=== PATIENT | female | born 1950 | race Caucasian/White ===

== ENCOUNTER 2019-09-30 08:51 | Outpatient (CLI) | payer MEDICARE, SELFPAY ==
--- NOTE | ~2019-09-30 | MM_ITS ---
EXAMINATION: MM screening [place] BI w ramses HISTORY: Screening mammogram TECHNIQUE: Craniocaudal and mediolateral oblique 3-D tomosynthesis images were obtained and synthetic 2-D images were generated. CAD analysis was submitted and interpreted. COMPARISON: No prior mammogram is available for comparison at this institution. BREAST PARENCHYMAL COMPOSITION: There are scattered areas of fibroglandular density. FINDINGS: RIGHT BREAST: There is focal asymmetry in the upper outer quadrant of the right breast. LEFT BREAST: There is no evidence of suspicious mass, calcification, or architectural distortion to s uggest malignancy. There has been no significant interval change. IMPRESSION: 1. Focal asymmetry in the upper outer quadrant of the right breast which may represent the patient's baseline however no comparison is currently available. 2. Recommend routine screening mammography in one year. BI-RADS Category 0: Incomplete: Needs comparison with prior mammograms. Reviewed, dictated and finalized at location A. WORKER IMPRESSION: 1. Focal asymmetry in the upper outer quadrant of the right breast which may re present the patient's baseline however no comparison is currently available. 2. Recommend routine screening mammography in one year. BI-RADS Category 0: Incomplete: Needs comparison with prior mammograms.
--- NOTE | ~2019-09-30 | DEXA_ITS ---
Bone Density Report Name: Ani Ortiz Age: 69 Sex: Female Ethnicity: White Date of : 1950 Indication: postmenopausal; hysterectomy; Referring Provider: HARPER, LUIS Study: Bone densitometry was performed. Exam Date: September 30, 2019 Accession number: [id number] Bone Density: Region BMD T-score Z-score Classification AP Spine (L1-L4) 1.003 -0.4 1.5 Normal Femoral Neck (Left) 0.643 -1.9 -0.2 Osteopenia Total Hip (Left) 0.837 -0.9 0.5 Normal Total Hip Bilateral Avg 0.804 -1.1 0.3 Osteopenia Femoral Neck (Right) 0.616 -2.1 -0.4 Osteopenia Total Hip (Right) 0.770 -1.4 0.0 Osteopenia World Health Organization criteria for BMD impression classify patients as: Normal (T-score at or above -1.0), Osteopenia (T-score between -1.0 and -2.5), or Osteoporosis (T-score at or below -2.5). 10-year Fracture Risk: FRAX not reported because: Treated for osteoporosis Clinical Information Provided by Patient: Is being treated for osteoporosis Has used the following medications: Fosamax (i.e. alendronate) Has the following medical conditions: Hysterectomy Patient maximum height was 62 Menopause Age: 52 Drinks caffeinated beverages Onset of menses at age 13 Number of children 3 Impression: The patient has low bone mass, based on the Right Femoral Neck T-score. Discussion: It is important to ask patients whether they are taking their medications and to encourage continued and appropriate compliance with their osteoporosis therapies to reduce fracture risk. It is also important to review their risk factors and encourage appropriate calcium and vitamin D intakes, exercise, fall prevention and other lifestyle measures. Follow-Up: Consider a repeat BMD and Vertebral Fracture Assessment (VFA) exam in 2 years or sooner if medically necessary, to reassess this patient's status. Reported by: [facility] on 09/30/2019 9:39:00 AM. Reviewed, dictated and finalized at location ARadha ELIZONDO
== END 2019-09-30 08:52 | disposition home or self-care (01) ==
LOC: ANHIMG 09:02
PROVIDERS: PCP Physician Assistant; Visit Provider Physician Assistant
DX: Z12.31 Encounter for screening mammogram for malignant neoplasm of breast (principal); M85.80 Other specified disorders of bone density and structure, unspecified site; M85.852 Other specified disorders of bone density and structure, left thigh; M85.851 Other specified disorders of bone density and structure, right thigh
CPT/HCPCS: 77063; 77067; 77080

== ENCOUNTER 2020-01-09 07:38 | Outpatient (CLI) | payer MEDICARE, SELFPAY ==
--- NOTE | ~2020-01-09 | CT_ITS ---
EXAMINATION: CT lung screening EXAM DATE: 01/09/2020 08:03 INDICATION: Personal history of nicotine dependence. TECHNIQUE: Spiral low dose CT of the chest without contrast. Axial, coronal and sagittal images were reviewed. The dose-length product (DLP) for this examination was 61.35 mGy-cm. The exposure was ta ilored according to patient size (auto mA exposure control), and iterative reconstruction (ASIR) was used as additional dose reduction technique. There is no prior study for comparison. FINDINGS: Pleural-based right minor fissure 3 mm lobe nodule. There is 2 mm left upper lobe nodule. Mild emphysema and hyperinflation. There is mild bronchiectasis. Tracheobronchial tree is patent. There is no mediastinal, hilar or axillary lymphadenopathy. There are no pleural or pericardial eff usions. There is no pneumothorax. Heart normal in size. There is moderate to severe coronary ar terial calcification, arterial sclerosis. There is left nephrolithiasis. Cholecystectomy clips. There is small sliding gastroesophageal hiatal hernia. There is thoracic spondylosis without osteoblastic or osteolytic lesions identified. IMPRESSION: 1. Lung-RADS category 2S, benign appearance or behavior (<1% chance of malignancy); recommend continu ed LDCT screening in 1 year. 2. Moderate to severe coronary artery calcifications. Consider follow-up nonemergent cardiology evalu ation if not recently evaluated. Reviewed, dictated and finalized at location B. RVISOR OF OPERATIONS IMPRESSION: 1. Lung-RADS category 2S, benign appearance or behavior (<1% chance of malignan cy); recommend continued LDCT screening in 1 year. 2. Moderate to severe coronary artery calcifications. Consider follow-up noneme rgent cardiology evaluation if not recently evaluated.
== END 2020-01-09 07:39 | disposition home or self-care (01) ==
LOC: ANHIMG 07:45
PROVIDERS: PCP Physician Assistant; Visit Provider Physician Assistant
DX: Z12.2 Encounter for screening for malignant neoplasm of respiratory organs (principal); Z87.891 Personal history of nicotine dependence; I25.10 Atherosclerotic heart disease of native coronary artery without angina pectoris
CPT/HCPCS: G0297

== ENCOUNTER 2020-12-10 11:13 | Outpatient (CLI) | payer MEDICARE, SELFPAY ==
[2020-12-10 12:24] LABS: Alanine Aminotransferase 19 U/L (4-35); Albumin Level 4.1 g/dL (3.5-5.1); Alkaline Phosphatase 88 U/L (38-126); Anion Gap 7 mmol/L (8-16); Aspartate Amino Transferase 24 U/L (14-36); Bilirubin,Total 0.5 mg/dL (0.2-1.3); Blood Urea Nitrogen 16 mg/dL (7-17); Calcium 9.6 mg/dL (8.4-10.2); Carbon Dioxide 28 mmol/L (22-30); Chloride 107 mmol/L (98-107); Cholesterol 126 mg/dL (0-200); Estimated Glomerular Filt Rate 49; Glucose 97 mg/dL (65-105); HDL Direct 43 mg/dL; Potassium 4.2 mmol/L (3.4-5.0); Sodium 142 mmol/L (137-145); Triglycerides 86 mg/dL (<150)
[2020-12-10 12:34] LABS: LDL Cholesterol Direct 62 mg/dL
== END 2020-12-10 11:14 | disposition home or self-care (01) ==
PROVIDERS: PCP Physician Assistant; Visit Provider Internal Medicine Cardiovascular Disease
DX: I25.10 Atherosclerotic heart disease of native coronary artery without angina pectoris (principal); E78.2 Mixed hyperlipidemia
CPT/HCPCS: 36415; 80053; 80061

== ENCOUNTER 2021-01-20 07:54 | Outpatient (CLI) | payer MEDICARE, SELFPAY ==
--- NOTE | ~2021-01-20 | CT_ITS ---
EXAMINATION: CT lung screening EXAM DATE: 01/20/2021 08:23 INDICATION: Former smoker [id number]. TECHNIQUE: Spiral low dose CT of the chest without contrast. Axial, coronal and sagittal images were reviewed. The dose-length product (DLP) for this examination was 61.99 mGy-cm. The exposure was ta ilored according to patient size (auto mA exposure control), and iterative reconstruction (ASIR) was used as additional dose reduction technique. Comparison is made to prior examination from 01/09/2020. FINDINGS: Pleural-based right minor fissure 3 mm lobe nodule unchanged. There is 2 mm left upper lob e nodule unchanged. Mild emphysema and hyperinflation. There is mild bronchiectasis. Tracheobronchia l tree is patent. There is no mediastinal, hilar or axillary lymphadenopathy. There are no pleura l or pericardial effusions. There is no pneumothorax. Heart normal in size, with thin endocardial fat along the septal wall consistent with prior infarctio n. Cardiology consult was recommended on prior study if patient had not been recently evaluated. The re is moderate to severe coronary arterial calcification, arterial sclerosis unchanged. There is an aberrant right subclavian artery, a normal congenital variant. Large is exophytic left renal fluid density lesion measuring 4.4 cm incompletely imaged, statisticall y most likely cyst. There is left nephrolithiasis. Cholecystectomy clips. There is small sliding tana roesophageal hiatal hernia. There is mild thoracic spondylosis without osteoblastic or osteolytic le sions identified. There is no significant interval change. IMPRESSION: Lung-RADS category 2, benign appearance or behavior (<1% chance of malignancy); recommend continued LDCT screening in 1 year. Reviewed, dictated and finalized at location B. 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
== END 2021-01-20 07:55 | disposition home or self-care (01) ==
LOC: ANHIMG 07:58
PROVIDERS: PCP Physician Assistant; Visit Provider Physician Assistant
DX: Z87.891 Personal history of nicotine dependence (principal)
CPT/HCPCS: 71271

== ENCOUNTER → 2022-02-08 11:37 | Outpatient (CLI) | payer MEDICARE, SELFPAY ==
--- NOTE | ~2022-02-08 | XR_ITS ---
XR chest 2V DATE: 02/08/2022 11:50 INDICATION: Cough for one week TECHNIQUE: 2 views COMPARISON: 01/20/2021 CT lung screening FINDINGS: Normal heart size. Aortic calcification. No hilar or mediastinal enlargement. No pulmonary infiltrate or consolidation, pleural effusion or pulmonary vascular congestion or pneumo thorax. Diffuse osteopenia. Mild scoliosis of the thoracic spine. IMPRESSION: No active cardiopulmonary disease Reviewed, dictated and finalized at location A.
== END ==
PROVIDERS: PCP Physician Assistant; Visit Provider Physician Assistant
DX: R05.9 Cough, unspecified (principal)
CPT/HCPCS: 71046

== ENCOUNTER 2022-03-13 14:33 | Outpatient (CLI) | payer MEDICARE, SELFPAY ==
--- NOTE | ~2022-03-13 | DEXA_ITS ---
Bone Density Report Name: ZOË RAI Age: 71 Sex: Female Ethnicity: White Date of : 1950 Indication: postmenopausal; screening for osteoporosis; asthma or emphysema; hysterectomy; Referring Provider: HARPERLUIS Study: Bone densitometry was performed. Exam Date: March 13, 2022 Accession number: [id number] Bone Density: Region BMD T-score Z-score Classification AP Spine(L1-L4) 0.961 -0.8 1.3 Normal Femoral Neck (Left) 0.652 -1.8 0.0 Osteopenia Total Hip (Left) 0.815 -1.0 0.5 Normal Femoral Neck (Right) 0.628 -2.0 -0.2 Osteopenia Total Hip (Right) 0.742 -1.6 -0.1 Osteopenia Total Hip Mean 0.778 -1.3 0.2 Osteopenia World Health Organization criteria for BMD impression classify patients as: Normal (T-score at or above -1.0), Osteopenia (T-score between -1.0 and -2.5), or Osteoporosis (T-score at or below -2.5). 10-year Fracture Risk: FRAX not reported because: Treated for osteoporosis Clinical Information Provided by Patient: Is being treated for osteoporosis Has used the following medications: Vitamin D Has the following medical conditions: Asthma or Emphysema, Hysterectomy Patient maximum height was 62 Menopause Age: 44 Drinks caffeinated beverages Onset of menses at age 12 Number of children 3 Impression: The patient has low bone mass, based on the Right Femoral Neck T-score. Discussion: It is important to ask patients whether they are taking their medications and to encourage continued and appropriate compliance with their osteoporosis therapies to reduce fracture risk. It is also important to review their risk factors and encourage appropriate calcium and vitamin D intakes, exercise, fall prevention and other lifestyle measures. Follow-Up: Consider a repeat BMD and Vertebral Fracture Assessment (VFA) exam in 2 years or sooner if medically necessary, to reassess this patient's status. Reported by: CINDY on 03/13/2022 2:58:00 PM. Reviewed, dictated and finalized at location ARadha ELIZONDO
--- NOTE | ~2022-03-13 | MM_ITS ---
EXAMINATION: MM screening [place] w ramses HISTORY: Screening mammogram TECHNIQUE: Craniocaudal and mediolateral oblique 3-D tomosynthesis images were obtained and synthetic 2-D images were generated. CAD analysis was submitted and interpreted. COMPARISON: Outside 11/20/2016, 09/30/2019 bilateral screening mammogram examinations BREAST PARENCHYMAL COMPOSITION: There are scattered areas of fibroglandular density. FINDINGS: There is no evidence of suspicious mass, calcification, or architectural distortion to sugg est malignancy in either breast. There has been no suspicious interval change. IMPRESSION: 1. No mammographic evidence of malignancy. 2. Recommend routine screening mammography in one year. BI-RADS Category 1: Negative Reviewed, dictated and finalized at location A.
--- NOTE | ~2022-03-13 | CT_ITS ---
EXAMINATION: CT lung screening DATE: 03/13/2022 15:35 INDICATION: Personal history of nicotine dependence, prior smoker with 30 pack year history TECHNIQUE: Computed tomography (CT) of the chest was performed without intravenous contrast. The dose -length product (DLP) was 67.12 mGy-cm. Automated exposure control and iterative reconstruction techn [employer] were employed. COMPARISON: 01/20/2021 FINDINGS: There is a stable 2 mm nodule in the left upper lobe. No new pulmonary nodule is identified . The lungs are free of focal airspace opacities. There is mild atelectasis. There is no pleural effu nahum or pneumothorax. No pathologically enlarged thoracic lymph nodes are identified. The heart size is normal. 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 There is calcified coronary artery atherosclerosis. Subendocardial fat deposition in the heart suggests prior myocardial infarct ion. There is a small sliding hiatal hernia. The gallbladder is surgically absent. There is a partial ly imaged 4.5 cm cyst of the left kidney. An 8 mm nonobstructing stone is present in the upper pole o f the left kidney. IMPRESSION: 1. Lung-RADS category 2: Benign appearance or behavior. Continue annual screening with noncontrast lo w-dose chest CT in 12 months. Reviewed, dictated and finalized at location A. IMPRESSION: 1. Lung-RADS category 2: Benign appearance or behavior. Continue annual screeni ng with noncontrast low-dose chest CT in 12 months.
== END 2022-03-13 14:34 | disposition home or self-care (01) ==
PROVIDERS: PCP Physician Assistant; Visit Provider Physician Assistant
DX: Z12.31 Encounter for screening mammogram for malignant neoplasm of breast (principal); Z12.2 Encounter for screening for malignant neoplasm of respiratory organs; Z87.891 Personal history of nicotine dependence; Z78.0 Asymptomatic menopausal state; M85.852 Other specified disorders of bone density and structure, left thigh; M85.851 Other specified disorders of bone density and structure, right thigh
CPT/HCPCS: 71271; 77063; 77067; 77080

== ENCOUNTER 2022-04-08 16:41 | Observation (INO) | payer MEDICARE, SELFPAY ==
[2022-04-08] VITALS (13 sets, daily range): BP systolic 143–170; BP diastolic 69–81; PULSE 80–88; RESP 11–18; TEMP 36.4–36.5; O2SAT 90–99; BMI 27.1
--- NOTE | ~2022-04-08 | XR_ITS ---
EXAMINATION: XR chest 1V portable 04/08/2022 18:00 INDICATION: Dyspnea. PROCEDURE: AP portable chest COMPARISON: 02/08/2022 FINDINGS: The lungs are clear. Shallow inspiration with crowding of the pulmonary vessels. The cardio mediastinal silhouette is within normal limits. There are no pleural effusions. There is no pneumot horax suspected. IMPRESSION: 1: NO ACUTE CARDIOPULMONARY DISEASE. Reviewed, dictated and finalized at location A.
--- NOTE | ~2022-04-08 | CT_ITS ---
EXAMINATION: CT abdomen pelvis wo con DATE: 04/08/2022 17:11 INDICATION: Left flank pain and hematuria for 2 days. History of kidney stones. TECHNIQUE: Computed tomography (CT) of the abdomen and pelvis was performed without intravenous contr ast. The dose-length product was 358.73 mGy-cm. Automated exposure control and iterative reconstructi on technique were employed. COMPARISON: No prior studies for comparison. FINDINGS: Heart size normal. No significant pleural or pericardial effusion. Small hiatal hernia. Mil d atherosclerosis. No evidence for lymphadenopathy. Status post cholecystectomy. The liver, spleen, pancreas, adrenal glands are unremarkable. There are right renal cysts. There are left renal stones. There is moderate left hydroureteronephrosis secondar y to an obstructing distal left ureteral stone measuring 7 mm, image 134. There are left renal cysts. Nonobstructive bowel gas pattern. Normal appendix. Status post hysterectomy. No free air or free flui d. IMPRESSION: 1. Obstructing distal left ureteral stone in the pelvis measuring 7 mm with moderate resultant hydrou reteronephrosis. 2: Nonobstructing left nephrolithiasis. Reviewed, dictated and finalized at location A. IMPRESSION: 1. Obstructing distal left ureteral stone in the pelvis measuring 7 mm with mod erate resultant hydroureteronephrosis. 2: Nonobstructing left nephrolithiasis.
--- NOTE | ~2022-04-08 | XR_ITS ---
XR abdomen/kub 1V 04/08/2022 18:25 Indication: Left renal and ureteral stones Procedure: KUB Comparison: CT dated 04/08/2022 Findings: r there is a 10 x 5 mm left renal stone overlying the upper pole of the left kidney. There is a 7 mm distal left ureteral stone overlying the left sacrum. There are pelvic phleboliths. Bowel g as pattern nonobstructive. Moderate lumbar spondylosis. Impression: 1: Left renal and distal ureteral stones are radiopaque and identified by KUB. Reviewed, dictated and finalized at location A. Impression: 1: Left renal and distal ureteral stones are radiopaque and identified by KUB.
--- NOTE | ~2022-04-08 | XR_ITS ---
XR retrograde pyelo w/stent LT DATE: 04/09/2022 09:14 INDICATION: 7 mm obstructing distal left ureteral calculus TECHNIQUE: 119.4 seconds fluoroscopy time 1.23 mGym2 Multiple spot C-arm images during left retrograde pyelogram and left internal urinary stent placement COMPARISON: 04/08/2022 CT abdomen pelvis FINDINGS: Engineering Consultant radiograph reveals the calcified obstructing calculus of the left ureter anterior to the lower aspect of the left sacroiliac joint. There is prominent hydroureteronephrosis proximal to t his level. There is subsequent placement of a left internal urinary stent, proximal pigtail overlying the left r enal pelvis, the distal pigtail overlying the left side of the base of the urinary bladder. IMPRESSION: Obstructing distal left ureteral calculus with hydroureteronephrosis. Left internal urina ry stent placement Please refer to urology procedure report. Reviewed, dictated and finalized at Location [facility]. Reviewed, dictated and finalized at location A. IMPRESSION: Obstructing distal left ureteral calculus with hydroureteronephrosi s. Left internal urinary stent placement Please refer to urology procedure report.
--- NOTE | 2022-04-08 16:59 | ED.GENADULT ---
HPI - General Adult General Chief complaint: Urogenital-Female Stated complaint: blood in urine Time Seen by Provider: 04/08/22 16:48 History of Present Illness HPI narrative: 72-year-old female with history of kidney stones presents here with some blood she noticed in her urine this morning, along with pain that went from her left back to the left lower quadrant, it is tender to touch, she states it feels like her kidney stones which she last had about 12 years ago. Minimal nausea, has not taken anything yet. No vomiting or diarrhea. No dysuria. No fevers or chills Related Data Home Medications Medication Instructions Recorded Confirmed albuterol sulfate 90 mcg/actuation inh inhalation PRN Dyspnea 04/08/22 aerosol inhaler bupropion HCl 300 mg 24 hr tablet, 300 tablet PO DAILY 04/08/22 extended release buspirone 15 mg tablet 15 tablet TID 04/08/22 clonazepam 1 mg tablet 1 tablet PRN Anxiety 04/08/22 fluoxetine 20 mg capsule 20 cap DAILY 04/08/22 fluoxetine 40 mg capsule 40 cap DAILY 04/08/22 rosuvastatin 40 mg tablet 40 tablet DAILY 04/08/22 zolpidem 10 mg tablet 10 tablet HS 04/08/22 Allergies Allergy/AdvReac Type Severity Reaction Status Date / Time cephalexin [From Keflex] Allergy Rash Verified 04/08/22 16:42 erythromycin base Allergy Unknown Verified 04/08/22 16:59 Penicillins Allergy Unknown Verified 04/08/22 16:42 Tetracyclines Allergy Rash Verified 04/08/22 16:42 Review of Systems Review of Systems: CONST: No fever. HEENT: No sore throat C/V: No chest pain RESP: No cough GI: Reports abdominal pain, nausea : No dysuria. M/S: No joint pain. SKIN: No rash. NEURO: [No headache or focal numbness or weakness] PSYCH: [No depression] [facility] Past Medical History Medical History Kidney stones Surgical History Surgical History (Updated 04/08/22 @ 17:03 by Laverne Ugarte MD) H/O: hysterectomy Exam Narrative: EXAMINATION OF ORGAN SYSTEMS/BODY AREAS: Constitutional: Vital signs per nursing GENERAL: Appears slightly uncomfortable in bed HEAD: Normal with no signs of head trauma. EYES: EOMI, conjunctiva normal ENT: Hearing grossly intact LUNGS: Nonlabored breathing. HEART: [Regular rate and rhythm] ABD: [Soft], [tender to palpation] left lower quadrant, CVAT EXT: Normal range of motion SKIN: [No rashes or lesions.] NEURO: [Alert and oriented x 3. No gross focal sensory or strength deficits.] PSYCH: Normal affect Course Vital Signs Vital signs: Vital Signs Temperature 97.7 F 04/08/22 16:44 Pulse Rate 80 04/08/22 16:44 Respiratory Rate 16 04/08/22 16:44 Blood Pressure 170/75 H 04/08/22 16:44 Pulse Oximetry 98 04/08/22 16:44 Temperature 97.7 F 04/08/22 16:44 Pulse Rate 86 04/08/22 18:31 Respiratory Rate 15 04/08/22 18:31 Blood Pressure 143/69 H 04/08/22 18:31 Pulse Oximetry 93 04/08/22 18:31 Medical Decision Making [facility] Narrative Medical decision making narrative: 72-year-old female presenting with left lower quadrant pain, vital signs stable, exam shows tenderness to left lower quadrant and left flank, differential detailed below, CT does show left ureteral stone that is obstructing, 7 mm, patient did require multiple IV medications for pain and still not very well under control, I do therefore feel was necessary to admit her for inpatient therapy, case discussed with urologist will likely take her to the OR in the morning, case discussed with hospitalist was excepting. At this time, patient started saying that she was having some chest pain, midsternal, nonradiating, never had history of heart problems in the past, stat EKG ordered and reviewed by myself, no STEMI, troponin and chest x-ray are ordered and unremarkable. Differential Diagnosis Differential Diagnosis: UTI/pyelonephritis, diverticulitis, gastroenteritis, nephrolithiasis Vital Signs Vital Signs: Vital Signs Tem
[2022-04-08] MEDS: SODIUM CHLORIDE 0.9% IV 1,000 ML 999 ML IV CONT (17:17)
[2022-04-08] MEDS: ONDANSETRON INJ 4 MG/2 ML VIAL IV PUSH ×2 (17:17→20:52)
[2022-04-08] MEDS: MORPHINE SULFATE (*CRX) 4 MG/ML INJ IV PUSH (17:17)
[2022-04-08 17:24] LABS: Basophils Absolute Auto 0.1 K/mm3 (0.0-0.1); Basophils Percent Auto 0.6 % (0.2-1.2); Eosinophils Absolute Auto 0.2 K/mm3 (0-0.3); Hematocrit 41.4 % (37.0-47.0); Hemoglobin 13.1 g/dL (12.0-15.0); Immature Granulocyte Absolute 0.04 K/mm3 (0.00-0.031); Immature Granulocyte Percent A 0.5 % (0-0.5); Lymphocytes Absolute Auto 1.58 K/mm3 (0.9-3.2); Lymphocytes Percent Auto 18.2 % (18.3-44.2); Mean Corpuscular HGB Conc 31.6 g/dl (32-36); Mean Corpuscular Hemoglobin 29.7 pg (26-34); Mean Corpuscular Volume 93.9 fl (80-100); Mean Platelet Volume 10.6 fl (7.4-10.4); Monocytes Absolute Auto 0.8 K/mm3 (0.1-0.6); Monocytes Percent Auto 8.7 % (2.6-8.5); Neutrophils Absolute Auto 6.1 K/mm3 (1.3-6.7); Platelet Count Result 231 k/mm3 (150-375); Red Blood Count 4.41 M/mm3 (4.2-5.4); Red Cell Distribution Width 12.6 % (11.5-14.5); White Blood Count 8.7 K/mm3 (4.5-10.0)
[2022-04-08 17:27] LABS: Add Urine Microscopic? YES; Appearance Urine Slightly Cloudy (Clear); Bilirubin Urine Negative (Negative); Blood Urine 3+ (Negative); Color Urine Red (Yellow); Glucose Urine UA Negative (Negative); Ketones Urine Negative (Negative); Leukocyte Esterase Ur Trace LEU/UL (Negative); Nitrate Urine Negative (Negative); Protein Urine 2+ mg/dL (Negative); Specific Grav Ur >= 1.030 (1.001-1.035); Urobilinogen Urine 0.2 mg/dL (<2.0)
[2022-04-08 17:35] LABS: Calcium Oxalate Crystals Urine Present /hpf; RBC Urine >75 /hpf (0-2); WBC Urine 0-3 /hpf
--- NOTE | 2022-04-08 17:45 | ECG_ITS ---
Measurements Intervals [place] Rate: 80 P: 64 WI: 175 QRS: 49 QRSD: 96 T: 40 QT: 393 QTc: 455 Interpretive Statements SINUS RHYTHM BASELINE WANDER- V6 NORMAL ECG Electronically Signed On 04-09-2022 15:11:35 CDT by Vicente Espino D.O.
[2022-04-08 17:51] LABS: Alanine Aminotransferase 19 U/L (6-35); Albumin Level 3.5 g/dL (3.5-5.1); Alkaline Phosphatase 86 U/L (38-126); Anion Gap 7 mmol/L (8-16); Aspartate Amino Transferase 23 U/L (14-36); Bilirubin,Total 0.2 mg/dL (0.2-1.3); Blood Urea Nitrogen 12 mg/dL (7-17); Calcium 8.3 mg/dL (8.4-10.2); Carbon Dioxide 23 mmol/L (22-30); Chloride 112 mmol/L (98-107); Estimated CRCL calculation 35 ml/min; Estimated Glomerular Filt Rate 44; Glucose 103 mg/dL (65-110); Lipase 48 U/L (23-300); Potassium 3.7 mmol/L (3.4-5.0); Sodium 142 mmol/L (137-145)
[2022-04-08] MEDS: HYDROmorphone HCL INJ (*CRX) 1 MG/ML SYR IV PUSH (17:59)
--- NOTE | 2022-04-08 18:08 | WPDANESEPP ---
Anes - Eval Pre Procedure Date/Time: 04/08/22 18:08 Pre Op Diagnosis: L Ureteral Stone Patient Data Age: 72 Gender: F Height: 1.57 m Weight: 68 kg Last Vital Signs Temp 36.5 C 04/08/22 16:44 Pulse 80 04/08/22 16:44 Resp 16 04/08/22 16:44 BP 170/75 H 04/08/22 16:44 Pulse Ox 98 04/08/22 16:44 Allergies Allergy/AdvReac Type Severity Reaction Status Date / Time cephalexin [From Keflex] Allergy Rash Verified 04/08/22 16:42 erythromycin base Allergy Unknown Verified 04/08/22 16:59 Penicillins Allergy Unknown Verified 04/08/22 16:42 Tetracyclines Allergy Rash Verified 04/08/22 16:42 Home Medications Medication Instructions Recorded Confirmed Type albuterol sulfate 90 mcg/actuation 2 puff inhalation Q4-5H PRN Dyspnea 04/08/22 04/08/22 History aerosol inhaler bupropion HCl 300 mg 24 hr tablet, 300 tablet PO DAILY 04/08/22 04/08/22 History extended release buspirone 15 mg tablet 15 mg TID PRN Anxiety 04/08/22 04/08/22 History clonazepam 1 mg tablet 1 tablet BID PRN Anxiety 04/08/22 04/08/22 History fluoxetine 20 mg capsule 20 cap DAILY 04/08/22 04/08/22 History fluoxetine 40 mg capsule 40 cap DAILY 04/08/22 04/08/22 History rosuvastatin 40 mg tablet 40 tablet DAILY 04/08/22 04/08/22 History zolpidem 10 mg tablet 10 tablet HS 04/08/22 04/08/22 History Laboratory Tests 04/08/22 04/08/22 04/08/22 17:18 17:18 17:32 WBC 8.7 K/mm3 K/mm3 (4.5-10.0) RBC 4.41 M/mm3 M/mm3 (4.2-5.4) Hgb 13.1 g/dL g/dL (12.0-15.0) Hct 41.4 % % (37.0-47.0) MCV 93.9 fl fl (80-100) MCH 29.7 pg pg (26-34) MCHC 31.6 g/dl L g/dl (32-36) RDW 12.6 % % (11.5-14.5) Plt Count 231 k/mm3 k/mm3 (150-375) MPV 10.6 fl H fl (7.4-10.4) Immature Gran % (Auto) 0.5 % % (0-0.5) Neut % (Auto) 70.0 % % (45.5-73.1) Lymph % (Auto) 18.2 % L % (18.3-44.2) [place] % (Auto) 8.7 % H % (2.6-8.5) Eos % (Auto) 2.0 % % (0-4.4) Baso % (Auto) 0.6 % % (0.2-1.2) Lymph # (Auto) 1.58 K/mm3 K/mm3 (0.9-3.2) [place] # (Auto) 0.8 K/mm3 H K/mm3 (0.1-0.6) Eos # (Auto) 0.2 K/mm3 K/mm3 (0-0.3) Baso # (Auto) 0.1 K/mm3 K/mm3 (0.0-0.1) Abs Immat Gran (auto) 0.04 K/mm3 H K/mm3 (0.00-0.031) Absolute Neuts (auto) 6.1 K/mm3 K/mm3 (1.3-6.7) Absolute Nucleated RBC 0.0 K/mm3 K/mm3 (0.0-0.012) Nucleated RBC % 0.0 % % (0.0-0.2) Sodium 142 mmol/L mmol/L (137-145) Potassium 3.7 mmol/L mmol/L (3.4-5.0) Chloride 112 mmol/L H mmol/L (98-107) Carbon Dioxide 23 mmol/L mmol/L (22-30) Anion Gap 7 mmol/L L mmol/L (8-16) BUN 12 mg/dL mg/dL (7-17) Creatinine 1.20 mg/dL H mg/dL (0.7-1.0) Estim Creat Clear Calc 35 ml/min ml/min Estimated GFR 44 L (59 - ) Glucose 103 mg/dL mg/dL (65-110) Calcium 8.3 mg/dL L mg/dL (8.4-10.2) Total Bilirubin 0.2 mg/dL mg/dL (0.2-1.3) AST 23 U/L U/L (14-36) ALT 19 U/L U/L (6-35) Alkaline Phosphatase 86 U/L U/L (38-126) Total Protein 6.0 g/dL L g/dL (6.3-8.2) Albumin 3.5 g/dL g/dL (3.5-5.1) Lipase 48 U/L U/L (23-300) Urine Color Red H (Yellow) Urine Appearance Slightly cloudy (Clear) Urine pH 6.0 (5.0-9.0) Ur Specific [place] >= 1.030 (1.001-1.035) Urine Protein 2+ mg/dL H mg/dL (Negative) Urine Glucose (UA) Negative mg/dL mg/dL (Negative) Urine Ketones Negative mg/dL mg/dL (Negative) Ur Blood (Man) 3+ H (Negative) Urine Nitrate Negative (Negative) Urine Bilirubin Negative (Negative) Urine Urobilinogen 0.2 mg/dL mg/dL (<2.0) Leukocyte E
[2022-04-08 18:35] LABS: Troponin I < 0.012 ng/mL (0.000-0.034)
--- NOTE | 2022-04-08 20:06 | PM.IMHP ---
H&P: HPI History of Present Illness Date/Time: 04/08/22 20:06 Chief Complaint: hematuria and flank pain Narrative: 72-year-old female with past medical history significant for kidney stones is presenting with hematuria and flank plain concerning for another kidney stone. She stated that she 1st noted the blood in her urine this morning and the pain started in her left flank and radiated down to the left lower quadrant and was tender to palpation. She states it feels like a kidney stone she had about 12 years ago. She did have a little bit of associated nausea, no emesis or diarrhea. No fevers or chills. In the ER, she was noted to be afebrile vital signs were stable. CT stone protocol did show a left ureteral stone with obstructing hydronephrosis that was about 7 mm in diameter. She was given multiple doses of IV pain medication with associated IV fluids. Urology was consulted and will evaluate. While in the ER, she did have an episode of chest pain that was mid substernal and did not radiate, EKG was nonacute and troponin was negative. Chest x-ray also ordered was not acute. CBC was stable BMP showed a creatinine of 1.2 but was otherwise within normal limits. Baseline creatinine is unknown, but in 2020 her creatinine is 1.1. Urinalysis was positive for blood but no signs of infection. Review of Systems Review of Systems: Twelve point review of systems was reviewed and is negative except as noted in the HPI [facility] Past Medical History Medical History Kidney stones Surgical History Surgical History H/O: hysterectomy Family History Family History (Updated 04/08/22 @ 21:07 by Jorge Wells RN) Mother Hypercholesteremia Father Glioblastoma Social History Social History Years smoked: 40 Smoking status: Former smoker Alcohol intake: current Drinks per week: 1 Substance use: never Spiritual care concerns: No Meds Home Medications and Allergies Home Medications Medication Instructions Recorded Confirmed Type albuterol sulfate 90 mcg/actuation 2 puff inhalation Q4-5H PRN Dyspnea 04/08/22 04/08/22 History aerosol inhaler bupropion HCl 300 mg 24 hr tablet, 300 tablet PO DAILY 04/08/22 04/08/22 History extended release buspirone 15 mg tablet 15 mg TID PRN Anxiety 04/08/22 04/08/22 History clonazepam 1 mg tablet 1 tablet BID PRN Anxiety 04/08/22 04/08/22 History fluoxetine 20 mg capsule 20 cap DAILY 04/08/22 04/08/22 History fluoxetine 40 mg capsule 40 cap DAILY 04/08/22 04/08/22 History rosuvastatin 40 mg tablet 40 tablet DAILY 04/08/22 04/08/22 History zolpidem 10 mg tablet 10 tablet HS 04/08/22 04/08/22 History Allergies Allergy/AdvReac Type Severity Reaction Status Date / Time cephalexin [From Dhingana] Allergy Rash Verified 04/08/22 16:42 erythromycin base Allergy Unknown Verified 04/08/22 16:59 Penicillins Allergy Unknown Verified 04/08/22 16:42 Tetracyclines Allergy Rash Verified 04/08/22 16:42 Vital Signs Vital Signs - 24 hr 04/08/22 16:44 04/08/22 17:46 04/08/22 17:47 Temperature 97.7 F Pulse Rate 80 82 84 Respiratory Rate 16 14 16 Blood Pressure 170/75 H 170/81 H Pulse Oximetry 98 94 96 Oxygen Flow Rate 04/08/22 18:00 04/08/22 18:01 04/08/22 18:15 Temperature Pulse Rate 81 80 81 Respiratory Rate 11 L 12 15 Blood Pressure 156/71 H Pulse Oximetry 91 90 94 Oxygen Flow Rate 04/08/22 18:16 04/08/22 18:30 04/08/22 18:31 Temperature Pulse Rate 83 86 86 Respiratory Rate 17 17 15 Blood Pressure 158/72 H 143/69 H Pulse Oximetry 94 95 93 Oxygen Flow Rate 04/08/22 18:52 04/08/22 18:32 04/08/22 19:10 Temperature Pulse Rate 86 86 Respiratory Rate 13 16 Blood Pressure 146/69 H Pulse Oximetry 98 90 99 Oxygen Flow Rate 2 Exam Narrative: General: P
--- NOTE | 2022-04-08 20:20 | ADMGEN ---
This patient, Ani Ortiz, was admitted to Medical Room 244-. Patient/family oriented to hospital policies and general routines including ID bracelet, bed and alarms, visiting hours, pain management, procedures, bathroom and other care routines, personal items, smoking policy, room service/diet, and visiting hours. Information on how to activate the Rapid Response Team has been discussed. Patient/Family are encouraged to report perceived risks to care and to ask questions if they do not understand what they are told or what they should do.
[2022-04-08] MEDS: SODIUM CHLORIDE 0.9% IV 1,000 ML 125 ML IV CONT (20:52)
[2022-04-08] MEDS: CIPROFLOXACIN 400 MG/D5W 200ML 200 ML 200 MG IVPB (20:52)
[2022-04-08] MEDS: KETOROLAC 30 MG/ML VIAL (*BKC) IM (21:17)
[2022-04-08 21:27] LABS: Troponin I 0.024 ng/mL (0.000-0.034)
[2022-04-08] MEDS: ZOLPIDEM TARTRATE (*CRX) 5 MG TABLET 10 MG PO (22:45)
[2022-04-09] VITALS (19 sets, daily range): BP systolic 101–131; BP diastolic 47–59; PULSE 65–83; RESP 12–17; TEMP 36.1–37.2; O2SAT 95–100
[2022-04-09 00:50] LABS: Troponin I 0.077 ng/mL (0.000-0.034)
[2022-04-09] MEDS: KETOROLAC 30 MG/ML VIAL (*BKC) IV PUSH ×2 (03:19→19:41)
[2022-04-09 03:39] LABS: Troponin I 0.076 ng/mL (0.000-0.034)
[2022-04-09] MEDS: SODIUM CHLORIDE 0.9% IV 1,000 ML 125 ML IV CONT (05:38)
[2022-04-09 07:21] LABS: Anion Gap 3 mmol/L (8-16); Blood Urea Nitrogen 15 mg/dL (7-17); Calcium 8.1 mg/dL (8.4-10.2); Carbon Dioxide 25 mmol/L (22-30); Chloride 111 mmol/L (98-107); Estimated CRCL calculation 35 ml/min; Estimated Glomerular Filt Rate 44; Glucose 106 mg/dL (65-110); Potassium 4.5 mmol/L (3.4-5.0); Sodium 139 mmol/L (137-145)
--- NOTE | 2022-04-09 08:18 | WPDURCON ---
Assessment and Plan Assessment and plan (1) Flank pain, acute: Code(s): R10.9 - Unspecified abdominal pain Status: Acute (2) Calculus, ureteral: Code(s): N20.1 - Calculus of ureter Status: Acute Plan 72-year-old female with a left 7mm obstructing ureteral stone. Patient also with nonobstructing left renal stone 10mm. -I discussed options of medical expulsive therapy, ureteral stenting, ureteroscopy, ESWL with patient. She has elected proceed with cystoscopy and left ureteral stent insertion today with possible attempt for left ureteroscopy laser lithotripsy and stone extraction if the scope was easily advanced to the level of the stone. She understands the risks benefits and alternatives. She agrees to proceed with procedure today. She understands we will delay treatment of her nonobstructing renal stone to a later date. Patient time to ask questions and agrees to proceed Urology Consult Note HPI Date Seen: 04/09/22 Requesting Physician: Sarahi Stahl PA-C Primary Care Provider: Gabi Victoria, LUIS ARMANDO Consult Narrative Narrative: Ani Ortiz is a 72 year old female who presented to the ER last night with left-sided flank pain and hematuria. She was found to have a 7mm mid ureteral stone. The patient has a history kidney stone x1 having passed spontaneously 15 years ago. She currently denies fevers, chills, nausea vomiting. She continues to have left-sided flank pain. [facility] Past Medical History Medical History (Updated 04/09/22 @ 07:56 by Dion Augustine DO) Anxiety CAD (coronary artery disease) COPD (chronic obstructive pulmonary disease) Depression Kidney stones Surgical History Surgical History H/O: hysterectomy Family History Family History (Updated 04/08/22 @ 21:07 by Jorge Wells RN) Mother Hypercholesteremia Father Glioblastoma Social History Social History Years smoked: 40 Smoking status: Former smoker Alcohol intake: current Drinks per week: 1 Substance use: never Spiritual care concerns: No Meds Home Medications and Allergies Home Medications Medication Instructions Recorded Confirmed Type albuterol sulfate 90 mcg/actuation 2 puff inhalation Q4-5H PRN Dyspnea 04/08/22 04/08/22 History aerosol inhaler bupropion HCl 300 mg 24 hr tablet, 300 tablet PO DAILY 04/08/22 04/08/22 History extended release buspirone 15 mg tablet 15 mg TID PRN Anxiety 04/08/22 04/08/22 History clonazepam 1 mg tablet 1 tablet BID PRN Anxiety 04/08/22 04/08/22 History fluoxetine 20 mg capsule 20 cap DAILY 04/08/22 04/08/22 History fluoxetine 40 mg capsule 40 cap DAILY 04/08/22 04/08/22 History rosuvastatin 40 mg tablet 40 tablet DAILY 04/08/22 04/08/22 History zolpidem 10 mg tablet 10 tablet HS 04/08/22 04/08/22 History Allergies Allergy/AdvReac Type Severity Reaction Status Date / Time cephalexin [From Táximo] Allergy Rash Verified 04/08/22 16:42 erythromycin base Allergy Unknown Verified 04/08/22 16:59 Penicillins Allergy Unknown Verified 04/08/22 16:42 Tetracyclines Allergy Rash Verified 04/08/22 16:42 Vital Signs Vital Signs - 24 hr 04/08/22 16:44 04/08/22 17:46 04/08/22 17:47 Temperature 36.5 C Pulse Rate 80 82 84 Respiratory Rate 16 14 16 Blood Pressure 170/75 H 170/81 H Pulse Oximetry 98 94 96 Oxygen Delivery Oxygen Flow Rate 04/08/22 18:00 04/08/22 18:01 04/08/22 18:15 Temperature Pulse Rate 81 80 81 Respiratory Rate 11 L 12 15 Blood Pressure 156/71 H Pulse Oximetry 91 90 94 Oxygen Delivery Oxygen Flow Rate 04/08/22 18:16 04/08/22 18:30 04/08/22 18:31 Temperature Pulse Rate 83 86 86 Respiratory Rate 17 17 15 Blood Pressure 158/72 H 143/69 H Pulse Oximetry 94 95 93 Oxygen Delivery Oxygen Flow Rate 04/08/22 18:52 04/08/22 18:32 04/08/22 19:10
--- NOTE | 2022-04-09 08:22 | WPDHPUPDATE1 ---
History and Physical Update Update Date/Time: 04/09/22 08:22 History and Physical has been reviewed, including an updated exam of the patient. There are NO changes in the patient's condition. Risks, benefits, and alternatives have been discussed and questions answered. Patient agrees to proceed with procedure.
--- NOTE | 2022-04-09 08:24 | P.PNAN_ITS ---
Anes - Eval Final PreProcedure Day of Procedure 04/09/22 08:24 Patient weight: overweight Heart: regular rate and rhythm Lungs: clear to auscultation Airway: Mallampati scale class II Neurological: alert and oriented Last oral intake: >/= 8 hours ASA classification: III Emergent: no Anesthetic plan: proceed Anesthesia type and monitoring: general LMA and standard monitoring Results Review: All pre-operative results and documents have been reviewed as part of the pre- operative evaluation. Informed Consent: The patient's anesthetic plan and its attendant risks and benefits were discussed with the patient/family/POA. Questions were solicited and answers provided to the satisfaction of the patient/family/POA.
--- NOTE | 2022-04-09 08:26 | WPDANESEPP ---
Anes - Eval Pre Procedure Procedure: Operation Date: 04/09/22 09:00 Proposed Procedures p Cysto, RPG, Stone Ext, Stent Placement - Melani Fregoso MD Date/Time: 04/09/22 08:26 Pre Op Diagnosis: L Ureteral Stone Patient Data Age: 72 Gender: F Height: 1.57 m Weight: 67.4 kg Last Vital Signs Temp 36.6 C 04/09/22 04:01 Pulse 81 04/09/22 04:01 Resp 17 04/09/22 04:01 BP 109/57 L 04/09/22 04:01 Pulse Ox 97 04/09/22 04:01 O2 Del Method Room Air 04/08/22 21:00 O2 Flow Rate 2 04/08/22 18:52 Allergies Allergy/AdvReac Type Severity Reaction Status Date / Time cephalexin [From Keflex] Allergy Rash Verified 04/08/22 16:42 erythromycin base Allergy Unknown Verified 04/08/22 16:59 Penicillins Allergy Unknown Verified 04/08/22 16:42 Tetracyclines Allergy Rash Verified 04/08/22 16:42 Home Medications Medication Instructions Recorded Confirmed Type albuterol sulfate 90 mcg/actuation 2 puff inhalation Q4-5H PRN Dyspnea 04/08/22 04/08/22 History aerosol inhaler bupropion HCl 300 mg 24 hr tablet, 300 tablet PO DAILY 04/08/22 04/08/22 History extended release buspirone 15 mg tablet 15 mg TID PRN Anxiety 04/08/22 04/08/22 History clonazepam 1 mg tablet 1 tablet BID PRN Anxiety 04/08/22 04/08/22 History fluoxetine 20 mg capsule 20 cap DAILY 04/08/22 04/08/22 History fluoxetine 40 mg capsule 40 cap DAILY 04/08/22 04/08/22 History rosuvastatin 40 mg tablet 40 tablet DAILY 04/08/22 04/08/22 History zolpidem 10 mg tablet 10 tablet HS 04/08/22 04/08/22 History Laboratory Tests 04/08/22 04/08/22 04/08/22 17:18 17:18 17:31 WBC 8.7 K/mm3 K/mm3 (4.5-10.0) RBC 4.41 M/mm3 M/mm3 (4.2-5.4) Hgb 13.1 g/dL g/dL (12.0-15.0) Hct 41.4 % % (37.0-47.0) MCV 93.9 fl fl (80-100) MCH 29.7 pg pg (26-34) MCHC 31.6 g/dl L g/dl (32-36) RDW 12.6 % % (11.5-14.5) Plt Count 231 k/mm3 k/mm3 (150-375) MPV 10.6 fl H fl (7.4-10.4) Immature Gran % (Auto) 0.5 % % (0-0.5) Neut % (Auto) 70.0 % % (45.5-73.1) Lymph % (Auto) 18.2 % L % (18.3-44.2) Starr % (Auto) 8.7 % H % (2.6-8.5) Eos % (Auto) 2.0 % % (0-4.4) Baso % (Auto) 0.6 % % (0.2-1.2) Lymph # (Auto) 1.58 K/mm3 K/mm3 (0.9-3.2) Starr # (Auto) 0.8 K/mm3 H K/mm3 (0.1-0.6) Eos # (Auto) 0.2 K/mm3 K/mm3 (0-0.3) Baso # (Auto) 0.1 K/mm3 K/mm3 (0.0-0.1) Abs Immat Gran (auto) 0.04 K/mm3 H K/mm3 (0.00-0.031) Absolute Neuts (auto) 6.1 K/mm3 K/mm3 (1.3-6.7) Absolute Nucleated RBC 0.0 K/mm3 K/mm3 (0.0-0.012) Nucleated RBC % 0.0 % % (0.0-0.2) Sodium Potassium Chloride Carbon Dioxide Anion Gap BUN Creatinine Estim Creat Clear Calc Estimated GFR Glucose Calcium Total Bilirubin AST ALT Alkaline Phosphatase Troponin I < 0.012 ng/mL ng/mL (0.000-0.034) Total Protein Albumin Lipase Urine Color Red H (Yellow) Urine Appearance Slightly cloudy (Clear) Urine pH 6.0 (5.0-9.0) Ur Specific [place] >= 1.030 (1.001-1.035) Urine Protein 2+ mg/dL H mg/dL (Negative) Urine Glucose (UA) Negative mg/dL mg/dL (Negative) Urine Ketones Negative mg/dL mg/dL (Negative) Ur Blood (Man) 3+ H (Negative) Urine Nitrate Negative (Negative) Urine Bilirubin Negative (Negative) Urine Urobilinogen 0.2 mg/dL mg/dL (<2.0) Leukocyte Esterase Rfl Trace JAYANT/UL H JAYANT/UL (Negative) Urine RBC >75 /hpf H /hpf (0-2) Urine WBC 0-3 /hpf /hpf Calcium O
[2022-04-09 08:34] LABS: Hematocrit 35.2 % (37.0-47.0); Hemoglobin 10.9 g/dL (12.0-15.0); Mean Platelet Volume 10.6 fl (7.4-10.4); Platelet Count Result 193 k/mm3 (150-375); Red Blood Count 3.63 M/mm3 (4.2-5.4); Red Cell Distribution Width 12.5 % (11.5-14.5); White Blood Count 8.2 K/mm3 (4.5-10.0)
[2022-04-09] MEDS: LIDOCAINE HCL 2% GEL UROJET 10 ML PKG MUCOUS MEM (09:00)
[2022-04-09] MEDS: CIPROFLOXACIN 400 MG/D5W 200ML 200 ML 200 MG IVPB ×2 (09:07→20:58)
--- NOTE | 2022-04-09 09:11 | W.PM.PROC2 ---
Procedure Note - Detailed Date of Procedure 04/09/22 Pre-op Diagnosis L Ureteral Stone Post-op Diagnosis Same Procedure Performed Cystoscopy, left retrograde pyelogram, left ureteral stent insertion Surgeon Melani Fregoso MD Indications Obstructing 7mm ureteral stone Findings 7mm obstructing ureteral stone 10mm left renal stone Moderate left hydronephrosis Description of Procedure Informed consent was obtained. Patient was taken the operating. She was given preoperative IV antibiotics. She was induced with MAC anesthesia. She was prepped in the dorsal lithotomy position. Uro jet was instilled. We then inserted a 22 F cystoscope through the urethra into the bladder inspected bladder revealed there to be blood in the bladder however no mucosal abnormalities. The patient had bilateral orthotopic ureteral orifices. We did cannulate left ureteral orifice the wire did not easily pass beyond the level of the stone in the mid ureter. We then performed retrograde pyelogram that revealed moderate hydronephrosis above the level of the stone we were able this point to then pass the wire beyond the level of the stone and over the wire passed a 6 F variable length stent with a curl in the renal pelvis and curl in the bladder. Patient was then awakened taken recovery room stable condition Urine Output 300 Complications No immediate complications Condition Stable Disposition PACU
[2022-04-09] MEDS: LACTATED RINGERS 1,000 ML 30 ML IV CONT (09:17)
--- NOTE | 2022-04-09 11:05 | PM.CNCAR ---
Assessment and Plan Assessment and plan (1) Elevated troponin I level: Code(s): R77.8 - Other specified abnormalities of plasma proteins Status: Acute Assessment and Plan: Self-limited episode of chest pressure in the setting of severe abdominal pain related to obstructing ureteral calculus with significant BP elevation occurring at rest lasting no more than 5-10 minutes with subsequent mild troponin elevation without acute ischemic EKG changes. Most likely type 2 infarct, however, given evidence of significant coronary arterial calcification on CT and wrist fractures including dyslipidemia and history of tobacco abuse ischemic evaluation is warranted. Discussed at length. If patient has recurrent chest pain ischemic evaluation prior to discharge or of significant further troponin elevation discussed invasive versus noninvasive evaluation. Particularly given postoperative status prefer to pursue noninvasive evaluation as she would as well unless she develops recurrent symptoms concerning for unstable angina. She has been equivocal advised to notify us immediately should she have recurrent chest pain. She verbalized understanding and agrees. - Aspirin 81 mg daily - Continue statin therapy. - 2D echocardiogram in a.m. to assess for wall motion abnormalities, LV size and function valve pathology pulmonary pressures. - DVT prophylaxis - Repeat troponin for trend Will hold off on systemic anticoagulation unless significant further troponin elevation and a recurrent chest pain if okay with Urology. -further recommendations to follow based on troponin, symptoms and echocardiogram. (2) Chest pain at rest: Code(s): R07.9 - Chest pain, unspecified Status: Acute Assessment and Plan: As above. Monitor closely over recurrence. (3) Coronary artery calcification seen on CT scan: Code(s): I25.10 - Atherosclerotic heart disease of [place] coronary artery without angina pectoris Status: Acute Assessment and Plan: As above. Suggestive coronary artery disease luminal obstruction severity unknown. Previously patient has been completely asymptomatic without any limitations or exertional chest pain prior to admission. And medical therapy. (4) Mixed hyperlipidemia: Code(s): E78.2 - Mixed hyperlipidemia Status: Acute Assessment and Plan: Continue rosuvastatin goal LDL less than 70. (5) History of tobacco abuse: Code(s): Z87.891 - Personal history of nicotine dependence Status: Acute Assessment and Plan: Patient remains smoke-free. Encouraged to continue in this manner. (6) Calculus, ureteral: Code(s): N20.1 - Calculus of ureter Status: Acute Assessment and Plan: Per Urology. Doing well and asymptomatic status post cystoscopy and left ureteral stent insertion with moderate hydronephrosis above the level of the stone on the left. History of Present Illness History of Present Illness Consult date/time: Date of service: 04/09/22 11:05 Cardiology consultation at the request of Sarahi Stahl of the [facility] service for opinion regarding elevated troponin and chest pain Requesting physician: Sarahi Stahl PA-C Reason For Visit: L Ureteral Stone Narrative: Patient is a pleasant 72-year-old female followed by Dr. Lee as an outpatient for incidentally noted coronary artery calcification on CT chest, mixed hyperlipidemia, history of tobacco abuse, anxiety/depression who was in her usual state of health where she developed severe left flank pain and blood in her urine morning presentation. Patient indicated this felt similar to kidney stone she had many years ago. She admitted to some nausea but no emesis, diaphoresis, fevers, chills. While the emergency department lying supine in bed she developed mild chest pressure without radiation which lasted no more than 5-10 minutes resolving spontaneously. EKG was obtained without isch
[2022-04-09] MEDS: ROSUVASTATIN 10 MG TABLET 40 MG BY MOUTH (11:55)
[2022-04-09] MEDS: buPROPion HCL XL (24 HR) 150 MG TABCR 300 MG PO (11:55)
[2022-04-09] MEDS: FLUoxetine HCL 20 MG CAPSULE 60 MG BY MOUTH (11:55)
[2022-04-09 12:13] LABS: Troponin I 0.034 ng/mL (0.000-0.034)
[2022-04-09] MEDS: ASPIRIN 81 MG ENTERIC TABLET PO (13:43)
--- NOTE | 2022-04-09 13:57 | PM.IMPN ---
Progress Note: A&P Assessment and Plan (1) Calculus, ureteral: Code(s): N20.1 - Calculus of ureter Status: Acute Assessment and Plan: CT abdomen/pelvis showed obstructing distal left ureteral stone measuring 7 mm with moderate hydroureteronephrosis Status post cystoscopy, left retrograde pyelogram, left ureteral stent insertion Appreciate urology consultation Continue Flomax Continue ciprofloxacin Analgesics available as needed (2) Chest pain at rest: Code(s): R07.9 - Chest pain, unspecified Status: Acute Assessment and Plan: 04/08/2022 patient had episode of midsternal chest pain Troponin negative initially with increase to 0.77 and downward trend to 0.034 EKG with no acute changes CXR with no acute findings Chest pain resolved Appreciate cardiology consultation Started on aspirin 81 mg daily. Continue statin Echocardiogram pending (3) Elevated troponin I level: Code(s): R77.8 - Other specified abnormalities of plasma proteins Status: Acute Assessment and Plan: See above (4) Elevated serum creatinine: Code(s): R79.89 - Other specified abnormal findings of blood chemistry Status: Acute Assessment and Plan: Creatinine 1.2 are presentation Previous labs from 1 year ago showed creatinine 1.1. Unclear if this is patient's baseline or related to hydronephrosis Monitor renal function Subjective Date/time seen: 04/09/22 13:57 Interval history: Date of service: 04/09/2022 Ani Ortiz is a 72-year-old female with a history of CAD, COPD, anxiety, depression, and kidney stones who is seen in follow-up for left ureteral stone. She is feeling well at this time. Tolerated stent placement without difficulty. No pain at this time. No issues urinating. Reports good urinary flow. No dysuria or hematuria. No back or flank pain. No nausea or vomiting. No dizziness or lightheadedness. She has no chest pain today. No palpitations. No shortness of breath or cough. Tolerating her diet. Review of Systems Review of Systems: All systems reviewed & are unremarkable except as noted in HPI and below Exam Narrative: General: Thin well-appearing 72-year-old female, sitting up in bed, comfortable, NARD Neuro: awake, alert and oriented x4, speech clear, no focal neuro deficits noted HEENMT: normocephalic, atraumatic, EOMI, sclerae anicteric Respiratory: clear to auscultation bilaterally, nonlabored breathing Cardio: regular rate, regular rhythm with S1-S2 Abdomen: nondistended, normoactive bowel sounds, soft, nontender to palpation : mildly tender to palpation in left suprapubic region, no CVA tenderness Extremities: no edema, erythema, or tenderness to palpation, DP pulses 2+ bilaterally Skin: no rashes or lesions, warm and dry Psych: appropriate mood and affect, judgment and insight intact Objective Data Vital Signs Vital Signs: Vital Signs - 24 hr 04/08/22 16:44 04/08/22 17:46 04/08/22 17:47 Temperature 97.7 F Pulse Rate 80 82 84 Respiratory Rate 16 14 16 Blood Pressure 170/75 H 170/81 H Pulse Oximetry 98 94 96 Oxygen Delivery Oxygen Flow Rate 04/08/22 18:00 04/08/22 18:01 04/08/22 18:15 Temperature Pulse Rate 81 80 81 Respiratory Rate 11 L 12 15 Blood Pressure 156/71 H Pulse Oximetry 91 90 94 Oxygen Delivery Oxygen Flow Rate 04/08/22 18:16 04/08/22 18:30 04/08/22 18:31 Temperature Pulse Rate 83 86 86 Respiratory Rate 17 17 15 Blood Pressure 158/72 H 143/69 H Pulse Oximetry 94 95 93 Oxygen Delivery Oxygen Flow Rate 04/08/22 18:52 04/08/22 18:32 04/08/22 19:10 Temperature Pulse Rate 86 86 Respiratory Rate 13 16 Blood Pressure 146/69 H Pulse Oximetry 98 90 99 Oxygen Delivery Oxygen Flow Rate 2 04/08/22 20:35 04/08/22 21:00 04/09/22 01:23 Temperature 97.6 F Pulse Rate 88 83 Respiratory Rate 18 Blood Pressure 165/80 H Pulse
[2022-04-09] MEDS: ZOLPIDEM TARTRATE (*CRX) 5 MG TABLET 10 MG BY MOUTH (20:58)
[2022-04-10] VITALS (9 sets, daily range): BP systolic 109–137; BP diastolic 48–65; PULSE 65–84; RESP 16–18; TEMP 36.6–37.3; O2SAT 96–97
--- NOTE | 2022-04-10 | ECHO_ITS ---
Patient Info Name: Ani Ortiz Age: 72 years : 1950 Gender: Female Ht: 62 in Wt: 143 lbs BSA: 1.70 m2 HR: 81 bpm BP: 113 / 48 mmHg Heart Rhythm: Sinus Rhythm Technical Quality: Good Exam Date: 04/10/2022 8:25 AM Exam Location: [facility] Patient Status: Outpatient Admit Date: 04/08/2022 Staff Ordering Physician: Sarahi Stahl PA-C Museum Registrar: Justyna Livingston RDCS Attending Provider: Sarahi Stahl PA-C Referring Physician: Favio MEJIA; Exam Type: CA echo doppler color flow Study Info Indications R07.9 - Chest pain, unspecified Complete two-dimensional, color flow and Doppler transthoracic echocardiogram is performed. Summary 1. Complete two-dimensional, color flow and Doppler transthoracic echocardiogram is performed. 2. Left ventricular chamber dimension is normal. 3. Left ventricular systolic function is normal, estimated at 65-70%. 4. There is mildly increased left ventricular wall thickness. 5. The left ventricular diastolic function is grade I diastolic dysfunction. 6. There is mild mitral valve regurgitation. 7. There is trace tricuspid valve regurgitation. 8. No pulmonary hypertension, estimated pulmonary arterial systolic pressure is 34 mmHg. Left Ventricle Left ventricular chamber dimension is normal. Left ventricular systolic function is normal, estimated at 65-70%. There is mildly increased left ventricular wall thickness. The left ventricular diastolic function is grade I diastolic dysfunction. Right Ventricle Right ventricular chamber dimension is normal. Right ventricular systolic function is normal. Left Atria Left atrial chamber dimension is normal. Right Atria Right atrial chamber dimension is normal. Aortic Valve The aortic valve is not well visualized. There is no aortic valve stenosis. There is no aortic valve regurgitation. Pulmonic Valve The pulmonic valve is not well visualized. Mitral Valve The mitral valve has normal leaflets. There is mild mitral valve regurgitation. The mitral valve annulus is mildly calcified. Tricuspid Valve The tricuspid valve leaflets are normal. There is trace tricuspid valve regurgitation. No pulmonary hypertension, estimated pulmonary arterial systolic pressure is 34 mmHg. Pericardium/Pleural The pericardium appears normal. There is no pericardial effusion. Inferior Vena Cava Normal inferior vena cava with <50% collapse upon inspiration consistent with elevated right atrial pressure, 10 mmHg. Aorta The aortic root size at the sinus of Valsalva is normal. There is mild aortic atherosclerosis. Left Ventricular Outflow Tract Name Value Normal LVOT 2D LVOT Diameter 2.0 cm LVOT Doppler LVOT Peak Gradient 3 mmHg LVOT Mean Gradient 2 mmHg LVOT VTI 21 cm LVOT VTI/AV VTI Ratio 0.9 LVOT Stroke Volume 70 ml LVOT CO 13.5 l/min LVOT CI 8.1 l/min/m2 Pulmoni
[2022-04-10 05:03] LABS: Hematocrit 33.6 % (37.0-47.0); Hemoglobin 10.5 g/dL (12.0-15.0); Mean Corpuscular HGB Conc 31.3 g/dl (32-36); Mean Platelet Volume 10.4 fl (7.4-10.4); Platelet Count Result 170 k/mm3 (150-375); Red Cell Distribution Width 12.7 % (11.5-14.5); White Blood Count 5.3 K/mm3 (4.5-10.0)
[2022-04-10 05:13] LABS: Anion Gap 3 mmol/L (8-16); Blood Urea Nitrogen 11 mg/dL (7-17); Calcium 8.3 mg/dL (8.4-10.2); Carbon Dioxide 27 mmol/L (22-30); Chloride 113 mmol/L (98-107); Estimated CRCL calculation 38 ml/min; Estimated Glomerular Filt Rate 49; Glucose 91 mg/dL (65-110); Potassium 3.8 mmol/L (3.4-5.0); Sodium 143 mmol/L (137-145)
[2022-04-10] MEDS: buPROPion HCL XL (24 HR) 150 MG TABCR 300 MG PO (09:00)
[2022-04-10] MEDS: CIPROFLOXACIN 400 MG/D5W 200ML 200 ML 200 MG IVPB (09:00)
[2022-04-10] MEDS: ROSUVASTATIN 10 MG TABLET 40 MG BY MOUTH (09:01)
[2022-04-10] MEDS: ASPIRIN 81 MG ENTERIC TABLET PO (09:02)
[2022-04-10] MEDS: TAMSULOSIN HCL 0.4 MG CAPSULE PO (09:02)
[2022-04-10] MEDS: FLUoxetine HCL 20 MG CAPSULE 60 MG BY MOUTH (09:02)
[2022-04-10] MEDS: ONDANSETRON INJ 4 MG/2 ML VIAL IV PUSH (11:54)
--- NOTE | 2022-04-10 13:35 | PM.PNCARD ---
Progress Note: A&P Assessment and Plan (1) Elevated troponin I level: Code(s): R77.8 - Other specified abnormalities of plasma proteins Status: Acute Assessment and Plan: Self-limited episode of chest pressure in the setting of severe abdominal pain related to obstructing ureteral calculus with significant BP elevation occurring at rest lasting no more than 5-10 minutes with subsequent mild troponin elevation without acute ischemic EKG changes. Most likely type 2 infarct, however, given evidence of significant coronary arterial calcification on CT and wrist fractures including dyslipidemia and history of tobacco abuse ischemic evaluation is warranted. - Aspirin 81 mg daily - Continue statin therapy. - 2D echocardiogram personally reviewed no wall motion abnormalities, normal LV systolic function. - DVT prophylaxis -advise follow-up with Dr. Lee in 2-4 weeks. Set pt up for TM nuclear stress test or stress echo for further evaluation in our office as outpatient. Patient stable for discharge home today per hospitalist service. Discussed with patient at length. All questions answered to her satisfaction. She is in agreement with the plan of care. (2) Chest pain at rest: Code(s): R07.9 - Chest pain, unspecified Status: Acute Assessment and Plan: No recurrence. (3) Coronary artery calcification seen on CT scan: Code(s): I25.10 - Atherosclerotic heart disease of [place] coronary artery without angina pectoris Status: Acute Assessment and Plan: As above. Suggestive coronary artery disease luminal obstruction severity unknown. Previously patient has been completely asymptomatic without any limitations or exertional chest pain prior to admission. And medical therapy. (4) Mixed hyperlipidemia: Code(s): E78.2 - Mixed hyperlipidemia Status: Acute Assessment and Plan: Continue rosuvastatin goal LDL less than 70. (5) History of tobacco abuse: Code(s): Z87.891 - Personal history of nicotine dependence Status: Acute Assessment and Plan: Patient remains smoke-free. Encouraged to continue in this manner. (6) Calculus, ureteral: Code(s): N20.1 - Calculus of ureter Status: Acute Assessment and Plan: Per Urology. Doing well and asymptomatic status post cystoscopy and left ureteral stent insertion with moderate hydronephrosis above the level of the stone on the left. Subjective Date/time seen: Date of service: 04/10/22 13:35 Follow-up for elevated troponin chest pain Patient feels very well. Ambulating without any difficulty. No recurrent chest pain, shortness of breath, dizziness or palpitations. Telemetry unremarkable. 2D echo obtained this morning. Review of Systems Review of Systems: All systems reviewed & are unremarkable except as noted in HPI and below Constitutional: Constitutional: Reports as per HPI and Reports no additional constitutional complaints Eyes: Eyes: Reports as per HPI and Reports no additional eye complaints ENT: Reports system reviewed and no additional complaints, except as documented and Reports as per HPI Cardiovascular: Cardiovascular: Reports as per HPI and Reports no additional cardiovascular complaints Respiratory: Respiratory: Reports as per HPI and Reports no additional respiratory complaints Gastrointestinal: Gastrointestinal: Reports as per HPI and Reports no additional gastrointestinal complaints Genitourinary: Genitourinary: Reports as per HPI Musculoskeletal: Musculoskeletal: Reports no additional musculoskeletal complaints and Reports as per HPI Integumentary/Breasts: Skin/Breast: Reports system reviewed and no additional complaints, except as docu and Reports as per HPI Neurologic: Reports system reviewed and no additional complaints, except as documented and Reports as per HPI Psychiatric: Psychiatric: Reports no additional psychiatric complaints and Reports as per HPI End
--- NOTE | 2022-04-10 13:48 | WPDUROPN2 ---
Progress Note: A&P Assessment and Plan (1) Calculus, ureteral: Code(s): N20.1 - Calculus of ureter Status: Acute (2) Elevated troponin I level: Code(s): R77.8 - Other specified abnormalities of plasma proteins Status: Acute Plan 72-year-old female with a left 7mm obstructing ureteral stone.? Patient also with nonobstructing left renal stone 10mm. s/p Left ureteral stent insertion April 09, 2022 - stopped Flomax. Started oxybutynin 5mg p.o. t.i.d. as needed for bladder spasm - okay to be discharged home from Urology perspective, when cleared by Cardiology & hospitalist service - plan outpatient definitive stone management. Likely proceed with left ureteroscopy in the next 1 to 2 weeks Subjective Subjective Date/Time Seen: 04/10/22 13:48 No overnight events. Patient feeling well. She does have some stent irritation Exam Narrative: awake, alert, oriented. Breathing unlabored. Abdomen soft. Objective Data Vital Signs Vital Signs: Vital Signs - 24 hr 04/09/22 17:53 04/09/22 16:00 04/09/22 19:24 Temperature 36.1 C L 36.1 C L Pulse Rate 70 73 72 Respiratory Rate 16 17 Blood Pressure 101/48 L 131/54 L Pulse Oximetry 96 95 Oxygen Delivery 04/09/22 23:54 04/09/22 20:00 04/10/22 00:00 Temperature 37.2 C Pulse Rate 70 71 68 Respiratory Rate 16 Blood Pressure 107/50 L Pulse Oximetry 95 Oxygen Delivery 04/10/22 03:52 04/10/22 04:00 04/10/22 09:02 Temperature 36.6 C Pulse Rate 65 65 Respiratory Rate 17 18 Blood Pressure 113/48 L Pulse Oximetry 97 97 Oxygen Delivery Room Air 04/10/22 09:40 04/10/22 08:00 04/10/22 10:49 Temperature 37.3 C Pulse Rate 74 72 Respiratory Rate 16 Blood Pressure 137/65 Pulse Oximetry 97 96 Oxygen Delivery Room Air 04/10/22 12:01 Temperature Pulse Rate 84 Respiratory Rate Blood Pressure Pulse Oximetry Oxygen Delivery Intake/Output Intake/Output: Intake & Output 04/07/22 04/08/22 04/09/22 04/10/22 23:59 23:59 23:59 23:59 Intake Total 1200 2680 840 Output Total 100 2700 600 Balance 1100 -20 240 Meds/Results Medications: Active Medications Generic Name Dose Route Start Last Admin Trade Name Freq PRN Reason Stop Dose Admin Albuterol 2 puff 04/08/22 21:40 Albuterol Sulfate (*Sp) Aerosol 1 Puff INHALATION Q4H PRN Dyspnea Aspirin 81 mg 04/09/22 09:00 04/10/22 09:02 Aspirin 81 Mg Enteric Tablet PO 81 mg QAM JANELLE Administration Bupropion HCl 300 mg 04/09/22 09:00 04/10/22 09:00 Bupropion Hcl Xl (24 Hr) 150 Mg Tabcr PO 300 mg DAILY JANELLE Administration Buspirone HCl 15 mg 04/08/22 21:40 Buspirone Hcl 5 Mg Tablet BY MOUTH TID PRN Anxiety Clonazepam 1 mg 04/08/22 21:40 Clonazepam (*Crx) 0.5 Mg Tablet BY MOUTH BID PRN Anxiety Fluoxetine HCl 60 mg 04/09/22 09:00 04/10/22 09:02 Fluoxetine Hcl 20 Mg Capsule BY MOUTH 60 mg DAILY JANELLE Administration Ciprofloxacin/Dextrose 200 mls @ 200 mls/hr 04/08/22 21:00 04/10/22 10:00 Cipro 400 Mg/D5w 200 Ml IVPB Infused Q12H JANELLE Infusion Ketorolac Tromethamine 30 mg 04/08/22 22:35 04/09/22 19:41 Ketorolac 30 Mg/Ml Vial (*Bkc) IV PUSH 30 mg Q6H PRN Administration Pain Rated 4-6 Ondansetron HCl 4 mg 04/08/22 18:47 04/10/22 11:54 Ondansetron Inj 4 Mg/2 Ml Vial IV PUSH 4 mg Q4H PRN Administration Nausea Perflutren Lipid Microsphere 0 ml 04/09/22 07:04 Perflutren Lipid Microspheres 1.5 Ml Vial Diluted To 10 Ml Total Volume IV PUSH ONCE PRN adequate visualization Protocol Rosuvastatin Calcium 40 mg 04/09/22 09:00 04/10/22 09:01 Rosuvastatin 10 Mg Tablet BY MOUTH 40 mg DAILY JANELLE Administration Tamsulosin HCl 0.4 mg 04/09/22 09:00 04/10/22 09:02 Tamsulosin Hcl 0.4 Mg Capsule PO 0.4 mg QAM JANELLE Administration Zolpidem Tartrate 10 mg 04/09/22 21:00 04/09/22 20:58 Zolpidem Tartrat
--- NOTE | 2022-04-10 14:27 | PM.DS ---
DS: Admitting Diagnosis Discharge Date 04/10/2022 Admitting Diagnosis Left ureteral stone DS: Discharge Diagnosis Discharge Diagnosis (1) Calculus, ureteral: Code(s): N20.1 - Calculus of ureter Status: Acute Assessment and Plan: CT abdomen/pelvis showed obstructing distal left ureteral stone measuring 7 mm with moderate hydroureteronephrosis Managed by Urology Status post cystoscopy, left retrograde pyelogram, left ureteral stent insertion on 04/09/[address] Fregoos Oxybutynin as needed for bladder spasm No indication for antibiotics Follow-up as an outpatient for definitive stone management (2) Chest pain at rest: Code(s): R07.9 - Chest pain, unspecified Status: Acute Assessment and Plan: 04/08/2022 patient had episode of nonradiating midsternal chest pain lasting 5-10 minutes Troponin negative initially with increase to 0.77 and downward trend to 0.034 EKG with no acute changes CXR with no acute findings Echo with normal systolic function, no wall motion abnormalities Chest pain resolved She was seen in consultation by Cardiology Initiate aspirin 81 mg daily Follow-up with Dr. Lee for stress test (3) Elevated troponin I level: Code(s): R77.8 - Other specified abnormalities of plasma proteins Status: Acute Assessment and Plan: See above (4) Elevated serum creatinine: Code(s): R79.89 - Other specified abnormal findings of blood chemistry Status: Acute Assessment and Plan: Creatinine 1.2 are presentation Previous labs from 1 year ago showed creatinine 1.1. Renal function remained consistent with baseline DS: Summary Hospital Course Hospital Course: Date of admission: 04/08/2022 Date of discharge: 04/10/2022 Ani Ortiz is a 72-year-old female with a history of CAD, COPD, anxiety, depression, and kidney stones presented to the emergency department on hematuria and left lower quadrant and back pain. While in the ED, she had an episode midsternal nonradiating chest pain lasting 5-10 minutes. Initial workup revealed troponin <0.012 and evidence of obstructing distal left ureteral stone. She was admitted to the hospitalist service for further evaluation management was seen in consultation by Urology and Cardiology. Please see above for further details. Chest pain resolved. Patient tolerated stent placement and subsequently urinary symptoms and pain resolved. She was feeling back to her usual state of health and was eager for discharge home. Given overall improvement, she was determined to no longer require inpatient care. Discussed case with Cardiology and Urology and all in agreement with plans for discharge. She will schedule outpatient follow-up. Discussed with the patient worrisome signs and symptoms for which to return and she was educated on her medications. She was discharged in hemodynamically stable condition on 04/10/2022. Status at Discharge Functional status at discharge: independent ambulation Overall status at discharge: patient is back to baseline Time Spent with Patient Time attestation: Total time spent providing and/or coordinating discharge services: 40 minutes Time spent: Greater than 30 minutes Exam Narrative: General: Thin well-appearing 72-year-old female, sitting up in bed, comfortable, NARD Neuro: awake, alert and oriented x4, speech clear, no focal neuro deficits noted HEENMT: normocephalic, atraumatic, EOMI, sclerae anicteric Respiratory: clear to auscultation bilaterally, nonlabored breathing Cardio: regular rate, regular rhythm with S1-S2 Abdomen: nondistended, normoactive bowel sounds, soft, nontender to palpation : no CVA tenderness Extremities: no edema, erythema, or tenderness to palpation, DP pulses 2+ bilaterally Skin: no rashes or lesions, warm and dry Psych: appropriate mood and affect, judgment and insight intact DS: Data Data Completed and Pen
== END 2022-04-10 15:10 | disposition home or self-care (01) ==
LOC: ANHED 18:53 → ANH2MED 19:23
PROVIDERS: Internal Medicine Cardiovascular Disease; Physician Assistant; Student in an Organized Health Care Education/Training Program; Urology; Admitting Provider Family Medicine; Emergency Provider Emergency Medicine; PCP Physician Assistant; Visit Provider Internal Medicine
PROC: (CPT 52352; principal; 2022-04-09 09:00)
DX: N13.2 Hydronephrosis with renal and ureteral calculous obstruction (principal); R07.9 Chest pain, unspecified; R77.8 Other specified abnormalities of plasma proteins; R79.89 Other specified abnormal findings of blood chemistry; I25.10 Atherosclerotic heart disease of native coronary artery without angina pectoris; E78.2 Mixed hyperlipidemia; J44.9 Chronic obstructive pulmonary disease, unspecified; F41.8 Other specified anxiety disorders; Z79.51 Long term (current) use of inhaled steroids; Z87.891 Personal history of nicotine dependence
CPT/HCPCS: 52332; 36415; 71045; 74018; 74176; 74420; 80048; 80053; 81001; 83690; 84484; 85025; 85027; 93005; 93306; 96361; 96365; 96366; 96372; 96374; 96375; 96376; 99285; A9270; C1769; C1887; C2617; G0378; J0131; J0744; J1170; J1885; J2270; J2405; J2704; J7030; J7120; Q9966

== ENCOUNTER 2022-04-14 02:04 | Day surgery (SDC) | payer MEDICARE, SELFPAY ==
--- NOTE | 2022-04-11 15:36 | PC.NURSE ---
Report to the Outpatient Waiting Room, entrance under the green pavilion located off [facility], at time 0930 on date _04/14/22 . OR Time: _1130 . - You and your visitor will be asked a series of questions to screen for COVID 19 for your protection. - Only one visitor is allowed at this time. - The patient visitor is requested to leave or wait in car when not with patient. - A mask is required within the hospital. Patients may have clear liquids (water, carbonated beverages, clear teas, apple juice) until 3 hours prior to surgery with a maximum of 20 ounces. - No food from midnight until time of surgery - Infants may have breast milk until 4 hours before surgery, infant formula 6 hours prior to surgery. - Children will be allowed to drink immediately following surgery. If applicable, please bring a bottle or sippy cup to assist with drinking. Juice, water, soda, and popsicles are readily available. For infants on formula, please bring formula the day of surgery. Pacifiers are allowed. Take the following medications with a SIP of water the morning of surgery: __BUPROPION,FLUOXETINE Medications to discontinue per physician ASPIRIN PER DR HOBBS, ALL VITAMINS AND SUPPLEMENTS 3 DAYS PRE OP Date to take last dose 04/10/22 Please no make-up, nail israeli, hairspray, perfume, deodorant, or body powder the day of surgery. No jewelry (including any body piercings) or valuables the day of surgery, leave them at home. Please take a shower or bath the night before, or the morning of, surgery with an antibacterial soap. Wear comfortable, loose fitting clothing. Children are encouraged to wear pajamas. - Jewelry must be removed prior to entering the operating room. Rings and piercings that are not removed may be cut off. - The hospital will not accept responsibility for valuables. - Please leave all valuables, including medications, at home the day of surgery. If you are going home after surgery, a licensed production truck driver must drive you home. - NO public transportation without another adult. - We recommend that an adult stay with you for 24 hours following discharge. - We also recommend that you do not drive, make important decision, drink alcoholic beverages, or take any drugs that were not prescribed by your health care provider for at least 24 hours after your discharge time. For Pediatric surgeries, we recommend two adults accompany the child home (only one inside the building at this time). Follow any additional instructions given to you from your surgeon. If you or anyone in your household have experienced Covid symptoms in the past week, please notify your surgeon or the nurse liaison at the phone number below for possible testing. Telephone instructions given to _PATIENT and asked if any additional questions and then verbalized understanding. Patient advised to call surgeon office or pre surgery nurse liaison [phone] if any additional questions.
[2022-04-11 15:43] VITALS: BMI 26.5
--- NOTE | 2022-04-13 10:31 | PM.HPGS ---
History of Present Illness History of Present Illness Consent: Risks, benefits, and alternatives have been discussed and questions answered. Patient agrees to proceed with procedure. Chief complaint: left ureteral stone Narrative: Ani Ortiz is a 72 year old female recently admitted with a painful obstructing left mid ureteral calculus. In addition she has a 9-10 mm left renal calculus. Dr. Lemus attempted ureteroscopy with ureteral stone extraction but was unable to reach the level of this stone. He placed ureteral stent and she returns now for definitive intervention for both her ureteral and renal calculus. She is aware the risk including, but not limited to, adverse cardiopulmonary events, ureteral injury, residual stone fragments that may require additional procedures, perinephric hematoma and need a replace her ureteral stent Review of Systems Cardiovascular: Cardiovascular: Denies chest pain, Denies lightheadedness, Denies palpitations and Denies dyspnea Respiratory: Respiratory: Denies dyspnea Gastrointestinal: Gastrointestinal: Denies diarrhea, Denies nausea and Denies vomiting Genitourinary: Genitourinary: Denies hematuria and Denies dysuria Endocrine: Endocrine: Denies palpitations [facility] Past Medical History Medical History Anxiety CAD (coronary artery disease) COPD (chronic obstructive pulmonary disease) Depression Kidney stones Surgical History Surgical History H/O: hysterectomy Family History Family History Mother Hypercholesteremia Father Glioblastoma Social History Social History Smoking packs per day: 0.5 Smoking cigarettes per day: 10.0 Years smoked: 15 Smoking pack-years: 7.50 Smoking status: Former smoker Tobacco type: cigarettes Smoking end date: 11/12/18 Alcohol intake: current Drinks per week: 1 Substance use: never Living arrangements: with family Spiritual care concerns: No Meds Home Medications and Allergies Home Medications Medication Instructions Recorded Confirmed Type albuterol sulfate 90 mcg/actuation 2 puff inhalation Q4-5H PRN Dyspnea 04/08/22 04/11/22 History aerosol inhaler bupropion HCl 300 mg 24 hr tablet, 300 tablet PO DAILY 04/08/22 04/11/22 History extended release buspirone 15 mg tablet 15 mg PO TID PRN Anxiety 04/08/22 04/11/22 History clonazepam 1 mg tablet 1 tablet PO BID PRN Anxiety 04/08/22 04/11/22 History fluoxetine 20 mg capsule 20 cap PO DAILY 04/08/22 04/11/22 History fluoxetine 40 mg capsule 40 cap PO DAILY 04/08/22 04/11/22 History rosuvastatin 40 mg tablet 40 tablet PO DAILY 04/08/22 04/11/22 History zolpidem 10 mg tablet 10 tablet PO HS 04/08/22 04/11/22 History aspirin 81 mg tablet,delayed 81 mg PO QAM #30 tabs 04/10/22 04/11/22 Rx release oxybutynin chloride 5 mg tablet 5 mg PO TID PRN bladder irritation 04/10/22 04/11/22 Rx #20 tabs Allergies Allergy/AdvReac Type Severity Reaction Status Date / Time cephalexin [From Keflex] Allergy Rash Verified 04/11/22 15:18 erythromycin base Allergy Rash Verified 04/11/22 15:19 Penicillins Allergy TONGUE Verified 04/11/22 15:18 SWELLING Tetracyclines Allergy Rash Verified 04/11/22 15:18 Exam Const: General: no acute distress Resp: Effort & Inspection: normal respiratory effort GI: Inspection: non-distended GI Palp: No abdominal tenderness and No Guarding due to palpation present (GI) Auscultation: normal bowel sounds Assessment and Plan Assessment and plan (1) Left ureteral calculus: Code(s): N20.1 - Calculus of ureter Status: Acute (2) Left renal stone: Code(s): N20.0 - Calculus of kidney Status: Acute Assessment and Plan: cystoscopy with left ureteroscopy, la
--- NOTE | ~2022-04-14 | XR_ITS ---
EXAMINATION: XR abdomen/kub 1V DATE: 04/14/2022 09:21 INDICATION: Left ureteral stone. TECHNIQUE: A supine view of the abdomen on 2 radiographs was obtained. COMPARISON: CT abdomen and pelvis 04/08/2022 FINDINGS: There are no dilated loops of bowel. There are phleboliths in the pelvis. Surgical clips in the right upper quadrant are likely from cholecystectomy. There is an 11 mm stone in left kidney. Th ere is a left internal ureteral stent in expected position. There is a 7 mm stone in distal left uret er. IMPRESSION: 1. 7 mm stone in distal left ureter with left internal ureteral stent in expected position. 2. 11 mm left kidney stone. Reviewed, dictated and finalized at location A. IMPRESSION: 1. 7 mm stone in distal left ureter with left internal ureteral stent in expect ed position. 2. 11 mm left kidney stone.
--- NOTE | 2022-04-14 06:19 | WPDHPUPDATE1 ---
History and Physical Update Update Date/Time: 04/14/22 06:19 History and Physical has been reviewed, including an updated exam of the patient. There are NO changes in the patient's condition. Risks, benefits, and alternatives have been discussed and questions answered. Patient agrees to proceed with procedure.
[2022-04-14 09:29] VITALS: BP 134/62; PULSE 73; RESP 20; TEMP 36.2; O2SAT 99
--- NOTE | 2022-04-14 10:13 | P.PNAN_ITS ---
Anes - Eval Final PreProcedure Day of Procedure 04/14/22 10:13 Patient weight: overweight Heart: regular rate and rhythm Lungs: clear to auscultation Airway: Mallampati scale class II Neurological: alert and oriented Last oral intake: >/= 8 hours ASA classification: III Emergent: no Anesthetic plan: proceed Anesthesia type and monitoring: general LMA and standard monitoring Results Review: All pre-operative results and documents have been reviewed as part of the pre- operative evaluation. Informed Consent: The patient's anesthetic plan and its attendant risks and benefits were discussed with the patient/family/POA. Questions were solicited and answers provided to the satisfaction of the patient/family/POA.
[2022-04-14] MEDS: LACTATED RINGERS 1,000 ML 30 ML IV CONT ×2 (10:20→12:56)
[2022-04-14] MEDS: levoFLOXacin 500 MG/D5W 100 ML 500 MG/100 ML BAG 100 MG IVPB (11:34)
--- NOTE | 2022-04-14 12:19 | W.PM.PROC2 ---
Procedure Note - Detailed Date of Procedure 04/14/22 Pre-op Diagnosis Left ureteral and renal calculi Post-op Diagnosis Same Procedure Performed Cystoscopy, left ureteral stent removal, left ureteroscopy with laser lithotripsy and stone extraction, left ureteral stent placement, left ESWL Surgeon Philip Naylor MD Description of Procedure patient is brought the op sure she has prepped draped in routine sterile fashion while in a frog-leg position after the uneventful induction of a general anesthetic. Nineteen F rigid cystoscope was placed in her bladder in the indwelling stent is brought to the external urethral meatus. 0.035 in glidewire was advanced left renal pelvis. Ureteroscopy was undertaken with a short tapered semi-rigid ureteral scope. She has a large irregularly shaped stone in her left mid ureter that will be too large for extraction without laser lithotripsy. Using the 273 holmium laser micron I fractured the stone into multiple small pieces using a dusting mode. Any sizable fragments were extracted with a 1.9 F disposable stone basket. A 4.8 F 28 cm ureteral stent was reposition with proximal coil in renal pelvis and distal coil in the bladder. The patient was repositioned in the supine position and extra corporal shockwave lithotripsy was undertaken using the [place]ier a holmium Lithotripter at a power setting of 4. Two thousand five hundred shocks were delivered. Patient tolerated these procedures well was taken recovery room in good condition Estimated Blood Loss 0 Drains Yes Packing No Pathology Yes Complications No immediate complications
[2022-04-14] MEDS: KETOROLAC 30 MG/ML VIAL (*BKC) IV PUSH (12:46)
[2022-04-14 13:00] VITALS: BP 110/55; PULSE 85; RESP 11; TEMP 36.1; O2SAT 95
[2022-04-14 13:19] VITALS: BP 136/58; PULSE 81; RESP 22; O2SAT 98
[2022-04-14 13:35] VITALS: BP 112/63; PULSE 83; RESP 22; O2SAT 92
[2022-04-14 13:43] VITALS: BP 114/68; PULSE 81; RESP 20
[2022-04-14 14:15] VITALS: BP 127/65; PULSE 80; RESP 20
== END 2022-04-14 14:32 | disposition home or self-care (01) ==
PROVIDERS: PCP Physician Assistant; Visit Provider Urology
PROC: (CPT 52352; principal; 2022-04-14 11:30)
PROC: (CPT 50590; 2022-04-14 11:30)
DX: N20.2 Calculus of kidney with calculus of ureter (principal); I25.10 Atherosclerotic heart disease of native coronary artery without angina pectoris; J44.9 Chronic obstructive pulmonary disease, unspecified; F41.8 Other specified anxiety disorders; Z87.891 Personal history of nicotine dependence; Z79.51 Long term (current) use of inhaled steroids; Z79.82 Long term (current) use of aspirin
CPT/HCPCS: 50590; 52332; 74018; 82365; 88300; C1758; C1769; C1887; C2617; J1100; J1885; J1956; J2370; J2405; J2704; J3010; J7120

== ENCOUNTER 2022-04-19 11:38 | Outpatient (CLI) | payer MEDICARE, SELFPAY ==
--- NOTE | ~2022-04-19 | XR_ITS ---
XR abdomen/kub 1V 04/19/2022 11:57 Indication: Left ureteral stone Procedure: KUB Comparison: 04/14/2022 Findings: Left internal ureteral stent in expected position. There are multiple distal left ureteral stones proximal to the expected location of the UVJ. No calcifications are seen overlying the kidneys to suggest renal stones. There are cholecystectomy clips. Moderate colonic fecal loading. Impression: 1: Distal left ureteral stones with left internal ureteral stent in expected position. Reviewed, dictated and finalized at location B. Impression: 1: Distal left ureteral stones with left internal ureteral stent in expected po sition.
== END 2022-04-19 11:39 | disposition home or self-care (01) ==
PROVIDERS: PCP Physician Assistant; Visit Provider Urology
DX: N20.1 Calculus of ureter (principal); Z96.0 Presence of urogenital implants
CPT/HCPCS: 74018

== ENCOUNTER 2022-05-23 13:14 | Outpatient (CLI) | payer MEDICARE, SELFPAY ==
--- NOTE | ~2022-05-23 | XR_ITS ---
XR abdomen/kub 1V 05/23/2022 13:43 Indication: Renal stones Procedure: KUB Comparison: 04/19/2022 Findings: Bowel gas pattern is nonobstructive. There are cholecystectomy clips. There are pelvic phle boliths. The kidneys are obscured by bowel content limiting evaluation for renal stones. Moderate lum bar spondylosis. No acute osseous abnormality. Impression: 1: No acute abdominal abnormality. Reviewed, dictated and finalized at location A. Impression: 1: No acute abdominal abnormality.
== END 2022-05-23 13:15 | disposition home or self-care (01) ==
PROVIDERS: PCP Physician Assistant; Visit Provider Urology
DX: N20.1 Calculus of ureter (principal)
CPT/HCPCS: 74018

== ENCOUNTER 2022-09-05 01:00 | Outpatient (NON) | payer MEDICARE, SELFPAY | END 2022-09-05 01:01 | disposition home or self-care (01) | PROVIDERS: PCP Physician Assistant; Visit Provider Nurse Practitioner | DX: L82.1 Other seborrheic keratosis (principal) | CPT/HCPCS: 88305 ==

== ENCOUNTER 2023-03-05 15:21 | Outpatient (CLI) | payer MEDICARE, SELFPAY ==
--- NOTE | ~2023-03-05 | XR_ITS ---
EXAMINATION: XR abdomen/kub 1V INDICATION: Calcium kidney stone TECHNIQUE: Supine views of the abdomen were obtained on 2 radiographs. COMPARISON: 05/23/[address] of the same date FINDINGS: There are phleboliths of the pelvis. A new 2 mm calcification is seen in the left pelvis at the expected location of the ureterovesicular junction corresponding to the stone identified on the comparison CT. The bowel gas pattern is normal. A moderate volume of colonic stool is present. There is mild osteoarthritis of the hips. Cholecystectomy clips are noted. IMPRESSION: 1. 2 mm stone at the expected location of the left ureterovesicular junction corresponding to the sto ne seen on CT. Reviewed, dictated and finalized at location L. IMPRESSION: 1. 2 mm stone at the expected location of the left ureterovesicular junction co rresponding to the stone seen on CT.
--- NOTE | ~2023-03-05 | CT_ITS ---
EXAMINATION: CT abdomen pelvis wo con DATE: 03/05/2023 15:49 INDICATION: Calcium kidney stone. TECHNIQUE: Computed tomography (CT) of the abdomen and pelvis was performed without intravenous contr ast. Automated exposure control and iterative reconstruction technique were employed. The dose-length product was 195.82 mGy-cm. COMPARISON: CT abdomen and pelvis 04/08/2022 FINDINGS: The visualized portions of the lung bases demonstrate mild atelectasis. No pleural effusion . The heart size is normal. There are coronary artery calcifications. No pericardial effusion. There is a small sliding hiatal hernia. The liver is normal. There are are changes of cholecystectomy. The spleen, pancreas, and adrenal glands are normal. There are cysts in the kidneys measuring up to 4.9 c m on the left. There is a 3 mm stone at left ureterovesicular junction. There is diverticulosis of th e colon without evidence of diverticulitis. The appendix is normal. There are no pathologically enlar ged lymph nodes. There is no free intraperitoneal fluid. There is calcified atherosclerosis of the ao rta and many of the other arteries. There is mild thoracic and lumbar spondylosis. IMPRESSION: 1. 3 mm stone at left ureterovesicular junction. No hydronephrosis. Reviewed, dictated and finalized at location A.
== END 2023-03-05 15:22 | disposition home or self-care (01) ==
PROVIDERS: PCP Physician Assistant; Visit Provider Urology
DX: N20.1 Calculus of ureter (principal)
CPT/HCPCS: 74018; 74176

== ENCOUNTER 2023-04-20 13:10 | Outpatient (CLI) | payer MEDICARE, SELFPAY ==
--- NOTE | ~2023-04-20 | CT_ITS ---
EXAMINATION: CT lung screening DATE: 04/20/2023 13:40 INDICATION: Personal history nicotine dependence, prior smoker with greater than 40 pack year history TECHNIQUE: Computed tomography (CT) of the chest was performed without intravenous contrast. The dose -length product (DLP) was 72.02 mGy-cm. Automated exposure control and iterative reconstruction techn [employer] were employed. COMPARISON: 03/13/2022 FINDINGS: There is a stable 2 mm nodule of the right upper lobe. The lungs are free of no focal airsp chuy opacities. No pleural effusion or pneumothorax. There is mild dependent atelectasis. A small slid ing hiatal hernia is noted. No pathologically enlarged thoracic lymph nodes are identified. The heart size is normal. There is calcified coronary artery atherosclerosis. Subendocardial fat deposition in the heart suggests prior myocardial infarction. The gallbladder is surgically absent. Cysts of the p artially imaged kidneys measure up to 4.5 cm on the left. IMPRESSION: 1. Lung-RADS category 2: Benign appearance or behavior. Continue annual screening with noncontrast lo w-dose chest CT in 12 months. Reviewed, dictated and finalized at location F. IMPRESSION: 1. Lung-RADS category 2: Benign appearance or behavior. Continue annual screeni ng with noncontrast low-dose chest CT in 12 months.
== END 2023-04-20 13:11 | disposition home or self-care (01) ==
PROVIDERS: PCP Physician Assistant; Visit Provider Physician Assistant
DX: Z12.2 Encounter for screening for malignant neoplasm of respiratory organs (principal); Z87.891 Personal history of nicotine dependence
CPT/HCPCS: 71271

== ENCOUNTER 2023-05-10 11:03 | Outpatient (NON) | payer MEDICARE, SELFPAY | END 2023-05-10 11:04 | disposition home or self-care (01) | LOC: ANHLAB 05-11 11:05 | PROVIDERS: PCP Physician Assistant; Visit Provider Nurse Practitioner | DX: L72.0 Epidermal cyst (principal) | CPT/HCPCS: 88305 ==

== ENCOUNTER 2023-06-18 13:01 | Outpatient (CLI) | payer MEDICARE, SELFPAY ==
--- NOTE | ~2023-06-18 | CT_ITS ---
Non-contrast CT scan of the Abdomen and Pelvis Clinical indication: Left ureteral stone Technique: 2.5 mm axial scans were obtained through the abdomen and pelvis without intravenous or or al contrast. Dose reduction technique was used on this scan by utilizing automated exposure control a nd iterative reconstruction technique. The dose-length product (DLP) was 179.64 mGy-cm. COMPARISON: 03/05/2023 Findings: Images through the lung bases reveal no abnormalities. There is a 2 mm stone at the right UVJ. No hydronephrosis. No other renal or ureteral stones seen. The liver, spleen, pancreas, and adrenals appear normal. Cholecystectomy clips are present. There are atherosclerotic calcifications of the aorta. There is no evidence of bowel obstruction. Images through the pelvis were performed. There is no evidence of ascites or lymphadenopathy. No adne xal mass seen. No ascites. Impression: 2 mm right UVJ stone. No hydronephrosis. Reviewed, dictated and finalized at [facility]. Impression: 2 mm right UVJ stone. No hydronephrosis.
== END 2023-06-18 13:02 | disposition home or self-care (01) ==
PROVIDERS: PCP Physician Assistant; Visit Provider Urology
DX: N20.1 Calculus of ureter (principal)
CPT/HCPCS: 74176

== ENCOUNTER 2023-06-28 08:54 | Outpatient (CLI) | payer MEDICARE, SELFPAY ==
--- NOTE | ~2023-06-28 | MM_ITS ---
EXAMINATION: MM screening [facility] BI w ramses HISTORY: Screening TECHNIQUE: Craniocaudal and mediolateral oblique 3-D tomosynthesis images were obtained and synthetic 2-D images were generated. CAD analysis was submitted and interpreted. COMPARISON: Comparison to multiple prior studies sequentially, with oldest reviewed study dated 07/2017. BREAST PARENCHYMAL COMPOSITION: There are scattered areas of fibroglandular density. FINDINGS: There is no evidence of suspicious mass, calcification, or architectural distortion to sugg est malignancy in either breast. There has been no suspicious interval change. IMPRESSION: 1. No mammographic evidence of malignancy. 2. Recommend routine screening mammography in one year. BI-RADS Category 1: Negative Reviewed, dictated and finalized at location A.
== END 2023-06-28 08:55 | disposition home or self-care (01) ==
PROVIDERS: PCP Physician Assistant; Visit Provider Physician Assistant
DX: Z12.31 Encounter for screening mammogram for malignant neoplasm of breast (principal)
CPT/HCPCS: 77063; 77067

== ENCOUNTER 2023-08-21 12:52 | Outpatient (CLI) | payer MEDICARE, SELFPAY ==
--- NOTE | ~2023-08-21 | XR_ITS ---
XR abdomen/kub 1V 08/21/2023 13:17 INDICATION: Left ureteral stone TECHNIQUE: KUB COMPARISON: Comparison to multiple prior studies sequentially, with oldest reviewed study dated 04/14. FINDINGS: Bowel gas pattern is normal. There is no evidence of free air, mass, organomegaly, ascites or obstruction. There are pelvic phleboliths. No definite renal stones. Moderate lumbar spondylosis. The bones appear intact. IMPRESSION: 1: No acute abdominal abnormality identified. Reviewed, dictated and finalized at location L.
--- NOTE | ~2023-08-21 | CT_ITS ---
Non-contrast CT scan of the Abdomen and Pelvis Clinical indication: Left ureteral stone Technique: 2.5 mm axial scans were obtained through the abdomen and pelvis without intravenous or or al contrast. Dose reduction technique was used on this scan by utilizing automated exposure control a nd iterative reconstruction technique. The dose-length product (DLP) was 207.80 mGy-cm. COMPARISON: 06/18/2023 Findings: Images through the lung bases reveal no abnormalities. There is no evidence of renal or ureteral calculi. The kidneys and the ureters are nondilated. The liver, spleen, pancreas, and adrenals appear normal. Cholecystectomy clips are present. There are atherosclerotic calcifications of the aorta. There is no evidence of bowel obstruction. Images through the pelvis were performed. There is no evidence of ascites or lymphadenopathy. Urinary bladder unremarkable. No adnexal mass seen. Impression: No renal, ureteral, or bladder stone seen. No significant abnormality identified. Reviewed, dictated and finalized at [facility]. Impression: No renal, ureteral, or bladder stone seen. No significant abnormality melo rodriguez
== END 2023-08-21 12:53 | disposition home or self-care (01) ==
PROVIDERS: PCP Physician Assistant; Visit Provider Internal Medicine Gastroenterology
DX: N20.1 Calculus of ureter (principal)
CPT/HCPCS: 74018; 74176

== ENCOUNTER 2023-11-30 07:24 | Emergency (ER) | payer MEDICARE, SELFPAY ==
[2023-11-30] VITALS (16 sets, daily range): BP systolic 134–138; BP diastolic 62–74; PULSE 68–85; RESP 9–32; TEMP 36.7; O2SAT 92–100
--- NOTE | ~2023-11-30 | CT_ITS ---
EXAMINATION: CT abdomen pelvis w con DATE: 11/30/2023 10:30 INDICATION: Right lower quadrant abdominal pain. TECHNIQUE: Computed tomography (CT) of the abdomen and pelvis was performed with 100 mL Omnipaque 350 intravenous contrast. Automated exposure control and iterative reconstruction technique were employe d. The dose-length product was 378.77 mGy-cm. COMPARISON: CT abdomen and pelvis 08/21/2023 FINDINGS: The visualized portions of the lung bases demonstrate mild atelectasis. No pleural effusion . The heart size is normal. There are coronary artery calcifications. No pericardial effusion. There is a small sliding hiatal hernia. There is a 6 mm cyst in the liver. There are changes of cholecystec farhat. The spleen, pancreas, and adrenal glands are normal. There are cysts in the kidneys measuring u p to 4.8 cm on the right. There is a delayed right-sided contrast nephrogram. There is mild right hyd ronephrosis and hydroureter. There is a 4 mm stone at right ureterovesicular junction. There is diver ticulosis of the colon without evidence of diverticulitis. There are no dilated loops of bowel. The a ppendix is normal. There is a left inguinal hernia containing fat. There is calcified atherosclerosis of the aorta and many of the other arteries. There is mild thoracic and lumbar spondylosis. IMPRESSION: 1. 4 mm stone at right ureterovesicular junction with mild right hydronephrosis and hydroureter. Reviewed, dictated and finalized at location E. R [employer]
[2023-11-30 07:51] LABS: Basophils Absolute Auto 0.1 K/mm3 (0.0-0.1); Basophils Percent Auto 0.7 % (0.2-1.2); Eosinophils Absolute Auto 0.2 K/mm3 (0-0.3); Eosinophils Percent Auto 2.2 % (0-4.4); Hemoglobin 13.8 g/dL (12.0-15.0); Immature Granulocyte Absolute 0.03 K/mm3 (0.00-0.031); Immature Granulocyte Percent A 0.4 % (0-0.5); Lymphocytes Absolute Auto 2.18 K/mm3 (0.9-3.2); Lymphocytes Percent Auto 30.5 % (18.3-44.2); Mean Corpuscular HGB Conc 31.4 g/dl (32-36); Mean Corpuscular Hemoglobin 30.6 pg (26-34); Mean Corpuscular Volume 97.6 fl (80-100); Mean Platelet Volume 10.3 fl (7.4-10.4); Monocytes Absolute Auto 0.7 K/mm3 (0.1-0.6); Monocytes Percent Auto 9.8 % (2.6-8.5); Neutrophils Percent Auto 56.4 % (45.5-73.1); Platelet Count Result 246 k/mm3 (150-375); Red Blood Count 4.51 M/mm3 (4.2-5.4); Red Cell Distribution Width 13.2 % (11.5-14.5); White Blood Count 7.1 K/mm3 (4.5-10.0)
[2023-11-30] MEDS: SODIUM CHLORIDE 0.9% IV 1,000 ML 999 ML IV CONT (07:55)
[2023-11-30] MEDS: KETOROLAC 15 MG/ML VIAL (*BKC) IV PUSH (07:55)
[2023-11-30 08:01] LABS: Alanine Aminotransferase 28 U/L (6-35); Albumin Level 4.3 g/dL (3.5-5.1); Alkaline Phosphatase 92 U/L (38-126); Anion Gap 8 mmol/L (8-16); Aspartate Amino Transferase 29 U/L (14-36); Bilirubin,Total 0.7 mg/dL (0.2-1.3); Blood Urea Nitrogen 16 mg/dL (7-17); Calcium 9.6 mg/dL (8.4-10.2); Carbon Dioxide 27 mmol/L (22-30); Chloride 104 mmol/L (98-107); Estimated CRCL calculation 30 ml/min; Estimated Glomerular Filt Rate 44; Glucose 90 mg/dL (65-110); Potassium 4.3 mmol/L (3.4-5.0); Sodium 139 mmol/L (137-145)
--- NOTE | 2023-11-30 08:13 | ED.FEMALEGU ---
HPI - Female Genitourinary General Chief complaint: Urogenital-Female Stated complaint: kidney stone Time Seen by Provider: 11/30/23 07:52 History of Present Illness HPI Narrative: Patient is a 73-year-old female who presents to the emergency department this morning complaining of suprapubic abdominal pain and right lower quadrant abdominal pain. Patient states she does have a history of kidney stones and has passed many stones in the past and admits that this feels similar to her previous stones since she normally feels her kidney pain right mid to right lower quadrant pain. Patient denies any additional symptoms including chest pain, shortness of breath, nausea, vomiting, dysuria, hematuria, constipation, diarrhea, melena, hematochezia, fevers or chills. Patient also denies any headaches, dizziness, lightheadedness, blurry visions, focal weakness, numbness and or tingling. There are no other modifying, alleviating, or precipitating factors at this time. Related Data Home Medications Medication Instructions Recorded Confirmed albuterol sulfate 90 mcg/actuation 2 puff inhalation Q4-5H PRN Dyspnea 04/08/22 04/14/22 aerosol inhaler bupropion HCl 300 mg 24 hr tablet, 300 tablet PO DAILY 04/08/22 04/14/22 extended release buspirone 15 mg tablet 15 mg PO TID PRN Anxiety 04/08/22 04/14/22 clonazepam 1 mg tablet 1 tablet PO BID PRN Anxiety 04/08/22 04/11/22 fluoxetine 20 mg capsule 20 cap PO DAILY 04/08/22 04/14/22 fluoxetine 40 mg capsule 40 cap PO DAILY 04/08/22 04/14/22 rosuvastatin 40 mg tablet 40 tablet PO DAILY 04/08/22 04/14/22 zolpidem 10 mg tablet 10 tablet PO HS 04/08/22 04/14/22 Allergies Allergy/AdvReac Type Severity Reaction Status Date / Time Penicillins Allergy Severe TONGUE Verified 11/30/23 07:37 SWELLING shellfish derived AdvReac Severe Headache Verified 11/30/23 07:37 cephalexin [From Keflex] AdvReac Mild Rash Verified 11/30/23 07:37 erythromycin base AdvReac Mild Rash Verified 11/30/23 07:37 Tetracyclines AdvReac Mild Rash Verified 11/30/23 07:37 Review of Systems Review of Systems: All systems are reviewed and are negative unless stated otherwise in the HPI. [facility] Past Medical History Medical History Anxiety CAD (coronary artery disease) COPD (chronic obstructive pulmonary disease) Depression Kidney stones Overweight Surgical History Surgical History H/O: hysterectomy Family History Family History Mother Hypercholesteremia Father Glioblastoma Social History Social History Smoking packs per day: 0.5 Smoking cigarettes per day: 10.0 Years smoked: 15 Smoking pack-years: 7.50 Smoking status: Former smoker Tobacco type: cigarettes Smoking end date: 11/12/18 Alcohol intake: current Drinks per week: 1 Substance use: never Living arrangements: with family Spiritual care concerns: No Exam Narrative: General: Alert, awake, afebrile, in no acute distress. HEENT: PERRL, no rhinorrhea, no post nasal drip, oropharynx clear. Neck: Trachea midline, no JVD, no lymphadenopathy. Cardiovascular: Regular rate and rhythm, no murmurs, rubs or gallops, no peripheral edema. Respiratory: Clear to auscultation bilaterally, no tachypnea, no wheezing, no rhonchi, no rubs, no respiratory distress. Abdomen: Soft, tenderness to palpation over the suprapubic region and right lower quadrant, nondistended, no rebound, no guarding, no peritoneal signs. Musculoskeletal: No joint swelling or deformity, normal muscle tone. Skin: No rashes or petechia, no signs of infection. Psychiatric: Alert and oriented, normal behavior and judgment for situation. Neurological: Alert and oriented to person, place, and time. Follows all commands. No focal deficits, speech is clear and
[2023-11-30] MEDS: ONDANSETRON INJ 4 MG/2 ML VIAL IV PUSH (08:36)
[2023-11-30] MEDS: MORPHINE SULFATE (*CRX) 4 MG/ML INJ IV PUSH (08:37)
[2023-11-30 11:26] LABS: Appearance Urine Clear (Clear); Bacteria Urine None Seen /hpf; Bilirubin Urine Negative (Negative); Blood Urine 3+ (Negative); Color Urine Yellow (Yellow); Glucose Urine UA Negative (Negative); Ketones Urine Trace mg/dL (Negative); Leukocyte Esterase Ur Negative LEU/UL (Negative); Mucus Urine Present /lpf; Nitrate Urine Negative (Negative); Protein Urine 1+ mg/dL (Negative); RBC Urine 21-50 /hpf (0-2); Squamous Epithelial Cell Urine None seen /hpf (Few); WBC Urine 0-5 /hpf; pH Urine 5.5 (5.0-9.0)
[2023-11-30 11:27] LABS: Specific Grav Ur 1.046 (1.001-1.035)
[2023-11-30 11:28] LABS: Add Urine Microscopic? YES
== END 2023-11-30 12:07 | disposition home or self-care (01) ==
PROVIDERS: Emergency Provider Emergency Medicine; PCP Physician Assistant
DX: N13.2 Hydronephrosis with renal and ureteral calculous obstruction (principal); R31.9 Hematuria, unspecified; I25.10 Atherosclerotic heart disease of native coronary artery without angina pectoris; J44.9 Chronic obstructive pulmonary disease, unspecified; E66.3 Overweight; Z68.24 Body mass index [BMI] 24.0-24.9, adult; F32.A Depression, unspecified; F41.9 Anxiety disorder, unspecified; Z87.442 Personal history of urinary calculi; Z87.891 Personal history of nicotine dependence; Z90.710 Acquired absence of both cervix and uterus
CPT/HCPCS: 36415; 74177; 80053; 81001; 85025; 96361; 96374; 96375; 99284; J1885; J2270; J2405; J7030; Q9967

== ENCOUNTER 2024-03-24 15:02 | Outpatient (CLI) | payer MEDICARE, SELFPAY ==
--- NOTE | ~2024-03-24 | CT_ITS ---
EXAMINATION: CT abdomen pelvis wo con DATE: 03/24/2024 15:25 INDICATION: RT FLANK PAIN TECHNIQUE: Computed tomography (CT) of the abdomen and pelvis was performed without intravenous contr ast. Automated exposure control and iterative reconstruction technique were employed. The dose-length product was 355.50 mGy-cm. COMPARISON: 11/30/2023. FINDINGS: Lower thorax: Mild dependent atelectasis. Small air cyst in the left lower lobe. Heavy coronary arter y calcification. Liver: Normal. Biliary/Gallbladder: Gallbladder is absent. No bile duct dilation. Pancreas: Fatty infiltration. Spleen: Normal. Adrenals:No mass. Kidneys: No suspicious mass, obstructing stone, or hydronephrosis. Tiny subcentimeter hemorrhagic/pro teinaceous cyst in the right upper pole. Bilateral simple renal cysts measuring up to 5.1 cm on the l eft. GI tract: Small hiatal hernia. Colonic submucosal fat as can be seen with chronic IBD, obesity, chemo therapy treatment, and celiac disease. No small or large bowel dilation. Normal appendix. Diverticulo sis without diverticulitis. Mesentery/Peritoneum: No ascites, mass, or free air. Retroperitoneum: No mass. Atherosclerotic abdominal aortic and/or arterial calcifications. Pelvis: Normal urinary bladder. Absent uterus. Bilateral ovaries not confidently visualized. Soft Tissues: Soft tissues and body wall unremarkable. Small uncomplicated fat-containing left wilfred l hernia. Bones: No acute osseous finding. IMPRESSION: No acute abdominopelvic process detected. Reviewed, dictated and finalized at location K.
== END 2024-03-24 15:03 | disposition home or self-care (01) ==
PROVIDERS: PCP Physician Assistant; Visit Provider Physician Assistant
DX: R10.9 Unspecified abdominal pain (principal)
CPT/HCPCS: 74176

== ENCOUNTER 2024-04-10 08:16 | Emergency (ER) | payer MEDICARE, SELFPAY ==
--- NOTE | ~2024-04-10 | XR_ITS ---
EXAMINATION: XR ankle LT min 3V DATE: 04/10/2024 09:03 INDICATION: Left ankle injury. TECHNIQUE: 4 views of left ankle were obtained. COMPARISON: None. FINDINGS: Bone alignment is normal. No fracture. Joint spaces are normal. There are enthesophytes at the posterior and plantar aspects of calcaneal tuberosity. Ankle soft tissue swelling is noted. IMPRESSION: 1. No fracture. Reviewed, dictated and finalized at location A. IMPRESSION: 1. No fracture.
[2024-04-10 08:21] VITALS: BP 131/64; PULSE 88; RESP 18; TEMP 36.2; O2SAT 96
--- NOTE | 2024-04-10 09:51 | ED.LOWEXIN ---
HPI - Extremity Injury (Lower) General Chief Complaint: Extremity Injury, Lower Stated Complaint: Ankle injury Time Seen by Provider: 04/10/24 09:13 Source: patient Mode of arrival: ambulatory Limitations: no limitations History of Present Illness HPI Narrative: This is a 74 year old female that presents to the ER for left ankle pain after an injury playing pickleball yesterday. Reports twisting of the ankle. Reports pain especially in the lateral aspect of the ankle. Reports bruising and swelling to the area. Denies decreased range of motion or numbness. Related Data Home Medications Medication Instructions Recorded Confirmed albuterol sulfate 90 mcg/actuation 2 puff inhalation Q4-5H PRN Dyspnea 04/08/22 04/14/22 aerosol inhaler bupropion HCl 300 mg 24 hr tablet, 300 tablet PO DAILY 04/08/22 04/14/22 extended release buspirone 15 mg tablet 15 mg PO TID PRN Anxiety 04/08/22 04/14/22 clonazepam 1 mg tablet 1 tablet PO BID PRN Anxiety 04/08/22 04/11/22 fluoxetine 20 mg capsule 20 cap PO DAILY 04/08/22 04/14/22 fluoxetine 40 mg capsule 40 cap PO DAILY 04/08/22 04/14/22 rosuvastatin 40 mg tablet 40 tablet PO DAILY 04/08/22 04/14/22 zolpidem 10 mg tablet 10 tablet PO HS 04/08/22 04/14/22 Allergies Allergy/AdvReac Type Severity Reaction Status Date / Time Penicillins Allergy Severe TONGUE Verified 04/10/24 08:27 SWELLING shellfish derived AdvReac Severe Headache Verified 04/10/24 08:27 cephalexin [From Keflex] AdvReac Mild Rash Verified 04/10/24 08:27 erythromycin base AdvReac Mild Rash Verified 04/10/24 08:27 Tetracyclines AdvReac Mild Rash Verified 04/10/24 08:27 Review of Systems Review of Systems: CONSTITUTIONAL: Denies fever MUSCULOSKELETAL: Reports joint pain, and myalgia. NEUROLOGIC: Denies numbness All systems reviewed & are unremarkable except as noted in HPI and below PMFSH Past Medical History Medical History Anxiety CAD (coronary artery disease) COPD (chronic obstructive pulmonary disease) Depression Kidney stones Overweight Surgical History Surgical History H/O: hysterectomy Family History Family History Mother Hypercholesteremia Father Glioblastoma Social History Social History Smoking packs per day: 0.5 Smoking cigarettes per day: 10.0 Years smoked: 15 Smoking pack-years: 7.50 Smoking status: Former smoker Tobacco type: cigarettes Smoking end date: 11/12/18 Alcohol intake: current Drinks per week: 1 Substance use: never Living arrangements: with family Spiritual care concerns: No Exam Narrative: GENERAL: Well-appearing, well-nourished, and in no acute distress. HEAD: Normocephalic, atraumatic. EYES: EOMI. EXTREMITIES: Normal range of motion. No obvious deformity. Bruising and swelling to the lateral malleoli. Normal DP pulse. Normal sensation SKIN: Warm, dry, no rash. NEURO: No focal deficits. Alert and oriented x3. PSYCH: Normal mood and affect Course Course Emergency Course: patient updated on workup and agrees with plan of care Vital Signs Vital signs: Vital Signs Temperature 97.2 F L 04/10/24 08:21 Pulse Rate 88 04/10/24 08:21 Respiratory Rate 18 04/10/24 08:21 Blood Pressure 131/64 04/10/24 08:21 Pulse Oximetry 96 04/10/24 08:21 Oxygen Delivery Room Air 04/10/24 08:21 Temperature 97.2 F L 04/10/24 08:21 Pulse Rate 88 04/10/24 08:21 Respiratory Rate 18 04/10/24 08:21 Blood Pressure 131/64 04/10/24 08:21 Pulse Oximetry 96 04/10/24 08:21 Oxygen Delivery Room Air 04/10/24 08:21 Procedures Orthopedic Splinting/Casting Injury #1: Splinting/Casting Date: 04/10/24 Splinting/Casting Time: 09:55 Side: left Lower Extremity Injury L
[2024-04-10] MEDS: HYDROcodone/acetaminophen (*CRX) 5-325 MG TABLET 1 TAB PO (09:55)
== END 2024-04-10 10:07 | disposition home or self-care (01) ==
LOC: ANHED 10:06
PROVIDERS: Emergency Provider Physician Assistant; PCP Physician Assistant
DX: S93.402A Sprain of unspecified ligament of left ankle, initial encounter (principal); I25.10 Atherosclerotic heart disease of native coronary artery without angina pectoris; J44.9 Chronic obstructive pulmonary disease, unspecified; E66.3 Overweight; Z68.26 Body mass index [BMI] 26.0-26.9, adult; F32.A Depression, unspecified; F41.9 Anxiety disorder, unspecified; Z87.891 Personal history of nicotine dependence; Z87.442 Personal history of urinary calculi; X50.9XXA Other and unspecified overexertion or strenuous movements or postures, initial encounter; Y93.79 Activity, other specified sports and athletics
CPT/HCPCS: 73610; 99283; A9270

== ENCOUNTER 2024-07-28 13:43 | Outpatient (CLI) | payer MEDICARE, SELFPAY ==
--- NOTE | ~2024-07-28 | DEXA_ITS ---
Bone Density Report Name: ZOË RAI Age: 74 Sex: Female Ethnicity: White Date of : 1950 Indication: osteopenia; asthma or emphysema; hysterectomy; Referring Provider: HARPERLUIS Study: Bone densitometry was performed. Exam Date: July 28, 2024 Accession number: [id number] Bone Density: Region BMD T-score Z-score Classification AP Spine(L1-L4) 0.979 -0.6 1.6 Normal Femoral Neck (Left) 0.619 -2.1 -0.1 Osteopenia Total Hip (Left) 0.784 -1.3 0.3 Osteopenia Femoral Neck (Right) 0.591 -2.3 -0.4 Osteopenia Total Hip (Right) 0.732 -1.7 -0.1 Osteopenia Total Hip Mean 0.758 -1.5 0.1 Osteopenia World Health Organization criteria for BMD impression classify patients as: Normal (T-score at or above -1.0), Osteopenia (T-score between -1.0 and -2.5), or Osteoporosis (T-score at or below -2.5). 10-year Fracture Risk(1): Major Osteoporotic Fracture 14% Hip Fracture 3.4% Reported Risk Factors: [place] (), Neck BMD=0.591, BMI=26.1 (1) FRAX(R) Version 3.08. Fracture probability calculated for an untreated patient. Fracture probability may be lower if the patient has received treatment. Previous Exams: Region Exam Age BMD T-score BMD Change BMD Change Date g/cm2 vs Baseline vs Previous AP Spine (L1-L4) 07/28/2024 74 0.979 -0.6 0.018 (1.9%) 0.018 (1.9%) 03/13/2022 71 0.961 -0.8 Total Hip(Left) 07/28/2024 74 0.784 -1.3 -0.031 (-3.8%) -0.031 (-3.8%) 03/13/2022 71 0.815 -1.0 Total Hip(Right) 07/28/2024 74 0.732 -1.7 -0.010 (-1.3%) -0.010 (-1.3%) 03/13/2022 71 0.742 -1.6 *Denotes significance at 95% confidence level, LSC for AP Spine = 0.022 g/cm2, LSC for Total Hip = 0.027 g/cm2 Clinical Information Provided by Patient: Has used the following medications: Vitamin D Has the following medical conditions: Asthma or Emphysema, Hysterectomy, stage 3a kidney disease Patient maximum height was 62.0 Menopause Age: 44 Drinks caffeinated beverages Onset of menses at age 15 Impression: The patient has low bone mass, based on the Right Femoral Neck T-score. The patient has an estimated ten-year risk of hip fracture of 3.4% and an estimated ten-year risk of major fracture of 14%, based on the WHO FRAX algorithm. The BMD for the Total Hip(Left) decreased, changing by -3.8% since the last DXA exam. Discussion: BONE DENSITY IS LOW AT ONE OR MORE SKELETAL SITES. THE PATIENT'S BMD A
--- NOTE | ~2024-07-28 | MM_ITS ---
EXAMINATION: MM screening [facility] BI w ramses HISTORY: Screening mammogram TECHNIQUE: Craniocaudal and mediolateral oblique 3-D tomosynthesis images were obtained and synthetic 2-D images were generated. CAD analysis was submitted and interpreted. COMPARISON: 06/28/2023, 03/13/2022, 09/30/2019 BREAST PARENCHYMAL COMPOSITION:Not Dense. There are scattered areas of fibroglandular density. FINDINGS: No suspicious mass, calcification, or architectural distortion are identified in either greg ast to suggest malignancy. There has been no suspicious interval change. IMPRESSION: No mammographic evidence of malignancy. Recommend routine screening mammography in one year. BI-RADS Category 1: Negative Reviewed, dictated and finalized at location .
== END 2024-07-28 13:44 | disposition home or self-care (01) ==
LOC: ANHIMG 13:45
PROVIDERS: PCP Physician Assistant; Visit Provider Physician Assistant
DX: Z12.31 Encounter for screening mammogram for malignant neoplasm of breast (principal); Z78.0 Asymptomatic menopausal state; M85.852 Other specified disorders of bone density and structure, left thigh; M85.851 Other specified disorders of bone density and structure, right thigh
CPT/HCPCS: 77063; 77067; 77080

== ENCOUNTER 2024-11-01 10:26 | Outpatient (CLI) | payer MEDICARE, SELFPAY ==
--- NOTE | ~2024-11-01 | CT_ITS ---
EXAMINATION:CT lung screening DATE: 11/01/2024 10:55 INDICATION: Personal history of nicotine dependence. 20 pack year history. TECHNIQUE: Computed tomography (CT) of the chest was performed without intravenous contrast. Automate d exposure control and iterative reconstruction technique were employed. The dose-length product (DLP ) was 63.92 mGy-cm. COMPARISON: Chest CT 04/20/2023 FINDINGS: The lungs demonstrate mild atelectasis. There is mild emphysema. There is a 2 mm nodule in left upper lobe. No pleural effusion. The heart size is normal. There are coronary artery calcificati ons. No pericardial effusion. There is an aberrant right subclavian artery. There is a small sliding hiatal hernia. There are changes of cholecystectomy. There are cysts in left kidney measuring up to 4 .7 cm. There is mild thoracic spondylosis. IMPRESSION: 1. Lung-RADS category 2: Benign appearance or behavior. Continue annual screening with noncontrast lo w-dose chest CT in 12 months. Reviewed, dictated and finalized at location A. EXAMINER IMPRESSION: 1. Lung-RADS category 2: Benign appearance or behavior. Continue annual screeni ng with noncontrast low-dose chest CT in 12 months.
--- OUTSIDE RECORDS SUMMARY | 2024-11-08 13:57 | XMS_ITS | Encounter Summary ---
Author Organization [facility] Address [address] [place] [address]. [place], [place] [id number] [place] [id number] Care Team Providers Care Car Racer Name Role Phone None, Provider Primary Care Provider Vladimira ble Encounter Details Date Type Department Care Team (Late st Contact Info) Description 05/04/2020 Orders Only [facility]is[facility] - [facility] [address] [facility] [facility], [address] [place] [id number] Carrie Patterson RN Social History Tobacco Use Types Packs/Day Years Used Date Smoking Tobacco: Never Assessed Comments Unknown Sex and Gender Information Value Date Recorded Sex Assigned at Not on file Legal Sex Female 9:39 AM CDT Gender Identity Not on file Sexual Orientation Not on file documented as of this encounter Plan of Treatment Not on file documented as of this encounter Visit Diagnoses Not on filedocumented in this encounter Care Teams Car Racer Relationship Specialty Start Date End Date None, ProviderMD PCP - General 03/28/17 05/06/20 documented as of this encounter
--- OUTSIDE RECORDS SUMMARY | 2024-11-08 13:57 | XMS_ITS | Encounter Summary ---
Author Organization [facility] Address [address] [place] [address]. [place] [address] [place] [address] Care Team Providers Care Rfid Engineer Name Role Phone None, Provider MD Primary Care Provider Unavaila ble Reason for Visit * Reason Comments Thumb Pain Bilateral for 1+ yea rs no previous treatment * Consultation/Treatment (Routine) - Closed Specialty Diagnoses / Procedures Referred By Hiram chance Referred To Contact HAND SURGERY / ORTHOPAEDICS Diagnoses Pain in thumb joint with movement patient has no imaging or X rays Pain in Thumbs joints--- Procedures NEW PATIENT Bunny Savage MD [address] [place] [address] Phone: tel: fax: Bunny Savage MD [address] [place] [address] Phone: tel: fax: Referral ID Status Reason Start Date Expiration Date Visits Re quested Visits Authorized [id number] Closed 05/05/2020 05/06/2021 100 100 Encounter Details Date Type Department Care Team (Latest Contact Info) Description 05/05/2020 10:00 AM CDT Office Visit [facility] Multispecialty Care - [facility] [address] [place] [id number] Bunny Savage MD [address] [place] [address] Thumb Pain (Bilateral for 1+ years no previous treatment) Social History Tobacco Use Types Packs/Day Years Used Date Smoking Tobacco: Never Assessed Comments Unknown Sex and Gender Information Value Date Recorded Sex Assigned at Not on file Legal Sex Female 9:39 AM CDT Gender Identity Not on file Sexual Orientation Not on file COVID-19 Exposure Response Date Recorded In the last month, have you been in contact with someone who was confirmed or suspected to have Coronavirus / COVID-19? No / Unsure 05/05/2020 9:38 AM CDT documented as of this encounter Last Filed Vital Signs Vital Sign Reading Time Taken Comments Blood Pressure 115/68 05/05/2020 10:43 AM CDT Pulse 74 05/05/2020 10:43 AM CDT Temperature - - Respiratory Rate - - Oxygen Saturation 97% 05/05/2020 10:43 AM CDT Inhaled Oxygen Concentration - - Weight 63 kg (138 lb 14.4 oz) 05/05/2020 10:43 A M CDT Height - - Body Mass Index - - documented in this encounter Progress Notes * Bunny Savage MD - 05/05/2020 10:00 AM CDT Images from the original note were not included. OFFICE VISIT SUBJECTIVE Reason for Visit: Thumb Pain (Bilateral for 1+ years no previous treatment) History of Present Illness: 70-year-old right-hand dominant female presents for evaluation of pain along base of thumb. Complaining of 1 year years history of gradually worsening symptom localized mainly along base of the left thumb and along Bilateral thumb MCP joints. Patient describes a constant aching sensation or awareness 2/10 of the left thumb base that turns into more severe sharp pain with activities of ADLs that involve pinch or litigation attorney, such as opening jars or bottles. Patient has symptoms daily and rates her condition overall as moderate. Patient rates the interference that symptoms impose on ADLs as modertae. She also complains of associated weakness of the litigation attorney. Previous treatments: NSAID's, activity modification. No history of trauma. No other complaints or acute events to report. Past medical history, past social history, past surgical history and past family history were all completely reviewed and stated as follows Review of Systems: Review of Systems Constitutional: Negative. HENT: Negative. Eyes: Negative. Respiratory: Negative. Cardiovascular: Negative. Gastrointestinal: Negative. Genitourinary: Negative. Musculoskeletal: Positive for joint pain. Skin: Negative. Neurological: Negative. Endo/Heme/Allergies: Negative. Psychiatric/Behavioral: Negative. History: History reviewed. No pertinent past medical history. History reviewed. No pertinent surgical history. No family history on file. Social History Tobacco Use ??? Smoking status: Not on file Substance Use Topics ??? Alcohol use: Not on file ??? Drug use: Not on file Medications and Allergies: Current Outpatient Medications: ??? buPROPion XL 300 MG 24 hr tablet, Take 300 mg by mouth every morning., Disp: , Rfl: ??? clonazePAM 1 MG tablet, TK 1 T PO NIGHTLY PRF ANXIETY, Disp: , Rfl: ??? DULoxetine 60 MG capsule, Take 60 mg by mouth daily., Disp: , Rfl: ??? FLUoxetine 40 MG capsule, , Disp: , Rfl: ??? rosuvastatin 20 MG tablet, , Disp: , Rfl: ??? valACYclovir 1 g tablet, , Disp: , Rfl: ??? zolpidem 10 MG tablet, Take 10 mg by mouth nightly as needed., Disp: , Rfl: Current Facility-Administered Medications: ??? dexamethasone (DECADRON) injection 4 mg, 4 mg, Intramuscular, Once, Bunny Savage MD ??? dexamethasone (DECADRON) injection 4 mg, 4 mg, Intramuscular, Once, Bunny Savage MD Allergies Allergen Reactions ??? Cephalexin Unknown ??? Erythromycin Unknown ??? Penicillin V Unknown ??? Shellfish Allergy Unknown OBJECTIVE Vital Signs: Filed Vitals: 05/05/20 1043 BP: 115/68 Pulse: 74 SpO2: 97% Weight: 63 kg (138 lb 14.4 oz) There is no height or weight on file to calculate BMI. Physical Exam: Physical Exam Constitutional: She is oriented to person, place, and time. She appears well- developed and well-nourished. HENT: Head: Normocephalic. Eyes: EOM are normal. Lymph nodes: No palpable lymphadenopathy involving bilateral upper extremities. Cardiovascular: Intact distal pulses. Pulmonary/Chest: Effort normal. No respiratory distress. Neurological: She is alert and oriented to person, place, and time. Psychiatric: She has a normal mood and affect. Upper Extremity Exam: Right Upper Extremity Upper Arm : no tenderness, no swelling, no masses, no deformities Elbow : Inspection/Palpation: no tenderness, no swelling, no erythema, no induration, no bruising. All muscle compartments soft, no joint effusion present, no deformities noted, no masses present, no arthritic changes. Negative lateral/medial epicondylitis provocation test Range of Motion: Active and Passive ROM within functional range for age/activity level Strength: flexion and extension 5/5 Stability: no joint instability on provocative testing Tests/Signs: Tinel's and compression sign negative over cubital tunnel Forearm: no tenderness to palpation, no swelling, no forearm deformities noted, no masses present Wrist: Inspection/Palpation: no tenderness, no swelling, no erythema, no induration, no bruising. All muscle compartments soft, no joint effusion present, no deformities noted, no masses present, no arthritic changes, no crepitus noted in wrist/carpus Range of Motion: Active and Passive ROM within functional range for age/activity level Strength: flexion and extension and lateral deviation 5/5 Stability: no joint instability on provocative testing Tests/Signs: Tinel's and compression sign negative over carpal tunnel, Justin test negative Hand : Inspection/Palpation: Significant local tenderness on thumb MCPJ associated with + painful lateral stress test. no tenderness, no swelling, no erythema, no induration, no bruising. All muscle compartments soft, no joint effusion present, no deformities noted, no masses present, no arthritic changes. No crepitus hand/fingers on ROM testing, no deformities of hand or fingers Range of Motion: Active and passive ROM within functional range for age/activity level Strength: all muscles 5/5 Stability: no joint instability on provocative testing Sensation: hand neuro-vascular exam intact Muscle Tone: tone normal Muscle Bulk: muscle bulk normal Skin: no skin lesions or discoloration Vascular Exam: normal capillary refill, radial artery pulse 2, ulnar artery pulse 2, normal finger capillary refill Left Upper Extremity Upper Arm : no tenderness, no swelling, no masses, no deformities Elbow : Inspection/Palpation: no tenderness, no swelling, no erythema, no induration, no bruising. All muscle compartments soft, no joint effusion present, no deformities noted, no masses present, no arthritic changes. Negative lateral/medial epicondylitis provocation test Range of Motion: Active and Passive ROM within functional range for age/activity level Strength: flexion and extension 5/5 Stability: no joint instability on provocative testing Tests/Signs: Tinel's and compression sign negative over cubital tunnel Forearm: no tenderness to palpation, no swelling, no forearm deformities noted, no masses present Wrist: Inspection/Palpation: no tenderness, no swelling, no erythema, no induration, no bruising. All muscle compartments soft, no joint effusion present, no deformities noted, no masses present, no arthritic changes, no crepitus noted in wrist/carpus Range of Motion: Active and Passive ROM within functional range for age/activity level Strength: flexion and extension and lateral deviation 5/5 Stability: no joint instability on provocative testing Tests/Signs: Tinel's and compression sign negative over carpal tunnel, Justin test negative Hand : Inspection/Palpation: Significant local tenderness on thumb MCPJ and CMCJ associated with + painfullateral stress test of MCPJ and + grind test on thumb CMC. no tenderness, no swelling, no erythema,no induration, no bruising. All muscle compartments soft, no joint effusion present, no deformitiesnoted, no masses present, no arthritic changes. No crepitus hand/fingers on ROM testing, no deformities of hand or fingers Range of Motion: Active and passive ROM within functional range for age/activity level Strength: all muscles 5/5 Stability: no joint instability on provocative testing Sensation: hand neuro-vascular exam intact Muscle Tone: tone normal Muscle Bulk: muscle bulk normal Skin: no skin lesions or discoloration Vascular Exam: normal capillary refill, radial artery pulse 2, ulnar artery pulse 2, normal finger capillary refill Recent Imaging: X-ray review: Alignment within normal limits, No gross deformities, no soft tissue abnormalities, lesions or gas.No bony tumors or lesions. No acute fracture, mild diffuse arthritic changes. ASSESSMENT Ani was seen today for thumb pain. Diagnoses and all orders for this visit: Arthritis of left hand - dexamethasone (DECADRON) injection 4 mg - DRAIN/INJECT SMALL JOINT/BURSA Arthritis of right hand - dexamethasone (DECADRON) injection 4 mg - DRAIN/INJECT SMALL JOINT/BURSA Arthritis of carpometacarpal (CMC) joint of left thumb PLAN Treatment/Counselling: Etiology, pathophysiology and natural history of thumb CMC and MCPJ Osteoarthritis was discussed with the patient. including detail explanation of relevant anatomy. Treatment desicions based on severity of symptoms, chronicity, response to initial management, patient's coomorbidities, activity level, wishes etc were also explained. Treatment options from doing nothing, splints, therapy, anti-inflammatories by mouth, steroids by mouth or injection, PRP/BMC injections, OT, arthroscopic interposition arthroplasty, trapezium removal with LRTI, fusion, joint replacements, were all discussed with the patient including risks, benefits and indications. Surgical risks including but not limited to, infection, bleeding, injury to surrounding structures,cicatrix, pain recurrence, joint stiffness, persistent pain, chronic swelling, need of further surgery, were all discussed. Post operative rehab was also explained in detail. Patient voices her understanding and wishes to proceed with steroid injections to bilateral thumb MCPJ. Procedure: RIGHT THUMB MCPJ STEROID INJECTION PROCEDURE NOTE: The risks, benefits and indications of steroid injections including but not limitedto infection, bleeding, injury to underlying neurovascular structures, hematoma, seroma, skin pigment discoloration, weakening of surrounding soft tissues, incomplete relief, and eventual need for more definitive surgical intervention were explained to the patient. Due to significant narrowing of joint space imaging diagnosis is indicated to allow accurate and atraumatic needle placement, avoiding regional osteophytes and neurovascular structures The patient was in full understanding and wishedto proceed with steroid injection at this time: , DETAILS: -U/S GUIDED STEROID INJECTION RIGHT THUMB FINGER MCPJOINT , Following sterile precautions, after prepping the site, Ultrasound probe was placed on thumb base site of injection to localize joint space, and guide needle placement for accurate atraumatic procedure. Patient finger was placedunder gentle manual traction to help open articular space, and Under constant US image guide, 25g ne edle was advanced intra-articularly in atraumatic fashion. 1 cc of lidocaine and 1 cc of dexamethasone were injected at the site with sterile precautions uneventfully. The patient tolerated the procedure well. . The injection site was covered with a Band-Aid. The patient was informed that they may experience more discomfort in the 24-48 hours following steroid injection after which symptoms of pain and discomfort should begin to resolve. LEFT THUMB MCPJ STEROID INJECTION PROCEDURE NOTE: The risks, benefits and indications of steroid injections including but not limitedto infection, bleeding, injury to underlying neurovascular structures, hematoma, seroma, skin pigment discoloration, weakening of surrounding soft tissues, incomplete relief, and eventual need for more definitive surgical intervention were explained to the patient. Due to significant narrowing of joint space imaging diagnosis is indicated to allow accurate and atraumatic needle placement, avoiding regional osteophytes and neurovascular structures The patient was in full understanding and wishedto proceed with steroid injection at this time: , DETAILS: -U/S GUIDED STEROID INJECTION LEFT THUMB FINGER MCPJOINT , Following sterile precautions, after prepping the site, Ultrasound probe was placed on thumb base site of injection to localize joint space, and guide needle placement for accurate atraumatic procedure. Patient finger was placed under gentle manual traction to help open articular space, and Under constant US image guide, 25g needle was advanced intra-articularly in atraumatic fashion. 1 cc of lidocaine and 1 cc of dexamethasone were injected at the site with sterile precautions uneventfully. The patient tolerated the procedure well. . The injection site was covered with a Band-Aid. The patient was informed that they may experience more discomfort in the 24-48 hours following steroid injection after which symptoms of pain and discomfort should begin to resolve. BUNNY SAVAGE MD 05/05/2020 Cc. No primary care provider on file. Self Referral documented in this encounter Plan of Treatment Scheduled Orders Name Type Priority Associated Diagnoses Orde r Schedule DRAIN/INJECT SMALL JOINT/BURSA Procedures Routine Arthritis of left hand Ordered: 05/05/2020 DRAIN/INJECT SMALL JOINT/BURSA Procedures Routine Arthritis of right hand Ordered: 05/05/2020 documented as of this encounter Visit Diagnoses Diagnosis Arthritis of left hand- Primary Unspecified arthropathy, hand Arthritis of right hand Unspecified arthropathy, hand Arthritis of carpometacarpal (CMC) joint of left thumb documented in this encounter Care Teams Rfid Engineer Relationship Specialty Start Date End Date None, Provider, PCP - General 03/28/17 05/06/20 documented as of this encounter
--- OUTSIDE RECORDS SUMMARY | 2024-11-08 13:57 | XMS_ITS | Encounter Summary ---
Author Organization [facility] Address [address] [place] [address]. [place], [place] [id number] [place] [address] Care Team Providers Care Can Sorter Name Role Phone None, Provider Primary Care Provider Unavaila ble Encounter Details Date Type Department Care Team (Latest Contact Info) Description 05/05/2020 Travel Social History Tobacco Use Types Packs/Day Years [...] AM CDT documented as of this encounter Plan of Treatment Not on file documented as of this encounter Visit Diagnoses Not on filedocumented in this encounter Care Teams Can Sorter Relationship Specialty Start Date End Date None, Provider, PCP - General 03/28/17 05/06/20 documented as of this encounter
--- OUTSIDE RECORDS SUMMARY | 2024-11-08 13:57 | XMS_ITS | Encounter Summary ---
Author Organization [facility] Address [address] [place] [address]. [place] [address] [place] [address] Care Team Providers Care Party Plan Dealer Name Role Phone None, Provider MD Primary Care Provider Unavaila ble Reason for Visit * Reason Onset Date Comments Error 05/07/2020 Encounter Details Date Type Department Care Team (Late st Contact Info) Description 05/07/2020 Telephone [facility] Medical [facility] Multispecialty Care - [facility] [address], [address] [place] [phone] Adrian Rolon MD [address] [place] [address] Error Social History Tobacco Use Types Packs/Day Years [...] AM CDT documented as of this encounter Progress Notes * Sasha March - 05/07/2020 3:23 PM CDT Encounter opened in error. documented in this encounter Plan of Treatment Not on file documented as of this encounter Visit Diagnoses Diagnosis ERRONEOUS ENCOUNTER--DISREGARD- Primary documented in this encounter Care Teams Party Plan Dealer Relationship Specialty Start Date End Date None, Provider, PCP - General 05/07/20 05/26/20 documented as of this encounter
--- OUTSIDE RECORDS SUMMARY | 2024-11-08 13:57 | XMS_ITS | Encounter Summary ---
Author Organization [facility] Address [address] [place] [address]. [place] [address] [place] [address] Care Team Providers Care Field Operations Coordinator Name Role Phone None, Provider Primary Care Provider Unavaila ble Reason for Visit * Reason Onset Date Comments Appointment Request 01/13/2020 Encounter Details Date Type Department Care Team (Late st Contact Info) Description 01/13/2020 Telephone [facility] Multispecialty Care - [facility] [address] [facility], [address] [place] [phone] Bunny Marin MD [address] [place] [address] Appointment Request Social History Tobacco Use Types Packs/Day Years Used Date Smoking Tobacco: Never Assessed Comments Unknown Sex and Gender Information Value Date Recorded Sex Assigned at Not on file Legal Sex Female 9:39 AM CDT Gender Identity Not on file Sexual Orientation Not on file documented as of this encounter Progress Notes * Shea Mcleod - 01/14/2020 2:34 PM CST Patient schedule CAL LIAISON * Agnieszka Mcarthur MA - 01/14/2020 10:[address] Marin ok to schedule 1st avail placed for scheduling CAL LIAISON CAL LIAISON * Sasha March - 01/13/2020 3:02 PM CST Pt said she had her pcp, dr viri thompson at [facility] refer her to for pain in her thumb joints. She has not had imaging, injections or prior surgery. She said her daughter works ([employer]) with dr. marin [place] and he told her to mention that when she called and we would get her set. I offered to get her set with gustavo or but she only wants to see dr. marin so she asked if you could call her about when we could get her in for an apt. I asked her to call pcp again to have her info refaxed to us as I did not see anything in here for her yet. She said she has medicare parta&b and a secondary ins. CAL LIAISON documented in this encounter Plan of Treatment Not on file documented as of this encounter Visit Diagnoses Not on filedocumented in this encounter Care Teams Field Operations Coordinator Relationship Specialty Start Date End Date None, Provider, PCP - General 03/28/17 05/06/20 documented as of this encounter
--- OUTSIDE RECORDS SUMMARY | 2024-11-08 13:57 | XMS_ITS | Encounter Summary ---
Author Organization [facility] Address [address] [place] [address]. [place], [place] [id number] [place] [address] Care Team Providers Care Tug Boat Engineer Name Role Phone Gbai Victoria Primary Care Provider [phone] Encounter Details Date Type Department Care Team (Latest Contact Info) Description 05/27/2020 Travel Social History Tobacco Use Types Packs/Day [...] have Coronavirus / COVID-19? No / Unsure 05/27/2020 1:24 PM CDT documented as of this encounter Plan of Treatment Not on file documented as of this encounter Visit Diagnoses Not on filedocumented in this encounter Care Teams Tug Boat Engineer Relationship Specialty Start Date End Date Gabi Victoria PA [address] [place] [address] [address] [place] [address] PCP - General PHYSICIAN DIVERSITY MANAGER 05/27/20 documented as of this encounter
--- OUTSIDE RECORDS SUMMARY | 2024-11-08 13:57 | XMS_ITS | Encounter Summary ---
Author Organization [facility] Address [address] [place] [address]. [place], [place] [address] [place] [address] Care Team Providers Care Curb Attendant Name Role Phone None, Provider Primary Care Provider Vladimira ble Encounter Details Date Type Department Care Team (Late st Contact Info) Description 05/05/2020 Orders Only [facility] Medical Group Multispecialty Care - [facility] [address] [facility], [address] [place] [phone] Carrie Patterson RN Social History Tobacco Use [...] on filedocumented in this encounter Care Teams Curb Attendant Relationship Specialty Start Date End Date None, ProviderMD PCP - General 03/28/17 05/06/20 documented as of this encounter
--- OUTSIDE RECORDS SUMMARY | 2024-11-08 13:57 | XMS_ITS | Encounter Summary ---
Author Organization [facility] Address [address] [place] [address]. [place] [address] [place] [address] Care Team Providers Care Hog Grader Name Role Phone Gabi [place] Primary Care Provider [phone] Reason for Visit * Reason Comments Thumb Pain Dylan after injections 05/05/20. Has braces * Consultation/Treatment (Routine) - Closed Specialty Diagnoses / Procedures Referred By Hiram t Referred To Contact HAND SURGERY / ORTHOPAEDICS Diagnoses Pain in thumb joint with movement patient has no imaging or X rays Pain in Thumbs joints--- Procedures NEW PATIENT Bunny Savage MD [address] [facility] [address] Phone: tel: fax: Bunny Savage MD [address] [place] [address] Phone: tel: fax: Referral ID Status Reason Start Date Expiration Date Visits Re quested Visits Authorized [id number] Closed 05/05/2020 05/06/2021 100 100 Encounter Details Date Type Department Care Team (Latest Contact Info) Description 05/27/2020 1:40 PM CDT Office Visit [facility] Mult[facility]pecialty Care - [facility] [address] [facility] [place] [address] Bunny Savage MD [address] [place], [place] [id number] Thumb Pain (Dylan after injections 05/05/20. Has braces) Social History Tobacco Use Types Packs/Day Years [...] PM CDT documented as of this encounter Last Filed Vital Signs Vital Sign Reading Time Taken Comments Blood Pressure 122/56 05/27/2020 2:10 PM CDT Pulse 75 05/27/2020 2:10 PM CDT Temperature - - Respiratory Rate - - Oxygen Saturation 97% 05/27/2020 2:10 PM CDT Inhaled Oxygen Concentration - - Weight 64.1 kg (141 lb 6.4 oz) 05/27/2020 2:10 P M CDT Height - - Body Mass Index - - documented in this encounter Progress Notes * Bunny Savage MD - 05/27/2020 1:40 PM CDT Images from the original note were not included. OFFICE VISIT SUBJECTIVE Reason for Visit: Thumb Pain (Dylan after injections 05/05/20. Has braces) History of Present Illness: Ani Ortiz is a 70-year-old right hand dominant female with clinical diagnosis of arthritic pain along bilateral thumbs MCPJ and left thumb CMCJ, returns for follow up evaluation after undergoing steroid injection on bilateral thumb MCPJ, for reassessment and further treatment recommendations. Patient has no new complaints or acute events to report. Describes no significant changes in activity level. Regarding symptoms, patient reports significant improvement. On her right thumb pain however minimal to no improvement of left thumb pain with ongoing symptoms at MCP and CMC joints. Patient would like to discuss further treatment for her left thumb pain All questions regarding diagnosis and treatment were answered to patient's satisfaction 70-year-old right-hand dominant female presents for evaluation [...] activities of ADLs that involve pinch or window shade estimator, such as opening jars or bottles. Patient has symptoms daily and rates her condition overall as moderate. Patient rates the interference that symptoms impose on ADLs as modertae. She also complains of associated weakness of the window shade estimator. Previous treatments: NSAID's, activity modification. No history [...] Neurological: Negative. Endo/Heme/Allergies: Negative. Psychiatric/Behavioral: Negative. History: No past medical history on file. No past surgical history on file. No family history on file. Social History [...] Allergy Unknown OBJECTIVE Vital Signs: Filed Vitals: 05/27/20 1410 BP: 122/56 Pulse: 75 SpO2: 97% Weight: 64.1 kg (141 lb 6.4 oz) There is no height or weight [...] Justin test negative Hand : Inspection/Palpation: Significant improvement in prior local tenderness on thumb MCPJ associated with + painful lateral stress test. no tenderness, no swelling, no erythema, no induration, no bruising. All muscle compartments soft, no joint effusion present, no deformities noted, no masses present,no arthritic changes. No crepitus hand/fingers on ROM [...] all orders for this visit: Arthritis of carpometacarpal (CMC) joint of left thumb - DRAIN/INJECT SMALL JOINT/BURSA - dexamethasone (DECADRON) injection 4 mg - OXR MINI CHARLEEN GUIDANCE; Future Arthritis of left hand - OXR MINI CHARLEEN GUIDANCE; Future - DRAIN/INJECT SMALL JOINT/BURSA - dexamethasone (DECADRON) injection 4 mg PLAN Treatment/Counselling: Etiology, pathophysiology and natural history [...] steroid injections to bilateral thumb MCPJ. Procedure: FLUOROSCOPIC GUIDED STEROID INJECTION RIGHT THUMB CMC JOINT: The risks, benefits and indications ofsteroid injections including but not limited to infection, bleeding, injury to underlying neurovascular structures, hematoma, seroma, skin pigment discoloration, weakening of surrounding soft tissues, incomplete relief, and eventual need for more definitive surgical intervention were explained to th e patient. Indications: Due to significant narrowing of joint space imaging guide is indicated to allow accurate and atraumatic needle placement, avoiding regional osteophytes and neurovascular structures The patient was in full understanding and wished to proceed with steroid injection at this time. DETAILS: Following sterile precautions, after prepping the site, fluoroscopy image was placed on thumb base site of injection to localize articular space, and guide needle placement for accurate atraumatic procedure. Patient thumb was placed under, gentle manual traction to help open articular space, and Under constant image guide, 25g needle was advanced intra-articularly in atraumatic fashion avoiding osteophytes. 1 cc of lidocaine and 1 cc [...] to resolve. LEFT THUMB MCPJ STEROID INJECTION ??PROCEDURE NOTE: The risks, benefits and indications of steroid injections including but not limited to infection, bleeding, injury to underlying neurovascular structures, hematoma, seroma, skin pigment discoloration, weakening of surrounding soft tissues, incomplete relief, and eventual need for more definitive surgical intervention were explained to the patient. Due to significant narrowing ofjoint space imaging guide is indicated to allow accurate and atraumatic needle placement, avoiding regional osteophytes and neurovascular structures The patient was in full understanding and wished to proceed with steroid injection at this time: , DETAILS: -FLUOROSCOPIC GUIDED STEROID INJECTION LEFT THUMB FINGER MCPJOINT , Following sterile precautions, after prepping the site, fluoroscopic image was placed on thumb site of injection to localize joint space, and guide needle placement for accurate atraumatic procedure. Patient finger was placed under gentle manual traction to help open articular space, and Under constant fluoroscopic image guide, 25g needle was advanced intra-articularly in atraumatic fashion. 1 ccof lidocaine and 1 cc of dexamethasone were injected at the site with sterile precautions uneventfully. The patient tolerated the procedure well. . The injection site was covered with a Band-Aid. Thepatient was informed that they may experience more discomfort in the 24-48 hours following steroid injection after which symptoms of pain and discomfort should begin to resolve. BUNNY SAVAGE MD 05/27/2020 Cc. LUIS ARMANDO STEPHENS Provider MD [place] documented in this encounter Plan of Treatment Scheduled Orders Name Type Priority Associated Diagnoses Orde r Schedule DRAIN/INJECT SMALL JOINT/BURSA Procedures Routine Arthritis of carpometacarpal (CMC) joint of left thumb Ordered: 05/27/2020 DRAIN/INJECT SMALL JOINT/BURSA Procedures Routine Arthritis of left hand Ordered: 05/27/2020 documented as of this encounter Results * OXR MINI CHARLEEN GUIDANCE (05/27/2020 2:58 PM CDT) Anatomical Region Laterality Modality Undefined Fluoroscopy 05/27/2020 3:49 PM CDT Narrative 05/27/2020 3:49 PM CDT This report does not contain a radiologist's interpretation. Please review associated procedure and/or operative report. Procedure Note , Generic Conversion, MD - 05/27/2020 This report does not contain a radiologist's interpretation. Please review associated procedure and/or operative report. us Bunny Savage MD FLUOROSCOPY Final Result documented in this encounter Visit Diagnoses Diagnosis Arthritis of carpometacarpal (CMC) joint of left thumb- Primary Arthritis of left hand Unspecified arthropathy, hand documented in this encounter Care Teams Hog Grader Relationship Specialty Start Date End Date Gabi [place] PA [address] [facility] [address] [place] [address] PCP - General PHYSICIAN ELECTRICAL AND RADIO MECHANIC 05/27/20 documented as of this encounter
--- OUTSIDE RECORDS SUMMARY | 2024-11-08 13:57 | XMS_ITS | Clinical Summary ---
Author Organization [facility] Address [address] [place] [address]. [place], [place] [address] [place] [address] Care Team Providers Care Crude Unit Operator Name Role Phone Gabi [place] Primary Care Provider [phone] Allergies Active Allergy Reactions Criticality Noted Date Comments Cephalexin Unknown 02/19/2019 Erythromycin Unknown 02/19/2019 Penicillin V Unknown 02/19/2019 Shellfish Allergy Unknown 02/19/2019 Medications buPROPion XL 300 MG 24 hr tablet Take 300 mg by mouth every morning. 12/06/2019 Active clonazePAM 1 MG tablet TK 1 T PO NIGHTLY PRF ANXIETY 01/05/2020 Active DULoxetine 60 MG capsule Take 60 mg by mouth daily. 12/06/2019 Active FLUoxetine 40 MG capsule 01/05/2020 Active rosuvastatin 20 MG tablet 02/22/2020 Active zolpidem 10 MG tablet Take 10 mg by mouth nightly as needed. 03/05/2020 Active valACYclovir 1 g tablet 12/31/2018 Active Hospital, Clinic, or Other Facility Administered Medication Ordered Dose Route Frequency Start Date End Date Status dexamethasone (DECADRON) injection 4 mgIndications:Arthritis of left hand 4 mg IM Once 05/05/2020 Active dexamethasone (DECADRON) injection 4 mgIndications:Arthritis of right hand 4 mg IM Once 05/05/2020 Active dexamethasone (DECADRON) injection 4 mgIndications:Arthritis of carpometacarpal (CMC) joint of left thumb 4 mg IM Once 05/27/2020 Active dexamethasone (DECADRON) injection 4 mgIndications:Arthritis of left hand 4 mg IM Once 05/27/2020 Active Active Problems Problem Noted Date Diagnosed Date Bilateral thumb pain 01/05/2020 Overview (05/05/2020): Last Assessment & Plan: This is a significant, separately identifiable problem that was evaluated and managed on the same day as the wellness exam Refer to Ortho hand for further evaluation. No NSAIDs due to renal function. Cigarette smoker 01/05/2020 Overview (05/05/2020): Last Assessment & Plan: Encouraged smoking cessation. Discussed 3 minutes. Reviewed options for assistance with cessation. Reviewed oil heaterman sequela associated with smoking. Pt declines assistance at this time but may contact the office at anytime for further help as they desire. Discussed with patient Lung Cancer screening options with the patient. Encouraged LowDose CT Patient is 69 yo. Is a current smoker or quit in the last 15 years. Has a 40+ years at 1ppd Is currently without any signs or symptoms of lung cancer. Is willing to consider curative lung surgery if needed. [id number] Medicare annual wellness visit, subsequent 01/05 Overview (05/05/2020): Last Assessment & Plan: Encouraged healthy lifestyle, good nutrition and exercise. Encouraged Calcium and Vitamin D and weight bearing exercise for bone health. Reviewed immunizations Reviewed age appropirate screenings. Documentation is on the chart Moderate episode of recurren t major depressive disorder ([facility]) 01/05/2020 Overview (05/05/2020): Last Assessment & Plan: This is a significant, separately identifiable problem that was evaluated and managed on the same day as the wellness exam Still has depression sxs. She feels like it stems from having to have her mother living with her. 4 years ago and although the fall is hard, she feels like she is doing ok regarding grief. Encouraged counseling or seeing the psychiatrist. She declined both. She states over the years she has felt best on the Prozac. Will stop the cymbalta and start Prozac one daily. Continue Wellbutrin and buspar. Using Klonipin prn if needs help with anxiety/sleep at night. Positive depression screening 01/05/2020 Overview (05/05/2020): Last Assessment & Plan: Known depression. See depression for treatment plan BMI 25.0-25.9,adult 10/20/2019 Overview (05/05/2020): Last Assessment & Plan: Weight/BMI is in healthy range. Continue healthy lifestyle to maintain. Osteopenia of left hip 10/20/2019 Overview (05/05/2020): Last Assessment & Plan: Encouraged Calcium, Vit D and Weight bearing exercise. Stop smoking. Recheck DXA in 09/2021 Cough 06/30/2019 Overview (05/05/2020): Last Assessment & Plan: Continue with otc/allergy meds and monitor. If continues thru fall may consider trial PPI Anxiety 02/19/2019 Overview (05/05/2020): Last Assessment & Plan: See depression Anxiety/fear better with the buspar Chronic kidney disease (CKD) , stage III (moderate) ([facility]) 02/19/2019 Overview (05/05/2020): Last Assessment & Plan: Avoid nephrotoxic drugs including NSAIDs. Monitor labs. Cold sore 02/19/2019 Overview (05/05/2020): Last Assessment & Plan: Valtrex prn History of colon polyps 02/19/2019 Overview (05/05/2020): Last Assessment & Plan: Followup colonoscopy ordered. Referral sent to Dr. Quintero. Mixed hyperlipidemia 02/19/2019 Overview (05/05/2020): Last Assessment & Plan: Encouraged patient to continue low fat/low chol diet. Continue exercise. Increase good fats in the diet. Monitor labs as needed. Continue crestor Other fatigue 02/19/2019 Overview (05/05/2020): Last Assessment & Plan: Probably multifactorial. Check labs and followup to re-evaluate Other insomnia 02/19/2019 Overview (05/05/2020): Last Assessment & Plan: Continue ambien prn Tremor 02/19/2019 Immunizations Name Administration Dates Next Due Fluad influenza vaccine, Carlos drivalent (aIIV4), Inactivated, adjuvanted, preservative free, 0.5 mL,IM use 08/19/2018,11/15/2017 Fluzone High Dose - >Age 65 (Prefilled Syringe) 08/07/2019 Influenza Adult (Generic) 08/12/2018 Pneumococcal (Pneumovax 23) 08/25/2019 Pneumococcal (Prevnar 13) 08/19/2018 Social History Tobacco Use Types Packs/Day Years Used Date Smoking Tobacco: Never Assessed Comments Unknown Sex and Gender Information Value Date Recorded Sex Assigned at Not on file Legal Sex Female 9:39 AM CDT Gender Identity Not on file Sexual Orientation Not on file Last Filed Vital Signs Vital Sign Reading Time Taken Comments Blood Pressure 122/56 05/27/2020 2:10 PM CDT Pulse 75 05/27/2020 2:10 PM CDT Temperature - - Respiratory Rate - - Oxygen Saturation 97% 05/27/2020 2:10 PM CDT Inhaled Oxygen Concentration - - Weight 64.1 kg (141 lb 6.4 oz) 05/27/2020 2:10 P M CDT Height - - Body Mass Index - - Plan of Treatment Health Maintenance Due Date Last Done Comments Colorectal Cancer Screening Colonoscopy (10 Years) 1952 Hepatitis C 1970 DTaP, Tdap and Td Vaccines (1 - Tdap) 1971 Mammogram Screening 1992 Zoster Vaccines (1 of 2) 2002 Annual Medicare Wellness Visit 2017 Dexa Scan (General) 2017 COVID-19 Vaccine ( - 2023- season) 2024 Influenza Adult (#1) 2024 08/07/2019, 08/19/2018, 08/12/2018, Additional history exists RSV Immunization or 60+ Years (1 - 1-dose 75+ series) 2027 Pneumococcal Vaccine: 65+ Years Completed 08/25/2019, 08/19/2018 Meningococcal Vaccine Aged Out No nidhi aleksander eligible based on patient's age to complete this topic RSV Immunizations Under 20 Months Aged Out No longer eligible based on patient's age to complete this topic Insurance GENERIC - COMMERCIAL [place] [place] [id number] Care Teams Crude Unit Operator Relationship Specialty Start Date End Date Gabi [place] PA [address] [place] [address] PCP - General PHYSICIAN PT SITTER 05/27/20
--- OUTSIDE RECORDS SUMMARY | 2024-11-08 13:57 | XMS_ITS | Encounter Summary ---
Author Organization [facility] Address [address] [place] [address]. [place] [address] [place] [address] Care Team Providers Care Yeast Washer Name Role Phone None, Provider Primary Care Provider Vladimira ble Encounter Details Date Type Department Care Team (Late st Contact Info) Description 05/05/2020 Orders Only [facility] Medical [facility] Multispecialty Care - [facility] [address] [facility], [address] [place] [id number] Bunny Savage MD [address] [place] [id number] Social History Tobacco Use Types Packs/Day Years [...] on file documented as of this encounter Results * OXR RT HAND M3V (05/05/2020 11:04 AM CDT) Anatomical Region Laterality Modality Radiographic Juanis ging Narrative 05/06/2020 10:57 AM CDT PROCEDURE: OXR LT HAND M3V VIEWS: 3 DATE: ??05/05/20 CLINICAL INDICATION: pain FINDINGS: X-ray review: Alignment within normal limits, No gross deformities, no soft tissue abnormalities, lesions or gas. No bony tumors or lesions. No acute fracture, mild diffuse arthritic changes. ?? IMPRESSION: X-ray review: Alignment within normal limits, No gross deformities, no soft tissue abnormalities, lesions or gas. No bony tumors or lesions. No acute fracture, mild diffuse arthritic changes. us Bunny Savage MD GENERAL IMAGING Final Result * OXR LT HAND M3V (05/05/2020 11:03 AM CDT) Anatomical Region Laterality Modality Radiographic Juanis ging Narrative 05/06/2020 10:57 AM CDT PROCEDURE: OXR LT HAND M3V VIEWS: 3 DATE: ??05/05/20 CLINICAL INDICATION: pain FINDINGS: X-ray review: Alignment within normal limits, No gross deformities, no soft tissue abnormalities, lesions or gas. No bony tumors or lesions. No acute fracture, mild diffuse arthritic changes. ?? IMPRESSION: X-ray review: Alignment within normal limits, No gross deformities, no soft tissue abnormalities, lesions or gas. No bony tumors or lesions. No acute fracture, mild diffuse arthritic changes. us Bunny Savage MD GENERAL IMAGING Final Result documented in this encounter Visit Diagnoses Diagnosis Bilateral thumb pain- Primary documented in this encounter Care Teams Yeast Washer Relationship Specialty Start Date End Date None, Provider, PCP - General 03/28/17 05/06/20 documented as of this encounter
--- OUTSIDE RECORDS SUMMARY | 2024-11-08 13:57 | XMS_ITS | Encounter Summary ---
Author Organization [facility] Address [address] [place] [address]. [place], [place] [address] [place] [address] Care Team Providers Care Procurement Coordinator Name Role Phone None, Provider Primary Care Provider Vladimira ble Encounter Details Date Type Department Care Team (Latest Contact Info) Description 05/28/2019 9:40 AM CDT - 05/28/2019 11:59 PM CDT Hospital Encounter [facility] [address] [facility] [address] [place] [address] Discharge Disposition: Home or Self Care (Routine Discharge) Social History Tobacco Use Types Packs/Day Years Used Date Smoking Tobacco: Never Assessed Comments Unknown Sex and Gender Information Value Date Recorded Sex Assigned at Not on file Legal Sex Female 9:39 AM CDT Gender Identity Not on file Sexual Orientation Not on file documented as of this encounter Medications at Time of Discharge Medication Sig Dispense Quantity Refills Last Filled Start D ate End Date valACYclovir 1 g tablet 12/31/2018 documented as of this encounter Plan of Treatment Not on file documented as of this encounter Procedures Procedure Name Priority Date/Time Associated Diagnosis Comments TISSUE EXAM BY PATHOLOGIST Routine 05/28/2019 12:00 AM CDT documented in this encounter Results * TISSUE EXAM BY PATHOLOGIST (05/28/2019 12:00 AM CDT) PATHOLOGY ?[facility] ? Department of Pathology ? [address] ? [place], [place] ??[address] ? [id number] ? Pathology Report ? Name: ISIDORO, ANI ? Specimen #: [id number] Age: 5 1950 (Age: 69) ?Location: [facility] Sex: F ? Procedure Date: 05/28/2019 Hospital #: [id number] ? Date Received: 05/29/2019 Date Reported: 05/30/2019 Provider: AB MON Gross Description: The specimen is received in formalin labeled with the patient's name (Ani Ortiz), (1950), and #1 rectal polyp. ??The specimen consists of two pink-mckeon, soft, polypoid tissue fragments, each measuring 0.3 cm in greatest dimension. ??The specimen is entirely submitted intact in one cassette. Microscopic Description: Deeper levels are examined and no adenomatous change is seen. FINAL PATHOLOGIC DIAGNOSIS: RECTAL POLYP, BIOPSY: ? HYPERPLASTIC POLYP ?? NERY MORELOS ??Pathologist /05/30/2019 Electronicall y Signed Out ? [facility] 05/28/2019 05/29/2019 9:5 2 AM CDT Comment:POLYP, RECTAL us Ab Mon MD PATHOLOGY/CYTOLOGY ORDERABL ES Final Result [facility] [address] [place] [address], [place] [phone] documented in this encounter Visit Diagnoses Not on filedocumented in this encounter Care Teams Procurement Coordinator Relationship Specialty Start Date End Date None, Provider, PCP - General 03/28/17 05/06/20 documented as of this encounter
--- OUTSIDE RECORDS SUMMARY | 2024-11-08 13:58 | XMS_ITS | Encounter Summary ---
Author Organization [facility] Healthcare Address [address] [place] [address] Care Team Providers Care Open Hearth Door Liner Name Role Phone Gabi Victoria Primary Care Provider [phone]- [phone] Reason for Referral * Diagnostic Imaging (Routine) - Authorized Specialty Diagnoses / Procedures Referred By Contac t Referred To Contact Diagnoses Breast cancer screening by mammogram Procedures Screening Mammogram Bilateral W Damien Gabi Victoria PA [address] [facility] [address] [place] [address] Phone: tel: fax: External Order Referral ID Status Reason Start Date Expiration Date V isits Requested Visits Authorized [id number] Authorized 07/28/2024 08/27/2025 1 1 Encounter Details Date Type Department Care Team (Late st Contact Info) Description 07/28/2024 Orders Only [facility] Family Medicine [address] [place] [address] Gabi Victoria PA [address] [facility] [address] [place] [address] Breast cancer screening by mammogram (Primary Dx) Social History Tobacco Use Types Packs/Day Years Used Date Smoking Tobacco: Former Cigarettes 1 20 0 04/09/1997 - 04/09/2017 Vaping Smokeless Tobacco: Never Alcohol Use Standard Drinks/Week Comments Yes 0 (1 standard drink = 0.6 oz pur e alcohol) Rarely AUDIT-C Answer Date Recorded Q1: How often do you have a drink containing alc ohol? Monthly or less 03/03/2024 Q2: How many drinks containi ng alcohol do you have on a typical day when you are drinking? 1 or 2 03/03/2024 Q3: How often do you have si x or more drinks on one occasion? Never 03/03/2024 PHQ-2 Answer Date Recorded PHQ-2 Total Score 0 03/03/2024 Comments Unknown Sex and Gender Information Value Date Recorded Sex Assigned at Not on file Legal Sex Female 12:08 AM CLASS A LINEMAN Gender Identity Not on file Sexual Orientation Not on file Occupation Industry Job Start Date Job End Date Retired Not on file Not on file Not on file documented as of this encounter Progress Notes * Yeimi Cordoba LPN - 07/28/2024 1:20 PM CDT Order placed per patient request. documented in this encounter Miscellaneous Notes * Result Encounter Note - Gabi Victoria PA - 07/29/2024 4:14 PM CDT Let pt know her mammogram is normal and will plan to repeat in 1 year. documented in this encounter Plan of Treatment Not on file documented as of this encounter Procedures Procedure Name Priority Date/Time Associated Diagnosis Comments SCREENING MAMMOGRAM BILATERAL W DAMIEN Schedule Routine, Read Routine (OP Routine) 07/29/2024 3:15 PM CDT Breast cancer screening by mammogram documented in this encounter Results * Screening Mammogram Bilateral W Damien (07/29/2024 3:15 PM CDT) Anatomical Region Laterality Modality Breast Bilateral Mammography us Gabi DURÁN IMG MAMMO PROCEDURES Final Result documented in this encounter Visit Diagnoses Diagnosis Breast cancer screening by mammogram- Primary documented in this encounter Care Teams Open Hearth Door Liner Relationship Specialty Start Date End Date Gabi Victoria PA [address] [facility] [address] [place] [address] PCP - General Internal Medicine 02/19/19 documented as of this encounter
--- OUTSIDE RECORDS SUMMARY | 2024-11-08 13:58 | XMS_ITS | Encounter Summary ---
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 Gender Identity Not on file Sexual Orientation Not on file Occupation Industry Job Start Date Job End Date Retired Not on file Not on file Not on file documented as of this encounter Plan of Treatment Not on file documented as of this encounter Procedures Procedure Name Priority Date/Time Associated Diagnosis Comments SCAN - LABS 05/30/2024 9:19 PM CDT documented in this encounter Results * SCAN - LABS (05/30/2024 9:19 PM CDT) us Provider Scanning Final Result documented in this encounter Visit Diagnoses Not on filedocumented in this encounter Care Teams City Route Driver Relationship Specialty Start Date End Date Gabi Victoria PA [address] [place] [address] PCP - General Internal Medicine 02/19/19 documented as of this encounter
--- OUTSIDE RECORDS SUMMARY | 2024-11-08 13:58 | XMS_ITS | Encounter Summary ---
Author Organization [facility] Healthcare Address [address] [place] [address] Care Team Providers Care Sonar Subsystem Equipment Operator Name Role Phone Gabi Victoria Primary Care Provider +1- [phone] Reason for Referral * Procedure (Routine) - Authorized Specialty Diagnoses / Procedures Referred By Contaren t Referred To Contact Diagnoses Rotator cuff tear arthropathy, left Bilateral shoulder pain, unspecified chronicity Procedures Large Joint (Hip, Knee, Shoulder) Injection: bilateral glenohumeral Lawson Hassan MD [address] [place] [address] [address] [place] [address] Phone: tel: fax: [facility] Referral ID Status Reason Start Date Expiration Date V isits Requested Visits Authorized [id number] Authorized 09/18/2024 10/18/2025 1 1 ICAL RESEARCH TECHNICIAN Reason for Visit * Reason Comments Pain Injections Pain Injections Encounter Details Date Type Department Care Team (Late st Contact Info) Description 09/18/2024 11:15 AM CLINICAL RESEARCH TECHNICIAN Office Visit [facility] Orthopedics and Sports Medicine [address] [place] [address] [address] [place] [id number] Lawson Hassan MD [address] [place] [address] [address] [place] [id number] Rotator cuff tear arthropathy, left (Primary Dx); Bilateral shoulder pain, unspecified chronicity Social History Tobacco Use Types Packs/Day Years [...] PHQ-2 Answer Date Recorded PHQ-2 Total Score (If total score is 3 or more points, staff should administer the PHQ-9) 0 09/02/2024 Comments Unknown Sex and Gender Information Value Date Recorded Sex Assigned at Not on file Legal Sex Female 12:08 AM CLINICAL RESEARCH TECHNICIAN Gender Identity Not on file Sexual Orientation Not on file Occupation Industry Job Start Date Job End Date Retired Not on file Not on file Not on file documented as of this encounter Last Filed Vital Signs Vital Sign Reading Time Taken Comments Blood Pressure - - Pulse - - Temperature - - Respiratory Rate - - Oxygen Saturation - - Inhaled Oxygen Concentration - - Weight 64.9 kg (143 lb) 09/18/2024 11:43 AM CLINICAL RESEARCH TECHNICIAN Height 157.5 cm (5' 2 ) 09/18/2024 11:43 AM CLINICAL RESEARCH TECHNICIAN Body Mass Index 26.16 09/18/2024 11:43 AM CLINICAL RESEARCH TECHNICIAN documented in this encounter Progress Notes * Lawson Hassan MD - 09/18/2024 11:15 AM CSTAssociated Order(s): Large Joint (Hip, Knee, Shoulder) Injection: bilateral glenohumeral Post-Procedure Diagnose(s): Rotator cuff tear arthropathy, left; Bilateral shoulder pain, unspecified chronicity VISIT DATE: 09/18/2024 CHIEF COMPLAINT Pain and Injections of the Right Shoulder and Pain and Injections of the Left Shoulder HISTORY OF PRESENT ILLNESS History of Present Illness The patient presents with bilateral shoulder pain, seeking stronger treatment options. She reports that the pain is limiting her ability to enjoy playing pickleball, a sport she refuses to give up despite the discomfort. The patient also mentions a previous ankle injury, which she sustained while playing the sport. She continues to wear a brace on the ankle due to persistent issues with the tendons, despite the bones having healed. The patient also reports having osteopenia in her hip, which has improved with weight-bearing exercises such as pickleball. MEDICATIONS She has a current medication list which includes the following prescription(s): bupropion xl, buspirone, clonazepam, cyanocobalamin, fluticasone propionate, omeprazole, ondansetron odt, rosuvastatin,tamsulosin, trintellix, valacyclovir, vit d3-vit x-[id number]-xnnk, zolpidem, albuterol hfa, and aspirin. ALLERGIES She is allergic to cephalexin, cephalosporins, penicillin v potassium, shellfish, and erythromycin. SOCIAL HISTORY reports that she quit smoking about 7 years ago. Her smoking use included cigarettes and vaping. She started smoking about 27 years ago. She has a 20 pack-year smoking history. She has never used smokeless tobacco. She reports that she does not use drugs. Patient reports consuming alcoholic drinks monthly or less, with a daily consumption of drinks. Patient denies daily consumption of 6 or more alcoholic drinks at one occasion. PHYSICAL EXAM Physical Exam Skin intact over both shoulders There are no diagnoses linked to this encounter. ASSESSMENT 73 y.o. female with left shoulder rotator cuff tear arthropathy 2. Mild right shoulder osteoarthritis 3. Hx of left shoulder arthroscopic debridement with high grade chondral wear and likely infraspinatus tendon tear Assessment & Plan Shoulder Pain Patient reports pain in both shoulders, more severe in the right. Discussed limitations of treatment options for shoulder pain, with cortisone injections being the primary option. Patient is an active pickleball player. -Administered cortisone injections in both shoulders. -Advised patient that she should be able to resume playing pickleball tomorrow. Large Joint (Hip, Knee, Shoulder) Injection: bilateral glenohumeral Performed by: Lawson Hassan MD Authorized by: Lawson Hassan MD Large Joint Injection/Aspiration: Consent Given by: Patient Written consent obtained: Yes Supporting Documentation: Indications: Pain Procedure Details: Location: Shoulder Site: Bilateral glenohumeral Prep: patient was prepped using a clean technique Needle Size: 25 G Medications Right Large Joint Injection: 2 mL lidocaine 10 mg/mL (1 %); 40 mg triamcinolone 40 mg/mL Medications Left Large Joint Injection: 2 mL lidocaine 10 mg/mL (1 %); 40 mg triamcinolone 40 mg/mL Patient tolerance: Patient tolerated the procedure well with no immediate complications Lawson Hassan MD ICAL RESEARCH TECHNICIAN documented in this encounter Plan of Treatment Not on file documented as of this encounter Procedures Procedure Name Priority Date/Time Associated Diagnosis Comments IA ARTHROCENTESIS ASPIR&/INJ MAJOR JT/BURSA W/O US Routine 09/18/2024 11:15 AM CLINICAL RESEARCH TECHNICIAN Rotator cuff tear arthropathy, left Bilateral shoulder pain, unspecified chronicity documented in this encounter Results * IA ARTHROCENTESIS ASPIR&/INJ MAJOR JT/BURSA W/O US (09/18/2024 11:15 AM CLINICAL RESEARCH TECHNICIAN) Narrative Lawson Hassan MD - 09/18/2024 11:15 AM CLINICAL RESEARCH TECHNICIAN Lawson Hassan MD ? 09/18/2024 12:36 PM Large Joint (Hip, Knee, Shoulder) Injection: bilateral glenohumeral Performed by: Lawson Hassan MD Authorized by: Lawson Hassan MD ?? Large Joint Injection/Aspiration: ??Consent Given by: ??Patient ??Written consent obtained: Yes ?? Supporting Documentation: ??Indications: ??Pain Procedure Details: ??Location: ??Shoulder ??Site: ??Bilateral glenohumeral ??Prep: patient was prepped using a clean technique ?Needle Size: ??25 G ??Medications Right Large Joint Injection: ??2 mL lidocaine 10 mg/mL (1 %); 40 mg triamcinolone 40 mg/mL ??Medications Left ??Large Joint Injection: ??2 mL lidocaine 10 mg/mL (1 %); 40 mg triamcinolone 40 mg/mL ??Patient tolerance: ??Patient tolerated the procedure well with no immediate complications Lawson Hassan MD IN CLINIC/BEDSIDE ORDERABL ES Final Result documented in this encounter Visit Diagnoses Diagnosis Rotator cuff tear arthropathy, left- Primary Bilateral shoulder pain, unspecified chronicity documented in this encounter Administered Medications Inactive Administered Medications - up to 3 most recent administrations Medication Order MAR Action Action Date Dose Rate Site lidocaine (XYLOCAINE) 10 mg/mL (1 %) injection 2 mL 2 mL, One-Time Injection, Starting on Lucille 09/18/24 at 1115, For 1 dose, Indications: Administration of Local AnesthesiaIndications:Administrati on of Local Anesthesia Given 09/18/2024 11:15 AM CLINICAL RESEARCH TECHNICIAN 2 mL lidocaine (XYLOCAINE) 10 mg/mL (1 %) injection 2 mL 2 mL, One-Time Injection, Starting on Lucille 09/18/24 at 1115, For 1 dose, Indications: Administration of Local AnesthesiaIndications:Administrati on of Local Anesthesia Given 09/18/2024 11:15 AM CLINICAL RESEARCH TECHNICIAN 2 mL triamcinolone (KENALOG) 40 mg/mL injection 40 mg 40 mg, intra-articular, One-Time Injection, Starting on Lucille 09/18/24 at 1115, For 1 doseIndications:Rotator cuff tear arthropathy, left,Bilateral shoulder pain, unspecified chronicity Given 09/18/2024 11:15 AM CLINICAL RESEARCH TECHNICIAN 40 mg triamcinolone (KENALOG) 40 mg/mL injection 40 mg 40 mg, intra-articular, One-Time Injection, Starting on Lucille 09/18/24 at 1115, For 1 doseIndications:Rotator cuff tear arthropathy, left,Bilateral shoulder pain, unspecified chronicity Given 09/18/2024 11:15 AM CLINICAL RESEARCH TECHNICIAN 40 mg documented in this encounter Care Teams Sonar Subsystem Equipment Operator Relationship Specialty Start Date End Date Gabi Victoria PA [address] [address] PCP - General Internal Medicine 02/19/19 documented as of this encounter
--- OUTSIDE RECORDS SUMMARY | 2024-11-08 13:58 | XMS_ITS | Encounter Summary ---
Author Organization [facility] Address [address] [place] [address] Care Team Providers Care Manual Plate Filler Name Role Phone Gbai Victoria Primary Care Provider [phone]- [phone] Reason for Referral * Procedure (Routine) - Pending Review Specialty Diagnoses / Procedures Referred By Contac t Referred To Contact Diagnoses Localized osteoarthritis of hand, unspecified laterality Procedures Small Joint (Foot, Fingers, Toes) Injection: L index MCP Vianey Warren PA [address] [facility] [address] [place] [address] Phone: tel: fax: [facility] Referral ID Status Reason Start Date Expiration Date V isits Requested Visits Authorized [id number] Pending Review 01/24/2024 02/22/2025 1 1 * Procedure (Routine) - Pending Review Specialty Diagnoses / Procedures Referred By Contac t Referred To Contact Diagnoses Localized osteoarthritis of hand, unspecified laterality Procedures Small Joint (Foot, Fingers, Toes) Injection: R index MCP Vianey Warren PA [address] [facility] [address] [place] [id number] Phone: tel: fax: [facility] Referral ID Status Reason Start Date Expiration Date V isits Requested Visits Authorized [id number] Pending Review 01/24/2024 02/22/2025 1 1 * Procedure (Routine) - Pending Review Specialty Diagnoses / Procedures Referred By Contac t Referred To Contact Diagnoses Localized osteoarthritis of hand, unspecified laterality Procedures Small Joint (Foot, Fingers, Toes) Injection: R thumb MCP Vianey Warren PA [address] [place] [address] DR [address] [place], [place] [id number] Phone: tel: fax: [facility] Referral ID Status Reason Start Date Expiration Date V isits Requested Visits Authorized [id number] Pending Review 01/24/2024 02/22/2025 1 1 * Procedure (Routine) - Pending Review Specialty Diagnoses / Procedures Referred By Contac t Referred To Contact Diagnoses Localized osteoarthritis of hand, unspecified laterality Procedures Small Joint (Foot, Fingers, Toes) Injection: left thumb MCP Vianey Warren PA [address] [place] [address] [place] [address] Phone: tel: fax: [facility] Referral ID Status Reason Start Date Expiration Date V isits Requested Visits Authorized [id number] Pending Review 01/24/2024 02/22/2025 1 1 * Diagnostic Imaging (Routine) - Closed Specialty Diagnoses / Procedures Referred By Contac t Referred To Contact Diagnoses Bilateral hand pain Procedures XR Hand Left 3 or More Views Vianey Warren PA [address] [place] [address] [place] [address] Phone: tel: fax: [address] [phone] Referral ID Status Reason Start Date Expiration Date Visits Re quested Visits Authorized [id number] Closed 01/24/2024 02/22/2025 1 1 * Diagnostic Imaging (Routine) - Closed Specialty Diagnoses / Procedures Referred By Contac t Referred To Contact Diagnoses Bilateral hand pain Procedures XR Hand Right 3 or More Views Vianey Warren PA [address] [place] [address] [address] [place] [address] Phone: tel: fax: [facility] [address] [place] [address] Referral ID Status Reason Start Date Expiration Date Visits Re quested Visits Authorized [id number] Closed 01/24/2024 02/22/2025 1 1 Reason for Visit * Reason Comments Follow-up Follow-up Encounter Details Date Type Department Care Team (Late st Contact Info) Description 01/24/2024 10:00 AM CDT Office Visit [facility] Hand Surgery [address] [place] [address] [place] [phone] Vianey Warren PA [address] [place] [address] [address] [place] [phone] Bilateral hand pain (Primary Dx); Localized osteoarthritis of hand, unspecified laterality Social History Tobacco Use Types Packs/Day Years Used Date Smoking Tobacco: Former Cigarettes 1 20 0 04/09/1997 - 04/09/2017 Vaping Smokeless Tobacco: Never Alcohol Use Standard Drinks/Week Comments Yes 0 (1 standard drink = 0.6 oz pur e alcohol) Rarely AUDIT-C Answer Date Recorded Q1: How often do you have a drink containing alc ohol? Monthly or less 08/14/2023 Q2: How many drinks containi ng alcohol do you have on a typical day when you are drinking? 1 or 2 08/14/2023 Q3: How often do you have si x or more drinks on one occasion? Less than monthly 08/14/2023 PHQ-2 Answer Date Recorded PHQ-2 Total Score (If total score is 3 or more points, staff should administer the PHQ-9) 0 09/25/2023 Comments Unknown Sex and Gender Information Value Date Recorded Sex Assigned at Not on file Legal Sex Female 12:08 AM [employer]OR [employer]PER[employer]OR Gender Identity Not on file Sexual Orientation Not on file Occupation Industry Job Start Date Job End Date Retired Not on file Not on file Not on file documented as of this encounter Progress Notes * Vianey Warren PA - 01/24/2024 10:00 AM CDTAssociated Order(s): Small Joint (Foot, Fingers, Toes) Injection: left thumb MCP; Small Joint (Foot, Fingers, Toes) Injection: R thumb MCP; Small Joint (Foot, Fingers, Toes) Injection: R index MCP; Small Joint (Foot, Fingers, Toes) Injection: L index MCP Post-Procedure Diagnose(s): Localized osteoarthritis of hand, unspecified laterality Images from the original note were not included. Patient ID: Ani Ortiz is a 73 y.o. female. Visit Date: 01/24/2024 Chief Complaint: No chief complaint on file. HPI: Patient is a 73-year-old female presents today with bilateral hand pain. She has a history of bilateral thumb MCP and CMC osteoarthritis. She last received injections 4 months ago of bilateral thumb MCP and CMC joints. She states that over the last couple of weeks she has had recurrent pain to boththumb MCP joints, and bilateral index MCP joints. She denies recent injury. She is requesting repeat injections. Physical Exam: General: A&O x 3, NAD, Well appearing Eyes: EOMs intact. PERRL. Integument: skin is warm and dry. Neuro: CN II-XII grossly intact. Pt gait is stable, balance WNL. Sensation intact. Cardiovascular: 2+ capillary refill to all upper digits bilaterally. On examination of both upper extremities she has mild tenderness with palpation over bilateral thumb MCP joints, as well as bilateral index MCP joints. There is no tenderness over the A1 pulleys, no triggering is appreciated. She is nontender today over bilateral CMC joints. She is able to achieve full active composite flexion extension of both hands without difficulty. She is neurovascularly intact to tips of digits. X-rays/Imagin. Bilateral hand pain Assessment/Plan Diagnoses and all orders for this visit: Bilateral hand pain (Primary) - XR Hand Right 3 or More Views; Future - XR Hand Left 3 or More Views; Future Treatment / Plan: Patient presents with bilateral hand pain. She has a history of bilateral thumb osteoarthritis, no complaints of pain to both index MCP joints. I recommended that we get baseline x-rays of both handstoday. We also discussed treatment options to include [id number] analgesics and repeat corticosteroid injections. She would like to proceed with injections, which I have given her. She will follow up as needed, and I have asked her to call the office with any questions or concerns. Small Joint (Foot, Fingers, Toes) Injection: left thumb MCP Performed by: Vianey Warren PA Authorized by: Vianey Warren PA Small Joint Injection/Aspiration: Consent Given by: Patient Verbal consent obtained?: Yes Written consent obtained?: No Supporting Documentation: Indications: Pain Procedure Details: Location: Thumb Site: Left thumb MCP Prep: patient was prepped and draped in usual sterile fashion Needle Size: 27 G Approach: Dorsal Ultrasound guidance: No Medications: 1 mL lidocaine 10 mg/mL (1 %); 5 mg triamcinolone 40 mg/mL Patient tolerance: Patient tolerated the procedure well with no immediate complications Small Joint (Foot, Fingers, Toes) Injection: R thumb MCP Performed by: Vianey aWrren PA Authorized by: Vianey Warren PA Small Joint Injection/Aspiration: Consent Given by: Patient Verbal consent obtained?: Yes Written consent obtained?: No Supporting Documentation: Indications: Pain Procedure Details: Location: Thumb Site: R thumb MCP Prep: patient was prepped and draped in usual sterile fashion Needle Size: 27 G Approach: Dorsal Ultrasound guidance: No Medications: 1 mL lidocaine 10 mg/mL (1 %); 5 mg triamcinolone 40 mg/mL Patient tolerance: Patient tolerated the procedure well with no immediate complications Small Joint (Foot, Fingers, Toes) Injection: R index MCP Performed by: Vianey Warren PA Authorized by: Vianey Warren PA Small Joint Injection/Aspiration: Consent Given by: Patient Verbal consent obtained?: Yes Written consent obtained?: No Supporting Documentation: Indications: Pain Procedure Details: Location: Index finger Site: R index MCP Prep: patient was prepped and draped in usual sterile fashion Needle Size: 27 G Approach: Dorsal Ultrasound guidance: No Medications: 1 mL lidocaine 10 mg/mL (1 %); 5 mg triamcinolone 40 mg/mL Patient tolerance: Patient tolerated the procedure well with no immediate complications Small Joint (Foot, Fingers, Toes) Injection: L index MCP Performed by: Vianey Warren PA Authorized by: Vianey Warren PA Small Joint Injection/Aspiration: Consent Given by: Patient Verbal consent obtained?: Yes Written consent obtained?: No Supporting Documentation: Indications: Pain Procedure Details: Location: Index finger Site: L index MCP Prep: patient was prepped and draped in usual sterile fashion Needle Size: 27 G Approach: Dorsal Ultrasound guidance: No Medications: 1 mL lidocaine 10 mg/mL (1 %); 5 mg triamcinolone 40 mg/mL Patient tolerance: Patient tolerated the procedure well with no immediate complications LUIS ARMANDO Cintron documented in this encounter Plan of Treatment Not on file documented as of this encounter Procedures Procedure Name Priority Date/Time Associated Diagnosis Comments AR ARTHROCENTESIS ASPIR&/INJ SMALL JT/BURSA W/O US Routine 01/24/2024 10:00 AM CDT Localized osteoarthritis of hand, unspecified laterality AR ARTHROCENTESIS ASPIR&/INJ SMALL JT/BURSA W/O US Routine 01/24/2024 10:00 AM CDT Localized osteoarthritis of hand, unspecified laterality AR ARTHROCENTESIS ASPIR&/INJ SMALL JT/BURSA W/O US Routine 01/24/2024 10:00 AM CDT Localized osteoarthritis of hand, unspecified laterality AR ARTHROCENTESIS ASPIR&/INJ SMALL JT/BURSA W/O US Routine 01/24/2024 10:00 AM CDT Localized osteoarthritis of hand, unspecified laterality documented in this encounter Results * AR ARTHROCENTESIS ASPIR&/INJ SMALL JT/BURSA W/O US (01/24/2024 10:00 AM CDT) Narrative Vianey Warren PA - 01/24/2024 10:00 AM CDT Vianey Warren PA ? 01/24/2024 10:57 AM Small Joint (Foot, Fingers, Toes) Injection: L index MCP Performed by: Vianey Warren PA Authorized by: Vianey Warren PA ?? Small Joint Injection/Aspiration: ??Consent Given by: ??Patient ??Verbal consent obtained?: Yes ?Written consent obtained?: No ?? Supporting Documentation: ??Indications: ??Pain Procedure Details: ??Location: ??Index finger ??Site: ??L index MCP ??Prep: patient was prepped and draped in usual sterile fashion ?Needle Size: ??27 G ??Approach: ??Dorsal ??Ultrasound guidance: No ?Medications: ??1 mL lidocaine 10 mg/mL (1 %); 5 mg triamcinolone 40 mg/mL ??Patient tolerance: ??Patient tolerated the procedure well with no immediate complications us Vianey [facility]/BEDSIDE ORDERABLES F inal Result * AR ARTHROCENTESIS ASPIR&/INJ SMALL JT/BURSA W/O US (01/24/2024 10:00 AM CDT) Narrative Vianey Warren PA - 01/24/2024 10:00 AM CDT Vianey Warren PA ? 01/24/2024 10:57 AM Small Joint (Foot, Fingers, Toes) Injection: R index MCP Performed by: Vianey Warren PA Authorized by: Vianey Warren PA ?? Small Joint Injection/Aspiration: ??Consent Given by: ??Patient ??Verbal consent obtained?: Yes ?Written consent obtained?: No ?? Supporting Documentation: ??Indications: ??Pain Procedure Details: ??Location: ??Index finger ??Site: ??R index MCP ??Prep: patient was prepped and draped in usual sterile fashion ?Needle Size: ??27 G ??Approach: ??Dorsal ??Ultrasound guidance: No ?Medications: ??1 mL lidocaine 10 mg/mL (1 %); 5 mg triamcinolone 40 mg/mL ??Patient tolerance: ??Patient tolerated the procedure well with no immediate complications us Vianey [facility]/BEDSIDE ORDERABLES F inal Result * AR ARTHROCENTESIS ASPIR&/INJ SMALL JT/BURSA W/O US (01/24/2024 10:00 AM CDT) Narrative Vianey Warren PA - 01/24/2024 10:00 AM CDT Vianey Warren PA ? 01/24/2024 10:57 AM Small Joint (Foot, Fingers, Toes) Injection: R thumb MCP Performed by: Vianey Warren PA Authorized by: Vianey Warren PA ?? Small Joint Injection/Aspiration: ??Consent Given by: ??Patient ??Verbal consent obtained?: Yes ?Written consent obtained?: No ?? Supporting Documentation: ??Indications: ??Pain Procedure Details: ??Location: ??Thumb ??Site: ??R thumb MCP ??Prep: patient was prepped and draped in usual sterile fashion ?Needle Size: ??27 G ??Approach: ??Dorsal ??Ultrasound guidance: No ?Medications: ??1 mL lidocaine 10 mg/mL (1 %); 5 mg triamcinolone 40 mg/mL ??Patient tolerance: ??Patient tolerated the procedure well with no immediate complications us Vianey [facility]/BEDSIDE ORDERABLES F inal Result * AR ARTHROCENTESIS ASPIR&/INJ SMALL JT/BURSA W/O US (01/24/2024 10:00 AM CDT) Narrative Vianey Warren PA - 01/24/2024 10:00 AM CDT Vianey Warren PA ? 01/24/2024 10:57 AM Small Joint (Foot, Fingers, Toes) Injection: left thumb MCP Performed by: Vianey Warren PA Authorized by: Vianey Warren PA ?? Small Joint Injection/Aspiration: ??Consent Given by: ??Patient ??Verbal consent obtained?: Yes ?Written consent obtained?: No ?? Supporting Documentation: ??Indications: ??Pain Procedure Details: ??Location: ??Thumb ??Site: ??Left thumb MCP ??Prep: patient was prepped and draped in usual sterile fashion ?Needle Size: ??27 G ??Approach: ??Dorsal ??Ultrasound guidance: No ?Medications: ??1 mL lidocaine 10 mg/mL (1 %); 5 mg triamcinolone 40 mg/mL ??Patient tolerance: ??Patient tolerated the procedure well with no immediate complications us Vianey [facility]/BEDSIDE ORDERABLES F inal Result * XR Hand Left 3 or More Views (01/24/2024 9:58 AM CDT) Anatomical Region Laterality Modality Upper Extremities, Hand Left Computed Radiography 01/24/2024 8:55 PM CDT Narrative 01/24/2024 8:57 PM CDT EXAM DESCRIPTION: XR HAND LEFT 3 OR MORE VIEWS; XR HAND RIGHT 3 OR MORE VIEWS REASON FOR STUDY: Bilateral hand pain Increased general hand pain for 2 years, no injury ? FINDINGS: Three views submitted without comparison. Left hand: There are no erosions. ??There are no fractures. ??There is mild triscaphe and basal thumb joint osteoarthritis. ??There is polyarticular interphalangeal joint osteoarthritis. ??There is no dorsal wrist soft tissue swelling. Right hand: There are no erosions. ??There are no fractures. ??There is mild triscaphe and basal arthritis. ??There is polyarticular interphalangeal joint osteoarthritis. There is no dorsal wrist soft tissue swelling. IMPRESSION: No radiographic evidence of inflammatory arthritis. 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 THIS IS AN ELECTRONICALLY VERIFIED FINAL REPORT 01/24/2024 8:57 PM - Electronically signed by ??Miguel Mcfarland M.D. D: ??01/24/2024 8:57 PM T: Report ID: [id number] Reading Location: ??[id number] Procedure Note Miguel Mcfarland MD - 01/24/2024 EXAM DESCRIPTION: XR HAND LEFT 3 OR MORE VIEWS; XR HAND RIGHT 3 OR MORE VIEWS REASON FOR STUDY: Bilateral hand pain Increased general hand pain for 2 years, no injury FINDINGS: Three views submitted without comparison. Left hand: There are no erosions. There are no fractures. There is mild triscapheand basal thumb joint osteoarthritis. There is polyarticular interphalangeal joint osteoarthritis. There is no dorsal wrist soft tissue swelling. Right hand: There are no erosions. There are no fractures. There is mild triscapheand basal arthritis. There is polyarticular interphalangeal jointosteoarthritis. There is no dorsal wrist soft tissue swelling. IMPRESSION: No radiographic evidence of inflammatory arthritis. 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 THIS IS AN ELECTRONICALLY VERIFIED FINAL REPORT 01/24/2024 8:57 PM - Electronically signed by Miguel Mcfarland M.D. T: Report ID: [id number] Reading Location: [id number] Vianey [facility] IMG XR PROCEDURES Final Result * XR Hand Right 3 or More Views (01/24/2024 9:58 AM CDT) Anatomical Region Laterality Modality Upper Extremities, Hand Right Computed Radiography 01/24/2024 8:55 PM CDT Narrative 01/24/2024 8:57 PM CDT EXAM DESCRIPTION: XR HAND LEFT 3 OR MORE VIEWS; XR HAND RIGHT 3 OR MORE VIEWS REASON FOR STUDY: Bilateral hand pain Increased general hand pain for 2 years, no injury ? FINDINGS: Three views submitted without comparison. Left hand: There are no erosions. ??There are no fractures. ??There is mild triscaphe and basal thumb joint osteoarthritis. ??There is polyarticular interphalangeal joint osteoarthritis. ??There is no dorsal wrist soft tissue swelling. Right hand: There are no erosions. ??There are no fractures. ??There is mild triscaphe and basal arthritis. ??There is polyarticular interphalangeal joint osteoarthritis. There is no dorsal wrist soft tissue swelling. IMPRESSION: No radiographic evidence of inflammatory arthritis. 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 THIS IS AN ELECTRONICALLY VERIFIED FINAL REPORT 01/24/2024 8:57 PM - Electronically signed by ??Miguel Mcfarland M.D. D: ??01/24/2024 8:57 PM T: Report ID: [id number] Reading Location: ??[id number] Procedure Note Miguel Mcfarland MD - 01/24/2024 EXAM DESCRIPTION: XR HAND LEFT 3 OR MORE VIEWS; XR HAND RIGHT 3 OR MORE VIEWS REASON FOR STUDY: Bilateral hand pain Increased general hand pain for 2 years, no injury FINDINGS: Three views submitted without comparison. Left hand: There are no erosions. There are no fractures. There is mild triscapheand basal thumb joint osteoarthritis. There is polyarticular interphalangeal joint osteoarthritis. There is no dorsal wrist soft tissue swelling. Right hand: There are no erosions. There are no fractures. There is mild triscapheand basal arthritis. There is polyarticular interphalangeal jointosteoarthritis. There is no dorsal wrist soft tissue swelling. IMPRESSION: No radiographic evidence of inflammatory arthritis. 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 THIS IS AN ELECTRONICALLY VERIFIED FINAL REPORT 01/24/2024 8:57 PM - Electronically signed by Miguel Mcfarland M.D. T: Report ID: [id number] Reading Location: [place] [address] Vianey [facility] IMG XR PROCEDURES Final Result documented in this encounter Visit Diagnoses Diagnosis Bilateral hand pain- Primary Localized osteoarthritis of hand, unspecified laterality Bilateral hand pain documented in this encounter Administered Medications Inactive Administered Medications - up to 3 most recent administrations Medication Order MAR Action Action Date Dose Rate Site lidocaine (XYLOCAINE) 10 mg/mL (1 %) injection 1 mL 1 mL, One-Time Injection, Starting on Lucille 01/24/24 at 1000, For 1 dose, Indications: Administration of Local AnesthesiaIndications:Admin istration of Local Anesthesia Given 01/24/2024 10:00 AM CDT 1 mL lidocaine (XYLOCAINE) 10 mg/mL (1 %) injection 1 mL 1 mL, One-Time Injection, Starting on Luc[place] 01/24/24 at 1000, For 1 dose, Indications: Administration of Local AnesthesiaIndications:Admin istration of Local Anesthesia Given 01/24/2024 10:00 AM CDT 1 mL Right Thumb lidocaine (XYLOCAINE) 10 mg/mL (1 %) injection 1 mL 1 mL, One-Time Injection, Starting on Luc[place] 01/24/24 at 1000, For 1 dose, Indications: Administration of Local AnesthesiaIndications:Admin istration of Local Anesthesia Given 01/24/2024 10:00 AM CDT 1 mL Right Index Finger lidocaine (XYLOCAINE) 10 mg/mL (1 %) injection 1 mL 1 mL, One-Time Injection, Starting on Luc[place] 01/24/24 at 1000, For 1 dose, Indications: Administration of Local AnesthesiaIndications:Admin istration of Local Anesthesia Given 01/24/2024 10:00 AM CDT 1 mL Left Index Finger triamcinolone (KENALOG) 40 mg/mL injection 5 mg 5 mg, One-Time Injection, Starting on Luc[place] 01/24/24 at 1000, For 1 doseIndications:Localized osteoarthritis of hand, unspecified laterality Given 01/24/2024 10:00 AM CDT 5 mg triamcinolone (KENALOG) 40 mg/mL injection 5 mg 5 mg, One-Time Injection, Starting on Luc[place] 01/24/24 at 1000, For 1 doseIndications:Localized osteoarthritis of hand, unspecified laterality Given 01/24/2024 10:00 AM CDT 5 mg Right Thumb triamcinolone (KENALOG) 40 mg/mL injection 5 mg 5 mg, One-Time Injection, Starting on Luc[place] 01/24/24 at 1000, For 1 doseIndications:Localized osteoarthritis of hand, unspecified laterality Given 01/24/2024 10:00 AM CDT 5 mg Right Index Finger triamcinolone (KENALOG) 40 mg/mL injection 5 mg 5 mg, One-Time Injection, Starting on Luc[place] 01/24/24 at 1000, For 1 doseIndications:Localized osteoarthritis of hand, unspecified laterality Given 01/24/2024 10:00 AM CDT 5 mg Left Index Finger documented in this encounter Care Teams Manual Plate Filler Relationship Specialty Start Date End Date Gabi Victoria PA [address] [facility] [address] [place] [address] PCP - General Internal Medicine 02/19/19 documented as of this encounter
--- OUTSIDE RECORDS SUMMARY | 2024-11-08 13:58 | XMS_ITS | Encounter Summary ---
Author Organization [facility] Healthcare Address [address] [place] [address] Care Team Providers Care Cafe Cook Name Role Phone Gabi Victoria Primary Care Provider +1- [phone] Reason for Visit * Reason Comments Annual Exam Encounter Details Date Type Department Care Team ([facility] st Contact Info) Description 07/08/2024 10:30 AM CDT Office Visit [facility] Medical Group Cardiology [address] [place] [address] Gilda Beach NP [address] [place], [place] [id number] Coronary artery calcification seen on CT scan (Primary Dx); Mixed hyperlipidemia Social History Tobacco Use Types Packs/Day Years Used Date Smoking Tobacco: Former Cigarettes 1 20 0 04/09/1997 - 04/09/2017 Vaping Smokeless Tobacco: Never Tobacco Cessation:Counseling Given: Not Answered Alcohol Use Standard Drinks/Week Comments Yes 0 [...] on file Legal Sex Female 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 Gender Identity Not on file Sexual Orientation Not on file Occupation Industry Job Start Date Job End Date Retired Not on file Not on file Not on file documented as of this encounter Last Filed Vital Signs Vital Sign Reading Time Taken Comments Blood Pressure 120/62 07/08/2024 10:29 AM CDT Pulse 75 07/08/2024 10:29 AM CDT Temperature - - Respiratory Rate - - Oxygen Saturation 98% 07/08/2024 10:29 AM CDT Inhaled Oxygen Concentration - - Weight 64 kg (141 lb) 07/08/2024 10:29 AM CDT Height 157.5 cm (5' 2 ) 07/08/2024 10:29 AM CDT Body Mass Index 25.79 07/08/2024 10:29 AM CDT documented in this encounter Progress Notes * Gilda Beach NP - 07/08/2024 10:30 AM CDT Images from the original note were not included. [facility] Medical Group Cardiology [address] [place] [address] Date of Visit: 07/08/2024 Patient ID: Ani Ortiz 1950 Chief Complaint Patient presents with Annual Exam Ani Ortiz is a 74 y.o. female who is a former patient of Dr. Lee with coronary artery calcification coming to the office for annual follow-up. History of Present Illness: Ani Ortiz is a 74 y.o. female with coronary artery calcification. Patient has a history of smoking (now quit), depression, and anxiety. She began seeing Dr. Lee in 2020. 07/08/2024 office visit with ASSOCIATE MATERIAL HANDLER: She is here for annual follow-up and has no cardiac concerns. She has remained physically active, actually suffered an ankle injury 2 months ago while playing pickleball (hairline fracture, wore a boot). She denies any chest discomfort. 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 Quit in smoking in 2019. , 2 daughters 1 son. Lives with her mother and her Great PyrennPretty akhtar. Medical History: Past Medical History: Diagnosis Date Allergic rhinitis Anxiety COPD (chronic obstructive pulmonary disease) ([facility]) Coronary artery calcification Depression Suicide attempt 1969 a Emphysema of lung (HCC) Hyperlipidemia Kidney stones Mixed conductive and sensorineural hearing loss Past Surgical History: Procedure Laterality Date BLADDER SURGERY 1988 CATARACT EXTRACTION 2015 CHOLECYSTECTOMY 2015 COLONOSCOPY 2017 COSMETIC SURGERY 1978 HYSTERECTOMY 1982 RHINOPLASTY SHOULDER SURGERY Left 2015 TONSILLECTOMY 1971 Social History Tobacco Use Smoking Status Former Current packs/day: 0.00 Average packs/day: 1 pack/day for 20.0 years (20.0 ttl pk-yrs) Types: Cigarettes, Vaping Start date: 04/09/1997 Quit date: 04/09/2017 Years since quittin.2 Smokeless Tobacco Never Social History Tobacco Use Smoking status: Former Current packs/day: 0.00 Average packs/day: 1 pack/day for 20.0 years (20.0 ttl pk-yrs) Types: Cigarettes, Vaping Start date: 04/09/1997 Quit date: 04/09/2017 Years since quittin.2 Smokeless tobacco: Never Substance and Sexual Activity Drug use: Never Sexual activity: Not Currently Partners: Female control/protection: I.U.D. Alcohol Use: Not At Risk (03/03/2024) AUDIT-C Frequency of Alcohol Consumption: Monthly or less Average Number of Drinks: 1 or 2 Frequency of Binge Drinking: Never Family History Problem Relation Age of Onset Hyperlipidemia Mother Other (Cancer, gioblastoma) Father Cancer Father Review of Systems Constitutional: Negative for malaise/fatigue, weight gain and weight loss. Cardiovascular: Negative for chest pain, claudication, dyspnea on exertion, leg swelling, near-syncope, orthopnea, palpitations, paroxysmal nocturnal dyspnea and syncope. Respiratory: Negative for cough, shortness of breath and sleep disturbances due to breathing. Hematologic/Lymphatic: Negative for bleeding problem. Does not bruise/bleed easily. Neurological: Negative for dizziness and light-headedness. Vital Signs: BP 120/62 (BP Location: Left arm, Patient Position: Sitting) Pulse 75 Ht 157.5 cm (5' 2 ) Wt 64 kg (141 lb) SpO2 98% BMI 25.79 kg/m?? Physical Exam Constitutional: General: She is not in acute distress. Appearance: She is well-developed. HENT: Head: Normocephalic and atraumatic. Eyes: General: No scleral icterus. Conjunctiva/sclera: Conjunctivae normal. Neck: Vascular: No JVD. Trachea: No tracheal deviation. Cardiovascular: Rate and Rhythm: Normal rate and regular rhythm. Heart sounds: Normal heart sounds. No murmur heard. Pulmonary: Effort: Pulmonary effort is normal. No respiratory distress. Breath sounds: Normal breath sounds. Skin: General: Skin is warm and dry. Neurological: Mental Status: She is alert and oriented to person, place, and time. Psychiatric: Mood and Affect: Mood normal. Behavior: Behavior normal. Allergies Allergen Reactions Cephalexin Rash Cephalosporins Rash Penicillin V Potassium Rash Shellfish Unknown Erythromycin Vomiting Current Outpatient Medications: aspirin 81 mg chewable tablet, Take 1 tablet (81 mg total) by mouth daily, Disp: 30 tablet, Rfl: 11 buPROPion XL (WELLBUTRIN XL) 300 mg 24 hr tablet, TAKE 1 TABLET(300 MG) BY MOUTH EVERY MORNING, Disp: 90 tablet, Rfl: 1 busPIRone (BUSPAR) 15 mg tablet, TAKE 1 TABLET(15 MG) BY MOUTH THREE TIMES DAILY, Disp: 90 tablet, Rfl: 1 clonazePAM (KlonoPIN) 1 mg tablet, Take 1 tablet (1 mg total) by mouth every 8 (eight) hours as needed for anxiety, Disp: 30 tablet, Rfl: 0 cyanocobalamin (Vitamin B-12) 100 mcg tablet, Take 1 tablet (100 mcg total) by mouth daily, Disp: ,Rfl: fluticasone propionate (FLONASE) 50 mcg/actuation nasal spray, SHAKE LIQUID AND USE 2 SPRAYS IN EACH NOSTRIL DAILY, Disp: 48 g, Rfl: 1 omeprazole (PriLOSEC) 20 mg capsule, TAKE 1 CAPSULE BY MOUTH EVERY DAY DIRECTED, Disp: , Rfl: ondansetron ODT (ZOFRAN-ODT) 4 mg disintegrating tablet, DISSOLVE ONE TABLET BY MOUTH EVERY 8 HOURSAS NEEDED FOR NUASEA AND VOMITING, Disp: , Rfl: rosuvastatin (CRESTOR) 40 mg tablet, Take 1 tablet (40 mg total) by mouth daily, Disp: 90 tablet, Rfl: 3 tamsulosin (FLOMAX) 0.4 mg extended release capsule, TAKE 1 CAPSULE BY MOUTH DAILY. CONTINUE UNTIL STONE HAS PASSED, Disp: , Rfl: valACYclovir (VALTREX) 1 gram tablet, Take TWO tabs po at onset of cold sore. Take TWO tabs po 12 hours later., Disp: 20 tablet, Rfl: 0 vit D3-vit A-xzzcnjvrj-uvlg [id number] qiuy-dld-gn-mg tablet, Take 50 mcg by mouth, Disp: , Rfl: vortioxetine (TRINTELLIX) 20 mg tablet, Take 1 tablet (20 mg total) by mouth daily, Disp: 90 tablet, Rfl: 1 zolpidem (AMBIEN) 5 mg tablet, Take 1 tablet (5 mg total) by mouth nightly as needed for sleep, Disp: 90 tablet, Rfl: 0 albuterol HFA (ProAir HFA) 90 mcg/actuation inhaler, Inhale 2 puffs every 4 (four) hours as needed for wheezing or shortness of breath (Patient not taking: Reported on 07/08/2024), Disp: 8.5 g, Rfl: 0 Lab Results Component Value Date POTASSIUM 3.8 03/25/2024 BUNSER 18 03/25/2024 CREATININE 1.24 (H) 03/25/2024 CHOL 178 01/15/2024 TRIG 106 01/15/2024 LDL 92 01/15/2024 HDL 66 01/15/2024 Lab Results Component Value Date WBC 5.8 01/15/2024 HGB 14.3 01/15/2024 HCT 43.5 01/15/2024 MCV 95.4 01/15/2024 No results found for this or any previous visit (from the past 4 hour(s)). No results found for: POCCHOL , POCHDL , POCTRIG , POCLDL , POCNONHDL , POCCHLPL Assessment: Diagnoses and all orders for this visit: Coronary artery calcification seen on CT scan (Primary) Mixed hyperlipidemia Plan/Recommendations: She has coronary artery calcification and we are treating her for presumed coronary artery disease.Previous chest CT still showed a subendocardial fat deposit on the heart suggestive of a previous [place].. She remains physically active without symptoms concerning for angina. I reviewed signs/symptoms of angina with her so she would recognize this if it occurred. Lipids checked earlier this year weremore elevated than last year. I encouraged her continue her regular exercise, follow her healthy diet with a focus on minimizing saturated fat. Continue aspirin and rosuvastatin. No further cardiac testing is indicated at this time. We will transition her ongoing care to one ofour other cardiologists and plan for ongoing annual follow up. Call us sooner with questions or concerns. 07/08/2024 KENDRA Knutson- Nurse Practitioner with [facility] Card[facility] This note is dictated and transcribed using [employer] Direct Software. Diversified Crops Supervisor variancesmay occur. Despite proofreading, typographical errors may occur. documented in this encounter Plan of Treatment Not on file documented as of this encounter Visit Diagnoses Diagnosis Coronary artery calcification seen on CT scan- Primary Mixed hyperlipidemia documented in this encounter Care Teams Cafe Cook Relationship Specialty Start Date End Date Gabi Victoria PA [address] [address] PCP - General Internal Medicine 02/19/19 documented as of this encounter
--- OUTSIDE RECORDS SUMMARY | 2024-11-08 13:58 | XMS_ITS | Encounter Summary ---
Author Organization [facility] Healthcare Address [address] [place] [address] Care Team Providers Care Jet Pilot Name Role Phone Gabi Victoria Primary Care Provider +1- [phone] Reason for Visit * Reason Onset Date Comments Additional Services Or Orders 07/25/2024 Encounter Details Date Type Department Care Team (Late st Contact Info) Description 07/25/2024 Telephone [facility] Medical Group Family Medicine [address] [place] [address] Gabi Victoria PA 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 * Telephone Encounter - Nataly Pinon - 07/25/2024 1:20 PM CDT Additional Services or Orders Type of Service Requested:Testing Mammogram and Dexa Scan. Reason for Request (e.g. condition/symptom, date of COVID exposure if applicable): Both tests for Screening. Details Regarding Additional Services (e.g. type of home health, type of equipment, type of test, etc.): Radiology. Where will services be performed? (if outside of the practice, facility name, address, phone/fax offacility): [facility]. Additional Comments: Needs an ICD-10 Code. Trying to get a Medical Necessity done. Please order, SANDRA. Does message need to be routed? Yes-Action Needed documented in this encounter Plan of Treatment Not on file documented as of this encounter Visit Diagnoses Not on filedocumented in this encounter Care Teams Jet Pilot Relationship Specialty Start Date End Date Gabi Victoria PA [facility] [facility] [address] [place] [address] PCP - General Internal Medicine 02/19/19 documented as of this encounter
--- OUTSIDE RECORDS SUMMARY | 2024-11-08 13:58 | XMS_ITS | Encounter Summary ---
Author Organization [facility] Healthcare Address [address] [place] [address] Care Team Providers Care Campus Chaplain Name Role Phone Gabi Victoria Primary Care Provider +1- [phone] Reason for Visit * Reason Onset Date Comments Medical Question/Miscellaneous 10/29/2024 Encounter Details Date Type Department Care Team ([facility] st Contact Info) Description 10/29/2024 Telephone [facility] Medical Group Family Medicine [address] [place] [address] Gabi Victoria PA [address] [place] [id number] Medical Question/Miscellaneous Social History Tobacco Use Types Packs/Day Years [...] on file Legal Sex 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 ROOM FOUNDRY LABORER * Telephone Encounter - Kenyetta Gan MA - 10/30/2024 9:11 AM CST Call Back Caller???s Concern: Correct fax number in Contact information from this call, HOWEVER, Radha said a verbal might be a faster way to relay. Diagnosis code [id number] is what is needed for patient's CT scheduled at [facility] 12..24. Does message need to be routed? Yes-Action Needed ROOM FOUNDRY LABORER * Telephone Encounter - Yeimi Cordoba LPN - 10/29/2024 10:25 AM COREROOM FOUNDRY LABORER Attempted to call x 2. Faxed order over with the diagnosis code to the radiology dept at [phone]. ROOM FOUNDRY LABORER * Telephone Encounter - Pamela Orellana - 10/29/2024 9:34 AM CST Medical Question/Miscellaneous Caller???s Concern: [facility] needing diagnosis code for CT Lung Cancer Screening Does message need to be routed? Yes-Action Needed ROOM FOUNDRY LABORER documented in this encounter Plan of Treatment Not on file documented as of this encounter Visit Diagnoses Not on filedocumented in this encounter Care Teams Campus Chaplain Relationship Specialty Start Date End Date Gabi Victoria PA [address] [place] [address] PCP - General Internal Medicine 02/19/19 documented as of this encounter
--- OUTSIDE RECORDS SUMMARY | 2024-11-08 13:58 | XMS_ITS | Encounter Summary ---
Author Organization [facility] Healthcare Address [address] [place] [address] Care Team Providers Care Resident Director Name Role Phone Gabi Victoria Primary Care Provider +1- [phone] Reason for Visit * Reason Onset Date Comments Successful Phone Call 07/15/2024 Med adhere nce Encounter Details Date Type Department Care Team (Late st Contact Info) Description 07/15/2024 Telephone [facility] Accountable Care Organization [address] [place], [place] [id number] Rossi Frazier MA [address] [place] [address] Successful Phone Call (Med adherence) Social History Tobacco Use Types Packs/Day Years [...] on file Legal 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 According to this report, Rosuvastatin was last refilled on 04-16-24 for a 90 day supply. Goal is to have enough medicine so that 80% or more of the days are covered each year. Outreach: Successfully reached patient by phone. Patient stated she will be calling it in. Pt is about out. Education provided during this encounter: Request a refill at least 1 week before running out of medicine to allow the pharmacy time to obtain the medicine or notify you of any delays Recommendation(s): No interventions recommended at this time. documented in this encounter Plan of Treatment Not on file documented as of this encounter Visit Diagnoses Not on filedocumented in this encounter Care Teams Resident Director Relationship Specialty Start Date End Date Gabi Victoria PA [address] [address] PCP - General Internal Medicine 02/19/19 documented as of this encounter
--- OUTSIDE RECORDS SUMMARY | 2024-11-08 13:58 | XMS_ITS | Referral Summary ---
Author Organization [facility] [address] [place] [address] [place] [id number] Care Team Providers Care Program Director Name Role Phone Gabi Victoria Primary Care Provider [phone]- [phone] Encounters Date Type Department Care Team Description 10/29/[address] [place] [phone] Gaib Victoria PA Medical Question/Miscellaneous 09/25/2024 10:45 AM FURRIER DESIGNER Office Visit [facility] Hand Surgery [facility] [address] [place] [address] Vianey Warren PA Localized osteoarthritis of hand, unspecified laterality (Primary Dx) 09/18/2024 11:15 AM FURRIER DESIGNER Office Visit [facility] Orthopedics and Sports Medicine [facility] [address] [place] [address] Lawson Hassan MD Rotator cuff tear arthropathy, left (Primary Dx); Bilateral shoulder pain, unspecified chronicity 09/02/2024 9:00 AM CDT Office Visit [address] [place] [address] Gabi Victoria PA Medicare annual wellness visit, subsequent (Primary Dx); Snores; Former smoker; Moderate episode of recurrent major depressive disorder (HCC); Stage 3a chronic kidney disease (HCC); Need for influenza vaccination; Mixed hyperlipidemia; BMI 26.0-26.9,adult from Last 3 Months Allergies Active Allergy Reactions Criticality Noted Date Comments Cephalexin Rash Medium 02/19/2019 Cephalosporins Rash Medium 11/24/2020 Erythromycin Vomiting Low 02/19/2019 Penicillin V Potassium Rash Medium 02/19/2019 Shellfish Unknown 02/19/2019 Medications vit D3-vit G-hmwnolepy-lajd [phone] jswj-vok-dw-mg tablet Take 50 mcg by mouth Active aspirin 81 mg chewable tabletIndications :Coronary artery calcification seen on CT scan Take 1 tablet (81 mg total) by mouth daily 30 tablet 11 11/24/19 21 Active cyanocobalamin (Vitamin B-12) 100 mcg tabletIndications :Prevention of Vitamin B12 Deficiency Take 1 tablet (100 mcg total) by mouth daily Active fluticasone propionate (FLONASE) 50 mcg/actuation nasal spray SHAKE LIQUID AND USE 2 SPRAYS IN EACH NOSTRIL DAILY 48 g 1 02/01/20 22 Active tamsulosin (FLOMAX) 0.4 mg extended release capsule TAKE 1 CAPSULE BY MOUTH DAILY. CONTINUE UNTIL STONE HAS PASSED 08/22/20 23 Active ondansetron ODT (ZOFRAN-ODT) 4 mg disintegrating tablet DISSOLVE ONE TABLET BY MOUTH EVERY 8 HOURS NEEDED FOR NUASEA AND VOMITING 11/30/19 24 Active buPROPion XL (WELLBUTRIN XL) 300 mg 24 hr tabletIndications :Anxiety TAKE 1 TABLET(300 MG) BY MOUTH EVERY MORNING 90 tablet 1 05/30/20 24 Active omeprazole (PriLOSEC) 20 mg capsule TAKE 1 CAPSULE BY MOUTH EVERY DAY DIRECTED 05/28/20 24 Active valACYclovir (VALTREX) 1 gram tablet Take TWO tabs po at onset of cold sore. Take TWO tabs po 12 hours later. 20 tablet 07/28/20 24 Active Trintellix 20 mg tabletIndications :Moderate episode of recurrent major depressive disorder (HCC) TAKE 1 TABLET(20 MG) BY MOUTH DAILY 90 tablet 1 07/29/20 24 Active zolpidem (AMBIEN) 5 mg tabletIndications :Sleep-Onset Insomnia Take 1 tablet (5 mg total) by mouth nightly as needed for sleep 90 tablet 08/11/20 24 2023 Active albuterol HFA (ProAir HFA) 90 mcg/actuation inhaler Inhale 2 puffs every 4 (four) hours as needed for wheezing or shortness of breath 8.5 g 09/19/20 24 2024 Active clonazePAM (KlonoPIN) 1 mg tabletIndications :Anxiety Take 1 tablet (1 mg total) by mouth every 8 (eight) hours as needed for anxiety 30 tablet 10/16/20 24 2024 Active busPIRone (BUSPAR) 15 mg tabletIndications :Anxiety TAKE 1 TABLET(15 MG) BY MOUTH THREE TIMES DAILY 90 tablet 1 10/27/20 24 Active rosuvastatin (CRESTOR) 40 mg tabletIndications :Coronary artery calcification seen on CT scan,Mixed hyperlipidemia TAKE 1 TABLET(40 MG) BY MOUTH DAILY 100 tablet 1 11/01/20 24 Active rosuvastatin (CRESTOR) 40 mg tabletIndications :Coronary artery calcification seen on CT scan,Mixed hyperlipidemia Take 1 tablet (40 mg total) by mouth daily 90 tablet 3 09/25/20 23 2023 Discontinued busPIRone (BUSPAR) 15 mg tabletIndications :Anxiety TAKE 1 TABLET(15 MG) BY MOUTH THREE TIMES DAILY 90 tablet 1 09/01/20 24 2023 Discontinued clonazePAM (KlonoPIN) 1 mg tabletIndications :Anxiety Take 1 tablet (1 mg total) by mouth every 8 (eight) hours as needed for anxiety 30 tablet 09/19/20 24 2023 Discontinued(R eorder) Active Problems Patient Care Coordination No te Formatting of this note migh t be different from the original. CAD for BIC Problem Noted Date Diagnosed Date Snores 09/07/2024 Assessment & Plan (09/07/2024 10:49 PM CDT): This is a significant, separately identifiable problem that was evaluated and managed on the same day as the wellness exam Patient has had increased snoring daytime sleepiness and symptoms that may be related to sleep apnea. Recommend referral to sleep Medicine to further evaluate Medicare annual wellness visit, subsequent 09/07 Assessment & Plan (09/07/2024 10:49 PM CDT): Encouraged healthy lifestyle, good nutrition and exercise. Encouraged Calcium and Vitamin D and weight bearing exercise for bone health. Reviewed immunizations. Reviewed age appropirate screenings. Medicare Wellness Documentation is completed within the chart BMI 26.0-26.9,adult 09/02/2024 Assessment & Plan (09/02/2024 9:13 AM CDT): Weight/BMI is in healthy range. Continue healthy lifestyle to maintain. Need for influenza vaccination 09/02/2024 Assessment & Plan (09/07/2024 10:48 PM CDT): Flu vaccine updated in the office today Neck pain 03/08/2024 Assessment & Plan (03/08/2024 11:44 PM CDT): Patient with persistent neck pain and tension headaches. Recommend physical therapy. If symptoms persist encouraged follow-up to reassess Hyperglycemia 04/02/2023 Assessment & Plan (09/25/2023 12:59 PM FURRIER DESIGNER): Check labs Assessment & Plan (04/02/2023 2:21 PM CDT): Pre-diabetes/hyperglycemia is a precursor to Dm. Stressed importance of working on diet (decrease your simple sugars and one carbohydrate with each meal) and increase you exercise to achieve weight loss and this will help prevent you from progressing to diabetes. Menopause 07/19/2021 Assessment & Plan (07/19/2021 9:18 PM CDT): Check DXA RBBB 11/27/2020 Assessment & Plan (01/12/2021 9:51 PM FURRIER DESIGNER): Per Cardio note may monitor Former smoker 11/24/2020 Assessment & Plan (09/07/2024 10:48 PM CDT): Low-dose CT is due to repeat. Will place the order Assessment & Plan (04/02/2023 2:20 PM CDT): Due for low-dose CT. Order placed. Assessment & Plan (08/23/2022 8:34 PM CDT): Patient stop smoking in March of 2022. He continue to monitor low-dose CT annually or as indicated Assessment & Plan (02/24/2022 10:40 PM CDT): Patient is due for low-dose CT. Will place order for [facility] Assessment & Plan (07/18/2021 9:50 PM CDT): Continue to monitor annual LDCT. Next one due 12/2021 Assessment & Plan (01/12/2021 9:52 PM FURRIER DESIGNER): Due for repeat LDCT after 01/09/2021 Coronary artery calcification seen on CT scan Overview (01/12/2021): LDCT done 12/2019 showed moderate to severe amount of coronary calcifications. Referred to Cardio Dr. Hwang 11/2020 Crestor increased to 40mg to get LDL below 70 [id number] started Stress ECHO appears normal. Assessment & Plan (09/25/2023 12:59 PM FURRIER DESIGNER): LDCT done 12/2019 showed moderate to severe amount of coronary calcifications. Referred to Cardio Dr. Hwang 11/2020 Crestor increased to 40mg to get LDL below 70 [id number] started Stress ECHO appears normal. Assessment & Plan (08/26/2023 5:36 PM CDT): Referred to Cardio Dr. Hwang 11/2020 Crestor increased to 40mg to get LDL below 70 [id number] started Stress ECHO appears normal. Assessment & Plan (07/18/2021 9:47 PM CDT): Continue ASA and Crestor 40mg. Still follows with Dr. Hwang at least annually Assessment & Plan (01/12/2021 9:51 PM FURRIER DESIGNER): Referred to Cardio Dr. Hwang 11/2020 Crestor increased to 40mg to get LDL below 70 [id number] started Stress ECHO appears normal. Continue per Cardio Dr. Hwang Assessment & Plan (08/22/2020 10:43 PM CDT): LDCT done 12/2019 showed moderate to severe amount of coronary calcifications. Refer to Cardio for further evaluation. Moderate episode of recurrent major depressive d isorder 01/05/2020 Assessment & Plan (09/07/2024 10:48 PM CDT): Depression symptoms have been stable with the Trintellix and Wellbutrin XL 300 and BuSpar and Klonopin p.r.n. Assessment & Plan (03/08/2024 11:42 PM CDT): Symptoms are stable with Trintellix Wellbutrin BuSpar p.r.n. Klonopin Assessment & Plan (09/25/2023 12:58 PM FURRIER DESIGNER): Patient states symptoms are much more stable with Trintellix 10 and Wellbutrin XL 300. She tapered the Prozac without difficulty. Using Klonopin mostly HS for help with restless leg. She is happy with this combination will continue to monitor. Refills available at pharmacy. Assessment & Plan (08/26/2023 5:39 PM CDT): This is a significant, separately identifiable problem that was evaluated and managed on the same day as the wellness exam Patient's symptoms are still not well controlled. She quit the BuSpar she thinks it did not help much. She would like to stop the Prozac and try Trintellix. Reviewed risks benefits alternatives side effects and proper use. Provided the following taper schedule. Prozac 40mg x 7 days and then 20mg x 7 days then stop Trintellix 10mg one daily. Continue Wellbutrin XL 300 and then Klonopin HS as needed Assessment & Plan (04/02/2023 2:20 PM CDT): Continue Prozac 60 Wellbutrin BuSpar and Klonopin continue with counseling Assessment & Plan (08/23/2022 8:34 PM CDT): Patient has continued depression anxiety symptoms. Continue Prozac 60, Wellbutrin 300 and BuSpar and p.r.n. Klonopin. She feels like she is doing pretty well strongly encouraged her to continue counseling. Assessment & Plan (02/24/2022 10:40 PM CDT): Improving with the increased dose of the Prozac to 60 mg. Continue Wellbutrin, BuSpar and Klonopin p.r.n. Assessment & Plan (10/07/2021 9:52 PM FURRIER DESIGNER): Continue Prozac 60 mg. She is on Prozac 20+ Prozac 40 to make the 60. Assessment & Plan (07/19/2021 9:15 PM CDT): This is a significant, separately identifiable problem that was evaluated and managed on the same day as the wellness exam Increased depression sxs. No suicidal or homicidal thoughts. She alludes that she is still grieving her husbands . Encouraged counseling and provided names of counselors. Increase Prozac to 60mg (40mg plus 20mg tabs) Continue wellbutrin, buspar and klonipin sparingly. Followup 4-6 weeks to reassess. Assessment & Plan (01/12/2021 9:53 PM FURRIER DESIGNER): See anxiety Assessment & Plan (08/22/2020 10:47 PM CDT): Continue Prozac, wellbutrin, buspar and klonipin sparinginly Assessment & Plan (01/05/2020 11:18 AM FURRIER DESIGNER): This is a significant, separately identifiable problem [...] if needs help with anxiety/sleep at night. Osteopenia of left hip 10/20/2019 Assessment & Plan (08/23/2022 8:33 PM CDT): DEXA was stable. Has mild osteopenia of the left hip. Continue calcium in her diet, she has kidney stones, vitamin-D and exercise. Continue to monitor DEXA in 3 years Assessment & Plan (07/18/2021 9:48 PM CDT): Monitor dxa Assessment & Plan (01/12/2021 9:52 PM FURRIER DESIGNER): DXA due 09/2021 Calcium and vit d Assessment & Plan (01/05/2020 11:14 AM FURRIER DESIGNER): Encouraged Calcium, Vit D and Weight bearing exercise. Stop smoking. Recheck DXA in 09/2021 Assessment & Plan (10/20/2019 1:42 PM FURRIER DESIGNER): DXA 09/2019 at [place] Reviewed results with patient. Encouraged calcium, vit d and exercise. Recheck in 2 years. Cough 06/30/2019 Assessment & Plan (02/08/2022 8:01 PM CDT): Persistent cough. She has quite a bit a wheezing and rhonchi. Discussed going to the ER today but she prefers to try to work this up as an outpatient 1st. Will send her for a chest x-ray. Will go ahead and start Levaquin as well as albuterol q.4 hours p.r.n. and prednisone 60 mg q.a.m. x5 days. Discussed IM steroid and she is a little more hesitant. Advised to watch carefully and if she has progression of her symptoms has difficulty catching her breath has O2 sats are dropping below 92% (she has he has a O2 sat reader at home) then she is to go to the ER immediately for assistance. She verbalizes understanding agreement with the plan Assessment & Plan (08/25/2019 8:29 AM CDT): Continue with otc/allergy meds and monitor. If continues thru fall may consider trial PPI Assessment & Plan (06/30/2019 8:17 AM CDT): Her cough today seems related more so towards postnasal drainage. No signs of bronchitis. Recommend starting antihistamine, Flonase, Mucinex/perez Tussin at bedtime, and continue to monitor closely. Push fluids. If symptoms progress or turning a fever or increased shortness of breath she is to follow-up sooner. Mixed hyperlipidemia 02/19/2019 Assessment & Plan (09/07/2024 10:47 PM CDT): Encouraged patient to follow low fat/low chol diet like the Mediterranean diet. Increase good fats in the diet. Increase exercise. Monitor labs as needed. Continue Crestga 40 Assessment & Plan (03/08/2024 11:42 PM CDT): Encouraged patient to follow low fat/low chol diet like the Mediterranean diet. Increase good fats in the diet. Increase exercise. Monitor labs as needed. Continue Crestga 40 Assessment & Plan (09/25/2023 12:59 PM FURRIER DESIGNER): Encouraged patient to follow low fat/low chol diet like the Mediterranean diet. Increase good fats in the diet. Increase exercise. Monitor labs as needed. Continue Crestor 40 Assessment & Plan (08/26/2023 5:36 PM CDT): Encouraged patient to follow low fat/low chol diet like the Mediterranean diet. Increase good fats in the diet. Increase exercise. Monitor labs as needed. Continue Crestor 40 Assessment & Plan (04/02/2023 2:17 PM CDT): Encouraged patient to follow low fat/low chol diet like the Mediterranean diet. Increase good fats in the diet. Increase exercise. Monitor labs as needed. Continue Crestor Assessment & Plan (08/23/2022 8:32 PM CDT): Encouraged patient to follow low fat/low chol diet like the Mediterranean diet. Increase good fats in the diet. Increase exercise. Monitor labs as needed. Continue Crestor 40 Assessment & Plan (02/24/2022 10:39 PM CDT): Encouraged patient to follow low fat/low chol diet like the Mediterranean diet. Increase good fats in the diet. Increase exercise. Monitor labs as needed. Continue Crestor Assessment & Plan (10/07/2021 9:52 PM FURRIER DESIGNER): Encouraged patient to follow fat/low chol diet like the Mediterranean diet. Increase good fats in the diet. Increase exercise. Monitor labs as needed. Continue statin Assessment & Plan (07/18/2021 9:47 PM CDT): Encouraged patient to follow fat/low chol diet like the Mediterranean diet. Increase good fats in the diet. Increase exercise. Monitor labs as needed. Continue crestor Assessment & Plan (01/12/2021 9:52 PM FURRIER DESIGNER): Encouraged patient to follow fat/low chol diet like the Mediterranean diet. Increase good fats in the diet. Increase exercise. Monitor labs as needed. Continue crestor Assessment & Plan (08/22/2020 10:45 PM CDT): Encouraged patient to follow fat/low chol diet like the Mediterranean diet. Increase good fats in the diet. Increase exercise. Monitor labs as needed. Crestor daily Assessment & Plan (01/05/2020 11:14 AM FURRIER DESIGNER): Encouraged patient to continue low fat/low chol diet. Continue exercise. Increase good fats in the diet. Monitor labs as needed. Continue crestor Assessment & Plan (10/20/2019 1:42 PM FURRIER DESIGNER): Encouraged patient to continue low fat/low chol diet. Continue exercise. Increase good fats in the diet. Monitor labs as needed. Continue Crestor Anxiety 02/19/2019 Assessment & Plan (09/25/2023 12:58 PM FURRIER DESIGNER): Patient states symptoms are much more stable with Trintellix 10 and Wellbutrin XL 300. She tapered the Prozac without difficulty. Using Klonopin mostly HS for help with restless leg. She is happy with this combination will continue to monitor. Refills available at pharmacy. Follow-up in 3-4 months for wellness exam and follow-up depression anxiety symptoms Assessment & Plan (04/02/2023 2:19 PM CDT): Continue Prozac 60 Wellbutrin BuSpar and Klonopin continue with counseling Assessment & Plan (08/23/2022 8:32 PM CDT): Patient has continued depression anxiety symptoms. Continue Prozac 60, Wellbutrin 300 and BuSpar and p.r.n. Klonopin. She feels like she is doing pretty well strongly encouraged her to continue counseling. Assessment & Plan (02/24/2022 10:39 PM CDT): Patient responded today increased Prozac. Continue at 60 mg with the Wellbutrin BuSpar and Klonopin p.r.n. Assessment & Plan (01/12/2021 9:52 PM FURRIER DESIGNER): Continue Prozac, wellbutrin, buspar and klonipin sparingly Assessment & Plan (08/22/2020 10:45 PM CDT): See depression Assessment & Plan (01/05/2020 11:16 AM FURRIER DESIGNER): See depression Anxiety/fear better with the buspar Assessment & Plan (10/20/2019 1:42 PM FURRIER DESIGNER): Continue Cymbalta, Wellbutrin and Buspar. Has Klonipin, but she takes it for RLS/sleep. Assessment & Plan (08/25/2019 8:34 AM CDT): Continue Cymbalta, Wellbutrin and prn Klonipin. Increase Buspar to 15mg tid. Encouraged counseling. Call if needs assistance during this time. Assessment & Plan (06/30/2019 8:18 AM CDT): Stable with her current regimen of Cymbalta BuSpar Wellbutrin and Klonopin p.r.n. Assessment & Plan (04/09/2019 11:22 PM CDT): Improving. Continue the Cymbalta and Wellbutin. Increase the Bupsar to 10mg tid. Use Clonazepam only for acute panic. Call if increased sxs/problems. Assessment & Plan (02/23/2019 9:31 PM CDT): Continue the Cymbalta. She is to continue with the Clonazepam and use it bid with the expectation of a longer acting anxiety medication. Not instant. Will provide Buspar to use up to tid prn for increased anxiety effects. Reviewed risks, benefit, alternatives, side effects and proper use. Tremor 02/19/2019 History of colon polyps 02/19/2019 Assessment & Plan (04/02/2023 2:19 PM CDT): History of colon polyps. Due to repeat colonoscopy in May of 2024 Assessment & Plan (08/23/2022 8:33 PM CDT): Last colonoscopy in May of 2019 due to repeat 2023 Assessment & Plan (07/18/2021 9:48 PM CDT): 05/2019--->05/2024 Assessment & Plan (01/12/2021 9:53 PM FURRIER DESIGNER): Due to repeat colonoscopy 2023 Assessment & Plan (02/23/2019 9:32 PM CDT): Followup colonoscopy ordered. Referral sent to Dr. Quintero. Tra luo 02/19/2019 Assessment & Plan (01/05/2020 11:14 AM FURRIER DESIGNER): Valtrex prn Other insomnia 02/19/2019 Assessment & Plan (08/26/2023 5:36 PM CDT): Patient wants to continue with the Ambien. She states that is the only thing that helps. She is aware of the black box warnings related to her age Assessment & Plan (07/19/2021 9:17 PM CDT): Prefers ambien Assessment & Plan (01/12/2021 9:53 PM FURRIER DESIGNER): Continue Ambien. Patient is aware of the warning with her age and this medication. She desires to continue it. Assessment & Plan (01/05/2020 11:15 AM FURRIER DESIGNER): Continue ambmarcelle prn Assessment & Plan (10/20/2019 1:43 PM FURRIER DESIGNER): Continue Ambien Stage 3a chronic kidney disease 02/19/2019 Assessment & Plan (09/07/2024 10:47 PM CDT): Avoid nephrotoxic drugs including NSAIDs. Monitor labs. Assessment & Plan (03/08/2024 11:42 PM CDT): Avoid nephrotoxic drugs including NSAIDs. Monitor labs. Assessment & Plan (09/25/2023 12:59 PM FURRIER DESIGNER): Avoid nephrotoxic drugs including NSAIDs. Monitor labs. Assessment & Plan (08/26/2023 5:37 PM CDT): Avoid nephrotoxic drugs including NSAIDs. Monitor labs. Assessment & Plan (04/02/2023 2:19 PM CDT): Avoid nephrotoxic drugs including NSAIDs. Monitor labs. Assessment & Plan (08/23/2022 8:33 PM CDT): Avoid nephrotoxic drugs including NSAIDs. Monitor labs. Assessment & Plan (02/24/2022 10:40 PM CDT): Avoid nephrotoxic drugs including NSAIDs. Monitor labs. Assessment & Plan (07/18/2021 9:48 PM CDT): Avoid nephrotoxic drugs including NSAIDs. Monitor labs. Assessment & Plan (01/12/2021 9:51 PM FURRIER DESIGNER): Avoid nephrotoxic drugs including NSAIDs. Monitor labs. Assessment & Plan (01/05/2020 11:13 AM FURRIER DESIGNER): Avoid nephrotoxic drugs including NSAIDs. Monitor labs. Assessment & Plan (10/20/2019 1:41 PM FURRIER DESIGNER): Avoid nephrotoxic drugs including NSAIDs. Monitor labs. Assessment & Plan (08/25/2019 8:29 AM CDT): Avoid NSAIDs. Resolved Problems Problem Noted Date Diagnosed Date Resolved Date Annual physical exam 03/08/2024 024 Assessment & Plan (03/08/2024 11:44 PM CDT): Encouraged healthy lifestyle, good nutrition and exercise. Encouraged Calcium and Vitamin D and weight bearing exercise for bone health. Reviewed immunizations Reviewed age appropirate screenings. BMI 25.0-25.9,adult 09/25/2023 03/03/20 24 Assessment & Plan (09/25/2023 11:09 AM FURRIER DESIGNER): Weight/BMI is in healthy range. Continue healthy lifestyle to maintain. Need for immunization against influenza 08/26/2023 09/25/2023 Assessment & Plan (08/26/2023 5:38 PM CDT): Flu vaccine updated in the office today BMI 24.0-24.9, adult 08/14/2023 023 Assessment & Plan (08/14/2023 10:03 AM CDT): Weight/BMI is in healthy range. Continue healthy lifestyle to maintain. Weight/BMI is in healthy range. Continue healthy lifestyle to maintain. BMI 25.0-25.9,adult 04/02/2023 08/14/20 23 Assessment & Plan (04/02/2023 9:20 AM CDT): Weight/BMI is in healthy range. Continue healthy lifestyle to maintain. Fatigue 04/02/2023 09/07/2024 Assessment & Plan (03/08/2024 11:43 PM CDT): Probably multifactorial. Check labs and followup to re-evaluate Assessment & Plan (09/25/2023 12:59 PM FURRIER DESIGNER): Probably multifactorial. Check labs and followup to re-evaluate Assessment & Plan (04/02/2023 2:20 PM CDT): Probably multifactorial. Check labs and followup to re-evaluate Breast cancer screening by mammogram 04/02/2023 08/26/2023 Assessment & Plan (04/02/2023 2:21 PM CDT): Mammogram order provided Urinary tract infection with hematuria 02/27/2023 08/26/2023 Assessment & Plan (02/27/2023 7:54 AM CDT): Pt presents with dysuria. Urine dip completed. Send urine culture. Antibiotic to pharmacy. Reviewed bladder care. Dysuria 02/27/2023 08/26/2023 Assessment & Plan (02/27/2023 7:54 AM CDT): Pt presents with dysuria. Urine dip completed. Send urine culture. Antibiotic to pharmacy. Reviewed bladder care. Annual physical exam 08/23/2022 023 Assessment & Plan (08/26/2023 5:37 PM CDT): Encouraged healthy lifestyle, good nutrition and exercise. Encouraged Calcium and Vitamin D and weight bearing exercise for bone health. Reviewed immunizations Reviewed age appropirate screenings. Assessment & Plan (08/23/2022 8:34 PM CDT): Encouraged healthy lifestyle, good nutrition and exercise. Encouraged Calcium and Vitamin D and weight bearing exercise for bone health. Reviewed immunizations Reviewed age appropirate screenings. Flu vaccine need 08/23/2022 08/26/2023 Assessment & Plan (08/23/2022 8:34 PM CDT): Flu vaccine updated in the office BMI 26.0-26.9,adult 08/23/2022 04/02/20 23 Assessment & Plan (08/23/2022 8:34 PM CDT): Weight/BMI is in healthy range. Continue healthy lifestyle to maintain. BMI 25.0-25.9,adult 02/21/2022 08/23/20 Assessment & Plan (02/21/2022 11:34 AM CDT): Weight/BMI is in healthy range. Continue healthy lifestyle to maintain. BMI 26.0-26.9,adult 02/10/2022 02/22/20 Assessment & Plan (02/10/2022 9:24 AM CDT): Weight/BMI is in healthy range. Continue healthy lifestyle to maintain. Viral URI 01/30/2022 08/23/2022 Assessment & Plan (02/11/2022 9:36 PM CDT): Improving. Negative for pneumonia so probable viral versus other type of bacterial infection. Encouraged her to complete the Levaquin. Complete the Medrol Dosepak. Continue with the albuterol as needed. Tessalon Perles were sent for cough to use as needed. Call if symptoms worsen or do not completely resolve. Assessment & Plan (01/30/2022 11:04 AM CDT): Start antihistamine (Claritin OR Zyrtec), Mucinex 12hour and Steroid nasal spray (Flonase). Push fluids. Rest. Supportive care. If sxs worsen or don\'t improve, pt is to followup in the office. Fatigue 10/07/2021 02/24/2022 Assessment & Plan (10/07/2021 9:58 PM FURRIER DESIGNER): Probably multifactorial. Check labs and followup to re-evaluate Flu vaccine need 10/07/2021 02/24/2022 Assessment & Plan (10/07/2021 9:58 PM FURRIER DESIGNER): Flu vaccine updated in the office today BMI 26.0-26.9,adult 07/19/2021 02/11/20 Assessment & Plan (07/19/2021 9:12 AM CDT): Weight/BMI is in healthy range. Continue healthy lifestyle to maintain. Breast cancer screening by mammogram 07/19/2021 08/23/2022 Assessment & Plan (02/24/2022 10:40 PM CDT): Mammogram order provided Assessment & Plan (07/19/2021 9:18 PM CDT): Mammogram order provided Annual physical exam 07/18/2021 022 Assessment & Plan (07/19/2021 9:18 PM CDT): Encouraged healthy lifestyle, good nutrition and exercise. Encouraged Calcium and Vitamin D and weight bearing exercise for bone health. Reviewed immunizations Reviewed age appropirate screenings. BMI 25.0-25.9,adult 01/13/2021 07/19/20 21 Assessment & Plan (01/13/2021 9:21 AM FURRIER DESIGNER): Weight/BMI is in healthy range. Continue healthy lifestyle to maintain. Medicare annual wellness visit, subsequent 01/12/2021 08/23/2022 Assessment & Plan (02/24/2022 10:40 PM CDT): Encouraged healthy lifestyle, good nutrition and exercise. Encouraged Calcium and Vitamin D and weight bearing exercise for bone health. Reviewed immunizations. Reviewed age appropirate screenings. Medicare Wellness Documentation is completed within the chart Assessment & Plan (01/12/2021 9:53 PM FURRIER DESIGNER): Encouraged healthy lifestyle, good nutrition and exercise. Encouraged Calcium and Vitamin D and weight bearing exercise for bone health. Reviewed immunizations. Reviewed age appropirate screenings. Medicare Wellness Documentation is completed within the chart Positive depression screening 01/05/2020 05/31/2020 Assessment & Plan (01/05/2020 11:14 AM FURRIER DESIGNER): Known depression. See depression for treatment plan Medicare annual wellness visit, subsequent 01/05/2020 05/31/2020 Assessment & Plan (01/05/2020 11:15 AM FURRIER DESIGNER): Encouraged healthy lifestyle, good nutrition and exercise. Encouraged Calcium and Vitamin D and weight bearing exercise for bone health. Reviewed immunizations Reviewed age appropirate screenings. Documentation is on the chart Cigarette smoker 01/05/2020 11/24/2020 Assessment & Plan (08/22/2020 10:45 PM CDT): Encouraged smoking cessation. Discussed 3 minutes. Reviewed options for assistance with cessation. Reviewed terminal manager sequela associated with smoking. Pt declines assistance at this time but may contact the office at anytime for further help as they desire. Assessment & Plan (01/05/2020 8:23 AM FURRIER DESIGNER): Encouraged smoking cessation. Discussed 3 minutes. Reviewed options for assistance with cessation. Reviewed intermediate sequela associated with smoking. Pt declines assistance [...] consider curative lung surgery if needed. [id number] Bilateral thumb pain 01/05/2020 024 Assessment & Plan (01/05/2020 11:13 AM FURRIER DESIGNER): This is a significant, separately identifiable problem that was evaluated and managed on the same day as the wellness exam Refer to Ortho hand for further evaluation. No NSAIDs due to renal function. BMI 25.0-25.9,adult 10/20/2019 01/14/20 21 Assessment & Plan (08/22/2020 10:45 PM CDT): Weight/BMI is in healthy range. Continue healthy lifestyle to maintain. Assessment & Plan (01/05/2020 7:41 AM FURRIER DESIGNER): Weight/BMI is in healthy range. Continue healthy lifestyle to maintain. Assessment & Plan (10/20/2019 8:35 AM FURRIER DESIGNER): Weight/BMI is in healthy range. Continue healthy lifestyle to maintain. Need for 23-polyvalent pneum ococcal polysaccharide vaccine 08/25/2019 10/20/2019 Assessment & Plan (08/25/2019 8:34 AM CDT): Updated in office today BMI 24.0-24.9, adult 06/30/2019 024 Assessment & Plan (03/08/2024 11:43 PM CDT): Weight/BMI is in healthy range. Continue healthy lifestyle to maintain. Assessment & Plan (08/25/2019 7:55 AM CDT): Weight/BMI is in healthy range. Continue healthy lifestyle to maintain. Assessment & Plan (06/30/2019 7:47 AM CDT): Weight/BMI is in healthy range. Continue healthy lifestyle to maintain. PND (post-nasal drip) 06/30/20192019 BMI 23.0-23.9, adult 02/19/2019 019 Assessment & Plan (04/02/2019 8:19 AM CDT): Weight/BMI is in healthy range. Continue healthy lifestyle to maintain. Assessment & Plan (02/19/2019 3:29 PM CDT): BMI Follow-up includes: Discussed diet and exercising counseling. Other fatigue 02/19/2019 01/12/2021 Assessment & Plan (01/05/2020 11:15 AM FURRIER DESIGNER): Probably multifactorial. Check labs and followup to re-evaluate Assessment & Plan (10/20/2019 1:43 PM FURRIER DESIGNER): Check labs Elevated serum creatinine 02/19/2019 Immunizations Name Administration Dates Next Due COVID-19 mRNA ([id number]) 0.3 m L (30 mcg) vaccine (12 years and up) 08/19/2023 Influenza Virus Vaccine Trivalent Mdv 08/19/2018 ,11/15/2017 Influenza, Quad, Adjuvantate d, Intramuscular 08/19/2020 Influenza, Quadrivalent, Hig h Dose, Preservative Free, Intrr 08/14/2023,08/23/2022,08/23/2021,08/07 Influenza, Trivalent, Adjuva nted, Intramuscular 08/19/2018,11/15/2017 Influenza, Trivalent, High D ose, Split, Preservative Free, Intramuscular 09/02/2024,08/07/2019,08/12/2018 Influenza, Unspecified 12/13/2022(Deferr ed: Patient Refused),08/07/2019,08/12/2018 Pfizer SARS-CoV-2 Monovalent Vaccination (12+ Yrs) PURPLE 09/06/2021,02/01/2021,01/11/2021 Pfizer Sars-Cov-2 Bivalent V accination (12+ YRS) 10/15/2022 Pneumococcal Conjugate PCV 13 08/19/2018 Pneumococcal Polysaccharide PPV23 08/19/2020, RSV, Bivalent, Protein Subun it Rsvpref, Diluent (Abrysvo) 08/24/2023 Tdap 09/23/2020 ZOSTER Recombinant 11/22/2020,09/23/2020 Social History Tobacco Use Types Packs/Day Years [...] on file Legal Sex Female 12:08 AM FURRIER DESIGNER Gender Identity Not on file Sexual Orientation Not on file Occupation Industry Job Start Date Job End Date Retired Not on file Not on file Not on file Last Filed Vital Signs Vital Sign Reading Time Taken Comments Blood Pressure 120/72 09/02/2024 9:09 AM CDT Pulse 75 09/02/2024 9:09 AM CDT Temperature 36.6 ??C (97.9 ??F) 09/02/2024 9:09 AM CD T Respiratory Rate - - Oxygen Saturation 98% 09/02/2024 9:09 AM CDT Inhaled Oxygen Concentration - - Weight 64.9 kg (143 lb) 09/18/2024 11:43 AM FURRIER DESIGNER Height 157.5 cm (5' 2 ) 09/18/2024 11:43 AM FURRIER DESIGNER Body Mass Index 26.16 09/18/2024 11:43 AM FURRIER DESIGNER Plan of Treatment Not on file Procedures Procedure Name Priority Date/Time Associated Diagnosis Comments CT LUNG CANCER SCREENING Schedule Routine, Read Routine (OP Routine) 11/03/2024 2:19 PM FURRIER DESIGNER Former smoker WA ARTHROCENTESIS ASPIR&/INJ SMALL JT/BURSA W/O US Routine 09/25/2024 10:45 AM FURRIER DESIGNER Localized osteoarthritis of hand, unspecified laterality WA ARTHROCENTESIS ASPIR&/INJ SMALL JT/BURSA W/O US Routine 09/25/2024 10:45 AM FURRIER DESIGNER Localized osteoarthritis of hand, unspecified laterality WA ARTHROCENTESIS ASPIR&/INJ SMALL JT/BURSA W/O US Routine 09/25/2024 10:45 AM FURRIER DESIGNER Localized osteoarthritis of hand, unspecified laterality WA ARTHROCENTESIS ASPIR&/INJ SMALL JT/BURSA W/O US Routine 09/25/2024 10:45 AM FURRIER DESIGNER Localized osteoarthritis of hand, unspecified laterality WA ARTHROCENTESIS ASPIR&/INJ SMALL JT/BURSA W/O US Routine 09/25/2024 10:45 AM FURRIER DESIGNER Localized osteoarthritis of hand, unspecified laterality WA ARTHROCENTESIS ASPIR&/INJ MAJOR JT/BURSA W/O US Routine 09/18/2024 11:15 AM FURRIER DESIGNER Rotator cuff tear arthropathy, left Bilateral shoulder pain, unspecified chronicity DEXA AXIAL SKELETON BONE DENSITY 1 OR MORE SITES Schedule Routine, Read Routine (OP Routine) 07/30/2024 8:12 AM CDT Menopause SCREENING MAMMOGRAM BILATERAL W DAMIEN Schedule Routine, Read Routine (OP Routine) 07/29/2024 3:15 PM CDT Breast cancer screening by mammogram HM COLONOSCOPY Routine 06/02/2019 from Last 3 Months or Most Recently Relevant to Health Maintenance Results * CT Lung Cancer Screening (11/03/2024 2:19 PM FURRIER DESIGNER) Anatomical Region Laterality Modality Chest N/A Computed Tomogra phy us Gabi DURÁN IMG CT PROCEDURES Final Re sult * WA ARTHROCENTESIS ASPIR&/INJ SMALL JT/BURSA W/O US (09/25/2024 10:45 AM FURRIER DESIGNER) Narrative Vianey Warren PA - 09/25/2024 10:45 AM FURRIER DESIGNER Vianey Warren PA ? 09/29/2024 10:37 AM Small Joint (Foot, Fingers, Toes) Injection: [...] IN CLINIC/BEDSIDE ORDERABLES F inal Result * WA ARTHROCENTESIS ASPIR&/INJ SMALL JT/BURSA W/O US (09/25/2024 10:45 AM FURRIER DESIGNER) Narrative Vianey Warren PA - 09/25/2024 10:45 AM FURRIER DESIGNER Vianey Warren PA ? 09/29/2024 10:37 AM Small Joint (Foot, Fingers, Toes) Injection: [...] the procedure well with no immediate complications Vianey DURÁN IN CLINIC/BEDSIDE ORDERABLES F inal Result * WA ARTHROCENTESIS ASPIR&/INJ SMALL JT/BURSA W/O US (09/25/2024 10:45 AM FURRIER DESIGNER) Narrative Vianey Warren PA - 09/25/2024 10:45 AM FURRIER DESIGNER Vianey Warren PA ? 09/29/2024 10:37 AM Small Joint (Foot, Fingers, Toes) Injection: R thumb IP Performed by: Vianey Warren PA Authorized by: Vianey Warren PA ?? Small Joint Injection/Aspiration: ??Consent Given by: ??Patient ??Verbal consent obtained?: Yes ?Written consent obtained?: No ?? Supporting Documentation: ??Indications: ??Pain Procedure Details: ??Location: ??Thumb ??Site: ??R thumb IP ??Prep: patient was prepped and draped in usual sterile fashion ?Needle Size: ??27 G ??Approach: ??Dorsal ??Ultrasound guidance: No ?Medications: ??1 mL lidocaine 10 mg/mL (1 %); 5 mg triamcinolone 40 mg/mL ??Patient tolerance: ??Patient tolerated the procedure well with no immediate complications Vianey DURÁN IN CLINIC/BEDSIDE ORDERABLES F inal Result * WA ARTHROCENTESIS ASPIR&/INJ SMALL JT/BURSA W/O US (09/25/2024 10:45 AM FURRIER DESIGNER) Narrative Vianey Warren PA - 09/25/2024 10:45 AM FURRIER DESIGNER Vianey Warren PA ? 09/29/2024 10:37 AM Small Joint (Foot, Fingers, Toes) Injection: L thumb CMC Performed by: Vianey Warren PA Authorized by: Vianey Warren PA ?? Small Joint Injection/Aspiration: ??Consent Given by: ??Patient ??Verbal consent obtained?: Yes ?Written consent obtained?: No ?? Supporting Documentation: ??Indications: ??Pain Procedure Details: ??Location: ??Thumb ??Site: ??L thumb CMC ??Prep: patient was prepped and draped in usual sterile fashion ?Needle Size: ??27 G ??Approach: ??Dorsal ??Ultrasound guidance: No ?Medications: ??1 mL lidocaine 10 mg/mL (1 %); 10 mg triamcinolone 40 mg/mL ??Patient tolerance: ??Patient tolerated the procedure well with no immediate complications Vianey DURÁN IN CLINIC/BEDSIDE ORDERABLES F inal Result * WA ARTHROCENTESIS ASPIR&/INJ SMALL JT/BURSA W/O US (09/25/2024 10:45 AM FURRIER DESIGNER) Narrative Vianey Warren PA - 09/25/2024 10:45 AM FURRIER DESIGNER Vianey Warren PA ? 09/29/2024 10:37 AM Small Joint (Foot, Fingers, Toes) Injection: [...] ??1 mL lidocaine 10 mg/mL (1 %); 10 mg triamcinolone 40 mg/mL ??Patient tolerance: ??Patient tolerated the procedure well with no immediate complications us Vianey DURÁN IN CLINIC/BEDSIDE ORDERABLES F inal Result * WA ARTHROCENTESIS ASPIR&/INJ MAJOR JT/BURSA W/O US (09/18/2024 11:15 AM FURRIER DESIGNER) Narrative Lawson Hassan MD - 09/18/2024 11:15 AM FURRIER DESIGNER Lawson Hassan MD ? 09/18/2024 12:36 PM [...] procedure well with no immediate complications us Lawson Hassan MD IN CLINIC/BEDSIDE ORDERABL ES Final Result * (ABNORMAL) Dexa Axial Skeleton Bone Density 1 or 2 Site (07/30/2024 8:12 AM CDT) SCRIBED DXA T-SCORE -0.6 SCRIBED DXA Z-SCORE 1.6 SCRIBED DXA BMD 0.979 Anatomical Region Laterality Modality Body N/A Radiographic Juanis ging Gabi DURÁN IM DXA PROCEDURES Final R esult * Screening Mammogram Bilateral W Damine (07/29/2024 3:15 PM CDT) Anatomical Region Laterality Modality Breast Bilateral Mammography Gabi DUÁRN IMG MAMMO PROCEDURES Final Result * HM COLONOSCOPY (06/02/2019) HM Colonoscopy Abnormal Historical Provider MD HEALTH MAINTENANCE Final Result from Last 3 Months or Most Recently Relevant to Health Maintenance Insurance MEDICARE [employer] [facility] Address: [facility] [address] [place] [address] MEDICARE SOLUTIONS Care Teams Program Director Relationship Specialty Start Date End Date Gabi Victoria PA [address] [facility] [address] [place] [address] PCP - General Internal Medicine 02/19/19
--- OUTSIDE RECORDS SUMMARY | 2024-11-08 13:58 | XMS_ITS | Encounter Summary ---
Author Organization [facility] Healthcare Address [address] [place] [address] Care Team Providers Care Latcher Name Role Phone Gabi Victoria Primary Care Provider [phone]- [phone] Reason for Visit * Reason Comments Follow-up Follow-up Encounter Details Date Type Department Care Team ([facility] Contact Info) Description 11/22/2023 10:00 AM STATE FARM AGENT TEAM MEMBER Office Visit [facility] Medical Group Hand Surgery [address] [facility] [address] [place] [address] Vianey Warren PA [address] [place] [address] [address] [place] [address] Osteoarthritis of carpometacarpal (CMC) joint of right thumb, unspecified osteoarthritis type (Primary Dx) Social History Tobacco Use Types [...] on file Legal Sex Female 12:08 AM STATE FARM AGENT TEAM MEMBER Gender Identity Not on file Sexual Orientation Not on file Occupation Industry Job Start Date Job End Date Retired Not on file Not on file Not on file documented as of this encounter Progress Notes * Vianey Warren PA - 11/22/2023 10:00 AM CST Images from the original note were not included. Patient ID: Ani Ortiz is a 73 y.o. female. Visit Date: 11/22/2023 Chief Complaint: Chief Complaint Patient presents with Left Hand - Follow-up Right Hand - Follow-up HPI: Patient is a 73-year-old female presents today for scheduled follow-up. At her visit with me 4 weeks ago she had complained of pain to both thumbs. She received corticosteroid injection of bilateral thumb CMC and MCP joints. She reports that she has had significant improvement of her pain, and is very happy with results. Physical Exam: General: A&O x 3, NAD, Well appearing Eyes: EOMs intact. PERRL. Integument: skin is warm and dry. Neuro: CN II-XII grossly intact. Pt gait is stable, balance WNL. Sensation intact. Cardiovascular: 2+ capillary refill to all upper digits bilaterally. On examination of both upper extremities she is nontender over the thumb CMC and MCP joints. She isable to achieve full active composite flexion extension of both hands without difficulty. She is neurovascularly intact to tips of digits. X-rays/Imaging: No diagnosis found. Assessment/Plan There are no diagnoses linked to this encounter. Treatment / Plan: Patient is 4 weeks status post corticosteroid injections as described above. She needs no further scheduled follow-up, and will return as needed. I have asked her to call the office with any questions or concerns. Procedures LUIS ARMANDO Cintron E FARM AGENT TEAM MEMBER documented in this encounter Plan of Treatment Not on file documented as of this encounter Visit Diagnoses Diagnosis Osteoarthritis of carpometacarpal (CMC) joint of right thumb, unspecified osteoarthritis type- Primary documented in this encounter Care Teams Latcher Relationship Specialty Start Date End Date Gabi Victoria PA [address] [facility] [address] [place] [address] PCP - General Internal Medicine 02/19/19 documented as of this encounter
--- OUTSIDE RECORDS SUMMARY | 2024-11-08 13:58 | XMS_ITS | Encounter Summary ---
Author Organization [facility] Healthcare Address [address] [place] [address] Care Team Providers Care Roof Service Technician Name Role Phone Gabi Victoria Primary Care Provider [phone]- [phone] Encounter Details Date Type Department Care Team (Late st Contact Info) Description 04/10/2024 Telephone [facility] Medical Group Family Medicine [address] [place] [address] Gabi Victoria PA [address] [place] [address] Social History Tobacco Use Types Packs/Day Years [...] on file Legal Sex Female 12:08 AM CLOTHING EXAMINER Gender Identity Not on file Sexual Orientation Not on file Occupation Industry Job Start Date Job End Date Retired Not on file Not on file Not on file documented as of this encounter Miscellaneous Notes * Telephone Encounter - Yiemi Cordoba LPN - 04/11/2024 2:37 PM CDT Pt mycharted and stated she is doing better. Will contact office if she does not continue to improve * Telephone Encounter - Yeimi Cordoba LPN - 04/11/2024 10:45 AM CDT Called and LVM and sent mychart message. * Telephone Encounter - Lea Cheng - 04/10/2024 11:00 AM CDT Pt was seen at [facility] ER on 04/10/24 for: Extremity Injury (Lower) Andle injury See Attached Notes Staff will call to f/u with pt documented in this encounter Plan of Treatment Not on file documented as of this encounter Visit Diagnoses Not on filedocumented in this encounter Care Teams Roof Service Technician Relationship Specialty Start Date End Date Gabi Victoria PA [address] [facility] [address] [place] [address] PCP - General Internal Medicine 02/19/19 documented as of this encounter
--- OUTSIDE RECORDS SUMMARY | 2024-11-08 13:58 | XMS_ITS | Encounter Summary ---
Author Organization [facility] Healthcare Address [address] [place] [address] Care Team Providers Care Knife Blade Polisher Name Role Phone Gabi Victoria Primary Care Provider +1- [phone] Encounter Details Date Type Department Care Team (Late st Contact Info) Description 03/24/2024 Orders Only [facility] [address] [place] [address] Scanning, Provider Social History Tobacco Use Types [...] on file Legal Sex Female 12:08 AM LUMPIA WRAPPER MAKER Gender Identity Not on file Sexual Orientation Not on file Occupation Industry Job Start Date Job End Date Retired Not on file Not on file Not on file documented as of this encounter Plan of Treatment Not on file documented as of this encounter Procedures Procedure Name Priority Date/Time Associated Diagnosis Comments SCAN - RADIOLOGY/IMAGING 03/24/2024 documented in this encounter Results * SCAN - RADIOLOGY/IMAGING (03/24/2024) Anatomical Region Laterality Modality Other us Provider Scanning Final Result documented in this encounter Visit Diagnoses Not on filedocumented in this encounter Care Teams Knife Blade Polisher Relationship Specialty Start Date End Date Gabi Victoria PA [address] [facility] [address] [place] [address] PCP - General Internal Medicine 02/19/19 documented as of this encounter
--- OUTSIDE RECORDS SUMMARY | 2024-11-08 13:58 | XMS_ITS | Encounter Summary ---
Author Organization [facility] Address [address] [place] [address] Care Team Providers Care Women'S Soccer Coach Name Role Phone Gabi Victoria Primary Care Provider [phone] Reason for Referral * Diagnostic Imaging (Routine) - Closed Specialty Diagnoses / Procedures Referred By Hiram t Referred To Contact Diagnoses Bilateral shoulder pain, unspecified chronicity Procedures XR Shoulder Left 2 or More Views Lawson Hassan MD [address] [place] [address] [address] [place] [id number] Phone: tel: fax: [address] [phone] Referral ID Status Reason Start Date Expiration Date Visits Re quested Visits Authorized [id number] Closed 03/10/2024 04/09/2025 1 1 Reason for Visit * Diagnostic Imaging (Routine) - Closed Specialty Diagnoses / Procedures Referred By Hiram t Referred To Contact Diagnoses Bilateral shoulder pain, unspecified chronicity Procedures XR Shoulder Left 2 or More Views Lawson Hassan MD [address] [place] [address] [address] [place] [id number] Phone: tel: fax: [address] [phone] Referral ID Status Reason Start Date Expiration Date Visits Re quested Visits Authorized [id number] Closed 03/10/2024 04/09/2025 1 1 Encounter Details Date Type Department Care Team (Latest Contact Info) Description 03/13/2024 10:18 AM CDT - 03/13/2024 11:59 PM CDT Hospital Encounter [facility] [address] [place] [address] Bilateral shoulder pain, unspecified chronicity Discharge Disposition: Discharge to home or self care Social History Tobacco Use Types Packs/Day Years [...] on file 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 Gender Identity Not on file Sexual Orientation Not on file Occupation Industry Job Start Date Job End Date Retired Not on file Not on file Not on file documented as of this encounter Medications at Time of Discharge aspirin 81 mg chewable tabletIndications:Co ronary artery calcification seen on CT scan Take 1 tablet (81 mg total) by mouth daily 30 tablet 11 11/24/2020 cyanocobalamin (Vitamin B-12) 100 mcg tabletIndications:Pr evention of Vitamin B12 Deficiency Take 1 tablet (100 mcg total) by mouth daily fluticasone propionate (FLONASE) 50 mcg/actuation nasal spray SHAKE LIQUID AND USE 2 SPRAYS IN EACH NOSTRIL DAILY 48 g 1 01/31/2022 ondansetron ODT (ZOFRAN-ODT) 4 mg disintegrating tablet DISSOLVE ONE TABLET BY MOUTH EVERY 8 HOURS NEEDED FOR NUASEA AND VOMITING 11/30/2023 tamsulosin (FLOMAX) 0.4 mg extended release capsule TAKE 1 CAPSULE BY MOUTH DAILY. CONTINUE UNTIL STONE HAS PASSED 08/22/2023 vit D3-vit V-hbmrlojfk-wvkz [phone] nibq-dpe-ow-mg tablet Take 50 mcg by mouth albuterol HFA (ProAir HFA) 90 mcg/actuation inhaler Inhale 2 puffs every 4 (four) hours as needed for wheezing or shortness of breath 8.5 g 02/08/2022 4 buPROPion XL (WELLBUTRIN XL) 300 mg 24 hr tabletIndications:An xiety TAKE 1 TABLET(300 MG) BY MOUTH EVERY MORNING 90 tablet 1 12/03/2023 4 busPIRone (BUSPAR) 15 mg tabletIndications:Ge neralized Anxiety Disorder Take 1 tablet (15 mg total) by mouth 3 (three) times a day 90 tablet 1 02/28/2024 4 clonazePAM (KlonoPIN) 1 mg tabletIndications:An xiety Take 1 tablet (1 mg total) by mouth every 8 (eight) hours as needed for anxiety 30 tablet 03/05/2024 4 cranberry 400 mg capsule Take by mouth 4 rosuvastatin (CRESTOR) 40 mg tabletIndications:Co ronary artery calcification seen on CT scan,Mixed hyperlipidemia Take 1 tablet (40 mg total) by mouth daily 90 tablet 3 09/25/2023 4 valACYclovir (VALTREX) 1 gram tablet Take TWO tabs po at onset of cold sore. Take TWO tabs po 12 hours later. 20 tablet 02/13/2024 4 vortioxetine (TRINTELLIX) 20 mg tabletIndications:ma cyrus depressive disorder Take 1 tablet (20 mg total) by mouth daily 90 tablet 1 01/07/2024 4 zolpidem (AMBIEN) 5 mg tabletIndications:Sl eep-Onset Insomnia Take 1 tablet (5 mg total) by mouth nightly as needed for sleep 90 tablet 02/12/2024 4 documented as of this encounter Discharge Disposition Disposition Code Departure Means Destination Discharge to home or self care documented in this encounter Plan of Treatment Not on file documented as of this encounter Procedures Procedure Name Priority Date/Time Associated Diagnosis Comments XR SHOULDER RIGHT 2 OR MORE VIEWS Schedule Routine, Read Routine (OP Routine) 03/13/2024 10:32 AM CDT Bilateral shoulder pain, unspecified chronicity XR SHOULDER LEFT 2 OR MORE VIEWS Schedule Routine, Read Routine (OP Routine) 03/13/2024 10:32 AM CDT Bilateral shoulder pain, unspecified chronicity documented in this encounter Results * XR Shoulder Left 2 or More Views (03/13/2024 10:32 AM CDT) Anatomical Region Laterality Modality Upper Extremities, Shoulder Left Comp uted Radiography 03/13/2024 5:45 PM CDT Narrative 03/13/2024 5:47 PM CDT EXAM DESCRIPTION: XR SHOULDER RIGHT 2 OR MORE VIEWS; XR SHOULDER LEFT 2 OR MORE VIEWS REASON FOR STUDY: bilateral shoulder pain ?? Bilateral shoulder pain with ROM x 1 yr, L>R ? FINDINGS: Four views each shoulder submitted without comparison. Right shoulder: No acute fractures are identified. ??There is mild right glenohumeral and acromioclavicular joint osteoarthritis. ??Alignment is normal. Left shoulder: No acute fractures are identified. ??There is moderate glenohumeral and mild acromioclavicular joint osteoarthritis. ??There is superior subluxation of the humeral head with narrowing of the subacromial space. ??Arterial atherosclerosis is present. IMPRESSION: Mild right glenohumeral and acromioclavicular joint osteoarthritis. Moderate left glenohumeral and mild acromioclavicular joint osteoarthritis. Superior subluxation of the left humeral head with narrowing of the subacromial space, which can be associated with rotator cuff pathology. THIS IS AN ELECTRONICALLY VERIFIED FINAL REPORT 03/13/2024 5:47 PM - Electronically signed by ??Miguel Mcfarland M.D. D: ??03/13/2024 5:47 PM T: Report ID: [id number] Reading Location: ??[id number] Procedure Note Miguel Mcfarland MD - 03/13/2024 EXAM DESCRIPTION: XR SHOULDER RIGHT 2 OR MORE VIEWS; XR SHOULDER LEFT 2 OR MORE VIEWS REASON FOR STUDY: bilateral shoulder pain Bilateral shoulder pain with ROM x 1 yr, L>R FINDINGS: Four views each shoulder submitted without comparison. Right shoulder: No acute fractures are identified. There is mild right glenohumeral and acromioclavicular joint osteoarthritis. Alignment is normal. Left shoulder: No acute fractures are identified. There is moderate glenohumeral andmild acromioclavicular joint osteoarthritis. There is superior subluxation ofthe humeral head with narrowing of the subacromial space. Arterial atherosclerosis is present. IMPRESSION: Mild right glenohumeral and acromioclavicular joint osteoarthritis. Moderate left glenohumeral and mild acromioclavicular jointosteoarthritis. Superior subluxation of the left humeral head with narrowing of the subacromial space, which can be associated with rotator cuff pathology. THIS IS AN ELECTRONICALLY VERIFIED FINAL REPORT 03/13/2024 5:47 PM - Electronically signed by Miguel Mcfarland M.D. T: Report ID: [id number] Reading Location: [place] [address] Lawson Hassan MD IMG XR PROCEDURES Final Re sult * XR Shoulder Right 2 or More Views (03/13/2024 10:32 AM CDT) Anatomical Region Laterality Modality Upper Extremities, Shoulder Right Comp uted Radiography 03/13/2024 5:45 PM CDT Narrative 03/13/2024 5:47 PM CDT EXAM DESCRIPTION: XR SHOULDER RIGHT 2 OR MORE VIEWS; XR SHOULDER LEFT 2 OR MORE VIEWS REASON FOR STUDY: bilateral shoulder pain ?? Bilateral shoulder pain with ROM x 1 yr, L>R ? FINDINGS: Four views each shoulder submitted without comparison. Right shoulder: No acute fractures are identified. ??There is mild right glenohumeral and acromioclavicular joint osteoarthritis. ??Alignment is normal. Left shoulder: No acute fractures are identified. ??There is moderate glenohumeral and mild acromioclavicular joint osteoarthritis. ??There is superior subluxation of the humeral head with narrowing of the subacromial space. ??Arterial atherosclerosis is present. IMPRESSION: Mild right glenohumeral and acromioclavicular joint osteoarthritis. Moderate left glenohumeral and mild acromioclavicular joint osteoarthritis. Superior subluxation of the left humeral head with narrowing of the subacromial space, which can be associated with rotator cuff pathology. THIS IS AN ELECTRONICALLY VERIFIED FINAL REPORT 03/13/2024 5:47 PM - Electronically signed by ??Miguel Mcfarland M.D. D: ??03/13/2024 5:47 PM T: Report ID: [id number] Reading Location: ??[id number] Procedure Note Miguel Mcfarland MD - 03/13/2024 EXAM DESCRIPTION: XR SHOULDER RIGHT 2 OR MORE VIEWS; XR SHOULDER LEFT 2 OR MORE VIEWS REASON FOR STUDY: bilateral shoulder pain Bilateral shoulder pain with ROM x 1 yr, L>R FINDINGS: Four views each shoulder submitted without comparison. Right shoulder: No acute fractures are identified. There is mild right glenohumeral and acromioclavicular joint osteoarthritis. Alignment is normal. Left shoulder: No acute fractures are identified. There is moderate glenohumeral andmild acromioclavicular joint osteoarthritis. There is superior subluxation ofthe humeral head with narrowing of the subacromial space. Arterial atherosclerosis is present. IMPRESSION: Mild right glenohumeral and acromioclavicular joint osteoarthritis. Moderate left glenohumeral and mild acromioclavicular jointosteoarthritis. Superior subluxation of the left humeral head with narrowing of the subacromial space, which can be associated with rotator cuff pathology. THIS IS AN ELECTRONICALLY VERIFIED FINAL REPORT 03/13/2024 5:47 PM - Electronically signed by Miguel Mcfarland M.D. T: Report ID: [id number] Reading Location: [id number] Lawson Hassan MD IMG XR PROCEDURES Final Re sult documented in this encounter Visit Diagnoses Diagnosis Bilateral shoulder pain, unspecified chronicity documented in this encounter Care Teams Women'S Soccer Coach Relationship Specialty Start Date End Date Gabi Victoria PA [address] [place] [address] PCP - General Internal Medicine 02/19/19 documented as of this encounter
--- OUTSIDE RECORDS SUMMARY | 2024-11-08 13:58 | XMS_ITS | Encounter Summary ---
Author Organization [facility] Address [address] [place] [address] Care Team Providers Care Hydraulic Strainer Operator Name Role Phone Gabi Victoria Primary Care Provider [phone]- [phone] Reason for Referral * Procedure (Routine) - Authorized Specialty Diagnoses / Procedures Referred By Hiram t Referred To Contact Diagnoses Bilateral shoulder pain, unspecified chronicity Primary osteoarthritis of shoulders, bilateral Procedures Large Joint (Hip, Knee, Shoulder) Injection: bilateral glenohumeral Lawson Hassan MD [address] [place] [address] [address] WOR[address] [place] [address] Phone: tel: fax: [facility] Referral ID Status Reason Start Date Expiration Date V isits Requested Visits Authorized [id number] Authorized 03/13/2024 04/12/2025 1 1 * Diagnostic Imaging (Routine) - Closed Specialty Diagnoses / Procedures Referred By Hiram chance Referred To Contact Diagnoses Bilateral shoulder pain, unspecified chronicity Procedures XR Shoulder Left 2 or More Views Lawson Hassan MD [address] [place] [address] DR WORLEY [address] [place] [address] Phone: tel: fax: [address] [phone] Referral ID Status Reason Start Date Expiration Date Visits Re quested Visits Authorized [id number] Closed 03/10/2024 04/09/2025 1 1 Reason for Visit * Reason Comments Pain Pain Encounter Details Date Type Department Care Team (Late st Contact Info) Description 03/13/2024 10:30 AM CDT Office Visit [facility] Orthopedics and Sports Medicine [address] [place] [address] [address] [place] [phone] Lawson Hassan MD [address] [place] [address] [address] [place] [address] Rotator cuff tear arthropathy, left (Primary Dx); Bilateral shoulder pain, unspecified chronicity; Primary osteoarthritis of shoulders, bilateral; History of arthroscopy of left shoulder Social History Tobacco Use Types Packs/Day Years [...] on file 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 Visit Date: 03/13/2024 CHIEF COMPLAINT Pain of the Left Shoulder and Pain of the Right Shoulder HISTORY OF PRESENT ILLNESS Ani Ortiz is a 73 y.o. female who was seen today for consultation requested by LUIS ARMANDO Parker for her bilateral shoulders. Today patient reports chronic bilateral shoulder pain with her left worse than her right. This beenongoing for the past 6 months. Patient is severely limited with range of motion. She also has a lotof weakness in her arm, and often drops items with attempts to lift. Patient often hears popping noises in her left shoulder. For conservative measures, patient has tried physical therapy, and cortisone injections several years ago. Patient is not able to take any NSAIDS. For pain management she intermittently takes Tylenol. Of note, patient had a left shoulder arthroscopy surgery in 2013 in [place], that was successful. Patient moved into the area in 2017. PAST MEDICAL HISTORY She has a past medical history of Allergic rhinitis, Anxiety, COPD (chronic obstructive pulmonary disease) ([facility]), Coronary artery calcification, Depression, Emphysema of lung ([facility]), Hyperlipidemia, Kidney stones, and Mixed conductive and sensorineural hearing loss. PAST SURGICAL HISTORY She has a past surgical history that includes Colonoscopy (2016); Cataract extraction (2014); Shoulder surgery (Left, 2014); Tonsillectomy (1970); Cholecystectomy (2014); Hysterectomy (1981); Rhinoplasty; Cosmetic surgery (1977); and Bladder surgery (1987). MEDICATIONS She has a current medication list which includes the following prescription(s): bupropion xl, buspirone, clonazepam, cyanocobalamin, fluticasone propionate, ondansetron odt, rosuvastatin, tamsulosin,valacyclovir, vit d3-vit u-hlseyzacz-djlg, vortioxetine, zolpidem, albuterol hfa, aspirin, and cranberry. ALLERGIES She is allergic to cephalexin, cephalosporins, penicillin v potassium, shellfish, and erythromycin. SOCIAL HISTORY reports that she quit smoking about 6 years ago. Her smoking use included cigarettes and vaping. She started smoking about 26 years ago. She has a 20 pack-year smoking history. She has never used smokeless tobacco. She reports that she does not use drugs. Patient reports consuming alcoholic drinks monthly or less, with a daily consumption of drinks. Patient denies daily consumption of 6 or more alcoholic drinks at one occasion. FAMILY HISTORY family history includes Cancer in her father; Cancer, gioblastoma in her father; Hyperlipidemia in her mother. REVIEW OF SYSTEMS Constitutional: Negative for chills and fever. Respiratory: Negative for shortness of breath. PHYSICAL EXAM Alert and Oriented X 3. No apparent distress. Hearing is intact to spoken word. Respirations regular. Neck range of motion is full. Negative Spurlings sign. left shoulder: The arm is warm and well perfused. Healed arthroscopy portals. The patient???s skin is intact across the upper extremity. Forward elevation is to 140??. External rotation with the arm at the side is to 30??. Internal rotation is to L5. 4/5 strength in resisted external rotation with the arm at the side. 4+/5 strength with resisted thumbs-down abduction, quite painful. Sensation is intact to light touch in the distribution of the radial, ulnar, median, and axillary nerves. Belly press test is negative. Hyatt Impingement test is negative. Speeds test is painful. Perea's test is painful. Cross body abduction test reproduces posterior shoulder pain. right shoulder: The arm is warm and well perfused. The patient???s skin is intact across the upper extremity. Forward elevation is to 140??. External rotation with the arm at the side is to 45??. Internal rotation is to L5. 4+/5 strength in resisted external rotation with the arm at the side. 4+/5 strength with resisted thumbs-down abduction. Sensation is intact to light touch in the distributionof the radial, ulnar, median, and axillary nerves. Belly press test is negative. Large Joint (Hip, Knee, Shoulder) Injection: bilateral glenohumeral Performed by: Lawson Hassan MD Authorized by: Lawson Hassan MD Large Joint Injection/Aspiration: Consent Given by: Patient Site marked: the procedure site was marked Timeout: prior to procedure the correct patient, procedure, and site was verified Verbal consent obtained: Yes Written consent obtained: No Supporting Documentation: Indications: Pain Procedure Details: Location: Shoulder Site: Bilateral glenohumeral Prep: patient was prepped using a clean technique Needle Size: 22 G Ultrasound guided: No Medications Right Large Joint Injection: 40 mg triamcinolone 40 mg/mL; 2 mL lidocaine 10 mg/mL (1 %) Medications Left Large Joint Injection: 40 mg triamcinolone 40 mg/mL; 2 mL lidocaine 10 mg/mL (1 %) Patient tolerance: Patient tolerated the procedure well with no immediate complications IMAGING I personally reviewed and interpreted XRay images of the patient's right shoulder from in office today on 03/13/2024 . These show mild narrowing of the superior right glenohumeral joint space. The humeral head appears well centered. Acromial morphology is normal. Minimal degenerative changes the acrom ioclavicular joint space. I personally reviewed and interpreted XRay images of the patient's left shoulder from in office today on 03/13/2024 . These show mild superior elevation of the left humeral head. There is moderate narrowing of the superior glenohumeral joint space. Small inferior humeral head osteophyte. There appears to be superior elevation on the AP view. Acromial morphology is normal. Minimal degenerative changes of the acromioclavicular joint space. Diagnoses and all orders for this visit: Bilateral shoulder pain, unspecified chronicity (Primary) - XR Shoulder Left 2 or More Views; Future - XR Shoulder Right 2 or More Views; Future - Large Joint (Hip, Knee, Shoulder) Injection: bilateral glenohumeral Primary osteoarthritis of shoulders, bilateral - Large Joint (Hip, Knee, Shoulder) Injection: bilateral glenohumeral History of arthroscopy of left shoulder ASSESSMENT Ani Ortiz is a 73 y.o. female with left shoulder rotator cuff tear arthropathy 2. Mild right shoulder osteoarthritis 3. Hx of left shoulder arthroscopic debridement with high grade chondral wear and likely infraspinatus tendon tear PLAN We reviewed the patient's history, symptoms, exam findings, and imaging today. I discussed treatment options with the patient including physical therapy versus home exercises, cortisone injection, ortreatment with topical medications. If conservative measures fail, we could further discuss more invasive measures. The patient elected to proceed with a cortisone injection and home exercises. Ubaldo chance received a cortisone injection in her bilateral glenohumeral joints in office today. See report for details. We will also give patient a packet of physician directed home exercises. They were instructed to call immediately if any concerns or adverse reactions arise, or symptoms worsen. Follow up in 3 months. Scribe Attestation By signing my name below, I, Ally Almodovar, attest that this documentation has been prepared underthe direction and in the presence of Dr Lawson Hassan MD Electronically signed: Jules Ashby. Provider Attestation I, Dr. Lawson Hassan MD personally performed the services described in this documentation. All medical record entries made by the scribe were at my direction and in my presence. I have reviewedthe chart and agree that the record reflects my personal performance and is accurate and complete. Electronically Signed: Dr Lawson Hassan MD documented in this encounter Plan of Treatment Not on file documented as of this encounter Procedures Procedure Name Priority Date/Time Associated Diagnosis Comments [place] ARTHROCENTESIS ASPIR&/INJ MAJOR JT/BURSA W/O US Routine 03/13/2024 10:30 AM CDT Bilateral shoulder pain, unspecified chronicity Primary osteoarthritis of shoulders, bilateral documented in this encounter Results * XR Shoulder Right 2 or More [...] D: ??03/13/2024 5:47 PM T: Report ID: [id number] Reading Location: ??[id number] Procedure Note Miguel Mcfarland MD - 03/13/2024 [...] by Miguel Mcfarland M.D. T: Report ID: [id number] Reading Location: [id number] Lawson Hassan MD IMG XR PROCEDURES Final Re sult * XR Shoulder Left 2 or More [...] D: ??03/13/2024 5:47 PM T: Report ID: [id number] Reading Location: ??[id number] Procedure Note Miguel Mcfarland MD - 03/13/2024 [...] by Miguel Mcfarland M.D. T: Report ID: [id number] Reading Location: [place] [address] us Lawson Hassan MD IMG XR PROCEDURES Final Re sult * NV ARTHROCENTESIS ASPIR&/INJ MAJOR JT/BURSA W/O US (03/13/2024 10:30 AM CDT) Narrative Lawson Hassan MD - 03/13/2024 10:30 AM CDT Lawson Hassan MD ? 03/13/2024 12:34 PM Large Joint (Hip, Knee, Shoulder) Injection: bilateral glenohumeral Performed by: Lawson Hassan MD Authorized by: Lawson Hassan MD ?? Large Joint Injection/Aspiration: ??Consent Given by: ??Patient ??Site marked: the procedure site was marked ?Timeout: prior to procedure the correct patient, procedure, and site was verified ?Verbal consent obtained: Yes ?Written consent obtained: No ?? Supporting Documentation: ??Indications: ??Pain Procedure Details: ??Location: ??Shoulder ??Site: ??Bilateral glenohumeral ??Prep: patient was prepped using a clean technique ?Needle Size: ??22 G ??Ultrasound guided: No ?Medications Right Large Joint Injection: ??40 mg triamcinolone 40 mg/mL; 2 mL lidocaine 10 mg/mL (1 %) ??Medications Left ??Large Joint Injection: ??40 mg triamcinolone 40 mg/mL; 2 mL lidocaine 10 mg/mL (1 %) ??Patient tolerance: ??Patient tolerated the procedure well with no immediate complications Lawson Hassan MD IN CLINIC/BEDSIDE ORDERABL ES Final Result documented in this encounter Visit Diagnoses Diagnosis Rotator cuff tear arthropathy, left- Primary Bilateral shoulder pain, unspecified chronicity Primary osteoarthritis of shoulders, bilateral History of arthroscopy of left shoulder Bilateral shoulder pain, unspecified chronicity documented in this encounter Administered Medications Inactive Administered Medications - up to 3 most recent administrations Medication Order MAR Action Action Date Dose Rate Site lidocaine (XYLOCAINE) 10 mg/mL (1 %) injection 2 mL 2 mL, One-Time Injection, Starting on Lucille 03/13/24 at 1030, For 1 dose, Indications: Administration of Local AnesthesiaIndications:Administrati on of Local Anesthesia Given 03/13/2024 10:30 AM CDT 2 mL lidocaine (XYLOCAINE) 10 mg/mL (1 %) injection 2 mL 2 mL, One-Time Injection, Starting on Lucille 03/13/24 at 1030, For 1 dose, Indications: Administration of Local AnesthesiaIndications:Administrati on of Local Anesthesia Given 03/13/2024 10:30 AM CDT 2 mL triamcinolone (KENALOG) 40 mg/mL injection 40 mg 40 mg, intra-articular, One-Time Injection, Starting on Lucille 03/13/24 at 1030, For 1 doseIndications:Bilateral shoulder pain, unspecified chronicity,Primary osteoarthritis of shoulders, bilateral Given 03/13/2024 10:30 AM CDT 40 mg triamcinolone (KENALOG) 40 mg/mL injection 40 mg 40 mg, intra-articular, One-Time Injection, Starting on Lucille 03/13/24 at 1030, For 1 doseIndications:Bilateral shoulder pain, unspecified chronicity,Primary osteoarthritis of shoulders, bilateral Given 03/13/2024 10:30 AM CDT 40 mg documented in this encounter Care Teams Hydraulic Strainer Operator Relationship Specialty Start Date End Date Gabi Victoria PA [address] [facility] [address] [place] [address] PCP - General Internal Medicine 02/19/19 documented as of this encounter
--- OUTSIDE RECORDS SUMMARY | 2024-11-08 13:58 | XMS_ITS | Encounter Summary ---
Author Organization [facility] Address [address] [place] [address] Care Team Providers Care Office Workforce Planner Name Role Phone Gabi Victoria Primary Care Provider +1- [phone] Reason for Referral * Procedure (Routine) - Authorized Specialty Diagnoses / Procedures Referred By Contaren t Referred To Contact Diagnoses Rotator cuff tear arthropathy, left Procedures Large Joint (Hip, Knee, Shoulder) Injection: L glenohumeral Lawson Hassan MD [address] [place] [address] [address] WORLEY [address] [place] [address] Phone: tel: fax: [facility] Referral ID Status Reason Start Date Expiration Date V isits Requested Visits Authorized [id number] Authorized 06/17/2024 07/17/2025 1 1 Reason for Visit * Reason Comments Pain Injections Encounter Details Date Type Department Care Team (Late st Contact Info) Description 06/17/2024 10:30 AM CDT Office Visit [facility] Orthopedics and Sports Medicine [address] [place] [address] [place] [phone] Lawson Hassan MD [address] [place] [address] [address] Rotator cuff tear arthropathy, left (Primary Dx) Social History Tobacco Use Types [...] on file 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 Visit Date: 06/17/2024 Chief Complaint Bilateral shoulder pain HPI: Ani Ortiz is a 74 y.o. female. The patient reports her right shoulder is doing great. She has had some recurrence of her left shoulder pain. She would like an injection in her left shoulder. Physical Exam: The patient???s left shoulder is warm and well perfused. The skin is intact across the shoulder with no erythema. Diagnoses and all orders for this visit: Rotator cuff tear arthropathy, left (Primary) - Large Joint (Hip, Knee, Shoulder) Injection: L glenohumeral Assessment: Left shoulder rotator cuff tear arthropathy 2. Mild right shoulder osteoarthritis 3. Hx of left shoulder arthroscopic debridement with high grade chondral wear and likely infraspinatus tendon tear Plan: I discussed treatment with the patient and have recommended to proceed with a left shoulder cortisone injection. They wish to proceed. Large Joint (Hip, Knee, Shoulder) Injection: L glenohumeral Performed by: Lawson Hassan MD Authorized by: Lawson Hassan MD Large Joint Injection/Aspiration: Consent Given by: Patient Written consent obtained: Yes Supporting Documentation: Indications: Pain Procedure Details: Location: Shoulder Site: L glenohumeral Prep: patient was prepped using a clean technique (The skin was anesthetized with ethyl chloride spray prior to the injection.) Needle Size: 25 G Medications: 2 mL lidocaine 10 mg/mL (1 %); 40 mg triamcinolone 40 mg/mL Patient tolerance: Patient tolerated the procedure well with no immediate complications Lawson Hassan MD documented in this encounter Plan of Treatment Not on file documented as of this encounter Procedures Procedure Name Priority Date/Time Associated Diagnosis Comments CT ARTHROCENTESIS ASPIR&/INJ MAJOR JT/BURSA W/O US Routine 06/17/2024 10:30 AM CDT Rotator cuff tear arthropathy, left documented in this encounter Results * CT ARTHROCENTESIS ASPIR&/INJ MAJOR JT/BURSA W/O US (06/17/2024 10:30 AM CDT) Narrative Lawson Hassan MD - 06/17/2024 10:30 AM CDT Lawson Hassan MD ? 06/17/2024 11:53 AM Large Joint (Hip, Knee, Shoulder) Injection: L glenohumeral Performed by: Lawson Hassan MD Authorized by: Lawson Hassan MD ?? Large Joint Injection/Aspiration: ??Consent Given by: ??Patient ??Written consent obtained: Yes ?? Supporting Documentation: ??Indications: ??Pain Procedure Details: ??Location: ??Shoulder ??Site: ??L glenohumeral ??Prep: patient was prepped using a clean technique (The skin was anesthetized with ethyl chloride spray prior to the injection.) ?Needle Size: ??25 G ??Medications: ??2 mL lidocaine 10 mg/mL (1 %); 40 mg triamcinolone 40 mg/mL ??Patient tolerance: ??Patient tolerated the procedure well with no immediate complications us Lawson Hassan MD IN CLINIC/BEDSIDE ORDERABL ES Final Result documented in this encounter Visit Diagnoses Diagnosis Rotator cuff tear arthropathy, left- Primary documented in this encounter Administered Medications Inactive Administered Medications - up to 3 most recent administrations Medication Order MAR Action Action Date Dose Rate Site lidocaine (XYLOCAINE) 10 mg/mL (1 %) injection 2 mL 2 mL, One-Time Injection, Starting on Sun06/17/24 at 1030, For 1 dose, Indications: Administration of Local AnesthesiaIndications:Adminis tration of Local Anesthesia Given 06/17/2024 10:30 AM CDT 2 mL Left Shoulder triamcinolone (KENALOG) 40 mg/mL injection 40 mg 40 mg, intra-articular, One-Time Injection, Starting on Sun06/17/24 at 1030, For 1 doseIndications:Rotator cuff tear arthropathy, left Given 06/17/2024 10:30 AM CDT 40 mg Left Shoulder documented in this encounter Discontinued Medications Medication Sig Discontinue Reason Start Date End Da te cranberry 400 mg capsule Take by mouth 024 documented as of this encounter Historical Medications * This list may reflect changes made after this encounter. omeprazole (PriLOSEC) 20 mg capsule TAKE 1 CAPSULE BY MOUTH EVERY DAY DIRECTED 05/28/2024 added in this encounter Care Teams Office Workforce Planner Relationship Specialty Start Date End Date Gabi Victoria PA [address] [facility] [address] [place] [address] PCP - General Internal Medicine 02/19/19 documented as of this encounter
--- OUTSIDE RECORDS SUMMARY | 2024-11-08 13:58 | XMS_ITS | Clinical Summary ---
Author Organization [facility] [facility] Address [address] [place] [address] Care Team Providers Care Preschool Assistant Name Role Phone Gabi Victoria Primary Care Provider [phone]- [phone] Allergies Active Allergy Reactions Criticality Noted Date Comments Cephalexin Rash Medium 02/19/2019 Cephalosporins Rash Medium 11/24/2020 Erythromycin Vomiting Low 02/19/2019 Penicillin V Potassium Rash Medium 02/19/2019 Shellfish Unknown 02/19/2019 Medications vit D3-vit W-rnxelvmat-gyoo [id number] bzhz-auh-jd-mg tablet Take 50 mcg by mouth Active [...] BY MOUTH EVERY MORNING 90 tablet 1 07/19/20 24 Active omeprazole (PriLOSEC) 20 mg capsule [...] 04/02/2023 Assessment & Plan (09/25/2023 12:59 PM VOCATIONAL TECHNICAL EDUCATION DIRECTOR): Check labs Assessment & Plan (04/02/2023 2:21 [...] 11/27/2020 Assessment & Plan (01/12/2021 9:51 PM VOCATIONAL TECHNICAL EDUCATION DIRECTOR): Per Cardio note may monitor Former smoker [...] for low-dose CT. Will place order for [facility] Assessment & Plan (07/18/2021 9:50 PM CDT): Continue to monitor annual LDCT. Next one due 12/2021 Assessment & Plan (01/12/2021 9:52 PM VOCATIONAL TECHNICAL EDUCATION DIRECTOR): Due for repeat LDCT after 01/09/2021 Coronary artery calcification seen on CT scan Overview (01/12/2021): LDCT done 12/2019 showed moderate to severe amount of coronary calcifications. Referred to Cardio Dr. Hwang 11/2020 Crestor increased to 40mg to get LDL below 70 [id number] started Stress ECHO appears normal. Assessment & Plan (09/25/2023 12:59 PM VOCATIONAL TECHNICAL EDUCATION DIRECTOR): LDCT done 12/2019 showed moderate to severe amount of coronary calcifications. Referred to Cardio Dr. Hwang 11/2020 Crestor increased to 40mg to get LDL below 70 [id number] started Stress ECHO appears normal. Assessment & Plan (08/26/2023 5:36 PM CDT): Referred to Cardio Dr. Hwang 11/2020 Crestor increased to 40mg to get LDL below 70 [id number] started Stress ECHO appears normal. Assessment & Plan (07/18/2021 9:47 PM CDT): Continue ASA and Crestor 40mg. Still follows with Dr. Hwang at least annually Assessment & Plan (01/12/2021 9:51 PM VOCATIONAL TECHNICAL EDUCATION DIRECTOR): Referred to Cardio Dr. Hwang 11/2020 Crestor increased to 40mg to get LDL below 70 [id number] started Stress ECHO appears normal. Continue per [...] Klonopin Assessment & Plan (09/25/2023 12:58 PM VOCATIONAL TECHNICAL EDUCATION DIRECTOR): Patient states symptoms are much more stable [...] p.r.n. Assessment & Plan (10/07/2021 9:52 PM VOCATIONAL TECHNICAL EDUCATION DIRECTOR): Continue Prozac 60 mg. She is on [...] reassess. Assessment & Plan (01/12/2021 9:53 PM VOCATIONAL TECHNICAL EDUCATION DIRECTOR): See anxiety Assessment & Plan (08/22/2020 10:47 PM CDT): Continue Prozac, wellbutrin, buspar and klonipin sparinginly Assessment & Plan (01/05/2020 11:18 AM VOCATIONAL TECHNICAL EDUCATION DIRECTOR): This is a significant, separately identifiable problem [...] dxa Assessment & Plan (01/12/2021 9:52 PM VOCATIONAL TECHNICAL EDUCATION DIRECTOR): DXA due 09/2021 Calcium and vit d Assessment & Plan (01/05/2020 11:14 AM VOCATIONAL TECHNICAL EDUCATION DIRECTOR): Encouraged Calcium, Vit D and Weight bearing exercise. Stop smoking. Recheck DXA in 09/2021 Assessment & Plan (10/20/2019 1:42 PM VOCATIONAL TECHNICAL EDUCATION DIRECTOR): DXA 09/2019 at [facility] Reviewed results with patient. Encouraged calcium, vit [...] needed. Continue Crestor 40 Assessment & Plan (03/08/2024 11:42 PM CDT): Encouraged patient to follow low fat/low chol diet like the Mediterranean diet. Increase good fats in the diet. Increase exercise. Monitor labs as needed. Continue Crestor 40 Assessment & Plan (09/25/2023 12:59 PM VOCATIONAL TECHNICAL EDUCATION DIRECTOR): Encouraged patient to follow low fat/low chol [...] Crestor Assessment & Plan (10/07/2021 9:52 PM VOCATIONAL TECHNICAL EDUCATION DIRECTOR): Encouraged patient to follow fat/low chol diet like the Mediterranean diet. Increase good fats in the diet. Increase exercise. Monitor labs as needed. Continue statin Assessment & Plan (07/18/2021 9:47 PM CDT): Encouraged patient to follow fat/low chol diet like the Mediterranean diet. Increase good fats in the diet. Increase exercise. Monitor labs as needed. Continue crestor Assessment & Plan (01/12/2021 9:52 PM VOCATIONAL TECHNICAL EDUCATION DIRECTOR): Encouraged patient to follow fat/low chol diet like the Mediterranean diet. Increase good fats in the diet. Increase exercise. Monitor labs as needed. Continue crestor Assessment & Plan (08/22/2020 10:45 PM CDT): Encouraged patient to follow fat/low chol diet like the Mediterranean diet. Increase good fats in the diet. Increase exercise. Monitor labs as needed. Crestor daily Assessment & Plan (01/05/2020 11:14 AM VOCATIONAL TECHNICAL EDUCATION DIRECTOR): Encouraged patient to continue low fat/low chol diet. Continue exercise. Increase good fats in the diet. Monitor labs as needed. Continue crestor Assessment & Plan (10/20/2019 1:42 PM VOCATIONAL TECHNICAL EDUCATION DIRECTOR): Encouraged patient to continue low fat/low chol diet. Continue exercise. Increase good fats in the diet. Monitor labs as needed. Continue Crestor Anxiety 02/19/2019 Assessment & Plan (09/25/2023 12:58 PM VOCATIONAL TECHNICAL EDUCATION DIRECTOR): Patient states symptoms are much more stable [...] p.r.n. Assessment & Plan (01/12/2021 9:52 PM VOCATIONAL TECHNICAL EDUCATION DIRECTOR): Continue Prozac, wellbutrin, buspar and klonipin sparingly Assessment & Plan (08/22/2020 10:45 PM CDT): See depression Assessment & Plan (01/05/2020 11:16 AM VOCATIONAL TECHNICAL EDUCATION DIRECTOR): See depression Anxiety/fear better with the buspar Assessment & Plan (10/20/2019 1:42 PM VOCATIONAL TECHNICAL EDUCATION DIRECTOR): Continue Cymbalta, Wellbutrin and Buspar. Has Klonipin, [...] 05/2019--->05/2024 Assessment & Plan (01/12/2021 9:53 PM VOCATIONAL TECHNICAL EDUCATION DIRECTOR): Due to repeat colonoscopy 2023 Assessment & Plan (02/23/2019 9:32 PM CDT): Followup colonoscopy ordered. Referral sent to Dr. Quintero. Tra valerio 02/19/2019 Assessment & Plan (01/05/2020 11:14 AM VOCATIONAL TECHNICAL EDUCATION DIRECTOR): Valtrex prn Other insomnia 02/19/2019 Assessment & Plan (08/26/2023 5:36 PM CDT): Patient wants to continue with the Ambien. She states that is the only thing that helps. She is aware of the black box warnings related to her age Assessment & Plan (07/19/2021 9:17 PM CDT): Prefers ambien Assessment & Plan (01/12/2021 9:53 PM VOCATIONAL TECHNICAL EDUCATION DIRECTOR): Continue Ambien. Patient is aware of the warning with her age and this medication. She desires to continue it. Assessment & Plan (01/05/2020 11:15 AM VOCATIONAL TECHNICAL EDUCATION DIRECTOR): Continue ambien prn Assessment & Plan (10/20/2019 1:43 PM VOCATIONAL TECHNICAL EDUCATION DIRECTOR): Continue Ambien Stage 3a chronic kidney disease 02/19/2019 Assessment & Plan (09/07/2024 10:47 PM CDT): Avoid nephrotoxic drugs including NSAIDs. Monitor labs. Assessment & Plan (03/08/2024 11:42 PM CDT): Avoid nephrotoxic drugs including NSAIDs. Monitor labs. Assessment & Plan (09/25/2023 12:59 PM VOCATIONAL TECHNICAL EDUCATION DIRECTOR): Avoid nephrotoxic drugs including NSAIDs. Monitor labs. [...] labs. Assessment & Plan (01/12/2021 9:51 PM VOCATIONAL TECHNICAL EDUCATION DIRECTOR): Avoid nephrotoxic drugs including NSAIDs. Monitor labs. Assessment & Plan (01/05/2020 11:13 AM VOCATIONAL TECHNICAL EDUCATION DIRECTOR): Avoid nephrotoxic drugs including NSAIDs. Monitor labs. Assessment & Plan (10/20/2019 1:41 PM VOCATIONAL TECHNICAL EDUCATION DIRECTOR): Avoid nephrotoxic drugs including NSAIDs. Monitor labs. [...] 24 Assessment & Plan (09/25/2023 11:09 AM VOCATIONAL TECHNICAL EDUCATION DIRECTOR): Weight/BMI is in healthy range. Continue healthy [...] re-evaluate Assessment & Plan (09/25/2023 12:59 PM VOCATIONAL TECHNICAL EDUCATION DIRECTOR): Probably multifactorial. Check labs and followup to [...] 02/24/2022 Assessment & Plan (10/07/2021 9:58 PM VOCATIONAL TECHNICAL EDUCATION DIRECTOR): Probably multifactorial. Check labs and followup to re-evaluate Flu vaccine need 10/07/2021 02/24/2022 Assessment & Plan (10/07/2021 9:58 PM VOCATIONAL TECHNICAL EDUCATION DIRECTOR): Flu vaccine updated in the office today BMI 26.0-26.9,adult 07/19/2021 02/11/20 22 Assessment & Plan (07/19/2021 9:12 AM CDT): [...] 21 Assessment & Plan (01/13/2021 9:21 AM VOCATIONAL TECHNICAL EDUCATION DIRECTOR): Weight/BMI is in healthy range. Continue healthy lifestyle to maintain. Medicare annual wellness visit, subsequent 01/12/2021 08/23/2022 Assessment & Plan (02/24/2022 10:40 PM CDT): Encouraged healthy lifestyle, good nutrition and exercise. Encouraged Calcium and Vitamin D and weight bearing exercise for bone health. Reviewed immunizations. Reviewed age appropirate screenings. Medicare Wellness Documentation is completed within the chart Assessment & Plan (01/12/2021 9:53 PM VOCATIONAL TECHNICAL EDUCATION DIRECTOR): Encouraged healthy lifestyle, good nutrition and exercise. Encouraged Calcium and Vitamin D and weight bearing exercise for bone health. Reviewed immunizations. Reviewed age appropirate screenings. Medicare Wellness Documentation is completed within the chart Positive depression screening 01/05/2020 05/31/2020 Assessment & Plan (01/05/2020 11:14 AM VOCATIONAL TECHNICAL EDUCATION DIRECTOR): Known depression. See depression for treatment plan Medicare annual wellness visit, subsequent 01/05/2020 05/31/2020 Assessment & Plan (01/05/2020 11:15 AM VOCATIONAL TECHNICAL EDUCATION DIRECTOR): Encouraged healthy lifestyle, good nutrition and exercise. Encouraged Calcium and Vitamin D and weight bearing exercise for bone health. Reviewed immunizations Reviewed age appropirate screenings. Documentation is on the chart Cigarette smoker 01/05/2020 11/24/2020 Assessment & Plan (08/22/2020 10:45 PM CDT): Encouraged smoking cessation. Discussed 3 minutes. Reviewed options for assistance with cessation. Reviewed intermediate accountant sequela associated with smoking. Pt declines assistance at this time but may contact the office at anytime for further help as they desire. Assessment & Plan (01/05/2020 8:23 AM VOCATIONAL TECHNICAL EDUCATION DIRECTOR): Encouraged smoking cessation. Discussed 3 minutes. Reviewed options for assistance with cessation. Reviewed snf sequela associated with smoking. Pt declines assistance [...] 024 Assessment & Plan (01/05/2020 11:13 AM VOCATIONAL TECHNICAL EDUCATION DIRECTOR): This is a significant, separately identifiable problem that was evaluated and managed on the same day as the wellness exam Refer to Ortho hand for further evaluation. No NSAIDs due to renal function. BMI 25.0-25.9,adult 10/20/2019 01/14/20 21 Assessment & Plan (08/22/2020 10:45 PM CDT): Weight/BMI is in healthy range. Continue healthy lifestyle to maintain. Assessment & Plan (01/05/2020 7:41 AM VOCATIONAL TECHNICAL EDUCATION DIRECTOR): Weight/BMI is in healthy range. Continue healthy lifestyle to maintain. Assessment & Plan (10/20/2019 8:35 AM VOCATIONAL TECHNICAL EDUCATION DIRECTOR): Weight/BMI is in healthy range. Continue healthy [...] 01/12/2021 Assessment & Plan (01/05/2020 11:15 AM VOCATIONAL TECHNICAL EDUCATION DIRECTOR): Probably multifactorial. Check labs and followup to re-evaluate Assessment & Plan (10/20/2019 1:43 PM VOCATIONAL TECHNICAL EDUCATION DIRECTOR): Check labs Elevated serum creatinine 02/19/2019 Encounters Date Type Department Care Team Description 10/29/2024 Telephone [facility] Medicine [address] [place] [address] [address] [place] [address] Gabi Victoria PA Medical Question/Miscellaneous 09/25/2024 10:45 AM VOCATIONAL TECHNICAL EDUCATION DIRECTOR Office Visit [facility] Hand Surgery [address] [place] [address] [address] [place] [phone] Vianey Warren PA Localized osteoarthritis of hand, unspecified laterality (Primary Dx) 09/18/2024 11:15 AM VOCATIONAL TECHNICAL EDUCATION DIRECTOR Office Visit [facility] Orthopedics and Sports Medicine [address] [place] [address] [address] [place] [id number] Lawson Hassan MD Rotator cuff tear arthropathy, left (Primary Dx); Bilateral shoulder pain, unspecified chronicity 09/02/2024 9:00 AM CDT Office Visit [address] [place] [phone] Gabi Victoria PA Medicare annual wellness visit, subsequent (Primary Dx); Snores; Former smoker; Moderate episode of recurrent major depressive disorder (HCC); Stage 3a chronic kidney disease (HCC); Need for influenza vaccination; Mixed hyperlipidemia; BMI 26.0-26.9,adult from Last 3 Months Immunizations Name Administration Dates Next Due COVID-19 mRNA (Hyperpot) 0.3 m L (30 mcg) vaccine (12 [...] (Abrysvo) 08/24/2023 Tdap 09/23/2020 ZOSTER Recombinant 11/22/2020,09/23/2020 Surgical History Surgery Date Site/Laterality Comments COLONOSCOPY 11/12/2016 - 11/11/2017 CATARACT EXTRACTION 11/12/2014 - 11/11/2015 SHOULDER SURGERY 11/12/2014 - 11/11/2015 Left TONSILLECTOMY 11/12/1970 - 11/11/1971 CHOLECYSTECTOMY 11/12/2014 - 11/11/2015 HYSTERECTOMY 11/12/1981 - 11/11/1982 RHINOPLASTY COSMETIC SURGERY 11/12/1977 - 11/11/1978 BLADDER SURGERY 11/12/1987 - 11/11/1988 Medical History Medical History Date Comments Hyperlipidemia Allergic rhinitis Depression Suicide attempt 1969 a COPD (chronic obstructive pulmonary disease) (HC C) Kidney stones Coronary artery calcification Anxiety Emphysema of lung (HCC) Mixed conductive and sensorineural hearing loss Family History Medical History Relation Name Comments Cancer Father Pankaj furber Cancer, gioblastoma Father Pankaj furber Hyperlipidemia Mother Duke Relation Name Status Comments Father Pankaj cho (Age 56) Mother Duke Alive Social History Tobacco Use Types Packs/Day Years [...] on file Legal Sex Female 12:08 AM VOCATIONAL TECHNICAL EDUCATION DIRECTOR Gender Identity Not on file Sexual Orientation Not on file Occupation Industry Job Start Date Job End Date Retired Not on file Not on file Not on file Obstetrics History Last Filed Vital Signs Vital Sign Reading Time Taken Comments Blood Pressure 120/72 09/02/2024 9:09 AM CDT Pulse 75 09/02/2024 9:09 AM CDT Temperature 36.6 ??C (97.9 ??F) 09/02/2024 9:09 AM C DT Respiratory Rate - - Oxygen Saturation 98% 09/02/2024 9:09 AM CDT Inhaled Oxygen Concentration - - Weight 64.9 kg (143 lb) 09/18/2024 11:43 AM VOCATIONAL TECHNICAL EDUCATION DIRECTOR Height 157.5 cm (5' 2 ) 09/18/2024 11:43 AM VOCATIONAL TECHNICAL EDUCATION DIRECTOR Body Mass Index 26.16 09/18/2024 11:43 AM VOCATIONAL TECHNICAL EDUCATION DIRECTOR Plan of Treatment Health Maintenance Due Date Last Done Comments Hepatitis B Screening 1968 Colon Cancer Screening-Colonoscopy 06/02/2024 06/02/2019 Covid-19 Vaccine (2023-12 5 season) 2024 08/19/2023, 10/15/2022, 09/06/2021, Additional history exists Breast Cancer Screening-Mammogram 07/29/2025 07/29/2024, 06/28/2023, 03/13/2022, Additional history exists Depression Screening 09/02/2025 09/02/2024, 03/03/2024, 09/25/2023, Additional history exists Fall Risk Assessment 09/02/2025 09/02/2024, 03/03/2024, 08/14/2023, Additional history exists Well Visit 65+ 09/02/2025 09/02/2024, 02/11, 08/14/2023, Additional history exists Lung Cancer Screening 11/03/2025 11/03/2024 , 04/20/2023, 03/13/2022, Additional history exists Osteoporosis Screening-Bone Density Scan 07/30/2026 07/30/2024, 03/13/2022, 09/30/2019 DTaP/Tdap/Td Vaccine (2 - Td or Tdap) 09/23/2030 09/23/2020 Colon Cancer Screening-CT Colonography Discontinued 06/02/2019 Colon Cancer Screening-DNA Stool Discontinued 06/02/20 Colon Cancer Screening-FIT Discontinued 06/02/2019 Colon Cancer Screening-Sigmoidoscopy Discontinued 06/02/2019 Pneumococcal vaccine 65+ Completed 020, 08/25/2019, 08/19/2018 Zoster Vaccine Completed 11/22/2020, 09/23/2020 Hepatitis C Screening Completed 09/25/2023 Influenza Vaccine Completed 09/02/2024, , 08/23/2022, Additional history exists Procedures Procedure Name Priority Date/Time Associated Diagnosis Comments CT LUNG CANCER SCREENING Schedule Routine, Read Routine (OP Routine) 11/03/2024 2:19 PM VOCATIONAL TECHNICAL EDUCATION DIRECTOR Former smoker [place] ARTHROCENTESIS ASPIR&/INJ SMALL JT/BURSA W/O US Routine 09/25/2024 10:45 AM VOCATIONAL TECHNICAL EDUCATION DIRECTOR Localized osteoarthritis of hand, unspecified laterality [place] ARTHROCENTESIS ASPIR&/INJ SMALL JT/BURSA W/O US Routine 09/25/2024 10:45 AM VOCATIONAL TECHNICAL EDUCATION DIRECTOR Localized osteoarthritis of hand, unspecified laterality [place] ARTHROCENTESIS ASPIR&/INJ SMALL JT/BURSA W/O US Routine 09/25/2024 10:45 AM VOCATIONAL TECHNICAL EDUCATION DIRECTOR Localized osteoarthritis of hand, unspecified laterality [place] ARTHROCENTESIS ASPIR&/INJ SMALL JT/BURSA W/O US Routine 09/25/2024 10:45 AM VOCATIONAL TECHNICAL EDUCATION DIRECTOR Localized osteoarthritis of hand, unspecified laterality [place] ARTHROCENTESIS ASPIR&/INJ SMALL JT/BURSA W/O US Routine 09/25/2024 10:45 AM VOCATIONAL TECHNICAL EDUCATION DIRECTOR Localized osteoarthritis of hand, unspecified laterality [place] ARTHROCENTESIS ASPIR&/INJ MAJOR JT/BURSA W/O US Routine 09/18/2024 11:15 AM VOCATIONAL TECHNICAL EDUCATION DIRECTOR Rotator cuff tear arthropathy, left Bilateral shoulder pain, unspecified chronicity DEXA AXIAL SKELETON BONE DENSITY 1 OR MORE SITES Schedule Routine, Read Routine (OP Routine) 07/30/2024 8:12 AM CDT Menopause SCREENING MAMMOGRAM BILATERAL W GERARDO Schedule Routine, Read Routine (OP Routine) 07/29/2024 3:15 PM CDT Breast cancer screening by mammogram HM COLONOSCOPY Routine 06/02/2019 from Last 3 Months or Most Recently Relevant to Health Maintenance Results * CT Lung Cancer Screening (11/03/2024 2:19 PM VOCATIONAL TECHNICAL EDUCATION DIRECTOR) Anatomical Region Laterality Modality Chest N/A Computed Tomogra phy us Gabi DURÁN IMG CT PROCEDURES Final Re sult * [place] ARTHROCENTESIS ASPIR&/INJ SMALL JT/BURSA W/O US (09/25/2024 10:45 AM VOCATIONAL TECHNICAL EDUCATION DIRECTOR) Narrative Vianey Warren PA - 09/25/2024 10:45 AM VOCATIONAL TECHNICAL EDUCATION DIRECTOR Vianey Warren PA ? 09/29/2024 10:37 AM [...] IN CLINIC/BEDSIDE ORDERABLES F inal Result * [place] ARTHROCENTESIS ASPIR&/INJ SMALL JT/BURSA W/O US (09/25/2024 10:45 AM VOCATIONAL TECHNICAL EDUCATION DIRECTOR) Narrative Vianey Warren PA - 09/25/2024 10:45 AM VOCATIONAL TECHNICAL EDUCATION DIRECTOR Vianey Warren PA ? 09/29/2024 10:37 AM [...] IN CLINIC/BEDSIDE ORDERABLES F inal Result * [place] ARTHROCENTESIS ASPIR&/INJ SMALL JT/BURSA W/O US (09/25/2024 10:45 AM VOCATIONAL TECHNICAL EDUCATION DIRECTOR) Narrative Vianey Warren PA - 09/25/2024 10:45 AM VOCATIONAL TECHNICAL EDUCATION DIRECTOR Vianey aWrren PA ? 09/29/2024 10:37 AM Small Joint [...] IN CLINIC/BEDSIDE ORDERABLES F inal Result * [place] ARTHROCENTESIS ASPIR&/INJ SMALL JT/BURSA W/O US (09/25/2024 10:45 AM VOCATIONAL TECHNICAL EDUCATION DIRECTOR) Narrative Vianey Warren PA - 09/25/2024 10:45 AM VOCATIONAL TECHNICAL EDUCATION DIRECTOR Vianey Warren PA ? 09/29/2024 10:37 AM [...] IN CLINIC/BEDSIDE ORDERABLES F inal Result * [place] ARTHROCENTESIS ASPIR&/INJ SMALL JT/BURSA W/O US (09/25/2024 10:45 AM VOCATIONAL TECHNICAL EDUCATION DIRECTOR) Narrative Vianey Warren PA - 09/25/2024 10:45 AM VOCATIONAL TECHNICAL EDUCATION DIRECTOR Vianey Warren PA ? 09/29/2024 10:37 AM [...] IN CLINIC/BEDSIDE ORDERABLES F inal Result * [place] ARTHROCENTESIS ASPIR&/INJ MAJOR JT/BURSA W/O US (09/18/2024 11:15 AM VOCATIONAL TECHNICAL EDUCATION DIRECTOR) Narrative Lawson Hassan MD - 09/18/2024 11:15 AM VOCATIONAL TECHNICAL EDUCATION DIRECTOR Lawson Hassan MD ? 09/18/2024 12:36 PM [...] Body N/A Radiographic Juanis ging Gabi DURÁN IMG DXA PROCEDURES Final R esult * Screening Mammogram Bilateral W Gerardo (07/29/2024 3:15 PM CDT) Anatomical Region Laterality Modality Breast Bilateral Mammography Gabi DURÁN IMG MAMMO PROCEDURES Final Result * HM COLONOSCOPY (06/02/2019) HM Colonoscopy Abnormal Osito Kimble MD HEALTH MAINTENANCE Final Result from Last 3 Months or Most Recently Relevant to Health Maintenance Insurance MEDICARE SOLUTIONS MEDICARE SOLUTIONS Care Teams Preschool Assistant Relationship Specialty Start Date End Date Gabi Victoria PA [address] [id number] PCP - General Internal Medicine 02/19/19
--- OUTSIDE RECORDS SUMMARY | 2024-11-08 13:58 | XMS_ITS | Encounter Summary ---
Author Organization [facility] Address [address] [place] [address] Care Team Providers Care Ceramic Maker Demonstrator Name Role Phone Gabi Victoria Primary Care Provider [phone]- [phone] Reason for Referral * Diagnostic Imaging (Routine) - Closed Specialty Diagnoses / Procedures Referred By Contac t Referred To Contact Diagnoses Bilateral hand pain Procedures XR Hand Right 3 or More Views Vianey Warren PA [address] [place] [address] Phone: tel: fax: [address] [phone] Referral ID Status Reason Start Date Expiration Date Visits Re quested Visits Authorized [id number] Closed 01/24/2024 02/22/2025 1 1 * Diagnostic Imaging (Routine) - Closed Specialty Diagnoses / Procedures Referred By Contac t Referred To Contact Diagnoses Bilateral hand pain Procedures XR Hand Left 3 or More Views Vianey Warren PA [address] [place] [address] Phone: tel: fax: [address] [phone] Referral ID Status Reason Start Date Expiration Date Visits Re quested Visits Authorized [id number] Closed 01/24/2024 02/22/2025 1 1 Reason for Visit * Diagnostic Imaging (Routine) - Closed Specialty Diagnoses / Procedures Referred By Contac t Referred To Contact Diagnoses Bilateral hand pain Procedures XR Hand Left 3 or More Views Vianey Warren PA [address] [place] [address] Phone: tel: fax: [address] [phone] Referral ID Status Reason Start Date Expiration Date Visits Re quested Visits Authorized [id number] Closed 01/24/2024 02/22/2025 1 1 Encounter Details Date Type Department Care Team (Latest Contact Info) Description 01/24/2024 9:51 AM CDT - 01/24/2024 11:59 PM CDT Hospital Encounter [facility] Diag Imaging [address] [place] [id number] Bilateral hand pain Discharge Disposition: Discharge to home or self [...] on file 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 Gender Identity Not on file Sexual Orientation [...] UNTIL STONE HAS PASSED 08/22/2023 vit D3-vit U-xzexaeedv-umom [id number] fmvz-gad-ko-mg tablet Take 50 mcg by mouth albuterol HFA (ProAir HFA) 90 mcg/actuation inhaler Inhale 2 puffs every 4 (four) hours as needed for wheezing or shortness of breath 8.5 g 02/08/2022 4 benzonatate (TESSALON) 100 mg capsuleIndications:C ough Take 1 capsule (100 mg total) by mouth 3 (three) times a day as needed for cough 30 capsule 10/16/2023 4 buPROPion XL (WELLBUTRIN XL) 300 mg 24 hr tabletIndications:An xiety TAKE 1 TABLET(300 MG) BY MOUTH EVERY MORNING 90 tablet 1 12/03/2023 4 clonazePAM (KlonoPIN) 1 mg tabletIndications:An xiety Take 1 tablet (1 mg total) by mouth every 8 (eight) hours as needed for anxiety 30 tablet 01/22/2024 4 cranberry 400 mg capsule Take by mouth 4 rosuvastatin (CRESTOR) 40 mg tabletIndications:Co ronary artery calcification seen on CT scan,Mixed hyperlipidemia Take 1 tablet (40 mg total) by mouth daily 90 tablet 3 09/25/2023 4 valACYclovir (VALTREX) 1 gram tablet Take TWO tabs po at onset of cold sore. Take TWO tabs po 12 hours later. 20 tablet 02/26/2023 4 vortioxetine (TRINTELLIX) 20 mg tabletIndications:ma cyrus depressive disorder Take 1 tablet (20 mg total) by mouth daily 90 tablet 1 01/07/2024 4 zolpidem (AMBIEN) 5 mg tabletIndications:Sl eep-Onset Insomnia Take 1 tablet (5 mg total) by mouth nightly as needed for sleep 90 tablet 11/14/2023 4 documented as of this encounter Discharge Disposition Disposition Code Departure Means Destination Discharge to home or self care documented in this encounter Plan of Treatment Not on file documented as of this encounter Procedures Procedure Name Priority Date/Time Associated Diagnosis Comments XR HAND RIGHT 3 OR MORE VIEWS Schedule Routine, Read Routine (OP Routine) 01/24/2024 9:58 AM CDT Bilateral hand pain XR HAND LEFT 3 OR MORE VIEWS Schedule Routine, Read Routine (OP Routine) 01/24/2024 9:58 AM CDT Bilateral hand pain documented in this encounter Results * XR Hand Right 3 or More [...] D: ??01/24/2024 8:57 PM T: Report ID: [id number] Reading Location: ??[id number] Procedure Note Miguel Mcfarland MD - 01/24/2024 [...] by Miguel Mcfarland M.D. T: Report ID: [id number] Reading Location: [id number] Vianey [facility] IMG XR PROCEDURES Final Result * XR Hand Left 3 or [...] D: ??01/24/2024 8:57 PM T: Report ID: [id number] Reading Location: ??[id number] Procedure Note Miguel Mcfarland MD - 01/24/2024 [...] by Miguel Mcfarland M.D. T: Report ID: [id number] Reading Location: [id number] Vianey [facility] IMG XR PROCEDURES Final Result documented in this encounter Visit Diagnoses Diagnosis Bilateral hand pain documented in this encounter Care Teams Ceramic Maker Demonstrator Relationship Specialty Start Date End Date Gabi Victoria PA [address] [facility] [address] [place] [address] PCP - General Internal Medicine 02/19/19 documented as of this encounter
--- OUTSIDE RECORDS SUMMARY | 2024-11-08 13:58 | XMS_ITS | Encounter Summary ---
Author Organization [facility] Healthcare Address [address] [place] [address] Care Team Providers Care Rouge Presser Name Role Phone Gabi Victoria Primary Care Provider [phone]- [phone] Reason for Referral * Consultation (Routine) - Closed Specialty Diagnoses / Procedures Referred By Hiram t Referred To Contact Physical Therapy Diagnoses Neck pain Gabi Victoria PA [address] [place] [address] Phone: tel: fax: Unknown Place of Service fax: Referral ID Status Reason Start Date Expiration Date V isits Requested Visits Authorized [id number] Closed Specialty Services Required 03/03/2024 04/02/2025 24 24 Question Answer PTRFR PT Evaluate and Treat Therapy options discussed with patient? Yes Location provided for therapy services is: Patient requested/Patient preferred Please select the performing region: External Order [[id number]] # of visits: 24 Comments PT Eval and Treat 2-3 times/week for 4-6 weeks Dx: neck pain and tension LANDRY [facility] [place] Reason for Visit * Reason Comments Annual Exam Encounter Details Date Type Department Care Team ([facility] st Contact Info) Description 03/03/2024 10:30 AM CDT Office Visit [facility] Family Medicine [address] [place] [address] Gabi Victoria PA [address] [place] [address] Annual physical exam (Primary Dx); Mixed hyperlipidemia; Moderate episode of recurrent major depressive disorder (HCC); Stage 3a chronic kidney disease (HCC); Fatigue, unspecified type; Neck pain; BMI 24.0-24.9, adult Social History Tobacco Use Types Packs/Day Years [...] on file Legal Sex Female 12:08 AM [employer] Gender Identity Not on file Sexual Orientation Not on file Occupation Industry Job Start Date Job End Date Retired Not on file Not on file Not on file documented as of this encounter Last Filed Vital Signs Vital Sign Reading Time Taken Comments Blood Pressure 120/78 03/03/2024 10:22 AM CDT Pulse 81 03/03/2024 10:22 AM CDT Temperature 36.5 ??C (97.7 ??F) 03/03/2024 10:22 AM C DT Respiratory Rate - - Oxygen Saturation 96% 03/03/2024 10:22 AM CDT Inhaled Oxygen Concentration - - Weight 61.5 kg (135 lb 8 oz) 03/03/2024 10:22 AM CDT Height 157.5 cm (5' 2 ) 03/03/2024 10:22 AM CDT Body Mass Index 24.78 03/03/2024 10:22 AM CDT documented in this encounter Progress Notes * Gabi Victoria PA - 03/03/2024 10:30 AM CDT Images from the original note were not included. Subjective/Objective Patient ID: Ani Ortiz is a 73 y.o. female. Chief Complaint Annual Exam HPI Patient presents for [facility] exam and followup chronic concerns. Having re-occurring dreams about abadnodmement. Not currently doing counseling but willing to reconsider. Continue the Trintellix and the Wellbutrin XL 300 and Buspar prn Klonopin. Urology -- Dr. Fregoso Last one in november Kidney stones --- CT showed a 3mm stone -- Has flomax prn. LDCT ---Benign changes -- repeat 06/2024 Quit smoking 03/2022 Insomnia - Ambien Patient is aware of the warning related to this medication and her age but prefers to continue it despite the warnings. Moderate to severe amount of coronary calcifications noted on LDCT done 12/2019. Referred to Cardio and Dr. Hwang added: ASA 81 Crestor increased to 40mg daily Tension LANDRY and occasional allergy sxs. Is starting to notice she is waking up with a headache. Had a LANDRY every day for the last 2 weeks. Taking Tylenol as Can't take NSAIDs. Pneumonia vaccines - 13 and 23 are done Colonoscopy - 05/2019--->2023 DXA - 03/2022 STABLE -- Mamm - 06/2023 LDCT -06/2023 Shingrix x 2 done Tdap 2019 Review of Systems See [facility] Vitals: 03/03/24 1022 BP: 120/78 BP Location: Right arm Patient Position: Sitting Pulse: 81 Temp: 36.5 ??C (97.7 ??F) TempSrc: Oral SpO2: 96% Weight: 61.5 kg (135 lb 8 oz) Height: 157.5 cm (5' 2 ) Physical Exam Vitals and nursing note reviewed. Constitutional: Appearance: She is well-developed. HENT: Head: Normocephalic and atraumatic. Eyes: Comments: Pupils are equal Cardiovascular: Rate and Rhythm: Normal rate and regular rhythm. Heart sounds: No murmur heard. Pulmonary: Effort: Pulmonary effort is normal. Breath sounds: Normal breath sounds. Abdominal: Palpations: Abdomen is soft. Tenderness: There is no abdominal tenderness. Skin: General: Skin is warm and dry. Findings: No rash. Neurological: General: No focal deficit present. Mental Status: She is alert and oriented to person, place, and time. Assessment/Plan Diagnoses and all orders for this visit: Annual physical exam (Z00.00) (Primary) Assessment & Plan: Encouraged healthy lifestyle, good nutrition and exercise. Encouraged Calcium and Vitamin D and weight bearing exercise for bone health. Reviewed immunizations Reviewed age appropirate screenings. Mixed hyperlipidemia (E78.2) Assessment & Plan: Encouraged patient to follow low fat/low chol diet like the Mediterranean diet. Increase good fats in the diet. Increase exercise. Monitor labs as needed. Continue Crestor 40 Moderate episode of recurrent major depressive disorder (HCC) (F33.1) Assessment & Plan: Symptoms are stable with Trintellix Wellbutrin BuSpar p.r.n. Klonopin Stage 3a chronic kidney disease (HCC) (N18.31) Assessment & Plan: Avoid nephrotoxic drugs including NSAIDs. Monitor labs. Orders: - Albumin Creatinine Ratio, Urine; Future - Comprehensive metabolic panel; Future Fatigue, unspecified type (R53.83) Assessment & Plan: Probably multifactorial. Check labs and followup to re-evaluate Orders: - Vitamin B12; Future Neck pain (M54.2) Assessment & Plan: Patient with persistent neck pain and tension headaches. Recommend physical therapy. If symptoms persist encouraged follow-up to reassess Orders: - Ambulatory referral order to Physical Therapy -; Future BMI 24.0-24.9, adult (Z68.24) Assessment & Plan: Weight/BMI is in healthy range. Continue healthy lifestyle to maintain. *This note is dictated using [employer] voice recognition software, variances in spelling and vocabulary are possible and unintentional.* Gabi Victoria PA-C documented in this encounter Miscellaneous Notes * Assessment & Plan Note - Gabi Victoria PA - 03/08/2024 11:44 PM CDT Associated Problem(s): Annual physical exam (Resolved 09/07/2024) Encouraged healthy lifestyle, good nutrition and exercise. Encouraged Calcium and Vitamin D and weight bearing exercise for bone health. Reviewed immunizations Reviewed age appropirate screenings. * Assessment & Plan Note - Gabi Victoria PA - 03/08/2024 11:44 PM CDT Associated Problem(s): Neck pain Patient with persistent neck pain and tension headaches. Recommend physical therapy. If symptoms persist encouraged follow-up to reassess * Assessment & Plan Note - Gabi Victoria PA - 03/08/2024 11:43 PM CDT Associated Problem(s): Fatigue (Resolved 09/07/2024) Probably multifactorial. Check labs and followup to re-evaluate * Assessment & Plan Note - Gabi Victoria PA - 03/08/2024 11:43 PM CDT Associated Problem(s): BMI 24.0-24.9, adult (Resolved 09/02/2024) Weight/BMI is in healthy range. Continue healthy lifestyle to maintain. * Assessment & Plan Note - Gabi Victoria PA - 03/08/2024 11:42 PM CDT Associated Problem(s): Stage 3a chronic kidney disease (HCC) Avoid nephrotoxic drugs including NSAIDs. Monitor labs. * Assessment & Plan Note - Gabi Victoria PA - 03/08/2024 11:42 PM CDT Associated Problem(s): Mixed hyperlipidemia Encouraged patient to follow low fat/low chol diet like the Mediterranean diet. Increase good fats in the diet. Increase exercise. Monitor labs as needed. Continue Crestor 40 * Assessment & Plan Note - Gabi Victoria PA - 03/08/2024 11:42 PM CDT Associated Problem(s): Moderate episode of recurrent major depressive disorder (HCC) Symptoms are stable with Trintellix Wellbutrin BuSpar p.r.n. Klonopin documented in this encounter Plan of Treatment Scheduled Referrals Name Type Priority Associated Diagnoses Order Schedule Ambulatory referral order to Physical Therapy - Outpatient Referral Routine Neck pain Expected: 03/17/2024 (Approximate), Expires: 03/03/2025 documented as of this encounter Procedures Procedure Name Priority Date/Time Associated Diagnosis Comments ALBUMIN CREATININE RATIO, URINE Routine 03/25/2024 10:03 AM CDT Stage 3a chronic kidney disease (HCC) VITAMIN B12 Routine 03/25/2024 10:03 AM CDT Fatigue, unspecified type COMPREHENSIVE METABOLIC PANEL Routine 03/25/2024 10:03 AM CDT Stage 3a chronic kidney disease (HCC) documented in this encounter Results * (ABNORMAL) Comprehensive metabolic panel (03/25/2024 10:03 AM CDT) Glucose 127 65 - 139 mg/dL [facility] Comment: ? Non-fasting reference interval BUN 18 7 - 25 mg/dL [facility] Creatinine 1.24(H) 0.60 - 1.00 mg/dL [facility] eGFR 46(L) > OR = 60 mL/min/1.7 3m2 [facility] BUN/creat ratio 15 6 - 22 (calc) [facility] Sodium 142 135 - 146 mmol/L [facility] Potassium, pl 3.8 3.5 - 5.3 mmol/L [facility] Chloride 107 98 - 110 mmol/L [facility] CO2 27 20 - 32 mmol/L [facility] Calcium 9.2 8.6 - 10.4 mg/dL [facility] Protein, sr 5.9(L) 6.1 - 8.1 g/dL [facility] Albumin 4.0 3.6 - 5.1 g/dL [facility] GLOBULIN 1.9 1.9 - 3.7 g/dL (calc) [facility] Alb/glob ratio 2.1 1.0 - 2.5 (calc) [facility] Bilirubin, total 0.6 0.2 - 1.2 mg/dL [facility] Alk phos 81 37 - 153 U/L [facility] AST 15 10 - 35 U/L [facility] ALT (SGPT) 21 6 - 29 U/L [facility] Blood 03/25/2024 10:0 3 AM CDT 03/25/2024 10:05 AM CDT Narrative [facility] - 03/26/2024 4:46 PM CDT FASTING:NO FASTING: NO Gabi [facility] LAB BLOOD ORDERABLES Final Result [facility] [address] [place] [address] * Vitamin B12 (03/25/2024 10:03 AM CDT) Vitamin B12 1,068 200 - 1,100 pg/mL [facility] Blood 03/25/2024 10:0 3 AM CDT 03/25/2024 10:05 AM CDT Narrative [facility] - 03/26/2024 4:46 PM CDT FASTING:NO FASTING: NO Gabi [facility] LAB BLOOD ORDERABLES Final Result [facility] [address] [address] [phone] * Albumin Creatinine Ratio, Urine (03/25/2024 10:03 AM CDT) Creatinine, ur 178 20 - 275 mg/dL [facility] Microalbumin, ur 1.5 See Note: mg/dL [facility] Comment: Reference Range: Reference Range Not established Microalbumin/creat ratio 8 <30 mg/g creat [facility] Comment: The ADA defines abnormalities in albumin excretion as follows: Albuminuria Category ?Result (mg/g creatinine) Normal to Mildly increased ?? <30 Moderately increased ? 30-299 Severely increased ? > OR = 300 The ADA recommends that at least two of three specimens collected within a 3-6 month period be abnormal before considering a patient to be within a diagnostic category. Urine 03/25/2024 10:0 3 AM CDT 03/25/2024 10:05 AM CDT Narrative [facility] - 03/26/2024 4:46 PM CDT FASTING:NO FASTING: NO Gabi [facility] LAB URINE ORDERABLES Final Result [facility] [address] [place] [address] documented in this encounter Visit Diagnoses Diagnosis Annual physical exam- Primary Routine general medical examination at a health care facility Mixed hyperlipidemia Moderate episode of recurrent major depressive disorder (HCC) Stage 3a chronic kidney disease (HCC) Fatigue, unspecified type Neck pain Cervicalgia BMI 24.0-24.9, adult documented in this encounter Discontinued Medications Medication Sig Discontinue Reason Start Date End Da te benzonatate (TESSALON) 100 mg capsuleIndications:Cough Take 1 capsule (100 mg total) by mouth 3 (three) times a day as needed for cough 10/16/2023 03/03/2024 documented as of this encounter Historical Medications * This list may reflect changes made after this encounter. ondansetron ODT (ZOFRAN-ODT) 4 mg disintegrating tablet DISSOLVE ONE TABLET BY MOUTH EVERY 8 HOURS NEEDED FOR NUASEA AND VOMITING 11/30/2023 added in this encounter Care Teams Rouge Presser Relationship Specialty Start Date End Date Gabi Victoria PA [address] [address] PCP - General Internal Medicine 02/19/19 documented as of this encounter
--- OUTSIDE RECORDS SUMMARY | 2024-11-08 13:58 | XMS_ITS | Encounter Summary ---
Author Organization [facility] Address [address] [place] [address] Care Team Providers Care Video Manager Name Role Phone Gabi Victoria Primary Care Provider [phone] Reason for Referral * Procedure (Routine) - Authorized Specialty Diagnoses / Procedures Referred By Contac t Referred To Contact Diagnoses Localized osteoarthritis of hand, unspecified laterality Procedures Small Joint (Foot, Fingers, Toes) Injection: left thumb MCP Vianey Warren PA [address] [address] [place] [address] Phone: tel: fax: [facility] Referral ID Status Reason Start Date Expiration Date V isits Requested Visits Authorized [id number] Authorized 09/29/2024 10/29/2025 1 1 OR TELECOMMUNICATIONS ENGINEER * Procedure (Routine) - Authorized Specialty Diagnoses / Procedures Referred By Contac t Referred To Contact Diagnoses Localized osteoarthritis of hand, unspecified laterality Procedures Small Joint (Foot, Fingers, Toes) Injection: R thumb MCP Vianey Warren PA [address] [facility] [address] [address] [place] [address] [place] [address] Phone: tel: fax: [facility] Referral ID Status Reason Start Date Expiration Date V isits Requested Visits Authorized [id number] Authorized 09/29/2024 10/29/2025 1 1 OR TELECOMMUNICATIONS ENGINEER * Procedure (Routine) - Authorized Specialty Diagnoses / Procedures Referred By Contac t Referred To Contact Diagnoses Localized osteoarthritis of hand, unspecified laterality Procedures Small Joint (Foot, Fingers, Toes) Injection: R thumb IP Vianey Warren PA [address] [address] [place] [address] Phone: tel: fax: [facility] Referral ID Status Reason Start Date Expiration Date V isits Requested Visits Authorized [id number] Authorized 09/29/2024 10/29/2025 1 1 OR TELECOMMUNICATIONS ENGINEER * Procedure (Routine) - Authorized Specialty Diagnoses / Procedures Referred By Contac t Referred To Contact Diagnoses Localized osteoarthritis of hand, unspecified laterality Procedures Small Joint (Foot, Fingers, Toes) Injection: L thumb CMC Vianey Warren PA [facility] [facility] [address] [address] [place] [address] [place] [address] Phone: tel: fax: [facility] Referral ID Status Reason Start Date Expiration Date V isits Requested Visits Authorized [id number] Authorized 09/29/2024 10/29/2025 1 1 OR TELECOMMUNICATIONS ENGINEER * Procedure (Routine) - Authorized Specialty Diagnoses / Procedures Referred By Contac t Referred To Contact Diagnoses Localized osteoarthritis of hand, unspecified laterality Procedures Small Joint (Foot, Fingers, Toes) Injection: R thumb MCP Vianey Warren PA [address] [place] [address] [address] [place] [address] Phone: tel: fax: [facility] Referral ID Status Reason Start Date Expiration Date V isits Requested Visits Authorized [id number] Authorized 09/29/2024 10/29/2025 1 1 OR TELECOMMUNICATIONS ENGINEER Reason for Visit * Reason Comments Follow-up Injections Follow-up Injections Encounter Details Date Type Department Care Team (Late st Contact Info) Description 09/25/2024 10:45 AM SENIOR TELECOMMUNICATIONS ENGINEER Office Visit [facility] Hand Surgery [address] [facility] [address] [place] [id number] Vianey Warren, LUIS ARMANDO [address] [place] [address] [address] [place] [address] Localized osteoarthritis of hand, unspecified laterality (Primary Dx) Social History Tobacco Use Types [...] on file Legal Sex Female 12:08 AM SENIOR TELECOMMUNICATIONS ENGINEER Gender Identity Not on file Sexual Orientation Not on file Occupation Industry Job Start Date Job End Date Retired Not on file Not on file Not on file documented as of this encounter Progress Notes * Vianey Warren PA - 09/25/2024 10:45 AM CSTAssociated Order(s): Small Joint (Foot, Fingers, Toes) Injection: R thumb MCP; Small Joint (Foot, Fingers, Toes) Injection: L thumb CMC; Small Joint (Foot, Fingers, Toes) Injection: R thumb IP; SmallJoint (Foot, Fingers, Toes) Injection: R thumb MCP; Small Joint (Foot, Fingers, Toes) Injection: left thumb MCP Post-Procedure Diagnose(s): Localized osteoarthritis of hand, unspecified laterality Images from the original note were not included. Patient ID: Ani Ortiz is a 74 y.o. female. Visit Date: 09/25/2024 Chief Complaint: Chief Complaint Patient presents with ??? Left Hand - Follow-up, Injections ??? Right Hand - Follow-up, Injections HPI: Patient is a 74-year-old female presents today with bilateral hand pain. She has a history of bilateral thumb MCP and CMC osteoarthritis. She last received injections 05/22/2024 of bilateral thumb IP, MCP and CMC joints. She states that over the last couple of weeks she has had recurrent pain to both thumb MCP, CMC joints. She denies recent injury. She is [...] tenderness with palpation over bilateral thumb MCP and CMC joints. There is no tenderness over the A1 pulleys, no triggering is appreciated. She is able to achieve full active composite flexion extension of both hands without difficulty. She is n eurovascularly intact to tips of digits. X-rays/Imaging: No diagnosis found. Assessment/Plan There are no diagnoses linked to this encounter. Treatment / Plan: Patient presents with bilateral hand pain. She has a history of bilateral thumb osteoarthritis, no complaints of pain to both thumb MCP and CMC joints. She would like to proceed with injections, which I have given her. She will follow up as needed, and I have asked her to call the office with any questions or concerns. Small Joint (Foot, Fingers, Toes) Injection: R [...] 1 mL lidocaine 10 mg/mL (1 %); 10 mg triamcinolone 40 mg/mL Patient tolerance: Patient tolerated the procedure well with no immediate complications Small Joint (Foot, Fingers, Toes) Injection: L thumb CMC Performed by: Vianey Warren PA Authorized by: Vianey Warren PA Small Joint Injection/Aspiration: Consent Given by: Patient Verbal consent obtained?: Yes Written consent obtained?: No Supporting Documentation: Indications: Pain Procedure Details: Location: Thumb Site: L thumb CMC Prep: patient was prepped and draped in usual sterile fashion Needle Size: 27 G Approach: Dorsal Ultrasound guidance: No Medications: 1 mL lidocaine 10 mg/mL (1 %); 10 mg triamcinolone 40 mg/mL Patient tolerance: Patient tolerated the procedure well with no immediate complications Small Joint (Foot, Fingers, Toes) Injection: R thumb IP Performed by: Vianey Warren PA Authorized by: Vianey Warren PA Small Joint Injection/Aspiration: Consent Given by: Patient Verbal consent obtained?: Yes Written consent obtained?: No Supporting Documentation: Indications: Pain Procedure Details: Location: Thumb Site: R thumb IP Prep: patient was prepped and draped in [...] complications Small Joint (Foot, Fingers, Toes) Injection: left [...] with no immediate complications LUIS ARMANDO [place] OR TELECOMMUNICATIONS ENGINEER documented in this encounter Plan of Treatment Not on file documented as of this encounter Procedures Procedure Name Priority Date/Time Associated Diagnosis Comments [place] ARTHROCENTESIS ASPIR&/INJ SMALL JT/BURSA W/O US Routine 09/25/2024 10:45 AM SENIOR TELECOMMUNICATIONS ENGINEER Localized osteoarthritis of hand, unspecified laterality AZ ARTHROCENTESIS ASPIR&/INJ SMALL JT/BURSA W/O US Routine 09/25/2024 10:45 AM SENIOR TELECOMMUNICATIONS ENGINEER Localized osteoarthritis of hand, unspecified laterality AZ ARTHROCENTESIS ASPIR&/INJ SMALL JT/BURSA W/O US Routine 09/25/2024 10:45 AM SENIOR TELECOMMUNICATIONS ENGINEER Localized osteoarthritis of hand, unspecified laterality [place] ARTHROCENTESIS ASPIR&/INJ SMALL JT/BURSA W/O US Routine 09/25/2024 10:45 AM SENIOR TELECOMMUNICATIONS ENGINEER Localized osteoarthritis of hand, unspecified laterality AZ ARTHROCENTESIS ASPIR&/INJ SMALL JT/BURSA W/O US Routine 09/25/2024 10:45 AM SENIOR TELECOMMUNICATIONS ENGINEER Localized osteoarthritis of hand, unspecified laterality documented in this encounter Results * AZ ARTHROCENTESIS ASPIR&/INJ SMALL JT/BURSA W/O US (09/25/2024 10:45 AM SENIOR TELECOMMUNICATIONS ENGINEER) Narrative Vianey Warren PA - 09/25/2024 10:45 AM SENIOR TELECOMMUNICATIONS ENGINEER Vianey Warren PA ? 09/29/2024 10:37 AM [...] IN CLINIC/BEDSIDE ORDERABLES F inal Result * AZ ARTHROCENTESIS ASPIR&/INJ SMALL JT/BURSA W/O US (09/25/2024 10:45 AM SENIOR TELECOMMUNICATIONS ENGINEER) Narrative Vianey Warren PA - 09/25/2024 10:45 AM SENIOR TELECOMMUNICATIONS ENGINEER Vianey Warren PA ? 09/29/2024 10:37 AM [...] IN CLINIC/BEDSIDE ORDERABLES F inal Result * AZ ARTHROCENTESIS ASPIR&/INJ SMALL JT/BURSA W/O US (09/25/2024 10:45 AM SENIOR TELECOMMUNICATIONS ENGINEER) Narrative Vianey Warren PA - 09/25/2024 10:45 AM SENIOR TELECOMMUNICATIONS ENGINEER Vianey Warren PA ? 09/29/2024 10:37 AM [...] IN CLINIC/BEDSIDE ORDERABLES F inal Result * AZ ARTHROCENTESIS ASPIR&/INJ SMALL JT/BURSA W/O US (09/25/2024 10:45 AM SENIOR TELECOMMUNICATIONS ENGINEER) Narrative Vianey Warren PA - 09/25/2024 10:45 AM SENIOR TELECOMMUNICATIONS ENGINEER Vianey Warren PA ? 09/29/2024 10:37 AM [...] IN CLINIC/BEDSIDE ORDERABLES F inal Result * AZ ARTHROCENTESIS ASPIR&/INJ SMALL JT/BURSA W/O US (09/25/2024 10:45 AM SENIOR TELECOMMUNICATIONS ENGINEER) Narrative Vianey Warren PA - 09/25/2024 10:45 AM SENIOR TELECOMMUNICATIONS ENGINEER Vianey Warren PA ? 09/29/2024 10:37 AM [...] DURÁN IN CLINIC/BEDSIDE ORDERABLES F inal Result documented in this encounter Visit Diagnoses Diagnosis Localized osteoarthritis of hand, unspecified laterality- Primary documented in this encounter Administered Medications Inactive Administered Medications - up to 3 most recent administrations Medication Order MAR Action Action Date Dose Rate Site lidocaine (XYLOCAINE) 10 mg/mL (1 %) injection 1 mL 1 mL, One-Time Injection, Starting on Lucille 09/25/24 at 1045, For 1 dose, Indications: Administration of Local AnesthesiaIndications:Administ ration of Local Anesthesia Given 09/25/2024 10:45 AM SENIOR TELECOMMUNICATIONS ENGINEER 1 mL Right Thumb lidocaine (XYLOCAINE) 10 mg/mL (1 %) injection 1 mL 1 mL, One-Time Injection, Starting on Lucille 09/25/24 at 1045, For 1 dose, Indications: Administration of Local AnesthesiaIndications:Administ ration of Local Anesthesia Given 09/25/2024 10:45 AM SENIOR TELECOMMUNICATIONS ENGINEER 1 mL Left Thumb lidocaine (XYLOCAINE) 10 mg/mL (1 %) injection 1 mL 1 mL, One-Time Injection, Starting on Lucille 09/25/24 at 1045, For 1 dose, Indications: Administration of Local AnesthesiaIndications:Administ ration of Local Anesthesia Given 09/25/2024 10:45 AM SENIOR TELECOMMUNICATIONS ENGINEER 1 mL Right Thumb lidocaine (XYLOCAINE) 10 mg/mL (1 %) injection 1 mL 1 mL, One-Time Injection, Starting on Lucille 09/25/24 at 1045, For 1 dose, Indications: Administration of Local AnesthesiaIndications:Administ ration of Local Anesthesia Given 09/25/2024 10:45 AM SENIOR TELECOMMUNICATIONS ENGINEER 1 mL Right Thumb lidocaine (XYLOCAINE) 10 mg/mL (1 %) injection 1 mL 1 mL, One-Time Injection, Starting on Lucille 09/25/24 at 1045, For 1 dose, Indications: Administration of Local AnesthesiaIndications:Administ ration of Local Anesthesia Given 09/25/2024 10:45 AM SENIOR TELECOMMUNICATIONS ENGINEER 1 mL triamcinolone (KENALOG) 40 mg/mL injection 10 mg 10 mg, intra-articular, One-Time Injection, Starting on Lucille 09/25/24 at 1045, For 1 doseIndications:Localized osteoarthritis of hand, unspecified laterality Given 09/25/2024 10:45 AM SENIOR TELECOMMUNICATIONS ENGINEER 10 mg Right Thumb triamcinolone (KENALOG) 40 mg/mL injection 10 mg 10 mg, intra-articular, One-Time Injection, Starting on Lucille 09/25/24 at 1045, For 1 doseIndications:Localized osteoarthritis of hand, unspecified laterality Given 09/25/2024 10:45 AM SENIOR TELECOMMUNICATIONS ENGINEER 10 mg Left Thumb triamcinolone (KENALOG) 40 mg/mL injection 5 mg 5 mg, One-Time Injection, Starting on Lucille 09/25/24 at 1045, For 1 doseIndications:Localized osteoarthritis of hand, unspecified laterality Given 09/25/2024 10:45 AM SENIOR TELECOMMUNICATIONS ENGINEER 5 mg Right Thumb triamcinolone (KENALOG) 40 mg/mL injection 5 mg 5 mg, One-Time Injection, Starting on Lucille 09/25/24 at 1045, For 1 doseIndications:Localized osteoarthritis of hand, unspecified laterality Given 09/25/2024 10:45 AM SENIOR TELECOMMUNICATIONS ENGINEER 5 mg Right Thumb triamcinolone (KENALOG) 40 mg/mL injection 5 mg 5 mg, One-Time Injection, Starting on Lucille 09/25/24 at 1045, For 1 doseIndications:Localized osteoarthritis of hand, unspecified laterality Given 09/25/2024 10:45 AM SENIOR TELECOMMUNICATIONS ENGINEER 5 mg documented in this encounter Care Teams Video Manager Relationship Specialty Start Date End Date Gabi Victoria PA [address] [facility] [address] [place] [address] PCP - General Internal Medicine 02/19/19 documented as of this encounter
--- OUTSIDE RECORDS SUMMARY | 2024-11-08 13:58 | XMS_ITS | Encounter Summary ---
Author Organization [facility] Address [address] [place] [address] Care Team Providers Care Airbrush Artist Name Role Phone Gabi Victoria Primary Care Provider [phone]- [phone] Reason for Referral * MRI/CAT/PET Scan (Routine) - Authorized Specialty Diagnoses / Procedures Referred By Contac t Referred To Contact Diagnoses Former smoker Procedures CT Lung Cancer Screening Gabi Victoria PA [address] [address] Phone: tel: fax: [address] [phone] Phone: tel: Referral ID Status Reason Start Date Expiration Date V isits Requested Visits Authorized [id number] Authorized 09/02/2024 10/02/2025 1 1 * Consultation (Routine) - Closed Specialty Diagnoses / Procedures Referred By Contac t Referred To Contact Sleep Medicine Diagnoses Gabi Connelly PA [address] [facility] [address] [place] [address] Phone: tel: fax: [place] [address] [place] [address] Phone: tel: fax: Referral ID Status Reason Start Date Expiration Date V isits Requested Visits Authorized [id number] Closed Specialty Services Required 09/02/2024 10/02/2025 1 1 Question Answer Please select the performing region: [facility] [[id number]] Please select the performing department: [facility] MIKE [[id number]] To provider: GWENDOLYN CASH [[id number]] # of visits: 1 Comments Snores, dry mouth, leg cramps, wakes up gasping. Please evaluate for NITISH Reason for Visit * Reason Comments Medicare Wellness Patient is here for her annual medicare wellness. She would like to have several spots on her back and one on her right chest. Encounter Details Date Type Department Care Team (Late st Contact Info) Description 09/02/2024 9:00 AM CDT Office Visit [facility] [address] [facility] [address] [place] [phone] Gabi Victoria PA [address] [place] [address] [place] [phone] Medicare annual wellness visit, subsequent (Primary Dx); Snores; Former smoker; Moderate episode of recurrent major depressive disorder (HCC); Stage 3a chronic kidney disease (HCC); Need for influenza vaccination; Mixed hyperlipidemia; BMI 26.0-26.9,adult Social History Tobacco Use Types Packs/Day Years [...] on file 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 Jordan Avilez and Dr. Mei Alonso [facility] [address] [place] [address] [address] [address] [place] [address] Dr. Mert Napoles [address] [place] [address], [address], [place], [place] [phone] documented in this encounter Progress Notes * Gabi Victoria PA - 09/02/2024 9:00 AM CDT Images from the original note were not included. Annual Medicare Wellness Visit Ani Ortiz is a 74 y.o.female Chief Complaint: Medicare Wellness (Patient is here for her annual medicare wellness. She would like to have severalspots on her back and one on her right chest.) HPI: Patient presents for MWE and followup chronic concerns. Patient mentioned at her last visit she was having re-occurring dreams about abadnodmement. Encouraged counseling. Continue the Trintellix and the Wellbutrin XL 300 and Buspar prn Klonopin. Urology -- Dr. Fregoso Last one in november Kidney stones --- CT showed a 3mm stone -- Has flomax prn. LDCT ---Benign changes -- repeat 06/2024 Quit smoking 03/2022 Moderate to severe amount of coronary calcifications noted on LDCT done 12/2019. Referred to Cardio and Dr. Hwang added: ASA 81 Crestor increased to 40mg daily Tension LANDRY and occasional allergy sxs. Is starting to notice she is waking up with a headache. Had a LANDRY every day for the last 2 weeks. Taking Tylenol as Can't take NSAIDs. RC tear -- Dr. Hassan Injections RLS -- requip gave her a LANDRY Never tried gabapentin Using Klonipin 2-3 times a week after days she plays pickle ball as her symptoms are worse but still present every night and not addressed. Difficult falling asslep because her mined races Insomnia - Ambien Patient is aware of the warning related to this medication and her age but prefers to continue it despite the warnings. She will my chart in with infor on RLS as the cause for sleep issues. Snores and will gasp for air and wake herself up. Dry mouth in AM Wakes up with LANDRY in the AM Pneumonia vaccines - 13 and 23 are done Colonoscopy - 05/2024 -- polyps -->rep 2028 DXA - 03/2022 STABLE -- Mamm - 07/2024 LDCT -04/2023 so past due Shingrix x 2 done Tdap 2019 Review of Systems See HPI Recent Results (from the past 1008 hour(s)) Dexa Axial Skeleton Bone Density 1 or 2 Site Collection Time: 07/30/24 8:12 AM Result Value Ref Range SCRIBED DXA T-SCORE -0.6 SCRIBED DXA Z-SCORE 1.6 SCRIBED DXA BMD 0.979 Vitals: Vitals BP 120/72 (BP Location: Left arm, Patient Position: Sitting) Pulse 75 Temp 36.6 ??C (97.9 ??F) Ht 157.5 cm (5' 2 ) Wt 66 kg (145 lb 6.4 oz) SpO2 98% BMI 26.59 kg/m?? Body mass index is 26.59 kg/m??. Exam: Physical Exam Physical Exam Vitals and nursing note reviewed. [...] warm and dry. Findings: No rash. Neurological: Mental Status: She is alert and oriented to person, place, and time. Care Team Providers: Patient Care Team: Gabi Victoria PA as PCP - General (Internal Medicine) Primary Pharmacy/DME suppliers: [id number] [place], [place] - [address] [facility] [place] [phone] Problem List, Past Medical and Surgical History: Patient Active Problem List Diagnosis Mixed hyperlipidemia Anxiety Tremor History of colon polyps Cold sore Other insomnia Stage 3a chronic kidney disease (HCC) Cough Osteopenia of left hip Moderate episode of recurrent major depressive disorder (HCC) Coronary artery calcification seen on CT scan Former smoker RBBB Menopause Hyperglycemia Neck pain BMI 26.0-26.9,adult Need for influenza vaccination Snores Medicare annual wellness visit, subsequent Past Medical History: Diagnosis Date Allergic rhinitis Anxiety COPD (chronic obstructive pulmonary disease) (HCC) Coronary artery calcification Depression Suicide attempt 1969 a Emphysema of lung (HCC) Hyperlipidemia Kidney stones Mixed conductive and sensorineural hearing loss Past Surgical History: Procedure Laterality Date BLADDER SURGERY 1987 CATARACT EXTRACTION 2014 CHOLECYSTECTOMY 2014 COLONOSCOPY 2017 COSMETIC SURGERY 1978 HYSTERECTOMY 1982 RHINOPLASTY SHOULDER SURGERY Left 2015 TONSILLECTOMY 1971 Family History: Family History Problem Relation Age of Onset Hyperlipidemia Mother Other (Cancer, gioblastoma) Father Cancer Father Social History: Social History Tobacco Use Smoking status: Former Current packs/day: 0.00 Average packs/day: 1 pack/day for 20.0 years (20.0 ttl pk-yrs) Types: Cigarettes, Vaping Start date: 04/09/1997 Quit date: 04/09/2017 Years since quittin.4 Smokeless tobacco: Never Substance and Sexual Activity Drug use: Never Sexual activity: Not Currently Partners: Female control/protection: I.U.D. Alcohol Use: Not At Risk (03/03/2024) AUDIT-C Frequency of Alcohol Consumption: Monthly or less Average Number of Drinks: 1 or 2 Frequency of Binge Drinking: Never Allergies: Allergies Allergen Reactions Cephalexin Rash Cephalosporins Rash Penicillin V Potassium Rash Shellfish Unknown Erythromycin Vomiting Medications: Current Outpatient Medications: albuterol HFA (ProAir HFA) 90 mcg/actuation inhaler, Inhale 2 puffs every 4 (four) hours as needed for wheezing or shortness of breath, Disp: 8.5 g, Rfl: 0 aspirin 81 mg chewable tablet, Take 1 [...] UNTIL STONE HAS PASSED, Disp: , Rfl: Trintellix 20 mg tablet, TAKE 1 TABLET(20 MG) BY MOUTH DAILY, Disp: 90 tablet, Rfl: 1 valACYclovir (VALTREX) 1 gram tablet, Take TWO tabs po at onset of cold sore. Take TWO tabs po 12 hours later., Disp: 20 tablet, Rfl: 0 vit D3-vit F-sukmawuia-eoxg [id number] ojne-gkm-vz-mg tablet, Take 50 mcg by mouth, Disp: , Rfl: zolpidem (AMBIEN) 5 mg tablet, Take 1 tablet (5 mg total) by mouth nightly as needed for sleep, Disp: 90 tablet, Rfl: 0 Detection of Cognitive Impairment: The patient does not have cognitive impairment based on direct observation, discussion with patientor family, or review of medical records. Health Maintenance: Health Maintenance Topics with due status: Overdue Topic Date Due Hepatitis B Screening Never done Lung Cancer Screening 04/20/2024 Colon Cancer Screening-Colonoscopy 06/02/2024 Covid-19 Vaccine 07/13/2024 Health Maintenance Topics with due status: Not Due Topic Last Completion Date DTaP/Tdap/Td Vaccine 09/23/2020 Breast Cancer Screening-Mammogram 07/29/2024 Osteoporosis Screening-Bone Density Scan 07/30/2024 Fall Risk Assessment 09/02/2024 Depression Screening 09/02/2024 Well Visit 65+ 09/02/2024 Health Maintenance Topics with due status: Completed Topic Last Completion Date Pneumococcal vaccine 65+ 08/19/2020 Zoster Vaccine 11/22/2020 Hepatitis C Screening 09/25/2023 Influenza Vaccine 09/02/2024 Health Maintenance Topics with due status: Discontinued Topic Date Due Colon Cancer Screening-DNA Stool Discontinued Colon Cancer Screening-CT Colonography Discontinued Colon Cancer Screening-FIT Discontinued Colon Cancer Screening-Sigmoidoscopy Discontinued Counseling and Referral of Preventative Services: Lifestyle Recommendations Increase Physical Activity, Stop Using Tobacco, Reduce Weight, and Improve Diet Advanced Directive Durable Power of Access Clinician: Discussed Today Living Will: Discussed Today Medicare Health Risk Assessment Basic Information In general, would you say your health is: Good Do you have an advance directive, such as a living will or durable power of litigation attorney associate?: Yes Do you have to strain or struggle to hear/understand conversations?: No Over the last 2 weeks, how often have you been bothered by any of the following problems? Little Interest or Pleasure in Doing Things: Not at all Feeling Down, Depressed, or Hopeless: Not at all PHQ-2 Total Score (If total score is 3 or more points, staff should administer the PHQ-9): 0 In the past year, patient experienced: One or more falls in the last year: (!) Yes How many times?: 1 Was the patient injured in the fall?: Yes Do you feel unsteady when standing or walking?: No Do you worry about falling?: No Safety Do you have a working smoke detector in your home?: Yes Does your home have throw rugs, poor lighting, or a slippery bath tub/shower?: No Do you always fasten your seatbelt when you are in a vehicle?: Yes What is your typical mode of transportation: Car Physical Activity How many days a week do you usually exercise?: 1-3 days per week How intense is your typical exercise?: Moderate (like brisk walking) Nutrition How would you rate your appetite?: Excellent How would you describe the condition of your mouth and teeth/dentures?: Good On a typical day, how many servings of fruits and vegetables do you eat?: 2 On a typical day, how many servings of high fiber/whole-grain foods do you eat?: 2 On a typical day, how many servings of high fat/fried foods do you eat?: 0 Have you experienced any of the following problems currently or recently? Eating: No Depression Screen: PHQ Screening Over the last 2 weeks, how often have you been bothered by any of the following problems? Little Interest or Pleasure in Doing Things: Not at all Feeling Down, Depressed, or Hopeless: Not at all PHQ-2 Total Score (If total score is 3 or more points, staff should administer the PHQ-9): 0 Over the past 2 weeks, how often have you been bothered by any of the following problems? Little Interest or Pleasure in Doing Things: Not at all Feeling Down, Depressed, or Hopeless: Not at all PHQ-2 Total Score (If total score is 3 or more points, staff should administer the PHQ-9): 0 Assessment and Plan: Diagnoses and all orders for this visit: Medicare annual wellness visit, subsequent (Z00.00) (Primary) Assessment & Plan: Encouraged healthy lifestyle, good nutrition and exercise. Encouraged Calcium and Vitamin D and weight bearing exercise for bone health. Reviewed immunizations. Reviewed age appropirate screenings. Medicare Wellness Documentation is completed within the chart Snores (R06.83) Assessment & Plan: This is a significant, separately identifiable problem that was evaluated and managed on the same day as the wellness exam Patient has had increased snoring daytime sleepiness and symptoms that may be related to sleep apnea. Recommend referral to sleep Medicine to further evaluate Orders: - Ambulatory referral to Sleep Medicine; Future Former smoker (Z87.891) Assessment & Plan: Low-dose CT is due to repeat. Will place the order Orders: - CT Lung Cancer Screening; Future Moderate episode of recurrent major depressive disorder (HCC) (F33.1) Assessment & Plan: Depression symptoms have been stable with the Trintellix and Wellbutrin XL 300 and BuSpar and Klonopin p.r.n. Stage 3a chronic kidney disease (HCC) (N18.31) Assessment & Plan: Avoid nephrotoxic drugs including NSAIDs. Monitor labs. Need for influenza vaccination (Z23) Assessment & Plan: Flu vaccine updated in the office today Orders: - Flu Vaccine High Dose Tri PF 65y+ IM - Fluzone High Dose Mixed hyperlipidemia (E78.2) Assessment & Plan: Encouraged patient to follow low fat/low chol diet like the Mediterranean diet. Increase good fats in the diet. Increase exercise. Monitor labs as needed. Continue Crestor 40 BMI 26.0-26.9,adult (Z68.26) Assessment & Plan: Weight/BMI is in healthy range. Continue healthy lifestyle to maintain. Patient here for annual Medicare wellness visit and for review of complete medical problem list. All the elements of the plan were completed as outlined by CMS. A copy of the prevention plan was given to the patient. I reviewed Medicare Wellness Questionnaire (other physicians involved in care, depression screen, advanced directives), cognitive/memory, and functional assessment. I reviewed and updated the complete problem list, medication list, family history, and immunization records with the patient. I provided preventive counseling and early detection interventions to the patient through health maintenance update and summary of today's office visit. *This note is dictated using [employer] voice recognition software, variances in spelling and vocabulary are possible and unintentional.* Gabi Victoria PA-C documented in this encounter Miscellaneous Notes * Result Encounter Note - Gabi Victoria PA - 11/03/2024 2:32 PM CORRESPONDENCE ANALYST Let patient know the recent LDCT/lung cancer screening was ok. Plan to repeat in 1 year for routinescreening. ESPONDENCE ANALYST * Assessment & Plan Note - Gabi Victoria PA - 09/07/2024 10:49 PM CDT Associated Problem(s): Medicare annual wellness visit, subsequent Encouraged healthy lifestyle, good nutrition and exercise. Encouraged Calcium and Vitamin D and weight bearing exercise for bone health. Reviewed immunizations. Reviewed age appropirate screenings. Medicare Wellness Documentation is completed within the chart * Assessment & Plan Note - Gabi Victoria PA - 09/07/2024 10:49 PM CDT Associated Problem(s): Snores This is a significant, separately identifiable problem that was evaluated and managed on the same day as the wellness exam Patient has had increased snoring daytime sleepiness and symptoms that may be related to sleep apnea. Recommend referral to sleep Medicine to further evaluate * Assessment & Plan Note - Gabi Victoria PA - 09/07/2024 10:48 PM CDT Associated Problem(s): Need for influenza vaccination Flu vaccine updated in the office today * Assessment & Plan Note - Gabi Victoria PA - 09/07/2024 10:48 PM CDT Associated Problem(s): Former smoker Low-dose CT is due to repeat. Will place the order * Assessment & Plan Note - Gabi Victoria PA - 09/07/2024 10:48 PM CDT Associated Problem(s): Moderate episode of recurrent major depressive disorder (HCC) Depression symptoms have been stable with the Trintellix and Wellbutrin XL 300 and BuSpar and Klonopin p.r.n. * Assessment & Plan Note - Gabi Victoria PA - 09/07/2024 10:47 PM CDT Associated Problem(s): Stage 3a chronic kidney disease (HCC) Avoid nephrotoxic drugs including NSAIDs. Monitor labs. * Assessment & Plan Note - Gabi Victoria PA - 09/07/2024 10:47 PM CDT Associated Problem(s): Mixed hyperlipidemia Encouraged patient to follow low fat/low chol diet like the Mediterranean diet. Increase good fats in the diet. Increase exercise. Monitor labs as needed. Continue Crestor 40 * Assessment & Plan Note - Jacqui Marcus MA - 09/02/2024 9:13 AM CDT Associated Problem(s): BMI 26.0-26.9,adult Weight/BMI is in healthy range. Continue healthy lifestyle to maintain. documented in this encounter Plan of Treatment Scheduled Referrals Name Type Priority Associated Diagnoses Order Schedule Ambulatory referral to Sleep Medicine Outpatient Referral Routine Snores Expected: 09/16/2024 (Approximate), Expires: 09/02/2025 documented as of this encounter Procedures Procedure Name Priority Date/Time Associated Diagnosis Comments CT LUNG CANCER SCREENING Schedule Routine, Read Routine (OP Routine) 11/03/2024 2:19 PM CORRESPONDENCE ANALYST Former smoker documented in this encounter Results * CT Lung Cancer Screening (11/03/2024 2:19 PM CORRESPONDENCE ANALYST) Anatomical Region Laterality Modality Chest N/A Computed Tomogra phy Gabi DURÁN IMG CT PROCEDURES Final Re sult documented in this encounter Visit Diagnoses Diagnosis Medicare annual wellness visit, subsequent- Primary Snores Other dyspnea and respiratory abnormality Former smoker Personal history of tobacco use, presenting hazards to health Moderate episode of recurrent major depressive disorder (HCC) Stage 3a chronic kidney disease (HCC) Need for influenza vaccination Need for prophylactic vaccination and inoculation against influenza Mixed hyperlipidemia BMI 26.0-26.9,adult documented in this encounter Orders Immunization/Injection Count Last Ordered Date First Ordered Date FLU VACCINE HD TRI P F (65Y+) IM - FLUZONE HIGH DOSE 1 09/02/2024 documented in this encounter Care Teams Airbrush Artist Relationship Specialty Start Date End Date Gabi Victoria PA [address] [facility] [address] [place] [address] PCP - General Internal Medicine 02/19/19 documented as of this encounter
--- OUTSIDE RECORDS SUMMARY | 2024-11-08 13:58 | XMS_ITS | Encounter Summary ---
Author Organization [facility] Healthcare Address [address] [place] [address] Care Team Providers Care Outpatient Pharmacy Manager Name Role Phone Gabi Victoria Primary Care Provider [phone]- [phone] Reason for Visit * Reason Onset Date Comments Chart Review 10/03/2023 Med Adherence Encounter Details Date Type Department Care Team (Late st Contact Info) Description 10/03/2023 Telephone [facility] Accountable Care Organization [address] [place] [address] Nasreen Salgado [address] [place] [address] Chart Review (Med Adherence ) Social History Tobacco Use Types Packs/Day Years [...] on file 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 According to this report, Rosuvastatin was last refilled on 07/05/23 for a 90 day supply. Goal is to have enough medicine so that 80% or more of the days are covered each year. The patient was not contacted during this encounter. Filled on 09/25/23 ING AND FOLDING MACHINE OPERATOR documented in this encounter Plan of Treatment Not on file documented as of this encounter Visit Diagnoses Not on filedocumented in this encounter Care Teams Outpatient Pharmacy Manager Relationship Specialty Start Date End Date Gabi Victoria PA [address] [address] PCP - General Internal Medicine 02/19/19 documented as of this encounter
--- OUTSIDE RECORDS SUMMARY | 2024-11-08 13:58 | XMS_ITS | Encounter Summary ---
Author Organization [facility] Healthcare Address [address] [place] [address] Care Team Providers Care Field Broomer Name Role Phone Gabi Victoria Primary Care Provider +1- [phone] Reason for Referral * Diagnostic Imaging (Routine) - Closed Specialty Diagnoses / Procedures Referred By Contac t Referred To Contact Diagnoses Menopause Procedures Dexa Axial Skeleton Bone Density 1 or 2 Site Gabi Victoria PA [address] [place] [address] Phone: tel: fax: [facility] [address] [place] [phone] Phone: tel: fax: Referral ID Status Reason Start Date Expiration Date Visits Re quested Visits Authorized [id number] Closed 02/13/2024 2025 1 1 Encounter Details Date Type Department Care Team (Late st Contact Info) Description 02/13/2024 Orders Only [facility] Family Medicine [address] [place] [address] Gabi Victoria PA [address] [place] [address] Menopause (Primary Dx) Social History Tobacco Use Types [...] on file Legal 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 Gender Identity Not on file Sexual Orientation Not on file Occupation Industry Job Start Date Job End Date Retired Not on file Not on file Not on file documented as of this encounter Plan of Treatment Not on file documented as of this encounter Procedures Procedure Name Priority Date/Time Associated Diagnosis Comments DEXA AXIAL SKELETON BONE DENSITY 1 OR MORE SITES Schedule Routine, Read Routine (OP Routine) 07/30/2024 8:12 AM CDT Menopause documented in this encounter Results * (ABNORMAL) Dexa Axial Skeleton Bone Density 1 or 2 Site (07/30/2024 8:12 AM CDT) SCRIBED DXA T-SCORE -0.6 SCRIBED DXA Z-SCORE 1.6 SCRIBED DXA BMD 0.979 Anatomical Region Laterality Modality Body N/A Radiographic Juanis ging Gabi DURÁN IMG DXA PROCEDURES Final R esult documented in this encounter Visit Diagnoses Diagnosis Menopause- Primary Symptomatic menopausal or female climacteric states documented in this encounter Care Teams Field Broomer Relationship Specialty Start Date End Date Gabi Victoria PA [address] [facility] [address] [place] [address] PCP - General Internal Medicine 02/19/19 documented as of this encounter
--- OUTSIDE RECORDS SUMMARY | 2024-11-08 13:58 | XMS_ITS | Encounter Summary ---
Author Organization [facility] Address [address] [place] [address] Care Team Providers Care Boiler Tube Reamer Name Role Phone Gabi Victoria Primary Care Provider [phone]- [phone] Reason for Referral * Procedure (Routine) - Pending Review Specialty Diagnoses / Procedures Referred By Contac t Referred To Contact Diagnoses Localized osteoarthritis of hand, unspecified laterality Procedures Small Joint (Foot, Fingers, Toes) Injection: left thumb MCP Vianey Warren PA [address] [place] [address] Phone: tel: fax: [facility] Medical Group Referral ID Status Reason Start Date Expiration Date V isits Requested Visits Authorized [id number] Pending Review 05/23/2024 06/22/2025 1 1 * Procedure (Routine) - Pending Review Specialty Diagnoses / Procedures Referred By Contac t Referred To Contact Diagnoses Localized osteoarthritis of hand, unspecified laterality Procedures Small Joint (Foot, Fingers, Toes) Injection: R thumb MCP Vianey Warren PA [address] [place] [phone] Phone: tel: fax: [facility] Medical Group Referral ID Status Reason Start Date Expiration Date V isits Requested Visits Authorized [id number] Pending Review 05/23/2024 06/22/2025 1 1 * Procedure (Routine) - Pending Review Specialty Diagnoses / Procedures Referred By Contac t Referred To Contact Diagnoses Localized osteoarthritis of hand, unspecified laterality Procedures Small Joint (Foot, Fingers, Toes) Injection: R thumb IP Vianey Warren PA [address] [place] [address] Phone: tel: fax: [facility] Medical Group Referral ID Status Reason Start Date Expiration Date V isits Requested Visits Authorized [id number] Pending Review 05/23/2024 06/22/2025 1 1 * Procedure (Routine) - Pending Review Specialty Diagnoses / Procedures Referred By Contac t Referred To Contact Diagnoses Localized osteoarthritis of hand, unspecified laterality Procedures Small Joint (Foot, Fingers, Toes) Injection: L thumb IP Vianey Warren PA [facility] [place] [address] Phone: tel: fax: [facility] Referral ID Status Reason Start Date Expiration Date V isits Requested Visits Authorized [id number] Pending Review 05/23/2024 06/22/2025 1 1 * Procedure (Routine) - Pending Review Specialty Diagnoses / Procedures Referred By Contac t Referred To Contact Diagnoses Localized osteoarthritis of hand, unspecified laterality Procedures Small Joint (Foot, Fingers, Toes) Injection: L thumb CMC Vianey Warren PA [address] [place] [address] Phone: tel: fax: [facility] Medical [facility] Referral ID Status Reason Start Date Expiration Date V isits Requested Visits Authorized [id number] Pending Review 05/23/2024 06/22/2025 1 1 * Procedure (Routine) - Pending Review Specialty Diagnoses / Procedures Referred By Contac t Referred To Contact Diagnoses Localized osteoarthritis of hand, unspecified laterality Procedures Small Joint (Foot, Fingers, Toes) Injection: R thumb MCP Vianey Warren PA [address] [place] [address] [address] [place] [address] Phone: tel: fax: [facility] Medical Group Referral ID Status Reason Start Date Expiration Date V isits Requested Visits Authorized [id number] Pending Review 05/23/2024 06/22/2025 1 1 Reason for Visit * Reason Comments Follow-up Injections Follow-up Injections Encounter Details Date Type Department Care Team (Late st Contact Info) Description 05/22/2024 2:00 PM CDT Office Visit 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 Gender Identity Not on file Sexual Orientation Not on file Occupation Industry Job Start Date Job End Date Retired Not on file Not on file Not on file documented as of this encounter Progress Notes * Vianey Warren PA - 05/22/2024 2:00 PM CDTAssociated Order(s): Small Joint (Foot, Fingers, Toes) Injection: R thumb MCP; Small Joint (Foot, Fingers, Toes) Injection: L thumb CMC; Small Joint (Foot, Fingers, Toes) Injection: L thumb IP; SmallJoint (Foot, Fingers, Toes) Injection: R thumb IP; Small Joint (Foot, Fingers, Toes) Injection: R thumb MCP; Small Joint (Foot, Fingers, Toes) Injection: left thumb MCP Post-Procedure Diagnose(s): Localized osteoarthritis of hand, unspecified laterality Images from the original note were not included. Patient ID: Ani Ortiz is a 74 y.o. female. Visit Date: 05/22/2024 Chief Complaint: Chief Complaint Patient presents with ??? Left Hand - Follow-up, Injections ??? Right Hand - Follow-up, Injections HPI: Patient is a 74-year-old female presents today with bilateral hand pain. She has a history of bilateral thumb MCP and CMC osteoarthritis. She last received injections 01/24/2024 of bilateral thumb MCP and CMC joints. She states that over the last couple of weeks she has had recurrent pain to both thumb IP, MCP joints, and bilateral index MCP joints. [...] mild tenderness with palpation over bilateral thumb IP, MCP and CMC joints. There is no tenderness over the A1 pulleys, no triggering is appreciated.She is able to achieve full active composite flexion extension of both hands without difficulty. She is neurovascularly intact to tips of digits. X-rays/Imaging: No diagnosis found. Assessment/Plan There are no diagnoses linked to this encounter. Treatment / Plan: Patient presents with bilateral hand pain. She has a history of bilateral thumb osteoarthritis, no complaints of pain to both thumb IP, MCP and CMC joints. She would like [...] Joint (Foot, Fingers, Toes) Injection: L thumb IP Performed by: Vianey Warren PA Authorized by: Vianey Warren PA Small Joint Injection/Aspiration: Consent Given by: Patient Verbal consent obtained?: Yes Written consent obtained?: No Supporting Documentation: Indications: Pain Procedure Details: Location: Thumb Site: L thumb IP Prep: patient was prepped and [...] Procedure Name Priority Date/Time Associated Diagnosis Comments OH ARTHROCENTESIS ASPIR&/INJ SMALL JT/BURSA W/O US Routine 05/22/2024 2:00 PM CDT Localized osteoarthritis of hand, unspecified laterality OH ARTHROCENTESIS ASPIR&/INJ SMALL JT/BURSA W/O US Routine 05/22/2024 2:00 PM CDT Localized osteoarthritis of hand, unspecified laterality OH ARTHROCENTESIS ASPIR&/INJ SMALL JT/BURSA W/O US Routine 05/22/2024 2:00 PM CDT Localized osteoarthritis of hand, unspecified laterality OH ARTHROCENTESIS ASPIR&/INJ SMALL JT/BURSA W/O US Routine 05/22/2024 2:00 PM CDT Localized osteoarthritis of hand, unspecified laterality OH ARTHROCENTESIS ASPIR&/INJ SMALL JT/BURSA W/O US Routine 05/22/2024 2:00 PM CDT Localized osteoarthritis of hand, unspecified laterality OH ARTHROCENTESIS ASPIR&/INJ SMALL JT/BURSA W/O US Routine 05/22/2024 2:00 PM CDT Localized osteoarthritis of hand, unspecified laterality documented in this encounter Results * OH ARTHROCENTESIS ASPIR&/INJ SMALL JT/BURSA W/O US (05/22/2024 2:00 PM CDT) Narrative Vianey Warren PA - 05/22/2024 2:00 PM CDT Vianey Warren PA ? 05/23/2024 ??8:36 AM Small Joint (Foot, Fingers, Toes) Injection: [...] IN CLINIC/BEDSIDE ORDERABLES F inal Result * OH ARTHROCENTESIS ASPIR&/INJ SMALL JT/BURSA W/O US (05/22/2024 2:00 PM CDT) Narrative Vianey Warren PA - 05/22/2024 2:00 PM CDT Vianey Warren PA ? 05/23/2024 ??8:36 AM Small Joint (Foot, Fingers, Toes) Injection: [...] IN CLINIC/BEDSIDE ORDERABLES F inal Result * OH ARTHROCENTESIS ASPIR&/INJ SMALL JT/BURSA W/O US (05/22/2024 2:00 PM CDT) Narrative Vianey Warren PA - 05/22/2024 2:00 PM CDT Vianey Warren PA ? 05/23/2024 ??8:36 AM Small Joint (Foot, Fingers, Toes) Injection: [...] IN CLINIC/BEDSIDE ORDERABLES F inal Result * OH ARTHROCENTESIS ASPIR&/INJ SMALL JT/BURSA W/O US (05/22/2024 2:00 PM CDT) Narrative Vianey Warren PA - 05/22/2024 2:00 PM CDT Vianey Warren PA ? 05/23/2024 ??8:36 AM Small Joint (Foot, Fingers, Toes) Injection: L thumb IP Performed by: Vianey Warren PA Authorized by: Vianey Warren PA ?? Small Joint Injection/Aspiration: ??Consent Given by: ??Patient ??Verbal consent obtained?: Yes ?Written consent obtained?: No ?? Supporting Documentation: ??Indications: ??Pain Procedure Details: ??Location: ??Thumb ??Site: ??L thumb IP ??Prep: patient was prepped and draped in usual sterile fashion ?Needle Size: ??27 G ??Approach: ??Dorsal ??Ultrasound guidance: No ?Medications: ??1 mL lidocaine 10 mg/mL (1 %); 5 mg triamcinolone 40 mg/mL ??Patient tolerance: ??Patient tolerated the procedure well with no immediate complications us Vianey DURÁN IN CLINIC/BEDSIDE ORDERABLES F inal Result * OH ARTHROCENTESIS ASPIR&/INJ SMALL JT/BURSA W/O US (05/22/2024 2:00 PM CDT) Narrative Vianey Warren PA - 05/22/2024 2:00 PM CDT Vianey Warren PA ? 05/23/2024 ??8:36 AM Small Joint (Foot, Fingers, Toes) Injection: [...] IN CLINIC/BEDSIDE ORDERABLES F inal Result * OH ARTHROCENTESIS ASPIR&/INJ SMALL JT/BURSA W/O US (05/22/2024 2:00 PM CDT) Narrative Vianey Warren PA - 05/22/2024 2:00 PM CDT Vianey Warren PA ? 05/23/2024 ??8:36 AM Small Joint (Foot, Fingers, Toes) Injection: [...] 1 mL, One-Time Injection, Starting on Lucille 05/22/24 at 1400, For 1 dose, Indications: Administration of Local AnesthesiaIndications:Administ ration of Local Anesthesia Given 05/22/2024 2:00 PM CDT 1 mL Right Thumb lidocaine (XYLOCAINE) 10 mg/mL (1 %) injection 1 mL 1 mL, One-Time Injection, Starting on Lucille 05/22/24 at 1400, For 1 dose, Indications: Administration of Local AnesthesiaIndications:Administ ration of Local Anesthesia Given 05/22/2024 2:00 PM CDT 1 mL Left Thumb lidocaine (XYLOCAINE) 10 mg/mL (1 %) injection 1 mL 1 mL, One-Time Injection, Starting on Lucille 05/22/24 at 1400, For 1 dose, Indications: Administration of Local AnesthesiaIndications:Administ ration of Local Anesthesia Given 05/22/2024 2:00 PM CDT 1 mL Left Thumb lidocaine (XYLOCAINE) 10 mg/mL (1 %) injection 1 mL 1 mL, One-Time Injection, Starting on Lucille 05/22/24 at 1400, For 1 dose, Indications: Administration of Local AnesthesiaIndications:Administ ration of Local Anesthesia Given 05/22/2024 2:00 PM CDT 1 mL Right Thumb lidocaine (XYLOCAINE) 10 mg/mL (1 %) injection 1 mL 1 mL, One-Time Injection, Starting on Lucille 05/22/24 at 1400, For 1 dose, Indications: Administration of Local AnesthesiaIndications:Administ ration of Local Anesthesia Given 05/22/2024 2:00 PM CDT 1 mL Right Thumb lidocaine (XYLOCAINE) 10 mg/mL (1 %) injection 1 mL 1 mL, One-Time Injection, Starting on Lucille 05/22/24 at 1400, For 1 dose, Indications: Administration of Local AnesthesiaIndications:Administ ration of Local Anesthesia Given 05/22/2024 2:00 PM CDT 1 mL triamcinolone (KENALOG) 40 mg/mL injection 10 mg 10 mg, intra-articular, One-Time Injection, Starting on Lucille 05/22/24 at 1400, For 1 doseIndications:Localized osteoarthritis of hand, unspecified laterality Given 05/22/2024 2:00 PM CDT 10 mg Right Thumb triamcinolone (KENALOG) 40 mg/mL injection 10 mg 10 mg, intra-articular, One-Time Injection, Starting on Lucille 05/22/24 at 1400, For 1 doseIndications:Localized osteoarthritis of hand, unspecified laterality Given 05/22/2024 2:00 PM CDT 10 mg Left Thumb triamcinolone (KENALOG) 40 mg/mL injection 5 mg 5 mg, One-Time Injection, Starting on Lucille 05/22/24 at 1400, For 1 doseIndications:Localized osteoarthritis of hand, unspecified laterality Given 05/22/2024 2:00 PM CDT 5 mg Left Thumb triamcinolone (KENALOG) 40 mg/mL injection 5 mg 5 mg, One-Time Injection, Starting on Lucille 05/22/24 at 1400, For 1 doseIndications:Localized osteoarthritis of hand, unspecified laterality Given 05/22/2024 2:00 PM CDT 5 mg Right Thumb triamcinolone (KENALOG) 40 mg/mL injection 5 mg 5 mg, One-Time Injection, Starting on Lucille 05/22/24 at 1400, For 1 doseIndications:Localized osteoarthritis of hand, unspecified laterality Given 05/22/2024 2:00 PM CDT 5 mg Right Thumb triamcinolone (KENALOG) 40 mg/mL injection 5 mg 5 mg, One-Time Injection, Starting on Lucille 05/22/24 at 1400, For 1 doseIndications:Localized osteoarthritis of hand, unspecified laterality Given 05/22/2024 2:00 PM CDT 5 mg documented in this encounter Care Teams Boiler Tube Reamer Relationship Specialty Start Date End Date Gabi Victoria PA [address] [place] [address] PCP - General Internal Medicine 02/19/19 documented as of this encounter
--- OUTSIDE RECORDS SUMMARY | 2024-11-08 13:58 | XMS_ITS | Encounter Summary ---
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 Thanks. ER PNEUMATIC * Telephone Encounter - Yeimi Cordoba LPN - 12/03/2023 10:46 AM ROLLER PNEUMATIC Pt responded back in [employer] message that she is feeling better but has not passed stone yet. Pt isfollowing up with Dr. Fregoso ER PNEUMATIC * Telephone Encounter - Yeimi Cordoba LPN - 12/03/2023 8:29 AM ROLLER PNEUMATIC Sent [employer] message to check on the patient ER PNEUMATIC * Telephone Encounter - Yeimi Cordoba LPN - 11/30/2023 4:15 PM ROLLER PNEUMATIC Pt was seen at [facility] on 11/30/23 due to c/o suprapubic abdominal pain and right lower quadrantabdominal pain. Pt had CT of pelvis done which showed a kidney stone on right side. Pt was discharged with Hydrocodone-APAP 5-325mg PO Q HS PRN #10, Zofran PRN and Ibuprofen PRN. See attached notes. Will call patient and check on how she is doing early next week. ER PNEUMATIC documented in this encounter Plan of Treatment Not on file documented as of this encounter Visit Diagnoses Not on filedocumented in this encounter Care Teams Protection Chief Industrial Plant Relationship Specialty Start Date End Date Gabi Victoria PA [address] [place] [address] PCP - General Internal Medicine 02/19/19 documented as of this encounter
--- OUTSIDE RECORDS SUMMARY | 2024-11-08 13:58 | XMS_ITS | Encounter Summary ---
Author Organization [facility] Address [address] [place] [address] Care Team Providers Care Direct Care Counselor Name Role Phone Gabi Victoria Primary Care Provider [phone]- [phone] Reason for Referral * Procedure (Routine) - Pending Review Specialty Diagnoses / Procedures Referred By Contac t Referred To Contact Diagnoses Osteoarthritis of thumb, unspecified laterality Procedures Small Joint (Foot, Fingers, Toes) Injection: left thumb MCP Vianey Warren PA [address] [place] [address] [place] [address] Phone: tel: fax: [facility] Medical Group Referral ID Status Reason Start Date Expiration Date V isits Requested Visits Authorized [id number] Pending Review 10/18/2023 11/16/2024 1 1 ET WINDER * Procedure (Routine) - Pending Review Specialty Diagnoses / Procedures Referred By Contac t Referred To Contact Diagnoses Osteoarthritis of thumb, unspecified laterality Procedures Small Joint (Foot, Fingers, Toes) Injection: R thumb MCP Vianey Warren PA [address] [place] [address] [place] [id number] Phone: tel: fax: [facility] Medical Group Referral ID Status Reason Start Date Expiration Date V isits Requested Visits Authorized [id number] Pending Review 10/18/2023 11/16/2024 1 1 ET WINDER * Procedure (Routine) - Pending Review Specialty Diagnoses / Procedures Referred By Contac t Referred To Contact Diagnoses Osteoarthritis of thumb, unspecified laterality Procedures Small Joint (Foot, Fingers, Toes) Injection: L thumb CMC Vianey Warren PA [facility] [facility] [facility] [address] [place] [address] [place] [id number] Phone: tel: fax: [facility] Medical [facility] Referral ID Status Reason Start Date Expiration Date V isits Requested Visits Authorized [id number] Pending Review 10/18/2023 11/16/2024 1 1 ET WINDER * Procedure (Routine) - Pending Review Specialty Diagnoses / Procedures Referred By Hiram t Referred To Contact Diagnoses Osteoarthritis of thumb, unspecified laterality Procedures Small Joint (Foot, Fingers, Toes) Injection: R thumb CMC Vianey Warren PA [address] [place] [address] [address] [place] [phone] Phone: tel: fax: [facility] Referral ID Status Reason Start Date Expiration Date V isits Requested Visits Authorized [id number] Pending Review 10/18/2023 11/16/2024 1 1 ET WINDER Reason for Visit * Reason Comments Injections Injections Encounter Details Date Type Department Care Team (Late st Contact Info) Description 10/18/2023 10:15 AM CARPET WINDER Office Visit [facility] Medical Group Hand Surgery [address] [place] [address] [place] [phone] Vianey Warren PA [address] [place] [address] [address] Osteoarthritis of thumb, unspecified laterality (Primary Dx) Social History Tobacco [...] on file Legal Sex Female 12:08 AM CARPET WINDER Gender Identity Not on file Sexual Orientation Not on file Occupation Industry Job Start Date Job End Date Retired Not on file Not on file Not on file documented as of this encounter Progress Notes * Vianey Warren PA - 10/18/2023 10:15 AM CSTAssociated Order(s): Small Joint (Foot, Fingers, Toes) Injection: R thumb CMC; Small Joint (Foot, Fingers, Toes) Injection: L thumb CMC; Small Joint (Foot, Fingers, Toes) Injection: R thumb MCP; Small Joint (Foot, Fingers, Toes) Injection: left thumb MCP Post-Procedure Diagnose(s): Osteoarthritis of thumb, unspecified laterality Images from the original note were not included. Patient ID: Ani Ortiz is a 73 y.o. female. Visit Date: 10/18/2023 NEW PATIENT VISIT Chief Complaint: Chief Complaint Patient presents with ??? Left Hand - Injections ??? Right Hand - Injections HPI: Patient is a 73-year-old female who has been referred by Emiliana Hamilton NP for further evaluation of bilateral hand pain. She tells me that she has a history of bilateral thumb osteoarthritis, is been previously seen by another local hand surgeon. She reports that she has had corticosteroid injections of her thumb CMC and MCP joints in the past. The most recent of these injections was approximatel y 3 years ago. She reports that the injections resolved her pain until approximately 1 year ago. She reports that the pain has been increasing, and has difficulty doing activities such as gripping ortwisting. She has tried pmtj-[id number] analgesics. She has not tried splint wear. She denies recent injury. Denies numbness or tingling. Allergies: Cephalexin, Cephalosporins, Penicillin v potassium, Shellfish, and Erythromycin Past Medical History: Past Medical History: Diagnosis Date ??? Allergic rhinitis ??? Anxiety ??? COPD (chronic obstructive pulmonary disease) ([facility]) ??? Coronary artery calcification ??? Depression Suicide attempt 1969 a ??? Emphysema of lung (HCC) ??? Hyperlipidemia ??? Kidney stones ??? Mixed conductive and sensorineural hearing loss Past Surgical History: Past Surgical History: Procedure Laterality Date ??? BLADDER SURGERY 1987 ??? CATARACT EXTRACTION 2014 ??? CHOLECYSTECTOMY 2014 ??? COLONOSCOPY 2016 ??? COSMETIC SURGERY 1977 ??? HYSTERECTOMY 1981 ??? RHINOPLASTY ??? SHOULDER SURGERY Left 2014 ??? TONSILLECTOMY 1971 Social History: Social History Tobacco Use ??? Smoking status: Former Packs/day: 1.00 Years: 20.00 Additional pack years: 0.00 Total pack years: 20.00 Types: Cigarettes, Vaping Quit date: 04/09/2017 Years since quittin.5 ??? Smokeless tobacco: Never Substance and Sexual Activity ??? Drug use: Never ??? Sexual activity: Not Currently Partners: Female control/protection: I.U.D. Alcohol Use: Not At Risk (08/14/2023) AUDIT-C ??? Frequency of Alcohol Consumption: Monthly or less ??? Average Number of Drinks: 1 or 2 ??? Frequency of Binge Drinking: Less than monthly ROS: Constitutional: Negative for fever, weight loss. Respiratory: Negative for cough, sob or wheezing. Cardiac: negative for CP or palpitations. Gastrointestinal: Negative for abdominal pain, n/v/d. Neurological: Negative for speech difficulty, motor weakness. Hematological: Negative for bruising, bleeding. Lymph: negative for swollen glands Physical Exam: General: A&O x 3, NAD, Well appearing Eyes: EOMs intact. PERRL. Integument: skin is warm and dry. Neuro: CN II-XII grossly intact. Pt gait is stable, balance WNL. Sensation intact. Cardiovascular: 2+ capillary refill to all upper digits bilaterally. On examination of both upper extremity she does have mild enlargement noted to bilateral thumb MCP joints as well as bilateral index MCP joints. There is subluxation noted bilaterally of the 1st metacarpal at the CMC joint. She has mild tenderness with manipulation of both thumb CMC joints as well as both thumb MCP joints. She is able to achieve full active composite flexion extension of both hands without difficulty. She is neurovascularly intact to tips of digits. She can flex and extend at the wrist without difficulty. X-rays/Imaging: No diagnosis found. Treatment / Plan: Today I discussed the diagnosis of thumb osteoarthritis with the patient and its associated anatomy. We discussed treatment options to include [id number] analgesics, splint wear and corticosteroid injection. Patient would like to proceed with a corticosteroid injection, which I have given her. She will return for follow-up in 1 month and I have asked her to call the office with any questions or concerns. Small Joint (Foot, Fingers, Toes) Injection: R thumb CMC Performed by: Vianey Warren PA Authorized by: Vianey Warren PA Small Joint Injection/Aspiration: Consent Given by: Patient Verbal consent obtained?: Yes Written consent obtained?: No Supporting Documentation: Indications: Pain Procedure Details: Location: Thumb Site: R thumb CMC Prep: patient was prepped and [...] with no immediate complications LUIS ARMANDO Cintron ET WINDER documented in this encounter Plan of Treatment Not on file documented as of this encounter Procedures Procedure Name Priority Date/Time Associated Diagnosis Comments AK ARTHROCENTESIS ASPIR&/INJ SMALL JT/BURSA W/O US Routine 10/18/2023 10:15 AM CARPET WINDER Osteoarthritis of thumb, unspecified laterality AK ARTHROCENTESIS ASPIR&/INJ SMALL JT/BURSA W/O US Routine 10/18/2023 10:15 AM CARPET WINDER Osteoarthritis of thumb, unspecified laterality AK ARTHROCENTESIS ASPIR&/INJ SMALL JT/BURSA W/O US Routine 10/18/2023 10:15 AM CARPET WINDER Osteoarthritis of thumb, unspecified laterality AK ARTHROCENTESIS ASPIR&/INJ SMALL JT/BURSA W/O US Routine 10/18/2023 10:15 AM CARPET WINDER Osteoarthritis of thumb, unspecified laterality documented in this encounter Results * AK ARTHROCENTESIS ASPIR&/INJ SMALL JT/BURSA W/O US (10/18/2023 10:15 AM CARPET WINDER) Narrative Vianey Warren PA - 10/18/2023 10:15 AM Vianey Brown PA ? 10/18/2023 ??2:35 PM Small Joint (Foot, Fingers, Toes) Injection: left [...] IN CLINIC/BEDSIDE ORDERABLES F inal Result * AK ARTHROCENTESIS ASPIR&/INJ SMALL JT/BURSA W/O US (10/18/2023 10:15 AM CARPET WINDER) Narrative Vianey Warren PA - 10/18/2023 10:15 AM Vianey Brown PA ? 10/18/2023 ??2:35 PM Small Joint (Foot, Fingers, Toes) Injection: R [...] IN CLINIC/BEDSIDE ORDERABLES F inal Result * AK ARTHROCENTESIS ASPIR&/INJ SMALL JT/BURSA W/O US (10/18/2023 10:15 AM CARPET WINDER) Narrative Vianey Warren PA - 10/18/2023 10:15 AM CARPET WINDER Vianey Warren PA ? 10/18/2023 ??2:35 PM Small Joint (Foot, Fingers, Toes) Injection: L [...] IN CLINIC/BEDSIDE ORDERABLES F inal Result * AK ARTHROCENTESIS ASPIR&/INJ SMALL JT/BURSA W/O US (10/18/2023 10:15 AM CARPET WINDER) Narrative Vianey Warren PA - 10/18/2023 10:15 AM CARPET WINDER Vianey Warren PA ? 10/18/2023 ??2:35 PM Small Joint (Foot, Fingers, Toes) Injection: R thumb CMC Performed by: Vianey Warren PA Authorized by: Vianey Warren PA ?? Small Joint Injection/Aspiration: ??Consent Given by: ??Patient ??Verbal consent obtained?: Yes ?Written consent obtained?: No ?? Supporting Documentation: ??Indications: ??Pain Procedure Details: ??Location: ??Thumb ??Site: ??R thumb CMC ??Prep: patient was prepped and draped in usual sterile fashion ?Needle Size: ??27 G ??Approach: ??Dorsal ??Ultrasound guidance: No ?Medications: ??1 mL lidocaine 10 mg/mL (1 %); 10 mg triamcinolone 40 mg/mL ??Patient tolerance: ??Patient tolerated the procedure well with no immediate complications us Vianey DURÁN IN CLINIC/BEDSIDE ORDERABLES F inal Result documented in this encounter Visit Diagnoses Diagnosis Osteoarthritis of thumb, unspecified laterality- Primary documented in this encounter Administered Medications Inactive Administered Medications - up to 3 most recent administrations Medication Order MAR Action Action Date Dose Rate Site lidocaine (XYLOCAINE) 10 mg/mL (1 %) injection 1 mL 1 mL, One-Time Injection, Starting on Lucille 10/18/23 at 1015, For 1 dose, Indications: Administration of Local AnesthesiaIndications:Administ ration of Local Anesthesia Given 10/18/2023 10:15 AM CARPET WINDER 1 mL Right Thumb lidocaine (XYLOCAINE) 10 mg/mL (1 %) injection 1 mL 1 mL, One-Time Injection, Starting on Lucille 10/18/23 at 1015, For 1 dose, Indications: Administration of Local AnesthesiaIndications:Administ ration of Local Anesthesia Given 10/18/2023 10:15 AM CARPET WINDER 1 mL Left Thumb lidocaine (XYLOCAINE) 10 mg/mL (1 %) injection 1 mL 1 mL, One-Time Injection, Starting on Lucille 10/18/23 at 1015, For 1 dose, Indications: Administration of Local AnesthesiaIndications:Administ ration of Local Anesthesia Given 10/18/2023 10:15 AM CARPET WINDER 1 mL Right Thumb lidocaine (XYLOCAINE) 10 mg/mL (1 %) injection 1 mL 1 mL, One-Time Injection, Starting on Lucille 10/18/23 at 1015, For 1 dose, Indications: Administration of Local AnesthesiaIndications:Administ ration of Local Anesthesia Given 10/18/2023 10:15 AM CARPET WINDER 1 mL triamcinolone (KENALOG) 40 mg/mL injection 10 mg 10 mg, intra-articular, One-Time Injection, Starting on Lucille 10/18/23 at 1015, For 1 doseIndications:Osteoarthritis of thumb, unspecified laterality Given 10/18/2023 10:15 AM CARPET WINDER 10 mg Right Thumb triamcinolone (KENALOG) 40 mg/mL injection 10 mg 10 mg, intra-articular, One-Time Injection, Starting on Lucille 10/18/23 at 1015, For 1 doseIndications:Osteoarthritis of thumb, unspecified laterality Given 10/18/2023 10:15 AM CARPET WINDER 10 mg Left Thumb triamcinolone (KENALOG) 40 mg/mL injection 5 mg 5 mg, One-Time Injection, Starting on Lucille 10/18/23 at 1015, For 1 doseIndications:Osteoarthritis of thumb, unspecified laterality Given 10/18/2023 10:15 AM CARPET WINDER 5 mg Right Thumb triamcinolone (KENALOG) 40 mg/mL injection 5 mg 5 mg, One-Time Injection, Starting on Lucille 10/18/23 at 1015, For 1 doseIndications:Osteoarthritis of thumb, unspecified laterality Given 10/18/2023 10:15 AM CARPET WINDER 5 mg documented in this encounter Care Teams Direct Care Counselor Relationship Specialty Start Date End Date Gabi Victoria PA [address] [facility] [address] [place] [address] PCP - General Internal Medicine 02/19/19 documented as of this encounter
--- OUTSIDE RECORDS SUMMARY | 2024-11-08 13:59 | XMS_ITS | Encounter Summary ---
Author Organization [facility] Healthcare Address [address] [place] [address] Care Team Providers Care Archeologist Classical Name Role Phone Gabi Victoria Primary Care Provider +1- [phone] Reason for Visit * Reason Comments chroninc concerns Pt presents today fo r [facility] Wellness Visit. Pt reporting her prozac is not working. Stating that ship has sailed. Pt states she goes up to her room and just cries for no reason. Pt reporting blood pressures lately of 100/49. Pt states she has COPD & kidney disease and isnt sure if the low BP reading are due to her Dx. Encounter Details Date Type Department Care Team (Latest Contact Info) Description 08/14/2023 10:00 AM CDT Office Visit [facility] Medical Group Family Medicine [address] [facility] [address] [place] [phone] Gabi Victoria PA [address] [address] Annual physical exam (Primary Dx); Need for immunization against influenza; Moderate episode of recurrent major depressive disorder (HCC); Stage 3a chronic kidney disease (HCC); Mixed hyperlipidemia; Other insomnia; Coronary artery calcification seen on CT scan; BMI 24.0-24.9, adult Social History Tobacco Use Types Packs/Day Years Used Date Smoking Tobacco: Former Cigarettes Q uit: 04/09/2020 Vaping Smokeless Tobacco: Never Tobacco Cessation:Counseling Given: [...] more points, staff should administer the PHQ-9) 2 08/14/2023 Comments Unknown Sex and Gender Information Value Date Recorded Sex Assigned at Not on file Legal Sex Female 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 Gender Identity Not on file Sexual Orientation Not on file Occupation Industry Job Start Date Job End Date Retired Not on file Not on file Not on file documented as of this encounter Last Filed Vital Signs Vital Sign Reading Time Taken Comments Blood Pressure 106/68 08/14/2023 9:58 AM CDT Pulse 78 08/14/2023 9:58 AM CDT Temperature 36.6 ??C (97.8 ??F) 08/14/2023 9:58 AM CD T Respiratory Rate - - Oxygen Saturation 98% 08/14/2023 9:58 AM CDT Inhaled Oxygen Concentration - - Weight 61.6 kg (135 lb 14.4 oz) 08/14/2023 9:58 AM CDT Height 157.5 cm (5' 2.01 ) 08/14/2023 9:58 AM CD T Body Mass Index 24.85 08/14/2023 9:58 AM CDT documented in this encounter Ordered Prescriptions Prescription Sig Dispense Quantity Refills Last Filled Start Date End Date vortioxetine (TRINTELLIX) 10 mg tabletIndications: major depressive disorder Take 1 tablet (10 mg total) by mouth daily Taper Prozac as instructed. 90 tablet 08/16/2023 09/25/2023 documented in this encounter Progress Notes * Gabi Victoria PA - 08/14/2023 10:00 AM CDT Images from the original note were not included. Subjective/Objective Patient ID: Ani Ortiz is a 73 y.o. female. Chief Complaint chroninc concerns (Pt presents today for [facility] Wellness Visit. Pt reporting her prozac is not working. Stating that ship has sailed. Pt states she goes up to her room and just cries for no reason. Ptreporting blood pressures lately of 100/49. Pt states she has COPD & kidney disease and isnt sure if the low BP reading are due to her Dx. ) HPI Patient presents for [facility] exam and followup chronic concerns. Urology -- Dr. Fregoso Followup prn. Kidney stones --- CT showed a 3mm stone -- Has flomax prn. Depression - Feels like the meds are not working as well as it did. Feels like she can just constantly burst into tear. Not sleeping without Ambien 10mg Appetite is the same Patients is less/being tried. Prozac 60mg and WellbutrinXL 300,and klonipin hs Stable. Quit buspar as didn't think it did much. She is doing regular counseling LDCT ---Benign changes -- repeat 06/2024 Quit [...] daily Tension LANDRY and occasional allergy sxs. Responds to IBU -- Pneumonia vaccines - 13 and 23 are done Colonoscopy - 05/2019--->2023 DXA - 03/2022 STABLE -- Mamm - 06/2023 LDCT - 04/2023 Shingrix x 2 done Tdap 2019 Review of Systems See [facility] Vitals: 08/14/23 0958 BP: 106/68 BP Location: Left arm Patient Position: Sitting Pulse: 78 Temp: 36.6 ??C (97.8 ??F) SpO2: 98% Weight: 61.6 kg (135 lb 14.4 oz) Height: 157.5 cm (5' 2.01 ) Physical Exam Vitals and nursing note [...] health. Reviewed immunizations Reviewed age appropirate screenings. Need for immunization against influenza (Z23) Assessment & Plan: Flu vaccine updated in the office today Orders: - Flu Vaccine Quad High Dose PF 65Y+ IM - Fluzone High Dose Quad Moderate episode of recurrent major depressive disorder (HCC) (F33.1) Assessment & Plan: Patient's symptoms are still not well controlled. She quit the BuSpar she thinks it did not help much. She would like to stop the Prozac and try Trintellix. Provided the following taper schedule. Prozac 40mg x 7 days and then 20mg x 7 days then stop Trintellix 10mg one daily. Continue Wellbutrin XL 300 and then Klonopin HS as needed Stage 3a chronic kidney disease (HCC) (N18.31) Assessment & Plan: Avoid nephrotoxic drugs including NSAIDs. Monitor labs. Mixed hyperlipidemia (E78.2) Assessment & Plan: Encouraged patient to follow low fat/low chol diet like the Mediterranean diet. Increase good fats in the diet. Increase exercise. Monitor labs as needed. Continue Crestor 40 Other insomnia (G47.09) Assessment & Plan: Patient wants to continue with the Ambien. She states that is the only thing that helps. She is aware of the black box warnings related to her age Coronary artery calcification seen on CT scan (I25.10) Assessment & Plan: Referred to Cardio Dr. Hwang 11/2020 Crestor increased to 40mg to get LDL below 70 [id number] started Stress ECHO appears normal. BMI 24.0-24.9, adult (Z68.24) Assessment & Plan: Weight/BMI is in healthy range. Continue healthy lifestyle to maintain. Weight/BMI is in healthy range. Continue healthy lifestyle to maintain. Other orders - vortioxetine (TRINTELLIX) 10 mg tablet; Take 1 tablet (10 mg total) by mouth daily Taper Prozac as instructed. *This note is dictated using [employer] medical voice recognition software, variances in spelling and vocabulary are possible and unintentional.* Gabi Victoria PA-C Cosigned by Herrera Sidhu MD at 08/26/2023 10:08 PM CDT documented in this encounter Miscellaneous Notes * Assessment & Plan Note - Gabi Victoria PA - 08/26/2023 5:38 PM CDT Associated Problem(s): Need for immunization against influenza (Resolved 09/25/2023) Flu vaccine updated in the office today * Assessment & Plan Note - Gabi Victoria PA - 08/26/2023 5:37 PM CDT Associated Problem(s): Annual physical exam (Resolved 09/25/2023) Encouraged healthy lifestyle, good nutrition and exercise. Encouraged Calcium and Vitamin D and weight bearing exercise for bone health. Reviewed immunizations Reviewed age appropirate screenings. * Assessment & Plan Note - Gabi Victoria PA - 08/26/2023 5:37 PM CDT Associated Problem(s): Stage 3a chronic kidney disease (HCC) Avoid nephrotoxic drugs including NSAIDs. Monitor labs. * Assessment & Plan Note - Gabi Victoria PA - 08/26/2023 5:36 PM CDT Associated Problem(s): Mixed hyperlipidemia Encouraged patient to follow low fat/low chol diet like the Mediterranean diet. Increase good fats in the diet. Increase exercise. Monitor labs as needed. Continue Crestor 40 * Assessment & Plan Note - Gabi Victoria PA - 08/26/2023 5:36 PM CDT Associated Problem(s): Other insomnia Patient wants to continue with the Ambien. She states that is the only thing that helps. She is aware of the black box warnings related to her age * Assessment & Plan Note - Gabi Victoria PA - 08/26/2023 5:36 PM CDT Associated Problem(s): Coronary artery calcification seen on CT scan Referred to Cardio Dr. Hwang 11/2020 Crestor increased to 40mg to get LDL below 70 [id number] started Stress ECHO appears normal. * Assessment & Plan Note - Gabi Victoria PA - 08/14/2023 10:43 AM CDT Associated Problem(s): Moderate episode of recurrent major depressive disorder (HCC) This is a significant, separately identifiable problem [...] 300 and then Klonopin HS as needed * Assessment & Plan Note - Leonela Combs MA - 08/14/2023 10:03 AM CDT Associated Problem(s): BMI 24.0-24.9, adult (Resolved 09/25/2023) Weight/BMI is in healthy range. Continue healthy lifestyle to maintain. Weight/BMI is in healthy range. Continue healthy lifestyle to maintain. documented in this encounter Plan of Treatment Not on file documented as of this encounter Visit Diagnoses Diagnosis Annual physical exam- Primary Routine general medical examination at a health care facility Need for immunization against influenza Need for prophylactic vaccination and inoculation against influenza Moderate episode of recurrent major depressive disorder (HCC) Stage 3a chronic kidney disease (HCC) Mixed hyperlipidemia Other insomnia Coronary artery calcification seen on CT scan BMI 24.0-24.9, adult documented in this encounter Discontinued Medications Medication Sig Discontinue Reason Start Date End Da te busPIRone (BUSPAR) 15 mg tabletIndications:Anxiety TAKE 1 TABLET(15 MG) BY MOUTH THREE TIMES DAILY 03/07/2023 08/14/2023 FLUoxetine (PROzac) 20 mg capsule TAKE 1 CAPSULE(20 MG) BY MOUTH DAILY 06/06/2023 08/16/2023 FLUoxetine (PROzac) 40 mg capsule TAKE 1 CAPSULE(40 MG) BY MOUTH DAILY 03/07/2023 08/16/2023 documented as of this encounter Orders Immunization/Injection Count Last Ordered Date First Ordered Date FLU VACCINE HIGH DOSE QUAD P F 65Y+ IM - FLUZONE HIGH DOS 1 08/14/2023 documented in this encounter Care Teams Archeologist Classical Relationship Specialty Start Date End Date Gabi Victoria PA [address] [facility] [address] [place] [address] PCP - General Internal Medicine 02/19/19 documented as of this encounter
--- OUTSIDE RECORDS SUMMARY | 2024-11-08 13:59 | XMS_ITS | Encounter Summary ---
Author Organization [facility] Healthcare Address [address] [place] [id number] Care Team Providers Care Surgical Orderly Name Role Phone Gabi Victoria Primary Care Provider [phone] Reason for Visit * Reason Comments Follow-up Patient is here for a f/u on her Trintellix. Encounter Details Date Type Department Care Team (Latest Contact Info) Description 09/25/2023 11:00 AM SLOT MACHINE KEY PERSON Office Visit [facility] Medical Group Family Medicine [address] [facility] [address] [place] [phone] Gabi Victoria PA [address] [facility] [address] [place] [phone] Coronary artery calcification seen on CT scan (Primary Dx); Mixed hyperlipidemia; Hyperglycemia; Stage 3a chronic kidney disease (HCC); Fatigue, unspecified type; Moderate episode of recurrent major depressive disorder (HCC); Anxiety; BMI 25.0-25.9,adult Social History Tobacco Use Types Packs/Day Years [...] on file Legal Sex Female 12:08 AM SLOT MACHINE KEY PERSON Gender Identity Not on file Sexual Orientation Not on file Occupation Industry Job Start Date Job End Date Retired Not on file Not on file Not on file documented as of this encounter Last Filed Vital Signs Vital Sign Reading Time Taken Comments Blood Pressure 118/76 09/25/2023 11:04 AM SLOT MACHINE KEY PERSON Pulse 55 09/25/2023 11:04 AM SLOT MACHINE KEY PERSON Temperature 37.1 ??C (98.7 ??F) 09/25/2023 11:[address] Respiratory Rate - - Oxygen Saturation 97% 09/25/2023 11:04 AM SLOT MACHINE KEY PERSON Inhaled Oxygen Concentration - - Weight 62.2 kg (137 lb 1.6 oz) 09/25/2023 11:04 AM SLOT MACHINE KEY PERSON Height 157.5 cm (5' 2 ) 09/25/2023 11:04 AM SLOT MACHINE KEY PERSON Body Mass Index 25.08 09/25/2023 11:04 AM SLOT MACHINE KEY PERSON documented in this encounter Ordered Prescriptions Prescription Sig Dispense Quantity Refills Last Filled Start Date End Date rosuvastatin (CRESTOR) 40 mg tabletIndications:Co ronary artery calcification seen on CT scan,Mixed hyperlipidemia Take 1 tablet (40 mg total) by mouth daily 90 tablet 3 09/25/2023 4 vortioxetine (TRINTELLIX) 10 mg tabletIndications:ma cyrus depressive disorder Take 1 tablet (10 mg total) by mouth daily 90 tablet 09/25/2023 4 documented in this encounter Progress Notes * Gabi Victoria PA - 09/25/2023 11:00 AM CST Images from the original note were not included. Subjective/Objective Patient ID: Ani Ortiz is a 73 y.o. female. Chief Complaint Follow-up (Patient is here for a f/u on her Trintellix.) HPI Patient presents to followup chronic concerns. At 08/14 appt transitioned off the Prozac to Trintellix 10mg Continued the Wellbutrin XL 300 and prn Klonopin. 09/03 -- positive COVID -- she is back to baseline. Review of Systems See HPI Vitals: 09/25/23 1104 BP: 118/76 BP Location: Left arm Patient Position: Sitting Pulse: 55 Temp: 37.1 ??C (98.7 ??F) SpO2: 97% Weight: 62.2 kg (137 lb 1.6 oz) Height: 157.5 cm (5' 2 ) [...] artery calcification seen on CT scan (I25.10) (Primary) Assessment & Plan: LDCT done 12/2019 showed moderate to severe amount of coronary calcifications. Referred to Cardio Dr. Hwang 11/2020 Crestor increased to 40mg to get LDL below 70 [id number] started Stress ECHO appears normal. Orders: - rosuvastatin (CRESTOR) 40 mg tablet; Take 1 tablet (40 mg total) by mouth daily Mixed hyperlipidemia (E78.2) Assessment & Plan: Encouraged patient to follow low fat/low chol diet like the Mediterranean diet. Increase good fats in the diet. Increase exercise. Monitor labs as needed. Continue Crestor 40 Orders: - rosuvastatin (CRESTOR) 40 mg tablet; Take 1 tablet (40 mg total) by mouth daily - Lipid panel; Future Hyperglycemia (R73.9) Assessment & Plan: Check labs Stage 3a chronic kidney disease (HCC) (N18.31) Assessment & Plan: Avoid nephrotoxic drugs including NSAIDs. Monitor labs. Orders: - Comprehensive metabolic panel; Future Fatigue, unspecified type (R53.83) Assessment & Plan: Probably multifactorial. Check labs and followup to re-evaluate Orders: - CBC with auto differential; Future - TSH; Future - Vitamin B12; Future Moderate episode of recurrent major depressive disorder (HCC) (F33.1) Assessment & Plan: Patient states symptoms are much more stable with Trintellix 10 and Wellbutrin XL 300. She tapered the Prozac without difficulty. Using Klonopin mostly HS for help with restless leg. She is happy with this combination will continue to monitor. Refills available at pharmacy. Anxiety (F41.9) Assessment & Plan: Patient states symptoms are much more stable with Trintellix 10 and Wellbutrin XL 300. She tapered the Prozac without difficulty. Using Klonopin mostly HS for help with restless leg. She is happy with this combination will continue to monitor. Refills available at pharmacy. Follow-up in 3-4 months for wellness exam and follow-up depression anxiety symptoms BMI 25.0-25.9,adult (Z68.25) Assessment & Plan: Weight/BMI is in healthy range. Continue healthy lifestyle to maintain. Other orders - vortioxetine (TRINTELLIX) 10 mg tablet; Take 1 tablet (10 mg total) by mouth daily *This note is dictated using Wurl voice recognition software, variances in spelling and vocabulary are possible and unintentional.* Gabi Victoria PA-C MACHINE KEY PERSON documented in this encounter Miscellaneous Notes * Result Encounter Note - Lea Cheng - 01/25/2024 9:25 AM CDT Letter with lab results sent. * Assessment & Plan Note - Gabi Victoria PA - 09/25/2023 12:59 PM SLOT MACHINE KEY PERSON Associated Problem(s): Hyperglycemia Check labs MACHINE KEY PERSON * Assessment & Plan Note - Gabi Victoria PA - 09/25/2023 12:59 PM SLOT MACHINE KEY PERSON Associated Problem(s): Fatigue (Resolved 09/07/2024) Probably multifactorial. Check labs and followup to re-evaluate MACHINE KEY PERSON * Assessment & Plan Note - Gabi Victoria PA - 09/25/2023 12:59 PM SLOT MACHINE KEY PERSON Associated Problem(s): Coronary artery calcification seen on CT scan LDCT done 12/2019 showed moderate to severe amount of coronary calcifications. Referred to Cardio Dr. Hwang 11/2020 Crestor increased to 40mg to get LDL below 70 [id number] started Stress ECHO appears normal. MACHINE KEY PERSON * Assessment & Plan Note - Gabi Victoria PA - 09/25/2023 12:59 PM SLOT MACHINE KEY PERSON Associated Problem(s): Stage 3a chronic kidney disease (HCC) Avoid nephrotoxic drugs including NSAIDs. Monitor labs. MACHINE KEY PERSON * Assessment & Plan Note - Gabi Victoria PA - 09/25/2023 12:59 PM SLOT MACHINE KEY PERSON Associated Problem(s): Mixed hyperlipidemia Encouraged patient to follow low fat/low chol diet like the Mediterranean diet. Increase good fats in the diet. Increase exercise. Monitor labs as needed. Continue Crestor 40 MACHINE KEY PERSON * Assessment & Plan Note - Gabi Victoria PA - 09/25/2023 12:58 PM SLOT MACHINE KEY PERSON Associated Problem(s): Moderate episode of recurrent major depressive disorder (HCC) Patient states symptoms are much more stable with Trintellix 10 and Wellbutrin XL 300. She tapered the Prozac without difficulty. Using Klonopin mostly HS for help with restless leg. She is happy with this combination will continue to monitor. Refills available at pharmacy. MACHINE KEY PERSON * Assessment & Plan Note - Gabi Victoria PA - 09/25/2023 12:58 PM SLOT MACHINE KEY PERSON Associated Problem(s): Anxiety Patient states symptoms are much more stable with Trintellix 10 and Wellbutrin XL 300. She tapered the Prozac without difficulty. Using Klonopin mostly HS for help with restless leg. She is happy with this combination will continue to monitor. Refills available at pharmacy. Follow-up in 3-4 months for wellness exam and follow-up depression anxiety symptoms MACHINE KEY PERSON * Assessment & Plan Note - Jacqui Marcus MA - 09/25/2023 11:09 AM SLOT MACHINE KEY PERSON Associated Problem(s): BMI 25.0-25.9,adult (Resolved 03/03/2024) Weight/BMI is in healthy range. Continue healthy lifestyle to maintain. MACHINE KEY PERSON documented in this encounter Plan of Treatment Not on file documented as of this encounter Procedures Procedure Name Priority Date/Time Associated Diagnosis Comments CBC WITH AUTO DIFFERENTIAL Routine 01/15/2024 9:03 AM SLOT MACHINE KEY PERSON Fatigue, unspecified type TSH Routine 01/15/2024 9:03 AM SLOT MACHINE KEY PERSON Fatigue, unspecified type VITAMIN B12 Routine 01/15/2024 9:03 AM SLOT MACHINE KEY PERSON Fatigue, unspecified type LIPID PANEL Routine 01/15/2024 9:03 AM SLOT MACHINE KEY PERSON Mixed hyperlipidemia COMPREHENSIVE METABOLIC PANEL Routine 01/15/2024 9:03 AM SLOT MACHINE KEY PERSON Stage 3a chronic kidney disease (HCC) documented in this encounter Results * (ABNORMAL) Vitamin B12 (01/15/2024 9:03 AM SLOT MACHINE KEY PERSON) Vitamin B12 >2000(H) 200 - 1100 pg/mL [facility] Blood 01/15/2024 9:03 AM SLOT MACHINE KEY PERSON 01/15/2024 9:03 AM SLOT MACHINE KEY PERSON Narrative [facility] - 01/16/2024 4:31 AM SLOT MACHINE KEY PERSON FASTING:YES FASTING: YES Gabi DURÁN LAB BLOOD ORDERABLES Final Result [email or web address] [address] [facility] [place] [address] * TSH (01/15/2024 9:03 AM SLOT MACHINE KEY PERSON) TSH 1.64 0.40 - 4.50 mIU/L [email or web address] Blood 01/15/2024 9:03 AM SLOT MACHINE KEY PERSON 01/15/2024 9:03 AM SLOT MACHINE KEY PERSON Narrative [facility] - 01/16/2024 4:31 AM SLOT MACHINE KEY PERSON FASTING:YES FASTING: YES Gabi DURÁN LAB BLOOD ORDERABLES Final Result [facility] [address] [place] [address] * Lipid panel (01/15/2024 9:03 AM SLOT MACHINE KEY PERSON) Cholesterol 178 <200 mg/dL [email or web address] HDL 66 > OR = 50 mg/dL [facility] Joseph Triglycerides 106 <150 mg/dL [facility] LDL 92 mg/dL (calc) [email or web address] Comment: Reference range: <100 Desirable range <100 mg/dL for primary prevention; ?? <70 mg/dL for patients with CHD or diabetic patients with > or = 2 CHD risk factors. LDL-C is now calculated using the Nazario calculation, which is a validated novel method providing better accuracy than the Friedewald equation in the estimation of LDL-C. Curt DAI et al. NESS. 2013;310(19): 5205-7556 (http://education.Llesiant.[employer]/faq/SJE765) Chol/HDL ratio 2.7 <5.0 (calc) [facility] Joseph Non-HDL, (LDL+VLDL) 112 <130 mg/dL (calc) [email or web address] Comment: For patients with diabetes plus 1 major ASCVD risk factor, treating to a non-HDL-C goal of <100 mg/dL (LDL-C of <70 mg/dL) is considered a therapeutic option. Blood 01/15/2024 9:03 AM SLOT MACHINE KEY PERSON 01/15/2024 9:03 AM SLOT MACHINE KEY PERSON Narrative [facility] - 01/16/2024 4:31 AM SLOT MACHINE KEY PERSON FASTING:YES FASTING: YES Gabi DURÁN LAB BLOOD ORDERABLES Final Result ALFREDO Alfredo [facility] [address] [place] [address] * (ABNORMAL) Comprehensive metabolic panel (01/15/2024 9:03 AM SLOT MACHINE KEY PERSON) Pathologist [facility] Glucose 84 65 - 99 mg/dL [facility] [employer] Joseph Comment: ? Fasting reference interval BUN 20 7 - 25 mg/dL [facility] [employer] robson Joseph Creatinine 1.22(H) 0.60 - 1.00 mg/dL [facility] [employer] Joseph eGFR 47(L) > OR = 60 mL/min/1.7 3m2 [facility] [employer] Joseph BUN/creat ratio 16 6 - 22 (calc) Alfredo [facility] Ruiz Sodium 141 135 - 146 mmol/L [email or web address] Joseph Potassium, pl 4.0 3.5 - 5.3 mmol/L [facility] Joseph Chloride 107 98 - 110 mmol/L [facility] CO2 27 20 - 32 mmol/L [facility] Joseph Calcium 9.6 8.6 - 10.4 mg/dL [facility] Joseph Protein, sr 6.6 6.1 - 8.1 g/dL [facility] Joseph Albumin 4.4 3.6 - 5.1 g/dL [facility] Joseph GLOBULIN 2.2 1.9 - 3.7 g/dL (calc) [email or web address] Joseph Alb/glob ratio 2.0 1.0 - 2.5 (calc) [facility] Joseph Bilirubin, total 0.4 0.2 - 1.2 mg/dL [facility] Alk phos 83 37 - 153 U/L [facility] AST 15 10 - 35 U/L [facility] ALT (SGPT) 14 6 - 29 U/L [facility] Blood 01/15/2024 9:03 AM SLOT MACHINE KEY PERSON 01/15/2024 9:03 AM SLOT MACHINE KEY PERSON Narrative [facility] - 01/16/2024 4:31 AM SLOT MACHINE KEY PERSON FASTING:YES FASTING: YES us Gabi DURÁN LAB BLOOD ORDERABLES Final Result [email or web address] [address] [place] [address] * CBC with auto differential (01/15/2024 9:03 AM SLOT MACHINE KEY PERSON) WBC 5.8 3.8 - 10.8 Thousand/u L [facility] RBC, POC 4.56 3.80 - 5.10 Million/uL [facility] Hgb 14.3 11.7 - 15.5 g/dL [facility] Hct 43.5 35.0 - 45.0 % [facility] MCV 95.4 80.0 - 100.0 fL [facility] MCH 31.4 27.0 - 33.0 pg [facility] MCHC 32.9 32.0 - 36.0 g/dL [facility] Rdw 11.8 11.0 - 15.0 % [facility] Platelets 237 140 - 400 Thousand/u L [facility] MPV 11.0 7.5 - 12.5 fL [facility] Neutrophils, abs 3,329 1,500 - 7,800 cells/uL [facility] Lymphocytes, abs 1,694 850 - 3,900 cells/uL [facility] Monocyte abs 615 200 - 950 cells/uL [facility] Eosinophils, abs 110 15 - 500 cells/uL [facility] Basophils, abs 52 0 - 200 cells/uL [facility] Neutrophils 57.4 % [facility] Lymphocyte pct 29.2 % [facility] Monocytes 10.6 % [facility] Eosinophils 1.9 % [facility] Basophils 0.9 % [facility] Blood 01/15/2024 9:03 AM SLOT MACHINE KEY PERSON 01/15/2024 9:03 AM SLOT MACHINE KEY PERSON Narrative [facility] - 01/16/2024 4:31 AM SLOT MACHINE KEY PERSON FASTING:YES FASTING: YES Gabi DURÁN LAB BLOOD ORDERABLES Final Result ALFREDO [facility] [address] [place] [address] documented in this encounter Visit Diagnoses Diagnosis Coronary artery calcification seen on CT scan- Primary Mixed hyperlipidemia Hyperglycemia Other abnormal glucose Stage 3a chronic kidney disease (HCC) Fatigue, unspecified type Moderate episode of recurrent major depressive disorder (HCC) Anxiety Anxiety state, unspecified BMI 25.0-25.9,adult documented in this encounter Discontinued Medications Medication Sig Discontinue Reason Start Date End Da te rosuvastatin (CRESTOR) 40 mg tabletIndications:Coronary artery calcification seen on CT scan,Mixed hyperlipidemia Take 1 tablet (40 mg total) by mouth daily Reorder 07/05/2023 09/25/2023 vortioxetine (TRINTELLIX) 10 mg tabletIndications:major depressive disorder Take 1 tablet (10 mg total) by mouth daily Taper Prozac as instructed. Reorder 08/16/2023 09/25/2023 documented as of this encounter Historical Medications * This list may reflect changes made after this encounter. tamsulosin (FLOMAX) 0.4 mg extended release capsule TAKE 1 CAPSULE BY MOUTH DAILY. CONTINUE UNTIL STONE HAS PASSED 08/22/2023 added in this encounter Care Teams Surgical Orderly Relationship Specialty Start Date End Date Gabi Victoria PA [address] [facility] [address] [place] [address] PCP - General Internal Medicine 02/19/19 documented as of this encounter
--- OUTSIDE RECORDS SUMMARY | 2024-11-08 13:59 | XMS_ITS | Encounter Summary ---
Author Organization [facility] Address [address] [place] [address] Care Team Providers Care Ground Surveillance Systems Operator Name Role Phone Gabi Victoria Primary Care Provider +1- [phone] Reason for Visit * Reason Comments Annual Exam Encounter Details Date Type Department Care Team (Late st Contact Info) Description 07/05/2023 9:30 AM CDT Office Visit [facility] Cardiology [address] [place] [address] Gilda Beach NP [address] [place] [address] Coronary artery calcification seen on CT scan; Mixed hyperlipidemia; Tingling in extremities Social History Tobacco Use Types Packs/Day Years Used Date Smoking Tobacco: Former Cigarettes Q uit: 04/09/2020 Vaping Smokeless Tobacco: Never Alcohol Use Standard Drinks/Week Comments Yes 0 (1 standard drink = 0.6 oz pur e alcohol) Rarely AUDIT-C Answer Date Recorded Q1: How often do you have a drink containing alc ohol? Monthly or less 04/02/2023 Q2: How many drinks containi ng alcohol do you have on a typical day when you are drinking? 1 or 2 04/02/2023 Q3: How often do you have si x or more drinks on one occasion? 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 Gender Identity Not on file Sexual Orientation Not on file Occupation Industry Job Start Date Job End Date Retired Not on file Not on file Not on file documented as of this encounter Last Filed Vital Signs Vital Sign Reading Time Taken Comments Blood Pressure 108/66 07/05/2023 9:42 AM CDT Pulse 77 07/05/2023 9:42 AM CDT Temperature - - Respiratory Rate - - Oxygen Saturation 97% 07/05/2023 9:42 AM CDT Inhaled Oxygen Concentration - - Weight 61.2 kg (135 lb) 07/05/2023 9:42 AM CDT Height 157.5 cm (5' 2 ) 07/05/2023 9:42 AM CDT Body Mass Index 24.69 07/05/2023 9:42 AM CDT documented in this encounter Ordered Prescriptions Prescription Sig Dispense Quantity Refills Last Filled Start Date End Date rosuvastatin (CRESTOR) 40 mg tabletIndications:Co ronary artery calcification seen on CT scan,Mixed hyperlipidemia Take 1 tablet (40 mg total) by mouth daily 90 tablet 3 07/05/2023 3 documented in this encounter Progress Notes * Gilda Beach NP - 07/05/2023 9:30 AM CDT Images from the original note were not included. [facility] Cardiology [address] [place] [address] Date of Visit: 07/05/2023 Patient ID: Ani Ortiz 1950 Chief Complaint Patient presents with Annual Exam Ani Ortiz is a 73 y.o. female who is an established patient of Dr. Lee with coronary artery calcification coming to the office for annual follow-up. History of Present Illness: Ani Ortiz is a 73 y.o. female with coronary artery calcification. Patient has a history of current smoking, depression, and anxiety. 11/24/2020 Initial Office Consultation with Rosa: Coronary artery calcification was incidentally noted on a chest CT scan. No h/o heart disease. Taking Crestor currently 20 mg daily for 20 years.Walks regularly outside, 10,000 steps/day in [facility]. No trouble walking up steps. No chest/arm/shoulder/back/neck pain/pressure/contriction. Resumed smoking 1979. Quit smoking 48 y.o. and started vapping, resumed smoking for a year recently. No HTN or DM. Added aspirin, increased rosuvastatin, ordered a stress echo. 02/25/2021 OV with DECORATING INSTRUCTOR C Baylee: She returns for follow-up after stress echo and labs. She had no perceived problems with the increased dose of rosuvastatin. She states aspirin hurts her stomach, she gets a burning sensation after taking it, it is tolerable when she takes a coated aspirin and takes it with food. She remain smoke-free at this point in time. She is bothered by snoring, sometimes wakes herself, has never been told by anyone that they have observed apnea, feels rested during the dayand does not need to take naps. 02/27/[address] Lee: Doing OK, but recent bronchitis tx'd w/ antibiotic stephaniemarina frey Has a chronic aggravating cough. Remains a nonsmoker. No chest pain, JEFFERY, dizziness, palpitations, or edema. Walks dog Pretty daily for 20 min. Left arm hurts sometimes but had rotator cuff surgery. Has heartburn when she lies down. Getting CT scan soon, March 13.. Eating healthy. Stress echo, CT scans reviewed. Recent CT scan 2020 showed a new cardiac finding. Lipids and labs reviewed. GFR 49 from 01/2022. 07/05/2023 OV with DECORATING INSTRUCTOR C Baylee: She is here for annual follow-up. She has no episodes of chest discomfort. She remains active swimming, doing weight training and walking her dog. She does get JEFFERY at the top of the stairs which was resolved quickly and she can not really say this is any worse than last year. Does occasionally she gets a tingling sensation in her calves when she is standing and she feels like her knees will give out in that she gets presyncopal. He is currently dealing with kidneystones. 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 Quit in smoking in 2019. , 2 daughters 1 son. Lives with her mother and her Great Pyrenngiovana Pretty. Records that I personally reviewed on the day of this visit include: (the interpretation is outlined in the HPI above) 02/28/[address] Uppstrom, subsequent telephone notes in [facility], 04/20/[address] report, 05/21/2023 lipid panel result. I have also reviewed: allergies, current medications, past family history, past medical history, past social history, past surgical history and problem list. Medical History: Past Medical History: Diagnosis Date [...] Social History Tobacco Use Smoking Status Former Packs/day: 0 Types: Cigarettes, Vaping Quit date: 04/09/2020 Years since quittin.2 Smokeless Tobacco Never Social History Tobacco Use Smoking status: Former Packs/day: 0 Types: Cigarettes, Vaping Quit date: 04/09/2020 Years since quittin.2 Smokeless tobacco: Never Substance and Sexual Activity Drug use: Never Sexual activity: Not Currently Partners: Female control/protection: I.U.D. Alcohol Use: Not At Risk (04/02/2023) AUDIT-C Frequency of Alcohol Consumption: Monthly or less Average Number of Drinks: 1 or 2 Frequency of Binge Drinking: Less than monthly Family History Problem Relation Age of Onset Hyperlipidemia Mother Other (Cancer, gioblastoma) Father Cancer Father Review of Systems Constitutional: Negative for malaise/fatigue, weight gain and weight loss. Cardiovascular: Positive for dyspnea on exertion. Negative for chest pain, claudication, leg swelling, near-syncope, orthopnea, palpitations, paroxysmal nocturnal dyspnea and syncope. Respiratory: Negative for cough, shortness of breath and sleep disturbances due to breathing. Hematologic/Lymphatic: Negative for bleeding problem. Does not bruise/bleed easily. Neurological: Negative for dizziness and light-headedness. Vital Signs: BP 108/66 (BP Location: Right arm, Patient Position: Sitting) Pulse 77 Ht 157.5 cm (5' 2 ) Wt61.2 kg (135 lb) SpO2 97% BMI 24.69 kg/m?? Physical Exam Constitutional: General: She is not in acute distress. Appearance: She is well-developed. HENT: Head: Normocephalic and atraumatic. Eyes: General: No scleral icterus. Conjunctiva/sclera: Conjunctivae normal. Neck: Vascular: No JVD. Trachea: No tracheal deviation. Cardiovascular: Rate and Rhythm: Normal rate and regular rhythm. Pulses: Dorsalis pedis pulses are 1+ on the right side and 1+ on the left side. Posterior tibial pulses are 1+ on the right side and 1+ on the left side. Heart sounds: Normal heart sounds. No murmur [...] Shellfish Unknown Erythromycin Vomiting Current Outpatient Medications: albuterol HFA (ProAir HFA) [...] MG) BY MOUTH THREE TIMES DAILY, Disp: 270 tablet,Rfl: 1 clonazePAM (KlonoPIN) 1 mg tablet, Take 1 tablet (1 mg total) by mouth every 8 (eight) hours as needed for anxiety, Disp: 30 tablet, Rfl: 0 cranberry 400 mg capsule, Take by mouth, Disp: , Rfl: cyanocobalamin (Vitamin B-12) 100 mcg tablet, Take 1 tablet (100 mcg total) by mouth daily, Disp: ,Rfl: FLUoxetine (PROzac) 20 mg capsule, TAKE 1 CAPSULE(20 MG) BY MOUTH DAILY, Disp: 90 capsule, Rfl: 1 FLUoxetine (PROzac) 40 mg capsule, TAKE 1 CAPSULE(40 MG) BY MOUTH DAILY, Disp: 90 capsule, Rfl: 2 fluticasone propionate (FLONASE) 50 mcg/actuation nasal spray, SHAKE LIQUID AND USE 2 SPRAYS IN EACH NOSTRIL DAILY, Disp: 48 g, Rfl: 1 valACYclovir (VALTREX) 1 gram tablet, Take TWO tabs po at onset of cold sore. Take TWO tabs po 12 hours later., Disp: 20 tablet, Rfl: 0 vit D3-vit R-qrrbingfx-wxud [id number] mffm-tjg-kt-mg tablet, Take 50 mcg by mouth, Disp: , Rfl: zolpidem (AMBIEN) 5 mg tablet, Take 1 tablet (5 mg total) by mouth nightly as needed for sleep, Disp: 90 tablet, Rfl: 0 rosuvastatin (CRESTOR) 40 mg tablet, Take 1 tablet (40 mg total) by mouth daily, Disp: 90 tablet, Rfl: 3 Lab Results Component Value Date POTASSIUM 4.4 05/21/2023 BUNSER 15 05/21/2023 CREATININE 1.28 (H) 05/21/2023 CHOL 134 05/21/2023 TRIG 96 05/21/2023 LDL 56 05/21/2023 HDL 60 05/21/2023 Lab Results Component Value Date WBC 5.4 05/21/2023 HGB 13.6 05/21/2023 HCT 41.4 05/21/2023 MCV 93.2 05/21/2023 No results found for this or any previous visit (from the past 4 hour(s)). No results found for: POCCHOL , POCHDL , POCTRIG , POCLDL , POCNONHDL , POCCHLPL Assessment: Diagnoses and all orders for this visit: Coronary artery calcification seen on CT scan - rosuvastatin (CRESTOR) 40 mg tablet; Take 1 tablet (40 mg total) by mouth daily Mixed hyperlipidemia - rosuvastatin (CRESTOR) 40 mg tablet; Take 1 tablet (40 mg total) by mouth daily Tingling in extremities Plan/Recommendations: She has coronary artery calcification and we are treating her for presumed coronary artery disease.Her annual chest CT still showed the subendocardial fat deposit on the heart suggestive of a previous FL and this is unchanged. She remains physically active without symptoms concerning for angina. Ireviewed signs/symptoms of angina with her so she would recognize this if it occurred and I told her when it is appropriate to call an ambulance and when it is appropriate to call the office. Lipids were checked last month and are controlled. I encouraged her continue her regular exercise and continue rosuvastatin. Continue aspirin 81 mg daily as well. She feels a tingling sensation intermittently in her calves when she is standing but she has other symptoms like this sound like it is orthostatic hypotension. On exam she has no findings suspicious for significant peripheral arterial disease. I advised her to avoid prolonged standing if possible and I also gave her tips on doing calf pumps or knee bends when she has to stand for longer periods of time. Return to the office to see Dr. Lee in 12 months. Call us sooner with questions or concerns. 07/05/2023 KENDRA Knutson- Nurse Practitioner with [facility] Cardiology This note is dictated and transcribed using [employer] Software. Electric Lineman variancesmay occur. Despite proofreading, typographical errors may occur. documented in this encounter Plan of Treatment Not on file documented as of this encounter Visit Diagnoses Diagnosis Coronary artery calcification seen on CT scan Mixed hyperlipidemia Tingling in extremities documented in this encounter Discontinued Medications Medication Sig Discontinue Reason Start Date End Da te rosuvastatin (CRESTOR) 40 mg tabletIndications:Coronary artery calcification seen on CT scan,Mixed hyperlipidemia TAKE 1 TABLET(40 MG) BY MOUTH DAILY Reorder 12/07/2022 07/05/2023 documented as of this encounter Care Teams Ground Surveillance Systems Operator Relationship Specialty Start Date End Date Gabi Victoria PA [address] [place] [address] PCP - General Internal Medicine 02/19/19 documented as of this encounter
--- OUTSIDE RECORDS SUMMARY | 2024-11-08 13:59 | XMS_ITS | Encounter Summary ---
Author Organization [facility] Address [address] [place] [address] Care Team Providers Care Community Coordinator Name Role Phone Gabi Victoria Primary Care Provider +1- [phone] Reason for Visit * Reason Onset Date Comments Test Results 06/08/2023 Encounter Details Date Type Department Care Team (Late st Contact Info) Description 06/08/2023 Telephone [facility] Family Medicine [address] [place] [address] Gabi Victoria PA [address] [place] [address] Test Results Social History Tobacco Use Types Packs/Day Years [...] on file 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 Yes Where were results relayed from in the chart? Labs Tab Caller's Callback #: [phone] Additional Questions/Comments: n/a Does message need to be routed?Yes-FYI Only documented in this encounter Plan of Treatment Not on file documented as of this encounter Visit Diagnoses Not on filedocumented in this encounter Care Teams Community Coordinator Relationship Specialty Start Date End Date Gabi Victoria PA [address] [facility] [address] [place] [address] PCP - General Internal Medicine 02/19/19 documented as of this encounter
--- OUTSIDE RECORDS SUMMARY | 2024-11-08 13:59 | XMS_ITS | Encounter Summary ---
Author Organization [facility] Address [address] [place] [address] Care Team Providers Care Diabetes Manager Name Role Phone Gabi Victoria Primary Care Provider +1- [phone] Encounter Details Date Type Department Care Team (Late st Contact Info) Description 06/18/2023 Orders Only [facility] Health Information Management [address] [place] [address] Scanning, Provider Social History Tobacco Use Types [...] on file Legal Sex Female 12:08 AM PAIN COORDINATOR Gender Identity Not on file Sexual Orientation Not on file Occupation Industry Job Start Date Job End Date Retired Not on file Not on file Not on file documented as of this encounter Plan of Treatment Not on file documented as of this encounter Procedures Procedure Name Priority Date/Time Associated Diagnosis Comments SCAN - RADIOLOGY/IMAGING 06/18/2023 documented in this encounter Results * SCAN - RADIOLOGY/IMAGING (06/18/2023) Anatomical Region Laterality Modality Other us Provider Scanning Final Result documented in this encounter Visit Diagnoses Not on filedocumented in this encounter Care Teams Diabetes Manager Relationship Specialty Start Date End Date Gabi Victoria PA [address] [place] [address] PCP - General Internal Medicine 02/19/19 documented as of this encounter
--- OUTSIDE RECORDS SUMMARY | 2024-11-08 13:59 | XMS_ITS | Encounter Summary ---
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 Gender Identity Not on file Sexual Orientation Not on file Occupation Industry Job Start Date Job End Date Retired Not on file Not on file Not on file documented as of this encounter Plan of Treatment Not on file documented as of this encounter Procedures Procedure Name Priority Date/Time Associated Diagnosis Comments SCAN - RADIOLOGY/IMAGING 08/21/2023 documented in this encounter Results * SCAN - RADIOLOGY/IMAGING (08/21/2023) Anatomical Region Laterality Modality Other us Provider Scanning Edited Result - Final documented in this encounter Visit Diagnoses Not on filedocumented in this encounter Care Teams Assistant Site Manager Relationship Specialty Start Date End Date Gabi Victoria PA [address] [facility] [address] [place] [address] PCP - General Internal Medicine 02/19/19 documented as of this encounter
--- OUTSIDE RECORDS SUMMARY | 2024-11-08 13:59 | XMS_ITS | Encounter Summary ---
Author Organization [facility] Healthcare Address [address] [place] [address] Care Team Providers Care Nuclear Power Plant Engineer Name Role Phone Gabi Victoria Primary Care Provider +1- [phone] Encounter Details Date Type Department Care Team ([facility] st Contact Info) Description 09/17/2023 Telephone [facility] Cardiology [address] [place] [address] Gilda Beach NP [address] [place], [place] [id number] Social History Tobacco Use Types Packs/Day Years [...] on file Legal Sex Female 12:08 AM HEALTH PLAN MANAGER Gender Identity Not on file Sexual Orientation Not on file Occupation Industry Job Start Date Job End Date Retired Not on file Not on file Not on file documented as of this encounter Miscellaneous Notes * Telephone Encounter - Gilda Beach NP - 09/17/2023 8:38 AM HEALTH PLAN MANAGER I agree with the recommendations you gave her and I don't have anything else to add. Thank you Beatriz. TH PLAN MANAGER * Telephone Encounter - Beatriz Combs RN - 09/17/2023 7:49 AM CST My chart message communication in case you would like to add anything Ani, I am sorry to hear you are not feeling well. Make sure you stay hydrated and get plenty of rest. I would also recommend letting your PCP know if you have not already done so. Beatriz RN, BSN ===View-only below this line=== ----- Message ----- From:Ani Ortiz Sent:09/17/2023 7:34 AM HEALTH PLAN MANAGER To:Gilda Beach Subject:Covid I have it TH PLAN MANAGER documented in this encounter Plan of Treatment Not on file documented as of this encounter Visit Diagnoses Not on filedocumented in this encounter Care Teams Nuclear Power Plant Engineer Relationship Specialty Start Date End Date Gabi Victoria PA [address] [place] [address] PCP - General Internal Medicine 02/19/19 documented as of this encounter
--- OUTSIDE RECORDS SUMMARY | 2024-11-08 13:59 | XMS_ITS | Encounter Summary ---
Author Organization [facility] Healthcare Address [address] [place] [address] Care Team Providers Care Rn Dialysis Name Role Phone Gabi Victoria Primary Care Provider +1- [phone] Reason for Visit * Reason Onset Date Comments Covid 09/17/2023 Encounter Details Date Type Department Care Team (Late st Contact Info) Description 09/17/[address] [facility] Family Medicine [address] [place] [address] Gabi Victoria PA [address] [place] [address] Social History Tobacco Use Types [...] on file Legal Sex Female 12:08 AM SECTION CHIEF Gender Identity Not on file Sexual Orientation Not on file Occupation Industry Job Start Date Job End Date Retired Not on file Not on file Not on file documented as of this encounter Miscellaneous Notes * Telephone Encounter - Gabi Victoria PA - 09/20/2023 1:50 PM SECTION CHIEF Noted. Thanks. ION CHIEF * Telephone Encounter - Yeimi Cordoba LPN - 09/20/2023 11:24 AM SECTION CHIEF Pt responded on mychart I???m doing better just feels like I have a really bad cold treating the symptoms l think the cough will hang on for a I have an appointment on Sunday I have no way of knowing if I am still contagious or not do you want me to reschedule that appointment . Educated pt that if she wears a mask then she is ok for her appt as it will be 10 days post start of symptoms. ION CHIEF * Telephone Encounter - Yeimi Cordoba LPN - 09/20/2023 10:57 AM SECTION CHIEF Called and LVM to check on pt and sent mychart message ION CHIEF * Telephone Encounter - Yeimi Cordoba LPN - 09/17/2023 11:40 AM SECTION CHIEF Called pt and checked on her. Pt stated the worst part of how she is feeling is the LANDRY. She has an as needed inhaler that she is utilizing and it is effective. Pt states she would just like the tessalon pearls to get the rest as she hasn't slept well in two days. Will check on pt in middle of the week. ION CHIEF * Telephone Encounter - Alberto Morris RN - 09/17/2023 10:37 AM SECTION CHIEF Patient with symptoms starting 09/15, Covid-19 positive on 09/16. Had severe headache yesterday that is no longer present today. Cough, mild chest pressure, reports she feels short of breath with activity but is relieved with rest, sp02 95%. Fever yesterday, no fever today. Sinus congestion present. Isolation duration discussed per CDC guidelines. Offered appt with [facility] to discuss covid treatment options-declines. Patient reports she does not feel sick enough to warrant antiviral drugs, hx stage 3 kidney disease, last GFR 45. Patient requesting tessalon perles be sent to pharmacy. Routed for any further recommendations/review as declines appt at this time. Patient to call if worsening. Reason for Disposition MILD difficulty breathing (e.g., minimal/no SOB at rest, SOB with walking, pulse <100) Protocols used: Coronavirus (COVID-19) Diagnosed or [id number] ION CHIEF * Telephone Encounter - Alberto Morris RN - 09/17/2023 10:26 AM SECTION CHIEF Regarding: covid positive, shortness of breath ----- Message from Melanie Painting MA sent at 09/17/2023 10:14 AM SECTION CHIEF ----- Symptom Based Call Chief Complaint(s): covid positive, shortness of breath Duration: symptoms since 09/15/23 What type of symptom(s) is the patient experiencing? Red Flag. Is the patient concerned they are experiencing a medical emergency requiring an ambulance? No Additional Comments: covid positive, shortness of breath, chest pain from cough, head/chest congestion, cough productive at times. Fever broke last night. Was at 100.6. tested positive today. Does message need to be routed? Yes-Action Needed ION CHIEF documented in this encounter Plan of Treatment Not on file documented as of this encounter Visit Diagnoses Not on filedocumented in this encounter Care Teams Rn Dialysis Relationship Specialty Start Date End Date Gabi Victoria PA [address] [facility] [address] [place] [address] PCP - General Internal Medicine 02/19/19 documented as of this encounter
--- OUTSIDE RECORDS SUMMARY | 2024-11-08 14:00 | XMS_ITS | Encounter Summary ---
Author Organization [facility] Address [address] [place] [address] Care Team Providers Care Mainspring Winder Name Role Phone Gabi Victroia Primary Care Provider +1- [phone] Encounter Details Date Type Department Care Team (Late st Contact Info) Description 09/05/2022 Orders Only [facility] Health Information Management [address] [place] [address] Scanning, Provider Social History Tobacco Use Types [...] on file Legal Sex Female 12:08 AM COP Gender Identity Not on file Sexual Orientation Not on file Occupation Industry Job Start Date Job End Date Retired Not on file Not on file Not on file documented as of this encounter Plan of Treatment Not on file documented as of this encounter Procedures Procedure Name Priority Date/Time Associated Diagnosis Comments SCAN - PATHOLOGY 09/05/2022 documented in this encounter Results * SCAN - PATHOLOGY (09/05/2022) us Provider Scanning Final Result documented in this encounter Visit Diagnoses Not on filedocumented in this encounter Care Teams Mainspring Winder Relationship Specialty Start Date End Date Gabi Victoria PA [address] [address] PCP - General Internal Medicine 02/19/19 documented as of this encounter
--- OUTSIDE RECORDS SUMMARY | 2024-11-08 14:00 | XMS_ITS | Encounter Summary ---
Author Organization [facility] Address [address] [place] [address] Care Team Providers Care Staff Assistant Name Role Phone Gabi Victoria Primary Care Provider +1- [phone] Reason for Visit * Reason Onset Date Comments Symptom Based Call 02/26/2023 Encounter Details Date Type Department Care Team ([facility] st Contact Info) Description 02/26/2023 Telephone [facility] Family Medicine [address] [place] [address] Gabi Victoria PA [address] [place] [address] Symptom Based Call Social History Tobacco Use Types Packs/Day Years Used Date Smoking Tobacco: Former Cigarettes Q uit: 04/09/2020 Vaping Smokeless Tobacco: Never Alcohol Use Standard Drinks/Week Comments Yes 0 (1 standard drink = 0.6 oz pur e alcohol) Rarely AUDIT-C Answer Date Recorded Q1: How often do you have a drink containing alc ohol? Monthly or less 08/23/2022 Q2: How many drinks containi ng alcohol do you have on a typical day when you are drinking? 1 or 2 08/23/2022 Q3: How often do you have si x or more drinks on one occasion? 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 Non-Emergent. Is this a new or reoccurring symptom(s)? New What have you tried to help your symptom(s)? no Why was appointment not scheduled? Requesting advice from clinical steam hand. Additional Comments: see patient message encounter from today regarding UTI. Patient dropped off urine specimen. Patient would like antibiotic sent to [facility]. Does message need to be routed?Yes-Action Needed documented in this encounter Plan of Treatment Not on file documented as of this encounter Visit Diagnoses Not on filedocumented in this encounter Care Teams Staff Assistant Relationship Specialty Start Date End Date Gabi Victoria PA [address] [place] [address] PCP - General Internal Medicine 02/19/19 documented as of this encounter
--- OUTSIDE RECORDS SUMMARY | 2024-11-08 14:00 | XMS_ITS | Encounter Summary ---
Author Organization [facility] Address [address] [place] [address] Care Team Providers Care Assisted Living Coordinator Name Role Phone Gabi Victoria Primary Care Provider +1- [phone] Reason for Referral * MRI/CAT/PET Scan (Routine) - Closed Specialty Diagnoses / Procedures Referred By Contac t Referred To Contact Diagnoses Former smoker Procedures CT Lung Cancer Screening Gabi Victoria PA [address] [address] Phone: tel: fax: Other External Hospital POS [address] [place] [address] Referral ID Status Reason Start Date Expiration Date Visits Re quested Visits Authorized [id number] Closed 02/24/2022 03/26/2023 1 1 Reason for Visit * Reason Comments Medicare Wellness Encounter Details Date Type Department Care Team (Late st Contact Info) Description 02/21/2022 10:45 AM CDT Office Visit [facility] Family Medicine [address] [place] [address] Gabi Victoria PA [address] [facility] [address] [place] [address] Medicare annual wellness visit, subsequent (Primary Dx); Anxiety; Former smoker; Mixed hyperlipidemia; Stage 3a chronic kidney disease (HCC); Moderate episode of recurrent major depressive disorder (HCC); Breast cancer screening by mammogram; BMI 25.0-25.9,adult Social History Tobacco Use Types Packs/Day Years Used Date Smoking Tobacco: Former Cigarettes Q uit: 04/09/2020 Vaping Smokeless Tobacco: Never Alcohol Use Standard Drinks/Week Comments Yes 0 (1 standard drink = 0.6 oz pur e alcohol) Rarely AUDIT-C Answer Date Recorded Q1: How often do you have a drink containing alc ohol? Monthly or less 02/21/2022 Q2: How many drinks containi ng alcohol do you have on a typical day when you are drinking? 1 or 2 02/21/2022 Q3: How often do you have si x or more drinks on one occasion? 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 Gender Identity Not on file Sexual Orientation Not on file Occupation Industry Job Start Date Job End Date Retired Not on file Not on file Not on file documented as of this encounter Last Filed Vital Signs Vital Sign Reading Time Taken Comments Blood Pressure 100/60 02/21/2022 11:33 AM CDT Pulse 67 02/21/2022 11:33 AM CDT Temperature 36.8 ??C (98.3 ??F) 02/21/2022 11:33 AM C DT Respiratory Rate - - Oxygen Saturation 95% 02/21/2022 11:33 AM CDT Inhaled Oxygen Concentration - - Weight 64.1 kg (141 lb 6.4 oz) 02/21/2022 11:33 AM CDT Height 157.5 cm (5' 2 ) 02/21/2022 11:33 AM CDT Body Mass Index 25.86 02/21/2022 11:33 AM CDT documented in this encounter Ordered Prescriptions Prescription Sig Dispense Quantity Refills Last Filled Start Date End Date clonazePAM (KlonoPIN) 1 mg tabletIndications: Anxiety Take 1 tablet (1 mg total) by mouth every 8 (eight) hours as needed for anxiety 30 tablet 02/23/2022 documented in this encounter Progress Notes * Gabi Victoria PA - 02/21/2022 10:45 AM CDT Images from the original note were not included. Subjective/Objective Patient ID: Ani Ortiz is a 71 y.o. female. Chief Complaint Medicare Wellness HPI Patient presents for MWE and followup chronic concerns. Depression - Prozac 60mg and Wellbutrn, buspar and klonipin. The increased dose did help. LDCT due to repeat after 01/20/2022 -- scheduled in the next month ?? Insomnia - Ambien Patient is aware of the warning related to this medication and her age but prefers to continue it despite the warnings. ?? Moderate to severe amount of coronary calcifications noted on LDCT done 12/2019. ??Referred to Cardio and Dr. Hwang added: ASA 81 Crestor increased to 40mg daily ?? Tension LANDRY and occasional allergy sxs. Responds to IBU -- ?? Pneumonia vaccines - UTD Colonoscopy - 05/2019--->2023 DXA - 09/2019-->09/2022 is scheduled Mamm - 09/2019 --- scheduled LDCT 01/20/2021 -->12/2021 FLU - UTD Review of Systems See HPI Vitals: 02/21/22 1133 BP: 100/60 BP Location: Left arm Patient Position: Sitting Pulse: 67 Temp: 36.8 ??C (98.3 ??F) TempSrc: Oral SpO2: 95% Weight: 64.1 kg (141 lb 6.4 oz) Height: 157.5 cm (5' 2 ) [...] Wellness Documentation is completed within the chart Anxiety (F41.9) Assessment & Plan: Patient responded today increased Prozac. Continue at 60 mg with the Wellbutrin BuSpar and Klonopinp.r.n. Orders: - clonazePAM (KlonoPIN) 1 mg tablet; Take 1 tablet (1 mg total) by mouth every 8 (eight) hours as needed for anxiety Former smoker (Z87.891) Assessment & Plan: Patient is due for low-dose CT. Will place order for [facility] Orders: - CT Lung Cancer Screening; Future Mixed hyperlipidemia (E78.2) Assessment & Plan: Encouraged patient to follow low fat/low chol diet like the Mediterranean diet. Increase good fats in the diet. Increase exercise. Monitor labs as needed. Continue Crestor Stage 3a chronic kidney disease (HCC) (N18.31) Assessment & Plan: Avoid nephrotoxic drugs including NSAIDs. Monitor labs. Moderate episode of recurrent major depressive disorder (HCC) (F33.1) Assessment & Plan: Improving with the increased dose of the Prozac to 60 mg. Continue Wellbutrin, BuSpar and Klonopin p.r.n. Breast cancer screening by mammogram (Z12.31) Assessment & Plan: Mammogram order provided BMI 25.0-25.9,adult (Z68.25) Assessment & Plan: Weight/BMI is in healthy range. Continue healthy lifestyle to maintain. MEDICARE ANNUAL WELLNESS VISIT Ani Ortiz Medicare Health Risk Assessment Basic Information In general, would you say your health is: Good Do you have an advance directive, such as a living will or durable power of insurance defense attorney?: Yes Do you have trouble hearing the television or radio when other do not?: Yes Do you have to strain or struggle to hear/understand conversations?: Yes Have you experienced any of the following problems currently or recently? Eating: No Grooming: No Bathing: No Walking: No Using the toilet: No Memory problems: No Difficulty speaking: No Have you experienced any of the following problems currently or recently? Laundry and/or housekeeping: No Handling Money: No Shopping: No Food preparation: No Transportation: No Taking and/or getting your own medications: No Problem List, Past Medical and Surgical History: Patient Active Problem List Diagnosis ??? Mixed hyperlipidemia ??? Anxiety ??? Tremor ??? History of colon polyps ??? Cold sore ??? Other insomnia ??? Chronic kidney disease (CKD), stage III (moderate) (HCC) ??? Cough ??? Osteopenia of left hip ??? Bilateral thumb pain ??? Moderate episode of recurrent major depressive disorder (HCC) ??? Coronary artery calcification seen on CT scan ??? Former smoker ??? RBBB ??? Medicare annual wellness visit, subsequent ??? Menopause ??? Breast cancer screening by mammogram ??? Viral URI ??? BMI 25.0-25.9,adult Past Medical History: Diagnosis Date ??? Allergic rhinitis ??? COPD (chronic obstructive pulmonary disease) (CMS/HCC) (HCC) ??? Coronary artery calcification ??? Depression Suicide attempt 1969 a ??? Hyperlipidemia ??? Kidney stones Past Surgical History: Procedure Laterality Date ??? CATARACT EXTRACTION 2014 ??? CHOLECYSTECTOMY 2014 ??? COLONOSCOPY 2016 ??? HYSTERECTOMY 1981 ??? RHINOPLASTY ??? SHOULDER SURGERY Left 2014 ??? TONSILLECTOMY 1971 Family History: Family History Problem Relation Age of Onset ??? Hyperlipidemia Mother ??? Other (Cancer, gioblastoma) Father Social History: Social History Socioeconomic History ??? Marital status: Spouse name: Not on file ??? Number of children: Not on file ??? Years of education: Not on file ??? Highest education level: Not on file Occupational History ??? Occupation: Retired Tobacco Use ??? Smoking status: Former Smoker Types: Cigarettes, Vaping Quit date: 04/09/2020 Years since quittin.8 ??? Smokeless tobacco: Never Used Substance and Sexual Activity ??? Alcohol use: Yes Comment: Rarely ??? Drug use: Never ??? Sexual activity: Not on file Other Topics Concern ??? Not on file Social History Narrative ??? Not on file Social Determinants of Health Financial Resource Strain: Not on file Food Insecurity: Not on file Transportation Needs: Not on file Physical Activity: Not on file Stress: Not on file Social Connections: Not on file Intimate Partner Violence: Not on file Housing Stability: Not on file Allergies: Allergies Allergen Reactions ??? Cephalexin Rash ??? Cephalosporins Rash ??? Penicillin V Potassium Rash ??? Shellfish Unknown ??? Erythromycin Vomiting Medications: Current Outpatient Medications: ??? albuterol HFA (ProAir HFA) 90 mcg/actuation inhaler, Inhale 2 puffs every 4 (four) hours as needed for wheezing or shortness of breath, Disp: 8.5 g, Rfl: 0 ??? aspirin 81 mg chewable tablet, Take 1 tablet (81 mg total) by mouth daily, Disp: 30 tablet, Rfl: 11 ??? benzonatate (TESSALON) 100 mg capsule, Take 1 capsule (100 mg total) by mouth 3 (three) times aday as needed for cough, Disp: 42 capsule, Rfl: 0 ??? buPROPion XL (WELLBUTRIN XL) 300 mg 24 hr tablet, TAKE 1 TABLET(300 MG) BY MOUTH EVERY MORNING,Disp: 90 tablet, Rfl: 1 ??? busPIRone (BUSPAR) 15 mg tablet, TAKE 1 TABLET(15 MG) BY MOUTH THREE TIMES DAILY, Disp: 270 tablet, Rfl: 1 ??? cranberry 400 mg capsule, Take by mouth, Disp: , Rfl: ??? cyanocobalamin (Vitamin B-12) 100 mcg tablet, Take 100 mcg by mouth daily, Disp: , Rfl: ??? FLUoxetine (PROzac) 20 mg capsule, TAKE 1 CAPSULE(20 MG) BY MOUTH DAILY, Disp: 90 capsule, Rfl:1 ??? FLUoxetine (PROzac) 40 mg capsule, Take 1 capsule (40 mg total) by mouth daily Patient is on 60mg so she will take 20mg plus 40mg, Disp: 90 capsule, Rfl: 2 ??? fluticasone propionate (FLONASE) 50 mcg/actuation nasal spray, SHAKE LIQUID AND USE 2 SPRAYS INEACH NOSTRIL DAILY, Disp: 48 g, Rfl: 1 ??? rosuvastatin (CRESTOR) 40 mg tablet, TAKE 1 TABLET(40 MG) BY MOUTH DAILY, Disp: 90 tablet, Rfl:0 ??? valACYclovir (VALTREX) 1 gram tablet, as needed , Disp: , Rfl: 1 ??? vit D3-vit G-dugfiqojj-wont [id number] [id number]-mg tablet, Take 50 mcg by mouth, Disp: ,Rfl: ??? zolpidem (AMBIEN) 10 mg tablet, TAKE 1 TABLET(10 MG) BY MOUTH EVERY NIGHT NEEDED FOR SLEEP, Disp: 90 tablet, Rfl: 0 ??? clonazePAM (KlonoPIN) 1 mg tablet, Take 1 tablet (1 mg total) by mouth every 8 (eight) hours asneeded for anxiety, Disp: 30 tablet, Rfl: 0 Depression Screen: PHQ Screening Over the last [...] points, staff should administer the PHQ-9): 0 Care Team Providers: Patient Care Team: Gabi Victoria PA as PCP - General (Internal Medicine) Primary Pharmacy/DME suppliers: [id number] [place], [place] - [address] [facility] [address] [facility] [id number] Detection of Cognitive Impairment: The patient does not have cognitive impairment based on direct observation, discussion with patientor family, or review of medical records. Health Maintenance: Health Maintenance Topics with due status: Overdue Topic Date Due Hepatitis C Screening Never done Breast Cancer Screening-Mammogram 09/30/2020 Covid-19 Vaccine 07/04/2021 Osteoporosis Screening-Bone Density Scan 09/30/2021 Lung Cancer Screening 01/20/2022 Health Maintenance Topics with due status: Not Due Topic Last Completion Date Colon Cancer Screening-Colonoscopy 06/02/2019 DTaP/Tdap/Td Vaccine 09/23/2020 Well Visit 65+ 07/19/2021 Fall Risk Assessment 02/21/2022 Depression Screening-PHQ 02/21/2022 Health Maintenance Topics with due status: Completed Topic Last Completion Date Pneumococcal vaccine 65+ 08/19/2020 Zoster Vaccines 09/23/2020 Influenza Vaccine 08/23/2021 Counseling and Referral of Preventative Services: Lifestyle Recommendations Increase Physical Activity, Stop Using Tobacco, Reduce Weight and ImproveDiet Advanced Directive Durable Power of Pocket Setter Lockstitch: Discussed Today Living Will: Discussed Today Patient here for annual Medicare wellness visit and for review of complete medical problem list. All the elements of the plan were completed as outlined by CMS. I reviewed Medicare Wellness Questionnaire (other physicians involved in care, depression screen, advanced directives), cognitive/memory, and functional assessment. I reviewed and updated the complete problem list, medication list, familyhistory, and immunization records with the patient. I provided preventive counseling and early detection interventions to the patient through health maintenance update and summary of today's office visit. *This note is dictated using [employer] medical voice recognition software, variances in spelling and vocabulary are possible and unintentional.* Gabi Victoria PA-C Cosigned by Herrera Sidhu MD at 02/25/2022 9:31 AM CDT documented in this encounter Miscellaneous Notes * Assessment & Plan Note - Gabi Victoria PA - 02/24/2022 10:40 PM CDT Associated Problem(s): Breast cancer screening by mammogram (Resolved 08/23/2022) Mammogram order provided * Assessment & Plan Note - Gabi Victoria PA - 02/24/2022 10:40 PM CDT Associated Problem(s): Medicare annual wellness visit, subsequent (Resolved 08/23/2022) Encouraged healthy lifestyle, good nutrition and exercise. Encouraged Calcium and Vitamin D and weight bearing exercise for bone health. Reviewed immunizations. Reviewed age appropirate screenings. Medicare Wellness Documentation is completed within the chart * Assessment & Plan Note - Gabi Victoria PA - 02/24/2022 10:40 PM CDT Associated Problem(s): Former smoker Patient is due for low-dose CT. Will place order for [facility] * Assessment & Plan Note - Gabi Victoria PA - 02/24/2022 10:40 PM CDT Associated Problem(s): Moderate episode of recurrent major depressive disorder (HCC) Improving with the increased dose of the Prozac to 60 mg. Continue Wellbutrin, BuSpar and Klonopinp.r.n. * Assessment & Plan Note - Gabi Victoria PA - 02/24/2022 10:39 PM CDT Associated Problem(s): Stage 3a chronic kidney disease (HCC) Avoid nephrotoxic drugs including NSAIDs. Monitor labs. * Assessment & Plan Note - Gabi Victoria PA - 02/24/2022 10:39 PM CDT Associated Problem(s): Anxiety Patient responded today increased Prozac. Continue at 60 mg with the Wellbutrin BuSpar and Klonopinp.r.n. * Assessment & Plan Note - Gabi Victoria PA - 02/24/2022 10:39 PM CDT Associated Problem(s): Mixed hyperlipidemia Encouraged patient to follow low fat/low chol diet like the Mediterranean diet. Increase good fats in the diet. Increase exercise. Monitor labs as needed. Continue Crestor * Assessment & Plan Note - Robi Castro MA - 02/21/2022 11:34 AM CDT Associated Problem(s): BMI 25.0-25.9,adult (Resolved 08/23/2022) Weight/BMI is in healthy range. Continue healthy lifestyle to maintain. documented in this encounter Plan of Treatment Not on file documented as of this encounter Results * CT Lung Cancer Screening (03/13/2022) Anatomical Region Laterality Modality Chest N/A Computed Tomogra phy us Gabi DURÁN IMG CT PROCEDURES Final Re sult documented in this encounter Visit Diagnoses Diagnosis Medicare annual wellness visit, subsequent- Primary Anxiety Anxiety state, unspecified Former smoker Personal history of tobacco use, presenting hazards to health Mixed hyperlipidemia Stage 3a chronic kidney disease (HCC) Moderate episode of recurrent major depressive disorder (HCC) Breast cancer screening by mammogram BMI 25.0-25.9,adult documented in this encounter Discontinued Medications Medication Sig Discontinue Reason Start Date End Da te clonazePAM (KlonoPIN) 1 mg tabletIndications:Anxiet y Take 1 tablet (1 mg total) by mouth every 8 (eight) hours as needed for anxiety Reorder 01/20/2022 02/21/2022 documented as of this encounter Care Teams Assisted Living Coordinator Relationship Specialty Start Date End Date Gabi Victoria PA [address] [facility] [address] [address] [place] [address] PCP - General Internal Medicine 02/19/19 documented as of this encounter
--- OUTSIDE RECORDS SUMMARY | 2024-11-08 14:00 | XMS_ITS | Encounter Summary ---
Author Organization 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 Gender Identity Not on file Sexual Orientation Not on file Occupation Industry Job Start Date Job End Date Retired Not on file Not on file Not on file documented as of this encounter Plan of Treatment Not on file documented as of this encounter Procedures Procedure Name Priority Date/Time Associated Diagnosis Comments SCAN - RADIOLOGY/IMAGING 05/23/2022 documented in this encounter Results * SCAN - RADIOLOGY/IMAGING (05/23/2022) Anatomical Region Laterality Modality Other us Provider Scanning Final Result documented in this encounter Visit Diagnoses Not on filedocumented in this encounter Care Teams Drier Relationship Specialty Start Date End Date Gabi Victoria PA [address] [place] [address] PCP - General Internal Medicine 02/19/19 documented as of this encounter
--- OUTSIDE RECORDS SUMMARY | 2024-11-08 14:00 | XMS_ITS | Encounter Summary ---
Author Organization [facility] Address [address] [place] [address] Care Team Providers Care Stretcher Drier Operator Name Role Phone Gabi Victoria Primary Care Provider +1- [phone] Reason for Visit * Reason Onset Date Comments Referral Request 04/16/2023 Encounter Details Date Type Department Care Team (Late st Contact Info) Description 04/16/2023 Telephone [facility] Family Medicine [address] [place] [address] Gabi Victoria PA [address] [place] [address] Referral Request Social History Tobacco Use Types Packs/Day [...] on file 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 Gender Identity Not on file Sexual Orientation Not on file Occupation Industry Job Start Date Job End Date Retired Not on file Not on file Not on file documented as of this encounter Miscellaneous Notes * Telephone Encounter - Yeimi Cordoba LPN - 04/16/2023 11:46 AM CDT Order printed and faxed * Telephone Encounter - Jocelynn Barahona - 04/16/2023 11:19 AM CDT Medical Question/Miscellaneous Caller???s Concern: Patient needs her CT Lung Cancer Screening ordered faxed to [facility] @ [phone] and their phone is [phone] Caller???s Call back #: [phone] Does message need to be routed? Yes-Action Needed documented in this encounter Plan of Treatment Not on file documented as of this encounter Visit Diagnoses Not on filedocumented in this encounter Care Teams Stretcher Drier Operator Relationship Specialty Start Date End Date Gabi Victoria PA [address] [facility] [address] [place] [address] PCP - General Internal Medicine 02/19/19 documented as of this encounter
--- OUTSIDE RECORDS SUMMARY | 2024-11-08 14:00 | XMS_ITS | Encounter Summary ---
Author Organization [facility] Address [address] [place] [address] Care Team Providers Care Reed Press Feeder Name Role Phone Gabi Victoria Primary Care Provider [phone]- [phone] Reason for Referral * Diagnostic Imaging (Routine) - Closed Specialty Diagnoses / Procedures Referred By Contac t Referred To Contact Procedures XR Abdomen Ap 1 Vw Osito Kimble MD [address] [place] [address] Phone: tel: Referral ID Status Reason Start Date Expiration Date Visits Re quested Visits Authorized [id number] Closed 04/14/2022 05/14/2023 1 1 Encounter Details Date Type Department Care Team (Late st Contact Info) Description 04/14/2022 Orders Only [facility] Family Medicine [address] [place] [address] Osito Kimble MD [address] [place] [address] Social History Tobacco Use Types Packs/Day Years [...] on file 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 Gender Identity Not on file Sexual Orientation Not on file Occupation Industry Job Start Date Job End Date Retired Not on file Not on file Not on file documented as of this encounter Plan of Treatment Not on file documented as of this encounter Procedures Procedure Name Priority Date/Time Associated Diagnosis Comments XR ABDOMEN AP 1 VIEW Schedule Routine, R ead Routine (OP Routine) 04/14/2022 documented in this encounter Results * XR Abdomen Ap 1 Vw (04/14/2022) Anatomical Region Laterality Modality Body, Abdomen N/A Radiographic Juanis ging Historical Provider MD TALBOT XR PROCEDURES Final R esult documented in this encounter Visit Diagnoses Not on filedocumented in this encounter Care Teams Reed Press Feeder Relationship Specialty Start Date End Date Gabi Victoria PA [address] [place] [address] PCP - General Internal Medicine 02/19/19 documented as of this encounter
--- OUTSIDE RECORDS SUMMARY | 2024-11-08 14:00 | XMS_ITS | Encounter Summary ---
Author Organization [facility] Address [address] [place] [address] Care Team Providers Care Flash Ranging Crewmember Name Role Phone Gabi Victoria Primary Care Provider +1- [phone] Encounter Details Date Type Department Care Team (Late st Contact Info) Description 01/30/2022 10:30 AM CDT Telemedicine [facility] Family Medicine [address] [place] [address] Gabi Victoria PA [address] [place] [address] Viral URI (Primary Dx) Social History Tobacco Use Types Packs/Day Years Used Date Smoking Tobacco: Former Cigarettes Q uit: 04/09/2020 Vaping Smokeless Tobacco: Never Alcohol Use Standard Drinks/Week Comments Yes 0 (1 standard drink = 0.6 oz pur e alcohol) Rarely AUDIT-C Answer Date Recorded Q1: How often do you have a drink containing alc ohol? Monthly or less 07/19/2021 Q2: How many drinks containi ng alcohol do you have on a typical day when you are drinking? 1 or 2 07/19/2021 Q3: How often do you have si x or more drinks on one occasion? 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 Subjective/Objective Patient ID: Ani Ortiz is a 71 y.o. female. Chief Complaint No chief complaint on file. This was a telemedicine visit with patient alone which took place via Telephone. During the visit, I was located in the [place] office and the patient was located at home in [place]. The patient visit started at 10:53a and ended at 11:04a. This reflects the time spent in medical discussion. The patient has been informed that the visit may not be secure and acknowledged the information. I have explained the option of participating in a telephone or video visit during the [facility] to the patient. After being given an opportunity to ask questions about and discuss this type of visit, the patient verbally consented to proceeding with the telephone/video visit.The patient understands that this service replaces an office visit and they may be billed and/or responsible for any applicable copayments. Cough This is a new problem. The current episode started yesterday. The problem has been rapidly worsening. The problem occurs every few minutes. The cough is productive of sputum. Associated symptoms include ear congestion, headaches, nasal congestion, postnasal drip, rhinorrhea, a sore throat, shortness of breath and wheezing. Pertinent negatives include no chest pain, chills, ear pain, fever, heartburn, hemoptysis, myalgias, sweats or weight loss. Nothing aggravates the symptoms. Risk factors for lung disease include smoking/tobacco exposure. 2-3 day history of cold sxs Stuffy nose/white/ thick No fever. Ears plugged Cough -- productive white. LANDRY No myalgia Using Mucinex DM Review of Systems Constitutional: Negative for chills, fever and weight loss. HENT: Positive for postnasal drip, rhinorrhea and sore throat. Negative for ear pain. Respiratory: Positive for cough, shortness of breath and wheezing. Negative for hemoptysis. Cardiovascular: Negative for chest pain. Gastrointestinal: Negative for heartburn. Musculoskeletal: Negative for myalgias. Neurological: Positive for headaches. See HPI There were no vitals filed for this visit. Physical Exam Neurological: Mental Status: She is alert and oriented to person, place, and time. Assessment/Plan Diagnoses and all orders for this visit: Viral URI (J06.9) (Primary) Assessment & Plan: Start antihistamine (Claritin OR Zyrtec), Mucinex 12hour and Steroid nasal spray (Flonase). Push fluids. Rest. Supportive care. If sxs worsen or don\'t improve, pt is to followup in the office. Other orders - fluticasone propionate (FLONASE) 50 mcg/actuation nasal spray; Administer 2 sprays into each nostril daily *This note is dictated using [employer] voice recognition software, variances in spelling and vocabulary are possible and unintentional.* Gabi Victoria PA-C documented in this encounter Miscellaneous Notes * Assessment & Plan Note - Gabi Victoria PA - 01/30/2022 11:03 AM CDT Associated Problem(s): Viral URI (Resolved 08/23/2022) Start antihistamine (Claritin OR Zyrtec), Mucinex 12hour and Steroid nasal spray (Flonase). Push fluids. Rest. Supportive care. If sxs worsen or don\'t improve, pt is to followup in the office. documented in this encounter Plan of Treatment Not on file documented as of this encounter Visit Diagnoses Diagnosis Viral URI- Primary Acute upper respiratory infections of unspecified site documented in this encounter Care Teams Flash Ranging Crewmember Relationship Specialty Start Date End Date Gabi Victoria PA [address] [place] [address] PCP - General Internal Medicine 02/19/19 documented as of this encounter
--- OUTSIDE RECORDS SUMMARY | 2024-11-08 14:00 | XMS_ITS | Encounter Summary ---
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 Gender Identity Not on file Sexual Orientation Not on file Occupation Industry Job Start Date Job End Date Retired Not on file Not on file Not on file documented as of this encounter Plan of Treatment Not on file documented as of this encounter Procedures Procedure Name Priority Date/Time Associated Diagnosis Comments SCAN - PATHOLOGY 05/11/2023 documented in this encounter Results * SCAN - PATHOLOGY (05/11/2023) us Provider Scanning Final Result documented in this encounter Visit Diagnoses Not on filedocumented in this encounter Care Teams Safety And Security Manager Relationship Specialty Start Date End Date Gabi Victoria PA [address] [place] [address] PCP - General Internal Medicine 02/19/19 documented as of this encounter
--- OUTSIDE RECORDS SUMMARY | 2024-11-08 14:00 | XMS_ITS | Encounter Summary ---
Author Organization [facility] Address [address] [facility] [address] [place] [id number] Care Team Providers Care Channel Partners Name Role Phone Gabi Victoria Primary Care Provider +1- [phone] Reason for Referral * Diagnostic Imaging (Routine) - Closed Specialty Diagnoses / Procedures Referred By Hiram chance Referred To Contact Diagnoses Breast cancer screening by mammogram Procedures Screening Mammogram Bilateral W Damien Gabi Victoria PA [address] [place] [id number] Phone: tel: fax: External Order Referral ID Status Reason Start Date Expiration Date Visits Re quested Visits Authorized [id number] Closed 04/02/2023 05/01/2024 1 1 * MRI/CAT/PET Scan (Routine) - Closed Specialty Diagnoses / Procedures Referred By Hiram chance Referred To Contact Diagnoses Former smoker Procedures CT Lung Cancer Screening Gabi Victoria PA [address] [place] [address] Phone: tel: fax: Unknown Place of Service fax: Referral ID Status Reason Start Date Expiration Date Visits Re quested Visits Authorized [id number] Closed 04/02/2023 05/01/2024 1 1 Reason for Visit * Reason Comments Chronic Concern Pt presents today fo r MWc Medicare Wellness Pt presents today fo r MWC. Encounter Details Date Type Department Care Team (Late st Contact Info) Description 04/02/2023 9:30 AM CDT Office Visit [facility] Family Medicine [address] [place] [address] Gabi Victoria PA [address] [place] [address] Medicare annual wellness visit, subsequent (Primary Dx); Mixed hyperlipidemia; Anxiety; History of colon polyps; Stage 3a chronic kidney disease (HCC); Moderate episode of recurrent major depressive disorder (HCC); Former smoker; Fatigue, unspecified type; Hyperglycemia; Breast cancer screening by mammogram; BMI 25.0-25.9,adult [...] on file 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 Gender Identity Not on file Sexual Orientation Not on file Occupation Industry Job Start Date Job End Date Retired Not on file Not on file Not on file documented as of this encounter Last Filed Vital Signs Vital Sign Reading Time Taken Comments Blood Pressure 118/66 04/02/2023 9:16 AM CDT Pulse 74 04/02/2023 9:16 AM CDT Temperature 36.6 ??C (97.9 ??F) 04/02/2023 9:16 AM CD T Respiratory Rate - - Oxygen Saturation 98% 04/02/2023 9:16 AM CDT Inhaled Oxygen Concentration - - Weight 62.1 kg (136 lb 14.4 oz) 04/02/2023 9:16 AM CDT Height 157.5 cm (5' 2.01 ) 04/02/2023 9:16 AM CD T Body Mass Index 25.03 04/02/2023 9:16 AM CDT documented in this encounter Progress Notes * Gabi Victoria PA - 04/02/2023 9:30 AM CDT Images from the original note were not included. Subjective/Objective Patient ID: Ani Ortiz is a 73 y.o. female. Chief Complaint Chronic Concern (Pt presents today for MWc) and Medicare Wellness (Pt presents today for MWC.) HPI Patient presents for MWE and followup chronic concerns. Urology -- Dr. Fregoso Followup prn. Kidney stones --- CT showed a 3mm stone -- Has flomax prn. Depression - Prozac 60mg and Wellbutrin, buspar and klonipin. Stable. She is doing regular counseling LDCT due to repeat after 03/13/2022 Benign changes -- repeat 03/2023 Quit smoking 03/2022 Insomnia - Ambien Patient [...] DXA - 03/2022 STABLE -- Mamm - 03/2022 Review of Systems See HPI Vitals: 04/02/23 0916 BP: 118/66 BP Location: Left arm Patient Position: Sitting Pulse: 74 Temp: 36.6 ??C (97.9 ??F) TempSrc: Oral SpO2: 98% Weight: 62.1 kg (136 lb 14.4 oz) Height: 157.5 cm (5' [...] Medicare annual wellness visit, subsequent (Z00.00) (Primary) Mixed hyperlipidemia (E78.2) Assessment & Plan: Encouraged patient to follow low fat/low chol diet like the Mediterranean diet. Increase good fats in the diet. Increase exercise. Monitor labs as needed. Continue Crestor Orders: - Comprehensive metabolic panel; Future - Lipid panel; Future Anxiety (F41.9) Assessment & Plan: Continue Prozac 60 Wellbutrin BuSpar and Klonopin continue with counseling History of colon polyps (Z86.010) Assessment & Plan: History of colon polyps. Due to repeat colonoscopy in May of 2024 Stage 3a chronic kidney disease (HCC) (N18.31) Assessment & Plan: Avoid nephrotoxic drugs including NSAIDs. Monitor labs. Moderate episode of recurrent major depressive disorder (HCC) (F33.1) Assessment & Plan: Continue Prozac 60 Wellbutrin BuSpar and Klonopin continue with counseling Former smoker (Z87.891) Assessment & Plan: Due for low-dose CT. Order placed. Orders: - CT Lung Cancer Screening; Future Fatigue, unspecified type (R53.83) Assessment & Plan: Probably multifactorial. Check labs and followup to re-evaluate Orders: - CBC with auto differential; Future - TSH; Future Hyperglycemia (R73.9) Assessment & Plan: Pre-diabetes/hyperglycemia is a precursor to Dm. Stressed importance of working on diet (decrease your simple sugars and one carbohydrate with each meal) and increase you exercise to achieve weight loss and this will help prevent you from progressing to diabetes. Orders: - Hemoglobin A1c; Future Breast cancer screening by mammogram (Z12.31) Assessment & Plan: Mammogram order provided Orders: - Screening Mammogram Bilateral W Damien; Future BMI 25.0-25.9,adult (Z68.25) Assessment & Plan: Weight/BMI [...] No Using the toilet: No Memory problems: Yes Difficulty speaking: No Pain: No Sexual Health: No Fatigue: No Have you experienced any of the following problems currently or recently? Laundry and/or housekeeping: No Handling Money: No Shopping: No Food preparation: No Transportation: No Taking and/or getting your own medications: No Do you use prescription drugs that are not prescribed for you?: No Problem List, Past Medical and Surgical History: Patient Active Problem List Diagnosis Mixed hyperlipidemia Anxiety Tremor History of colon polyps Cold sore Other insomnia Chronic kidney disease (CKD), stage III (moderate) (HCC) Cough Osteopenia of left hip Bilateral thumb pain Moderate episode of recurrent major depressive disorder (HCC) Coronary artery calcification seen on CT scan Former smoker RBBB Menopause Annual physical exam Flu vaccine need Urinary tract infection with hematuria Dysuria BMI 25.0-25.9,adult Fatigue Hyperglycemia Breast cancer screening by mammogram Past Medical History: Diagnosis Date Allergic rhinitis [...] Social History Tobacco Use Smoking status: Former Types: Cigarettes, Vaping Quit date: 04/09/2020 Years since quittin.9 Smokeless tobacco: Never Substance and Sexual Activity Drug use: Never Sexual activity: Not Currently control/protection: Post-menopausal Alcohol Use: Not At Risk (04/02/2023) AUDIT-C Frequency of Alcohol Consumption: Monthly or less Average Number of Drinks: 1 or 2 Frequency of Binge Drinking: Less than monthly Allergies: Allergies Allergen Reactions Cephalexin Rash Cephalosporins Rash Penicillin V Potassium Rash Shellfish Unknown Erythromycin Vomiting Medications: Current Outpatient Medications: buPROPion XL (WELLBUTRIN XL) 300 mg 24 [...] NOSTRIL DAILY, Disp: 48 g, Rfl: 1 rosuvastatin (CRESTOR) 40 mg tablet, TAKE 1 TABLET(40 MG) BY MOUTH DAILY, Disp: 90 tablet, Rfl: 1 valACYclovir (VALTREX) 1 gram tablet, Take TWO tabs po at onset of cold sore. Take TWO tabs po 12 hours later., Disp: 20 tablet, Rfl: 0 vit D3-vit J-ugybmhsls-yqii [phone] pcin-ada-ml-mg tablet, Take 50 mcg by mouth, Disp: , Rfl: zolpidem (AMBIEN) 10 mg tablet, Take 1 tablet (10 mg total) by mouth nightly as needed for sleep for sleep, Disp: 90 tablet, Rfl: 0 albuterol HFA (ProAir HFA) 90 mcg/actuation inhaler, Inhale 2 puffs every 4 (four) hours as needed for wheezing or shortness of breath, Disp: 8.5 g, Rfl: 0 aspirin 81 mg chewable tablet, Take 1 tablet (81 mg total) by mouth daily, Disp: 30 tablet, Rfl: 11 Depression Screen: PHQ Screening Over the past 2 weeks, how often [...] - General (Internal Medicine) Primary Pharmacy/DME suppliers: [id number] - [place], [place] - [address] [facility] [address] [facility] [address] Detection of Cognitive Impairment: The patient does not have cognitive impairment based on direct observation, discussion with patientor family, or review of medical records. Health Maintenance: Health Maintenance Topics with due status: Overdue Topic Date Due Hepatitis C Screening Never done Covid-19 Vaccine 03/29/2021 Lung Cancer Screening 03/13/2023 Health Maintenance Topics with due status: Due On Topic Date Due Breast Cancer Screening-Mammogram 03/13/2023 Health Maintenance Topics with due status: Not Due Topic Last Completion Date Colon Cancer Screening-Colonoscopy 06/02/2019 DTaP/Tdap/Td Vaccine 09/23/2020 Osteoporosis Screening-Bone Density Scan 03/13/2022 Well Visit 65+ 08/23/2022 Fall Risk Assessment 04/02/2023 Depression Screening-PHQ 04/02/2023 Health Maintenance Topics with due status: Completed Topic Last Completion Date Pneumococcal vaccine 65+ 08/19/2020 Zoster Vaccines 11/22/2020 Influenza Vaccine 08/23/2022 Health Maintenance Topics with due status: Discontinued Topic Date Due Colon Cancer Screening-DNA Stool Discontinued Colon Cancer Screening-CT Colonography Discontinued Colon Cancer Screening-FIT Discontinued Colon Cancer Screening-Sigmoidoscopy Discontinued Colon Cancer Screening-FOBT Discontinued Counseling and Referral of Preventative Services: Lifestyle Recommendations Increase Physical Activity, Stop Using Tobacco, Reduce Weight, and Improve Diet Advanced Directive Durable Power of Hydroelectric Plant Structural Engineer: Discussed Today Living Will: Discussed Today Patient [...] office visit. *This note is dictated using [employer] medical voice recognition software, variances in spelling and vocabulary are possible and unintentional.* Gabi Victoria PA-C documented in this encounter Miscellaneous Notes * Result Encounter Note - Gabi Victoria PA - 06/28/2023 4:35 PM CDT Let pt know her mammogram is normal and will plan to repeat in 1 year. * Result Encounter Note - Gabi Victoria PA - 04/23/2023 8:52 AM CDT Let patient know the recent LDCT/lung cancer screening was ok. Plan to repeat in 1 year for routinescreening. * Assessment & Plan Note - Gabi Victoria PA - 04/02/2023 2:21 PM CDT Associated Problem(s): Breast cancer screening by mammogram (Resolved 08/26/2023) Mammogram order provided * Assessment & Plan Note - Gabi Victoria PA - 04/02/2023 2:20 PM CDT Associated Problem(s): Hyperglycemia Pre-diabetes/hyperglycemia is a precursor to Dm. Stressed importance of working on diet (decrease your simple sugars and one carbohydrate with each meal) and increase you exercise to achieve weight loss and this will help prevent you from progressing to diabetes. * Assessment & Plan Note - Gabi Victoria PA - 04/02/2023 2:20 PM CDT Associated Problem(s): Fatigue (Resolved 09/07/2024) Probably multifactorial. Check labs and followup to re-evaluate * Assessment & Plan Note - Gabi Victoria PA - 04/02/2023 2:20 PM CDT Associated Problem(s): Former smoker Due for low-dose CT. Order placed. * Assessment & Plan Note - Gabi Victoria PA - 04/02/2023 2:20 PM CDT Associated Problem(s): Moderate episode of recurrent major depressive disorder (HCC) Continue Prozac 60 Wellbutrin BuSpar and Klonopin continue with counseling * Assessment & Plan Note - Gabi Victoria PA - 04/02/2023 2:19 PM CDT Associated Problem(s): Stage 3a chronic kidney disease (HCC) Avoid nephrotoxic drugs including NSAIDs. Monitor labs. * Assessment & Plan Note - Gabi Victoria PA - 04/02/2023 2:19 PM CDT Associated Problem(s): History of colon polyps History of colon polyps. Due to repeat colonoscopy in May of 2024 * Assessment & Plan Note - Gabi Victoria PA - 04/02/2023 2:17 PM CDT Associated Problem(s): Anxiety Continue Prozac 60 Wellbutrin BuSpar and Klonopin continue with counseling * Assessment & Plan Note - Gabi Victoria PA - 04/02/2023 2:17 PM CDT Associated Problem(s): Mixed hyperlipidemia Encouraged patient to follow low fat/low chol diet like the Mediterranean diet. Increase good fats in the diet. Increase exercise. Monitor labs as needed. Continue Crestor * Assessment & Plan Note - Leonela Combs MA - 04/02/2023 9:19 AM CDTAssociated Problem(s): BMI 25.0-25.9,adult (Resolved 08/14/2023) Weight/BMI is in healthy range. Continue healthy lifestyle to maintain. documented in this encounter Plan of Treatment Not on file documented as of this encounter Procedures Procedure Name Priority Date/Time Associated Diagnosis Comments SCREENING MAMMOGRAM BILATERAL W DAMIEN Schedule Routine, Read Routine (OP Routine) 06/28/2023 Breast cancer screening by mammogram CBC WITH AUTO DIFFERENTIAL Routine 05/21/2023 9:49 AM CDT Fatigue, unspecified type TSH Routine 05/21/2023 9:49 AM CDT Fatigue, unspecified type HEMOGLOBIN A1C Routine 05/21/2023 9:49 AM CDT Hyperglycemia LIPID PANEL Routine 05/21/2023 9:49 AM CDT Mixed hyperlipidemia COMPREHENSIVE METABOLIC PANEL Routine 05/21/2023 9:49 AM CDT Mixed hyperlipidemia CT LUNG CANCER SCREENING Schedule Routine, Read Routine (OP Routine) 04/20/2023 Former smoker documented in this encounter Results * Screening Mammogram Bilateral W Damien (06/28/2023) Anatomical Region Laterality Modality Breast Bilateral Mammography Gabi DURÁN IMG MAMMO PROCEDURES Final Result * TSH (05/21/2023 9:49 AM CDT) Pathologist [facility] TSH 1.95 0.40 - 4.50 mIU/L [facility] [employer] [facility] Blood 05/21/2023 9:49 AM CDT 05/21/2023 9:50 AM CDT Narrative [facility] - 05/22/2023 12:17 AM CDT FASTING:YES FASTING: YES Gabi DURÁN LAB BLOOD ORDERABLES Final Result [facility] [address] [place] [address] * Lipid panel (05/21/2023 9:49 AM CDT) Cholesterol 134 <200 mg/dL [facility] HDL 60 > OR = 50 mg/dL [facility] Triglycerides 96 <150 mg/dL [facility] LDL 56 mg/dL (calc) [facility] Comment: Reference range: <100 Desirable range <100 mg/dL for primary prevention; ?? <70 mg/dL for patients with CHD or diabetic patients with > or = 2 CHD risk factors. LDL-C is now calculated using the Nazario calculation, which is a validated novel method providing better accuracy than the Friedewald equation in the estimation of LDL-C. Curt DAI et al. NESS. 2013;310(19): 5464-8092 (http://education.Share Your Brain/faq/UFV594) Chol/HDL ratio 2.2 <5.0 (calc) [employer] robson Ruiz Non-HDL, (LDL+VLDL) 74 <130 mg/dL (calc) [employer] robson Ruiz Comment: For patients with diabetes plus 1 major ASCVD risk factor, treating to a non-HDL-C goal of <100 mg/dL (LDL-C of <70 mg/dL) is considered a therapeutic option. Blood 05/21/2023 9:49 AM CDT 05/21/2023 9:50 AM CDT Narrative [facility] - 05/22/2023 12:17 AM CDT FASTING:YES FASTING: YES Gabi DURÁN LAB BLOOD ORDERABLES Final Result Performing Organization Address [facility] Co de Phone Number [facility] [address] [place] [address] * Hemoglobin A1c (05/21/2023 9:49 AM CDT) Hgb A1C 5.3 <5.7 % of total Hgb [facility] Comment: For the purpose of screening for the presence of diabetes: <5.7% ? Consistent with the absence of diabetes 5.7-6.4% ?Consistent with increased risk for diabetes ?(prediabetes) > or =6.5% ??Consistent with diabetes This assay result is consistent with a decreased risk of diabetes. Currently, no consensus exists regarding use of hemoglobin A1c for diagnosis of diabetes in children. According to [place] Diabetes Association (ADA) guidelines, hemoglobin A1c <7.0% represents optimal control in non- diabetic patients. Different metrics may apply to specific patient populations. Standards of Medical Care in Diabetes(ADA). ?? Blood 05/21/2023 9:49 AM CDT 05/21/2023 9:50 AM CDT Narrative [facility] - 05/22/2023 12:17 AM CDT FASTING:YES FASTING: YES Gabi DURÁN LAB BLOOD ORDERABLES Final Result [facility]Michelle [facility] [address] [place] [address] * (ABNORMAL) Comprehensive metabolic panel (05/21/2023 9:49 AM CDT) Glucose 76 65 - 99 mg/dL [facility] Comment: ? Fasting reference interval BUN 15 7 - 25 mg/dL [facility] [employer] Creatinine 1.28(H) 0.60 - 1.00 mg/dL [facility] [employer] eGFR 45(L) > OR = 60 mL/min/1.7 3m2 [facility] [employer] Comment: The eGFR is based on the CKD-EPI 2020 equation. To calculate the new eGFR from a previous Creatinine or Cystatin C result, go to https://www.kidney.org/professionals/ kdoqi/gfr%5Fcalculator BUN/creat ratio 12 6 - 22 (calc) Alfredo [employer]Emile [facility] Sodium 138 135 - 146 mmol/L [facility] Potassium, pl 4.4 3.5 - 5.3 mmol/L [employer] robson Ruiz Chloride 104 98 - 110 mmol/L [employer] robson Ruiz CO2 27 20 - 32 mmol/L [employer] Calcium 9.4 8.6 - 10.4 mg/dL Alfred[facility] [employer] Protein, sr 6.4 6.1 - 8.1 g/dL Alfredo [employer]S robson Ruiz Albumin 4.4 3.6 - 5.1 g/dL [employer]son Ruiz GLOBULIN 2.0 1.9 - 3.7 g/dL (calc) [employer]son Ruiz Alb/glob ratio 2.2 1.0 - 2.5 (calc) [employer] Ruiz Bilirubin, total 0.4 0.2 - 1.2 mg/dL [employer] orbson Ruiz Alk phos 82 37 - 153 U/L [employer] AST 18 10 - 35 U/L [employer]Emile Ruiz ALT (SGPT) 19 6 - 29 U/L [employer] Blood 05/21/2023 9:49 AM CDT 05/21/2023 9:50 AM CDT Narrative [facility] - 05/22/2023 12:17 AM CDT FASTING:YES FASTING: YES Gabi DURÁN LAB BLOOD ORDERABLES Final Result [facility] [employer] [address] [place] [address] * CBC with auto differential (05/21/2023 9:49 AM CDT) WBC 5.4 3.8 - 10.8 Thousand/u L [employer] RBC, POC 4.44 3.80 - 5.10 Million/uL [employer] Hgb 13.6 11.7 - 15.5 g/dL [employer] Hct 41.4 35.0 - 45.0 % [employer] MCV 93.2 80.0 - 100.0 fL [employer] MCH 30.6 27.0 - 33.0 pg [employer] MCHC 32.9 32.0 - 36.0 g/dL [employer] Rdw 12.0 11.0 - 15.0 % [employer] Platelets 229 140 - 400 Thousand/u L [employer] MPV 12.2 7.5 - 12.5 fL [employer] Neutrophils, abs 3,024 1,500 - 7,800 cells/uL [employer] Lymphocytes, abs 1,674 850 - 3,900 cells/uL [employer] Monocyte abs 594 200 - 950 cells/uL [employer] Eosinophils, abs 70 15 - 500 cells/uL [employer] Basophils, abs 38 0 - 200 cells/uL [employer] Neutrophils 56 % [employer] Lymphocyte pct 31.0 % [employer] Monocytes 11.0 % [employer] Eosinophils 1.3 % [employer] Basophils 0.7 % [employer] Blood 05/21/2023 9:49 AM CDT 05/21/2023 9:50 AM CDT Narrative [facility] - 05/22/2023 12:17 AM CDT FASTING:YES FASTING: YES Gabi DURÁN LAB BLOOD ORDERABLES Final Result [facility] [address] [place] [address] * (ABNORMAL) CT Lung Cancer Screening (04/20/2023) Anatomical Region Laterality Modality Chest N/A Computed Tomogra phy 04/20/[address] PROCEDURES Edited R esult - Final documented in this encounter Visit Diagnoses Diagnosis Medicare annual wellness visit, subsequent- Primary Mixed hyperlipidemia Anxiety Anxiety state, unspecified History of colon polyps Stage 3a chronic kidney disease (HCC) Moderate episode of recurrent major depressive disorder (HCC) Former smoker Personal history of tobacco use, presenting hazards to health Fatigue, unspecified type Hyperglycemia Other abnormal glucose Breast cancer screening by mammogram BMI 25.0-25.9,adult documented in this encounter Care Teams Channel Partners Relationship Specialty Start Date End Date Gabi Victoria PA [address] [facility] [address] [place] [address] PCP - General Internal Medicine 02/19/19 documented as of this encounter
--- OUTSIDE RECORDS SUMMARY | 2024-11-08 14:00 | XMS_ITS | Encounter Summary ---
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 Gender Identity Not on file Sexual Orientation Not on file Occupation Industry Job Start Date Job End Date Retired Not on file Not on file Not on file documented as of this encounter Plan of Treatment Not on file documented as of this encounter Procedures Procedure Name Priority Date/Time Associated Diagnosis Comments SCAN - RADIOLOGY/IMAGING 04/09/2022 documented in this encounter Results * SCAN - RADIOLOGY/IMAGING (04/09/2022) Anatomical Region Laterality Modality Other us Provider Scanning Final Result documented in this encounter Visit Diagnoses Not on filedocumented in this encounter Care Teams Electric Motor Controls Assembler Relationship Specialty Start Date End Date Gabi Victoria PA [address] [place] [address] PCP - General Internal Medicine 02/19/19 documented as of this encounter
--- OUTSIDE RECORDS SUMMARY | 2024-11-08 14:00 | XMS_ITS | Encounter Summary ---
Author Organization [facility] Address [address] [place] [address] Care Team Providers Care Sales Representative Jewelry Name Role Phone Gabi Victoria Primary Care Provider [phone]- [phone] Encounter Details Date Type Department Care Team (Late st Contact Info) Description 04/10/2022 Orders Only [facility] Cardiology [address] [place] [address] Leonel Chawla MD [address] [facility] [address] [place] [address] Social History Tobacco Use Types Packs/Day Years [...] on file Legal Sex 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 Gender Identity Not on file Sexual Orientation Not on file Occupation Industry Job Start Date Job End Date Retired Not on file Not on file Not on file documented as of this encounter Plan of Treatment Not on file documented as of this encounter Procedures Procedure Name Priority Date/Time Associated Diagnosis Comments CARDIOLOGY DOCUMENT SCAN Routine 04/10/2022 documented in this encounter Results * Cardiology Document Scan (04/10/2022) Anatomical Region Laterality Modality Other Leonel Chawla MD [facility] CARDIAC SERVICES PROC EDURES Final Result documented in this encounter Visit Diagnoses Not on filedocumented in this encounter Care Teams Sales Representative Jewelry Relationship Specialty Start Date End Date Gabi Victoria PA [address] [facility] [address] [place] [address] PCP - General Internal Medicine 02/19/19 documented as of this encounter
--- OUTSIDE RECORDS SUMMARY | 2024-11-08 14:00 | XMS_ITS | Encounter Summary ---
Author Organization [facility] Address [address] [facility] [address] [place] [address] Care Team Providers Care Water Rights Specialist Name Role Phone Gabi Victoria Primary Care Provider [phone]- [phone] Reason for Visit * Reason Comments Annual Exam Flu Vaccine Encounter Details Date Type Department Care Team (Late st Contact Info) Description 08/23/2022 1:30 PM CDT Office Visit [facility] Family Medicine [address] [place] [address] Gabi Victoria PA [address] [place] [address] Annual physical exam (Primary Dx); Mixed hyperlipidemia; Anxiety; History of colon polyps; Stage 3a chronic kidney disease (HCC); Moderate episode of recurrent major depressive disorder (HCC); Flu vaccine need; Former smoker; Osteopenia of left hip; BMI 26.0-26.9,adult Social History Tobacco Use Types [...] on file 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 Gender Identity Not on file Sexual Orientation Not on file Occupation Industry Job Start Date Job End Date Retired Not on file Not on file Not on file documented as of this encounter Last Filed Vital Signs Vital Sign Reading Time Taken Comments Blood Pressure 148/82 08/23/2022 1:38 PM CDT Pulse 62 08/23/2022 1:38 PM CDT Temperature 36.8 ??C (98.3 ??F) 08/23/2022 1:38 PM CD T Respiratory Rate - - Oxygen Saturation 99% 08/23/2022 1:38 PM CDT Inhaled Oxygen Concentration - - Weight 64.9 kg (143 lb) 08/23/2022 1:38 PM CDT Height 157.5 cm (5' 2 ) 08/23/2022 1:38 PM CDT Body Mass Index 26.16 08/23/2022 1:38 PM CDT documented in this encounter Progress Notes * Gabi Victoria PA - 08/23/2022 1:30 PM CDT Images from the original note were not included. Subjective/Objective Patient ID: Ani Ortiz is a 72 y.o. female. Chief Complaint Annual Exam and Flu Vaccine HPI Patient presents for wellness exam and followup chronic concerns. Depression - Prozac 60mg and Wellbutrn, buspar and klonipin. Stable. She is doing regular counseling LDCT due to repeat after 03/13/2022 Benign changes -- repeat 1 year. Quit smoking 03/2022 Insomnia - Ambien Patient [...] 03/2022 Review of Systems See HPI Vitals: 08/23/22 1338 BP: 148/82 BP Location: Left arm Patient Position: Sitting Pulse: 62 Temp: 36.8 ??C (98.3 ??F) TempSrc: Oral SpO2: 99% Weight: 64.9 kg (143 lb) Height: 157.5 cm (5' 2 ) Physical [...] Monitor labs as needed. Continue Crestor 40 Anxiety (F41.9) Assessment & Plan: Patient has continued depression anxiety symptoms. Continue Prozac 60, Wellbutrin 300 and BuSpar and p.r.n. Klonopin. She feels like she is doing pretty well strongly encouraged her to continue counseling. History of colon polyps (Z86.010) Assessment & Plan: Last colonoscopy in May of 2019 due to repeat 2023 Stage 3a chronic kidney disease (HCC) (N18.31) Assessment & Plan: Avoid nephrotoxic drugs including NSAIDs. Monitor labs. Moderate episode of recurrent major depressive disorder (HCC) (F33.1) Assessment & Plan: Patient has continued depression anxiety symptoms. Continue Prozac 60, Wellbutrin 300 and BuSpar and p.r.n. Klonopin. She feels like she is doing pretty well strongly encouraged her to continue counseling. Flu vaccine need (Z23) Assessment & Plan: Flu vaccine updated in the office Orders: - Flu Vaccine Quad High Dose PF 65Y+ IM - Fluzone High Dose Quad Former smoker (Z87.891) Assessment & Plan: Patient stop smoking in March of 2022. He continue to monitor low-dose CT annually or as indicated Osteopenia of left hip (M85.852) Assessment & Plan: DEXA was stable. Has mild osteopenia of the left hip. Continue calcium in her diet, she has kidney stones, vitamin-D and exercise. Continue to monitor DEXA in 3 years BMI 26.0-26.9,adult (Z68.26) Assessment & Plan: Weight/BMI is in healthy range. Continue healthy lifestyle to maintain. *This note is dictated using [email or web address] voice recognition software, variances in spelling and vocabulary are possible and unintentional.* Gabi Victoria PA-C Cosigned by Herrera Sidhu MD at 08/24/2022 8:50 AM CDT documented in this encounter Miscellaneous Notes * Assessment & Plan Note - Gabi Victoria PA - 08/23/2022 8:34 PM CDT Associated Problem(s): BMI 26.0-26.9,adult (Resolved 04/02/2023) Weight/BMI is in healthy range. Continue healthy lifestyle to maintain. * Assessment & Plan Note - Gabi Victoria PA - 08/23/2022 8:34 PM CDT Associated Problem(s): Flu vaccine need (Resolved 08/26/2023) Flu vaccine updated in the office * Assessment & Plan Note - Gabi Victoria PA - 08/23/2022 8:34 PM CDT Associated Problem(s): Annual physical exam (Resolved 09/25/2023) Encouraged healthy lifestyle, good nutrition and exercise. Encouraged Calcium and Vitamin D and weight bearing exercise for bone health. Reviewed immunizations Reviewed age appropirate screenings. * Assessment & Plan Note - Gabi Victoria PA - 08/23/2022 8:34 PM CDT Associated Problem(s): Former smoker Patient stop smoking in March of 2022. He continue to monitor low-dose CT annually or as indicated * Assessment & Plan Note - Gabi Victoria PA - 08/23/2022 8:34 PM CDT Associated Problem(s): Moderate episode of recurrent major depressive disorder (HCC) Patient has continued depression anxiety symptoms. Continue Prozac 60, Wellbutrin 300 and BuSpar and p.r.n. Klonopin. She feels like she is doing pretty well strongly encouraged her to continue counseling. * Assessment & Plan Note - Gabi Victoria PA - 08/23/2022 8:33 PM CDT Associated Problem(s): Osteopenia of left hip DEXA was stable. Has mild osteopenia of the left hip. Continue calcium in her diet, she has kidney stones, vitamin-D and exercise. Continue to monitor DEXA in 3 years * Assessment & Plan Note - Gabi Victoria PA - 08/23/2022 8:33 PM CDT Associated Problem(s): Stage 3a chronic kidney disease (HCC) Avoid nephrotoxic drugs including NSAIDs. Monitor labs. * Assessment & Plan Note - Gabi Victoria PA - 08/23/2022 8:32 PM CDT Associated Problem(s): History of colon polyps Last colonoscopy in May of 2019 due to repeat 2023 * Assessment & Plan Note - Gabi Victoria PA - 08/23/2022 8:32 PM CDT Associated Problem(s): Anxiety Patient has continued depression anxiety symptoms. Continue Prozac 60, Wellbutrin 300 and BuSpar and p.r.n. Klonopin. She feels like she is doing pretty well strongly encouraged her to continue counseling. * Assessment & Plan Note - Gabi Victoria PA - 08/23/2022 8:32 PM CDT Associated Problem(s): Mixed hyperlipidemia Encouraged patient to follow low fat/low chol diet like the Mediterranean diet. Increase good fats in the diet. Increase exercise. Monitor labs as needed. Continue Crestor 40 documented in this encounter Plan of Treatment Not on file documented as of this encounter Visit Diagnoses Diagnosis Annual physical exam- Primary Routine general medical examination at a health care facility Mixed hyperlipidemia Anxiety Anxiety state, unspecified History of colon polyps Stage 3a chronic kidney disease (HCC) Moderate episode of recurrent major depressive disorder (HCC) Flu vaccine need Former smoker Personal history of tobacco use, presenting hazards to health Osteopenia of left hip BMI 26.0-26.9,adult documented in this encounter Orders Immunization/Injection Count Last Ordered Date First Ordered Date FLU VACCINE HIGH DOSE QUAD P F 65Y+ IM - FLUZONE HIGH DOS 1 08/23/2022 documented in this encounter Care Teams Water Rights Specialist Relationship Specialty Start Date End Date Gabi Victoria PA [address] [address] PCP - General Internal Medicine 02/19/19 documented as of this encounter
--- OUTSIDE RECORDS SUMMARY | 2024-11-08 14:00 | XMS_ITS | Encounter Summary ---
Author Organization [facility] Address [address] [place] [address] Care Team Providers Care Technical Account Executive Name Role Phone Gabi Victoria Primary Care Provider [phone]- [phone] Encounter Details Date Type Department Care Team (Late st Contact Info) Description 02/10/2022 9:00 AM CDT Office Visit [facility] Family Medicine [address] [place] [address] Gabi Victoria PA [address] [place] [address] Viral URI (Primary Dx); BMI 26.0-26.9,adult Social History Tobacco Use Types [...] on file 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 Gender Identity Not on file Sexual Orientation Not on file Occupation Industry Job Start Date Job End Date Retired Not on file Not on file Not on file documented as of this encounter Last Filed Vital Signs Vital Sign Reading Time Taken Comments Blood Pressure 120/80 02/10/2022 9:23 AM CDT Pulse 81 02/10/2022 9:23 AM CDT Temperature 37.1 ??C (98.7 ??F) 02/10/2022 9:23 AM CD T Respiratory Rate - - Oxygen Saturation 96% 02/10/2022 9:23 AM CDT Inhaled Oxygen Concentration - - Weight 65 kg (143 lb 3.2 oz) 02/10/2022 9:23 AM CDT Height 157.5 cm (5' 2 ) 02/10/2022 9:23 AM CDT Body Mass Index 26.19 02/10/2022 9:23 AM CDT documented in this encounter Ordered Prescriptions Prescription Sig Dispense Quantity Refills Last Filled Start Date End Date benzonatate (TESSALON) 100 mg capsuleIndications :Cough Take 1 capsule (100 mg total) by mouth 3 (three) times a day as needed for cough 42 capsule 02/10/2022 2 documented in this encounter Progress Notes * Gabi Victoria PA - 02/10/2022 9:00 AM CDT Images from the original note were not included. Subjective/Objective Patient ID: Ani Ortiz is a 71 y.o. female. Chief Complaint No chief complaint on file. Shortness of Breath This is a new problem. The current episode started yesterday. The problem occurs intermittently. The problem has been gradually improving. The average episode lasts 10 months. Associated symptoms include rhinorrhea and wheezing. Pertinent negatives include no abdominal pain, chest pain, claudication, coryza, ear pain, fever, headaches, hemoptysis, leg pain, leg swelling, neck pain, orthopnea, PND, rash, sore throat, sputum production, swollen glands, syncope or vomiting. The symptoms are aggravated by URIs. Patient presents to followup Respiratory infection. Was seen 02/08. And started on Medrol dose pack and Levaquin with Albuterol prn. Taking without difficulty Chest xray was negative for cardiopulm disease. Noting improvement. Breathing much easier. Tolerating the Levaquin and almost done with the Medrol Dosepak. Using albuterol just as needed. Review of Systems Constitutional: Negative for fever. HENT: Positive for rhinorrhea. Negative for ear pain and sore throat. Respiratory: Positive for shortness of breath and wheezing. Negative for hemoptysis and sputum production. Cardiovascular: Negative for chest pain, orthopnea, claudication, leg swelling, syncope and PND. Gastrointestinal: Negative for abdominal pain and vomiting. Musculoskeletal: Negative for neck pain. Skin: Negative for rash. Neurological: Negative for headaches. See HPI Vitals: 02/10/22 0923 BP: 120/80 BP Location: Left arm Patient Position: Sitting Pulse: 81 Temp: 37.1 ??C (98.7 ??F) TempSrc: Oral SpO2: 96% Weight: 65 kg (143 lb 3.2 oz) Height: 157.5 cm (5' 2 ) Physical Exam Constitutional: Appearance: Normal appearance. Pulmonary: Effort: Pulmonary effort is normal. Comments: Rare wheeze. Moving air without difficulty Neurological: Mental Status: She is alert. Assessment/Plan Diagnoses and all orders for this visit: Viral URI (J06.9) (Primary) Assessment & Plan: Improving. Negative for pneumonia so probable viral versus other type of bacterial infection. Encouraged her to complete the Levaquin. Complete the Medrol Dosepak. Continue with the albuterol as needed. Tessalon Perles were sent for cough to use as needed. Call if symptoms worsen or do not completely resolve. BMI 26.0-26.9,adult (Z68.26) Assessment & Plan: Weight/BMI is in healthy range. Continue healthy lifestyle to maintain. Other orders - benzonatate (TESSALON) 100 mg capsule; Take 1 capsule (100 mg total) by mouth 3 (three) times a day as needed for cough *This note is dictated using [employer] voice recognition software, variances in spelling and vocabulary are possible and unintentional.* Gabi Victoria PA-C documented in this encounter Miscellaneous Notes * Assessment & Plan Note - Gabi Victoria PA - 02/11/2022 9:34 PM CDT Associated Problem(s): Viral URI (Resolved 08/23/2022) Improving. Negative for pneumonia so probable viral versus other type of bacterial infection. Encouraged her to complete the Levaquin. Complete the Medrol Dosepak. Continue with the albuterol as needed. Tessalon Perles were sent for cough to use as needed. Call if symptoms worsen or do not completely resolve. * Assessment & Plan Note - Robi Castro MA - 02/10/2022 9:23 AM CDT Associated Problem(s): BMI 26.0-26.9,adult (Resolved 02/21/2022) Weight/BMI is in healthy range. Continue healthy lifestyle to maintain. documented in this encounter Plan of Treatment Not on file documented as of this encounter Visit Diagnoses Diagnosis Viral URI- Primary Acute upper respiratory infections of unspecified site BMI 26.0-26.9,adult documented in this encounter Care Teams Technical Account Executive Relationship Specialty Start Date End Date Gabi Victoria PA [address] [facility] [address] [place] [address] PCP - General Internal Medicine 02/19/19 documented as of this encounter
--- OUTSIDE RECORDS SUMMARY | 2024-11-08 14:00 | XMS_ITS | Encounter Summary ---
Author Organization [facility] Address [address] [place] [address] Care Team Providers Care Web Architect Name Role Phone Gabi Victoria Primary Care Provider [phone]- [phone] Reason for Visit * Reason Comments nurse visit Pt presents today fo r possible UTI. 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 Gender Identity Not on file Sexual Orientation Not on file Occupation Industry Job Start Date Job End Date Retired Not on file Not on file Not on file documented as of this encounter Ordered Prescriptions Prescription Sig Dispense Quantity Refills Last Filled Start Date End Date nitrofurantoin monohydrate (MACROBID) 100 mg capsuleIndications :Urinary tract infection with hematuria, site unspecified Take 1 capsule (100 mg total) by mouth 2 (two) times a day for 5 days 10 capsule 02/27/2023 3 documented in this encounter Progress Notes * Gabi Victoria PA - 02/26/2023 11:30 AM CDT Images from the original note were not included. Subjective/Objective Patient ID: Ani Ortiz is a 72 y.o. female. Chief Complaint nurse visit (Pt presents today for possible UTI. Pt is reporting spasms before, during and sometimes after urination) HPI Presents with urinary sxs. For nurse visit Review of Systems See HPI There were no vitals filed for this visit. Physical Exam Assessment/Plan Diagnoses and all orders for this visit: Dysuria (R30.0) (Primary) Assessment & Plan: Pt presents with dysuria. Urine dip completed. Send urine culture. Antibiotic to pharmacy. Reviewed bladder care. Orders: - POCT urinalysis dipstick - Urine culture Urine, clean voided; Future Urinary tract infection with hematuria, site unspecified (N39.0, R31.9) Assessment & Plan: Pt presents with dysuria. Urine dip completed. Send urine culture. Antibiotic to pharmacy. Reviewed bladder care. Orders: - nitrofurantoin monohydrate (MACROBID) 100 mg capsule; Take 1 capsule (100 mg total) by mouth 2 (two) times a day for 5 days *This note is dictated using [employer] medical voice recognition software, variances in spelling and vocabulary are possible and unintentional.* Gabi Victoria PA-C documented in this encounter Miscellaneous Notes * Assessment & Plan Note - Gbai Victoria PA - 02/27/2023 7:54 AM CDT Associated Problem(s): Dysuria (Resolved 08/26/2023) Pt presents with dysuria. Urine dip completed. Send urine culture. Antibiotic to pharmacy. Reviewed bladder care. * Assessment & Plan Note - Gabi Victoria PA - 02/27/2023 7:54 AM CDT Associated Problem(s): Urinary tract infection with hematuria (Resolved 08/26/2023) Pt presents with dysuria. Urine dip completed. Send urine culture. Antibiotic to pharmacy. Reviewed bladder care. documented in this encounter Plan of Treatment Not on file documented as of this encounter Procedures Procedure Name Priority Date/Time Associated Diagnosis Comments URINE CULTURE Routine 02/26/2023 12:06 PM CDT Dysuria POCT URINALYSIS DIPSTICK Routine 02/26/2023 11:53 AM CDT Dysuria documented in this encounter Results * Urine culture Urine, clean voided (02/26/2023 12:06 PM CDT) Urine culture [employer] Comment: ??CULTURE, URINE, ROUTINE ?Micro Number: ?[id number] ??Test Status: ? Final ??Specimen Source: ?? Urine ??Specimen Quality: ??Adequate ??Result: ?No Growth Urine, clean voided 02/26/2023 12:06 PM CDT 02/27/2023 12:42 AM CDT Gabi DUR[facility]N LAB MICROBIOLOGY - GENERAL ORDERABLES Final Result [facility] [address] [place] [address] * (ABNORMAL) POCT urinalysis dipstick (02/26/2023 11:53 AM CDT) Glucose, ur, POC Negative Negative MG/DL Bilirubin, ur, POC Moderate Negative, Small, Moderate, Large Ketones, ur, POC Negative Negative Specific [place], POC 1.010 1.005 - 1.030 Blood, ur, POC Moderate(A) Negative pH, ur, POC 6.0 5.0 - 8.0 Protein, ur, POC Negative Negative Urobilinogen, urine, POC 0.2 0.2 - 1.0 mg/dL Nitrite, ur, POC Negative Negative Leukocytes, ur, POC Negative Negative Lot Number [id number] Urine 02/26/2023 11:5 3 AM CDT Gabi DURÁN POINT OF CARE TEST ORDERAB LES Final Result documented in this encounter Visit Diagnoses Diagnosis Dysuria- Primary Urinary tract infection with hematuria, site unspecified documented in this encounter Care Teams Web Architect Relationship Specialty Start Date End Date Gabi Victoria PA [address] [facility] [address] [place] [address] PCP - General Internal Medicine 02/19/19 documented as of this encounter
--- OUTSIDE RECORDS SUMMARY | 2024-11-08 14:00 | XMS_ITS | Encounter Summary ---
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 Gender Identity Not on file Sexual Orientation Not on file Occupation Industry Job Start Date Job End Date Retired Not on file Not on file Not on file documented as of this encounter Plan of Treatment Not on file documented as of this encounter Procedures Procedure Name Priority Date/Time Associated Diagnosis Comments CARDIOLOGY DOCUMENT SCAN Routine 04/09/2022 documented in this encounter Results * Cardiology Document Scan (04/09/2022) Anatomical Region Laterality Modality Other Leonel Chawla MD CV CARDIAC SERVICES PROC EDURES Final Result documented in this encounter Visit Diagnoses Not on filedocumented in this encounter Care Teams Recreation Program Specialist Relationship Specialty Start Date End Date Gabi Victoria PA [address] [facility] [address] [place] [address] PCP - General Internal Medicine 02/19/19 documented as of this encounter
--- OUTSIDE RECORDS SUMMARY | 2024-11-08 14:00 | XMS_ITS | Encounter Summary ---
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 Gender Identity Not on file Sexual Orientation Not on file Occupation Industry Job Start Date Job End Date Retired Not on file Not on file Not on file documented as of this encounter Plan of Treatment Not on file documented as of this encounter Procedures Procedure Name Priority Date/Time Associated Diagnosis Comments SCAN - PATHOLOGY 04/14/2022 documented in this encounter Results * SCAN - PATHOLOGY (04/14/2022) us Provider Scanning Final Result documented in this encounter Visit Diagnoses Not on filedocumented in this encounter Care Teams Brake Lining Curer Relationship Specialty Start Date End Date Gabi Victoria PA [address] [place] [address] PCP - General Internal Medicine 02/19/19 documented as of this encounter
--- OUTSIDE RECORDS SUMMARY | 2024-11-08 14:00 | XMS_ITS | Encounter Summary ---
Author Organization 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 Gender Identity Not on file Sexual Orientation Not on file Occupation Industry Job Start Date Job End Date Retired Not on file Not on file Not on file documented as of this encounter Plan of Treatment Not on file documented as of this encounter Procedures Procedure Name Priority Date/Time Associated Diagnosis Comments SCAN - RADIOLOGY/IMAGING 03/05/2023 documented in this encounter Results * SCAN - RADIOLOGY/IMAGING (03/05/2023) Anatomical Region Laterality Modality Other us Provider Scanning Edited Result - Final documented in this encounter Visit Diagnoses Not on filedocumented in this encounter Care Teams Electric Power Machine Operator Relationship Specialty Start Date End Date Gabi Victoria PA [address] [facility] [address] [place] [address] PCP - General Internal Medicine 02/19/19 documented as of this encounter
--- OUTSIDE RECORDS SUMMARY | 2024-11-08 14:00 | XMS_ITS | Encounter Summary ---
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 Gender Identity Not on file Sexual Orientation Not on file Occupation Industry Job Start Date Job End Date Retired Not on file Not on file Not on file documented as of this encounter Plan of Treatment Not on file documented as of this encounter Procedures Procedure Name Priority Date/Time Associated Diagnosis Comments CT LUNG CANCER SCREENING Schedule Routine, Read Routine (OP Routine) 03/13/2022 Former smoker documented in this encounter Results * CT Lung Cancer Screening (03/13/2022) Anatomical Region Laterality Modality Chest N/A Computed Tomogra phy Gabi DURÁN IMG CT PROCEDURES Final Re sult documented in this encounter Visit Diagnoses Diagnosis Former smoker Personal history of tobacco use, presenting hazards to health documented in this encounter Care Teams Human Services Professional Relationship Specialty Start Date End Date Gabi Victoria PA [address] [facility] [place] [address] PCP - General Internal Medicine 02/19/19 documented as of this encounter
--- OUTSIDE RECORDS SUMMARY | 2024-11-08 14:00 | XMS_ITS | Encounter Summary ---
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 Gender Identity Not on file Sexual Orientation Not on file Occupation Industry Job Start Date Job End Date Retired Not on file Not on file Not on file documented as of this encounter Plan of Treatment Not on file documented as of this encounter Procedures Procedure Name Priority Date/Time Associated Diagnosis Comments SCAN - RADIOLOGY/IMAGING 04/19/2022 documented in this encounter Results * SCAN - RADIOLOGY/IMAGING (04/19/2022) Anatomical Region Laterality Modality Other us Provider Scanning Final Result documented in this encounter Visit Diagnoses Not on filedocumented in this encounter Care Teams Director Card Relationship Specialty Start Date End Date Gabi Victoria PA [address] [place] [address] PCP - General Internal Medicine 02/19/19 documented as of this encounter
--- OUTSIDE RECORDS SUMMARY | 2024-11-08 14:00 | XMS_ITS | Encounter Summary ---
Author Organization [facility] Address [address] [place] [address] Care Team Providers Care Investigations Consultant Name Role Phone Gabi Victoria Primary Care Provider +1- [phone] Reason for Visit * Reason Onset Date Comments [facility] in Home Health Assessment 07/14/2022 Encounter Details Date Type Department Care Team (Late st Contact Info) Description 07/14/2022 Telephone [facility] Accountable Care Organization [address] [place] [id number] Isabel Steiner MA [facility] in Home Health Assessment Social History Tobacco Use Types Packs/Day Years [...] on file 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 Gender Identity Not on file Sexual Orientation Not on file Occupation Industry Job Start Date Job End Date Retired Not on file Not on file Not on file documented as of this encounter Miscellaneous Notes * Telephone Encounter - Isabel Steiner MA - 07/14/2022 7:01 AM CDT Downloaded [facility] in Home Health Assessment, sent to PCP Isabel Steiner, Ice Cream Van Vendor, [facility] Accountable Care Organization/[facility] documented in this encounter Plan of Treatment Not on file documented as of this encounter Visit Diagnoses Not on filedocumented in this encounter Care Teams Investigations Consultant Relationship Specialty Start Date End Date Gabi Victoria PA [address] [address] PCP - General Internal Medicine 02/19/19 documented as of this encounter
--- OUTSIDE RECORDS SUMMARY | 2024-11-08 14:00 | XMS_ITS | Encounter Summary ---
Author Organization [facility] Address [address] [place] [address] Care Team Providers Care Manager Port Name Role Phone Gabi Victoria Primary Care Provider +1- [phone] Reason for Referral * Diagnostic Imaging (Routine) - Closed Specialty Diagnoses / Procedures Referred By Hiram t Referred To Contact Diagnoses Cough Procedures XR Chest Pa Lateral 2 Vw Gabi Victoria PA [address] [place] [address] Phone: tel: fax: Unknown Place of Service fax: Referral ID Status Reason Start Date Expiration Date Visits Re quested Visits Authorized [id number] Closed 02/08/2022 03/10/2023 1 1 Encounter Details Date Type Department Care Team (Late st Contact Info) Description 02/08/2022 10:45 AM CDT Office Visit [facility] Family Medicine [address] [place] [address] Gabi Victoria PA [address] [place] [address] Cough (Primary Dx) Social History Tobacco Use Types [...] on file 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 Gender Identity Not on file Sexual Orientation Not on file Occupation Industry Job Start Date Job End Date Retired Not on file Not on file Not on file documented as of this encounter Ordered Prescriptions Prescription Sig Dispense Quantity Refills Last Filled Start Date End Date albuterol HFA (ProAir HFA) 90 mcg/actuation inhaler Inhale 2 puffs every 4 (four) hours as needed for wheezing or shortness of breath 8.5 g 02/08/2022 4 predniSONE (DELTASONE) 20 mg tablet Take 3 tablets (60 mg) by mouth daily for 5 days 15 tablet 02/08/2022 2 levoFLOXacin (LEVAQUIN) 500 mg tablet Take 1 tablet (500 mg total) by mouth daily for 10 days 10 tablet 02/08/2022 2 documented in this encounter Progress Notes * Gabi Victoria PA - 02/08/2022 10:45 AM CDT Images from the original note were not included. Subjective/Objective Patient ID: Ani Ortiz is a 71 y.o. female. Chief Complaint No chief complaint on file. HPI Patient presents with difficulty breathing Last week treat viral URI/allergies. Encouraged Flonase Mucinex and antihistamine. She states her symptoms did get better but all of a sudden she started having more of a cough and wheezing. She called for of the [place] full in product that she states her provider many years ago use to give her own when she had some difficulty breathing. Advise we do not really use that product especially in people who do not have asthma and encouraged her to come in for a visit. -- She denies any history of asthma. She is not on any inhalers. She has a history of smoking and states I probably have COPD but I do not want to be on inhalers. Has not had a chest x-ray. COVID -x3 with booster Review of Systems See HPI There were no vitals filed for this visit. Physical Exam Vitals and nursing note reviewed. Constitutional: Appearance: She is well-developed. HENT: Head: Normocephalic and atraumatic. Eyes: Comments: Pupils are equal Cardiovascular: Rate and Rhythm: Normal rate and regular rhythm. Heart sounds: No murmur heard. Pulmonary: Effort: Pulmonary effort is normal. Breath sounds: Wheezing and rhonchi present. Abdominal: Palpations: Abdomen is soft. Tenderness: There is no abdominal tenderness. Skin: General: Skin is warm and dry. Findings: No rash. Neurological: Mental Status: She is alert and oriented to person, place, and time. Assessment/Plan Diagnoses and all orders for this visit: Cough (R05.9) (Primary) Assessment & Plan: Persistent cough. She has quite a bit [...] She verbalizes understanding agreement with the plan Orders: - XR Chest Pa Lateral 2 Vw; Future Other orders - levoFLOXacin (LEVAQUIN) 500 mg tablet; Take 1 tablet (500 mg total) by mouth daily for 10 days - predniSONE (DELTASONE) 20 mg tablet; Take 3 tablets (60 mg) by mouth daily for 5 days - albuterol HFA (ProAir HFA) 90 mcg/actuation inhaler; Inhale 2 puffs every 4 (four) hours as needed for wheezing or shortness of breath *This note is dictated using [employer] voice recognition software, variances in spelling and vocabulary are possible and unintentional.* Gabi Victoria PA-C documented in this encounter Miscellaneous Notes * Assessment & Plan Note - Gabi Victoria PA - 02/08/2022 7:57 PM CDT Associated Problem(s): Cough Persistent cough. She has quite a bit [...] She verbalizes understanding agreement with the plan documented in this encounter Plan of Treatment Not on file documented as of this encounter Procedures Procedure Name Priority Date/Time Associated Diagnosis Comments XR CHEST PA LATERAL 2 VIEWS Schedule Routine, Read Routine (OP Routine) 02/08/2022 Cough documented in this encounter Results * XR Chest Pa Lateral 2 Vw (02/08/2022) Anatomical Region Laterality Modality Body, Chest N/A Radiographic Juanis ging Gabi BALLESTEROSG XR PROCEDURES Final Re sult documented in this encounter Visit Diagnoses Diagnosis Cough- Primary documented in this encounter Care Teams Manager Port Relationship Specialty Start Date End Date Gabi Victoria PA [address] [place] [address] PCP - General Internal Medicine 02/19/19 documented as of this encounter
--- OUTSIDE RECORDS SUMMARY | 2024-11-08 14:00 | XMS_ITS | Encounter Summary ---
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 * Telephone Encounter - Jesenia Lee MD - 03/20/2022 3:08 PM CDT Called and spoke to radiologist Dr. Yip, who reviewed her images. She has had fatty infiltration of the right ventricle and, to a degree the septum, since the first CT scan in 2019. She also has fairly heavy coronary calcification (which we knew about and are treating). Almost always the fatty infiltration represents an old infarction. (Since it involves the right ventricle, he can not r/o an unusual disease which used to be called arrhythmogenic right ventricular dysplasia, now right ventricular cardiomyopathy. However, we have not seen anything c/w/ this disease.) She had a Stress Echo done a couple of years ago which looked nml, but with the stress Echos we don't look much at the right ventricle and if the septal problem is small we might not see much by stress Echo. I called pt and reviewed the above. The pt recalls that about 15 years ago she was hospitalized forCP, had neg trop and neg stress test; otherwise she can't recall any sx that could have been an MS.She is aware that she has CAD but heart muscle is strong, and we are working on keeping it that way. * Telephone Encounter - Cyndee Rose RN - 03/16/2022 9:24 AM CDT noted * Telephone Encounter - Jesenia Lee MD - 03/16/2022 9:12 AM CDT I'm going to call radiology and ask about this for more information. * Telephone Encounter - Cyndee Rose RN - 03/13/2022 4:29 PM CDT ----- Message from Ani Ortiz sent at 03/13/2022 4:01 PM CDT ----- Regarding: Lung CT Done today Will forward to [facility] as FYI documented in this encounter Plan of Treatment Not on file documented as of this encounter Visit Diagnoses Not on filedocumented in this encounter Care Teams Skidder Lever Operator Relationship Specialty Start Date End Date Gabi Victoria PA [address] [address] PCP - General Internal Medicine 02/19/19 documented as of this encounter
--- OUTSIDE RECORDS SUMMARY | 2024-11-08 14:00 | XMS_ITS | Encounter Summary ---
Author Organization [facility] Address [address] [place] [address] Care Team Providers Care Oil Dispenser Name Role Phone Gabi Victoria Primary Care Provider +1- [phone] Reason for Visit * Reason Onset Date Comments Test Results 02/28/2022 Encounter Details Date Type Department Care Team ([facility] st Contact Info) Description 02/28/2022 Telephone [facility] Cardiology [address] [facility] [address] [place] [address] Jesenia Lee MD [address] [place] [address] Test Results Social History Tobacco Use Types [...] on file 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 CT of the chest last year showed a cardiac abnormality, possibly an old [place]. Please reassure patient; tell her that her EKG today looks fine, no evidence of any old [place] by EKG or by her stress echo. Try not to worry about it, documented in this encounter Plan of Treatment Not on file documented as of this encounter Visit Diagnoses Not on filedocumented in this encounter Care Teams Oil Dispenser Relationship Specialty Start Date End Date Gabi Victoria PA [address] [facility] [address] [place] [address] PCP - General Internal Medicine 02/19/19 documented as of this encounter
--- OUTSIDE RECORDS SUMMARY | 2024-11-08 14:00 | XMS_ITS | Encounter Summary ---
Author Organization [facility] Address [address] [place] [address] Care Team Providers Care Government Professor Name Role Phone Gabi Victoria Primary Care Provider [phone]- [phone] Reason for Visit * Reason Comments Follow-up annual f/u on flores ry artery calcification Encounter Details Date Type Department Care Team (Latest Contact Info) Description 02/28/2022 1:00 PM CDT Office Visit [facility] Cardiology [address] [place] [address] Jesenia Lee MD [address] [place] [address] Coronary artery calcification seen on CT scan (Primary Dx); Mixed hyperlipidemia; Former smoker; RBBB Social History Tobacco Use Types Packs/Day Years [...] on file 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 Gender Identity Not on file Sexual Orientation Not on file Occupation Industry Job Start Date Job End Date Retired Not on file Not on file Not on file documented as of this encounter Last Filed Vital Signs Vital Sign Reading Time Taken Comments Blood Pressure 130/84 02/28/2022 12:58 PM CDT Pulse 76 02/28/2022 12:58 PM CDT Temperature - - Respiratory Rate - - Oxygen Saturation 97% 02/28/2022 12:58 PM CDT Inhaled Oxygen Concentration - - Weight 65.8 kg (145 lb) 02/28/2022 12:58 PM CDT Height 157.5 cm (5' 2 ) 02/28/2022 12:58 PM CDT Body Mass Index 26.52 02/28/2022 12:58 PM CDT documented in this encounter Progress Notes * Jesenia Lee MD - 02/28/2022 1:00 PM CDT [facility] Cardiology [facility] DATE OF VISIT: 02/28/2022 DATE: 1950 CHIEF COMPLAINT Chief Complaint Patient presents with ??? Follow-up annual f/u on coronary artery calcification Follow-up coronary artery calcification. ALEXI Ortiz is a 71 y.o. female with coronary artery calcification. Patient has a history of current smoking, depression, and anxiety. 11/24/2020 Initial Office Consultation with Rosa: Coronary artery calcification was incidentally noted on a chest CT scan. No h/o heart disease. Taking Crestor currently 20 mg daily for 20 years.Walks regularly outside, 10,000 steps/day in [facility]. No trouble walking up steps. No chest/arm/shoulder/back/neck pain/pressure/contriction. Resumed smoking 1979. Quit smoking 48 y.o. and started vapping, resumed smoking for a year recently. No HTN or DM. Added aspirin, increased rosuvastatin, ordered a stress echo. 02/25/2021 OV with PRODUCT MARKETING MANAGER C Baylee: She returns for follow-up after [...] have observed apnea, feels rested during the day and does not need to take naps. 02/27/2022 [...] and labs reviewed. GFR 49 from 01/2022. 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 Quit in smoking in 2018. , 2 daughters 1 son. Lives with her mother and her Great PyrennPretty akhtar. MEDICAL HISTORY Past Medical History: Diagnosis Date ??? Allergic rhinitis ??? Anxiety ??? COPD (chronic obstructive pulmonary disease) (CMS/HCC) (HCC) ??? Coronary artery calcification ??? Depression Suicide attempt 1968 a ??? Emphysema of lung (CMS/HCC) (HCC) ??? Hyperlipidemia ??? Kidney stones ??? Mixed conductive and sensorineural hearing loss Social History Tobacco Use ??? Smoking status: Former Smoker Types: Cigarettes, Vaping Quit date: 04/09/2020 Years since quittin.8 ??? Smokeless tobacco: Never Used Substance Use Topics ??? Alcohol use: Yes Comment: Rarely ??? Drug use: Never Family History Problem Relation Age of Onset ??? Hyperlipidemia Mother ??? Other (Cancer, gioblastoma) Father ??? Cancer Father MEDICATIONS Current Outpatient Medications: ??? albuterol HFA (ProAir [...] DAILY, Disp: 270 tablet, Rfl: 1 ??? clonazePAM (KlonoPIN) 1 mg tablet, Take 1 tablet (1 mg total) by mouth every 8 (eight) hours asneeded for anxiety, Disp: 30 tablet, Rfl: 0 ??? cranberry 400 mg capsule, Take by [...] Disp: , Rfl: 1 ??? vit D3-vit Q-ihhmmspje-zfkb [id number] lqiy-idy-pw-mg tablet, Take 50 mcg by mouth, Disp: ,Rfl: ??? zolpidem (AMBIEN) 10 mg tablet, TAKE 1 TABLET(10 MG) BY MOUTH EVERY NIGHT NEEDED FOR SLEEP, Disp: 90 tablet, Rfl: 0 ALLERGIES Allergies Allergen Reactions ??? Cephalexin Rash ??? Cephalosporins Rash ??? Penicillin V Potassium Rash ??? Shellfish Unknown ??? Erythromycin Vomiting REVIEW OF SYSTEMS Review of Systems Constitutional: Negative for malaise/fatigue. HENT: Negative for congestion. Eyes: Negative for visual disturbance. Cardiovascular: Negative for chest pain, dyspnea on exertion and syncope. Respiratory: Positive for cough (chronic), shortness of breath (resolved bronchitis) and wheezing (resolved). Hematologic/Lymphatic: Negative for bleeding problem. Musculoskeletal: Positive for joint pain and myalgias. Gastrointestinal: Positive for heartburn. Negative for abdominal pain. Genitourinary: Negative for hematuria. Neurological: Negative for dizziness. Psychiatric/Behavioral: Positive for depression (better after change in meds). PHYSICAL EXAM Blood pressure 130/84, pulse 76, height 157.5 cm (5' 2 ), weight 65.8 kg (145 lb), SpO2 97 %. Body mass index is 26.52 kg/m??. Physical Exam Constitutional: Appearance: Normal appearance. She is well-developed. Neck: Thyroid: No thyromegaly. Vascular: No carotid bruit. Cardiovascular: Rate and Rhythm: Normal rate and regular rhythm. Heart sounds: Normal heart sounds. No murmur heard. Pulmonary: Effort: Pulmonary effort is normal. No respiratory distress. Breath sounds: Normal breath sounds. Abdominal: General: There is no distension. Palpations: Abdomen is soft. Musculoskeletal: General: No swelling. Skin: General: Skin is warm and dry. Neurological: Mental Status: She is alert and oriented to person, place, and time. Psychiatric: Mood and Affect: Mood normal. Behavior: Behavior normal. LABS AND OTHER DIAGNOSTIC TESTS Lab Results Component Value Date WBC 5.8 01/03/2019 HGB 13.6 01/03/2019 HCT 40.3 01/03/2019 MCV 93.1 01/03/2019 Chemistry Component Value Date/Time SODIUM 141 01/11/2022 1009 POTASSIUM 4.1 01/11/2022 1009 CHLORIDE 107 01/11/2022 1009 CO2 26 01/11/2022 1009 BUNSER 16 01/11/2022 1009 CREATININE 1.14 (H) 01/11/2022 1009 GLUCOSE 76 01/11/2022 1009 Component Value Date/Time CALCIUM 9.5 01/11/2022 1009 ALKPHOS 87 01/11/2022 1009 AST 22 01/11/2022 1009 ALT 22 01/11/2022 1009 BILITOT 0.4 01/11/2022 1009 Lab Results Component Value Date CHOL 149 01/11/2022 CHOL 164 12/30/2019 CHOL 143 01/03/2019 Lab Results Component Value Date GLUCOSE 76 01/11/2022 CALCIUM 9.5 01/11/2022 SODIUM 141 01/11/2022 POTASSIUM 4.1 01/11/2022 CO2 26 01/11/2022 CHLORIDE 107 01/11/2022 BUNSER 16 01/11/2022 CREATININE 1.14 (H) 01/11/2022 Lab Results Component Value Date HDL 63 01/11/2022 HDL 48 (L) 12/30/2019 HDL 51 01/03/2019 LDL Date Value Ref Range Status 01/11/2022 69 mg/dL (calc) Final Comment: Reference range: <100 Desirable range <100 mg/dL for primary prevention; <70 mg/dL for patients with CHD or diabetic patients with > or = 2 CHD risk factors. LDL-C is now calculated using the Curt-Deshpande calculation, which is a validated novel method providing better accuracy than the Friedewald equation in the estimation of LDL-C. Curt SS et al. NESS. 2013;310(19): 0674-4008 (http://education.FLENS.Daily Dealy/faq/LST835) 12/30/2019 93 mg/dL (calc) Final Comment: Reference range: <100 Desirable range <100 mg/dL for primary prevention; <70 mg/dL for patients with CHD or diabetic patients with > or = 2 CHD risk factors. LDL-C is now calculated using the Curt-Deshpande calculation, which is a validated novel method providing better accuracy than the Friedewald equation in the estimation of LDL-C. Curt SS et al. NESS. 2013;310(19): 0493-2393 (http://education.FLENS.Daily Dealy/faq/IBV239) ] No results found for: LDLCALC Lab Results Component Value Date TRIG 90 01/11/2022 TRIG 133 12/30/2019 TRIG 94 01/03/2019 Lab Results Component Value Date CHOLHDL 2.4 01/11/2022 CHOLHDL 3.4 12/30/2019 No results found for: INR, PROTIME 12/30/2019 cholesterol 164, LDL 93 01/11/2022 total cholesterol 149, HDL 63, TG 90, LDL 69 11/2020 stress echo: Negative at 7.0 minutes 12/2019 CT scan: Moderate to severe coronary arterial calcification 01/20/[address]: Epicardial fat along the septal wall consistent with a prior infarction with moderate to severe coronary arterial calcification and an afferent right subclavian artery. ASSESSMENT Diagnoses and all orders for this visit: Coronary artery calcification seen on CT scan (Primary) - ECG 12 lead Mixed hyperlipidemia Former smoker RBBB Coronary artery calcification: 70-year-old female with incidentally noted coronary artery calcification. She is asymptomatic. Interestingly, the CT of her chest in January 2021 showed an abnormality consistent with an infarction which is a new finding. Patient cannot recall any time when she she had significant chest discomfort or prolonged heartburn that would account for any NV. May be a spuriousfinding. Has another CT scan scheduled for January 11. Hyperlipidemia: Now on rosuvastatin 40 mg a day and LDL cholesterol has improved. No history of hypertension and blood pressure is reasonable. No diabetes and remains a nonsmoker. RBBB: noted; usually a benign finding. Appears to be intermittent. PLAN/RECOMMENDATIONS Counseled pt re: CAD, signs and sx, tx. Continue aspirin and rosuvastatin. Checked an EKG for any signs of old infarction or change. EKG today shows NSR rate 67, left axis deviation but otherwise normal EKG, no evidence of any old NV. interestingly, there is no right bundlebranch block pattern on this EKG, rate somewhat slower than prior EKGs. Patient will call me when she gets her CT done in March and we will review Increase exercise Follow-up in 1 year, sooner if needed. Jesenia Lee MD, [facility] Cardiology Office: [phone] or [phone] Portions of the record may have been created with voice recognition VersionEye Fluency Direct Software.Monument Installer variances may occur. Despite proofreading, typographical errors may occur. Occasionalwrong-word or '[id number]' substitutions may have occurred due to the inherent limitations of voice recognition software. Read the chart carefully and recognize, using context, where substitutions have occurred. documented in this encounter Plan of Treatment Not on file documented as of this encounter Procedures Procedure Name Priority Date/Time Associated Diagnosis Comments ECG 12-LEAD Routine 02/28/2022 Coronary artery calcification seen on CT scan documented in this encounter Results * ECG 12 lead (02/28/2022) us Jesenia Lee MD ECG ORDERABLES Edited Resu lt - Final documented in this encounter Visit Diagnoses Diagnosis Coronary artery calcification seen on CT scan- Primary Mixed hyperlipidemia Former smoker Personal history of tobacco use, presenting hazards to health RBBB documented in this encounter Care Teams Government Professor Relationship Specialty Start Date End Date Gabi Victoria PA [address] [facility] [address] [place] [address] PCP - General Internal Medicine 02/19/19 documented as of this encounter
--- OUTSIDE RECORDS SUMMARY | 2024-11-08 14:00 | XMS_ITS | Encounter Summary ---
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 Gender Identity Not on file Sexual Orientation Not on file Occupation Industry Job Start Date Job End Date Retired Not on file Not on file Not on file documented as of this encounter Plan of Treatment Not on file documented as of this encounter Procedures Procedure Name Priority Date/Time Associated Diagnosis Comments SCAN - RADIOLOGY/IMAGING 04/08/2022 CARDIOLOGY DOCUMENT SCAN 04/08/2022 documented in this encounter Results * CARDIOLOGY DOCUMENT SCAN (04/08/2022) Anatomical Region Laterality Modality Other us Provider Scanning CV CARDIAC SERVICES PROCEDURES Final Result * SCAN - RADIOLOGY/IMAGING (04/08/2022) Anatomical Region Laterality Modality Other us Provider Scanning Edited Result - Final documented in this encounter Visit Diagnoses Not on filedocumented in this encounter Care Teams Engineering Equipment Operator Relationship Specialty Start Date End Date Gabi Victoria PA [address] [address] PCP - General Internal Medicine 02/19/19 documented as of this encounter
--- OUTSIDE RECORDS SUMMARY | 2024-11-08 14:01 | XMS_ITS | Encounter Summary ---
Author Organization [facility] Address [address] [place] [address] Care Team Providers Care Oil Gauger Name Role Phone Gabi Victoria Primary Care Provider [phone]- [phone] Encounter Details Date Type Department Care Team (Late st Contact Info) Description 02/16/2020 Telephone [facility] Family Medicine [address] [place] [address] Gabi Victoria PA [address] [place], [place] [id number] Social History Tobacco Use Types Packs/Day Years Used Date Smoking Tobacco: Every Day Smokeless Tobacco: Never Alcohol Use Standard Drinks/Week Comments Yes 0 (1 standard drink = 0.6 oz pur e alcohol) Rarely PHQ-2 Answer Date Recorded PHQ-2 Total Score (If total score is 3 or more points, staff should administer the PHQ-9) 6 01/05/2020 Comments Unknown Sex and Gender Information Value Date Recorded Sex Assigned at Not on file 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 Repeat in 1 year. documented in this encounter Plan of Treatment Not on file documented as of this encounter Visit Diagnoses Not on filedocumented in this encounter Care Teams Oil Gauger Relationship Specialty Start Date End Date Gabi Victroia PA [address] [facility] [address] [place] [address] PCP - General Internal Medicine 02/19/19 documented as of this encounter
--- OUTSIDE RECORDS SUMMARY | 2024-11-08 14:01 | XMS_ITS | Encounter Summary ---
Author Organization [facility] Address [address] [facility] [address] [place] [address] Care Team Providers Care Vertica Architect Name Role Phone Gabi Victoria Primary Care Provider +1- [phone] Reason for Referral * Diagnostic Imaging (Routine) - Closed Specialty Diagnoses / Procedures Referred By Contac t Referred To Contact Diagnoses Menopause Procedures Dexa Axial Skeleton Bone Density 1 or 2 Site Gabi Victoria PA [address] [place] [id number] Phone: tel: fax: Unknown Place of Service fax: Referral ID Status Reason Start Date Expiration Date Visits Re quested Visits Authorized [id number] Closed 07/19/2021 08/18/2022 1 1 * Diagnostic Imaging (Routine) - Closed Specialty Diagnoses / Procedures Referred By Contac t Referred To Contact Diagnoses Breast cancer screening by mammogram Procedures Screening Mammogram Bilateral W Damien Gabi Victoria PA [address] [place] [address] Phone: tel: fax: Unknown Place of Service fax: Referral ID Status Reason Start Date Expiration Date Visits Re quested Visits Authorized [id number] Closed 07/19/2021 08/18/2022 1 1 Reason for Visit * Reason Comments Follow-up Encounter Details Date Type Department Care Team (Latest Contact Info) Description 07/19/2021 9:00 AM CDT Office Visit [facility] Family Medicine [address] [place] [address] Gabi Victoria PA [address] [place] [address] Annual physical exam (Primary Dx); Coronary artery calcification seen on CT scan; Mixed hyperlipidemia; History of colon polyps; Stage 3a chronic kidney disease (HCC); Moderate episode of recurrent major depressive disorder (HCC); Osteopenia of left hip; Other insomnia; Former smoker; BMI 26.0-26.9,adult; Breast cancer screening by mammogram; Menopause Social History Tobacco Use Types Packs/Day Years [...] on file 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 Gender Identity Not on file Sexual Orientation Not on file Occupation Industry Job Start Date Job End Date Retired Not on file Not on file Not on file documented as of this encounter Last Filed Vital Signs Vital Sign Reading Time Taken Comments Blood Pressure 122/88 07/19/2021 9:09 AM CDT Pulse 78 07/19/2021 9:09 AM CDT Temperature 36.2 ??C (97.1 ??F) 07/19/2021 9:09 AM CD T Respiratory Rate - - Oxygen Saturation 96% 07/19/2021 9:09 AM CDT Inhaled Oxygen Concentration - - Weight 66.5 kg (146 lb 9.6 oz) 07/19/2021 9:09 A M CDT Height 157.5 cm (5' 2 ) 07/19/2021 9:09 AM CDT Body Mass Index 26.81 07/19/2021 9:09 AM CDT documented in this encounter Ordered Prescriptions Prescription Sig Dispense Quantity Refills Last Filled Start Date End Date FLUoxetine (PROzac) 40 mg capsule Take 1 capsule (40 mg total) by mouth daily Patient is on 60mg so she will take 20mg plus 40mg 90 capsule 2 07/19/2021 FLUoxetine (PROzac) 20 mg capsule Take 1 capsule (20 mg total) by mouth daily Patient is on 60mg so she will take 20mg plus 40mg 90 capsule 1 07/19/2021 documented in this encounter Progress Notes * Gabi Victoria PA - 07/19/2021 9:00 AM CDT Images from the original note were not included. Subjective/Objective Patient ID: Ani Ortiz is a 71 y.o. female. Chief Complaint Follow-up HPI Patient presents for [facility] wellness exam and followup chronic concerns. Depression - Prozac, wellbutrin, buspar and klonipin sparingly. She is feeling more depression -- tearful today. Feels sad about having chronic diseases. No suicidal or homicidal thoughts. Smoker - stopped a few months ago. Still wants a darek every day LDCT due to repeat after 01/20/2022 ?? Insomnia - Ambien Patient is aware [...] - UTD Colonoscopy - 05/2019--->2023 DXA - 09/2019-->09/2021 - osteopenia Mamm - 09/2019 --- ?past due LDCT 01/20/2021 -->12/2021 FLU - UTD COVID - Pfizer x 2 done Review of Systems Constitutional: Negative for fever. HENT: Negative for congestion. Respiratory: Negative for shortness of breath. Cardiovascular: Negative for chest pain. Gastrointestinal: Negative for constipation and diarrhea. Vitals: 07/19/21 0909 BP: 122/88 BP Location: Left arm Patient Position: Sitting Pulse: 78 Temp: 36.2 ??C (97.1 ??F) TempSrc: Oral SpO2: 96% Weight: 66.5 kg (146 lb 9.6 oz) Height: 157.5 cm (5' 2 ) [...] health. Reviewed immunizations Reviewed age appropirate screenings. Coronary artery calcification seen on CT scan (I25.10) Assessment & Plan: Continue ASA and Crestor 40mg. Still follows with Dr. Hwang at least annually Mixed hyperlipidemia (E78.2) Assessment & Plan: Encouraged patient to follow fat/low chol diet like the Mediterranean diet. Increase good fats inthe diet. Increase exercise. Monitor labs as needed. Continue crestor History of colon polyps (Z86.010) Assessment & Plan: 05/2019--->05/2024 Stage 3a chronic kidney disease (HCC) (N18.31) Assessment & Plan: Avoid nephrotoxic drugs including NSAIDs. Monitor labs. Moderate episode of recurrent major depressive disorder (HCC) (F33.1) Assessment & Plan: This is a significant, separately identifiable problem that was evaluated and managed on the same day as the wellness exam Increased depression sxs. No suicidal or homicidal thoughts. She alludes that she is still grieving her husbands . Encouraged counseling and provided namesof counselors. Increase Prozac to 60mg (40mg plus 20mg tabs) Continue wellbutrin, buspar and klonipin sparingly. Followup 4-6 weeks to reassess. Osteopenia of left hip (M85.852) Assessment & Plan: Monitor dxa Other insomnia (G47.09) Assessment & Plan: Prefers ambien Former smoker (Z87.891) Assessment & Plan: Continue to monitor annual LDCT. Next one due 12/2021 BMI 26.0-26.9,adult (Z68.26) Assessment & Plan: Weight/BMI is in healthy range. Continue healthy lifestyle to maintain. Breast cancer screening by mammogram (Z12.31) Assessment & Plan: Mammogram order provided Orders: - Screening Mammogram Bilateral W Damien; Future Menopause (Z78.0) Assessment & Plan: Check DXA Orders: - Dexa Axial Skeleton Bone Density 1 or 2 Site; Future Other orders - FLUoxetine (PROzac) 20 mg capsule; Take 1 capsule (20 mg total) by mouth daily Patient is on 60mgso she will take 20mg plus 40mg - FLUoxetine (PROzac) 40 mg capsule; Take 1 capsule (40 mg total) by mouth daily Patient is on 60mgso she will take 20mg plus 40mg VALENTINA Ku[facility] Cosigned by Herrera Sidhu MD at 07/20/2021 8:36 AM CDT documented in this encounter Miscellaneous Notes * Result Encounter Note - Gabi Victoria PA - 03/15/2022 3:01 PM CDT Let pt know her mammogram is normal and will plan to repeat in 1 year. * Assessment & Plan Note - Gaib Victoria PA - 07/19/2021 9:18 PM CDT Associated Problem(s): Menopause Check DXA * Assessment & Plan Note - Gabi Victoria PA - 07/19/2021 9:18 PM CDT Associated Problem(s): Breast cancer screening by mammogram (Resolved 08/23/2022) Mammogram order provided * Assessment & Plan Note - Gabi Victoria PA - 07/19/2021 9:17 PM CDT Associated Problem(s): Annual physical exam (Resolved 02/24/2022) Encouraged healthy lifestyle, good nutrition and exercise. Encouraged Calcium and Vitamin D and weight bearing exercise for bone health. Reviewed immunizations Reviewed age appropirate screenings. * Assessment & Plan Note - Robi Castro MA - 07/19/2021 9:12 AM CDT Associated Problem(s): BMI 26.0-26.9,adult (Resolved 02/10/2022) Weight/BMI is in healthy range. Continue healthy lifestyle to maintain. * Assessment & Plan Note - Gabi Victoria PA - 07/18/2021 9:49 PM CDT Associated Problem(s): Former smoker Continue to monitor annual LDCT. Next one due 12/2021 * Assessment & Plan Note - Gabi Victoria PA - 07/18/2021 9:49 PM CDT Associated Problem(s): Other insomnia Prefers ambien * Assessment & Plan Note - Gabi Victoria PA - 07/18/2021 9:48 PM CDT Associated Problem(s): Osteopenia of left hip Monitor dxa * Assessment & Plan Note - Gabi Victoria PA - 07/18/2021 9:48 PM CDT Associated Problem(s): Moderate episode of recurrent major depressive disorder (HCC) This is a significant, separately identifiable problem that was evaluated and managed on the same day as the wellness exam Increased depression sxs. No suicidal or homicidal thoughts. She alludes that she is still grieving her husbands . Encouraged counseling and provided namesof counselors. Increase Prozac to 60mg (40mg plus 20mg tabs) Continue wellbutrin, buspar and klonipin sparingly. Followup 4-6 weeks to reassess. * Assessment & Plan Note - Gabi Victoria PA - 07/18/2021 9:48 PM CDT Associated Problem(s): Stage 3a chronic kidney disease (HCC) Avoid nephrotoxic drugs including NSAIDs. Monitor labs. * Assessment & Plan Note - Gabi Victoria PA - 07/18/2021 9:48 PM CDT Associated Problem(s): History of colon polyps 05/2019--->05/2024 * Assessment & Plan Note - Gabi Victoria PA - 07/18/2021 9:47 PM CDT Associated Problem(s): Mixed hyperlipidemia Encouraged patient to follow fat/low chol diet like the Mediterranean diet. Increase good fats inthe diet. Increase exercise. Monitor labs as needed. Continue crestor * Assessment & Plan Note - Gabi Victoria PA - 07/18/2021 9:47 PM CDT Associated Problem(s): Coronary artery calcification seen on CT scan Continue ASA and Crestor 40mg. Still follows with Dr. Hwang at least annually documented in this encounter Plan of Treatment Not on file documented as of this encounter Procedures Procedure Name Priority Date/Time Associated Diagnosis Comments SCREENING MAMMOGRAM BILATERAL W DAMIEN Schedule Routine, Read Routine (OP Routine) 03/13/2022 Breast cancer screening by mammogram DEXA AXIAL SKELETON BONE DENSITY 1 OR MORE SITES Schedule Routine, Read Routine (OP Routine) 03/13/2022 Menopause documented in this encounter Results * Dexa Axial Skeleton Bone Density 1 or 2 Site (03/13/2022) Anatomical Region Laterality Modality Body N/A Radiographic Juanis ging us Gabi DURÁN IMG DXA PROCEDURES Final R esult * Screening Mammogram Bilateral W Damien (03/13/2022) Anatomical Region Laterality Modality Breast Bilateral Mammography us Gabi DURÁN IMG MAMMO PROCEDURES Final Result documented in this encounter Visit Diagnoses Diagnosis Annual physical exam- Primary Routine general medical examination at a health care facility Coronary artery calcification seen on CT scan Mixed hyperlipidemia History of colon polyps Stage 3a chronic kidney disease (HCC) Moderate episode of recurrent major depressive disorder (HCC) Osteopenia of left hip Other insomnia Former smoker Personal history of tobacco use, presenting hazards to health BMI 26.0-26.9,adult Breast cancer screening by mammogram Menopause Symptomatic menopausal or female climacteric states documented in this encounter Discontinued Medications Medication Sig Discontinue Reason Start Date End Da te FLUoxetine (PROzac) 40 mg capsule Take 1 capsule (40 mg total) by mouth daily STOP the Cymbalta. Do not take together Reorder 01/13/2021 07/19/2021 documented as of this encounter Care Teams Vertica Architect Relationship Specialty Start Date End Date Gabi Victoria PA [address] [facility] [address] [place] [address] PCP - General Internal Medicine 02/19/19 documented as of this encounter
--- OUTSIDE RECORDS SUMMARY | 2024-11-08 14:01 | XMS_ITS | Encounter Summary ---
Author Organization [facility] Address [address] [facility] [address] [place] [address] Care Team Providers Care Swine Genetics Researcher Name Role Phone Gabi Victoria Primary Care Provider +1- [phone] Reason for Visit * Reason Onset Date Comments Med Refill 02/28/2021 Encounter Details Date Type Department Care Team (Late st Contact Info) Description 02/28/2021 Telephone [facility] Family Medicine [address] [facility] [address] [place] [address] Gabi Victoria PA [address] [place] [address] Med Refill Social History Tobacco Use Types Packs/Day Years Used Date Smoking Tobacco: Former Cigarettes Q uit: 04/09/2020 Vaping Smokeless Tobacco: Never Alcohol Use Standard Drinks/Week Comments Yes 0 (1 standard drink = 0.6 oz pur e alcohol) Rarely AUDIT-C Answer Date Recorded Q1: How often do you have a drink containing alc ohol? 2-4 times a month 01/13/2021 Q2: How many drinks containi ng alcohol do you have on a typical day when you are drinking? 1 or 2 01/13/2021 Q3: How often do you have si x or more drinks on one occasion? 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 Patient had requested a refill for her Zolpidem 10 mg on 02/24/21. It was refused by VERONICA Paez due to being to early. The medication had been sent to the pharmacy on 01/13/21 for 90 day supply. Jeannine tried explaining this to the patient and the patient stated that she didn'tneed the refill in january and she did not pick it up Patient kept cutting off Jeannine as Jeannine was trying to explain to the patient that the pharmacy should have that rx on file. Patient stated that the pharmacy told her that they were waiting on pcp office. Called pharmacy and they had the rx on file and could have it filled by noon. Spoke with Judy at the pharmacy. Let patient know that it willbe ready by noon, patient voiced understanding documented in this encounter Plan of Treatment Not on file documented as of this encounter Visit Diagnoses Not on filedocumented in this encounter Care Teams Swine Genetics Researcher Relationship Specialty Start Date End Date Gabi Victoria PA [address] [facility] [address] [place] [address] PCP - General Internal Medicine 02/19/19 documented as of this encounter
--- OUTSIDE RECORDS SUMMARY | 2024-11-08 14:01 | XMS_ITS | Encounter Summary ---
Author Organization [facility] Address [address] [facility] [address] [place] [address] Care Team Providers Care Furniture Assembly Supervisor Name Role Phone Gabi Victoria Primary Care Provider +1- [phone] Encounter Details Date Type Department Care Team (Late st Contact Info) Description 06/02/2021 Orders Only [facility] Cardiology [address] [facility] [address] [address] [facility] [address] [place] [address] ProviderOsito MD [address] [place] [address] Social History Tobacco Use Types Packs/Day [...] on file 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 Gender Identity Not on file Sexual Orientation Not on file Occupation Industry Job Start Date Job End Date Retired Not on file Not on file Not on file documented as of this encounter Plan of Treatment Not on file documented as of this encounter Procedures Procedure Name Priority Date/Time Associated Diagnosis Comments LIPID PANEL Routine 12/10/2020 documented in this encounter Results * Lipid panel (12/10/2020) SCRIBED Cholesterol, Total 126 <200 EXTERNAL LAB SCRIBED HDL 43 >40 EXTERNAL LAB SCRIBED LDL 62 <100 EXTERNAL LAB SCRIBED Triglycerides 86 <150 EXTERNAL LAB Blood specimen (specimen) us Historical Provider LAB BLOOD ORDERABLES Edit ed Result - Final EXTERNAL LAB documented in this encounter Visit Diagnoses Not on filedocumented in this encounter Care Teams Furniture Assembly Supervisor Relationship Specialty Start Date End Date Gabi Victoria PA [address] [place] [address] PCP - General Internal Medicine 02/19/19 documented as of this encounter
--- OUTSIDE RECORDS SUMMARY | 2024-11-08 14:01 | XMS_ITS | Encounter Summary ---
Author Organization [facility] Address [address] [facility] [address] [place] [address] Care Team Providers Care Breeding Manager Name Role Phone Gabi Victoria Primary Care Provider +1- [phone] Reason for Referral * Consultation (Routine) - Closed Specialty Diagnoses / Procedures Referred By Hiram t Referred To Contact Cardiology Diagnoses Coronary artery calcification seen on CT scan Gabi Victoria PA [address] [facility] [address] [place] [address] Phone: tel: fax: Arcenio Sandoval MD [address] [place] [address] Phone: tel: fax: Referral ID Status Reason Start Date Expiration Date V isits Requested Visits Authorized [id number] Closed Specialty Services Required 12/06/2020 01/20/2021 1 1 Question Answer Please select the performing region: [facility] [[id number]] Please select the performing department: [facility] [[id number]] To provider: ARCENIO SANDOVAL [[id number]] # of visits: 1 Comments Incidental finding on LDCT lung screening---->severe coronary artery calcification. Reason for Visit * Reason Onset Date Comments referral for Nylon Machine Operator 06/21/2020 Encounter Details Date Type Department Care Team (Late st Contact Info) Description 06/21/2020 Telephone [facility] Medical [facility] Family Medicine [address] [facility] [address] [place] [address] Gabi Victoria PA [address] [place] [address] referral for Nylon Machine Operator Social History Tobacco Use Types Packs/Day Years Used Date Smoking Tobacco: Former Cigarettes Q uit: 04/09/2020 Smokeless Tobacco: Never Alcohol Use Standard Drinks/Week Comments Yes 0 (1 standard drink = 0.6 oz pur e alcohol) Rarely PHQ-2 Answer Date Recorded PHQ-2 Total Score (If total score is 3 or more points, staff should administer the PHQ-9) 6 01/05/2020 Comments Unknown Sex and Gender Information Value Date Recorded Sex Assigned at Not on file 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 * Telephone Encounter - Deborah Hilliard - 06/21/2020 12:24 PM CDT Patient called in to check on the referral for cardio. Looked in referrals and did not see one for cardio. Patient would like to go to someone at [facility]. Once referral is placed I'll get referral and information faxed over and inform patient documented in this encounter Plan of Treatment Scheduled Referrals Name Type Priority Associated Diagnoses Orde r Schedule Ambulatory referral to Cardiology Outpatient Referral Routine Coronary artery calcification seen on CT scan Expected: 07/05/2020 (Approximate), Expires: 06/21/2021 documented as of this encounter Visit Diagnoses Diagnosis Coronary artery calcification seen on CT scan- Primary documented in this encounter Care Teams Breeding Manager Relationship Specialty Start Date End Date Gabi Victoria PA [address] [facility] [address] [place] [address] PCP - General Internal Medicine 02/19/19 documented as of this encounter
--- OUTSIDE RECORDS SUMMARY | 2024-11-08 14:01 | XMS_ITS | Encounter Summary ---
Author Organization [facility] Address [address] [facility] [address] [place] [address] Care Team Providers Care Academic Associate Name Role Phone Gabi Victoria Primary Care Provider +1- [phone] Encounter Details Date Type Department Care Team (Late st Contact Info) Description 01/18/[address] 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 Gender Identity Not on file Sexual Orientation Not on file Occupation Industry Job Start Date Job End Date Retired Not on file Not on file Not on file documented as of this encounter Miscellaneous Notes * Telephone Encounter - Joan Rao MA - 01/18/2021 10:55 AM CST Called patient and informed her of her CT at [facility] January at 8:30 am OSOFT DYNAMICS AX CONSULTANT documented in this encounter Plan of Treatment Not on file documented as of this encounter Visit Diagnoses Not on filedocumented in this encounter Care Teams Academic Associate Relationship Specialty Start Date End Date Gabi Victoria PA [address] [facility] [address] [place] [address] PCP - General Internal Medicine 02/19/19 documented as of this encounter
--- OUTSIDE RECORDS SUMMARY | 2024-11-08 14:01 | XMS_ITS | Encounter Summary ---
Author Organization [facility] Address [address] [place] [address] Care Team Providers Care Correctional Captain Name Role Phone Gabi Victoria Primary Care Provider [phone] Encounter Details Date Type Department Care Team (Late st Contact Info) Description 02/25/2021 1:30 PM CDT Office Visit [facility] Cardiology [address] [facility] [address] [place] [address] Gilda Beach, PITO [address] [facility] [address] [place] [address] Coronary artery calcification seen on CT scan (Primary Dx); Snoring Social History Tobacco Use Types Packs/Day Years [...] on file 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 Gender Identity Not on file Sexual Orientation Not on file Occupation Industry Job Start Date Job End Date Retired Not on file Not on file Not on file documented as of this encounter Last Filed Vital Signs Vital Sign Reading Time Taken Comments Blood Pressure 120/74 02/25/2021 1:25 PM CDT Pulse 73 02/25/2021 1:25 PM CDT Temperature - - Respiratory Rate - - Oxygen Saturation 98% 02/25/2021 1:25 PM CDT Inhaled Oxygen Concentration - - Weight 66.2 kg (146 lb) 02/25/2021 1:25 PM CDT Height 157.5 cm (5' 2 ) 02/25/2021 1:25 PM CDT Body Mass Index 26.7 02/25/2021 1:25 PM CDT documented in this encounter Progress Notes * Gilda Beach NP - 02/25/2021 1:30 PM CDT Images from the original note were not included. [facility] Cardiology [address] [place] [address] Date of Visit: 02/25/2021 Patient ID: Ani Ortiz 1950 Chief Complaint: Ani Ortiz is a 70 y.o. female who is a newly established patient of Dr. Lee returning the office for follow-up after she had a stress echo and labs. History of Present Illness: Ani Ortiz is a 70 y.o. female whom I was kindly asked to see by LUIS ARMANDO Victoria for my advice and opinion regarding her coronary artery calcification, in consultation. ?? 11/24/2020 Initial Office Consultation with Rosa: Coronary artery calcification was incidentally noted on a chest CT scan. No h/o heart disease. Taking Crestor currently 20 mg daily for 20 years.Walks regularly outside, 10,000 steps/day in [facility]. No trouble walking up steps. No chest/arm/shoulder/back/neck pain/pressure/contriction. Resumed smoking 1979. Quit smoking 48 y.o. and started vapping, resumed smoking for a year recently. No HTN or DM ?? Juan José Victoria's office note from 05/31/2020 was reviewed. Patient has a history of current smoking, depression, and anxiety. 12/2019 CT lung screening showed no malignancy but moderate to severe coronary artery calcifications Labs reviewed: 12/30/2019 cholesterol 164, LDL 93 EKG today shows NSR rate 74, RBBB, LAD, no ischemia. 02/25/2021 OV with WIND COMMISSIONING TECHNICIAN C Baylee: She returns for follow-up after [...] and does not need to take naps. ?? 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 , 2 daughters 1 son. Lives with her mother. ?? Records that I personally reviewed on the day of this visit include: (the interpretation is outlined in the HPI above) 11/24/[address] Lee, 12/10/2020 labs and stress echo report I have also reviewed: allergies, current medications, past family history, past medical history, past social history, past surgical history and problem list Review of Systems Constitution: Negative for diaphoresis, fever, malaise/fatigue, weight gain and weight loss. HENT: Negative for hearing loss. Eyes: Negative for visual disturbance. Cardiovascular: Negative for chest pain, claudication, dyspnea on exertion, leg swelling, orthopnea, palpitations, paroxysmal nocturnal dyspnea and syncope. Respiratory: Positive for snoring. Negative for cough, hemoptysis, shortness of breath and wheezing. Hematologic/Lymphatic: Does not bruise/bleed easily. Skin: Negative for poor wound healing and rash. Musculoskeletal: Positive for joint pain. Negative for myalgias. Gastrointestinal: Negative for heartburn, nausea and vomiting. Genitourinary: Negative for hematuria. Neurological: Negative for dizziness, headaches and light-headedness. Psychiatric/Behavioral: Positive for depression. The patient is not nervous/anxious. Vital Signs: BP 120/74 (BP Location: Right arm, Patient Position: Sitting) Pulse 73 Ht 157.5 cm (5' 2 ) Wt66.2 kg (146 lb) SpO2 98% BMI 26.70 kg/m?? Physical Exam Constitutional: She is oriented to person, place, and time. She appears well- developed and well-nourished. No distress. HENT: Head: Normocephalic and atraumatic. Nose: Nose normal. Wearing a mask Eyes: Pupils are equal, round, and reactive to light. Conjunctivae and EOM are normal. No scleral icterus. Neck: No JVD present. Carotid bruit is not present. No tracheal deviation present. Cardiovascular: Normal rate, regular rhythm and normal heart sounds. No murmur heard. Pulses: Posterior tibial pulses are 2+ on the right side and 2+ on the left side. Pulmonary/Chest: Effort normal and breath sounds normal. No respiratory distress. Abdominal: Soft. Bowel sounds are normal. There is no abdominal tenderness. Musculoskeletal: General: No edema. Cervical back: Normal range of motion. Neurological: She is alert and oriented to person, place, and time. Skin: Skin is warm and dry. Psychiatric: She has a normal mood and affect. Allergies Allergen Reactions ??? Cephalosporins Rash ??? Cephalexin Unknown ??? Erythromycin Unknown ??? Penicillin V Potassium Unknown ??? Shellfish Unknown Current Outpatient Medications: ??? aspirin 81 mg chewable tablet, Take 1 tablet (81 mg total) by mouth daily, Disp: 30 tablet, Rfl: 11 ??? buPROPion XL (WELLBUTRIN XL) 300 mg 24 hr tablet, Take 1 tablet (300 mg total) by mouth every morning, Disp: 90 tablet, Rfl: 1 ??? busPIRone (BUSPAR) 15 mg tablet, Take 1 tablet (15 mg total) by mouth 3 (three) times a day, Disp: 270 tablet, Rfl: 1 ??? clonazePAM (KlonoPIN) 1 mg tablet, Take 1 tablet (1 mg total) by mouth every 8 (eight) hours asneeded for anxiety, Disp: 30 tablet, Rfl: 0 ??? cranberry 400 mg capsule, Take by mouth, Disp: , Rfl: ??? cyanocobalamin (vitamin B-12) 100 mcg tablet, Take 100 mcg by mouth daily, Disp: , Rfl: ??? FLUoxetine (PROzac) 40 mg capsule, Take 1 capsule (40 mg total) by mouth daily STOP the Cymbalta. Do not take together, Disp: 90 capsule, Rfl: 2 ??? Lactobac no.41/Bifidobact no.7 (PROBIOTIC-10 ORAL), Take by mouth, Disp: , Rfl: ??? rosuvastatin (CRESTOR) 40 mg tablet, Take 1 tablet (40 mg total) by mouth daily, Disp: 90 tablet, Rfl: 3 ??? valACYclovir (VALTREX) 1 gram tablet, as needed , Disp: , Rfl: 1 ??? zolpidem (AMBIEN) 10 mg tablet, Take 1 tablet (10 mg total) by mouth nightly as needed for sleep, Disp: 90 tablet, Rfl: 0 ??? vit D3-vit [id number] [id number] gegl-dtc-zt-mg tablet, Take 50 mcg by mouth, Disp: ,Rfl: Lab Results Component Value Date POTASSIUM 4.5 12/30/2019 BUNSER 13 12/30/2019 CREATININE 1.09 (H) 12/30/2019 CHOL 164 12/30/2019 TRIG 133 12/30/2019 LDL 93 12/30/2019 HDL 48 (L) 12/30/2019 Assessment: Diagnoses and all orders for this visit: Coronary artery calcification seen on CT scan (Primary) Snoring Plan/Recommendations: She was referred to Dr. Lee a couple of months ago for evaluation of coronary artery calcifications seen on CT scan. Her stress echo was unremarkable. She is tolerating aspirin and statin for wrist reduction and her LDL is at goal. I advised her to continue her medical therapy along with heart healthy lifestyle which includes maintaining healthy body weight, increased physical activity, heart healthy diet, continued avoidance of tobacco. We discussed her complaint of snoring, but she appears to have no other risk factors for sleep apnea and therefore we will not pursue a sleep study at this time. I suggested she could try the nasal strips to see if this would help her snoring. Return for annual follow-up with Dr. Lee next year. Call sooner with any questions or concerns. Patient agreed to this plan. KENDRA Knutson- Nurse Practitioner with [facility] This note is dictated and transcribed using [employer] Software. Ballet Soloist variancesmay occur. Despite proofreading, typographical errors may occur. documented in this encounter Plan of Treatment Not on file documented as of this encounter Visit Diagnoses Diagnosis Coronary artery calcification seen on CT scan- Primary Snoring Other dyspnea and respiratory abnormality documented in this encounter Historical Medications * This list may reflect changes made after this encounter. cyanocobalamin (Vitamin B-12) 100 mcg tabletIndications :Prevention of Vitamin B12 Deficiency Take 1 tablet (100 mcg total) by mouth daily cranberry 400 mg capsule Take by mouth 06/17/2024 Lactobac no.41/Bifidobact no.7 (PROBIOTIC-10 ORAL) Take by mouth 08/23/2021 added in this encounter Care Teams Correctional Captain Relationship Specialty Start Date End Date Gabi Victoria PA [address] [facility] [address] [place] [address] PCP - General Internal Medicine 02/19/19 documented as of this encounter
--- OUTSIDE RECORDS SUMMARY | 2024-11-08 14:01 | XMS_ITS | Encounter Summary ---
Author Organization [facility] Address [address] [facility] [address] [place] [address] Care Team Providers Care Improvement Intern Name Role Phone Gabi Victoria Primary Care Provider +1- [phone] Reason for Referral * Diagnostic Imaging (Routine) - Closed Specialty Diagnoses / Procedures Referred By Hiram t Referred To Contact Diagnoses Former smoker Procedures CT Lung Cancer Screening Gabi Victoria PA [address] [place] [address] Phone: tel: fax: [address] [place] [id number] Phone: tel: Referral ID Status Reason Start Date Expiration Date Visits Re quested Visits Authorized [id number] Closed 01/14/2021 02/13/2022 1 1 ON TACKER * Diagnostic Imaging (Routine) - Closed Specialty Diagnoses / Procedures Referred By Contac t Referred To Contact Diagnoses Breast cancer screening by mammogram Procedures Screening Mammogram Bilateral W Damien Gabi Victoria PA [address] [place] [address] Phone: tel: fax: Unknown Place of Service fax: Referral ID Status Reason Start Date Expiration Date Visits Re quested Visits Authorized [id number] Closed 01/13/2021 02/12/2022 1 1 ON TACKER Reason for Visit * Reason Comments Medicare Wellness Encounter Details Date Type Department Care Team (Latest Contact Info) Description 01/13/2021 9:00 AM BUTTON TACKER Office Visit [facility] Family Medicine [address] [place] [id number] Gabi Victoria PA [address] [place] [address] Medicare annual wellness visit, subsequent (Primary Dx); Coronary artery calcification seen on CT scan; RBBB; Stage 3a chronic kidney disease; Osteopenia of left hip; Mixed hyperlipidemia; Anxiety; Former smoker; History of colon polyps; Moderate episode of recurrent major depressive disorder (CMS/HCC); Other insomnia; BMI 25.0-25.9,adult; Breast cancer screening by mammogram Social History Tobacco Use Types Packs/Day Years [...] on file Legal Sex Female 12:08 AM BUTTON TACKER Gender Identity Not on file Sexual Orientation Not on file Occupation Industry Job Start Date Job End Date Retired Not on file Not on file Not on file documented as of this encounter Last Filed Vital Signs Vital Sign Reading Time Taken Comments Blood Pressure 100/60 01/13/2021 9:19 AM BUTTON TACKER Pulse 69 01/13/2021 9:19 AM BUTTON TACKER Temperature 36.2 ??C (97.1 ??F) 01/13/2021 9:19 AM CS T Respiratory Rate - - Oxygen Saturation 97% 01/13/2021 9:19 AM BUTTON TACKER Inhaled Oxygen Concentration - - Weight 63.9 kg (140 lb 14.4 oz) 01/13/2021 9:19 AM BUTTON TACKER Height 157.5 cm (5' 2 ) 01/13/2021 9:19 AM BUTTON TACKER Body Mass Index 25.77 01/13/2021 9:19 AM BUTTON TACKER documented in this encounter Ordered Prescriptions Prescription Sig Dispense Quantity Refills Last Filled Start Date End Date zolpidem (AMBIEN) 10 mg tablet Take 1 tablet (10 mg total) by mouth nightly as needed for sleep 90 tablet 01/13/2021 1 clonazePAM (KlonoPIN) 1 mg tabletIndications: Anxiety Take 1 tablet (1 mg total) by mouth every 8 (eight) hours as needed for anxiety 30 tablet 01/13/2021 1 FLUoxetine (PROzac) 40 mg capsule Take 1 capsule (40 mg total) by mouth daily STOP the Cymbalta. Do not take together 90 capsule 2 01/13/2021 1 busPIRone (BUSPAR) 15 mg tabletIndications: Generalized Anxiety Disorder Take 1 tablet (15 mg total) by mouth 3 (three) times a day 270 tablet 1 01/13/2021 1 buPROPion XL (WELLBUTRIN XL) 300 mg 24 hr tabletIndications: Anxiety Take 1 tablet (300 mg total) by mouth every morning 90 tablet 1 01/13/2021 2 documented in this encounter Progress Notes * Gabi Victoria PA - 01/13/2021 9:00 AM CST Images from the original note were not included. Subjective/Objective Patient ID: Ani Ortiz is a 70 y.o. female. Chief Complaint Medicare Wellness HPI Patient presents for MWE and followup chronic concerns. Depression - Prozac, wellbutrin, buspar and klonipin sparingly. Requests #30 klonipin to use one daily Smoker - stopped a few months ago. wants a gid every day LDCT due to repeat 01/09/2021 HLD - crestor daily Insomnia - Ambien Patient is aware of the warning related to this medication and her age but prefers to continue it despite the warnings. Moderate to severe amount of coronary calcifications noted on LDCT done 12/2019. Referred to Cardio Reviewed Dr. Hwang's Note. Summary below: ASA 81 added Crestor increased to 40mg daily Stress ECHO reviewed from 12/10/2020: Impression:: Normal hemodynamic response to exercise. No significant exercise induced arrhythmias. No exercise induced chest pain. No Echocardiographic evidence of ischemia. Non-diagnostic exercise induced ST-T changes. Reduced functional capacity. Pneumonia vaccines - UTD Colonoscopy - 05/2019--->2023 DXA - 09/2019-->09/2021 Mamm - 09/2019 LDCT 01/09/2020 FLU - UTD COVID - #1 Pfizer done. Review of Systems Constitutional: Negative for fever. HENT: Negative for congestion. Respiratory: Negative for shortness of breath. Cardiovascular: Negative for chest pain. Gastrointestinal: Negative for constipation and diarrhea. Vitals: 01/13/21 0919 BP: 100/60 BP Location: Left arm Patient Position: Sitting Pulse: 69 Temp: 36.2 ??C (97.1 ??F) TempSrc: Temporal SpO2: 97% Weight: 63.9 kg (140 lb 14.4 oz) Height: 157.5 cm (5' 2 ) Physical Exam Vitals and nursing note reviewed. Constitutional: Appearance: She is well-developed. HENT: Head: Normocephalic and atraumatic. Eyes: Comments: Pupils are equal Cardiovascular: Rate and Rhythm: Normal rate and regular rhythm. Heart sounds: No murmur. Pulmonary: Effort: Pulmonary effort is normal. Breath [...] Wellness Documentation is completed within the chart Coronary artery calcification seen on CT scan (I25.10) Assessment & Plan: Referred to Cardio Dr. Hwang 11/2020 Crestor increased to 40mg to get LDL below 70 [id number] started Stress ECHO appears normal. Continue per Cardio Dr. Hwang RBBB (I45.10) Assessment & Plan: Per Cardio note may monitor Stage 3a chronic kidney disease (N18.31) Assessment & Plan: Avoid nephrotoxic drugs including NSAIDs. Monitor labs. Osteopenia of left hip (M85.852) Assessment & Plan: DXA due 09/2021 Calcium and vit d Mixed hyperlipidemia (E78.2) Assessment & Plan: Encouraged patient to follow fat/low chol diet like the Mediterranean diet. Increase good fats inthe diet. Increase exercise. Monitor labs as needed. Continue crestor Anxiety (F41.9) Assessment & Plan: Continue Prozac, wellbutrin, buspar and klonipin sparingly Former smoker (Z87.891) Assessment & Plan: Due for repeat LDCT after 01/09/2021 History of colon polyps (Z86.010) Assessment & Plan: Due to repeat colonoscopy 2023 Moderate episode of recurrent major depressive disorder (CMS/HCC) (F33.1) Assessment & Plan: See anxiety Other insomnia (G47.09) Assessment & Plan: Continue Ambien. Patient is aware of the warning with her age and this medication. She desires to continue it. BMI 25.0-25.9,adult (Z68.25) Assessment & Plan: Weight/BMI is in healthy range. Continue healthy lifestyle to maintain. MEDICARE ANNUAL WELLNESS VISIT Ani Ortiz Medicare Health Risk Assessment Basic Information In general, would you say your health is: Good Do you have an Advanced Directive (Living Will) and/or Durable Power of Pediatrician Managing Partner?: Yes - Please bring a copy to your next appointment Do you have trouble hearing the television [...] Chronic kidney disease (CKD), stage III (moderate) ??? Cough ??? Osteopenia of left hip ??? Bilateral thumb pain ??? Moderate episode of recurrent major depressive disorder (CMS/HCC) ??? Coronary artery calcification seen on CT scan ??? Former smoker ??? RBBB ??? Medicare annual wellness visit, subsequent ??? BMI 25.0-25.9,adult Past Medical History: Diagnosis Date ??? Allergic rhinitis ??? COPD (chronic obstructive pulmonary disease) (CMS/HCC) ??? Coronary artery calcification ??? Depression Suicide [...] Cigarettes, Vaping Quit date: 04/09/2020 Years since quittin.7 ??? Smokeless tobacco: Never Used Substance and Sexual Activity ??? Alcohol use: Yes Comment: Rarely ??? Drug use: Never ??? Sexual activity: Not on file Other Topics Concern ??? Not on file Social History Narrative ??? Not on file Social Determinants of Health Financial Resource Strain: ??? Difficulty of Paying Living Expenses: Food Insecurity: ??? Worried About Running Out of Food in the Last Year: ??? Ran Out of Food in the Last Year: Transportation Needs: ??? Lack of Transportation (Medical): ??? Lack of Transportation (Non-Medical): Physical Activity: ??? Days of Exercise per Week: ??? Minutes of Exercise per Session: Stress: ??? Feeling of Stress : Social Connections: ??? Frequency of Communication with Friends and Family: ??? Frequency of Social Gatherings with Friends and Family: ??? Attends [employer] Services: ??? Active Member of Clubs or Organizations: ??? Attends Club or Organization Meetings: ??? Marital Status: Intimate Partner Violence: ??? Fear of Current or Ex-Partner: ??? Emotionally Abused: ??? Physically Abused: ??? Sexually Abused: Allergies: Allergies Allergen Reactions ??? Cephalosporins Rash ??? Cephalexin Unknown ??? Erythromycin Unknown ??? Penicillin V Potassium Unknown ??? Shellfish Unknown Medications: Current Outpatient Medications: ??? aspirin 81 mg [...] 8 (eight) hours asneeded for anxiety, Disp: 20 tablet, Rfl: 0 ??? FLUoxetine (PROzac) 40 mg capsule, Take 1 capsule (40 mg total) by mouth daily STOP the Cymbalta. Do not take together, Disp: 90 capsule, Rfl: 2 ??? rosuvastatin (CRESTOR) 40 mg tablet, Take 1 tablet (40 mg total) by mouth daily, Disp: 90 tablet, Rfl: 3 ??? valACYclovir (VALTREX) 1 gram tablet, , Disp: , Rfl: 1 ??? vit D3-vit Q-hrfcmabyc-qabm [phone] nzqb-hcy-lm-mg tablet, Take 50 mcg by mouth, Disp: ,Rfl: ??? zolpidem (AMBIEN) 10 mg tablet, Take 1 tablet (10 mg total) by mouth nightly as needed for sleep, Disp: 90 tablet, Rfl: 0 Depression Screen: PHQ Screening [...] Down, Depressed, or Hopeless: Not at all Care Team Providers: Patient Care Team: Gabi Victoria PA as PCP - General (Internal Medicine) Primary Pharmacy/DME suppliers: [id number] - [place], [place] - [address] [facility] [facility] [address] [facility] [phone] Detection of Cognitive Impairment: The patient does not have cognitive impairment based on direct observation, discussion with patientor family, or review of medical records. Health Maintenance: Health Maintenance Topics with due status: Overdue Topic Date Due Hepatitis C Screening Never done Zoster Vaccines Never done Breast Cancer Screening-Mammogram 09/30/2020 Lung Cancer Screening 01/09/2021 Health Maintenance Topics with due status: Due On Topic Date Due Regular Well Visit/Exam 01/05/2021 Health Maintenance Topics with due status: Not Due Topic Last Completion Date Colon Cancer Screening-Colonoscopy 06/02/2019 Osteoporosis Screening-Bone Density Scan 09/30/2019 DTaP/Tdap/Td Vaccine 09/23/2020 Fall Risk Assessment 01/13/2021 Depression Screening-PHQ 01/13/2021 Health Maintenance Topics with due status: Completed Topic Last Completion Date Pneumococcal (PCV13 & PPSV23) 65+ yrs 08/19/2020 Influenza Vaccine 08/19/2020 Counseling and Referral of Preventative Services: Lifestyle Recommendations Increase Physical Activity, Stop Using Tobacco, Reduce Weight and ImproveDiet Advanced Directive Durable Power of Pediatrician Managing Partner: Discussed Today Living Will: Discussed Today Patient [...] update and summary of today's office visit. Gabi Victoria PA-C Cosigned by Herrera Sidhu MD at 01/16/2021 8:25 PM BUTTON TACKER ON TACKER ON TACKER documented in this encounter Miscellaneous Notes * Assessment & Plan Note - Robi Castro MA - 01/13/2021 9:21 AM BUTTON TACKER Associated Problem(s): BMI 25.0-25.9,adult (Resolved 07/19/2021) Weight/BMI is in healthy range. Continue healthy lifestyle to maintain. ON TACKER * Assessment & Plan Note - Gabi Victoria PA - 01/12/2021 9:53 PM BUTTON TACKER Associated Problem(s): Other insomnia Continue Ambien. Patient is aware of the warning with her age and this medication. She desires to continue it. ON TACKER * Assessment & Plan Note - Gabi Victoria PA - 01/12/2021 9:53 PM BUTTON TACKER Associated Problem(s): Moderate episode of recurrent major depressive disorder (HCC) See anxiety ON TACKER * Assessment & Plan Note - Gabi Victoria PA - 01/12/2021 9:53 PM BUTTON TACKER Associated Problem(s): Medicare annual wellness visit, subsequent (Resolved 08/23/2022) Encouraged healthy lifestyle, good nutrition and exercise. Encouraged Calcium and Vitamin D and weight bearing exercise for bone health. Reviewed immunizations. Reviewed age appropirate screenings. Medicare Wellness Documentation is completed within the chart ON TACKER * Assessment & Plan Note - Gabi Victoria PA - 01/12/2021 9:52 PM BUTTON TACKER Associated Problem(s): History of colon polyps Due to repeat colonoscopy 2023 ON TACKER * Assessment & Plan Note - Gabi Victoria PA - 01/12/2021 9:52 PM BUTTON TACKER Associated Problem(s): Former smoker Due for repeat LDCT after 01/09/2021 ON TACKER * Assessment & Plan Note - Gabi Victoria PA - 01/12/2021 9:52 PM BUTTON TACKER Associated Problem(s): Anxiety Continue Prozac, wellbutrin, buspar and klonipin sparingly ON TACKER * Assessment & Plan Note - Gabi Victoria PA - 01/12/2021 9:52 PM BUTTON TACKER Associated Problem(s): Mixed hyperlipidemia Encouraged patient to follow fat/low chol diet like the Mediterranean diet. Increase good fats inthe diet. Increase exercise. Monitor labs as needed. Continue crestor ON TACKER * Assessment & Plan Note - Gabi Victoria PA - 01/12/2021 9:51 PM BUTTON TACKER Associated Problem(s): Osteopenia of left hip DXA due 09/2021 Calcium and vit d ON TACKER * Assessment & Plan Note - Gabi Victoria PA - 01/12/2021 9:51 PM BUTTON TACKER Associated Problem(s): Stage 3a chronic kidney disease (HCC) Avoid nephrotoxic drugs including NSAIDs. Monitor labs. ON TACKER * Assessment & Plan Note - Gabi Victoria PA - 01/12/2021 9:51 PM BUTTON TACKER Associated Problem(s): RBBB Per Cardio note may monitor ON TACKER * Assessment & Plan Note - Gabi Victoria PA - 01/12/2021 9:49 PM BUTTON TACKER Associated Problem(s): Coronary artery calcification seen on CT scan Referred to Cardio Dr. Hwang 11/2020 Crestor increased to 40mg to get LDL below 70 [id number] started Stress ECHO appears normal. Continue per Cardio Dr. Hwang ON TACKER documented in this encounter Plan of Treatment Scheduled Orders Name Type Priority Associated Diagnoses Orde r Schedule Screening Mammogram Bilateral W Damien Imaging Schedule Routine, Read Routine (OP Routine) Breast cancer screening by mammogram Expected: 01/13/2021, Expires: 03/15/2022 documented as of this encounter Procedures Procedure Name Priority Date/Time Associated Diagnosis Comments CT LUNG CANCER SCREENING Schedule Routine, Read Routine (OP Routine) 01/20/2021 Former smoker documented in this encounter Results * CT Lung Cancer Screening (01/20/2021) Anatomical Region Laterality Modality Chest N/A Computed Tomogra phy us Gabi DURÁN IMG CT PROCEDURES Final Re sult documented in this encounter Visit Diagnoses Diagnosis Medicare annual wellness visit, subsequent- Primary Coronary artery calcification seen on CT scan RBBB Stage 3a chronic kidney disease (HCC) Osteopenia of left hip Mixed hyperlipidemia Anxiety Anxiety state, unspecified Former smoker Personal history of tobacco use, presenting hazards to health History of colon polyps Moderate episode of recurrent major depressive disorder (HCC) Other insomnia BMI 25.0-25.9,adult Breast cancer screening by mammogram documented in this encounter Discontinued Medications Medication Sig Discontinue Reason Start Date End Da te FLUoxetine (PROzac) 40 mg capsule Take 1 capsule (40 mg total) by mouth daily STOP the Cymbalta. Do not take together Reorder 05/31/2020 01/13/2021 busPIRone (BUSPAR) 15 mg tabletIndications:Gener alized Anxiety Disorder Take 1 tablet (15 mg total) by mouth 3 (three) times a day Reorder 05/31/2020 01/13/2021 buPROPion XL (WELLBUTRIN XL) 300 mg 24 hr tabletIndications:Anxie ty Take 1 tablet (300 mg total) by mouth every morning Reorder 10/11/2020 01/13/2021 zolpidem (AMBIEN) 10 mg tablet Take 1 tablet (10 mg total) by mouth nightly as needed for sleep Reorder 11/29/2020 01/13/2021 clonazePAM (KlonoPIN) 1 mg tabletIndications:Anxie ty Take 1 tablet (1 mg total) by mouth every 8 (eight) hours as needed for anxiety Reorder 01/03/2021 01/13/2021 documented as of this encounter Care Teams Improvement Intern Relationship Specialty Start Date End Date Gabi Victoria PA [address] [facility] [address] [place] [address] PCP - General Internal Medicine 02/19/19 documented as of this encounter
--- OUTSIDE RECORDS SUMMARY | 2024-11-08 14:01 | XMS_ITS | Encounter Summary ---
Author Organization [facility] Address [address] [place] [address] Care Team Providers Care Quill Machine Operator Name Role Phone Gabi Victoria Primary Care Provider [phone]- [phone] Encounter Details Date Type Department Care Team (Late st Contact Info) Description 12/10/2020 Orders Only [facility] Health Information Management [address] [place] [address] Scanning, Provider Social History Tobacco Use Types [...] on file Legal Sex Female 12:08 AM LOAN ASSOCIATE Gender Identity Not on file Sexual Orientation Not on file Occupation Industry Job Start Date Job End Date Retired Not on file Not on file Not on file documented as of this encounter Plan of Treatment Not on file documented as of this encounter Procedures Procedure Name Priority Date/Time Associated Diagnosis Comments CARDIOLOGY DOCUMENT SCAN 12/10/2020 documented in this encounter Results * SCAN - CARDIOLOGY (12/10/2020) Anatomical Region Laterality Modality Other us Provider Scanning CV CARDIAC SERVICES PROCEDURES Final Result documented in this encounter Visit Diagnoses Not on filedocumented in this encounter Care Teams Quill Machine Operator Relationship Specialty Start Date End Date Gabi Victoria PA [address] [facility] [address] [place] [address] PCP - General Internal Medicine 02/19/19 documented as of this encounter
--- OUTSIDE RECORDS SUMMARY | 2024-11-08 14:01 | XMS_ITS | Encounter Summary ---
Author Organization [facility] Address [address] [place] [address] Care Team Providers Care Supervisor Nuclear Medicine Name Role Phone Gabi Victoria Primary Care Provider +1- [phone] Encounter Details Date Type Department Care Team (Late st Contact Info) Description 04/04/2021 Orders Only [facility] Family Medicine [address] [place] [address] Gabi Victoria PA [address] [place] [address] Social History Tobacco Use Types [...] on file Legal Sex Female 12:08 AM PREMIUM REPRESENTATIVE Gender Identity Not on file Sexual Orientation Not on file Occupation Industry Job Start Date Job End Date Retired Not on file Not on file Not on file documented as of this encounter Plan of Treatment Not on file documented as of this encounter Visit Diagnoses Not on filedocumented in this encounter Care Teams Supervisor Nuclear Medicine Relationship Specialty Start Date End Date Gabi Victoria PA [address] [facility] [address] [place] [address] PCP - General Internal Medicine 02/19/19 documented as of this encounter
--- OUTSIDE RECORDS SUMMARY | 2024-11-08 14:01 | XMS_ITS | Encounter Summary ---
Author Organization [facility] Address [address] [place] [address] Care Team Providers Care Chief Relay Tester Name Role Phone Gabi Victoria Primary Care Provider +1- [phone] Encounter Details Date Type Department Care Team (Late st Contact Info) Description 12/06/2021 Orders Only [facility] Medical [facility] Family Medicine [address] [place] [address] Gabi Victoria PA [address] [place] [address] Mixed hyperlipidemia (Primary Dx); Fatigue, unspecified type Social History Tobacco Use Types Packs/Day Years [...] file Legal Sex Female 12:08 AM HEALTH RESEARCHER Gender Identity Not on file Sexual Orientation Not on file Occupation Industry Job Start Date Job End Date Retired Not on file Not on file Not on file documented as of this encounter Plan of Treatment Scheduled Orders Name Type Priority Associated Diagnoses Orde r Schedule Lipid panel Lab Routine Mixed hyperlipidemia Expected: 12/06/2022, Expires: 12/06/2022 documented as of this encounter Procedures Procedure Name Priority Date/Time Associated Diagnosis Comments TSH Routine 01/11/2022 10:09 AM HEALTH RESEARCHER Fatigue, unspecified type LIPID PANEL Routine 01/11/2022 10:09 AM HEALTH RESEARCHER COMPREHENSIVE METABOLIC PANEL Routine 01/11/2022 10:09 AM HEALTH RESEARCHER Fatigue, unspecified type documented in this encounter Results * Lipid panel (01/11/2022 10:09 AM HEALTH RESEARCHER) Cholesterol 149 <200 mg/dL [facility] HDL 63 > OR = 50 mg/dL [facility] Triglycerides 90 <150 mg/dL [facility] LDL 69 mg/dL (calc) [facility] Comment: Reference range: <100 Desirable range <100 mg/dL for primary prevention; ?? <70 mg/dL for patients with CHD or diabetic patients with > or = 2 CHD risk factors. LDL-C is now calculated using the Curt-Deshpande calculation, which is a validated novel method providing better accuracy than the Friedewald equation in the estimation of LDL-C. Curt SS et al. NESS. 2013;310(19): 5517-1586 (http://education.[employer]ri[employer]/faq/EKF228) Chol/HDL ratio 2.4 <5.0 (calc) [facility] Non-HDL, (LDL+VLDL) 86 <130 mg/dL (calc) [facility] Comment: For patients with diabetes plus 1 major ASCVD risk factor, treating to a non-HDL-C goal of <100 mg/dL (LDL-C of <70 mg/dL) is considered a therapeutic option. 01/11/2022 10:0 9 AM HEALTH RESEARCHER 01/11/2022 10:11 AM HEALTH RESEARCHER Gabi DURÁN LAB BLOOD ORDERABLES Final Result Performing Organization Address [facility]/ZIP Co de Phone Number QUEST [facility] [address] [place] [address] * TSH (01/11/2022 10:09 AM HEALTH RESEARCHER) TSH 1.62 0.40 - 4.50 mIU/L [facility] Blood specimen (specimen) 01/11/2022 10:09 AM HEALTH RESEARCHER 01/11/2022 10:11 AM HEALTH RESEARCHER Gabi DURÁN LAB BLOOD ORDERABLES Final Result Performing Organization Address [facility] de Phone Number [facility]ST [facility] [address] [place] [address] * (ABNORMAL) Comprehensive metabolic panel (01/11/2022 10:09 AM HEALTH RESEARCHER) Pathologist [facility] Glucose 76 65 - 99 mg/dL [facility] Comment: ? Fasting reference interval BUN 16 7 - 25 mg/dL [facility] Creatinine 1.14(H) 0.50 - 0.99 mg/dL [facility] Comment: For patients >49 years of age, the reference limit for Creatinine is approximately 13% higher for people identified as -[place]. eGFR NON-AFR. [place] 49(L) > OR = 60 mL/min/1. 73m2 [facility] EGFR 57(L) > OR = 60 mL/min/1. 73m2 [facility] BUN/creat ratio 14 6 - 22 (calc) [facility] Sodium 141 135 - 146 mmol/L [facility] Potassium, pl 4.1 3.5 - 5.3 mmol/L [facility] Chloride 107 98 - 110 mmol/L [facility] CO2 26 20 - 32 mmol/L [facility] Calcium 9.5 8.6 - 10.4 mg/dL [facility] Protein, sr 6.4 6.1 - 8.1 g/dL [facility] Albumin 4.5 3.6 - 5.1 g/dL [facility] GLOBULIN 1.9 1.9 - 3.7 g/dL (calc) [facility] Alb/glob ratio 2.4 1.0 - 2.5 (calc) [facility] Bilirubin, total 0.4 0.2 - 1.2 mg/dL [facility] Alk phos 87 37 - 153 U/L [facility] AST 22 10 - 35 U/L [facility] ALT (SGPT) 22 6 - 29 U/L [facility] Blood specimen (specimen) 01/11/2022 10:09 AM HEALTH RESEARCHER 01/11/2022 10:11 AM HEALTH RESEARCHER Gabi DURÁN LAB BLOOD ORDERABLES Final Result [facility] [address] [place] [address] documented in this encounter Visit Diagnoses Diagnosis Mixed hyperlipidemia- Primary Fatigue, unspecified type documented in this encounter Care Teams Chief Relay Tester Relationship Specialty Start Date End Date Gabi Victoria PA [address] [place] [address] PCP - General Internal Medicine 02/19/19 documented as of this encounter
--- OUTSIDE RECORDS SUMMARY | 2024-11-08 14:01 | XMS_ITS | Encounter Summary ---
Author Organization 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
--- OUTSIDE RECORDS SUMMARY | 2024-11-08 14:01 | XMS_ITS | Encounter Summary ---
Author Organization [facility] Address [address] [place] [address] Care Team Providers Care Vehicle Operator Technician Name Role Phone Gabi Victoria Primary Care Provider +1- [phone] Encounter Details Date Type Department Care Team (Late st Contact Info) Description 01/09/2020 Orders Only [facility] Medical [facility] Family Medicine [address] [place] [address] Gabi Victoria PA [address] [place], [place] [id number] Cigarette smoker; Bilateral thumb pain Social History Tobacco Use Types Packs/Day Years [...] on file 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 Gender Identity Not on file Sexual Orientation Not on file Occupation Industry Job Start Date Job End Date Retired Not on file Not on file Not on file documented as of this encounter Plan of Treatment Not on file documented as of this encounter Visit Diagnoses Diagnosis Cigarette smoker Tobacco use disorder Bilateral thumb pain documented in this encounter Orders Imaging Orders Without Results Count Last Order ed Date First Ordered Date CT LUNG CANCER SCREENING 1 01/09/2020 Outpatient Referral Count Last Ordered Date Fir st Ordered Date AMB REFERRAL TO ORTHOPEDIC SURGERY 1 2019 documented in this encounter Care Teams Vehicle Operator Technician Relationship Specialty Start Date End Date Gabi Victoria PA [address] [facility] [address] [place] [address] PCP - General Internal Medicine 02/19/19 documented as of this encounter
--- OUTSIDE RECORDS SUMMARY | 2024-11-08 14:01 | XMS_ITS | Encounter Summary ---
Author Organization [facility] Address [address] [place] [address] Care Team Providers Care Sales Support Rep Name Role Phone Gabi Victoria Primary Care Provider +1- [phone] Reason for Visit * Cardiology (Routine) - Closed Specialty Diagnoses / Procedures Referred By Contac t Referred To Contact Diagnoses Coronary artery calcification seen on CT scan Procedures Echo Exercise Stress W Doppler/CF Arcenio Sandoval MD Phone: tel: fax: [facility] Referral ID Status Reason Start Date Expiration Date Visits Re quested Visits Authorized [id number] Closed 12/06/2020 01/20/2021 1 1 Encounter Details Date Type Department Care Team (Latest Contact Info) Description 12/10/2020 10:15 AM SOFTWARE SUPPORT SPECIALIST Ancillary Procedure [facility] Medical [facility] Cardiology [address] [place] [address] Coronary artery calcification seen on CT scan Social History Tobacco Use Types Packs/Day Years [...] on file Legal 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 Female 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 Gender Identity Not on file Sexual Orientation Not on file Occupation Industry Job Start Date Job End Date Retired Not on file Not on file Not on file documented as of this encounter Last Filed Vital Signs Vital Sign Reading Time Taken Comments Blood Pressure - - Pulse - - Temperature 36.3 ??C (97.3 ??F) 12/10/2020 10:[address] Respiratory Rate - - Oxygen Saturation - - Inhaled Oxygen Concentration - - Weight - - Height - - Body Mass Index - - documented in this encounter Plan of Treatment Not on file documented as of this encounter Procedures Procedure Name Priority Date/Time Associated Diagnosis Comments STRESS ECHO EXERCISE WO DOPPLER/CF WO CONTRAST Routine 12/10/2020 11:15 AM SOFTWARE SUPPORT SPECIALIST Coronary artery calcification seen on CT scan documented in this encounter Results * STRESS ECHO EXERCISE WO DOPPLER/CF WO CONTRAST (12/10/2020 11:15 AM SOFTWARE SUPPORT SPECIALIST) Anatomical Region Laterality Modality Ultrasound 12/10/2020 10:1 3 AM SOFTWARE SUPPORT SPECIALIST Narrative 12/10/2020 12:54 PM SOFTWARE SUPPORT SPECIALIST [facility] Cardiology [address] [facility] [address], [place] [address] [address], [place] [address] P:[phone] P:[phone] Echocardiographic Report Patient Name: ANI ORTIZ : 1950 Study Date: 12/10/2020 10:13:54 AM Gender: F Tech: Ref.Provider: HARPER Height(Cm): 157 BSA: 1.65 Weight(Kg): 64.41Quality: Good Order Provider: ARCENIO SANDOVAL Procedures: Stress Echo Report: Treadmill stress echocardiogram. Indications: Coronary Artery Calcification on CT, Medications: ASA, Wellbutrin, Buspar, Klonopin, Prozac, Crestor, Valtrex, Vitamin D3, Ambien, and Stress test monitored by: Sharyn Barbosa RN. Findings: Stress Echo: Protocol - Bryson Protocol. Exercise Time - 5.00 min. Baseline Heart Rate - 73. Peak Heart Rate - 132. Predicted Maximal Heart Rate - 152. 85% MPHR - 129. Baseline BP - 106/58. Peak BP - 170/62. Rate Pressure Product - 24067. METS Achieved - 7.00. Percent Predicted Maximal HR Achieved - 87 %. Interpretation Site: Exam was interpreted at [facility]. Performance: Below average exercise functional capacity. Hemodynamic Response: Normal blood pressure response. Arrhythmia: No exercise induced arrhythmias. Termination: Fatigue. Limiting Dyspnea. Resting ECG: Normal sinus rhythm RBBB. Exercise ECG: Non-diagnostic ST-T wave changes with exercise. Resting LV Function: Normal left ventricular size, normal systolic function, normal wall thickness with no segmental wall motion abnormalities at rest. Post Stress LV Function: Post exercise left ventricular global systolic contractility is hyperdynamic, no segmental wall motion abnormalities, and chamber size is smaller. Global Systolic Function is normal. Conclusions: Normal hemodynamic response to exercise. No significant exercise induced arrhythmias. No exercise induced chest pain. No Echocardiographic evidence of ischemia. Non-diagnostic exercise induced ST-T changes. Reduced functional capacity. Electronically Signed By: Bin Chawla MD 2020-12-10 12:54:31 SOFTWARE SUPPORT SPECIALIST Procedure Note Leonel Chawla MD - 12/10/2020 [facility] Cardiology [address] [facility] [address] [id number] [address], [place] [address] P:[phone] P:[phone] Echocardiographic Report Patient Name: ANI ORTIZPatient ID: [id number] : [id number] Date: 12/10/2020 10:13:54 AM Gender: FAccession #: [id number] Tech: GMRef.Provider: HARPER Height(Cm): 157BSA: 1.65 Weight(Kg): 64.41Quality: Good Order Provider: ARCENIO SANDOVAL Procedures: Stress Echo Report: Treadmill stress echocardiogram. Indications: Coronary Artery Calcification on CT, Medications: ASA, Wellbutrin, Buspar,Klonopin, Prozac, Crestor, Valtrex, Vitamin D3, Ambien, and Stress test monitoredby: Sharyn Barbosa RN. Findings: Stress Echo: Protocol - Bryson Protocol. Exercise Time - 5.00 min. Baseline Heart Rate -73. Peak Heart Rate - 132. Predicted Maximal Heart Rate - 152. 85% MPHR - 129. BaselineBP - 106/58. Peak BP - 170/62. Rate Pressure Product - 91073. METS Achieved - 7.00.Percent Predicted Maximal HR Achieved - 87 %. Interpretation Site: Exam was interpreted at [facility]. Performance: Below average exercise functional capacity. Hemodynamic Response: Normal blood pressure response. Arrhythmia: No exercise induced arrhythmias. Termination: Fatigue. Limiting Dyspnea. Resting ECG: Normal sinus rhythm RBBB. Exercise ECG: Non-diagnostic ST-T wave changes with exercise. Resting LV Function: Normal left ventricular size, normal systolic function, normal wallthickness with no segmental wall motion abnormalities at rest. Post Stress LV Function: Post exercise left ventricular global systolic contractility ishyperdynamic, no segmental wall motion abnormalities, and chamber size is smaller. GlobalSystolic Function is normal. Conclusions: Normal hemodynamic response to exercise. No significant exercise induced arrhythmias. No exercise induced chest pain. No Echocardiographic evidence of ischemia. Non-diagnostic exercise induced ST-T changes. Reduced functional capacity. Electronically Signed By: Bin Chawla MD 2020-12-10 12:54:31 SOFTWARE SUPPORT SPECIALIST Arcenio Sandoval MD CV ECHO PROCEDURES Final Re sult documented in this encounter Visit Diagnoses Diagnosis Coronary artery calcification seen on CT scan documented in this encounter Care Teams Sales Support Rep Relationship Specialty Start Date End Date Gabi Victoria PA [address] [facility] [address] [place] [address] PCP - General Internal Medicine 02/19/19 documented as of this encounter
--- OUTSIDE RECORDS SUMMARY | 2024-11-08 14:01 | XMS_ITS | Encounter Summary ---
Author Organization [facility] Address [address] [place] [address] Care Team Providers Care Sterile Instrument Technician Name Role Phone Gabi Victoria Primary Care Provider [phone]- [phone] Reason for Referral * Cardiology (Routine) - Closed Specialty Diagnoses / Procedures Referred By Hiram chance Referred To Contact Diagnoses Coronary artery calcification seen on CT scan Procedures Echo Exercise Stress W Doppler/CF Jesenia Sandoval MD Phone: tel: fax: [facility] Referral ID Status Reason Start Date Expiration Date Visits Re quested Visits Authorized [id number] Closed 12/06/2020 01/20/2021 1 1 NING SPECIALIST Reason for Visit * Reason Comments New Patient coronary artery calc ification * Consultation (Routine) - Closed Specialty Diagnoses / Procedures Referred By Hiram chance Referred To Contact Cardiology Diagnoses Coronary artery calcification seen on CT scan Gabi Victoria PA [address] [place] [address] Phone: tel: fax: Jesenia Sandoval MD [address] [facility] [address] [place] [address] Phone: tel: fax: Referral ID Status Reason Start Date Expiration Date V isits Requested Visits Authorized [id number] Closed Specialty Services Required 12/06/2020 01/20/2021 1 1 Encounter Details Date Type Department Care Team (Latest Contact Info) Description 11/24/2020 2:30 PM LEARNING SPECIALIST Office Visit [facility] Cardiology [address] [place] [address] Jesenia Sandoval MD [address] [place] [address] Coronary artery calcification seen on [...] on file Legal Sex Female 12:08 AM LEARNING SPECIALIST Gender Identity Not on file Sexual Orientation Not on file Occupation Industry Job Start Date Job End Date Retired Not on file Not on file Not on file documented as of this encounter Last Filed Vital Signs Vital Sign Reading Time Taken Comments Blood Pressure 130/72 11/24/2020 3:36 PM LEARNING SPECIALIST Pulse 75 11/24/2020 3:36 PM LEARNING SPECIALIST Temperature - - Respiratory Rate - - Oxygen Saturation 98% 11/24/2020 3:36 PM LEARNING SPECIALIST Inhaled Oxygen Concentration - - Weight 64.4 kg (142 lb) 11/24/2020 3:36 PM LEARNING SPECIALIST Height 157.5 cm (5' 2 ) 11/24/2020 3:36 PM LEARNING SPECIALIST Body Mass Index 25.97 11/24/2020 3:36 PM LEARNING SPECIALIST documented in this encounter Patient Instructions * Patient Instructions* Jesenia Sandoval MD - 11/24/2020 2:30 PM LEARNING SPECIALIST Images from the original note were not included. Coronary artery calcification tells us you have (asymptomatic) coronary artery disease -- atherosclerosis and hardening of the heart blood vessels. Recommendations: Aspirin 81 mg daily Increase the rosuvastatin/Crestor to 40 mg daily Echo treadmill test Blood tests in 2 months to see how we are doing w/ cholesterol .Patient Education Coronary Artery Disease CENTER RECEPTIONIST: Coronary artery disease (CAD) is narrowing of the arteries to your heart caused by a buildup of plaque. Plaque is made up of cholesterol and other substances. The narrowing in your arteries decreasesthe amount of blood that can flow to your heart. This causes your heart to get less oxygen. You maynot have any symptoms of CAD. It is important for you to manage CAD even if you feel well. CAD can lead to a heart attack if it is not managed. Common symptoms include the following: ?? Chest pain (angina), causing burning, squeezing, or crushing tightness in your chest ?? Pain that spreads to your neck, jaw, or shoulder blade ?? Nausea, vomiting, sweating, fainting, and hands and feet that are cold to the touch Call 911 for any of the following: ?? You have any of the following signs of a heart attack: ?? Squeezing, pressure, or pain in your chest that lasts longer than 5 minutes or returns ?? Discomfort or pain in your back, neck, jaw, stomach, or arm ?? Trouble breathing ?? Nausea or vomiting ?? Lightheadedness or a sudden cold sweat, especially with chest pain or trouble breathing Contact your healthcare provider if: ?? You have chest pain that is more frequent, or you have chest pain at rest. ?? You have questions or concerns about your condition or care. Medicines used to treat CAD: ?? Blood pressure medicines are given to lower your blood pressure. TIO inhibitors help keep your blood vessels relaxed and open to help keep blood flowing into your heart. Beta-blockers keep your heart pumping strongly and regularly so it does not work too hard to get oxygen. ?? Cholesterol medicines help lower blood cholesterol levels. ?? Nitrates , such as nitroglycerin, relax the arteries of your heart so it gets more oxygen. They help to relieve your chest pain. ?? Antiplatelets , such as aspirin, help prevent blood clots. Take your antiplatelet medicine exactly as directed. These medicines make it more likely for you to bleed or bruise. If you are told to take aspirin, do not take acetaminophen or ibuprofen instead. ?? Blood thinners keep clots from forming in your blood. Clots may cause heart attacks, strokes, ordeath. This medicine makes it more likely for you to bleed or bruise. ?? Do not take certain medicines without asking your healthcare provider first. These include NSAIDs, herbal or vitamin supplements, or hormones (estrogen or progestin). Procedures used to treat CAD: ?? Angioplasty may be done to open an artery blocked by plaque. A tube with a balloon on the end isthreaded into the blocked artery. Once the tube is in the artery, the balloon is inflated. As the balloon inflates, it presses the plaque against the artery wall to open the artery. A stent may be placed in your artery to keep it open. ?? Coronary artery bypass graft surgery (CABG) is open heart surgery. Healthcare providers take arteries or veins from other areas in your body and use them to bypass or go around the blocked arteries of your heart. Cardiac rehabilitation: Your healthcare provider may recommend that you attend cardiac rehabilitation (rehab). This is a program run by specialists who will help you safely strengthen your heart and reduce the risk for more heart disease. The plan includes exercise, relaxation, stress management, and heart- healthy nutrition. Healthcare providers will also check to make sure any medicines you are taking are working. Manage CAD to prevent a heart attack: ?? Do not smoke. Nicotine and other chemicals in cigarettes and cigars can cause heart and lung damage. Ask your healthcare provider for information if you currently smoke and need help to quit. E-cigarettes or smokeless tobacco still contain nicotine. Talk to your healthcare provider before you use these products. ?? Exercise regularly. Exercise at least 30 minutes each day, on most days of the week. Exercise helps to lower high cholesterol and high blood pressure. It can also help you maintain a healthy weight. Ask your healthcare provider about the kind of exercise you should do and how to get started. ?? Maintain a healthy weight. If you are overweight, talk to your healthcare provider about how to lose weight. A weight loss of 10% can improve your heart health. ?? Eat heart-healthy foods. Include fresh fruits and vegetables in your meal plan. Choose low-fat foods, such as skim or 1% fat milk, low-fat cheese and yogurt, fish, chicken (without skin), and leanmeats. Eat two 4-ounce servings of fish high in omega-3 fats each week, such as salmon, fresh tuna,and chu. Do not eat foods that are high in sodium, such as canned foods, potato chips, salty snacks, and cold cuts. Put less table salt on your food. ?? Limit or do not drink alcohol. A drink of alcohol is 12 ounces of beer, 5 ounces of wine, or 1??ounces of liquor. ?? Manage other health conditions. Follow your healthcare provider's advice on how to manage other conditions that can affect your heart health. These include diabetes, high blood pressure, and high cholesterol. You may need to take medicines for these conditions and make other lifestyle changes. ?? Ask if you should have a flu vaccine. The flu can be dangerous for a person who has CAD. The fluvaccine is available every year in the fall. Follow up with your healthcare provider as directed: You may need to return for other tests. You may also be referred to a cardiac surgeon. Write down your questions so you remember to ask them during your visits. ?? 2017 [employer] Information is for End User's use only and may not be sold, redistributed or otherwise used for commercial purposes. All illustrations and images included in CareNotes?? are the copyrighted property of [employer]. or [employer]. The above information is an medicaid specialist only. It is not intended as medical advice for individual conditions or treatments. Talk to your doctor, nurse or pharmacist before following any medical regimen to see if it is safe and effective for you. NING SPECIALIST documented in this encounter Ordered Prescriptions Prescription Sig Dispense Quantity Refills Last Filled Start Date End Date aspirin 81 mg chewable tabletIndications:Co ronary artery calcification seen on CT scan Take 1 tablet (81 mg total) by mouth daily 30 tablet 11 11/24/2020 rosuvastatin (CRESTOR) 40 mg tabletIndications:Co ronary artery calcification seen on CT scan,Mixed hyperlipidemia Take 1 tablet (40 mg total) by mouth daily 90 tablet 3 11/24/2020 2 documented in this encounter Progress Notes * Jesenia Sandoval MD - 11/24/2020 2:[address] [facility]iology [facility] DATE OF VISIT: 11/27/2020 DATE: 1950 CHIEF COMPLAINT Chief Complaint Patient presents with ??? New Patient coronary artery calcification HPI Ani Ortiz is a 70 y.o. female whom I was kindly asked to see by LUIS ARMANDO Victoria for my advice and opinion regarding her coronary artery calcification, in consultation. 11/24/2020 Initial Office Consultation with Rosa: Coronary artery calcification was incidentally noted on a chest CT scan. No h/o heart disease. Taking Crestor currently 20 mg daily for 20 years.Walks regularly outside, 10,000 steps/day in [facility]. No trouble walking up steps. No chest/arm/shoulder/back/neck pain/pressure/contriction. Resumed smoking 1979. Quit smoking 48 y.o. and started vapping, resumed smoking for a year recently. No HTN or DM S. Julien's office note from 05/31/2020 was reviewed. Patient has a history of current smoking, depression, and anxiety. 12/2019 CT lung screening showed no malignancy but moderate to severe coronary artery calcifications Labs reviewed: 12/30/2019 cholesterol 164, LDL 93 EKG today shows NSR rate 74, RBBB, LAD, no ischemia. 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 , 2 daughters 1 son. Lives with her mother. MEDICAL HISTORY Past Medical History: Diagnosis Date ??? Allergic rhinitis ??? COPD (chronic obstructive pulmonary disease) (CMS/HCC) ??? Coronary artery calcification ??? Depression Suicide attempt 1969 a ??? Hyperlipidemia ??? Kidney stones Social History Tobacco Use ??? Smoking status: Former Smoker Types: Cigarettes, Vaping Quit date: 04/09/2020 Years since quittin.6 ??? Smokeless tobacco: Never Used Substance Use Topics ??? Alcohol use: Yes Comment: Rarely ??? Drug use: Never Family History Problem Relation Age of Onset ??? Hyperlipidemia Mother ??? Other (Cancer, gioblastoma) Father MEDICATIONS Current Outpatient Medications: ??? buPROPion XL (WELLBUTRIN XL) 300 mg [...] Disp: , Rfl: 1 ??? vit D3-vit K-tbzlongtm-ismt [id number] dlad-cip-gj-mg tablet, Take 50 mcg by mouth, Disp: ,Rfl: ??? zolpidem (AMBIEN) 10 mg tablet, Take 1 tablet (10 mg total) by mouth nightly as needed for sleep, Disp: 90 tablet, Rfl: 0 ??? aspirin 81 mg chewable tablet, Take 1 tablet (81 mg total) by mouth daily, Disp: 30 tablet, Rfl: 11 ALLERGIES Allergies Allergen Reactions ??? Cephalosporins Rash ??? Cephalexin Unknown ??? Erythromycin Unknown ??? Penicillin V Potassium Unknown ??? Shellfish Unknown REVIEW OF SYSTEMS Review of Systems Constitution: Negative for malaise/fatigue. HENT: Negative for congestion. Eyes: Negative for visual disturbance. Cardiovascular: Negative for chest pain, dyspnea on exertion and syncope. Respiratory: Negative for shortness of breath. Hematologic/Lymphatic: Negative for bleeding problem. Gastrointestinal: Negative for abdominal pain. Genitourinary: Negative for hematuria. Neurological: Negative for dizziness. Psychiatric/Behavioral: Negative for depression. PHYSICAL EXAM Blood pressure 130/72, pulse 75, height 157.5 cm (5' 2 ), weight 64.4 kg (142 lb), SpO2 98 %. Body mass index is 25.97 kg/m??. Physical Exam Constitutional: She is oriented to person, place, and time. She appears well- developed and well-nourished. No distress. HENT: Head: Normocephalic and atraumatic. Neck: Neck supple. No thyromegaly present. Cardiovascular: Normal rate, regular rhythm and normal heart sounds. No murmur heard. Pulses: Carotid pulses are 2+ on the right side and 2+ on the left side. Dorsalis pedis pulses are 1+ on the right side and 1+ on the left side. Posterior tibial pulses are 1+ on the right side and 1+ on the left side. Pulmonary/Chest: Effort normal and breath sounds normal. No respiratory distress. She has no wheezes. She has no rales. Abdominal: Soft. She exhibits no distension. There is no hepatosplenomegaly. Musculoskeletal: General: No edema. Neurological: She is alert and oriented to person, place, and time. Skin: Skin is warm and dry. Psychiatric: She has a normal mood and affect. Her behavior is normal. LABS AND OTHER DIAGNOSTIC TESTS Lab Results Component Value Date WBC 5.8 01/03/2019 HGB 13.6 01/03/2019 HCT 40.3 01/03/2019 MCV 93.1 01/03/2019 Chemistry Component Value Date/Time SODIUM 141 12/30/2019 0000 POTASSIUM 4.5 12/30/2019 0000 CHLORIDE 105 12/30/2019 0000 CO2 29 12/30/2019 0000 BUNSER 13 12/30/2019 0000 CREATININE 1.09 (H) 12/30/2019 0000 GLUCOSE 107 (H) 12/30/2019 0000 Component Value Date/Time CALCIUM 9.9 12/30/2019 0000 ALKPHOS 91 12/30/2019 0000 AST 14 12/30/2019 0000 ALT 14 12/30/2019 0000 BILITOT 0.4 12/30/2019 0000 Lab Results Component Value Date CHOL 164 12/30/2019 CHOL 143 01/03/2019 CHOL 157 02/14/2018 Lab Results Component Value Date GLUCOSE 107 (H) 12/30/2019 CALCIUM 9.9 12/30/2019 SODIUM 141 12/30/2019 POTASSIUM 4.5 12/30/2019 CO2 29 12/30/2019 CHLORIDE 105 12/30/2019 BUNSER 13 12/30/2019 CREATININE 1.09 (H) 12/30/2019 Lab Results Component Value Date HDL 48 (L) 12/30/2019 HDL 51 01/03/2019 HDL 60 02/14/2018 LDL Date Value Ref Range Status 12/30/2019 93 mg/dL (calc) Final Comment: Reference [...] LDL-C. Curt SS et al. NESS. 2013;310(19): 7282-8037 (http://education.Allocade.Zafin/faq/PIN890) LDL-CHOLESTEROL Date Value Ref Range Status 01/03/2019 74 mg/dL (calc) Comment: Reference range: < 100 Desirable range < 100 mg/dL for primary prevention; < 70 mg/dL for patients with CHD or diabetic patients with > or = 2 CHD risk factors. LDL-C is now calculated using the Curt-Deshpande calculation, which is a validated novel method providing better accuracy than the Friedewald equation in the estimation of LDL-C. Curt SS et al. NESS. 2013;310(19): 8884-1496 (http://education.Allocade.Zafin/faq/OYN011) ] No results found for: LDLCALC Lab Results Component Value Date TRIG 133 12/30/2019 TRIG 94 01/03/2019 TRIG 104 02/14/2018 Lab Results Component Value Date CHOLHDL 3.4 12/30/2019 No results found for: INR, PROTIME ASSESSMENT Diagnoses and all orders for this visit: Coronary artery calcification seen on CT scan (Primary) - Ambulatory referral to Cardiology - Echo Exercise Stress W Doppler/CF; Future - Comprehensive metabolic panel; Future - Lipid panel; Future - aspirin 81 mg chewable tablet; Take 1 tablet (81 mg total) by mouth daily - rosuvastatin (CRESTOR) 40 mg tablet; Take 1 tablet (40 mg total) by mouth daily Mixed hyperlipidemia - Comprehensive metabolic panel; Future - Lipid panel; Future - rosuvastatin (CRESTOR) 40 mg tablet; Take 1 tablet (40 mg total) by mouth daily Former smoker RBBB 70-year-old female with incidentally noted coronary artery calcification. She is asymptomatic. She has hyperlipidemia. She has been on Crestor 20 mg daily but even so she has coronary artery calcification which correlates with coronary atherosclerosis. LDL cholesterol is good, although not at goal for a person with CAD. No history of hypertension and blood pressure is reasonable. No diabetes and remains a nonsmoker. RBBB noted; usually a benign finding. PLAN/RECOMMENDATIONS Counseled pt re: CAD, signs and sx, tx. Add aspirin 81 mg every day Increase rosuvastatin to 40 mg every day. CMP and lipids in two months Stress Echo to eval for significant ischemia FU 3-4 months, sooner if needed. Jesenia Sandoval MD, [facility] Office: [phone] or [phone] Portions of the record may have been created with voice recognition [employer] Software.Bilingual Kindergarten Teacher variances may occur. Despite proofreading, typographical errors may occur. Occasionalwrong-word or 'bsewt-x-wryt' substitutions may have occurred due to the inherent limitations of voice recognition software. Read the chart carefully and recognize, using context, where substitutions have occurred. NING SPECIALIST NING SPECIALIST documented in this encounter Miscellaneous Notes * Addendum Note - Magda Garvin MA - 11/24/2020 2:30 PM CSTAddended by: MAGDA GARVIN on: 12/01/2020 04:46 PM Modules accepted: Orders NING SPECIALIST documented in this encounter Plan of Treatment Not on file documented as of this encounter Procedures Procedure Name Priority Date/Time Associated Diagnosis Comments ECG 12-LEAD Routine 11/24/2020 RBBB documented in this encounter Results * STRESS ECHO EXERCISE WO DOPPLER/CF WO CONTRAST (12/10/2020 11:15 AM LEARNING SPECIALIST) Anatomical Region Laterality Modality Ultrasound 12/10/2020 10:1 3 AM LEARNING SPECIALIST Narrative 12/10/2020 12:[address] [facility] Cardiology [address], [place] [address] [address], [place] [address] P:[phone] P:[phone] Echocardiographic Report Patient Name: ANI ORTIZ : 1950 Study Date: 12/10/2020 10:13:54 AM Gender: F Tech: Ref.Provider: JULIEN Height(Cm): 157 BSA: 1.65 Weight(Kg): 64.41Quality: Good Order Provider: JESENIA SANDOVAL Procedures: Stress Echo Report: Treadmill stress [...] BP - 170/62. Rate Pressure Product - 02432. METS Achieved - 7.00. Percent Predicted Maximal HR Achieved - 87 %. Interpretation Site: Exam was interpreted at [facility]. Performance: Below average exercise functional capacity. Hemodynamic [...] Signed By: Bin Chawla MD 2020-12-10 12:54:31 LEARNING SPECIALIST Procedure Note Leonel Chawla MD - 12/10/2020 [facility] Cardiology [address], [place] [id number], [place] [address] P:[phone] P:[phone] Echocardiographic Report Patient Name: ANI ORTIZPatient ID: [id number] : [id number] Date: 12/10/2020 10:13:54 AM Gender: FAccession #: [id number] Tech: GMRef.Provider: JULIEN Height(Cm): 157BSA: 1.65 Weight(Kg): 64.41Quality: Good Order Provider: JESENIA SANDOVAL Procedures: Stress Echo Report: Treadmill stress [...] BP - 170/62. Rate Pressure Product - 87536. METS Achieved - 7.00.Percent Predicted Maximal HR Achieved - 87 %. Interpretation Site: Exam was interpreted at [facility]. Performance: Below average exercise functional capacity. Hemodynamic [...] Signed By: Bin Chawla MD 2020-12-10 12:54:31 LEARNING SPECIALIST Jesenia Sandoval MD CV ECHO PROCEDURES Final Re sult * ECG 12 lead (11/24/2020) Jesenia Sandoval MD ECG ORDERABLES Final Resul t documented in this encounter Visit Diagnoses Diagnosis Coronary artery calcification seen on CT scan- Primary Mixed hyperlipidemia Former smoker Personal history of tobacco use, presenting hazards to health RBBB Coronary artery calcification seen on CT scan documented in this encounter Discontinued Medications Medication Sig Discontinue Reason Start Date End Da te fluticasone propionate (FLONASE) 50 mcg/actuation nasal spray Administer 2 sprays into each nostril daily Therapy completed 06/30/2019 11/24/2020 rosuvastatin (CRESTOR) 20 mg tablet Take 1 tablet (20 mg total) by mouth daily Reorder 05/31/2020 11/24/2020 documented as of this encounter Historical Medications * This list may reflect changes made after this encounter. vit D3-vit C-omzapndza-zhba [id number] oymw-ldg-ne-mg tablet Take 50 mcg by mouth added in this encounter Orders Outpatient Referral Count Last Ordered Date Fir st Ordered Date AMB REFERRAL TO CARDIOLOGY 1 11/24/2020 documented in this encounter Care Teams Sterile Instrument Technician Relationship Specialty Start Date End Date Gabi Victoria PA [address] [place] [address] PCP - General Internal Medicine 02/19/19 documented as of this encounter
--- OUTSIDE RECORDS SUMMARY | 2024-11-08 14:01 | XMS_ITS | Encounter Summary ---
Author Organization [facility] Address [address] [place] [address] Care Team Providers Care Manufacturing Director Name Role Phone Gabi Victoria Primary Care Provider [phone]- [phone] Encounter Details Date Type Department Care Team (Late st Contact Info) Description 06/03/2020 Telephone [facility] Family Medicine [address] [place] [address] Gabi Victoria PA [address] [place] [address] Social History Tobacco Use Types [...] on file Legal Sex Female 12:08 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 ty * Telephone Encounter - Robi Castro MA - 06/03/2020 1:13 PM CDT Pt was seen this Sunday and didn't receive her Ambien 10 mg. documented in this encounter Plan of Treatment Not on file documented as of this encounter Visit Diagnoses Not on filedocumented in this encounter Discontinued Medications Medication Sig Discontinue Reason Start Date End Da te zolpidem (AMBIEN) 10 mg tablet TAKE 1 TABLET BY MOUTH EVERY DAY AT BEDTIME NEEDED Reorder 03/05/2020 06/03/2020 documented as of this encounter Care Teams Manufacturing Director Relationship Specialty Start Date End Date Gabi Victoria PA [address] [facility] [place] [address] PCP - General Internal Medicine 02/19/19 documented as of this encounter
--- OUTSIDE RECORDS SUMMARY | 2024-11-08 14:01 | XMS_ITS | Encounter Summary ---
Author Organization [facility] Address [address] [place] [address] Care Team Providers Care Film Recordist Name Role Phone Gabi Victoria Primary Care Provider [phone]- [phone] Reason for Visit * Reason Comments Review Medications Flu Vaccine Encounter Details Date Type Department Care Team (Latest Contact Info) Description 08/23/2021 11:15 AM CDT Office Visit [facility] Family Medicine [address] [place] [address] Gabi Victoria PA [address] [place] [address] Mixed hyperlipidemia (Primary Dx); Moderate episode of recurrent major depressive disorder (HCC); Fatigue, unspecified type; Flu vaccine need Social History Tobacco Use Types Packs/Day Years [...] on file Legal Sex Female 12:08 AM CARDIOVASCULAR INVASIVE SPECIALIST Gender Identity Not on file Sexual Orientation Not on file Occupation Industry Job Start Date Job End Date Retired Not on file Not on file Not on file documented as of this encounter Ordered Prescriptions Prescription Sig Dispense Quantity Refills Last Filled Start Date End Date FLUoxetine (PROzac) 20 mg capsule Take 1 capsule (20 mg total) by mouth daily Patient is on 60mg so she will take 20mg plus 40mg 90 capsule 1 08/23/2021 2 FLUoxetine (PROzac) 40 mg capsule Take 1 capsule (40 mg total) by mouth daily Patient is on 60mg so she will take 20mg plus 40mg 90 capsule 2 08/23/2021 2 documented in this encounter Progress Notes * Gabi Victoria PA - 08/23/2021 11:15 AM CDT Images from the original note were not included. Subjective/Objective Patient ID: Ani Ortiz is a 71 y.o. female. Chief Complaint Review Medications and Flu Vaccine HPI Patient presents to follow-up Prozac dose increase. She was increased to 60 mg her in early July. Continues with the Wellbutrin BuSpar and Klonopin sparingly. Can see improvement. Less stressed even with stressors at home. Will be due for labs prior to next visit COVID - GOOD x 2 Mamm and DXA order given on 07/2021 Colonoscopy - 05/2019--->2023 Review of Systems See HPI There were [...] Diagnoses and all orders for this visit: Mixed hyperlipidemia (E78.2) (Primary) Assessment & Plan: Encouraged patient to follow fat/low chol diet like the Mediterranean diet. Increase good fats inthe diet. Increase exercise. Monitor labs as needed. Continue statin Orders: - Comprehensive metabolic panel; Future - Lipid panel; Future Moderate episode of recurrent major depressive disorder (HCC) (F33.1) Assessment & Plan: Continue Prozac 60 mg. She is on Prozac 20+ Prozac 40 to make the 60. Fatigue, unspecified type (R53.83) Assessment & Plan: Probably multifactorial. Check labs and followup to re-evaluate Orders: - TSH; Future Flu vaccine need (Z23) Assessment & Plan: Flu vaccine updated in the office today Orders: - Flu Vaccine Quad High Dose PF 65Y+ IM - Fluzone High Dose Quad Other orders - FLUoxetine (PROzac) 40 mg capsule; Take 1 capsule (40 mg total) by mouth daily Patient is on 60mgso she will take 20mg plus 40mg - FLUoxetine (PROzac) 20 mg capsule; Take 1 capsule (20 mg total) by mouth daily Patient is on 60mgso she will take 20mg plus 40mg Gabi Victoria PA-C IOVASCULAR INVASIVE SPECIALIST documented in this encounter Miscellaneous Notes * Assessment & Plan Note - Gabi Victoria PA - 10/07/2021 9:58 PM CARDIOVASCULAR INVASIVE SPECIALIST Associated Problem(s): Flu vaccine need (Resolved 02/24/2022) Flu vaccine updated in the office today IOVASCULAR INVASIVE SPECIALIST * Assessment & Plan Note - Gabi Victoria PA - 10/07/2021 9:52 PM CARDIOVASCULAR INVASIVE SPECIALIST Associated Problem(s): Fatigue (Resolved 02/24/2022) Probably multifactorial. Check labs and followup to re-evaluate IOVASCULAR INVASIVE SPECIALIST * Assessment & Plan Note - Gabi Victoria PA - 10/07/2021 9:52 PM CARDIOVASCULAR INVASIVE SPECIALIST Associated Problem(s): Moderate episode of recurrent major depressive disorder (HCC) Continue Prozac 60 mg. She is on Prozac 20+ Prozac 40 to make the 60. IOVASCULAR INVASIVE SPECIALIST * Assessment & Plan Note - Gabi Victoria PA - 10/07/2021 9:51 PM CARDIOVASCULAR INVASIVE SPECIALIST Associated Problem(s): Mixed hyperlipidemia Encouraged patient to follow fat/low chol diet like the Mediterranean diet. Increase good fats inthe diet. Increase exercise. Monitor labs as needed. Continue statin IOVASCULAR INVASIVE SPECIALIST documented in this encounter Plan of Treatment Scheduled Orders Name Type Priority Associated Diagnoses Orde r Schedule Comprehensive metabolic panel Lab Routine Mixed hyperlipidemia Expected: 08/23/2021, Expires: 08/23/2022 Lipid panel Lab Routine Mixed hyperlipidemia Expected: 08/23/2022, Expires: 08/23/2022 TSH Lab Routine Fatigue, unspecified type Expected: 08/23/2021, Expires: 08/23/2022 documented as of this encounter Visit Diagnoses Diagnosis Mixed hyperlipidemia- Primary Moderate episode of recurrent major depressive disorder (HCC) Fatigue, unspecified type Flu vaccine need documented in this encounter Discontinued Medications Medication Sig Discontinue Reason Start Date End Da te Lactobac no.41/Bifidobact no.7 (PROBIOTIC-10 ORAL) Take by mouth Therapy completed 08/23/2021 FLUoxetine (PROzac) 20 mg capsule Take 1 capsule (20 mg total) by mouth daily Patient is on 60mg so she will take 20mg plus 40mg Reorder 07/19/2021 08/23/2021 FLUoxetine (PROzac) 40 mg capsule Take 1 capsule (40 mg total) by mouth daily Patient is on 60mg so she will take 20mg plus 40mg Reorder 07/19/2021 08/23/2021 documented as of this encounter Orders Immunization/Injection Count Last Ordered Date First Ordered Date FLU VACCINE HIGH DOSE QUAD P F 65Y+ IM - FLUZONE HIGH DOS 1 08/23/2021 documented in this encounter Care Teams Film Recordist Relationship Specialty Start Date End Date Gabi Victoria PA [address] [place] [address] PCP - General Internal Medicine 02/19/19 documented as of this encounter
--- OUTSIDE RECORDS SUMMARY | 2024-11-08 14:01 | XMS_ITS | Encounter Summary ---
Author Organization [facility] Address [address] [place] [address] Care Team Providers Care Street Light Servicer Name Role Phone Gabi Victoria Primary Care Provider [phone]- [phone] Reason for Visit * Reason Onset Date Comments Need EKG 11/27/2020 Encounter Details Date Type Department Care Team (Late st Contact Info) Description 11/27/2020 Telephone [facility] Cardiology [address] [place] [address] Jesenia Lee MD [address] [place] [address] Need EKG Social History Tobacco Use Types Packs/Day Years [...] on file Legal Sex Female 12:08 AM BOTTOM PRESSER Gender Identity Not on file Sexual Orientation Not on file Occupation Industry Job Start Date Job End Date Retired Not on file Not on file Not on file documented as of this encounter Miscellaneous Notes * Telephone Encounter - Jesenia Lee MD - 11/27/2020 2:39 PM BOTTOM PRESSER disregard OM PRESSER documented in this encounter Plan of Treatment Not on file documented as of this encounter Visit Diagnoses Not on filedocumented in this encounter Care Teams Street Light Servicer Relationship Specialty Start Date End Date Gabi Victoria PA [address] [facility] [address] [place] [address] PCP - General Internal Medicine 02/19/19 documented as of this encounter
--- OUTSIDE RECORDS SUMMARY | 2024-11-08 14:01 | XMS_ITS | Encounter Summary ---
Author Organization [facility] Medical [facility] Address [address] [place] [address] Care Team Providers Care Ski Lift Mechanic Name Role Phone Gabi Victoria Primary Care Provider +1- [phone] Reason for Referral * Diagnostic Imaging (Routine) - Closed Specialty Diagnoses / Procedures Referred By Contac t Referred To Contact Radiology Procedures CT Lung Cancer Screening [address] [place] [address] Phone: tel: fax: Referral ID Status Reason Start Date Expiration Date Visits Re quested Visits Authorized [id number] Closed 05/31/2020 06/30/2021 1 1 Reason for Visit * Reason Comments Follow-up Review Medications Encounter Details Date Type Department Care Team (Latest Contact Info) Description 05/31/2020 8:30 AM CDT Office Visit [facility] [address] [place] [address] [address] [place] [address] Gabi Victoria PA [address] [place] [address] Moderate episode of recurrent major depressive disorder (CMS/HCC) (Primary Dx); Cigarette smoker; BMI 25.0-25.9,adult; Anxiety; Mixed hyperlipidemia; Coronary artery calcification seen on CT scan [...] on file Legal Sex Female 12:08 AM DEPARTMENT CHAIR Gender Identity Not on file Sexual Orientation Not on file Occupation Industry Job Start Date Job End Date Retired Not on file Not on file Not on file documented as of this encounter Last Filed Vital Signs Vital Sign Reading Time Taken Comments Blood Pressure 110/70 05/31/2020 8:40 AM CDT Pulse 69 05/31/2020 8:40 AM CDT Temperature 36.8 ??C (98.3 ??F) 05/31/2020 8:40 AM CD T Respiratory Rate - - Oxygen Saturation 97% 05/31/2020 8:40 AM CDT Inhaled Oxygen Concentration - - Weight 64.5 kg (142 lb 1.6 oz) 05/31/2020 8:40 A M CDT Height 157.5 cm (5' 2 ) 05/31/2020 8:40 AM CDT Body Mass Index 25.99 05/31/2020 8:40 AM CDT documented in this encounter Ordered Prescriptions Prescription Sig Dispense Quantity Refills Last Filled Start Date End Date clonazePAM (KlonoPIN) 1 mg tabletIndications: Anxiety Take 1 tablet (1 mg total) by mouth nightly as needed for anxiety 20 tablet 05/31/2020 0 buPROPion XL (WELLBUTRIN XL) 300 mg 24 hr tabletIndications: Anxiety Take 1 tablet (300 mg total) by mouth every morning 90 tablet 1 05/31/2020 0 busPIRone (BUSPAR) 15 mg tabletIndications: Generalized Anxiety Disorder Take 1 tablet (15 mg total) by mouth 3 (three) times a day 270 tablet 1 05/31/2020 1 FLUoxetine (PROzac) 40 mg capsule Take 1 capsule (40 mg total) by mouth daily STOP the Cymbalta. Do not take together 90 capsule 2 05/31/2020 1 rosuvastatin (CRESTOR) 20 mg tablet Take 1 tablet (20 mg total) by mouth daily 90 tablet 2 05/31/2020 1 documented in this encounter Progress Notes * Gabi Victoria PA - 05/31/2020 8:30 AM CDT Images from the original note were not included. Subjective/Objective Patient ID: Ani Ortiz is a 70 y.o. female. Chief Complaint Follow-up and Review Medications HPI Pt presents to followup depression. Stopped they cymbalta in December and changed to Prozac. Continued with the Wellbutrin and buspar and still has klonipin prn. 12/2019 LDCT showed moderate to severe coroanary calcifications. LUngRads 2S -- re-screen in 1 year. Review of Systems Constitutional: Negative for fever. HENT: Negative for congestion. Respiratory: Negative for shortness of breath. Cardiovascular: Negative for chest pain. Gastrointestinal: Negative for constipation and diarrhea. Vitals: 05/31/20 0840 BP: 110/70 BP Location: Left arm Patient Position: Sitting Pulse: 69 Temp: 36.8 ??C (98.3 ??F) SpO2: 97% Weight: 64.5 kg (142 lb 1.6 oz) Height: 157.5 cm (5' 2 ) Physical Exam Vitals signs and nursing note reviewed. Constitutional: Appearance: She [...] Diagnoses and all orders for this visit: Moderate episode of recurrent major depressive disorder (CMS/HCC) (F33.1) (Primary) Assessment & Plan: Continue Prozac, wellbutrin, buspar and klonipin sparinginly Cigarette smoker (F17.210) Assessment & Plan: Encouraged smoking cessation. Discussed 3 minutes. Reviewed options for assistance with cessation. Reviewed alf sequela associated with smoking. Pt declines assistance at this time but may contact the office at anytime for further help as they desire. BMI 25.0-25.9,adult (Z68.25) Assessment & Plan: Weight/BMI is in healthy range. Continue healthy lifestyle to maintain. Anxiety (F41.9) Assessment & Plan: See depression Orders: - busPIRone (BUSPAR) 15 mg tablet; Take 1 tablet (15 mg total) by mouth 3 (three) times a day - buPROPion XL (WELLBUTRIN XL) 300 mg 24 hr tablet; Take 1 tablet (300 mg total) by mouth every morning Mixed hyperlipidemia (E78.2) Assessment & Plan: Encouraged patient to follow fat/low chol diet like the Mediterranean diet. Increase good fats inthe diet. Increase exercise. Monitor labs as needed. Crestor daily Coronary artery calcification seen on CT scan (I25.10) Assessment & Plan: LDCT done 12/2019 showed moderate to severe amount of coronary calcifications. Refer to Cardio for further evaluation. Other orders - rosuvastatin (CRESTOR) 20 mg tablet; Take 1 tablet (20 mg total) by mouth daily - FLUoxetine (PROzac) 40 mg capsule; Take 1 capsule (40 mg total) by mouth daily STOP the Cymbalta.Do not take together Gabi Victoria PA-C documented in this encounter Miscellaneous Notes * Assessment & Plan Note - Gabi Victoria PA - 08/22/2020 10:45 PM CDT Associated Problem(s): Anxiety See depression * Assessment & Plan Note - Gabi Victoria PA - 08/22/2020 10:45 PM CDT Associated Problem(s): BMI 25.0-25.9,adult (Resolved 01/13/2021) Weight/BMI is in healthy range. Continue healthy lifestyle to maintain. * Assessment & Plan Note - Gabi Victoria PA - 08/22/2020 10:45 PM CDT Associated Problem(s): Cigarette smoker (Resolved 11/24/2020) Encouraged smoking cessation. Discussed 3 minutes. Reviewed options for assistance with cessation. Reviewed alf sequela associated with smoking. Pt declines assistance at this time but may contact the office at anytime for further help as they desire. * Assessment & Plan Note - Gabi Victoria PA - 08/22/2020 10:44 PM CDT Associated Problem(s): Moderate episode of recurrent major depressive disorder (HCC) Continue Prozac, wellbutrin, buspar and klonipin sparinginly * Assessment & Plan Note - Gabi Victoria PA - 08/22/2020 10:43 PM CDT Associated Problem(s): Mixed hyperlipidemia Encouraged patient to follow fat/low chol diet like the Mediterranean diet. Increase good fats inthe diet. Increase exercise. Monitor labs as needed. Crestor daily * Assessment & Plan Note - Gabi Victoria PA - 08/22/2020 10:43 PM CDT Associated Problem(s): Coronary artery calcification seen on CT scan LDCT done 12/2019 showed moderate to severe amount of coronary calcifications. Refer to Cardio for further evaluation. documented in this encounter Plan of Treatment Not on file documented as of this encounter Procedures Procedure Name Priority Date/Time Associated Diagnosis Comments CT LUNG CANCER SCREENING Schedule Routine, Read Routine (OP Routine) 01/09/2020 documented in this encounter Results * CT Lung Cancer Screening (01/09/2020) Anatomical Region Laterality Modality Chest N/A Computed Tomogra phy Narrative 01/09/2020 Lungrads 2S. ??Repeat in 1 years. Severe to moderate coronary calcifications. Historical Provider MD TALBOT CT PROCEDURES Final R esult documented in this encounter Visit Diagnoses Diagnosis Moderate episode of recurrent major depressive disorder (HCC)- Primary Cigarette smoker Tobacco use disorder BMI 25.0-25.9,adult Anxiety Anxiety state, unspecified Mixed hyperlipidemia Coronary artery calcification seen on CT scan documented in this encounter Discontinued Medications Medication Sig Discontinue Reason Start Date End Da te rosuvastatin (CRESTOR) 20 mg tablet Take 1 tablet (20 mg total) by mouth daily Reorder 01/05/2020 05/31/2020 FLUoxetine (PROzac) 40 mg capsule Take 1 capsule (40 mg total) by mouth daily STOP the Cymbalta. Do not take together Reorder 01/05/2020 05/31/2020 busPIRone (BUSPAR) 15 mg tabletIndications:Gener alized Anxiety Disorder Take 1 tablet (15 mg total) by mouth 3 (three) times a day Reorder 01/05/2020 05/31/2020 buPROPion XL (WELLBUTRIN XL) 300 mg 24 hr tabletIndications:Anxie ty TAKE 1 TABLET BY MOUTH EVERY MORNING Reorder 04/07/2020 05/31/2020 clonazePAM (KlonoPIN) 1 mg tabletIndications:Anxie ty TAKE 1 TABLET BY MOUTH EVERY NIGHT NEEDED FOR ANXIETY Reorder 04/26/2020 05/31/2020 documented as of this encounter Care Teams Ski Lift Mechanic Relationship Specialty Start Date End Date Gabi Victoria PA [address] [facility] [address] [place] [address] PCP - General Internal Medicine 02/19/19 documented as of this encounter
--- OUTSIDE RECORDS SUMMARY | 2024-11-08 14:02 | XMS_ITS | Encounter Summary ---
Author Organization [facility] Care Team Providers Care Glue Jointer Operator Name Role Phone Gabi Victoria Primary Care Provider [phone]- [phone] Encounter Details Date Type Department Care Team (Latest Contact Info) Description 02/19/2019 Travel Social History Tobacco Use Types Packs/Day Years Used Date Smoking Tobacco: Never Smokeless Tobacco: Never Alcohol Use Standard Drinks/Week Comments Yes 0 (1 standard drink = 0.6 oz pur e alcohol) Rarely Comments Unknown Sex and Gender Information Value Date Recorded Sex Assigned at Not on file Legal Sex Female 12: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
--- OUTSIDE RECORDS SUMMARY | 2024-11-08 14:02 | XMS_ITS | Encounter Summary ---
Author Organization [facility] Address [address] [facility] [address] [place] [id number] Care Team Providers Care Adhesive Bandage Machine Operator Name Role Phone Gabi Victoria Primary Care Provider +1- [phone] Reason for Referral * Diagnostic Imaging (Routine) - Closed Specialty Diagnoses / Procedures Referred By Contac t Referred To Contact Diagnoses Cigarette smoker Procedures CT Lung Cancer Screening Gabi Victoria PA [address] [place] [address] Phone: tel: fax: [facility] [address] [place] [phone] Phone: tel: fax: Referral ID Status Reason Start Date Expiration Date Visits Re quested Visits Authorized [id number] Closed 01/05/2020 07/16/2021 1 1 R TENDER * Consultation (Routine) - Closed Specialty Diagnoses / Procedures Referred By Contac t Referred To Contact Orthopedic Surgery Diagnoses Bilateral thumb pain Gabi Victoria PA [address] [place] [address] Phone: tel: fax: Ronnell Gomez MD [address] [address] Phone: tel: fax: Referral ID Status Reason Start Date Expiration Date V isits Requested Visits Authorized [id number] Closed Specialty Services Required 01/05/2020 07/16/2021 1 1 Question Answer Please select the performing region: External Order [171] To provider: ZULEIMA MENDIOLA [[id number]] # of visits: 1 Comments Thumb pain (B) Tender mass on left pointer R TENDER Reason for Visit * Reason Comments Medicare Wellness Encounter Details Date Type Department Care Team (Late st Contact Info) Description 01/05/2020 7:30 AM WATER TENDER Office Visit [facility] Family Medicine [address] [place] [address] Gabi Victoria PA [address] [place] [address] Medicare annual wellness visit, subsequent (Primary Dx); Bilateral thumb pain; Chronic kidney disease (CKD), stage III (moderate) (CMS/HCC); Moderate episode of recurrent major depressive disorder (CMS/HCC); Osteopenia of left hip; Mixed hyperlipidemia; Cold sore; Other insomnia; Other fatigue; Anxiety; Positive depression screening; BMI 25.0-25.9,adult; Cigarette smoker Social History Tobacco Use Types Packs/Day [...] on file Legal Sex Female 12:08 AM WATER TENDER Gender Identity Not on file Sexual Orientation Not on file Occupation Industry Job Start Date Job End Date Retired Not on file Not on file Not on file documented as of this encounter Last Filed Vital Signs Vital Sign Reading Time Taken Comments Blood Pressure 128/70 01/05/2020 7:35 AM WATER TENDER Pulse 85 01/05/2020 7:35 AM WATER TENDER Temperature 36.8 ??C (98.2 ??F) 01/05/2020 7:35 AM CS T Respiratory Rate - - Oxygen Saturation 97% 01/05/2020 7:35 AM WATER TENDER Inhaled Oxygen Concentration - - Weight 63.2 kg (139 lb 4.8 oz) 01/05/2020 7:35 A M WATER TENDER Height 157.5 cm (5' 2 ) 01/05/2020 7:35 AM WATER TENDER Body Mass Index 25.48 01/05/2020 7:35 AM WATER TENDER documented in this encounter Patient Instructions * Patient Instructions* Gabi Victoria PA - 01/05/2020 7:30 AM WATER TENDER Call your insurance regarding Shingrix Coverage ([id number]). Ask should you get it in the office or at the pharmacy for the best coverage. R TENDER documented in this encounter Ordered Prescriptions Prescription Sig Dispense Quantity Refills Last Filled Start Date End Date clonazePAM (KlonoPIN) 1 mg tabletIndications: Anxiety Take 1 tablet (1 mg total) by mouth nightly as needed for anxiety 20 tablet 01/05/2020 0 FLUoxetine (PROzac) 40 mg capsule Take 1 capsule (40 mg total) by mouth daily STOP the Cymbalta. Do not take together 90 capsule 2 01/05/2020 0 buPROPion XL (WELLBUTRIN XL) 300 mg 24 hr tabletIndications: Anxiety Take 1 tablet (300 mg total) by mouth every morning 90 tablet 1 01/05/2020 0 busPIRone (BUSPAR) 15 mg tabletIndications: Generalized Anxiety Disorder Take 1 tablet (15 mg total) by mouth 3 (three) times a day 270 tablet 1 01/05/2020 0 rosuvastatin (CRESTOR) 20 mg tablet Take 1 tablet (20 mg total) by mouth daily 90 tablet 2 01/05/2020 0 documented in this encounter Progress Notes * Gabi Victoria PA - 01/05/2020 7:30 AM CST Images from the original note were not included. Subjective/Objective Patient ID: Ani Ortiz is a 69 y.o. female. Chief Complaint Medicare Wellness HPI Pt presents for Medicare Wellness and to followup chronic concerns. Positive Depression screen. Still on Wellbutrin, buspar, klonipin, cymbalta. Using Ambien for sleep. Feels like prozac helped more in the past. Just feels numb--Anxiety is better with the Buspar--no longer afraid States has done counseling and didn't think it helped. Not willing to see the Psychiatrist. Stress is coming from her mother living with her. Tolerating Crestor. Pt would like to see [facility]. Complains of bumps on her hands. Thumb joints are hurting. Still smoking. No desire to stop. Hasn't had LDCT for screening. Labs available for review below. Orders Only on 12/30/2019 Component Date Value ??? Cholesterol 12/30/2019 164 ??? HDL 12/30/2019 48* ??? Triglycerides 12/30/2019 133 ??? LDL 12/30/2019 93 ??? Chol/HDL ratio 12/30/2019 3.4 ??? Non-HDL, (LDL+VLDL) 12/30/2019 116 ??? Glucose 12/30/2019 107* ??? BUN 12/30/2019 13 ??? Creatinine 12/30/2019 1.09* ??? eGFR NON-AFR. GUYANESE 12/30/2019 52* ??? EGFR 12/30/2019 61 ??? BUN/creat ratio 12/30/2019 12 ??? Sodium 12/30/2019 141 ??? Potassium, pl 12/30/2019 4.5 ??? Chloride 12/30/2019 105 ??? CO2 12/30/2019 29 ??? Calcium 12/30/2019 9.9 ??? Protein, sr 12/30/2019 6.4 ??? Albumin 12/30/2019 4.5 ??? GLOBULIN 12/30/2019 1.9 ??? Alb/glob ratio 12/30/2019 2.4 ??? Bilirubin, total 12/30/2019 0.4 ??? Alk phos 12/30/2019 91 ??? AST 12/30/2019 14 ??? ALT (SGPT) 12/30/2019 14 ??? TSH 12/30/2019 1.09 ] Review of Systems Constitutional: Negative for fever. HENT: Negative for congestion. Respiratory: Negative for shortness of breath. Cardiovascular: Negative for chest pain. Gastrointestinal: Negative for constipation and diarrhea. Vitals: 01/05/20 0735 BP: 128/70 BP Location: Left arm Patient Position: Sitting Pulse: 85 Temp: 36.8 ??C (98.2 ??F) TempSrc: Oral SpO2: 97% Weight: 63.2 kg (139 lb 4.8 oz) Height: 157.5 cm (5' 2 ) [...] appropirate screenings. Documentation is on the chart Bilateral thumb pain (M79.644, M79.645) Assessment & Plan: This is a significant, separately identifiable problem that was evaluated and managed on the same day as the wellness exam Refer to Ortho hand for further evaluation. No NSAIDs due to renal function. Orders: - Ambulatory referral to Orthopedic Surgery; Future Chronic kidney disease (CKD), stage III (moderate) (CMS/HCC) (N18.3) Assessment & Plan: Avoid nephrotoxic drugs including NSAIDs. Monitor labs. Moderate episode of recurrent major depressive disorder (CMS/[facility]) (F33.1) Assessment & Plan: This is a [...] anxiety/sleep at night. Osteopenia of left hip (M85.852) Assessment & Plan: Encouraged Calcium, Vit D and Weight bearing exercise. Stop smoking. Recheck DXA in 09/2021 Mixed hyperlipidemia (E78.2) Assessment & Plan: Encouraged patient to continue low fat/low chol diet. Continue exercise. Increase good fats in the diet. Monitor labs as needed. Continue crestor Cold sore (B00.1) Assessment & Plan: Valtrex prn Other insomnia (G47.09) Assessment & Plan: Continue ambien prn Other fatigue (R53.83) Assessment & Plan: Probably multifactorial. Check labs and followup to re-evaluate Anxiety (F41.9) Assessment & Plan: See depression Anxiety/fear better with the buspar Orders: - busPIRone (BUSPAR) 15 mg tablet; Take 1 tablet (15 mg total) by mouth 3 (three) times a day - buPROPion XL (WELLBUTRIN XL) 300 mg 24 hr tablet; Take 1 tablet (300 mg total) by mouth every morning - clonazePAM (KlonoPIN) 1 mg tablet; Take 1 tablet (1 mg total) by mouth nightly as needed for anxiety Positive depression screening (Z13.31) Assessment & Plan: Known depression. See depression for treatment plan BMI 25.0-25.9,adult (Z68.25) Assessment & Plan: Weight/BMI is in healthy range. Continue healthy lifestyle to maintain. Cigarette smoker (F17.210) Assessment & Plan: Encouraged smoking cessation. Discussed 3 minutes. Reviewed options for assistance with cessation. Reviewed skilled nursing sequela associated with smoking. Pt declines assistance [...] consider curative lung surgery if needed. G0296 Orders: - CT Lung Cancer Screening; Future Other orders - rosuvastatin (CRESTOR) 20 mg tablet; Take 1 tablet (20 mg total) by mouth daily - FLUoxetine (PROzac) 40 mg capsule; Take 1 capsule (40 mg total) by mouth daily STOP the Cymbalta.Do not take together MEDICARE ANNUAL WELLNESS VISIT Anisobia Ortiz Medicare Health Risk Assessment Basic Information In general, would you say your health is: Good Do you have an Advanced Directive (Living Will) and/or Durable Power of Lie Detector Operator?: No Would you like information regarding Advanced Directiv (Living Will) and/or Durable Power of Lie Detector Operator?: Yes Do you have trouble hearing the television or radio when other do not?: Yes Do you have to strain or struggle to hear/understand conversations?: Yes Have you experienced any of the following problems currently or recently? Eating: Yes(swallowing) Grooming: No Bathing: No Walking: No Using the toilet: No Memory problems: Yes Difficulty speaking: No Have you experienced any of the following problems currently or recently? Laundry and/or housekeeping: No Handling Money: No Shopping: No Food preparation: No Transportation: No Taking and/or getting your own medications: No Problem List, Past Medical and Surgical History: Patient Active Problem List Diagnosis ??? Mixed hyperlipidemia ??? Anxiety ??? Tremor ??? Other fatigue ??? History of colon polyps ??? Cold sore ??? Other insomnia ??? Chronic kidney disease (CKD), stage III (moderate) (CMS/HCC) ??? Cough ??? BMI 25.0-25.9,adult ??? Osteopenia of left hip ??? Positive depression screening ??? Medicare annual wellness visit, subsequent ??? Cigarette smoker ??? Bilateral thumb pain ??? Moderate episode of recurrent major depressive disorder (CMS/HCC) History reviewed. No pertinent past medical history. Past Surgical History: Procedure Laterality Date ??? CATARACT EXTRACTION 2014 ??? CHOLECYSTECTOMY 2014 ??? COLONOSCOPY 2016 ??? HYSTERECTOMY 1981 ??? SHOULDER SURGERY Left 2014 ??? TONSILLECTOMY 1971 Family History: Family History Problem Relation Age of Onset ??? Hyperlipidemia Mother ??? Cancer Father Social History: Social History Socioeconomic History ??? Marital status: Spouse name: Not on file ??? Number of children: Not on file ??? Years of education: Not on file ??? Highest education level: Not on file Occupational History ??? Occupation: Retired Social Needs ??? Financial resource strain: Not on file ??? Food insecurity Worry: Not on file Inability: Not on file ??? Transportation needs Medical: Not on file Non-medical: Not on file Tobacco Use ??? Smoking status: Current Every Day Smoker ??? Smokeless tobacco: Never Used Substance and Sexual Activity ??? Alcohol use: Yes Comment: Rarely ??? Drug use: Never ??? Sexual activity: Not on file Lifestyle ??? Physical activity Days per week: Not on file Minutes per session: Not on file ??? Stress: Not on file Relationships ??? Social connections Talks on phone: Not on file Gets together: Not on file Attends congregation service: Not on file Active member of club or organization: Not on file Attends meetings of clubs or organizations: Not on file Relationship status: Not on file ??? Intimate partner violence Fear of current or ex partner: Not on file Emotionally abused: Not on file Physically abused: Not on file Forced sexual activity: Not on file Other Topics Concern ??? Not on file Social History Narrative ??? Not on file Allergies: Allergies Allergen Reactions ??? Cephalexin Unknown ??? Erythromycin Unknown ??? Penicillin V Potassium Unknown ??? Shellfish Unknown Medications: Current Outpatient Medications: ??? buPROPion XL (WELLBUTRIN [...] total) by mouth nightly as needed for anxiety, Disp: 20 tablet, Rfl: 0 ??? fluticasone propionate (FLONASE) 50 mcg/actuation nasal spray, Administer 2 sprays into each nostril daily, Disp: 1 Inhaler, Rfl: 3 ??? rosuvastatin (CRESTOR) 20 mg tablet, Take 1 tablet (20 mg total) by mouth daily, Disp: 90 tablet, Rfl: 2 ??? valACYclovir (VALTREX) 1 gram tablet, , Disp: , Rfl: 1 ??? zolpidem (AMBIEN) 10 mg tablet, TAKE 1 TABLET BY MOUTH EVERY DAY AT BEDTIME NEEDED, Disp: 90tablet, Rfl: 0 ??? FLUoxetine (PROzac) 40 mg capsule, Take 1 capsule (40 mg total) by mouth daily STOP the Cymbalta. Do not take together, Disp: 90 capsule, Rfl: 2 Depression Screen: PHQ Screening PHQ-2 Total Score (If total score is 3 or more points, staff should administer the PHQ-9): 6 Care Team Providers: Patient Care Team: LUIS ARMANDO Parker as PCP - General (Internal Medicine) LUIS ARMANDO Parker as PCP - [facility] Attributed PCP Primary Pharmacy/DME suppliers: [id number] - [phone] [facility] [phone] Detection of Cognitive Impairment: The patient does not have cognitive impairment based on direct observation, discussion with patientor family, or review of medical records. Health Maintenance: Health Maintenance Topics with due status: Overdue Topic Date Due Hepatitis C Screening 1950 DTaP/Tdap/Td Vaccine 1963 Zoster Vaccines 2002 Health Maintenance Topics with due status: Due On Topic Date Due Regular Well Visit/Exam 12/31/2019 Health Maintenance Topics with due status: Not Due Topic Last Completion Date Colon Cancer Screening-Colonoscopy 06/02/2019 Breast Cancer Screening-Mammogram 09/30/2019 Osteoporosis Screening-Bone Density Scan 09/30/2019 Fall Risk Assessment 01/05/2020 Depression Screening-PHQ 01/05/2020 Health Maintenance Topics with due status: Completed Topic Last Completion Date Influenza Vaccine 08/07/2019 Pneumococcal (PCV13 & PPSV23) 65+ yrs 08/25/2019 Counseling and Referral of Preventative Services: Lifestyle Recommendations Increase Physical Activity, Stop Using Tobacco and Improve Diet Advanced Directive Durable Power of Lie Detector Operator: Discussed Today Living Will: Discussed Today Patient [...] of today's office visit. Gabi Victoria PA-C R TENDER documented in this encounter Miscellaneous Notes * Assessment & Plan Note - Gabi Victoria PA - 01/05/2020 11:16 AM WATER TENDER Associated Problem(s): Moderate episode of recurrent major [...] if needs help with anxiety/sleep at night. R TENDER * Assessment & Plan Note - Gabi Victoria PA - 01/05/2020 11:15 AM WATER TENDER Associated Problem(s): Anxiety See depression Anxiety/fear better with the buspar R TENDER R TENDER * Assessment & Plan Note - Gabi Victoria PA - 01/05/2020 11:15 AM WATER TENDER Associated Problem(s): Medicare annual wellness visit, subsequent (Resolved 05/31/2020) Encouraged healthy lifestyle, good nutrition and exercise. Encouraged Calcium and Vitamin D and weight bearing exercise for bone health. Reviewed immunizations Reviewed age appropirate screenings. Documentation is on the chart R TENDER * Assessment & Plan Note - Gabi Victoria PA - 01/05/2020 11:15 AM WATER TENDER Associated Problem(s): Other fatigue (Resolved 01/12/2021) Probably multifactorial. Check labs and followup to re-evaluate R TENDER * Assessment & Plan Note - Gabi Victoria PA - 01/05/2020 11:14 AM WATER TENDER Associated Problem(s): Other insomnia Continue ambien prn R TENDER * Assessment & Plan Note - Gabi Victoria PA - 01/05/2020 11:14 AM WATER TENDER Associated Problem(s): Positive depression screening (Resolved 05/31/2020) Known depression. See depression for treatment plan R TENDER * Assessment & Plan Note - Gabi Victoria PA - 01/05/2020 11:14 AM WATER TENDER Associated Problem(s): Cold sore Valtrex prn R TENDER * Assessment & Plan Note - Gabi Victoria PA - 01/05/2020 11:14 AM WATER TENDER Associated Problem(s): Mixed hyperlipidemia Encouraged patient to continue low fat/low chol diet. Continue exercise. Increase good fats in the diet. Monitor labs as needed. Continue crestor R TENDER * Assessment & Plan Note - Gabi Victoria PA - 01/05/2020 11:13 AM WATER TENDER Associated Problem(s): Osteopenia of left hip Encouraged Calcium, Vit D and Weight bearing exercise. Stop smoking. Recheck DXA in 09/2021 R TENDER * Assessment & Plan Note - Gabi Victoria PA - 01/05/2020 11:13 AM WATER TENDER Associated Problem(s): Stage 3a chronic kidney disease (HCC) Avoid nephrotoxic drugs including NSAIDs. Monitor labs. R TENDER * Assessment & Plan Note - Gabi Victoria PA - 01/05/2020 11:13 AM WATER TENDER Associated Problem(s): Bilateral thumb pain (Resolved 03/08/2024) This is a significant, separately identifiable problem that was evaluated and managed on the same day as the wellness exam Refer to Ortho hand for further evaluation. No NSAIDs due to renal function. R TENDER * Assessment & Plan Note - Gabi Victoria PA - 01/05/2020 8:23 AM WATER TENDER Associated Problem(s): Cigarette smoker (Resolved 11/24/2020) Encouraged smoking cessation. Discussed 3 minutes. Reviewed options for assistance with cessation. Reviewed skilled nursing sequela associated with smoking. Pt declines assistance [...] consider curative lung surgery if needed. G0296 R TENDER * Assessment & Plan Note - Jacqui Marcus MA - 01/05/2020 7:40 AM WATER TENDER Associated Problem(s): BMI 25.0-25.9,adult (Resolved 01/13/2021) Weight/BMI is in healthy range. Continue healthy lifestyle to maintain. R TENDER documented in this encounter Plan of Treatment Scheduled Orders Name Type Priority Associated Diagnoses Orde r Schedule CT Lung Cancer Screening Imaging Schedule Routine, Read Routine (OP Routine) Cigarette smoker Expected: 01/05/2020, Expires: 01/05/2021 Scheduled Referrals Name Type Priority Associated Diagnoses Order Schedule Ambulatory referral to Orthopedic Surgery Outpatient Referral Routine Bilateral thumb pain Expected: 01/19/2020 (Approximate), Expires: 01/05/2021 documented as of this encounter Visit Diagnoses Diagnosis Medicare annual wellness visit, subsequent- Primary Bilateral thumb pain Chronic kidney disease (CKD), stage III (moderate) (HCC) Chronic kidney disease, Stage III (moderate) Moderate episode of recurrent major depressive disorder (HCC) Osteopenia of left hip Mixed hyperlipidemia Cold sore Herpes simplex without mention of complication Other insomnia Other fatigue Anxiety Anxiety state, unspecified Positive depression screening BMI 25.0-25.9,adult Cigarette smoker Tobacco use disorder documented in this encounter Discontinued Medications Medication Sig Discontinue Reason Start Date End Da te DULoxetine DR (CYMBALTA) 60 mg capsuleIndications:Anxie ty Take 1 capsule (60 mg total) by mouth daily 08/25/2019 01/05/2020 rosuvastatin (CRESTOR) 20 mg tablet TAKE 1 TABLET BY MOUTH EVERY DAY Reorder 11/24/2019 01/05/2020 busPIRone (BUSPAR) 15 mg tabletIndications:Genera lized Anxiety Disorder Take 1 tablet (15 mg total) by mouth 3 (three) times a day Reorder 08/25/2019 01/05/2020 buPROPion XL (WELLBUTRIN XL) 300 mg 24 hr tabletIndications:Anxiet y Take 1 tablet (300 mg total) by mouth every morning Reorder 08/25/2019 01/05/2020 clonazePAM (KlonoPIN) 1 mg tabletIndications:Anxiet y TAKE 1 TABLET(1 MG) BY MOUTH TWICE DAILY Reorder 12/08/2019 01/05/2020 documented as of this encounter Care Teams Adhesive Bandage Machine Operator Relationship Specialty Start Date End Date Gabi Victoria PA [address] [facility] [address] [place] [address] PCP - General Internal Medicine 02/19/19 documented as of this encounter
--- OUTSIDE RECORDS SUMMARY | 2024-11-08 14:02 | XMS_ITS | Encounter Summary ---
Author Organization [facility] Address [address] [place] [address] Care Team Providers Care Service Order Dispatcher Chief Name Role Phone Gabi Victoria Primary Care Provider +1- [phone] Encounter Details Date Type Department Care Team (Late st Contact Info) Description 10/28/2019 Documentation [facility] Family Medicine [address] [place] [address] Gabi Victoria PA [address] [place], [place] [id number] Social History Tobacco Use Types Packs/Day Years Used Date Smoking Tobacco: Never Smokeless Tobacco: Never Alcohol Use Standard Drinks/Week Comments Yes 0 (1 standard drink = 0.6 oz pur e alcohol) Rarely PHQ-2 Answer Date Recorded PHQ-2 Score 0 07/05/2019 Comments Unknown Sex and Gender Information Value Date Recorded Sex Assigned at Not on file Legal Sex Female 12:08 AM OCCUPATIONAL HEALTH AND SAFETY ADVISER Gender Identity Not on file Sexual Orientation Not on file Occupation Industry Job Start Date Job End Date Retired Not on file Not on file Not on file documented as of this encounter Progress Notes * Diana Quiñones - 10/28/2019 9:45 AM CST PATIONAL HEALTH AND SAFETY ADVISER documented in this encounter Plan of Treatment Not on file documented as of this encounter Procedures Procedure Name Priority Date/Time Associated Diagnosis Comments MAMMOGRAPHY Routine 09/30/2019 documented in this encounter Results * MAMMOGRAPHY (09/30/2019) Mammogram Normal Comment:Bassam us Historical Provider HEALTH MAINTENANCE Final Result documented in this encounter Visit Diagnoses Not on filedocumented in this encounter Care Teams Service Order Dispatcher Chief Relationship Specialty Start Date End Date Gabi Victoria PA [address] [place] [address] PCP - General Internal Medicine 02/19/19 documented as of this encounter
--- OUTSIDE RECORDS SUMMARY | 2024-11-08 14:02 | XMS_ITS | Encounter Summary ---
Author Organization [facility] Care Team Providers Care Lute Packer Or Applier Name Role Phone Gabi Victoria Primary Care Provider [phone]- [phone] Encounter Details Date Type Department Care Team (Latest Contact Info) Description 06/30/2019 Travel Social History Tobacco Use Types Packs/Day Years Used Date Smoking Tobacco: Never Smokeless Tobacco: Never Alcohol Use Standard Drinks/Week Comments Yes 0 (1 standard drink = 0.6 oz pur e alcohol) Rarely Comments Unknown Sex and Gender Information Value Date Recorded Sex Assigned at Not on file Legal Sex Female 12:08 AM DEPUTY EDITOR IN CHIEF Gender Identity Not on file Sexual Orientation Not on file Occupation Industry Job Start Date Job End Date Retired Not on file Not on file Not on file documented as of this encounter Plan of Treatment Not on file documented as of this encounter Visit Diagnoses Not on filedocumented in this encounter Care Teams Lute Packer Or Applier Relationship Specialty Start Date End Date Gabi Victoria PA [address] [facility] [address] [place] [address] PCP - General Internal Medicine 02/19/19 documented as of this encounter
--- OUTSIDE RECORDS SUMMARY | 2024-11-08 14:02 | XMS_ITS | Encounter Summary ---
Author Organization [facility] Address [address] [place] [address] Care Team Providers Care Broom Maker Name Role Phone Gabi Victoria Primary Care Provider +1- [phone] Encounter Details Date Type Department Care Team (Late st Contact Info) Description 12/30/2019 Orders Only [facility] Medical [facility] Family Medicine [address] [place] [address] Gabi Victoria PA [address] [place], [place] [id number] Social History Tobacco Use Types Packs/Day Years Used Date Smoking Tobacco: Never Smokeless Tobacco: Never Alcohol Use Standard Drinks/Week Comments Yes 0 (1 standard drink = 0.6 oz pur e alcohol) Rarely PHQ-2 Answer Date Recorded PHQ-2 Score 0 07/05/2019 Comments Unknown Sex and Gender Information Value Date Recorded Sex Assigned at Not on file Legal Sex Female 12:08 AM PRODUCTION LABORER Gender Identity Not on file Sexual Orientation Not on file Occupation Industry Job Start Date Job End Date Retired Not on file Not on file Not on file documented as of this encounter Plan of Treatment Not on file documented as of this encounter Procedures Procedure Name Priority Date/Time Associated Diagnosis Comments THYROID FUNCTION CASCADE Routine 12/30/2019 12:00 AM PRODUCTION LABORER LIPID PANEL Routine 12/30/2019 12:00 AM PRODUCTION LABORER COMPREHENSIVE METABOLIC PANEL Routine 12/30/2019 12:00 AM PRODUCTION LABORER documented in this encounter Results * TSH reflex to free T4 (12/30/2019 12:00 AM PRODUCTION LABORER) TSH 1.09 0.40 - 4.50 mIU/L [facility] 12/30/2019 12/30/2019 9:1 3 AM PRODUCTION LABORER Narrative [facility] - 12/31/2019 4:24 AM PRODUCTION LABORER FASTING:YES FASTING: YES Resulting Agency Comment Performing Organization Information: ?Site ID: [place] ?Name: [facility] ?Address: [address] [place] [address] ?Director: vAinash Narayan D.O., MPH us Gabi DURÁN LAB BLOOD ORDERABLES Final Result [facility] [place], [place] * (ABNORMAL) Comprehensive metabolic panel (12/30/2019 12:00 AM PRODUCTION LABORER) Pathologist [facility] Glucose 107(H) 65 - 99 mg/dL [facility] Comment: ? Fasting reference interval For someone without known diabetes, a glucose value between 100 and 125 mg/dL is consistent with prediabetes and should be confirmed with a follow-up test. BUN 13 7 - 25 mg/dL [facility] [place] Creatinine 1.09(H) 0.50 - 0.99 mg/dL [facility] [place] Comment: For patients >49 years of age, the reference limit for Creatinine is approximately 13% higher for people identified as -Bolivian. eGFR NON-AFR. BRUNEIAN 52(L) > OR = 60 mL/min/1. 73m2 [facility] [place] EGFR 61 > OR = 60 mL/min/1. 73m2 [facility] [place] BUN/creat ratio 12 6 - 22 (calc) [facility] [place] Sodium 141 135 - 146 mmol/L [facility] [place] Potassium, pl 4.5 3.5 - 5.3 mmol/L [facility] [place] Chloride 105 98 - 110 mmol/L [facility] [place] CO2 29 20 - 32 mmol/L [facility] [place] Calcium 9.9 8.6 - 10.4 mg/dL [facility] [place] Protein, sr 6.4 6.1 - 8.1 g/dL [facility] [place] Albumin 4.5 3.6 - 5.1 g/dL [facility] [place] GLOBULIN 1.9 1.9 - 3.7 g/dL (calc) [facility] [place] Alb/glob ratio 2.4 1.0 - 2.5 (calc) [facility] [place] Bilirubin, total 0.4 0.2 - 1.2 mg/dL [facility] [place] Alk phos 91 37 - 153 U/L [facility] [place] AST 14 10 - 35 U/L [facility] [place] ALT (SGPT) 14 6 - 29 U/L [facility] [place] 12/30/2019 12/30/2019 9:1 3 AM PRODUCTION LABORER Narrative [facility] - 12/31/2019 4:24 AM PRODUCTION LABORER FASTING:YES FASTING: YES Resulting Agency Comment Performing Organization Information: ?Site ID: [place] ?Name: [facility] ?Address: [address] [place] [address] [place] [address] ?Director: Avinash Nraayan D.O., MPH Gabi DURÁN LAB BLOOD ORDERABLES Final Result [facility] [place] * (ABNORMAL) Lipid panel (12/30/2019 12:00 AM PRODUCTION LABORER) Cholesterol 164 <200 mg/dL [facility] HDL 48(L) > OR = 50 mg/dL [facility] CHAN Triglycerides 133 <150 mg/dL [facility] CHAN LDL 93 mg/dL (calc) [facility] Comment: Reference range: <100 Desirable range <100 mg/dL for primary prevention; ?? <70 mg/dL for patients with CHD or diabetic patients with > or = 2 CHD risk factors. LDL-C is now calculated using the Nazario calculation, which is a validated novel method providing better accuracy than the Friedewald equation in the estimation of LDL-C. Curt DAI et al. NESS. 2013;310(19): 6331-0258 (http://education.Zafu/faq/OQD910) Chol/HDL ratio 3.4 <5.0 (calc) [facility] [place] Non-HDL, (LDL+VLDL) 116 <130 mg/dL (calc) [facility] [place] Comment: For patients with diabetes plus 1 major ASCVD risk factor, treating to a non-HDL-C goal of <100 mg/dL (LDL-C of <70 mg/dL) is considered a therapeutic option. 12/30/2019 12/30/2019 9:1 3 AM PRODUCTION LABORER Narrative [facility] - 12/31/2019 4:24 AM PRODUCTION LABORER FASTING:YES FASTING: YES Resulting Agency Comment Performing Organization Information: ?Site ID: [place] ?Name: [facility] ?Address: [address] [place] [address] ?Director: Avinash Narayan D.O., MPH Gabi DURÁN LAB BLOOD ORDERABLES Final Result [facility] [place] documented in this encounter Visit Diagnoses Not on filedocumented in this encounter Care Teams Broom Maker Relationship Specialty Start Date End Date Gabi Victoria PA [address] [facility] [address] [place] [address] PCP - General Internal Medicine 02/19/19 documented as of this encounter
--- OUTSIDE RECORDS SUMMARY | 2024-11-08 14:02 | XMS_ITS | Encounter Summary ---
Author Organization [facility] Address [address] [place] [id number] Care Team Providers Care Custom Harvester Name Role Phone Gabi Victoria Primary Care Provider +1- [phone] Reason for Visit * Reason Comments Discuss Test Results Patient is here to review Mammogram and DXA results Encounter Details Date Type Department Care Team (Late st Contact Info) Description 10/20/2019 8:00 AM ASTROCHEMIST Office Visit [facility] Family Medicine [address] [place] [address] Gabi Victoria PA [address] [place] [address] Osteopenia of left hip (Primary Dx); Anxiety; Chronic kidney disease (CKD), stage III (moderate) (CMS/HCC); Mixed hyperlipidemia; Other fatigue; BMI 25.0-25.9,adult Social History Tobacco Use Types Packs/Day Years Used Date Smoking Tobacco: Never Smokeless Tobacco: Never Alcohol Use Standard Drinks/Week Comments Yes 0 (1 standard drink = 0.6 oz pur e alcohol) Rarely PHQ-2 Answer Date Recorded PHQ-2 Score 0 07/05/2019 Comments Unknown Sex and Gender Information Value Date Recorded Sex Assigned at Not on file Legal Sex Female 12:08 AM ASTROCHEMIST Gender Identity Not on file Sexual Orientation Not on file Occupation Industry Job Start Date Job End Date Retired Not on file Not on file Not on file documented as of this encounter Last Filed Vital Signs Vital Sign Reading Time Taken Comments Blood Pressure 132/80 10/20/2019 8:28 AM ASTROCHEMIST Pulse 78 10/20/2019 8:28 AM ASTROCHEMIST Temperature 36.9 ??C (98.4 ??F) 10/20/2019 8:28 AM CS T Respiratory Rate - - Oxygen Saturation 98% 10/20/2019 8:28 AM ASTROCHEMIST Inhaled Oxygen Concentration - - Weight 63.4 kg (139 lb 11.2 oz) 10/20/2019 8:28 AM ASTROCHEMIST Height 157.5 cm (5' 2 ) 10/20/2019 8:28 AM ASTROCHEMIST Body Mass Index 25.55 10/20/2019 8:28 AM ASTROCHEMIST documented in this encounter Progress Notes * Gabi Victoria PA - 10/20/2019 8:00 AM CST Images from the original note were not included. Subjective/Objective Patient ID: Ani Ortiz is a 69 y.o. female. Chief Complaint Discuss Test Results (Patient is here to review Mammogram and DXA results) HPI Pt presents to followup chronic concerns. Mammogram -- Done 09/30 at [place]. (L) ok. (R) -- assymetry but waiting for comparison. Will call [place] to see if comparison completed. DXA done 09/30 Spine (-0.4) (L) hip (-0.9) (R) hip (-1.4) Pt had been on Fosamax a few years ago and stopped it. I don't have previous DXA for review/comparison. Increased the Buspar to 15mg tid for the Anxiety at last visit. Still on Cymbalta, Wellbutrin and prn Klonipin. States this is the most difficult time of the year due to multiple deaths in the family including her 3-4 years ago so wants to monitor and reassess in the late winter/early spring. Review of Systems Constitutional: Negative for fever. HENT: Negative for congestion. Respiratory: Negative for shortness of breath. Cardiovascular: Negative for chest pain. Gastrointestinal: Negative for constipation and diarrhea. Vitals: 10/20/19 0828 BP: 132/80 BP Location: Left arm Patient Position: Sitting Pulse: 78 Temp: 36.9 ??C (98.4 ??F) TempSrc: Oral SpO2: 98% Weight: 63.4 kg (139 lb 11.2 oz) Height: 157.5 cm (5' 2 ) Physical Exam Vitals signs and nursing note reviewed. Constitutional: Appearance: She is well-developed. HENT: Head: Normocephalic and atraumatic. Eyes: Comments: Pupils are equal Cardiovascular: Rate and Rhythm: Normal rate and regular rhythm. Heart sounds: No murmur. Pulmonary: Effort: Pulmonary effort is normal. Breath sounds: Normal breath sounds. Abdominal: Palpations: Abdomen is soft. Tenderness: There is no tenderness. Skin: General: Skin is warm and dry. Findings: No rash. Neurological: Mental Status: She is alert and oriented to person, place, and time. Assessment/Plan Diagnoses and all orders for this visit: Osteopenia of left hip (M85.852) (Primary) Assessment & Plan: DXA 09/2019 at [place] Reviewed results with patient. Encouraged calcium, vit d and exercise. Recheck in 2 years. Anxiety (F41.9) Assessment & Plan: Continue Cymbalta, Wellbutrin and Buspar. Has Klonipin, but she takes it for RLS/sleep. Chronic kidney disease (CKD), stage III (moderate) (CMS/HCC) (N18.3) Assessment & Plan: Avoid nephrotoxic drugs including NSAIDs. Monitor labs. Orders: - Comprehensive metabolic panel; Future Mixed hyperlipidemia (E78.2) Assessment & Plan: Encouraged patient to continue low fat/low chol diet. Continue exercise. Increase good fats in the diet. Monitor labs as needed. Continue Crestor Orders: - Lipid panel; Future Other fatigue (R53.83) Assessment & Plan: Check labs Orders: - TSH reflex to free T4; Future BMI 25.0-25.9,adult (Z68.25) Assessment & Plan: Weight/BMI is in healthy range. Continue healthy lifestyle to maintain. Gabi Victoria PA-C OCHEMIST documented in this encounter Miscellaneous Notes * Assessment & Plan Note - Gabi Victoria PA - 10/20/2019 1:43 PM ASTROCHEMIST Associated Problem(s): Other insomnia Continue Ambien OCHEMIST * Assessment & Plan Note - Gabi Victoria PA - 10/20/2019 1:43 PM ASTROCHEMIST Associated Problem(s): Other fatigue (Resolved 01/12/2021) Check labs OCHEMIST * Assessment & Plan Note - Gabi Victoria PA - 10/20/2019 1:42 PM ASTROCHEMIST Associated Problem(s): Anxiety Continue Cymbalta, Wellbutrin and Buspar. Has Klonipin, but she takes it for RLS/sleep. OCHEMIST * Assessment & Plan Note - Gabi Victoria PA - 10/20/2019 1:42 PM ASTROCHEMIST Associated Problem(s): Mixed hyperlipidemia Encouraged patient to continue low fat/low chol diet. Continue exercise. Increase good fats in the diet. Monitor labs as needed. Continue Crestor OCHEMIST * Assessment & Plan Note - Gabi Victoria PA - 10/20/2019 1:41 PM ASTROCHEMIST Associated Problem(s): Stage 3a chronic kidney disease (HCC) Avoid nephrotoxic drugs including NSAIDs. Monitor labs. OCHEMIST * Assessment & Plan Note - Gabi Victoria PA - 10/20/2019 8:48 AM ASTROCHEMIST Associated Problem(s): Osteopenia of left hip DXA 09/2019 at [place] Reviewed results with patient. Encouraged calcium, vit d and exercise. Recheck in 2 years. OCHEMIST OCHEMIST * Assessment & Plan Note - Jacqui Marcus MA - 10/20/2019 8:35 AM ASTROCHEMIST Associated Problem(s): BMI 25.0-25.9,adult (Resolved 01/13/2021) Weight/BMI is in healthy range. Continue healthy lifestyle to maintain. OCHEMIST documented in this encounter Plan of Treatment Scheduled Orders Name Type Priority Associated Diagnoses Orde r Schedule Lipid panel Lab Routine Mixed hyperlipidemia Expected: 10/20/2020, Expires: 10/20/2020 Comprehensive metabolic panel Lab Routine Chronic kidney disease (CKD), stage III (moderate) (CMS/HCC) Expected: 10/20/2019, Expires: 10/20/2020 TSH reflex to free T4 Lab Routine Other fatigue Expected: 10/20/2019, Expires: 10/20/2020 documented as of this encounter Visit Diagnoses Diagnosis Osteopenia of left hip- Primary Anxiety Anxiety state, unspecified Chronic kidney disease (CKD), stage III (moderate) (HCC) Chronic kidney disease, Stage III (moderate) Mixed hyperlipidemia Other fatigue BMI 25.0-25.9,adult documented in this encounter Care Teams Custom Harvester Relationship Specialty Start Date End Date Gabi Victoria PA [address] [facility] [address] [place] [address] PCP - General Internal Medicine 02/19/19 documented as of this encounter
--- OUTSIDE RECORDS SUMMARY | 2024-11-08 14:02 | XMS_ITS | Encounter Summary ---
Author Organization [facility] Care Team Providers Care Nutritional Services Cook Name Role Phone Gabi Victoria Primary Care Provider +1- [phone] Encounter Details Date Type Department Care Team (Latest Contact Info) Description 08/25/2019 Travel Social History Tobacco Use Types Packs/Day Years Used Date Smoking Tobacco: Never Smokeless Tobacco: Never Alcohol Use Standard Drinks/Week Comments Yes 0 (1 standard drink = 0.6 oz pur e alcohol) Rarely PHQ-2 Answer Date Recorded PHQ-2 Score 0 07/05/2019 Comments Unknown Sex and Gender Information Value Date Recorded Sex Assigned at Not on file Legal Sex Female 12:08 AM KAIWHAKAHAERE Gender Identity Not on file Sexual Orientation Not on file Occupation Industry Job Start Date Job End Date Retired Not on file Not on file Not on file documented as of this encounter Plan of Treatment Not on file documented as of this encounter Visit Diagnoses Not on filedocumented in this encounter Care Teams Nutritional Services Cook Relationship Specialty Start Date End Date Gabi Victoria PA [address] [address] PCP - General Internal Medicine 02/19/19 documented as of this encounter
--- OUTSIDE RECORDS SUMMARY | 2024-11-08 14:02 | XMS_ITS | Encounter Summary ---
Author Organization [facility] Address [address] [address] [place] [address] Care Team Providers Care Farm Helper Name Role Phone Gabi Victoria Primary Care Provider +1- [phone] Reason for Visit * Reason Comments Anxiety Patient is here for a f/u on her anxiety/ medicine. Encounter Details Date Type Department Care Team (Late st Contact Info) Description 04/02/2019 8:00 AM CDT Office Visit [facility] Family Medicine [address] [facility] [address] [place] [address] Gabi Victoria PA [address] [place] [address] Anxiety (Primary Dx); BMI 23.0-23.9, adult Social History Tobacco Use Types Packs/Day Years Used Date Smoking Tobacco: Never Smokeless Tobacco: Never Alcohol Use Standard Drinks/Week Comments Yes 0 (1 standard drink = 0.6 oz pur e alcohol) Rarely Comments Unknown Sex and Gender Information Value Date Recorded Sex Assigned at Not on file Legal Sex Female 12:08 AM ULTRASOUND MANAGER Gender Identity Not on file Sexual Orientation Not on file Occupation Industry Job Start Date Job End Date Retired Not on file Not on file Not on file documented as of this encounter Last Filed Vital Signs Vital Sign Reading Time Taken Comments Blood Pressure 118/64 04/02/2019 8:13 AM CDT Pulse 73 04/02/2019 8:13 AM CDT Temperature 37 ??C (98.6 ??F) 04/02/2019 8:13 AM CDT Respiratory Rate - - Oxygen Saturation 98% 04/02/2019 8:13 AM CDT Inhaled Oxygen Concentration - - Weight 61.8 kg (136 lb 3.2 oz) 04/02/2019 8:13 A M CDT Height 157.5 cm (5' 2 ) 04/02/2019 8:13 AM CDT Body Mass Index 24.91 04/02/2019 8:13 AM CDT documented in this encounter Patient Instructions * Patient Instructions* Gabi Victoria PA - 04/02/2019 8:00 AM CDT Please feel free to call the office if you have any questions or concerns. documented in this encounter Ordered Prescriptions Prescription Sig Dispense Quantity Refills Last Filled Start Date End Date busPIRone (BUSPAR) 10 mg tabletIndications: Generalized Anxiety Disorder Take 1 tablet (10 mg total) by mouth 3 (three) times a day 270 tablet 1 04/02/[address] (CYMBALTA) 60 mg capsuleIndications :Anxiety Take 1 capsule (60 mg total) by mouth daily 90 capsule 1 04/02/2019 9 buPROPion XL (WELLBUTRIN XL) 300 mg 24 hr tabletIndications: Anxiety Take 1 tablet (300 mg total) by mouth every morning 90 tablet 1 04/02/2019 9 documented in this encounter Progress Notes * Gabi Victoria PA - 04/02/2019 8:00 AM CDT Images from the original note were not included. Subjective/Objective Patient ID: Ani Ortiz is a 69 y.o. female. Chief Complaint Anxiety (Patient is here for a f/u on her anxiety/ medicine.) HPI Anxiety much better controlled. The Buspar 5mg tid made a huge difference. Still on the Cymbalta and Wellbutrin. Still feels like room for improvement. Tolerating well. Hasn't had to use the Clonazepam. - appt for colonsoocpy Still hasn't done DXA or mamm Review of Systems Constitutional: Negative for fever. HENT: Negative for congestion. Respiratory: Negative for shortness of breath. Cardiovascular: Negative for chest pain. Gastrointestinal: Negative for constipation and diarrhea. Vitals: 04/02/19 0813 BP: 118/64 BP Location: Right arm Patient Position: Sitting Pulse: 73 Temp: 37 ??C (98.6 ??F) TempSrc: Oral SpO2: 98% Weight: 61.8 kg (136 lb 3.2 oz) Height: 157.5 cm (5' 2 ) Physical Exam Constitutional: She is oriented to person, place, and time. She appears well- developed and well-nourished. HENT: Head: Normocephalic and atraumatic. Cardiovascular: Normal rate and regular rhythm. No murmur heard. Pulmonary/Chest: Effort normal and breath sounds normal. Abdominal: Soft. There is no tenderness. Musculoskeletal: She exhibits no edema. Neurological: She is alert and oriented to person, place, and time. Skin: Skin is warm and dry. No rash noted. Psychiatric: She has a normal mood and affect. Nursing note and vitals reviewed. Assessment/Plan Diagnoses and all orders for this visit: Anxiety (F41.9) (Primary) Assessment & Plan: Improving. Continue the Cymbalta and Wellbutin. Increase the Bupsar to 10mg tid. Use Clonazepam only for acute panic. Call if increased sxs/problems. Orders: - buPROPion XL (WELLBUTRIN XL) 300 mg 24 hr tablet; Take 1 tablet (300 mg total) by mouth every morning - DULoxetine DR (CYMBALTA) 60 mg capsule; Take 1 capsule (60 mg total) by mouth daily - busPIRone (BUSPAR) 10 mg tablet; Take 1 tablet (10 mg total) by mouth 3 (three) times a day BMI 23.0-23.9, adult (Z68.23) Assessment & Plan: Weight/BMI is in healthy range. Continue healthy lifestyle to maintain. Gabi Victoria PA-C documented in this encounter Miscellaneous Notes * Assessment & Plan Note - Gabi Victoria PA - 04/09/2019 11:21 PM CDT Associated Problem(s): Anxiety Improving. Continue the Cymbalta and Wellbutin. Increase the Bupsar to 10mg tid. Use Clonazepam only for acute panic. Call if increased sxs/problems. * Assessment & Plan Note - Jacqui Marcus MA - 04/02/2019 8:19 AM CDT Associated Problem(s): BMI 23.0-23.9, adult (Resolved 06/30/2019) Weight/BMI is in healthy range. Continue healthy lifestyle to maintain. documented in this encounter Plan of Treatment Not on file documented as of this encounter Visit Diagnoses Diagnosis Anxiety- Primary Anxiety state, unspecified BMI 23.0-23.9, adult documented in this encounter Discontinued Medications Medication Sig Discontinue Reason Start Date End Da te busPIRone (BUSPAR) 5 mg tabletIndications:Genera lized Anxiety Disorder Take 1 tablet (5 mg total) by mouth 3 (three) times a day as needed (anxiety) 02/19/2019 04/02/2019 buPROPion XL (WELLBUTRIN XL) 300 mg 24 hr tabletIndications:Anxiet y Take 1 tablet (300 mg total) by mouth every morning Reorder 02/19/2019 04/02/[address] (CYMBALTA) 60 mg capsuleIndications:Anxie ty Take 1 capsule (60 mg total) by mouth daily Reorder 02/19/2019 04/02/2019 documented as of this encounter Care Teams Farm Helper Relationship Specialty Start Date End Date Gabi Victoria PA [address] [place] [address] PCP - General Internal Medicine 02/19/19 documented as of this encounter
--- OUTSIDE RECORDS SUMMARY | 2024-11-08 14:02 | XMS_ITS | Encounter Summary ---
Author Organization [facility] Facility Care Team Providers Care Campaign Associate Name Role Phone Gabi Victoria Primary Care Provider +1- [phone] Encounter Details Date Type Department Care Team (Latest Contact Info) Description 04/02/2019 Travel Social History Tobacco Use Types Packs/Day Years Used Date Smoking Tobacco: Never Smokeless Tobacco: Never Alcohol Use Standard Drinks/Week Comments Yes 0 (1 standard drink = 0.6 oz pur e alcohol) Rarely Comments Unknown Sex and Gender Information Value Date Recorded Sex Assigned at Not on file Legal Sex Female 12:08 AM WIRELESS NETWORK ENGINEER Gender Identity Not on file Sexual Orientation Not on file Occupation Industry Job Start Date Job End Date Retired Not on file Not on file Not on file documented as of this encounter Plan of Treatment Not on file documented as of this encounter Visit Diagnoses Not on filedocumented in this encounter Care Teams Campaign Associate Relationship Specialty Start Date End Date Gabi Victoria PA [address] [facility] [address] [place] [address] PCP - General Internal Medicine 02/19/19 documented as of this encounter
--- OUTSIDE RECORDS SUMMARY | 2024-11-08 14:02 | XMS_ITS | Encounter Summary ---
Author Organization [facility] Address [address] [facility] [address] [place] [address] Care Team Providers Care Auto Damage Adjuster Name Role Phone Gabi Victoria Primary Care Provider +1- [phone] Encounter Details Date Type Department Care Team (Late st Contact Info) Description 09/30/2019 Orders Only [facility] [address] [place] [address] Scanning, Provider Social History Tobacco Use Types Packs/Day Years Used Date Smoking Tobacco: Never Smokeless Tobacco: Never Alcohol Use Standard Drinks/Week Comments Yes 0 (1 standard drink = 0.6 oz pur e alcohol) Rarely PHQ-2 Answer Date Recorded PHQ-2 Score 0 07/05/2019 Comments Unknown Sex and Gender Information Value Date Recorded Sex Assigned at Not on file Legal Sex Female 12:08 AM EXECUTIVE COACH Gender Identity Not on file Sexual Orientation Not on file Occupation Industry Job Start Date Job End Date Retired Not on file Not on file Not on file documented as of this encounter Plan of Treatment Not on file documented as of this encounter Procedures Procedure Name Priority Date/Time Associated Diagnosis Comments SCAN - RADIOLOGY/IMAGING 09/30/2019 documented in this encounter Results * SCAN - RADIOLOGY/IMAGING (09/30/2019) Anatomical Region Laterality Modality Other us Provider Scanning Edited Result - Final documented in this encounter Visit Diagnoses Not on filedocumented in this encounter Care Teams Auto Damage Adjuster Relationship Specialty Start Date End Date Gabi Victoria PA [address] [place] [address] PCP - General Internal Medicine 02/19/19 documented as of this encounter
--- OUTSIDE RECORDS SUMMARY | 2024-11-08 14:02 | XMS_ITS | Encounter Summary ---
Author Organization [facility] Address [address] [place] [address] Care Team Providers Care Door Slinger Name Role Phone Gabi Victoria Primary Care Provider +1- [phone] Reason for Visit * Reason Onset Date Comments Prior Auth 04/01/2019 Encounter Details Date Type Department Care Team (Late st Contact Info) Description 04/01/2019 Telephone [facility] Family Medicine [address] [place] [address] Gabi Victoria PA [address] [place] [address] Prior Auth Social History Tobacco Use Types Packs/Day Years Used Date Smoking Tobacco: Never Smokeless Tobacco: Never Alcohol Use Standard Drinks/Week Comments Yes 0 (1 standard drink = 0.6 oz pur e alcohol) Rarely Comments Unknown Sex and Gender Information Value Date Recorded Sex Assigned at Not on file Legal Sex Female 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 Approved 03/01/19-03/31/19. documented in this encounter Plan of Treatment Not on file documented as of this encounter Visit Diagnoses Not on filedocumented in this encounter Care Teams Door Slinger Relationship Specialty Start Date End Date Gabi Victoria PA [address] [place] [address] PCP - General Internal Medicine 02/19/19 documented as of this encounter
--- OUTSIDE RECORDS SUMMARY | 2024-11-08 14:02 | XMS_ITS | Encounter Summary ---
Author Organization [facility] Address [address] [place] [address] Care Team Providers Care Oracle Distribution Consultant Name Role Phone Gabi Victoria Primary Care Provider +1- [phone] Reason for Visit * Reason Comments Follow-up Cough Nasal Congestion Ear Fullness Encounter Details Date Type Department Care Team (Late st Contact Info) Description 06/30/2019 7:30 AM CDT Office Visit [facility] Family Medicine [address] [place] [address] Gabi Victoria PA [address] [place] [address] Cough (Primary Dx); Anxiety; BMI 24.0-24.9, adult Social History Tobacco Use Types Packs/Day Years Used Date Smoking Tobacco: Never Smokeless Tobacco: Never Alcohol Use Standard Drinks/Week Comments Yes 0 (1 standard drink = 0.6 oz pur e alcohol) Rarely Comments Unknown Sex and Gender Information Value Date Recorded Sex Assigned at Not on file 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 Gender Identity Not on file Sexual Orientation Not on file Occupation Industry Job Start Date Job End Date Retired Not on file Not on file Not on file documented as of this encounter Last Filed Vital Signs Vital Sign Reading Time Taken Comments Blood Pressure 126/80 06/30/2019 7:43 AM CDT Pulse 82 06/30/2019 7:43 AM CDT Temperature 36.8 ??C (98.3 ??F) 06/30/2019 7:43 AM CD T Respiratory Rate - - Oxygen Saturation 98% 06/30/2019 7:43 AM CDT Inhaled Oxygen Concentration - - Weight 60.8 kg (134 lb 1.6 oz) 06/30/2019 7:43 A M CDT Height 157.5 cm (5' 2 ) 06/30/2019 7:43 AM CDT Body Mass Index 24.53 06/30/2019 7:43 AM CDT documented in this encounter Patient Instructions * Patient Instructions* Gabi Victoria PA - 06/30/2019 7:30 AM CDT Start antihistamine, Mucinex and Steroid nasal spray. Push fluids. Rest. Supportive care. If sxs worsen or don\'t improve, pt is to followup in the office. documented in this encounter Ordered Prescriptions Prescription Sig Dispense Quantity Refills Last Filled Start Date End Date fluticasone propionate (FLONASE) 50 mcg/actuation nasal spray Administer 2 sprays into each nostril daily 1 Inhaler 3 06/30/2019 1 guaiFENesin-codein e (GUAITUSS AC) liquid 100-10 mg/5 mLIndications:Coug h Take 5-10 mL by mouth every 4 (four) hours as needed for cough 180 mL 06/30/[address] (CYMBALTA) 60 mg capsuleIndications :Anxiety Take 1 capsule (60 mg total) by mouth daily 90 capsule 1 06/30/2019 9 clonazePAM (KlonoPIN) 1 mg tabletIndications: Anxiety Take 1 tablet (1 mg total) by mouth 2 (two) times a day 20 tablet 06/30/2019 9 busPIRone (BUSPAR) 10 mg tabletIndications: Generalized Anxiety Disorder Take 1 tablet (10 mg total) by mouth 3 (three) times a day 270 tablet 1 06/30/2019 9 buPROPion XL (WELLBUTRIN XL) 300 mg 24 hr tabletIndications: Anxiety Take 1 tablet (300 mg total) by mouth every morning 90 tablet 1 06/30/2019 9 documented in this encounter Progress Notes * Gabi Victoria PA - 06/30/2019 7:30 AM CDT Images from the original note were not included. Subjective/Objective Patient ID: Ani Ortiz is a 69 y.o. female. Chief Complaint Follow-up; Cough; Nasal Congestion; and Ear Fullness HPI Anxiety much better. She is amazed how much better her control is with the Cymbalta 60, Wellbutrin 300, and then the BuSpar she is doing twice a day with a 3rd 1 as needed. In the last 3 months she has only used 7-10 clonazepam because her anxiety is so much better controlled. She will need refillsof her medications. She prefers him to be printed. 5 days ago started coughing, drainage, congestion. Denies wheezing. Started Sudafed and MucinexDM. Note screen discharge at times but it seems as though stuff is stuckat the base of her throat and she has was trying to clear the drainage that gets stuck there. No fevers chills or sweats. She states she has had bronchitis multiple times in the past and does not tolerate steroids or inhalers well at all. She throughout a medication that she was on 20 years ago andit turned out it was a theophylline and states that the only thing that ever really helps her. Still has order for mammogram but has not completed yet. Colonoscopy was completed. States she has polyps and will repeat in 5 years. Report is already in the chart. Review of Systems Constitutional: Negative for fever. HENT: Negative for congestion. Respiratory: Positive for cough. Negative for shortness of breath and wheezing. Cardiovascular: Negative for chest pain. Gastrointestinal: Negative for constipation and diarrhea. Vitals: 06/30/19 0743 BP: 126/80 BP Location: Left arm Patient Position: Sitting Pulse: 82 Temp: 36.8 ??C (98.3 ??F) TempSrc: Oral SpO2: 98% Weight: 60.8 kg (134 lb 1.6 oz) Height: 157.5 cm (5' 2 ) Physical Exam Constitutional: She is oriented to person, place, and time. She appears well- developed and well-nourished. HENT: Head: Normocephalic and atraumatic. Cardiovascular: Normal rate and regular rhythm. No murmur heard. Pulmonary/Chest: Effort normal and breath sounds normal. She has no wheezes. Abdominal: Soft. There is no tenderness. Musculoskeletal: She exhibits no edema. Neurological: She is alert and oriented to person, place, and time. Skin: Skin is warm and dry. No rash noted. Psychiatric: She has a normal mood and affect. Nursing note and vitals reviewed. Assessment/Plan Diagnoses and all orders for this visit: Cough (R05) (Primary) Assessment & Plan: Her cough today seems related more so towards postnasal drainage. No signs of bronchitis. Recommendstarting antihistamine, Flonase, Mucinex/perez Tussin at bedtime, and continue to monitor closely.Push fluids. If symptoms progress or turning a fever or increased shortness of breath she is to follow-up sooner. Anxiety (F41.9) Assessment & Plan: Stable with her current regimen of Cymbalta BuSpar Wellbutrin and Klonopin p.r.n. Orders: - buPROPion XL (WELLBUTRIN XL) 300 mg 24 hr tablet; Take 1 tablet (300 mg total) by mouth every morning - busPIRone (BUSPAR) 10 mg tablet; Take 1 tablet (10 mg total) by mouth 3 (three) times a day - clonazePAM (KlonoPIN) 1 mg tablet; Take 1 tablet (1 mg total) by mouth 2 (two) times a day - DULoxetine DR (CYMBALTA) 60 mg capsule; Take 1 capsule (60 mg total) by mouth daily BMI 24.0-24.9, adult (Z68.24) Assessment & Plan: Weight/BMI is in healthy range. Continue healthy lifestyle to maintain. Other orders - guaiFENesin-codeine (GUAITUSS AC) liquid 100-10 mg/5 mL; Take 5-10 mL by mouth every 4 (four) hours as needed for cough - fluticasone propionate (FLONASE) 50 mcg/actuation nasal spray; Administer 2 sprays into each nostril daily Gabi Victoria PA-C documented in this encounter Miscellaneous Notes * Assessment & Plan Note - Gabi Victoria PA - 06/30/2019 8:17 AM CDT Associated Problem(s): Anxiety Stable with her current regimen of Cymbalta BuSpar Wellbutrin and Klonopin p.r.n. * Assessment & Plan Note - Gabi Victoria PA - 06/30/2019 8:17 AM CDT Associated Problem(s): Cough Her cough today seems related more so towards postnasal drainage. No signs of bronchitis. Recommendstarting antihistamine, Flonase, Mucinex/perez Tussin at bedtime, and continue to monitor closely.Push fluids. If symptoms progress or turning a fever or increased shortness of breath she is to follow-up sooner. * Assessment & Plan Note - Jacqui Marcus MA - 06/30/2019 7:47 AM CDT Associated Problem(s): BMI 24.0-24.9, adult (Resolved 09/02/2024) Weight/BMI is in healthy range. Continue healthy lifestyle to maintain. documented in this encounter Plan of Treatment Not on file documented as of this encounter Visit Diagnoses Diagnosis Cough- Primary Anxiety Anxiety state, unspecified BMI 24.0-24.9, adult documented in this encounter Discontinued Medications Medication Sig Discontinue Reason Start Date End Da te buPROPion XL (WELLBUTRIN XL) 300 mg 24 hr tabletIndications:Anxiet y Take 1 tablet (300 mg total) by mouth every morning Reorder 04/02/2019 06/30/2019 busPIRone (BUSPAR) 10 mg tabletIndications:Genera lized Anxiety Disorder Take 1 tablet (10 mg total) by mouth 3 (three) times a day Reorder 04/02/2019 06/30/2019 clonazePAM (KlonoPIN) 1 mg tabletIndications:Anxiet y Take 1 tablet (1 mg total) by mouth 2 (two) times a day Reorder 02/19/2019 06/30/[address] (CYMBALTA) 60 mg capsuleIndications:Anxie ty Take 1 capsule (60 mg total) by mouth daily Reorder 04/02/2019 06/30/2019 documented as of this encounter Care Teams Oracle Distribution Consultant Relationship Specialty Start Date End Date Gabi Victoria PA [address] [place] [address] PCP - General Internal Medicine 02/19/19 documented as of this encounter
--- OUTSIDE RECORDS SUMMARY | 2024-11-08 14:02 | XMS_ITS | Encounter Summary ---
Author Organization [facility] Address 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 ACE LAY OUT TECHNICIAN * Telephone Encounter - Diana Quiñones - 10/21/2019 1:41 PM CST Patient called today, was in yesterday and needed refill on Klonopin.Patient states pharmacy never received RX. ACE LAY OUT TECHNICIAN documented in this encounter Plan of Treatment Not on file documented as of this encounter Visit Diagnoses Diagnosis Anxiety Anxiety state, unspecified documented in this encounter Discontinued Medications Medication Sig Discontinue Reason Start Date End Da te clonazePAM (KlonoPIN) 1 mg tabletIndications:Anxiet y Take 1 tablet (1 mg total) by mouth 2 (two) times a day Reorder 08/25/2019 10/22/2019 documented as of this encounter Care Teams Rn Enterostomal Relationship Specialty Start Date End Date Gabi Victoria PA [address] [place] [address] PCP - General Internal Medicine 02/19/19 documented as of this encounter
--- OUTSIDE RECORDS SUMMARY | 2024-11-08 14:02 | XMS_ITS | Encounter Summary ---
Author Organization [facility] Care Team Providers Care Social Science Research Assistant Name Role Phone Gabi Victoria Primary Care Provider +1- [phone] Encounter Details Date Type Department Care Team (Latest Contact Info) Description 10/20/2019 Travel Social History Tobacco Use Types Packs/Day Years Used Date Smoking Tobacco: Never Smokeless Tobacco: Never Alcohol Use Standard Drinks/Week Comments Yes 0 (1 standard drink = 0.6 oz pur e alcohol) Rarely PHQ-2 Answer Date Recorded PHQ-2 Score 0 07/05/2019 Comments Unknown Sex and Gender Information Value Date Recorded Sex Assigned at Not on file Legal Sex Female 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
--- OUTSIDE RECORDS SUMMARY | 2024-11-08 14:02 | XMS_ITS | Encounter Summary ---
Author Organization [facility] Address [address] [place] [address] Care Team Providers Care Mushroom Grower Name Role Phone Gabi Victoria Primary Care Provider +1- [phone] Encounter Details Date Type Department Care Team (Late st Contact Info) Description 10/07/2019 Documentation [facility] Family Medicine [address] [place] [address] Gabi Victoria PA [address] [place], [place] [id number] Social History Tobacco Use Types Packs/Day Years Used Date Smoking Tobacco: Never Smokeless Tobacco: Never Alcohol Use Standard Drinks/Week Comments Yes 0 (1 standard drink = 0.6 oz pur e alcohol) Rarely PHQ-2 Answer Date Recorded PHQ-2 Score 0 07/05/2019 Comments Unknown Sex and Gender Information Value Date Recorded Sex Assigned at Not on file Legal Sex Female 12:08 AM CARDIOPULMONARY TECHNICIAN AND EEG TECH Gender Identity Not on file Sexual Orientation Not on file Occupation Industry Job Start Date Job End Date Retired Not on file Not on file Not on file documented as of this encounter Progress Notes * Diana Quiñones - 10/07/2019 3:55 PM CST IOPULMONARY TECHNICIAN AND EEG TECH documented in this encounter Plan of Treatment Not on file documented as of this encounter Procedures Procedure Name Priority Date/Time Associated Diagnosis Comments DEXA SCAN Routine 09/30/2019 documented in this encounter Results * DEXA SCAN (09/30/2019) DEXA Scan Abnormal Comment:Bassam-Spine (-0.4 ), LT Hip (-0.9), RT Hip (-1.4) us Historical Provider HEALTH MAINTENANCE Final Result documented in this encounter Visit Diagnoses Not on filedocumented in this encounter Care Teams Mushroom Grower Relationship Specialty Start Date End Date Gabi Victoria PA [address] [facility] [address] [place] [address] PCP - General Internal Medicine 02/19/19 documented as of this encounter
--- OUTSIDE RECORDS SUMMARY | 2024-11-08 14:02 | XMS_ITS | Encounter Summary ---
Author Organization [facility] Address [address] [place] [address] Care Team Providers Care Human Anatomy Teacher Name Role Phone Gabi Victoria Primary Care Provider +1- [phone] Encounter Details Date Type Department Care Team (Late st Contact Info) Description 10/01/2019 Documentation [facility] Family Medicine [address] [place] [address] Gabi Victoria PA [address] [place], [place] [id number] Social History Tobacco Use Types Packs/Day Years Used Date Smoking Tobacco: Never Smokeless Tobacco: Never Alcohol Use Standard Drinks/Week Comments Yes 0 (1 standard drink = 0.6 oz pur e alcohol) Rarely PHQ-2 Answer Date Recorded PHQ-2 Score 0 07/05/2019 Comments Unknown Sex and Gender Information Value Date Recorded Sex Assigned at Not on file Legal Sex Female 12: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 Gender Identity Not on file Sexual Orientation Not on file Occupation Industry Job Start Date Job End Date Retired Not on file Not on file Not on file documented as of this encounter Progress Notes * Diana Quiñones - 10/01/2019 4:51 PM CST TATION DESIGN DRAFTSPERSON documented in this encounter Plan of Treatment Not on file documented as of this encounter Procedures Procedure Name Priority Date/Time Associated Diagnosis Comments MAMMOGRAPHY Routine 09/30/2019 documented in this encounter Results * MAMMOGRAPHY (09/30/2019) Mammogram Abnormal Comment:Bassam us Historical Provider HEALTH MAINTENANCE Final Result documented in this encounter Visit Diagnoses Not on filedocumented in this encounter Care Teams Human Anatomy Teacher Relationship Specialty Start Date End Date Gabi Victoria PA [address] [place] [address] PCP - General Internal Medicine 02/19/19 documented as of this encounter
--- OUTSIDE RECORDS SUMMARY | 2024-11-08 14:02 | XMS_ITS | Encounter Summary ---
Author Organization [facility] Address [address] [facility] [address] [place] [address] Care Team Providers Care Senior Sql Server Developer Name Role Phone Gabi Victoria Primary Care Provider +1- [phone] Reason for Visit * Reason Comments Follow-up Patient is here for a 6 week medication f/u. Encounter Details Date Type Department Care Team (Late st Contact Info) Description 02/19/2019 2:45 PM CDT Office Visit [facility] Family Medicine [address] [facility] [address] [place] [phone] Gabi Victoria PA [address] [place] [address] Anxiety (Primary Dx); BMI 23.0-23.9, adult; History of colon polyps Social History Tobacco Use Types Packs/Day Years Used Date Smoking Tobacco: Never Smokeless Tobacco: Never Alcohol Use Standard Drinks/Week Comments Yes 0 (1 standard drink = 0.6 oz pur e alcohol) Rarely Comments Unknown Sex and Gender Information Value Date Recorded Sex Assigned at Not on file Legal Sex Female 12: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 Gender Identity Not on file Sexual Orientation Not on file Occupation Industry Job Start Date Job End Date Retired Not on file Not on file Not on file documented as of this encounter Last Filed Vital Signs Vital Sign Reading Time Taken Comments Blood Pressure 130/72 02/19/2019 3:25 PM CDT Pulse 96 02/19/2019 3:25 PM CDT Temperature - - Respiratory Rate - - Oxygen Saturation 98% 02/19/2019 3:25 PM CDT Inhaled Oxygen Concentration - - Weight 58.7 kg (129 lb 6.4 oz) 02/19/2019 3:25 P M CDT Height 157.5 cm (5' 2 ) 02/19/2019 3:25 PM CDT Body Mass Index 23.67 02/19/2019 3:25 PM CDT documented in this encounter Patient Instructions * Patient Instructions* Gabi Victoria PA - 02/19/2019 2:45 PM CDT Please feel free to call the office if you have any questions or concerns. documented in this encounter Ordered Prescriptions Prescription Sig Dispense Quantity Refills Last Filled Start Date End Date busPIRone (BUSPAR) 5 mg tabletIndications: Generalized Anxiety Disorder Take 1 tablet (5 mg total) by mouth 3 (three) times a day as needed (anxiety) 60 tablet 02/19/[address] (CYMBALTA) 60 mg capsuleIndications :Anxiety Take 1 capsule (60 mg total) by mouth daily 90 capsule 1 02/19/2019 9 clonazePAM (KlonoPIN) 1 mg tabletIndications: Anxiety Take 1 tablet (1 mg total) by mouth 2 (two) times a day 60 tablet 02/19/2019 9 buPROPion XL (WELLBUTRIN XL) 300 mg 24 hr tabletIndications: Anxiety Take 1 tablet (300 mg total) by mouth every morning 90 tablet 1 02/19/2019 9 documented in this encounter Progress Notes * Gabi Victoria PA - 02/19/2019 2:45 PM CDT Images from the original note were not included. Subjective/Objective Patient ID: Ani Ortiz is a 68 y.o. female. Chief Complaint Follow-up (Patient is here for a 6 week medication f/u.) HPI Pt presents to followup anxiety and labs. Started the Cymbalta and can tell a difference. Still having anxiety. Still on the Wellbutrin. Ambien doing well with the sleep. Still very anxious. Has a panic attack almost twice a week. Was taking up to 2mg bid of the Clonazepam and wasn't feeling a quick onset of relief like she did with xanax. Reviewed with patient thatthis formulation will have a longer onset of action and last longer as compared to the quick/short acting Xanax. Once she understood this, it made more sense and she admits the anxiety did decrease for a longer period. Dr. Maryjane PAT who she wants to do her screening colonoscopy. Has order for mamm and DXA from last visit. Hasn't done it yet. Review of Systems Constitutional: Negative for fever. Respiratory: Negative for shortness of breath. Cardiovascular: Negative for chest pain. Gastrointestinal: Negative for constipation and diarrhea. Vitals: 02/19/19 1525 BP: 130/72 BP Location: Left arm Patient Position: Sitting Pulse: 96 SpO2: 98% Weight: 58.7 kg (129 lb 6.4 oz) Height: 157.5 cm (5' [...] visit: Anxiety (F41.9) (Primary) Assessment & Plan: Continue the Cymbalta. She is to continue with the Clonazepam and use it bid with the expectation of a longer acting anxiety medication. Not instant. Will provide Buspar to use up to tid prn for increased anxiety effects. Reviewed risks, benefit, alternatives, side effects and proper use. Orders: - buPROPion XL (WELLBUTRIN XL) 300 mg 24 hr tablet; Take 1 tablet (300 mg total) by mouth every morning - clonazePAM (KlonoPIN) 1 mg tablet; Take 1 tablet (1 mg total) by mouth 2 (two) times a day - DULoxetine DR (CYMBALTA) 60 mg capsule; Take 1 capsule (60 mg total) by mouth daily - busPIRone (BUSPAR) 5 mg tablet; Take 1 tablet (5 mg total) by mouth 3 (three) times a day as needed (anxiety) BMI 23.0-23.9, adult (Z68.23) Assessment & Plan: BMI Follow-up includes: Discussed diet and exercising counseling. History of colon polyps (Z86.010) Assessment & Plan: Followup colonoscopy ordered. Referral sent to Dr. Quintero. Orders: - Ambulatory referral to Gastroenterology; Future [facility] documented in this encounter Miscellaneous Notes * Assessment & Plan Note - Gabi Victoria PA - 02/23/2019 9:32 PM CDT Associated Problem(s): History of colon polyps Followup colonoscopy ordered. Referral sent to Dr. Quintero. * Assessment & Plan Note - Gabi Victoria PA - 02/23/2019 9:27 PM CDT Associated Problem(s): Anxiety Continue the Cymbalta. She is to continue with the Clonazepam and use it bid with the expectation of a longer acting anxiety medication. Not instant. Will provide Buspar to use up to tid prn for increased anxiety effects. Reviewed risks, benefit, alternatives, side effects and proper use. * Assessment & Plan Note - Gabi Victoria PA - 02/23/2019 9:27 PM CDT Associated Problem(s): Encounter for screening colonoscopy (Deleted) Referral to Dr. Quintero for screening colonoscopy * Assessment & Plan Note - Jacqui Marcus MA - 02/19/2019 3:28 PM CDT Associated Problem(s): BMI 23.0-23.9, adult (Resolved 06/30/2019) BMI Follow-up includes: Discussed diet and exercising counseling. documented in this encounter Plan of Treatment Not on file documented as of this encounter Visit Diagnoses Diagnosis Anxiety- Primary Anxiety state, unspecified BMI 23.0-23.9, adult History of colon polyps documented in this encounter Discontinued Medications Medication Sig Discontinue Reason Start Date End Da te buPROPion XL (WELLBUTRIN XL) 300 mg 24 hr tablet TK 1 T PO QD IN THE MORNING Reorder 12/23/2018 02/19/2019 clonazePAM (KlonoPIN) 0.5 mg tablet Reorder 12/31/2018 02/19/[address] (CYMBALTA) 60 mg capsule TK 1 C PO QD Reorder 01/28/2019 02/19/2019 documented as of this encounter Historical Medications * This list may reflect changes made after this encounter. buPROPion XL (WELLBUTRIN XL) 300 mg 24 hr tablet TK 1 T PO QD IN THE MORNING 1 12/23/2018 02/19/2019 clonazePAM (KlonoPIN) 0.5 mg tablet 0 12/31/2018 02/19/[address] (CYMBALTA) 60 mg capsule TK 1 C PO QD 0 01/28/2019 02/19/2019 zolpidem (AMBIEN) 10 mg tablet TK 1 T PO ONCE D HS PRN 1 12/24/2018 09/09/2019 valACYclovir (VALTREX) 1 gram tablet as needed 1 12/31/2018 02/26/2023 rosuvastatin (CRESTOR) 20 mg tablet TK 1 T PO QD 1 01/28/2019 08/06/2019 added in this encounter Care Teams Senior Sql Server Developer Relationship Specialty Start Date End Date Gabi Victoria PA [address] [place] [address] PCP - General Internal Medicine 02/19/19 documented as of this encounter
--- OUTSIDE RECORDS SUMMARY | 2024-11-08 14:02 | XMS_ITS | Encounter Summary ---
Author Organization [facility] Address [address] [facility] [address] [place] [address] Care Team Providers Care Visual Arts Teacher Name Role Phone Gabi Victoria Primary Care Provider +1- [phone] Encounter Details Date Type Department Care Team (Late st Contact Info) Description 06/06/2019 Orders Only [facility] Health Information Management [address] [place] [address] Scanning, Provider Social History Tobacco Use Types Packs/Day Years Used Date Smoking Tobacco: Never Smokeless Tobacco: Never Alcohol Use Standard Drinks/Week Comments Yes 0 (1 standard drink = 0.6 oz pur e alcohol) Rarely Comments Unknown Sex and Gender Information Value Date Recorded Sex Assigned at Not on file Legal 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 Gender Identity Not on file Sexual Orientation Not on file Occupation Industry Job Start Date Job End Date Retired Not on file Not on file Not on file documented as of this encounter Plan of Treatment Not on file documented as of this encounter Procedures Procedure Name Priority Date/Time Associated Diagnosis Comments GI - RESULT 06/06/2019 4:19 AM CDT documented in this encounter Results * GI - RESULT (06/06/2019 4:19 AM CDT) Anatomical Region Laterality Modality Other us Provider Scanning Final Result documented in this encounter Visit Diagnoses Not on filedocumented in this encounter Care Teams Visual Arts Teacher Relationship Specialty Start Date End Date Gabi Victoria PA [address] [place], [place] [phone] PCP - General Internal Medicine 02/19/19 documented as of this encounter
--- OUTSIDE RECORDS SUMMARY | 2024-11-08 14:02 | XMS_ITS | Encounter Summary ---
Author Organization [facility] Address [address] [facility] [address] [place] [address] Care Team Providers Care Cable Wirer Name Role Phone Gabi Victoria Primary Care Provider +1- [phone] Reason for Visit * Reason Comments Follow-up Patient is to f/u on chronic conditions. Encounter Details Date Type Department Care Team (Latest Contact Info) Description 08/25/2019 7:30 AM CDT Office Visit [facility] Family Medicine [address] [place] [address] Gabi Victoria PA [address] [facility] [address] [address] [place] [address] Anxiety (Primary Dx); Chronic kidney disease (CKD), stage III (moderate) (CMS/HCC); Cough; BMI 24.0-24.9, adult; Need for 23-polyvalent pneumococcal polysaccharide vaccine Social History Tobacco Use Types Packs/Day Years Used Date Smoking Tobacco: Never Smokeless Tobacco: Never Alcohol Use Standard Drinks/Week Comments Yes 0 (1 standard drink = 0.6 oz pur e alcohol) Rarely PHQ-2 Answer Date Recorded PHQ-2 Score 0 07/05/2019 Comments Unknown Sex and Gender Information Value Date Recorded Sex Assigned at Not on file Legal Sex Female 12:08 AM SNOW REMOVAL/PLOWING Gender Identity Not on file Sexual Orientation Not on file Occupation Industry Job Start Date Job End Date Retired Not on file Not on file Not on file documented as of this encounter Last Filed Vital Signs Vital Sign Reading Time Taken Comments Blood Pressure 130/68 08/25/2019 7:50 AM CDT Pulse - - Temperature 37 ??C (98.6 ??F) 08/25/2019 7:50 AM CDT Respiratory Rate - - Oxygen Saturation - - Inhaled Oxygen Concentration - - Weight 62.5 kg (137 lb 12.8 oz) 08/25/2019 7:50 AM CDT Height 157.5 cm (5' 2 ) 08/25/2019 7:50 AM CDT Body Mass Index 25.2 08/25/2019 7:50 AM CDT documented in this encounter Ordered Prescriptions Prescription Sig Dispense Quantity Refills Last Filled Start Date End Date buPROPion XL (WELLBUTRIN XL) 300 mg 24 hr tabletIndications: Anxiety Take 1 tablet (300 mg total) by mouth every morning 90 tablet 1 08/25/2019 0 clonazePAM (KlonoPIN) 1 mg tabletIndications: Anxiety Take 1 tablet (1 mg total) by mouth 2 (two) times a day 20 tablet 08/25/2019 9 busPIRone (BUSPAR) 15 mg tabletIndications: Generalized Anxiety Disorder Take 1 tablet (15 mg total) by mouth 3 (three) times a day 270 tablet 1 08/25/[address] (CYMBALTA) 60 mg capsuleIndications :Anxiety Take 1 capsule (60 mg total) by mouth daily 90 capsule 1 08/25/2019 0 documented in this encounter Progress Notes * Gabi Victoria PA - 08/25/2019 7:30 AM CDT Images from the original note were not included. Subjective/Objective Patient ID: Ani Ortiz is a 69 y.o. female. Chief Complaint Follow-up (Patient is to f/u on chronic conditions.) HPI Pt presents to followup chronic condition. Needs Pneumo 25 Husbands' 4th anniversary is coming up in September. Very tearful. Has good support with family and friends--just tearful right now. On Cymbalta 60mg and [id number]. On Buspar 10mg tid. Using Klonipin 1mg bid. Feels like she wants better control of the anxiety especially right now. Still has a cough. Didn't respond to allergy meds. Had a history of GERD in the past while on bisphosphonates--Denies those sxs right now. She still thinks it is related to PND so wants to monitor. Review of Systems Constitutional: Negative for fever. HENT: Negative for congestion. Respiratory: Negative for shortness of breath. Cardiovascular: Negative for chest pain. Gastrointestinal: Negative for constipation and diarrhea. Vitals: 08/25/19 0750 BP: 130/68 BP Location: Left arm Patient Position: Sitting Temp: 37 ??C (98.6 ??F) TempSrc: Oral Weight: 62.5 kg (137 lb 12.8 oz) Height: 157.5 cm (5' 2 ) Physical Exam Constitutional: She is oriented to person, place, and time. She appears well-developed. HENT: Head: Normocephalic and atraumatic. Cardiovascular: Normal rate and regular rhythm. No murmur heard. Pulmonary/Chest: Effort normal and breath sounds normal. Abdominal: Soft. There is no tenderness. Neurological: She is alert and oriented to person, place, and time. Skin: Skin is warm and dry. No rash noted. Nursing note and vitals reviewed. Assessment/Plan Diagnoses and all orders for this visit: Anxiety (F41.9) (Primary) Assessment & Plan: Continue Cymbalta, Wellbutrin and prn Klonipin. Increase Buspar to 15mg tid. Encouraged counseling. Call if needs assistance during this time. Orders: - DULoxetine DR (CYMBALTA) 60 mg capsule; Take 1 capsule (60 mg total) by mouth daily - busPIRone (BUSPAR) 15 mg tablet; Take 1 tablet (15 mg total) by mouth 3 (three) times a day - clonazePAM (KlonoPIN) 1 mg tablet; Take 1 tablet (1 mg total) by mouth 2 (two) times a day - buPROPion XL (WELLBUTRIN XL) 300 mg 24 hr tablet; Take 1 tablet (300 mg total) by mouth every morning Chronic kidney disease (CKD), stage III (moderate) (CMS/HCC) (N18.3) Assessment & Plan: Avoid NSAIDs. Cough (R05) Assessment & Plan: Continue with otc/allergy meds and monitor. If continues thru fall may consider trial PPI BMI 24.0-24.9, adult (Z68.24) Assessment & Plan: Weight/BMI is in healthy range. Continue healthy lifestyle to maintain. Need for 23-polyvalent pneumococcal polysaccharide vaccine (Z23) Assessment & Plan: Updated in office today Other orders - Pneumococcal polysaccharide vaccine 23-valent greater than or equal to 2yo subcutaneous/IM (PNEUMOVAX) Gabi Victoria PA-C REMOVAL/PLOWING documented in this encounter Miscellaneous Notes * Assessment & Plan Note - Gabi Victoria PA - 08/25/2019 8:34 AM CDT Associated Problem(s): Need for 23-polyvalent pneumococcal polysaccharide vaccine (Resolved 10/20/2019) Updated in office today * Assessment & Plan Note - Gabi Victoria PA - 08/25/2019 8:32 AM CDT Associated Problem(s): Anxiety Continue Cymbalta, Wellbutrin and prn Klonipin. Increase Buspar to 15mg tid. Encouraged counseling. Call if needs assistance during this time. * Assessment & Plan Note - Gabi Victoria PA - 08/25/2019 8:29 AM CDT Associated Problem(s): Stage 3a chronic kidney disease (HCC) Avoid NSAIDs. * Assessment & Plan Note - Gabi Victoria PA - 08/25/2019 8:28 AM CDT Associated Problem(s): Cough Continue with otc/allergy meds and monitor. If continues thru fall may consider trial PPI * Assessment & Plan Note - Jacqui Marcus MA - 08/25/2019 7:55 AM CDT Associated Problem(s): BMI 24.0-24.9, adult (Resolved 09/02/2024) Weight/BMI is in healthy range. Continue healthy lifestyle to maintain. documented in this encounter Plan of Treatment Not on file documented as of this encounter Visit Diagnoses Diagnosis Anxiety- Primary Anxiety state, unspecified Chronic kidney disease (CKD), stage III (moderate) (HCC) Chronic kidney disease, Stage III (moderate) Cough BMI 24.0-24.9, adult Need for 23-polyvalent pneumococcal polysaccharide vaccine documented in this encounter Discontinued Medications Medication Sig Discontinue Reason Start Date End Da te busPIRone (BUSPAR) 10 mg tabletIndications:Genera lized Anxiety Disorder Take 1 tablet (10 mg total) by mouth 3 (three) times a day 06/30/2019 08/25/[address] (CYMBALTA) 60 mg capsuleIndications:Anxie ty Take 1 capsule (60 mg total) by mouth daily Reorder 06/30/2019 08/25/2019 clonazePAM (KlonoPIN) 1 mg tabletIndications:Anxiet y Take 1 tablet (1 mg total) by mouth 2 (two) times a day Reorder 06/30/2019 08/25/2019 buPROPion XL (WELLBUTRIN XL) 300 mg 24 hr tabletIndications:Anxiet y Take 1 tablet (300 mg total) by mouth every morning Reorder 06/30/2019 08/25/2019 documented as of this encounter Orders Immunization/Injection Count Last Ordered Date First Ordered Date PNEUMOCOCCAL POLYSACCHARIDE VACCINE 23-VALENT =>2YO SQ IM 1 08/25/2019 documented in this encounter Care Teams Cable Wirer Relationship Specialty Start Date End Date Gabi Victoria PA [address] [address] PCP - General Internal Medicine 02/19/19 documented as of this encounter
--- OUTSIDE RECORDS SUMMARY | 2024-11-08 14:10 | XMS_ITS ---
Author Organization [facility] Address [address] [place], [place] [id number] Care Team Providers Care Medical Technicians Name Role Phone Answer, Declined Unavailable Unavailable EDISON RINCON Unavailable [phone] Allergies Allergen (clinical drug ingredient) Drug/Non Drug Allergy documented on EMR Reaction Allergy Type Onset Date Status Penicillin Unknown Drug Allergy Active Shellfish (FN) Shellfish-derived Products Unknown Drug Allergy Active REASON FOR VISIT Ankle fx check w/xrays Medications Medication SIG (Take, Route, Frequency, Duration) Notes Start Date End Date Status HYDROcodone-Acetaminophen 5-325 MG 1 tablet as needed Orally every 4-6 hrs As needed for pain 04/18/2024 Active Encounters Encounter Location Date Provider Diagnosis [facility] [address] [place], [place] [id number] 06/19/2024 EDIOSN RINCON Sprain of anterior talofibular ligament of left ankle, subsequent encounter S93.492D ; Nondisplaced comminuted fracture of shaft of left fibula, subsequent encounter for closed fracture with routine healing S82.455D ; Acute left ankle pain M25.572 and Left foot pain M79.672 Assessments Encounter Date Diagnosis (ICD Code) Assessment Notes Treatment Notes Treatment Clinical Notes Section Notes 06/19/2024 Sprain of anterior talofibular ligament of left ankle, subsequent encounter (ICD-10 - S93.492D) 06/19/2024 Nondisplaced comminuted fracture of shaft of left fibula, subsequent encounter for closed fracture with routine healing (ICD-10 - S82.455D) 06/19/2024 Acute left ankle pain (ICD-10 - M25.572) 06/19/2024 Left foot pain (ICD-10 - M79.672) 06/19/2024 Other Normal activities: Patient may return to normal activities as tolerated. Plan Of Treatment Treatment Notes Assessment Notes Other Normal activities: P atient may return to normal activities as tolerated. Progress Notes * Ani ESQUIVELDOB: 1950 (74 yo F)Acc No.[id number]:06/19/2024 Patient:?Ap ESQUIVEL Provider:?Edison Rincon DPM :1950???Age:74 Y???Sex:Female D ate:06/19/2024 Address:[address] [place], [place] [id number] Subjective: * Chief Complaints: * ???1. Ankle fx check w/xrays . * HPI: ???HPI:?Follow Up Visit?Patient presents for follow up visit for a fracture in her left ankle. Patient states it is doing much better. Patient states their problem is improving. MA: sea.? * Medical History:?Kidney ston es, Respiratory disease, Heart/disease/failure, Restless leg syndrome. * Medications:?Taking HYDROcod one-Acetaminophen 5-325 MG Tablet 1 tablet as needed Orally every 4-6 hrs As needed for pain * Allergies:?Shellfish-derived Products, Penicillin. Objective: * Examination: ???Constitutional: ?Constitutional?The patient is awake, alert, well developed, well groomed and well nourished. .?Dermatologic: ?Skin findings:?Skin is warm, dry, supple with no breaks in the skin. .?Nail pathology:?Nails 1-5 bilateral are normal in appearance and thickness. No discoloration. .?Ulcer:?There is no evidence of ulceration noted at this time .?Hyperkeratotic Skin Lesion?There is no evidence of hyperkeratosis .?Musculoskeletal: ?Muscle Strength?Muscle strength is 5/5 in regards to dorsiflexion, plantarflexion, inversion, and eversion in bilateral lower extremities. .?Foot Structure?The foot structure is noted to be normal bilaterally .?Pain on palpation?There is no pain on palpation .?Gait?There is normal gait noted .?Neurologic: ?Muscle power:?5/5 bilaterally .?Gross sensation?Gross sensation is intact to light touch. .?Vascular: ?Dorsalis pedis pulse:?2/4 bilateral .?Posterior tibial pulse:?2/4 bilaterally .?Capillary refill:?less than 3 seconds bilaterally .?Temperature gradient:?within normal limits .?X-Ray: ?LEFT ANKLE?There is no evidence of fracture, dislocation, or other osseous lesions. Healing is noted. .? Assessment: * Assessment: 1.?Sprain of anterior talofi bular ligament of left ankle, subsequent encounter - S93.492D (Primary)?2.?Nondisplaced comminuted fracture of shaft of left fibula, subsequent encounter for closed fracture with routine healing - S82.455D?3.?Acute left ankle pain - M25.572?4.?Left foot pain - M79.672? Plan: * Treatment: * Procedure Codes:?31040 X-RAY EXAM OF ANKLE, Modifiers: LT * Billing Information: * Visit Code:? 47988 Office Visit, Est Pt., Level 3. * Procedure Codes:? 01755 X-RAY EXAM OF ANKLE. Modifiers: LT * Sign off status: Completed true * Provider:?Edison Rincon DPM Date: ?06/19/2024 Generated for Ian leiva/Jena/Madinaitting on:?11/08/2024 02:10 PM DATA DEVELOPER History and Physical Notes * HPI (History of Present Illness) Category Sub-Category Detail Notes Category Not es HPI Follow Up Visit Patient presents for follow up visit for a fracture in her left ankle. Patient states it is doing much better. Patient states their problem is improving. MA: lamberto Examination Category Sub-Category Detail Notes Category Not es X-Ray LEFT ANKLE There is no evid ence of fracture, dislocation, or other osseous lesions. Healing is noted. Constitutional Constitutional The patient is a wake, alert, well developed, well groomed and well nourished. Dermatologic Skin findings: Skin is warm, dr y, supple with no breaks in the skin. Nail pathology: Nails 1-5 bilateral are normal in appearance and thickness. No discoloration. Ulcer: There is no evidence of ulceration noted at this time Hyperkeratotic Skin Lesion There is no e vidence of hyperkeratosis Musculoskeletal Muscle Strength Muscle strength is 5/5 in regards to dorsiflexion, plantarflexion, inversion, and eversion in bilateral lower extremities. Pain on palpation There is no pain on palpation Foot Structure The foot structure i s noted to be normal bilaterally Gait There is normal gait noted Neurologic Muscle power: 5/5 bilaterally Gross sensation Gross sensation is i ntact to light touch. Vascular Dorsalis pedis pulse: 2/4 bilateral Posterior tibial pulse: 2/4 bilaterally Capillary refill: less than 3 seconds bilaterally Temperature gradient: within normal limi ts
--- OUTSIDE RECORDS SUMMARY | 2024-11-08 14:11 | XMS_ITS ---
[facility] Address [address] [place], [place] [address] Care Team Providers Care Artist Mannequin Coloring Name Role Phone Answer, Declined Unavailable Unavailable EDISON RINCON Unavailable [phone] REASON FOR VISIT ankle fracture with xrays Medications Medication SIG (Take, Route, Frequency, Duration) Notes Start Date End Date Status Nabumetone 500 MG 1 tablet Orally Twic e a day for 30 day(s) 04/17/2024 05/17/2024 Active HYDROcodone-Acetaminophen 5-325 MG 1 tablet as needed Orally every 4-6 hrs As needed for pain 04/18/2024 Active Nabumetone 500 MG 1 tablet Orally Twic e a day for 30 day(s) 04/17/2024 05/17/2024 Active Encounters Encounter Location Date Provider Diagnosis [facility] [place] [address] [place], [place] [id number] 05/08/2024 EDISON RINCON Sprain of anterior talofibular ligament of left ankle, subsequent encounter S93.492D ; Nondisplaced comminuted fracture of shaft of left fibula, subsequent encounter for closed fracture with routine healing S82.455D ; Left foot pain M79.672 and Pain in left ankle and joints of left foot M25.572 Assessments Encounter Date Diagnosis (ICD Code) Assessment Notes Treatment Notes Treatment Clinical Notes Section Notes 05/08/2024 Sprain of anterior talofibular ligament of left ankle, subsequent encounter (ICD-10 - S93.492D) 05/08/2024 Nondisplaced comminuted fracture of shaft of left fibula, subsequent encounter for closed fracture with routine healing (ICD-10 - S82.455D) 05/08/2024 Left foot pain (ICD-10 - M79.672) 05/08/2024 Pain in left ankle and joints of left foot (ICD-10 - M25.572) 05/08/2024 Other Continue current therapy. Plan Of Treatment Treatment Notes Assessment Notes Other Continue current the rapy. Progress Notes * Ani ESQUIVELDOB: 1950 (74 yo F)Acc No.[id number]:05/08/2024 Patient:?Ap ESQUIVEL aleksey Provider:?Edison Rincon DPM :1950???Age:74 Y???Sex:Female D ate:05/08/2024 Address:[address] [place], [place] [id number] Subjective: * Chief Complaints: * ???1. Ankle fracture with xr ays. * HPI: ???HPI:?Follow Up Visit?Patient presents for follow-up visit for a fracture in her left ankle. Patient states her ankle still hurts some on the lateral side, but it is improving. She has been icing it and it is feeling better. MA: sea.? * ROS:?General / Constitutional:?Patient denies?chills, fever.?Endocrine:?Patient denies?excessive thirst, frequent urination.?Cardiovascular:?Patient denies?shortness of breath, chest pain.?Skin:?Patient denies?mole changes.? * Medical History:? * Medications:?Taking Nabumeto ne 500 MG Tablet 1 tablet Orally Twice a day , stop date 05/17/2024, Taking Nabumetone 500 MG Tablet 1 tablet Orally Twice a day , stop date 05/17/2024, Taking HYDROcodone-Acetaminophen 5-325 MG Tablet 1 tablet as needed Orally every 4-6 hrs As needed for pain Objective: * Examination: ???Physical Examination: ?Gen:?The patient is awake, alert, well developed, well groomed and well nourished. They are in no apparent distress. .?Musc:?Foot structure is normal. No abnormalities noted. Muscle strength is 5/5 to all joints bilaterally. Pain on palpation of left ankle joint and lateral malleolus.?Derm:?Skin is warm and dry, with no rashes, good skin turgor and normal hair distribution. .?Neuro:?Grossly intact to light touch bilateral..?Vasc:?Dorsalis pedis and posterior tibial pulses 2+ bilaterally. No edema noted. Capillary fill time < 3 seconds to all digits. .?X-Ray: ?LEFT ANKLE?Non-displaced fracture noted in the fibula Healing is noted. .? Assessment: * Assessment: 1.?Sprain of anterior talofi bular ligament of left ankle, subsequent encounter - S93.492D (Primary)?2.?Nondisplaced comminuted fracture of shaft of left fibula, subsequent encounter for closed fracture with routine healing - S82.455D?3.?Left foot pain - M79.672?4.?Pain in left ankle and joints of left foot - M25.572? Plan: * Treatment: * Procedure Codes:?84598 X-RAY EXAM OF ANKLE, Modifiers: LT * Billing Information: * Visit Code:? 07161 Office Visit, Est Pt., Level 3. * Procedure Codes:? 63344 X-RAY EXAM OF ANKLE. Modifiers: LT * Sign off status: Completed true * Provider:?Edison Rincon DPM Date: ?05/08/2024 Generated for Ian leiva/Jena/Ant on:?11/08/2024 02:10 PM CORPORATE DIRECTOR History and Physical Notes * HPI (History of Present Illness) Category Sub-Category Detail Notes Category Not es HPI Follow Up Visit Patient presents for follow-up visit for a fracture in her left ankle. Patient states her ankle still hurts some on the lateral side, but it is improving. She has been icing it and it is feeling better. MA: sea Examination Category Sub-Category Detail Notes Category Not es X-Ray LEFT ANKLE Non-displaced fr acture noted in the fibula Healing is noted. Physical Examination Gen: The patient is awake, alert, well developed, well groomed and well nourished. They are in no apparent distress. Vasc: Dorsalis pedis and p osterior tibial pulses 2+ bilaterally. No edema noted. Capillary fill time < 3 seconds to all digits. Neuro: Grossly intact to li ght touch bilateral. Musc: Foot structure is no rmal. No abnormalities noted. Muscle strength is 5/5 to all joints bilaterally. Pain on palpation of left ankle joint and lateral malleolus Derm: Skin is warm and dry , with no rashes, good skin turgor and normal hair distribution.
--- OUTSIDE RECORDS SUMMARY | 2024-11-08 14:11 | XMS_ITS ---
Author [facility] Address [address] [place], [place] [address] Care Team Providers Care Shell Press Operator Name Role Phone Answer, Declined Unavailable Unavailable EDISON RINCON Unavailable [phone] Allergies Allergen (clinical drug ingredient) Drug/Non Drug Allergy documented on EMR Reaction Allergy Type Onset Date Status Penicillin Unknown Drug Allergy Active Shellfish (FN) Shellfish-derived Products Unknown Drug Allergy Active REASON FOR VISIT Ankle Fracture ck w/xrays Medications Medication SIG (Take, Route, Frequency, Duration) Notes Start Date End Date Status HYDROcodone-Acetaminophen 5-325 MG 1 tablet as needed Orally every 4-6 hrs As needed for pain 04/18/2024 Active Encounters Encounter Location Date Provider Diagnosis [facility] [place] [address] [place], [place] [id number] 05/29/2024 EDISON RINCON Sprain of anterior talofibular ligament of left ankle, subsequent encounter S93.492D ; Nondisplaced comminuted fracture of shaft of left fibula, subsequent encounter for closed fracture with routine healing S82.455D ; Left foot pain M79.672 and Pain in left ankle and joints of left foot M25.572 Assessments Encounter Date Diagnosis (ICD Code) Assessment Notes Treatment Notes Treatment Clinical Notes Section Notes 05/29/2024 Sprain of anterior talofibular ligament of left ankle, subsequent encounter (ICD-10 - S93.492D) 05/29/2024 Nondisplaced comminuted fracture of shaft of left fibula, subsequent encounter for closed fracture with routine healing (ICD-10 - S82.455D) 05/29/2024 Left foot pain (ICD-10 - M79.672) 05/29/2024 Pain in left ankle and joints of left foot (ICD-10 - M25.572) 05/29/2024 Other Progress to [place]. Plan Of Treatment Treatment Notes Assessment Notes Other Progress to [place]. Progress Notes * Ani ESQUIVELDOB: 1950 (74 yo F)Acc No.[id number]:05/29/2024 Patient:?Ap ESQUIVEL Provider:?Edison Rincon DPM :1950???Age:74 Y???Sex:Female D ate:05/29/2024 Address:[address] [place], [place] [id number] Subjective: * Chief Complaints: * ???1. Ankle Fracture ck w/xr ays. * HPI: ???HPI:?Follow Up Visit?Patient presents for follow up visit for left ankle fracture. Patient states their problem is improving. She states she onlt really has pain if she moves her foot a certain way. MA: sea.? * ROS:?General / Constitutional:?Patient denies?chills, fever.?Endocrine:?Patient denies?excessive thirst, frequent urination.?Cardiovascular:?Patient denies?shortness of breath, chest pain.?Skin:?Patient denies?mole changes.? * Medical History:?Kidney ston es, Respiratory disease, Heart/disease/failure, Restless leg syndrome. * Medications:?Taking HYDROcod one-Acetaminophen 5-325 MG Tablet 1 tablet as needed Orally every 4-6 hrs As needed for pain * Allergies:?Shellfish-derived Products, Penicillin. Objective: * Examination: ???Physical Examination: ?Gen:?The patient [...] - M25.572? Plan: * Treatment: * Procedure Codes:?78263 X-RAY EXAM OF ANKLE, Modifiers: LT , L1902 AFO OFELIA CREWSLT PREFAB W/FIT&ADJ, Modifiers: LT , GA * Billing Information: * Visit Code:? 06876 Office Visit, Est Pt., Level 3. * Procedure Codes:? 61994 X-RAY EXAM OF ANKLE. Modifiers: LT L1902 AFO OFELIA EATON PREFAB W/FIT&ADJ. Modifiers: LT, GA * Sign off status: Completed true * Provider:?Edison Rincon DPM Date: ?05/29/2024 Generated for Ian leiva/Jena/Ant on:?11/08/2024 02:10 PM FUGITIVE DETECTIVE History and Physical Notes * HPI (History of Present Illness) Category Sub-Category Detail Notes Category Not es HPI Follow Up Visit Patient presents for follow up visit for left ankle fracture. Patient states their problem is improving. She states she onlt really has pain if she moves her foot a certain way. MA: sea Examination Category Sub-Category Detail Notes [...]
--- OUTSIDE RECORDS SUMMARY | 2024-11-08 14:11 | XMS_ITS | Patient Health Record ---
Author Organization [facility] Address [address] [facility] [address] [place], [place] [id number] Care Team Providers Care Assistant Wrestling Coach Name Role Phone Answer, Declined Unavailable Unavailable MARIS EDISON Unavailable [phone] EDISON ANGULO Unavailable [phone] Allergies Allergen (clinical drug ingredient) Drug/Non Drug Allergy documented on EMR Reaction Allergy Type Onset Date Status Penicillin Unknown Drug Allergy Active Shellfish (FN) Shellfish-derived Products Unknown Drug Allergy Active Reason For Referral No Information Medications Medication SIG (Take, Route, Frequency, Duration) Notes Start Date End Date Status HYDROcodone-Acetaminophen 5-325 MG 1 tablet as needed Orally every 4-6 hrs As needed for pain 04/18/2024 Active Encounters Encounter Location Date Provider Diagnosis [facility] [place] [address] [place] [id number] 04/17/2024 EDISON POLLOCK Sprain of anterior talofibular ligament of left ankle, initial encounter S93.492A ; Nondisplaced comminuted fracture of shaft of left fibula, initial encounter for closed fracture S82.455A and Pain in left ankle and joints of left foot M25.572 [facility] [place] [address] [place] [id number] 05/08/2024 EDISON POLLOCK Sprain of anterior talofibular ligament of left ankle, subsequent encounter S93.492D ; Nondisplaced comminuted fracture of shaft of left fibula, subsequent encounter for closed fracture with routine healing S82.455D ; Left foot pain M79.672 and Pain in left ankle and joints of left foot M25.572 [facility] [address] [place] [id number] 05/29/2024 EDISON MARIS Sprain of anterior talofibular ligament of left ankle, subsequent encounter S93.492D ; Nondisplaced comminuted fracture of shaft of left fibula, subsequent encounter for closed fracture with routine healing S82.455D ; Left foot pain M79.672 and Pain in left ankle and joints of left foot M25.572 [facility] [place] [address] [place] [id number] 06/19/2024 EDISON MARIS Sprain of anterior talofibular ligament of left ankle, subsequent encounter S93.492D ; Nondisplaced comminuted fracture of shaft of left fibula, subsequent encounter for closed fracture with routine healing S82.455D ; Acute left ankle pain M25.572 and Left foot pain M79.672 [facility] [address] [place], [place] [id number] 04/17/2024 EDISON POLLOCK [facility] [place] [address] [place], [place] [id number] 04/17/2024 EDISON POLLOCK [facility] [address] [id number] 04/18/2024 EDISON ANGULO Assessments Encounter Date Diagnosis (ICD Code) Assessment Notes Treatment Notes Treatment Clinical Notes Section Notes 04/17/2024 Nondisplaced comminuted fracture of shaft of left fibula, initial encounter for closed fracture (ICD-10 - S82.455A) 04/17/2024 Sprain of anterior talofibular ligament of left ankle, initial encounter (ICD-10 - S93.492A) 05/08/2024 Nondisplaced comminuted fracture of shaft of left fibula, subsequent encounter for closed fracture with routine healing (ICD-10 - S82.455D) 05/08/2024 Sprain of anterior talofibular ligament of left ankle, subsequent encounter (ICD-10 - S93.492D) 05/29/2024 Sprain of anterior talofibular ligament of left ankle, subsequent encounter (ICD-10 - S93.492D) 06/19/2024 Nondisplaced comminuted fracture of shaft of left fibula, subsequent encounter for closed fracture with routine healing (ICD-10 - S82.455D) 06/19/2024 Sprain of anterior talofibular ligament of left ankle, subsequent encounter (ICD-10 - S93.492D) 04/17/2024 Pain in left ankle and joints of left foot (ICD-10 - M25.572) 06/19/2024 Acute left ankle pain (ICD-10 - M25.572) 05/29/2024 Nondisplaced comminuted fracture of shaft of left fibula, subsequent encounter for closed fracture with routine healing (ICD-10 - S82.455D) 05/08/2024 Left foot pain (ICD-10 - M79.672) 05/08/2024 Pain in left ankle and joints of left foot (ICD-10 - M25.572) 05/29/2024 Left foot pain (ICD-10 - M79.672) 06/19/2024 Left foot pain (ICD-10 - M79.672) 05/29/2024 Pain in left ankle and joints of left foot (ICD-10 - M25.572) 04/17/2024 Other Dispense: A cam walker was fitted and dispensed. The patient was instructed in its use. 05/08/2024 Other Continue current therapy. 05/29/2024 Other Progress to [place]. 06/19/2024 Other Normal activities: Patient may return to normal activities as tolerated. Plan Of Treatment No Information Insurance Providers Payer Name Payer Address Payer Phone Subscriber Number Group Number Insured Name Patient Relationship to Insured Coverage Start Date Coverage End Date [facility] [address] [address] [place] [id number] Valentsprun t, Ani Self - patient is the insured Medical (General) History Medical History History ICD Code kidney stones Respiratory disease heart/disease/failure restless leg syndrome
--- OUTSIDE RECORDS SUMMARY | 2024-11-08 14:11 | XMS_ITS | Patient Health Record ---
Author Organization [facility] Address [address] [place] [address] Care Team Providers Care Inspector Floor Sub Assembly Name Role Phone Julien APPEALS AND GENERALIST CLERK, Gabi Primary Care Provider Dago MON MD, AMRIT Unavailable [phone] REASON FOR REFERRAL No Information PROBLEMS Problem Type ICD Code Onset Dates Problem Status W/U Status Risk SNOMED Code Notes Problem Personal history of colonic polyps (Z86.010) Active confirmed History of polyp of colon (situation) (190885232) PLAN OF TREATMENT Pending Test Test Name Order Date Colonoscopy 03/06/2019 Insurance Providers Payer Name Payer Address Payer Phone Subscriber Number Group Number Insured Name Patient Relationship to Insured Coverage Start Date Coverage End Date [place] -[place] Medicare [address] [place], [place] [id number] Ani Ortiz Self - patient is the insured [facility] Health Benefits [address] [address] [id number] Ani Ortiz Self - patient is the insured [place] Medicare [address] [address] [place], [place] [phone] [id number] Ani Ortiz Self - patient is the insured
== END 2024-11-01 10:27 | disposition home or self-care (01) ==
PROVIDERS: PCP Physician Assistant; Visit Provider Physician Assistant
DX: Z12.2 Encounter for screening for malignant neoplasm of respiratory organs (principal); Z87.891 Personal history of nicotine dependence
CPT/HCPCS: 71271

== ENCOUNTER 2025-04-24 12:39 | Outpatient (CLI) | payer MEDICARE, SELFPAY ==
--- NOTE | ~2025-04-24 | MR_ITS ---
MRI of the right shoulder Technique: Axial proton-density fat-sat images, coronal proton density fat-sat and T2 fat-sat images, and sagittal T1-weighted and T2 fat-sat images were acquired. Clinical History: Chronic pain Findings: AC joint is intact. Coracoclavicular, coracoacromial, and coracohumeral ligaments are proba pily intact. Supraspinatus and infraspinatus tendons demonstrate moderate tendinosis. Possible low-grade bursal rangel rface partial tear of the posterior most portion of the supraspinatus tendon. Subscapularis tendon is intact with moderate tendinosis. Tendon of the long head of the biceps is intact. No definite labral tear seen. There is thickening and increased signal inferior glenohumeral ligament. There is a small glenohumera l joint effusion. There is mild fluid distention of the subcarinal/subdeltoid bursa. No muscle atroph y evident. There is mild fluid distention of the subscapularis recess of the glenohumeral joint. Impression: Findings compatible with adhesive capsulitis. Moderate diffuse rotator cuff tendinosis with possible low-grade bursal surface partial tear of the p osterior most portion of the supraspinatus tendon. Probable mild subacromial/subdeltoid bursitis. Reviewed, dictated and finalized at location . Impression: Findings compatible with adhesive capsulitis. Moderate diffuse rotator cuff tendinosis with possible low-grade bursal surface partial tear of the posterior most portion of the supraspinatus tendon. Probable mild subacromial/subdeltoid bursitis.
== END 2025-04-24 12:40 | disposition home or self-care (01) ==
LOC: GOSHIMG 12:39
PROVIDERS: PCP Physician Assistant; Visit Provider Orthopaedic Surgery
DX: M25.511 Pain in right shoulder (principal); G89.29 Other chronic pain
CPT/HCPCS: 73221

== ENCOUNTER 2025-10-01 11:18 | Outpatient (CLI) | payer MEDICARE, SELFPAY ==
--- NOTE | ~2025-10-01 | CT_ITS ---
EXAMINATION:CT lung screening DATE: 10/01/2025 11:50 INDICATION: Screening TECHNIQUE: Computed tomography (CT) of the chest was performed without intravenous contrast. The dose-length product (DLP) was 56.46 mGy-cm. COMPARISON: 11/01/2024 FINDINGS: Scattered tiny lung nodules are not grossly changed. No new suspicious nodule or mass seen. No gross acute intrathoracic abnormality. Heart and great vessels normal size. Extensive coronary artery calcification and/or stenting. Degenerative changes in the bony thorax. Several chronic appearing findings described on the previous exam in the upper abdomen not grossly changed. Is include small hiatal hernia, cholecystectomy clips, incompletely characterized cystic masses in the left kidney, also fatty infiltration in the right hemicolon possibly associated chronic inflammatory disease. IMPRESSION: 1. No suspicious lung nodules. Correlate with follow-up low-dose lung cancer screening chest CT in 12 months. Lung RADS 2. 2. Several chronic findings as above. Reviewed, dictated and finalized at location A. FILTERS INSPECTOR IMPRESSION: 1. No suspicious lung nodules. Correlate with follow-up low-dose lung cancer sc reening chest CT in 12 months. Lung RADS 2. 2. Several chronic findings as above.
--- OUTSIDE RECORDS SUMMARY | 2025-10-01 14:07 | XMS_ITS | Patient Health Record ---
Author Organization [facility] Address [address] [place] [address] Care Team Providers Care Panel Wirer Name Role Phone Julien DEFENCE INTELLIGENCE ANALYST, Gabi Primary Care Provider Dago MON MD, AMRIT Unavailable [phone] Reason For Referral No Information Problems Problem Type SNOMED Code ICD Code Onset Dates Problem Status W/U Status Risk Notes Problem History of polyp of colon (situation) (334797090) Personal history of colonic polyps (Z86.010) Active confirmed Plan Of Treatment Pending Test Test Name Order Date Colonoscopy 03/06/2019 Insurance Providers Payer Name Payer Address Payer Phone Subscriber Number Group Number Insured Name Patient Relationship to Insured Coverage Start Date Coverage End Date Medicare -[place] Medicare [address] [place], [place] [id number] Ani Ortiz Self - patient is the insured [facility] Health Benefits [address] [id number] Ani Ortiz Self - patient is the insured [place] [address] [address] [place], [place] [phone] [id number] Ani Ortiz Self - patient is the insured
--- OUTSIDE RECORDS SUMMARY | 2025-10-01 14:08 | XMS_ITS | Patient Health Record ---
Author Organization [facility] Address [address] [place], [place] [phone] Care Team Providers Care Equipment Service Engineer Name Role Phone Answer, Declined Unavailable Unavailable Allergies Allergen (clinical drug ingredient) Drug/Non Drug Allergy documented on EMR Reaction Allergy Type Onset Date Status Penicillin Unknown Drug Allergy Active Shellfish (FN) Shellfish-derived Products Unknown Drug Allergy Active Reason For Referral No Information Medications Medication SIG (Take, Route, Frequency, Duration) Notes Start Date End Date Status HYDROcodone-Acetaminophen 5-325 MG Tablet 1 tablet as needed Orally every 4-6 hrs As needed for pain 04/18/2024 Active Plan Of Treatment No Information Insurance Providers Payer Name Payer Address Payer Phone Subscriber Number Group Number Insured Name Patient Relationship to Insured Coverage Start Date Coverage End Date [facility] [address] [address] [place] [id number] Valentsprun t, Ani Self - patient is the insured Medical (General) History Medical History History ICD Code kidney stones Respiratory disease heart/disease/failure restless leg syndrome
--- OUTSIDE RECORDS SUMMARY | 2025-10-01 14:08 | XMS_ITS | Clinical Summary ---
Author Organization [facility] Address [address] [place] [address] Care Team Providers Care Organizational Development Specialist Name Role Phone Gabi Victoria Primary Care Provider [phone] Allergies Active Allergy Reactions Criticality Noted Date [...] Reviewed options for assistance with cessation. Reviewed residential sequela associated with smoking. Pt declines assistance [...] is on the chart Moderate episode of recurrent major depressive d isorder 01/05/2020 Overview (05/05/2020): Last Assessment & Plan: [...] better with the buspar Chronic kidney disease (CKD), stage III (moderat e) 02/19/2019 Overview (05/05/2020): Last Assessment & Plan: [...] Plan: Continue ambien prn Tremor 02/19/2019 Immunizations Immunization Administration Dates Next Due Fluad influenza vaccine, [...] Scan (General) 2017 COVID-19 Vaccine ( - season) 2025 Influenza Adult (#1) 2025 08/07/2019, 08/19/2018, 08/12/2018, Additional history exists RSV Immunization or 60+ Years (1 - 1-dose 75+ series) 2027 Pneumococcal Vaccine: 50+ Years Completed 08/25/2019, 08/19/2018 Hepatitis A Vaccines Aged Out No long er eligible based on patient's age to complete this topic Meningococcal B Vaccine Aged Out No l onger eligible based on patient's age to complete this topic Meningococcal Vaccine Aged Out No nidhi aleksander eligible based on patient's age to complete this topic RSV Immunizations Under 20 Months Aged Out No longer eligible based on patient's age to complete this topic Insurance GENERIC - COMMERCIAL MEDICARE Care Teams Organizational Development Specialist Relationship Specialty Start Date End Date Gabi Victoria PA [address] [facility] [place] [address] PCP - General PHYSICIAN PERCH MENDER 05/27/20
--- OUTSIDE RECORDS SUMMARY | 2025-10-01 14:08 | XMS_ITS | Clinical Summary ---
Author Organization [facility] [place] [facility] [facility] Address [address] [place] [address] Care Team Providers Care Direct Marketing Representative Name Role Phone Gabi Victoria Primary Care Provider [phone] Allergies Active Allergy Reactions Criticality Noted Date Comments Cephalexin Rash Medium 02/19/2019 Cephalosporins Rash Medium 11/24/2020 Erythromycin Vomiting Low 02/19/2019 Penicillin V Potassium Rash Medium 02/19/2019 Shellfish Unknown 07/16/2025 Medications vit D3-vit E-wbtlnupsa-xeuo [id number] hyoe-ejn-ed-mg tablet Take 50 mcg by mouth Active aspirin 81 mg chewable tabletIndications: Coronary artery calcification seen on CT scan Take 1 tablet (81 mg total) by mouth daily 30 tablet 11 11/24/19 21 Active cyanocobalamin (Vitamin B-12) 100 mcg tabletIndications: Prevention of Vitamin B12 Deficiency Take 1 tablet (100 mcg total) by mouth daily Active fluticasone propionate (FLONASE) 50 mcg/actuation nasal spray SHAKE LIQUID AND USE 2 SPRAYS IN EACH NOSTRIL DAILY 48 g 1 02/01/20 22 Active omeprazole (PriLOSEC) 20 mg capsule TAKE 1 CAPSULE BY MOUTH EVERY DAY DIRECTED 05/28/20 24 Active valACYclovir (VALTREX) 1 gram tablet Take TWO tabs po at onset of cold sore. Take TWO tabs po 12 hours later. 20 tablet 07/28/20 24 Active albuterol HFA (ProAir HFA) 90 mcg/actuation inhaler Inhale 2 puffs every 4 (four) hours as needed for wheezing or shortness of breath 8.5 g 09/19/20 24 Active vortioxetine (Trintellix) 20 mg tabletIndications: Moderate episode of recurrent major depressive disorder (HCC) TAKE 1 TABLET(20 MG) BY MOUTH DAILY 100 tablet 01/25/20 25 Active rosuvastatin (CRESTOR) 40 mg tabletIndications: Coronary artery calcification seen on CT scan,Mixed hyperlipidemia TAKE 1 TABLET(40 MG) BY MOUTH DAILY 100 tablet 1 05/22/20 25 Active buPROPion XL (WELLBUTRIN XL) 300 mg 24 hr tabletIndications: Anxiety TAKE 1 TABLET(300 MG) BY MOUTH EVERY MORNING 90 tablet 1 05/28/20 25 Active busPIRone (BUSPAR) 15 mg tabletIndications: Anxiety Take 1 tablet (15 mg total) by mouth 3 (three) times a day as needed (anxiety) 90 tablet 1 08/11/20 25 Active clonazePAM (KlonoPIN) 1 mg tabletIndications: Anxiety Take 1 tablet (1 mg total) by mouth every 8 (eight) hours as needed for anxiety 30 tablet 09/09/20 25 Active suvorexant (BELSOMRA) 10 mg tablet Take 1 tablet (10 mg total) by mouth nightly 90 tablet 09/10/20 25 Active suvorexant (BELSOMRA) 10 mg tablet Take 1 tablet (10 mg total) by mouth nightly 90 tablet 06/15/20 25 025 Discontin ued(Reord er) clonazePAM (KlonoPIN) 1 mg tabletIndications: Anxiety Take 1 tablet (1 mg total) by mouth every 8 (eight) hours as needed for anxiety 30 tablet 08/11/20 25 025 Discontin ued(Reord er) Hospital, Clinic, or Other Facility Administered Medication Ordered Dose Route Frequency Start Date End Date Status lidocaine (XYLOCAINE) 10 mg/mL (1 %) injection 1 mLIndications:Admi nistration of Local Anesthesia 1 mL One-Time Injection 09/24/2025 09/24/2025 Ended lidocaine (XYLOCAINE) 10 mg/mL (1 %) injection 1 mLIndications:Admi nistration of Local Anesthesia 1 mL One-Time Injection 09/24/2025 09/24/2025 Ended lidocaine (XYLOCAINE) 10 mg/mL (1 %) injection 1 mLIndications:Admi nistration of Local Anesthesia 1 mL One-Time Injection 09/24/2025 09/24/2025 Ended lidocaine (XYLOCAINE) 10 mg/mL (1 %) injection 1 mLIndications:Admi nistration of Local Anesthesia 1 mL One-Time Injection 09/24/2025 09/24/2025 Ended methylPREDNISolone acetate (DEPO-medrol) injection 40 mgIndications:Bila teral hand pain 40 mg intra-artic One-Time Injection 09/24/2025 09/24/2025 Ended methylPREDNISolone acetate (DEPO-medrol) injection 40 mgIndications:Bila teral hand pain 40 mg intra-artic One-Time Injection 09/24/2025 09/24/2025 Ended methylPREDNISolone acetate (DEPO-medrol) injection 40 mgIndications:Bila teral hand pain 40 mg intra-artic One-Time Injection 09/24/2025 09/24/2025 Ended methylPREDNISolone acetate (DEPO-medrol) injection 40 mgIndications:Bila teral hand pain 40 mg intra-artic One-Time Injection 09/24/2025 09/24/2025 Ended Active Problems Patient Care Coordination No te Formatting of this note migh t be different from the original. CAD for BIC Problem Noted Date Diagnosed Date Abdominal pain 08/23/2025 COPD (chronic obstructive pulmonary disease) Chronic rhinitis 05/24/2025 Annual physical exam 03/22/2025 History of kidney stones 03/22/2025 Chronic shoulder pain 03/22/2025 Snores 09/07/2024 Assessment & Plan (09/07/2024 10:49 PM CDT): This is a significant, separately identifiable problem that was evaluated and managed on the same day as the wellness exam Patient has had increased snoring daytime sleepiness and symptoms that may be related to sleep apnea. Recommend referral to sleep Medicine to further evaluate Need for influenza vaccination 09/02/2024 Assessment & Plan (09/07/2024 10:48 PM CDT): Flu vaccine updated in the office today Neck pain 03/08/2024 Assessment & Plan (03/08/2024 11:44 PM CDT): Patient with persistent neck pain and tension headaches. Recommend physical therapy. If symptoms persist encouraged follow-up to reassess Hyperglycemia 04/02/2023 Assessment & Plan (09/25/2023 12:59 PM MEDICAL AUDITOR): Check labs Assessment & Plan (04/02/2023 2:21 [...] 11/27/2020 Assessment & Plan (01/12/2021 9:51 PM MEDICAL AUDITOR): Per Cardio note may monitor Former smoker [...] for low-dose CT. Will place order for [facility] Assessment & Plan (07/18/2021 9:50 PM CDT): Continue to monitor annual LDCT. Next one due 12/2021 Assessment & Plan (01/12/2021 9:52 PM MEDICAL AUDITOR): Due for repeat LDCT after 01/09/2021 Coronary artery calcification seen on CT scan Overview (01/12/2021): LDCT done 12/2019 showed moderate to severe amount of coronary calcifications. Referred to Cardio Dr. Hwang 11/2020 Crestor increased to 40mg to get LDL below 70 [id number] started Stress ECHO appears normal. Assessment & Plan (09/25/2023 12:59 PM MEDICAL AUDITOR): LDCT done 12/2019 showed moderate to severe amount of coronary calcifications. Referred to Cardio Dr. Hwang 11/2020 Crestor increased to 40mg to get LDL below 70 [id number] started Stress ECHO appears normal. Assessment & Plan (08/26/2023 5:36 PM CDT): Referred to Cardio Dr. Hwang 11/2020 Crestor increased to 40mg to get LDL below 70 [id number] started Stress ECHO appears normal. Assessment & Plan (07/18/2021 9:47 PM CDT): Continue ASA and Crestor 40mg. Still follows with Dr. Hwang at least annually Assessment & Plan (01/12/2021 9:51 PM MEDICAL AUDITOR): Referred to Cardio Dr. Hwang 11/2020 Crestor increased to 40mg to get LDL below 70 [id number] started Stress ECHO appears normal. Continue per [...] Klonopin Assessment & Plan (09/25/2023 12:58 PM MEDICAL AUDITOR): Patient states symptoms are much more stable [...] p.r.n. Assessment & Plan (10/07/2021 9:52 PM MEDICAL AUDITOR): Continue Prozac 60 mg. She is on [...] reassess. Assessment & Plan (01/12/2021 9:53 PM MEDICAL AUDITOR): See anxiety Assessment & Plan (08/22/2020 10:47 PM CDT): Continue Prozac, wellbutrin, buspar and klonipin sparinginly Assessment & Plan (01/05/2020 11:18 AM MEDICAL AUDITOR): This is a significant, separately identifiable problem [...] dxa Assessment & Plan (01/12/2021 9:52 PM MEDICAL AUDITOR): DXA due 09/2021 Calcium and vit d Assessment & Plan (01/05/2020 11:14 AM MEDICAL AUDITOR): Encouraged Calcium, Vit D and Weight bearing exercise. Stop smoking. Recheck DXA in 09/2021 Assessment & Plan (10/20/2019 1:42 PM MEDICAL AUDITOR): DXA 09/2019 at [place] [facility] Reviewed results with patient. Encouraged calcium, vit d and exercise. Recheck in 2 years. BMI 24.0-24.9, adult 06/30/2019 Assessment & Plan (08/13/2025 10:09 AM CDT): Weight/BMI is in healthy range. Continue healthy lifestyle to maintain. Assessment & Plan (05/12/2025 9:54 AM CDT): Weight/BMI is in healthy range. Continue healthy lifestyle to maintain. Assessment & Plan (03/08/2024 11:43 PM CDT): Weight/BMI is in healthy range. Continue healthy lifestyle to maintain. Assessment & Plan (08/25/2019 7:55 AM CDT): Weight/BMI is in healthy range. Continue healthy lifestyle to maintain. Assessment & Plan (06/30/2019 7:47 AM CDT): Weight/BMI is in healthy range. Continue healthy lifestyle to maintain. Cough 06/30/2019 Assessment & Plan (02/08/2022 8:01 [...] 40 Assessment & Plan (09/25/2023 12:59 PM MEDICAL AUDITOR): Encouraged patient to follow low fat/low chol [...] Crestor Assessment & Plan (10/07/2021 9:52 PM MEDICAL AUDITOR): Encouraged patient to follow fat/low chol diet like the Mediterranean diet. Increase good fats in the diet. Increase exercise. Monitor labs as needed. Continue statin Assessment & Plan (07/18/2021 9:47 PM CDT): Encouraged patient to follow fat/low chol diet like the Mediterranean diet. Increase good fats in the diet. Increase exercise. Monitor labs as needed. Continue crestor Assessment & Plan (01/12/2021 9:52 PM MEDICAL AUDITOR): Encouraged patient to follow fat/low chol diet like the Mediterranean diet. Increase good fats in the diet. Increase exercise. Monitor labs as needed. Continue crestor Assessment & Plan (08/22/2020 10:45 PM CDT): Encouraged patient to follow fat/low chol diet like the Mediterranean diet. Increase good fats in the diet. Increase exercise. Monitor labs as needed. Crestor daily Assessment & Plan (01/05/2020 11:14 AM MEDICAL AUDITOR): Encouraged patient to continue low fat/low chol diet. Continue exercise. Increase good fats in the diet. Monitor labs as needed. Continue crestor Assessment & Plan (10/20/2019 1:42 PM MEDICAL AUDITOR): Encouraged patient to continue low fat/low chol diet. Continue exercise. Increase good fats in the diet. Monitor labs as needed. Continue Crestor Situational anxiety 02/19/2019 Assessment & Plan (09/25/2023 12:58 PM MEDICAL AUDITOR): Patient states symptoms are much more stable [...] p.r.n. Assessment & Plan (01/12/2021 9:52 PM MEDICAL AUDITOR): Continue Prozac, wellbutrin, buspar and klonipin sparingly Assessment & Plan (08/22/2020 10:45 PM CDT): See depression Assessment & Plan (01/05/2020 11:16 AM MEDICAL AUDITOR): See depression Anxiety/fear better with the buspar Assessment & Plan (10/20/2019 1:42 PM MEDICAL AUDITOR): Continue Cymbalta, Wellbutrin and Buspar. Has Klonipin, [...] 05/2019--->05/2024 Assessment & Plan (01/12/2021 9:53 PM MEDICAL AUDITOR): Due to repeat colonoscopy 2023 Assessment & Plan (02/23/2019 9:32 PM CDT): Followup colonoscopy ordered. Referral sent to Dr. Quintero. Tra luo 02/19/2019 Assessment & Plan (01/05/2020 11:14 AM MEDICAL AUDITOR): Valtrex prn Other insomnia 02/19/2019 Assessment & Plan (08/26/2023 5:36 PM CDT): Patient wants to continue with the Ambien. She states that is the only thing that helps. She is aware of the black box warnings related to her age Assessment & Plan (07/19/2021 9:17 PM CDT): Prefers ambien Assessment & Plan (01/12/2021 9:53 PM MEDICAL AUDITOR): Continue Ambien. Patient is aware of the warning with her age and this medication. She desires to continue it. Assessment & Plan (01/05/2020 11:15 AM MEDICAL AUDITOR): Continue ambien prn Assessment & Plan (10/20/2019 1:43 PM MEDICAL AUDITOR): Continue Ambien Stage 3a chronic kidney disease 02/19/2019 Assessment & Plan (09/07/2024 10:47 PM CDT): Avoid nephrotoxic drugs including NSAIDs. Monitor labs. Assessment & Plan (03/08/2024 11:42 PM CDT): Avoid nephrotoxic drugs including NSAIDs. Monitor labs. Assessment & Plan (09/25/2023 12:59 PM MEDICAL AUDITOR): Avoid nephrotoxic drugs including NSAIDs. Monitor labs. [...] labs. Assessment & Plan (01/12/2021 9:51 PM MEDICAL AUDITOR): Avoid nephrotoxic drugs including NSAIDs. Monitor labs. Assessment & Plan (01/05/2020 11:13 AM MEDICAL AUDITOR): Avoid nephrotoxic drugs including NSAIDs. Monitor labs. Assessment & Plan (10/20/2019 1:41 PM MEDICAL AUDITOR): Avoid nephrotoxic drugs including NSAIDs. Monitor labs. Assessment & Plan (08/25/2019 8:29 AM CDT): Avoid NSAIDs. Resolved Problems Problem Noted Date Diagnosed Date Resolved Date Medicare annual wellness visit, subsequent 09/07/2024 03/22/2025 Assessment & Plan (09/07/2024 10:49 PM CDT): Encouraged healthy lifestyle, good nutrition and exercise. Encouraged Calcium and Vitamin D and weight bearing exercise for bone health. Reviewed immunizations. Reviewed age appropirate screenings. Medicare Wellness Documentation is completed within the chart BMI 26.0-26.9,adult 09/02/2024 03/22/20 25 Assessment & Plan (09/02/2024 9:13 AM CDT): Weight/BMI is in healthy range. Continue healthy lifestyle to maintain. Annual physical exam 03/08/2024 024 Assessment & Plan (03/08/2024 11:44 PM CDT): Encouraged healthy lifestyle, good nutrition and exercise. Encouraged Calcium and Vitamin D and weight bearing exercise for bone health. Reviewed immunizations Reviewed age appropirate screenings. BMI 25.0-25.9,adult 09/25/2023 03/03/20 24 Assessment & Plan (09/25/2023 11:09 AM MEDICAL AUDITOR): Weight/BMI is in healthy range. Continue healthy [...] re-evaluate Assessment & Plan (09/25/2023 12:59 PM MEDICAL AUDITOR): Probably multifactorial. Check labs and followup to [...] lifestyle to maintain. BMI 25.0-25.9,adult 02/21/2022 08/23/20 22 Assessment & Plan (02/21/2022 11:34 AM CDT): Weight/BMI is in healthy range. Continue healthy lifestyle to maintain. BMI 26.0-26.9,adult 02/10/2022 02/22/20 22 Assessment & Plan (02/10/2022 9:24 AM CDT): [...] 02/24/2022 Assessment & Plan (10/07/2021 9:58 PM MEDICAL AUDITOR): Probably multifactorial. Check labs and followup to re-evaluate Flu vaccine need 10/07/2021 02/24/2022 Assessment & Plan (10/07/2021 9:58 PM MEDICAL AUDITOR): Flu vaccine updated in the office today [...] 21 Assessment & Plan (01/13/2021 9:21 AM MEDICAL AUDITOR): Weight/BMI is in healthy range. Continue healthy lifestyle to maintain. Medicare annual wellness visit, subsequent 01/12/2021 08/23/2022 Assessment & Plan (02/24/2022 10:40 PM CDT): Encouraged healthy lifestyle, good nutrition and exercise. Encouraged Calcium and Vitamin D and weight bearing exercise for bone health. Reviewed immunizations. Reviewed age appropirate screenings. Medicare Wellness Documentation is completed within the chart Assessment & Plan (01/12/2021 9:53 PM MEDICAL AUDITOR): Encouraged healthy lifestyle, good nutrition and exercise. Encouraged Calcium and Vitamin D and weight bearing exercise for bone health. Reviewed immunizations. Reviewed age appropirate screenings. Medicare Wellness Documentation is completed within the chart Positive depression screening 01/05/2020 05/31/2020 Assessment & Plan (01/05/2020 11:14 AM MEDICAL AUDITOR): Known depression. See depression for treatment plan Medicare annual wellness visit, subsequent 01/05/2020 05/31/2020 Assessment & Plan (01/05/2020 11:15 AM MEDICAL AUDITOR): Encouraged healthy lifestyle, good nutrition and exercise. Encouraged Calcium and Vitamin D and weight bearing exercise for bone health. Reviewed immunizations Reviewed age appropirate screenings. Documentation is on the chart Cigarette smoker 01/05/2020 11/24/2020 Assessment & Plan (08/22/2020 10:45 PM CDT): Encouraged smoking cessation. Discussed 3 minutes. Reviewed options for assistance with cessation. Reviewed director long term care sequela associated with smoking. Pt declines assistance at this time but may contact the office at anytime for further help as they desire. Assessment & Plan (01/05/2020 8:23 AM MEDICAL AUDITOR): Encouraged smoking cessation. Discussed 3 minutes. Reviewed options for assistance with cessation. Reviewed mcfp sequela associated with smoking. Pt declines assistance [...] 024 Assessment & Plan (01/05/2020 11:13 AM MEDICAL AUDITOR): This is a significant, separately identifiable problem that was evaluated and managed on the same day as the wellness exam Refer to Ortho hand for further evaluation. No NSAIDs due to renal function. BMI 25.0-25.9,adult 10/20/2019 05/24/20 25 Assessment & Plan (03/12/2025 10:00 AM CDT): Weight/BMI is in healthy range. Continue healthy lifestyle to maintain. Assessment & Plan (08/22/2020 10:45 PM CDT): Weight/BMI is in healthy range. Continue healthy lifestyle to maintain. Assessment & Plan (01/05/2020 7:41 AM MEDICAL AUDITOR): Weight/BMI is in healthy range. Continue healthy lifestyle to maintain. Assessment & Plan (10/20/2019 8:35 AM MEDICAL AUDITOR): Weight/BMI is in healthy range. Continue healthy lifestyle to maintain. Need for 23-polyvalent pneum ococcal polysaccharide vaccine 08/25/2019 10/20/2019 Assessment & Plan (08/25/2019 8:34 AM CDT): Updated in office today PND (post-nasal drip) 06/30/20192019 BMI 23.0-23.9, adult 02/19/2019 019 Assessment & Plan (04/02/2019 8:19 AM CDT): Weight/BMI is in healthy range. Continue healthy lifestyle to maintain. Assessment & Plan (02/19/2019 3:29 PM CDT): BMI Follow-up includes: Discussed diet and exercising counseling. Other fatigue 02/19/2019 01/12/2021 Assessment & Plan (01/05/2020 11:15 AM MEDICAL AUDITOR): Probably multifactorial. Check labs and followup to re-evaluate Assessment & Plan (10/20/2019 1:43 PM MEDICAL AUDITOR): Check labs Elevated serum creatinine 02/19/2019 Encounters Date Type Department Care Team Description 09/24/2025 9:30 AM MEDICAL AUDITOR Office Visit [facility] Hand Surgery [address] [place] [address] [address] [place] [phone] Khadra Hunter MD Bilateral hand pain (Primary Dx) 09/24/2025 9:00 AM MEDICAL AUDITOR - 09/24/2025 11:59 PM MEDICAL AUDITOR Hospital Encounter [facility] Diag Imaging [address] [place] [id number] Bilateral hand pain Discharge Disposition: Discharge to home or self care 08/13/2025 10:30 AM CDT Office Visit [facility] Family Medicine [address] [facility] [address] [place] [phone] Gabi Victoria PA Medicare annual wellness visit, subsequent (Primary Dx); Moderate episode of recurrent major depressive disorder (HCC); Situational anxiety; Other insomnia; Chronic obstructive pulmonary disease, unspecified COPD type (HCC); Mixed hyperlipidemia; Abdominal pain, unspecified abdominal location; Stage 3a chronic kidney disease (HCC); Fatigue, unspecified type; Hyperglycemia; Former smoker; Flu vaccine need; BMI 24.0-24.9, adult 07/16/2025 9:00 AM CDT Office Visit [facility] Cardiology [address] [place] [address] Miguel Fatima MD Coronary artery calcification seen on CT scan (Primary Dx); RBBB 07/02/2025 10:45 AM CDT Office Visit [facility] Orthopedics and Sports Medicine [address] [place] [address] [address] [place] [phone] Lawson Hassan MD Osteoarthritis of glenohumeral joint, right (Primary Dx); Rotator cuff tear arthropathy, left from Last 3 Months Immunizations Immunization Administration Dates Next Due COVID-19 mRNA (PFIZER) 0.3 m L (30 mcg) vaccine (12 years and up) 08/19/2023 Influenza Virus Vaccine Trivalent Mdv 08/19/2018 ,11/15/2017 Influenza, Quad, Adjuvantate d, Intramuscular 08/19/2020 Influenza, Quadrivalent, Hig h Dose, Preservative Free, Intrr 08/14/2023,08/23/2022,08/23/2021,08/07 Influenza, Trivalent, Adjuva nted, Intramuscular 08/19/2018,11/15/2017 Influenza, Trivalent, High D ose, Split, Preservative Free, Intramuscular 08/13/2025,09/02/2024,08/07/2019,08/12 Influenza, Unspecified 12/13/2022(Deferr ed: Patient Refused),08/07/2019,08/12/2018 Pfizer [...] Comments Hyperlipidemia Allergic rhinitis Depression Suicide attempt 1968 a COPD (chronic obstructive pulmonary disease) Kidney stones Coronary artery calcification Anxiety Emphysema of lung Mixed conductive and sensorineural hearing loss GERD (gastroesophageal reflux disease) March 2024 Family History Medical History Relation Name Comments Cancer Father Pankaj furber Cancer, gioblastoma Father Pankaj furber Hyperlipidemia Mother Duke Relation Name Status Comments Father Pankaj cho (Age 56) Mother Duke Alive Social History Tobacco Use Types Packs/Day Years Used Date Smoking Tobacco: Former Cigarettes 1 20 0 04/09/1997 - 04/09/2020 Vaping Smokeless Tobacco: Never Tobacco Cessation:Counseling Given: Not Answered Alcohol Use Standard Drinks/Week Comments Yes 0 (1 standard drink = 0.6 oz pur e alcohol) Rarely PHQ-2 Answer Date Recorded PHQ-2 Total Score (If total score is 3 or more points, staff should administer the PHQ-9) 2 08/13/2025 AUDIT-C Answer Date Recorded Q1: How often do you have a drink containing alc ohol? Monthly or less 08/13/2025 Q2: How many drinks containi ng alcohol do you have on a typical day when you are drinking? 1 or 2 08/13/2025 Q3: How often do you have si x or more drinks on one occasion? Never 08/13/2025 Comments Unknown Sex and Gender Information Value Date Recorded Sex Assigned at Not on file Legal Sex Female 12:08 AM MEDICAL AUDITOR Gender Identity Not on file Sexual Orientation Not on file Occupation Industry Job Start Date Job End Date Retired Not on file Not on file Not on file Last Filed Vital Signs Vital Sign Reading Time Taken Comments Blood Pressure 120/70 08/13/2025 10:07 AM CDT Pulse 79 08/13/2025 10:07 AM CDT Temperature 36.6 C (97.8 F) 08/13/2025 10:07 AM CDT Respiratory Rate - - Oxygen Saturation 95% 08/13/2025 10:07 AM CDT Inhaled Oxygen Concentration - - Weight 60.4 kg (133 lb 3.2 oz) 08/13/2025 10:07 AM CDT Height 157.5 cm (5' 2) 08/13/2025 10:07 AM CDT Body Mass Index 24.36 08/13/2025 10:07 AM CDT Plan of Treatment Health Maintenance Due Date Last Done Comments Hepatitis B Screening 1968 Colon Cancer Screening-Colonoscopy 06/02/2024 06/02/2019 Covid-19 Vaccine (6 2024- 6 season) 2025 08/19/2023, 10/15/2022, 09/06/2021, Additional history exists Breast Cancer Screening-Mammogram 07/29/2025 07/29/2024, 06/28/2023, 03/13/2022, Additional history exists Lung Cancer Screening 11/03/2025 11/03/2024 , 04/20/2023, 03/13/2022, Additional history exists Osteoporosis Screening-Bone Density Scan 07/30/2026 07/30/2024, 03/13/2022, 09/30/2019 Depression Screening 08/13/2026 08/13/2025, 05/12/2025, 03/12/2025, Additional history exists Fall Risk Assessment 08/13/2026 08/13/2025, 05/12/2025, 03/12/2025, Additional history exists Well Visit 65+ 08/13/2026 08/13/2025, 0511/2024, 09/02/2024, Additional history exists DTaP/Tdap/Td Vaccine (2 - Td or Tdap) 09/23/2030 09/23/2020 Colon Cancer Screening-CT Colonography Discontinued 06/02/2019 Colon Cancer Screening-DNA Stool Discontinued 06/02/20 19 Colon Cancer Screening-FIT Discontinued 06/02/2019 Colon Cancer Screening-Sigmoidoscopy Discontinued 06/02/2019 Pneumococcal vaccine 65+ Completed 020, 08/25/2019, 08/19/2018 Zoster Vaccine Completed 11/22/2020, 09/23/2020 Hepatitis C Screening Completed 09/25/2023 Influenza Vaccine Completed 08/13/2025, , 08/14/2023, Additional history exists Procedures Procedure Name Priority Date/Time Associated Diagnosis Comments HI ARTHROCENTESIS ASPIR&/INJ SMALL JT/BURSA W/O US Routine 09/24/2025 9:30 AM MEDICAL AUDITOR Bilateral hand pain HI ARTHROCENTESIS ASPIR&/INJ SMALL JT/BURSA W/O US Routine 09/24/2025 9:30 AM MEDICAL AUDITOR Bilateral hand pain HI ARTHROCENTESIS ASPIR&/INJ SMALL JT/BURSA W/O US Routine 09/24/2025 9:30 AM MEDICAL AUDITOR Bilateral hand pain HI ARTHROCENTESIS ASPIR&/INJ SMALL JT/BURSA W/O US Routine 09/24/2025 9:30 AM MEDICAL AUDITOR Bilateral hand pain XR HAND RIGHT 3 OR MORE VIEWS Schedule Routine, Read Routine (OP Routine) 09/24/2025 9:08 AM MEDICAL AUDITOR Bilateral hand pain XR HAND LEFT 3 OR MORE VIEWS Schedule Routine, Read Routine (OP Routine) 09/24/2025 9:08 AM MEDICAL AUDITOR Bilateral hand pain HI ARTHROCENTESIS ASPIR&/INJ MAJOR JT/BURSA W/O US Routine 07/02/2025 10:45 AM CDT Rotator cuff tear arthropathy, left HI ARTHROCENTESIS ASPIR&/INJ MAJOR JT/BURSA W/O US Routine 07/02/2025 10:45 AM CDT Osteoarthritis of glenohumeral joint, right CT LUNG CANCER SCREENING Schedule Routine, Read Routine (OP Routine) 11/03/2024 2:19 PM MEDICAL AUDITOR Former smoker DEXA AXIAL SKELETON BONE DENSITY 1 OR MORE SITES Schedule Routine, Read Routine (OP Routine) 07/30/2024 8:12 AM CDT Menopause SCREENING MAMMOGRAM BILATERAL W DAMIEN Schedule Routine, Read Routine (OP Routine) 07/29/2024 3:15 PM CDT Breast cancer screening by mammogram HM COLONOSCOPY Routine 06/02/2019 from Last 3 Months or Most Recently Relevant to Health Maintenance Results * HI ARTHROCENTESIS ASPIR&/INJ SMALL JT/BURSA W/O US (09/24/2025 9:30 AM MEDICAL AUDITOR) Narrative Khadra Hunter MD - 09/24/2025 9:30 AM MEDICAL AUDITOR Khadra Hunter MD 09/25/2025 12:39 PM Small Joint (Foot, Fingers, Toes) Injection: left thumb MCP Performed by: Khadra Hunter MD Authorized by: Khadra Hunter MD Small Joint Injection/Aspiration: Consent Given by: Patient Verbal consent obtained?: Yes Written consent obtained?: No Supporting Documentation: Indications: Pain Procedure Details: Location: Thumb Site: Left thumb MCP Prep: patient was prepped and draped in usual sterile fashion Medications: 1 mL lidocaine 10 mg/mL (1 %); 40 mg methylPREDNISolone acetate 40 mg/mL Patient tolerance: Patient tolerated the procedure well with no immediate complications us Khadra Hunter MD IN CLINIC/BEDSIDE ORDERAB LES Final Result * HI ARTHROCENTESIS ASPIR&/INJ SMALL JT/BURSA W/O US (09/24/2025 9:30 AM MEDICAL AUDITOR) Khadra Alatorre MD - 09/24/2025 9:30 AM MEDICAL AUDITOR Khadra Hunter MD 09/25/2025 12:39 PM Small Joint (Foot, Fingers, Toes) Injection: L index MCP Performed by: Khadra Hunter MD Authorized by: Khadra Hunter MD Small Joint Injection/Aspiration: Consent Given by: Patient Verbal consent obtained?: Yes Written consent obtained?: No Supporting Documentation: Indications: Pain Procedure Details: Location: Index finger Site: L index MCP Prep: patient was prepped and draped in usual sterile fashion Medications: 1 mL lidocaine 10 mg/mL (1 %); 40 mg methylPREDNISolone acetate 40 mg/mL Patient tolerance: Patient tolerated the procedure well with no immediate complications us Khadra Hunter MD IN CLINIC/BEDSIDE ORDERAB LES Final Result * HI ARTHROCENTESIS ASPIR&/INJ SMALL JT/BURSA W/O US (09/24/2025 9:30 AM MEDICAL AUDITOR) Khadra Alatorre MD - 09/24/2025 9:30 AM MEDICAL AUDITOR Khadra Hunter MD 09/25/2025 12:39 PM Small Joint (Foot, Fingers, Toes) Injection: R index MCP Performed by: Khadra Hunter MD Authorized by: Khadra Hunter MD Small Joint Injection/Aspiration: Consent Given by: Patient Verbal consent obtained?: Yes Written consent obtained?: No Supporting Documentation: Indications: Pain Procedure Details: Location: Index finger Site: R index MCP Prep: patient was prepped and draped in usual sterile fashion Medications: 1 mL lidocaine 10 mg/mL (1 %); 40 mg methylPREDNISolone acetate 40 mg/mL Patient tolerance: Patient tolerated the procedure well with no immediate complications Khadra Hunter MD IN CLINIC/BEDSIDE ORDERAB LES Final Result * HI ARTHROCENTESIS ASPIR&/INJ SMALL JT/BURSA W/O US (09/24/2025 9:30 AM MEDICAL AUDITOR) Narrative Khadra Hunter MD - 09/24/2025 9:30 AM MEDICAL AUDITOR Khadra Hunter MD 09/25/2025 12:39 PM Small Joint (Foot, Fingers, Toes) Injection: R thumb MCP Performed by: Khadra Hunter MD Authorized by: Khadra Hunter MD Small Joint Injection/Aspiration: Consent Given by: Patient Verbal consent obtained?: Yes Written consent obtained?: No Supporting Documentation: Indications: Pain Procedure Details: Location: Thumb Site: R thumb MCP Prep: patient was prepped and draped in usual sterile fashion Medications: 1 mL lidocaine 10 mg/mL (1 %); 40 mg methylPREDNISolone acetate 40 mg/mL Patient tolerance: Patient tolerated the procedure well with no immediate complications Khadra Hunter MD IN CLINIC/BEDSIDE ORDERAB LES Final Result * XR Hand Right 3 or More Views (09/24/2025 9:08 AM MEDICAL AUDITOR) Anatomical Region Laterality Modality Upper Extremities, Hand Right Computed Radiography 09/24/2025 12:1 5 PM MEDICAL AUDITOR Impressions 09/24/2025 12:15 PM MEDICAL AUDITOR 1. No acute osseous abnormality of either hand. 2. Mild osteophytic change. 3. Mineralization associated with the left 1st metacarpal phalangeal joint with arthritic change. Electronically signed by: Juan Feliciano M.D. Narrative 09/24/2025 12:15 PM MEDICAL AUDITOR EXAM DESCRIPTION: XR HAND LEFT 3 OR MORE VIEWS, XR HAND RIGHT 3 OR MORE VIEWS REASON FOR STUDY: Bilateral hand pain. TECHNIQUE: XR HAND LEFT 4 VIEWS, XR HAND RIGHT 4 VIEWS COMPARISON: 01/24/2024. FINDINGS: Left hand: No acute fracture or dislocation. There is arthritic change most pronounced of the 1st metacarpophalangeal joint. There is some mineralization in the soft tissues. No erosion or aggressive osseous lesion. Mild arthritic change of the 2nd and 5th distal interphalangeal joints. Right hand: No acute fracture or dislocation. Mild arthritic change. No erosion or aggressive osseous lesion. Procedure Note Juan Feliciano MD - 09/24/2025 EXAM DESCRIPTION: XR HAND LEFT 3 OR MORE VIEWS, XR HAND RIGHT 3 OR MORE VIEWS REASON FOR STUDY: Bilateral hand pain. TECHNIQUE: XR HAND LEFT 4 VIEWS, XR HAND RIGHT 4 VIEWS COMPARISON: 01/24/2024. FINDINGS: Left hand: No acute fracture or dislocation. There is arthritic change most pronounced of the 1st metacarpophalangeal joint. There is some mineralization in the soft tissues. No erosion or aggressive osseous lesion. Mild arthritic change of the 2nd and 5th distal interphalangeal joints. Right hand: No acute fracture or dislocation. Mild arthritic change. No erosion or aggressive osseous lesion. IMPRESSION: 1. No acute osseous abnormality of either hand. 2. Mild osteophytic change. 3. Mineralization associated with the left 1st metacarpal phalangeal joint with arthritic change. Electronically signed by: Juan Feliciano M.D. us Khadra Hunter MD IMG XR PROCEDURES Final R esult * XR Hand Left 3 or More Views (09/24/2025 9:08 AM MEDICAL AUDITOR) Anatomical Region Laterality Modality Upper Extremities, Hand Left Computed Radiography 09/24/2025 12:1 5 PM MEDICAL AUDITOR Impressions 09/24/2025 12:15 PM MEDICAL AUDITOR 1. No acute osseous abnormality of either hand. 2. Mild osteophytic change. 3. Mineralization associated with the left 1st metacarpal phalangeal joint with arthritic change. Electronically signed by: Juan Feliciano M.D. Narrative 09/24/2025 12:15 PM MEDICAL AUDITOR EXAM DESCRIPTION: XR HAND LEFT 3 OR MORE VIEWS, XR HAND RIGHT 3 OR MORE VIEWS REASON FOR STUDY: Bilateral hand pain. TECHNIQUE: XR HAND LEFT 4 VIEWS, XR HAND RIGHT 4 VIEWS COMPARISON: 01/24/2024. FINDINGS: Left hand: No acute fracture or dislocation. There is arthritic change most pronounced of the 1st metacarpophalangeal joint. There is some mineralization in the soft tissues. No erosion or aggressive osseous lesion. Mild arthritic change of the 2nd and 5th distal interphalangeal joints. Right hand: No acute fracture or dislocation. Mild arthritic change. No erosion or aggressive osseous lesion. Procedure Note Juan Feliciano MD - 09/24/2025 EXAM DESCRIPTION: XR HAND LEFT 3 OR MORE VIEWS, XR HAND RIGHT 3 OR MORE VIEWS REASON FOR STUDY: Bilateral hand pain. TECHNIQUE: XR HAND LEFT 4 VIEWS, XR HAND RIGHT 4 VIEWS COMPARISON: 01/24/2024. FINDINGS: Left hand: No acute fracture or dislocation. There is arthritic change most pronounced of the 1st metacarpophalangeal joint. There is some mineralization in the soft tissues. No erosion or aggressive osseous lesion. Mild arthritic change of the 2nd and 5th distal interphalangeal joints. Right hand: No acute fracture or dislocation. Mild arthritic change. No erosion or aggressive osseous lesion. IMPRESSION: 1. No acute osseous abnormality of either hand. 2. Mild osteophytic change. 3. Mineralization associated with the left 1st metacarpal phalangeal joint with arthritic change. Electronically signed by: Juan Feliciano M.D. us Khadra Hunter MD IMG XR PROCEDURES Final R esult * HI ARTHROCENTESIS ASPIR&/INJ MAJOR JT/BURSA W/O US (07/02/2025 10:45 AM CDT) Narrative Lawson Hassan MD - 07/02/2025 10:45 AM CDT Lawson Hassan MD 07/03/2025 1:43 PM Large Joint (Hip, Knee, Shoulder) Injection: L subacromial bursa Performed by: Lawson Hassan MD Authorized by: Lawson Hassan MD Large Joint Injection/Aspiration: Consent Given by: Patient Written consent obtained: Yes Supporting Documentation: Indications: Pain Procedure Details: Location: Shoulder Site: L subacromial bursa Prep: patient was prepped using a clean technique (The skin was anesthetized with ethyl chloride spray prior to the injection.) Needle Size: 25 G Medications: 2 mL lidocaine 10 mg/mL (1 %); 40 mg triamcinolone 40 mg/mL Patient tolerance: Patient tolerated the procedure well with no immediate complications Lawson Hassan MD IN CLINIC/BEDSIDE ORDERABL ES Final Result * HI ARTHROCENTESIS ASPIR&/INJ MAJOR JT/BURSA W/O US (07/02/2025 10:45 AM CDT) Narrative Lawson Hassan MD - 07/02/2025 10:45 AM CDT Lawson Hassan MD 07/03/2025 1:43 PM Large Joint (Hip, Knee, Shoulder) Injection: R glenohumeral Performed by: Lawson Hassan MD Authorized by: Lawson Hassan MD Large Joint Injection/Aspiration: Consent Given by: Patient Written consent obtained: Yes Supporting Documentation: Indications: Pain Procedure Details: Location: Shoulder Site: R glenohumeral Prep: patient was prepped using a clean technique (The skin was anesthetized with ethyl chloride spray prior to the injection.) Needle Size: 25 G Medications: 2 mL lidocaine 10 mg/mL (1 %); 40 mg triamcinolone 40 mg/mL Patient tolerance: Patient tolerated the procedure well with no immediate complications Lawson Hassan MD IN CLINIC/BEDSIDE ORDERABL ES Final Result * CT Lung Cancer Screening (11/03/2024 2:19 PM MEDICAL AUDITOR) Anatomical Region Laterality Modality Chest N/A Computed Tomogra phy Gabi DURÁN IMG CT PROCEDURES Final Re sult * (ABNORMAL) Dexa Axial Skeleton Bone Density 1 or 2 Site (07/30/2024 8:12 AM CDT) SCRIBED DXA T-SCORE -0.6 SCRIBED DXA Z-SCORE 1.6 SCRIBED DXA BMD 0.979 Anatomical Region Laterality Modality Body N/A Radiographic Juanis ging Gabi DURÁN IMG DXA PROCEDURES Final R esult * Screening Mammogram Bilateral W Damien (07/29/2024 3:15 PM CDT) Anatomical Region Laterality Modality Breast Bilateral Mammography Gabi DURÁN IMG MAMMO PROCEDURES Final Result * COLONOSCOPY (06/02/2019) Colonoscopy Abnormal Historical Provider MD HEALTH MAINTENANCE Final Result from Last 3 Months or Most Recently Relevant to Health Maintenance Insurance MEDICARE ADVANTAGE Member Subscriber Plan / Payer ( fective 2020-Present) Name:Ani Ortiz Relation to Subscriber:Self Name:Ani Ortiz Payer ID:[id number] (NAIC) Type:[facility] MED[facility] Address: [address] [address] MEDICARE ADVANTAGE Care Teams Direct Marketing Representative Relationship Specialty Start Date End Date Gabi [place] PA [address] [facility] [address] [place] [address] PCP - General Internal Medicine 02/19/19
== END 2025-10-01 11:19 | disposition home or self-care (01) ==
PROVIDERS: PCP Physician Assistant; Visit Provider Physician Assistant
DX: Z12.2 Encounter for screening for malignant neoplasm of respiratory organs (principal); Z87.891 Personal history of nicotine dependence
CPT/HCPCS: 71271